=== PATIENT | male | born 1955 | race Caucasian/White ===

== ENCOUNTER → 2017-10-31 12:55 | Outpatient (CLI) | payer MEDICAID, SELFPAY ==
--- NOTE | 2017-10-31 13:00 | VDLE_ITS ---
Reason For Study: DVT (09/03/2017) RIGHT LEFT CFV is compressible, spontaneous, phasic, CFV is compressible, spontaneous, phasic, competent and demonstrates normal competent, and demonstrates normal augmentation. augmentation. FV is compressible, spontaneous, phasic, competent and demonstrates normal augmentation. POP V is compressible, spontaneous, phasic, competent and demonstrates normal augmentation. PTV is compressible. RT PerV is compressible. T/P Trunk is compressible. GSV is compressible at SFJ. GSV is partially compressible from proximal thigh to ankle. Interpretation Summary Deep veins of the right lower extremity are patent and compressible segmentally. There is no evidence of right lower extremity deep vein thrombosis. Valvular competence appears intact within the proximal deep venous system on the right . The right great saphenous vein near the sapheno- femoral junction is patent and compressible. Chronic venous changes are noted in the right great saphenous vein, from the right proximal thigh to the ankle. Ordering Physician: Zach Castillo Referring Physician: Ada Maravilla Performed By: Ariana Rollins, EMMA, RVT
== END ==
PROVIDERS: Family Provider Internal Medicine; PCP Internal Medicine; Visit Provider Internal Medicine Cardiovascular Disease
DX: I82.409 Acute embolism and thrombosis of unspecified deep veins of unspecified lower extremity (principal)
CPT/HCPCS: 93971

== ENCOUNTER 2017-11-11 12:25 | Emergency (ER) | payer MEDICAID, SELFPAY ==
[2017-11-11 12:26] VITALS: BP 159/75; PULSE 50; RESP 14; TEMP 36.8; O2SAT 98; BMI 37.7
--- NOTE | 2017-11-11 12:47 | RAD_ITS ---
STUDY: X-RAY - UNILATERAL RIBS ( LEFT ) WITH CHEST REASON FOR EXAM: Male, 62 years old. Left lower anterior rib pain. TECHNIQUE - RIBS: 4 view(s) of the ribs. TECHNIQUE - CHEST: Single PA view of the chest. COMPARISON: Comparison is made with prior chest radiograph dated September 02, 2017. FINDINGS - RIBS: Nondisplaced fractures involving the anterolateral aspects of the left seventh and eighth ribs. FINDINGS - CHEST: Stable mild elevation of the right hemidiaphragm. Stable increased markings at the lung bases with areas of confluence worse in the right lower lobe suggestive of scarring. There has been essentially no change. There is no demonstrated pleural abnormality. There is borderline cardiomegaly. Normal mediastinum and annamarie. Normal visualized pulmonary arteries. Normal visualized aortic arch and descending thoracic aorta. Normal visualized thoracic spine. Normal visualized ribs, clavicles, and shoulders. There is no demonstrated abnormality of the visualized soft tissue structures of the upper abdomen. RAD/Ribs Uni Min 3V w/PA Chest IMPRESSION: RIBS: Nondisplaced fractures involving the anterolateral aspects of the left seventh and eighth ribs. CHEST: Stable scarring at the lung bases. Electronically Signed: Duke Duran MD at 13:30 EST Tel [phone], Service support ,
--- NOTE | 2017-11-11 13:58 | ED.VISSUMM ---
- ER Visit Summary Date of Service: 11/11/17 Chief Complaint: [Injury to left chest] History of Present Illness: The patient is a 62 M [resents to the emergency department with pain to his left chest that started 5 days ago. Patient states that he was reaching over the top of a dumpster and felt a pop in his left ribs. Patient has had significant pain since that time. Patient complains of pain is worse with movement and deep breath. Patient's been taken ibuprofen which has not been relieving his pain. Patient denies any fever or cough. Denies any significant shortness of breath. Patient does have a history of A. fib and is on Xarelto.] Physical Examination: [HEENT-PERRLA, EOMI. Cranial nerves II through XII grossly intact. TMs clear. Mucous membranes moist. No adenopathy. Cardiovascular-regular rate and rhythm without murmur or ectopy Lungs-clear to auscultation, chest wall stable without crepitus or subcu emphysema. Patient does have tenderness to palpation over the left mid ribs in the mid axillary line that reproduces his pain. There is no ecchymosis or bruising noted. Abdomen-normoactive bowel sounds, soft, nontender, no rebound or rigidity, no peritoneal signs. Extremities-intact ?4, normal range of motion, normal pulses, atraumatic] Test Results: [X-rays of the left ribs obtained as well as chest x-ray showed fractures nondisplaced of ribs 7 and 8. No evidence of pneumothorax.] Emergency Department Course and Treatment: [Patient did not anything for pain initially.] Treatment Plan: [Patient will be given a prescription for Percocet for pain and advised to follow-up with his primary care physician within next 5-7 days.] Disposition: [Discharged to home in stable condition. Patient advised to return if worsening pain, hemoptysis, or increasing shortness of breath.] Impression: [Fracture left seventh and eighth ribs] This note was generated with [employer] dictation software. It may contain incorrect words, spelling, and punctuation that were not noted in review of the chart prior to signing ED Disposition - Plan for ED Patient: Chief Complaint: Chest Other Referrals: Ada Maravilla MD [Primary Care Provider] -
--- NOTE | 2017-11-11 14:01 | ED.DEP ---
ED Disposition - Plan for ED Patient: Chief Complaint: Chest Other Instructions: ED Fx Rib Prescriptions: Oxycodone HCl/Acetaminophen [Percocet 5/325] 1 tab PO Q6H PRN PRN #20 tab PRN Reason: Pain Referrals: Ada Maravilla MD [Primary Care Provider] - 5-7 Days
[2017-11-11 14:08] VITALS: BP 159/84; PULSE 59; RESP 18; TEMP 36.2; O2SAT 99
== END 2017-11-11 14:09 | disposition home or self-care (01) ==
PROVIDERS: Emergency Provider Emergency Medicine; Family Provider Internal Medicine; PCP Internal Medicine
DX: S22.42XA Multiple fractures of ribs, left side, initial encounter for closed fracture (principal); I48.91 Unspecified atrial fibrillation; I10 Essential (primary) hypertension; Z79.02 Long term (current) use of antithrombotics/antiplatelets; Z79.82 Long term (current) use of aspirin; Z79.891 Long term (current) use of opiate analgesic; Z79.899 Other long term (current) drug therapy; X58.XXXA Exposure to other specified factors, initial encounter; Y93.89 Activity, other specified; Y92.89 Other specified places as the place of occurrence of the external cause; Y99.8 Other external cause status
CPT/HCPCS: 71101; 99282

== ENCOUNTER 2017-11-26 05:19 | Day surgery (SDC) | payer MEDICAID, SELFPAY ==
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
[2017-11-26 05:44] VITALS: BP 153/87; PULSE 59; RESP 16; TEMP 36.3; O2SAT 96; BMI 38.0
[2017-11-26] MEDS: Clindamycin 900 MG/50 ML BAG 75 MG IV (07:08)
[2017-11-26] MEDS: Bupiv/Epi 0.5% Mpf 30 ML Vial (07:44)
[2017-11-26 07:54] VITALS: BP 139/78; BP 153/87; PULSE 67; RESP 16; TEMP 36.2; O2SAT 93
[2017-11-26 08:00] VITALS: BP 142/88; BP 153/87; PULSE 72; RESP 16; O2SAT 94
[2017-11-26] MEDS: Ketorolac 30 MG/ML Syringe IV (08:03)
--- NOTE | 2017-11-26 08:05 | OP.PCM_ITS ---
Report of Operation Date of Procedure: 11/26/17 Pre-Operative Diagnosis: Right knee medial meniscus tear. Right knee possible lateral meniscus tear. Right knee chondromalacia Post-Operative Diagnosis: Right knee medial meniscus tear. Right knee chondromalac Surgery/Procedure Performed:: 1. Right knee arthroscopic partial medial meniscectomy. 2. Right knee arthroscopic medial compartment chondroplasty Description of Surgical Findings:: See operative report software engineering manager: None Type of Anesthesia:: General Anesthesiologist: Berto Hendrickson Special Medications: 900 mg clindamycin Estimated Blood Loss (mL): 5 Fluids Replaced: 1000 ml crystalloid Description of Procedure: 62-year-old male who presented to my office with mechanical knee pain acute in onset. MRI revealed anterior horn and posterior horn medial meniscus tears with possible posterior horn lateral meniscus tear with chondromalacia. Risks and benefits of arthroscopic treatment were discussed the patient is arthroscopy was recommended after failing conservative treatment. Risks included but were not limited to blood loss, DVTs, PEs, neurovascular damage, infection, general risk of anesthesia including loss of life. Patient demonstrated understanding and was able to sign informed consent. On the date of the procedure, the patient's R lower extremity was marked in the preoperative area. Patient was brought back to the operating room where they were transferred to the bed. Anesthesia assumed control of the C-spine airway and administered anesthetic. All bony prominences were identified and well- padded and the R leg was placed in the arthroscopic leg fritz. The contralateral leg was then draped over the bed and well-padded. There was padding underneath both sciatic nerves. The foot of the bed was then dropped and the R leg was prepped in a sterile fashion. The surgeon then scrubbed. Upon reentering the room, the operative leg was draped in a standard orthopedic fashion. A timeout was called, everyone agreed upon the side, the site, the procedure to be performed, patient's identity and antibiotics given. Incisions were marked out for the medial and lateral infrapatellar portals. Esmarch bandage was then used to exsanguinate the leg and tourniquet was placed at 250 mmHg. At this time, the lateral portal incision was made in a vertical fashion. The trocar was placed into the joint. The camera was then placed and the patellofemoral joint was visualized. The patella did appear to have 3 chondral changes. The trochlea appeared to have 3 chondral changes. We then directed our attention to the medial gutter where there was no foreign body. Then directed our attention to the medial joint compartment. There were grade 2 chondral changes on the medial distal femur area over the lateral portion of the medial distal femoral condyle with a cartilage flap, grade 2-3 chondral changes on the medial tibial plateau. The medial meniscus had large posterior horn cleavage tear and anterior horn radial tear. Fragments from the anterior horn made initial visualization difficult. The medial portal was then placed under direct visualization using a spinal needle an 11 blade scalpel. Once the portal was made the shaver was placed in the knee in the anterior horn frayed fragments were debrided. This exposed a true anterior horn tear in the anterior portion of the meniscus tear was debrided until there were no free edges once this was done a probe was placed in the joint and the meniscus was probed finding arch posterior horn cleavage tear confirmation. The biters and laura were then used sequentially to debriding get rid of any free edges that could be a source of pain and catching in the meniscus tear. Once we felt medial meniscus tear was adequately debrided, we again visualized the joint and noted the meniscus tear was adequately debrided. At this time we also noted the cartilage flap on the distal femoral condyle which was debrided with the shaver back to healthy cartilage performing a chondroplasty. Attention was then turned towards the notch where the anterior cruciate ligament was intact. PCL was visualized and appeared intact. Attention was then directed towards the lateral compartment where the lateral distal femur had minimal chondral changes, the lateral proximal tibia had minimal chondral changes. The lateral meniscus was probed with a 90? probe and found to be stable with no significant tears. We then directed our attention to the lateral gutter, which was visualized and no free bodies were noted. At this time the wound was copiously irrigated out with normal saline with epinephrine. The wound was closed with 4-0 nylon and 0.5% Marcaine and epinephrine were injected for local anesthetic. Xeroform was placed over the incision. Sterile dressing was placed. Compressive dressing was placed. Tourniquet was let down. For that there was then placed up. Patient was awakened by anesthesia patient was transferred to the PACU for recovery in stable condition. Postoperative plan: Patient will be made weight-bear as tolerated. Return to activities as tolerated. He will come to the office in 2 weeks for postoperative wound check and suture removal. If he is doing well that time he can follow-up as needed. - Complications None - Admit VTE Documentation VTE Present on Admission: No VTE Mechan Device Prophylaxis: SCD's, Thigh High DARIELA Hose VTE Pharm Prophylaxis ordered?: Yes
[2017-11-26 08:15] VITALS: BP 149/85; BP 153/87; PULSE 65; RESP 16; O2SAT 95
[2017-11-26 08:30] VITALS: BP 146/83; BP 153/87; PULSE 68; RESP 16; TEMP 36.3; O2SAT 97
[2017-11-26 09:00] VITALS: BP 153/87
== END 2017-11-26 09:32 | disposition home or self-care (01) ==
LOC: SDC 05:20 → AC 05:21
PROVIDERS: Family Provider Internal Medicine; PCP Internal Medicine; Visit Provider Specialist
PROC: (CPT 29870; principal; 2017-11-26 06:55)
DX: S83.241A Other tear of medial meniscus, current injury, right knee, initial encounter (principal); M94.261 Chondromalacia, right knee; I11.0 Hypertensive heart disease with heart failure; I50.9 Heart failure, unspecified; I48.91 Unspecified atrial fibrillation; E78.00 Pure hypercholesterolemia, unspecified; I80.9 Phlebitis and thrombophlebitis of unspecified site; G47.30 Sleep apnea, unspecified; Z86.73 Personal history of transient ischemic attack (TIA), and cerebral infarction without residual deficits; Z79.02 Long term (current) use of antithrombotics/antiplatelets; Z79.891 Long term (current) use of opiate analgesic; Z79.82 Long term (current) use of aspirin; Z79.899 Other long term (current) drug therapy; X58.XXXA Exposure to other specified factors, initial encounter; Y93.9 Activity, unspecified; Y92.9 Unspecified place or not applicable; Y99.9 Unspecified external cause status
CPT/HCPCS: 01400; 29881; J7120; J2405

== ENCOUNTER → 2017-11-28 13:53 | Outpatient (CLI) | payer MEDICAID, SELFPAY ==
--- NOTE | 2017-11-28 13:55 | VDLE_ITS ---
Reason For Study: RLE pain RIGHT LEFT GSV is normal. CFV is compressible, spontaneous, phasic, CFV is compressible, spontaneous, phasic, competent, and demonstrates normal competent and demonstrates normal augmentation. augmentation. FV is compressible, spontaneous, phasic, competent and demonstrates normal augmentation. POP V is compressible, spontaneous, phasic, competent and demonstrates normal augmentation. T/P Trunk is compressible. PTV is compressible. Unable to visualize PER V due to edema and vessel depth. Prev exam 10/31/17 partial SVT in GSV; Appears resolved. Procedure Exam performed in department. The study was technically difficult. The exam was diagnostic. A preliminary report was called and/or faxed to Dr. He @ [phone] @ 3:00 pm. Interpretation Summary Deep veins of the right lower extremity are patent and compressible segmentally. There is no evidence of right lower extremity deep vein thrombosis. Valvular competence appears intact within the proximal deep venous system on the right . The right greater saphenous vein appears patent and compressible segmentally. The right peroneal vein was not visualized due to edema. 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 Ordering Physician: Prudencio He Referring Physician: Ada Maravilla Performed By: Ariana Rollins, JEWELCS, RVT
== END ==
PROVIDERS: Family Provider Internal Medicine; PCP Internal Medicine; Visit Provider Specialist
DX: M25.561 Pain in right knee (principal)
CPT/HCPCS: 93971

== ENCOUNTER → 2017-12-12 08:33 | Outpatient (CLI) | payer MEDICAID, SELFPAY ==
[2017-12-12 09:49] LABS: AST(SGOT) 43 U/L (15-37); Alanine Aminotransfer ALT/SGPT 34 U/L (16-61); Albumin, Serum 2.9 g/dL (3.2-5.0); Alkaline Phosphatase 167 U/L (45-117); Bilirubin, Direct 0.45 mg/dL (0.00-0.30); Cholesterol 131 mg/dL (200); Globulin 3.9 g/dL (2.2-4.2); High Density Lipoprotein 57 mg/dL; Protein, Total 6.8 g/dL (6.4-8.2); Triglycerides 79 mg/dL; Very Low Density Lipoprotein 16 mg/dL (5-40)
[2017-12-12 09:53] LABS: Thyroid Stim Hormone (TSH) 1.26 uIU/mL (0.358-3.74)
== END ==
PROVIDERS: Internal Medicine Cardiovascular Disease; Family Provider Internal Medicine; PCP Internal Medicine; Visit Provider Nurse Practitioner Family
DX: I25.10 Atherosclerotic heart disease of native coronary artery without angina pectoris (principal); Z79.899 Other long term (current) drug therapy
CPT/HCPCS: 36415; 80061; 80076; 84439; 84443

== ENCOUNTER → 2018-02-03 12:18 | Outpatient (CLI) | payer MEDICAID, SELFPAY ==
[2018-02-03 14:13] LABS: Anion Gap 6 (5-15); BUN 22 mg/dL (7-18); BUN/Creat Ratio 14.1 RATIO (10-20); Calcium,Total 8.3 mg/dL (8.5-10.1); Chloride 108 mmol/L (98-107); Creatinine, Serum 1.56 mg/dL (0.70-1.30); EST Glomerular Filtration Rate 48 mL/min (>60); Est Glom Filt Rate - Afr Amer 59 mL/min (>60); Glucose 100 mg/dL (74-106); Potassium 4.3 mmol/L (3.5-5.1); Sodium Level 141 mmol/L (136-145)
== END ==
PROVIDERS: Family Provider Internal Medicine; PCP Internal Medicine; Visit Provider Internal Medicine Cardiovascular Disease
DX: I50.9 Heart failure, unspecified (principal); N28.9 Disorder of kidney and ureter, unspecified
CPT/HCPCS: 36415; 80048

== ENCOUNTER → 2018-04-20 08:50 | Outpatient (CLI) | payer MEDICAID, SELFPAY ==
[2018-04-20 10:10] LABS: Anion Gap 8 (5-15); BUN 13 mg/dL (7-18); BUN/Creat Ratio 10.3 RATIO (10-20); Calcium,Total 7.9 mg/dL (8.5-10.1); Chloride 107 mmol/L (98-107); Creatinine, Serum 1.26 mg/dL (0.70-1.30); EST Glomerular Filtration Rate 62 mL/min (>60); Est Glom Filt Rate - Afr Amer 75 mL/min (>60); Glucose 117 mg/dL (74-106); Potassium 4.1 mmol/L (3.5-5.1); Sodium Level 143 mmol/L (136-145)
== END ==
PROVIDERS: Family Provider Internal Medicine; PCP Internal Medicine; Visit Provider Internal Medicine Cardiovascular Disease
DX: I42.8 Other cardiomyopathies (principal); I43 Cardiomyopathy in diseases classified elsewhere; I48.2 Chronic atrial fibrillation; I25.10 Atherosclerotic heart disease of native coronary artery without angina pectoris; I11.0 Hypertensive heart disease with heart failure; I50.9 Heart failure, unspecified
CPT/HCPCS: 36415; 80048

== ENCOUNTER 2018-05-04 22:12 | Observation (INO) | payer MEDICAID, SELFPAY ==
[2018-05-04 22:13] VITALS: BP 166/92; PULSE 78; RESP 18; TEMP 36.1; O2SAT 98; BMI 38.0
--- NOTE | 2018-05-04 22:17 | ED.RN ---
RN CALLED FOR EKG, PULLED OLD EKG'S FOR
[2018-05-04 22:35] VITALS: BP 170/86; PULSE 74; RESP 14; TEMP 36.7; O2SAT 98
--- NOTE | 2018-05-04 22:53 | EKG12_ITS ---
Test Reason : CP Blood Pressure : / mmHG Vent. Rate : 073 BPM Atrial Rate : 073 BPM P-R Int : 182 ms QRS Dur : 104 ms QT Int : 432 ms P-R-T Axes : 038 -09 032 degrees QTc Int : 475 ms Normal sinus rhythm Normal ECG Confirmed by CHERISE MARTINES, LARA ([id number]), book or script editor JANETH DING ([id number]) on 05/07/2018 9:56:29 AM Referred By: KENRICK Confirmed By:LARA LUONG MD
--- NOTE | 2018-05-04 22:55 | RAD_ITS ---
STUDY: X-RAY CHEST REASON FOR EXAM: Male, 62 years old. Chest pain. TECHNIQUE: Single AP portable view of the chest. COMPARISON: September 02, 2017. FINDINGS: Telemetry wires overlie the chest. Lungs are mildly hypoexpanded. There is no acute infiltrate or mass. There is no demonstrated pleural abnormality. Follow-up Normal mediastinum and annamarie. Normal visualized pulmonary arteries. Normal visualized aortic arch and descending thoracic aorta. The thoracic spine is obscured by the mediastinum. Normal visualized ribs, clavicles, and shoulders. There is no demonstrated abnormality of the visualized soft tissue structures of the upper abdomen. RAD/Chest 1 View (Portable) IMPRESSION: Borderline cardiomegaly without acute pulmonary abnormality or major interval change Electronically Signed: Alexis Nelson DO at 23:24 EDT Tel [phone], Service support ,
--- NOTE | 2018-05-04 22:56 | ED.DCSUM_ITS ---
- ER Visit Summary Date of Service: 05/04/18 Chief Complaint: Chest pain History of Present Illness: The patient is a 62 M sudden chest pain while driving home around 7 PM. Pain is sharp midsternal rating into his scapula bilaterally. Complains of dyspnea and nausea. No diaphoresis. Pain 7 out of 10. Currently states there is tightness. No arm numbness. Denies previous similar symptoms in the past. Denies history of NC. Patient followed by Dr. Castillo history of chronic A. fib. Stress test in August pre- cardioversion. He is on baby aspirin, Xarelto. DVT in the past. No missed doses of medications. States he had a heart cath 5-[address] Zurita with no intervention. Physical Examination: General: Alert and oriented ?3, no acute distress HEENT: Normocephalic, atraumatic. Moist mucosa membranes Neck: supple, nontender. Cardiovascular: Regular rate and rhythm, no murmurs Respiratory: Normal breath sounds, symmetric, no distress Abdomen: Soft, nontender, nondistended Extremities: Nontender, minimal lower extremity edema, pulses intact ?4 Neuro: no focal neurological deficits. Test Results: EKG: Sinus rhythm rate of 73, no ST or T-wave changes. Hemoglobin 12.5. Creatinine 1.55. Platelets 123. Troponin negative. Chest x- ray negative. Emergency Department Course and Treatment: Patient given additional aspirin, nitro series given symptom-free on reevaluation. Cardiac workup negative. Creatinine 1.55, creatinine with range from 1.02-1.56. Platelets 123, previous platelets in September is 97. GLORIA scores a 3. Heart scores a 4. He is on Xarelto. He has risk factors. Discussed with Dr. Arevalo for admission for cardiac rule out. Treatment Plan: [] Disposition: Admission Impression: Acute chest pain This note was generated with [employer] dictation software. It may contain incorrect words, spelling, and punctuation that were not noted in review of the chart prior to signing ED Disposition - Plan for ED Patient: Disposition: Acute Care Hospital [facility] Chief Complaint: Chest Pain Diagnosis: Chest pain Referrals: Ada Maravilla MD [Primary Care Provider] -
[2018-05-04 23:03] VITALS: BP 146/72; PULSE 68
[2018-05-04 23:04] LABS: Absolute Lymphocyte Count 1.51 X10^3/ul (0.83-4.51); Basophil# 0.01 X10^3/uL; Basophil% 0.2 % (0-1); Eosinophil# 0.08 X10^3/uL; Eosinophils% 1.9 % (0-5); Hematocrit 37.3 % (40-54); Hemoglobin 12.5 g/dl (13.0-16.5); Lymphocyte # 1.51 X10^3/ul (4.0); Lymphocyte % 35.9 % (19-41); Mean Corp Hgb Conc 33.5 g/gl (32-36); Mean Corpuscular Hgb 32.1 pg (27.0-32.0); Mean Corpuscular Volume 95.6 fL (80-94); Mean Platelet Vol. 10.9 fl (6.2-12.0); Monocyte# 0.61 X10^3/uL; Monocyte% 14.5 % (0-10); Neutrophil % 47.5 % (47-70); Platelet Count 123 K/mm3 (150-450); RBC Distribution Width CV 13.9 % (11.6-14.6); RBC Distribution Width SD 46.9 fl (35.1-43.9); White Blood Count 4.2 K/mm3 (4.4-11.0)
[2018-05-04] MEDS: Aspirin 81 MG TAB.CHEW 162 MG PO (23:04)
[2018-05-04 23:08] VITALS: BP 163/96; PULSE 77
[2018-05-04 23:09] LABS: POSITIVE COUNT NO; POSITIVE DIFFERENTIAL NO
[2018-05-04 23:10] LABS: POSITIVE MORPHOLOGY NO
[2018-05-04 23:13] VITALS: BP 152/93; PULSE 73
[2018-05-04 23:18] LABS: Anion Gap 6 (5-15); BUN 18 mg/dL (7-18); BUN/Creat Ratio 11.6 RATIO (10-20); Calcium,Total 8.2 mg/dL (8.5-10.1); Chloride 106 mmol/L (98-107); Creatinine, Serum 1.55 mg/dL (0.70-1.30); EST Glomerular Filtration Rate 49 mL/min (>60); Est Glom Filt Rate - Afr Amer 59 mL/min (>60); Estimated Creatinine Clearance 55.63 ml/min; Glucose 126 mg/dL (74-106); Potassium 3.5 mmol/L (3.5-5.1); Sodium Level 141 mmol/L (136-145)
--- NOTE | 2018-05-04 23:55 | HP.PCM_ITS ---
Problem List (1) Non-ischemic cardiomyopathy Status: Chronic (2) Cardiomyopathy in other diseases classified elsewhere Status: Chronic (3) PAF (paroxysmal atrial fibrillation) Status: Chronic Comment: [facility] in August 2017; (4) GOMEZ (dyspnea on exertion) Status: Chronic (5) Obesity (BMI 30-39.9) Status: Chronic (6) HTN (hypertension) Status: Chronic (7) History of cardioversion Status: Resolved (8) H/O cardiac catheterization Status: Resolved (9) History of echocardiogram Status: Resolved (10) Erectile dysfunction Status: Chronic (11) ZAID (obstructive sleep apnea) Status: Chronic (12) Chest pain Status: Acute Qualifiers: Chest pain type: unspecified Qualified Code(s): R07.9 - Chest pain, unspecified History of Present Illness Date of Admission: 05/04/18 Chief Complaint: chest pain The patient is a 62 year old male patient with a past medical history of atrial fibrillation and cardiomyopathy presents to the ER with chest pain. Onset of the pain began at 7:00 this evening whilst driving. The pain radiated to his shoulder blades and substernal anteriorly. The pain was relieved by nitroglycerin. He states he has had similar chest pain over the past few weeks when he is using his push mower. He is currently free of chest pain. There was a negative stress test in August prior to his cardioversion. He will be admitted for further cardiac workup. Past Medical History Past Medical History (Chronic Problems): Chronic Problems (Last Reviewed 10/17/17 @ 11:10 by Jaclyn Cannon) Valvular heart disease (Chronic) Non-ischemic cardiomyopathy (Chronic) Cardiomyopathy in other diseases classified elsewhere (Chronic) PAF (paroxysmal atrial fibrillation) (Chronic) [facility] in August 2017; GOMEZ (dyspnea on exertion) (Chronic) Obesity (BMI 30-39.9) (Chronic) HTN (hypertension) (Chronic) Long-term use of high-risk medication (Chronic) Chronic atrial fibrillation (Chronic) on Xarelto Benign essential hypertension (Chronic) Erectile dysfunction (Chronic) Obesity (BMI 30-39.9) (Chronic) ZAID (obstructive sleep apnea) (Chronic) CHF (congestive heart failure) (Chronic) Cardiomyopathy (Chronic) CAD (coronary artery disease) (Chronic) DVT (deep venous thrombosis) (Chronic) Medical History: Medical History (Last Reviewed 10/17/17 @ 11:10 by Jaclyn Cannon) HTN (hypertension) (Chronic) I10 History of cardioversion (Resolved) Onset Date: ~08/2017 Z98.890 History of echocardiogram (Resolved) Onset Date: ~08/2017 Z92.89 History of echocardiogram (Acute) Onset Date: ~01/2013 Z92.89 Erectile dysfunction (Chronic) N52.9 Obesity (BMI 30-39.9) (Chronic) E66.9 ZAID (obstructive sleep apnea) (Chronic) G47.33 DVT (deep venous thrombosis) (Chronic) I82.409 Renal insufficiency (Acute) N28.9 Allergies cefuroxime axetil [From Ceftin] Allergy (Verified 05/04/18 22:18) Rash hydrocodone bitartrate [From Vicodin] Allergy (Verified 05/04/18 22:18) Rash Penicillins Allergy (Verified 05/04/18 22:18) Hives DIFFICULTY BREATHING carvedilol [From Coreg] Adverse Reaction (Verified 05/04/18 22:18) Other lisinopril Adverse Reaction (Verified 05/04/18 22:18) Other Home Medications: Ambulatory Orders Medication Instructions Recorded aspirin 81 mg tablet,delayed 81 mg PO QDAY #30 tab 10/07/17 release Acetaminophen [Tylenol Extra 500 - 1,000 mg PO Q6H PRN PRN 11/19/17 Strength] Metoprolol Tartrate [Lopressor 100 mg PO BID 11/19/17 (beta abram)] Rivaroxaban [Xarelto] 20 mg PO QDAY 11/19/17 furosemide 40 mg tablet 40 mg PO QDAY #90 tab 01/16/18 amlodipine 5 mg tablet 5 mg PO QHS #30 tab 04/02/18 pravastatin 20 mg tablet 20 mg PO QHS #30 tab 04/03/18 Amiodarone HCl 200 mg PO DAILY 05/04/18 Surgical History: Surgical History (Last Reviewed 12/11/17 @ 08:43 by Ruddy Bobby) H/O cardiac catheterization (Resolved) Onset Date: ~06/2009 Z98.890 Surgical History: - Psychiatric History: No pertinent psych hx Smoking Status: Never smoker - *Family History Maternal Family History: Family History (Last Reviewed 12/11/17 @ 08:43 by Ruddy Bobby) Mother CAD (coronary artery disease) History Items: Heart Disease Paternal Family History: Family History (Last Reviewed 12/11/17 @ 08:43 by Ruddy Bobby) Mother CAD (coronary artery disease) History Items: Cancer, Heart Disease Review of Systems Constitutional: Denies: Chills, Fever, Weight Change HEENT: Denies: Head Aches, Sinus Congestion, Sinus Drainage Cardiovascular: Reports: Chest Pain. Denies: Palpitations Respiratory: Denies: Cough, Shortness of breath at rest, Sputum production Gastrointestinal: Denies: Abdominal Pain, Nausea, Vomiting Genitourinary: Denies: Dysuria Musculoskeletal: Denies: Joint Pain, Joint Tenderness Skin: Denies: Rash, Wounds Neurological: Denies: Numbness, Tingling, Focal weakness Psychiatric: Denies: Anxiety, Depression, Homicidal Ideations, Suicidal Ideations Hematologic/ Lymphatic: Denies: Easy Bruising, Easy Bleeding VTE Information - Inpt Only VTE Present on Admission: No VTE Mechan Device Prophylaxis: None VTE Pharm Prophylaxis ordered?: No Patient Problems: Active and Suspected Problems (Last Reviewed 10/17/17 @ 11:10 by Jaclyn Cannon ) Chest pain (Acute) - Physical Exam General: Alert, Oriented x3, Cooperative HEENT: Atraumatic, Normocephalic Neck: Supple Lungs: Clear to auscultation, Normal air movement Cardiovascular: Regular rate, Normal S1, Normal S2, No murmurs Abdomen: Bowel Sounds Present, Soft, Non Tender, Obese Extremities: Capillary Refill Less than 3 Seconds, Edema - 2+ lower ext edema Skin: No rashes Musculoskeletal: No Tenderness to Palpation of Joints or Extremities Neurological: Neuro grossly intact Psych/Mental Status: Normal Affect, Appropriate Vital Signs Temp Pulse Resp BP Pulse Ox 98.0 F 73 14 152/93 H 98 05/04/18 22:35 05/04/18 23:13 05/04/18 22:35 05/04/18 23:13 05/04/18 22:35 Oxygen Flow Rate (L/min) 2 Oxygen Delivery Method Nasal Cannula Weight: 280 lb Body Mass Index (BMI) 38.0 Finger Stick Blood Glucose 86 Laboratory Tests Past 24 Hrs 05/04/18 05/04/18 22:50 22:50 WBC 4.2 L RBC 3.90 L Hgb 12.5 L Hct 37.3 L MCV 95.6 H MCH 32.1 H MCHC 33.5 RDW 13.9 RDW Differential 46.9 H Plt Count 123 L MPV 10.9 Immature Gran % (Auto) 0.000 Neut % (Auto) 47.5 Lymph % (Auto) 35.9 Dixie % (Auto) 14.5 H Eos % (Auto) 1.9 Baso % (Auto) 0.2 Absolute Neuts (auto) 2.0 Absolute Lymphs (auto) 1.51 Total Counted Not Reportable Sodium 141 Potassium 3.5 Chloride 106 Carbon Dioxide 29.0 Anion Gap 6 BUN 18 Creatinine 1.55 H Estim Creat Clear Calc 55.63 Est GFR (MDRD) Af Amer 59 L Est GFR (MDRD) Non-Af 49 L BUN/Creatinine Ratio 11.6 Glucose 126 H Calcium 8.2 L Troponin I < 0.015 Assessment/Plan All Active Problems (Last Reviewed 10/17/17 @ 11:10 by Jaclyn Cannon) History of cardioversion (Resolved ~08/2017) H/O cardiac catheterization (Resolved ~06/2009) History of echocardiogram (Resolved ~08/2017) History of echocardiogram (Acute ~01/2013) Chest pain (Acute) VTE (venous thromboembolism) (Acute) Dyspnea (Acute) Renal insufficiency (Acute) Syphilis (Resolved) Cerebrovascular disease (Ruled-out) Chronic Problems (Last Reviewed 10/17/17 @ 11:10 by Jaclyn Cannon) Valvular heart disease (Chronic) Non-ischemic cardiomyopathy (Chronic) Cardiomyopathy in other diseases classified elsewhere (Chronic) PAF (paroxysmal atrial fibrillation) (Chronic) DCCV in August 2017; GOMEZ (dyspnea on exertion) (Chronic) Obesity (BMI 30-39.9) (Chronic) HTN (hypertension) (Chronic) Long-term use of high-risk medication (Chronic) Chronic atrial fibrillation (Chronic) on Xarelto Benign essential hypertension (Chronic) Erectile dysfunction (Chronic) Obesity (BMI 30-39.9) (Chronic) ZAID (obstructive sleep apnea) (Chronic) CHF (congestive heart failure) (Chronic) Cardiomyopathy (Chronic) CAD (coronary artery disease) (Chronic) DVT (deep venous thrombosis) (Chronic) plan - admit to progressive care unit for observation - cycle cardiac enzymes - morphine, nitro and aspirin per routine - nuclear exercise stress test in am - continue routine medications - DC home if stress test negative - He routinely sees Dr Castillo for cardiology care Code Visit OBSV E&M: [id number] Initial observation care L2
[2018-05-05] VITALS (7 sets, daily range): BP systolic 139–154; BP diastolic 68–91; PULSE 59–69; RESP 15–18; TEMP 36.5–36.7; O2SAT 98; BMI 38.0
--- NOTE | 2018-05-05 00:48 | NURSING ---
Called Peter Martin RN in ED at 0026 and informed that patient could be transferred at this time. Called Sara Han for EKG at 0045.
[2018-05-05] MEDS: Calcium Carbonate 500 MG Tablet PO (01:45)
[2018-05-05 02:58] LABS: Hematocrit 33.9 % (40-54); Hemoglobin 11.2 g/dl (13.0-16.5); Mean Corpuscular Hgb 31.8 pg (27.0-32.0); Mean Corpuscular Volume 96.3 fL (80-94); Mean Platelet Vol. 10.5 fl (6.2-12.0); Platelet Count 97 K/mm3 (150-450); RBC Distribution Width SD 47.2 fl (35.1-43.9); Red Blood Count 3.52 M/mm3 (4.6-6.2); White Blood Count 2.6 K/mm3 (4.4-11.0)
[2018-05-05 03:02] LABS: International Normalized Ratio 3.2; Prothrombin Time (Protime)PT. 32.9 SECONDS (11.7-14.9)
[2018-05-05 03:03] LABS: Partial Thromboplast Time 40.5 Seconds (24.1-36.2)
[2018-05-05 03:22] LABS: ALB/GLOB Ratio 0.8 RATIO (0.9-2.4); AST(SGOT) 36 U/L (15-37); Alanine Aminotransfer ALT/SGPT 28 U/L (16-61); Albumin, Serum 2.6 g/dL (3.2-5.0); Alkaline Phosphatase 162 U/L (45-117); Anion Gap 9 (5-15); BUN 18 mg/dL (7-18); BUN/Creat Ratio 13.3 RATIO (10-20); Calcium,Total 7.8 mg/dL (8.5-10.1); Chloride 107 mmol/L (98-107); Cholesterol 97 mg/dL (200); Creatinine, Serum 1.35 mg/dL (0.70-1.30); EST Glomerular Filtration Rate 57 mL/min (>60); Est Glom Filt Rate - Afr Amer 69 mL/min (>60); Estimated Creatinine Clearance 63.87 ml/min; Globulin 3.4 g/dL (2.2-4.2); Glucose 108 mg/dL (74-106); High Density Lipoprotein 41 mg/dL; Potassium 3.6 mmol/L (3.5-5.1); Sodium Level 144 mmol/L (136-145); Triglycerides 88 mg/dL; Very Low Density Lipoprotein 18 mg/dL (5-40)
[2018-05-05] MEDS: Aspirin E.C. 81 MG Tablet PO (05:55)
[2018-05-05 05:56] LABS: Absolute Lymphocyte Count 1.17 X10^3/ul (0.83-4.51); Absolute Neutrophil Count 1.2 X10^3/uL (2.0-7.7); Basophil# 0.01 X10^3/uL; Basophil% 0.4 % (0-1); Eosinophil# 0.08 X10^3/uL; Eosinophils% 2.9 % (0-5); Lymphocyte # 1.17 X10^3/ul (4.0); Lymphocyte % 41.8 % (19-41); Monocyte# 0.31 X10^3/uL; Monocyte% 11.1 % (0-10); Neutrophil # 1.22 X10^3/uL (2.7-7.7); Neutrophil % 43.4 % (47-70); POSITIVE COUNT NO; POSITIVE DIFFERENTIAL NO; POSITIVE MORPHOLOGY NO
--- NOTE | 2018-05-05 06:15 | NURSING ---
pt to stress test.
--- NOTE | 2018-05-05 09:21 | STRESSREP_ITS ---
Stress Test Report Date: 05/05/2018 Procedure: Pharmacologic stress nuclear imaging study Indications: Chest pain; atrial fibrillation; nonsustained E related cardiomyopathy Consent: Per the patient Procedure: The patient underwent pharmacologic (Regadenoson) evaluation with a peak heart rate of 80 beats per minute (50 predicted maximal heart rate) and a peak blood pressure of 162/88 mmHg. The baseline ECG demonstrated sinus rhythm: IVCD. The peak pharmacologic ECG demonstrated no obvious ECG changes. There was an occasional PVC post infusion. There was no complaint of chest discomfort during pharmacologic infusion or recovery. The examination was discontinued secondary to completion of protocol. Impression: 1. Pharmacologic (Regadenoson) evaluation 2. Peak pharmacologic ECG with no obvious ECG changes. 3. There was an occasional PVC post infusion 4. Nuclear images pending Myocardial perfusion imaging study: Technique: The patient was injected with 14.8 millicuries of technetium 99m Cardiolite and subsequently rest SPECT Cardiolite nuclear imaging was obtained in the horizontal long, vertical long, and short axis views. The patient underwent pharmacologic (Regadenoson) evaluation with a peak heart rate of 80 beats per minute (50 % percent predicted maximal heart rate) and a peak blood pressure of 162/88 mmHg. The patient was injected with 45 millicuries of technetium 99m Cardiolite and subsequently stress SPECT Cardiolite nuclear imaging was obtained in the horizontal long, vertical long, and short axis views. A gated Cardiolite study at peak stress was obtained. Interpretation: Rest and stress SPECT Cardiolite nuclear imaging status post realignment, normalization, and attenuation correction demonstrate an area of diminished absence of tracer uptake in the apical segments without significant change between rest and stress. There is diminished end systolic thickening and brightening in the aforementioned areas. The reported LVEF is 59 %. Impression: 1. Rest and stress SPECT Cardiolite nuclear imaging demonstrate an area of diminished absence of myocardial perfusion/tracer uptake in portions of the apical areas without significant change between rest and stress appearing compatible with an area of previous myocardial injury/infarction with no myocardial perfusion changes consider diagnostic for associated stress-induced myocardial ischemia. 2. The gated Cardiolite study reports an LVEF of 59 %. This note was generated with [employer] software. It may contain incorrect words, spelling, and punctuation that were not noted in checking the note before signing.
[2018-05-05] MEDS: Amiodarone 200 MG Tablet PO (09:38)
[2018-05-05] MEDS: Rivaroxaban 20 MG Tablet PO (09:38)
[2018-05-05] MEDS: Furosemide 40 MG Tablet PO (09:38)
[2018-05-05] MEDS: Metoprolol Tartrate 100 MG Tablet PO (09:39)
--- NOTE | 2018-05-05 11:41 | DCINST_ITS ---
- Discharge Diagnoses Current Active Problems: Current Active and Chronic Problems (Last Reviewed 10/17/17 @ 11:10 by Jaclyn Cannon) Chest pain (Acute) You will use the following diet at home:: Cardiac Your food should be the consistency of: Regular Your liquids should be the consistency of: Regular/Thin Discharge Activity: Return to Normal Activity Allergies/Adverse Reactions: Allergies cefuroxime axetil [From Ceftin] Allergy (Verified 05/04/18 22:18) Rash hydrocodone bitartrate [From Vicodin] Allergy (Verified 05/04/18 22:18) Rash Penicillins Allergy (Verified 05/04/18 22:18) Hives DIFFICULTY BREATHING carvedilol [From Coreg] Adverse Reaction (Verified 05/04/18 22:18) Other lisinopril Adverse Reaction (Verified 05/04/18 22:18) Other Medications to take at Discharge aspirin 81 mg tablet,delayed release 81 mg PO QDAY #30 tab 10/07/17 Acetaminophen [Tylenol] 500 - 1,000 mg PO Q6H PRN PRN 11/19/17 Metoprolol Tartrate [Lopressor (beta abram)] 100 mg PO BID 11/19/17 Rivaroxaban [Xarelto] 20 mg PO QDAY 11/19/17 furosemide 40 mg tablet 40 mg PO QDAY #90 tab 01/16/18 amlodipine 5 mg tablet 5 mg PO QHS #30 tab 04/02/18 pravastatin 20 mg tablet 20 mg PO QHS #30 tab 04/03/18 Amiodarone HCl 200 mg PO DAILY 05/04/18 Sildenafil Citrate [Viagra] 100 mg PO PRN PRN 05/05/18 Primary Care Physician: Ada Maravilla MD [Primary Care Provider] - Please follow up with your Primary Care Physician in: 1-2 weeks Test Results: Test results from this visit will be discussed in further detail at your follow- up appointment, if applicable. Please Follow Up With: Zach Castillo MD When: 2 weeks Proposed Discharge Date: 05/05/18
--- NOTE | 2018-05-05 14:02 | PCM.DC.SUM ---
<Srini Laguerre - Last Filed: 05/05/18 14:02> Discharge Date and Diagnosis Date of Admission: 05/04/18 Date of Discharge: 05/05/18 - Primary Discharge Diagnosis Chest pain - Musculoskeletal vs GERD, cardiac etiology ruled out Nonischemic cardiomyopathy PAFib Obesity HTN ZAID - Secondary Discharge Diagnosis Chronic Problems (Last Reviewed 10/17/17 @ 11:10 by Jaclyn Cannon) Valvular heart disease (Chronic) Non-ischemic cardiomyopathy (Chronic) Cardiomyopathy in other diseases classified elsewhere (Chronic) PAF (paroxysmal atrial fibrillation) (Chronic) DCCV in August 2017; GOMEZ (dyspnea on exertion) (Chronic) Obesity (BMI 30-39.9) (Chronic) HTN (hypertension) (Chronic) Long-term use of high-risk medication (Chronic) Chronic atrial fibrillation (Chronic) on Xarelto Benign essential hypertension (Chronic) Erectile dysfunction (Chronic) Obesity (BMI 30-39.9) (Chronic) ZAID (obstructive sleep apnea) (Chronic) CHF (congestive heart failure) (Chronic) Cardiomyopathy (Chronic) CAD (coronary artery disease) (Chronic) DVT (deep venous thrombosis) (Chronic) Hospital Course and Treatment Imaging Results: 05/05/18 05:55 Nuclear Stress Test - Treadmil [NM] AM (NON MEDS) Impression: 1. Rest and stress SPECT Cardiolite nuclear imaging demonstrate an area of diminished absence of myocardial perfusion/tracer uptake in portions of the apical areas without significant change between rest and stress appearing compatible with an area of previous myocardial injury/infarction with no myocardial perfusion changes consider diagnostic for associated stress-induced myocardial ischemia. 2. The gated Cardiolite study reports an LVEF of 59 %. RAD/Chest 1 View (Portable) IMPRESSION: Borderline cardiomegaly without acute pulmonary abnormality or major interval change Operations: None Procedures: Stress test Summary of Care Provided: Physical exam on day of discharge: General: Resting comfortably NAD Psych: A/Ox3 normal affect HEENT: PEARRLA AT NC Neck: Supple NT CV: RRR no m/t/r/g/h Resp: CTA Abd: [id number] Soft NT no guarding or rigidity Ext: DP2+= no edema Skin: W/D normal turgor Lymph/Heme: No active bleeding or adenopathy Neuro: CN2-12 intact Hospital course: The patient is a 62 year old M with a history of nonischemic cardiomyopathy, paroxysmal atrial fibrillation, hypertension, obstructive sleep apnea, obesity, who presented to the emergency room with chest pain that would occur both at rest and when he was pushing his lawnmower, and sometimes worse when he would eat. It was relieved with nitro. He had been having episodes of the past 3 weeks. He did have a negative stress last August prior to his cardioversion. He had a negative troponin, negative EKG negative chest x-ray. He was admitted to the PCU for stress test in the morning. He has troponin cycled overnight, was maintained on telemetry. These were negative. Stress test the following morning was negative. Patient was unsure if it was more related to his use of the lawnmower which would indicate more of a musculoskeletal issue, or if it was more related to his acid reflux for which she had been taking Mylanta for, and he had been noticing the chest pain more after eating. Advised for him to follow-up with his primary care provider in 1-2 weeks. He is going to try an [id number] antacid such as omeprazole or Pepcid. We also discussed his sleep apnea-he admitted that he had not been using his CPAP machine at all. He is going to start trying to use it more. He is discharged home in stable condition. 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 Castillo. I advised him to follow-up with him the next 2 weeks. This patient was seen by Srini Laguerre PA-C under the supervision of Doctor Turcios. [] Discharge Diet: No Restrictions Discharge Activity: Return to Normal Activity Home Medications: Medications to take at Discharge aspirin 81 mg tablet,delayed release 81 mg PO QDAY #30 tab 10/07/17 Acetaminophen [Tylenol] 500 - 1,000 mg PO Q6H PRN PRN 11/19/17 Metoprolol Tartrate [Lopressor (beta abram)] 100 mg PO BID 11/19/17 Rivaroxaban [Xarelto] 20 mg PO QDAY 11/19/17 furosemide 40 mg tablet 40 mg PO QDAY #90 tab 01/16/18 amlodipine 5 mg tablet 5 mg PO QHS #30 tab 04/02/18 pravastatin 20 mg tablet 20 mg PO QHS #30 tab 04/03/18 Amiodarone HCl 200 mg PO DAILY 05/04/18 Sildenafil Citrate [Viagra] 100 mg PO PRN PRN 05/05/18 Primary Care Physician: Ada Maravilla MD [Primary Care Provider] - Please follow up with your Primary Care Physician in: 1-2 weeks Please Follow Up With: Zach Castillo MD When: 2 weeks Medical Necessity - Tobacco Use Smoking Status: Never smoker Tobacco Use: Non-smoker Meaningful Use Info Meaningful Use Diagnoses (Choose all that apply): None applicable <Darline Turcios E - Last Filed: 05/05/18 15:57> Discharge Date and Diagnosis - Secondary Discharge Diagnosis Chronic Problems (Last Reviewed 10/17/17 @ 11:10 by Jaclyn Cannon) Valvular heart disease (Chronic) Non-ischemic cardiomyopathy (Chronic) Cardiomyopathy in other diseases classified elsewhere (Chronic) PAF (paroxysmal atrial fibrillation) (Chronic) DCCV in August 2017; GOMEZ (dyspnea on exertion) (Chronic) Obesity (BMI 30-39.9) (Chronic) HTN (hypertension) (Chronic) Long-term use of high-risk medication (Chronic) Chronic atrial fibrillation (Chronic) on Xarelto Benign essential hypertension (Chronic) Erectile dysfunction (Chronic) Obesity (BMI 30-39.9) (Chronic) ZAID (obstructive sleep apnea) (Chronic) CHF (congestive heart failure) (Chronic) Cardiomyopathy (Chronic) CAD (coronary artery disease) (Chronic) DVT (deep venous thrombosis) (Chronic) Hospital Course and Treatment Summary of Care Provided: Hospitalist note: Discharge summary were reviewed and I agree with the above discharge and treatment plan. Patient admitted for chest pain for evaluation. His cardiac history significant for nonischemic cardiomyopathy, paroxysmal A. fib and hypertension. His EKG was negative for acute ischemic changes. Troponin was negative ?3. Chest x-ray showed no acute findings. He underwent nuclear stress test that reported as negative without evidence of stress-induced myocardial ischemia. This is out. His symptoms attributed to probably musculoskeletal pain versus GERD. Patient discharged home in stable condition, discharged on his chronic home medication without any changes, recommended from PCP in 1-2 weeks and follow-up with cardiology in 2 weeks. - Physical Exam General: Alert, Oriented x3, Cooperative, No apparent distress. HEENT: Atraumatic, PERRLA, EOMI. Neck: Supple, No JVD, Negative Carotid Bruits, Trachea Midline, Thyroid Normal. Lungs: Clear to auscultation, Normal air movement, No rhonchi, No wheeze, No rales. Cardiovascular: Regular rate, Regular Rhythm, Normal S1, Normal S2, PMI Normal. Abdomen: Bowel Sounds Present, Soft, Non Tender, Non-Distended, No Hepato-splenomegaly. Extremities: No clubbing, No cyanosis, No edema Skin: No rashes, No breakdown Neurological: Neuro grossly intact Vital Signs are stable. This note was generated with [employer] dictation software. It may contain incorrect words, spelling, and punctuation that were not noted in checking the note before signing. Disposition: Home Minutes spent on discharge:: 25 Patient Condition:: Stable Meaningful Use Info Meaningful Use Diagnoses (Choose all that apply): None applicable Code Visit OBSV E&M: 82783 Observation care discharge
--- NOTE | 2018-05-05 14:07 | DS.PCM_ITS ---
<Srini Laguerre - Last Filed: 05/05/18 14:02> Discharge Date and Diagnosis Date of Admission: 05/04/18 Date of Discharge: 05/05/18 - Primary Discharge Diagnosis Chest pain - Musculoskeletal vs GERD, cardiac etiology ruled out Nonischemic cardiomyopathy PAFib Obesity HTN ZAID - Secondary Discharge Diagnosis Chronic Problems (Last Reviewed 10/17/17 @ 11:10 by Jaclyn Cannon) Valvular heart disease (Chronic) Non-ischemic cardiomyopathy (Chronic) Cardiomyopathy in other diseases classified elsewhere (Chronic) PAF (paroxysmal atrial fibrillation) (Chronic) DCCV in August 2017; GOMEZ (dyspnea on exertion) (Chronic) Obesity (BMI 30-39.9) (Chronic) HTN (hypertension) (Chronic) Long-term use of high-risk medication (Chronic) Chronic atrial fibrillation (Chronic) on Xarelto Benign essential hypertension (Chronic) Erectile dysfunction (Chronic) Obesity (BMI 30-39.9) (Chronic) ZAID (obstructive sleep apnea) (Chronic) CHF (congestive heart failure) (Chronic) Cardiomyopathy (Chronic) CAD (coronary artery disease) (Chronic) DVT (deep venous thrombosis) (Chronic) Hospital Course and Treatment Imaging Results: 05/05/18 05:55 Nuclear Stress Test - Treadmil [NM] AM (NON MEDS) Impression: 1. Rest and stress SPECT Cardiolite nuclear imaging demonstrate an area of diminished absence of myocardial perfusion/tracer uptake in portions of the apical areas without significant change between rest and stress appearing compatible with an area of previous myocardial injury/infarction with no myocardial perfusion changes consider diagnostic for associated stress-induced myocardial ischemia. 2. The gated Cardiolite study reports an LVEF of 59 %. RAD/Chest 1 View (Portable) IMPRESSION: Borderline cardiomegaly without acute pulmonary abnormality or major interval change Operations: None Procedures: Stress test Summary of Care Provided: Physical exam on day of discharge: General: Resting comfortably NAD Psych: A/Ox3 normal affect HEENT: PEARRLA AT NC Neck: Supple NT CV: RRR no m/t/r/g/h Resp: CTA Abd: [id number] Soft NT no guarding or rigidity Ext: DP2+= no edema Skin: W/D normal turgor Lymph/Heme: No active bleeding or adenopathy Neuro: CN2-12 intact Hospital course: The patient is a 62 year old M with a history of nonischemic cardiomyopathy, paroxysmal atrial fibrillation, hypertension, obstructive sleep apnea, obesity, who presented to the emergency room with chest pain that would occur both at rest and when he was pushing his lawnmower, and sometimes worse when he would eat. It was relieved with nitro. He had been having episodes of the past 3 weeks. He did have a negative stress last August prior to his cardioversion. He had a negative troponin, negative EKG negative chest x-ray. He was admitted to the PCU for stress test in the morning. He has troponin cycled overnight, was maintained on telemetry. These were negative. Stress test the following morning was negative. Patient was unsure if it was more related to his use of the lawnmower which would indicate more of a musculoskeletal issue, or if it was more related to his acid reflux for which she had been taking Mylanta for, and he had been noticing the chest pain more after eating. Advised for him to follow-up with his primary care provider in 1-2 weeks. He is going to try an [id number]-[id number] antacid such as omeprazole or Pepcid. We also discussed his sleep apnea-he admitted that he had not been using his CPAP machine at all. He is going to start trying to use it more. He is discharged home in stable condition. 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 Castillo. I advised him to follow-up with him the next 2 weeks. This patient was seen by Srini Laguerre PA-C under the supervision of Doctor Turcios. [] Discharge Diet: No Restrictions Discharge Activity: Return to Normal Activity Home Medications: Medications to take at Discharge aspirin 81 mg tablet,delayed release 81 mg PO QDAY #30 tab 10/07/17 Acetaminophen [Tylenol] 500 - 1,000 mg PO Q6H PRN PRN 11/19/17 Metoprolol Tartrate [Lopressor (beta abram)] 100 mg PO BID 11/19/17 Rivaroxaban [Xarelto] 20 mg PO QDAY 11/19/17 furosemide 40 mg tablet 40 mg PO QDAY #90 tab 01/16/18 amlodipine 5 mg tablet 5 mg PO QHS #30 tab 04/02/18 pravastatin 20 mg tablet 20 mg PO QHS #30 tab 04/03/18 Amiodarone HCl 200 mg PO DAILY 05/04/18 Sildenafil Citrate [Viagra] 100 mg PO PRN PRN 05/05/18 Primary Care Physician: Ada Maravilla MD [Primary Care Provider] - Please follow up with your Primary Care Physician in: 1-2 weeks Please Follow Up With: Zach Castillo MD When: 2 weeks Medical Necessity - Tobacco Use Smoking Status: Never smoker Tobacco Use: Non-smoker Meaningful Use Info Meaningful Use Diagnoses (Choose all that apply): None applicable <Darline Turcios E - Last Filed: 05/05/18 15:57> Discharge Date and Diagnosis - Secondary Discharge Diagnosis Chronic Problems (Last Reviewed 10/17/17 @ 11:10 by Jaclyn Cannon) Valvular heart disease (Chronic) Non-ischemic cardiomyopathy (Chronic) Cardiomyopathy in other diseases classified elsewhere (Chronic) PAF (paroxysmal atrial fibrillation) (Chronic) DCCV in August 2017; GOMEZ (dyspnea on exertion) (Chronic) Obesity (BMI 30-39.9) (Chronic) HTN (hypertension) (Chronic) Long-term use of high-risk medication (Chronic) Chronic atrial fibrillation (Chronic) on Xarelto Benign essential hypertension (Chronic) Erectile dysfunction (Chronic) Obesity (BMI 30-39.9) (Chronic) ZAID (obstructive sleep apnea) (Chronic) CHF (congestive heart failure) (Chronic) Cardiomyopathy (Chronic) CAD (coronary artery disease) (Chronic) DVT (deep venous thrombosis) (Chronic) Hospital Course and Treatment Summary of Care Provided: Hospitalist note: Discharge summary were reviewed and I agree with the above discharge and treatment plan. Patient admitted for chest pain for evaluation. His cardiac history significant for nonischemic cardiomyopathy, paroxysmal A. fib and hypertension. His EKG was negative for acute ischemic changes. Troponin was negative ?3. Chest x-ray showed no acute findings. He underwent nuclear stress test that reported as negative without evidence of stress-induced myocardial ischemia. This is out. His symptoms attributed to probably musculoskeletal pain versus GERD. Patient discharged home in stable condition, discharged on his chronic home medication without any changes, recommended from PCP in 1-2 weeks and follow-up with cardiology in 2 weeks. - Physical Exam General: Alert, Oriented x3, Cooperative, No apparent distress. HEENT: Atraumatic, PERRLA, EOMI. Neck: Supple, No JVD, Negative Carotid Bruits, Trachea Midline, Thyroid Normal. Lungs: Clear to auscultation, Normal air movement, No rhonchi, No wheeze, No rales. Cardiovascular: Regular rate, Regular Rhythm, Normal S1, Normal S2, PMI Normal. Abdomen: Bowel Sounds Present, Soft, Non Tender, Non-Distended, No Hepato- splenomegaly. Extremities: No clubbing, No cyanosis, No edema Skin: No rashes, No breakdown Neurological: Neuro grossly intact Vital Signs are stable. This note was generated with [employer] dictation software. It may contain incorrect words, spelling, and punctuation that were not noted in checking the note before signing. Disposition: Home Minutes spent on discharge:: 25 Patient Condition:: Stable Meaningful Use Info Meaningful Use Diagnoses (Choose all that apply): None applicable Code Visit OBSV E&M: 85679 Observation care discharge
== END 2018-05-05 11:40 | disposition home or self-care (01) ==
LOC: ED 23:42 → PCU 05-05 00:15
PROVIDERS: Admitting Provider Family Medicine; Emergency Provider Emergency Medicine; Family Provider Internal Medicine; PCP Internal Medicine; Visit Provider Hospitalist
DX: R07.89 Other chest pain (principal); I48.0 Paroxysmal atrial fibrillation; G47.33 Obstructive sleep apnea (adult) (pediatric); E66.9 Obesity, unspecified; I42.8 Other cardiomyopathies; Z68.38 Body mass index [BMI] 38.0-38.9, adult; Z71.3 Dietary counseling and surveillance; I11.0 Hypertensive heart disease with heart failure; I50.9 Heart failure, unspecified; I25.10 Atherosclerotic heart disease of native coronary artery without angina pectoris; Z86.718 Personal history of other venous thrombosis and embolism; Z79.899 Other long term (current) drug therapy; Z79.01 Long term (current) use of anticoagulants; Z79.82 Long term (current) use of aspirin
CPT/HCPCS: 36415; 71045; 78452; 80048; 80053; 80061; 84484; 85025; 85027; 85610; 85730; 93005; 93017; 99218; 99284; A9500; A4216; G0378; J2785

== ENCOUNTER → 2018-06-02 08:16 | Outpatient (CLI) | payer MEDICAID, SELFPAY | PROVIDERS: Family Provider Internal Medicine; PCP Internal Medicine; Visit Provider Otolaryngology Otolaryngology/Facial Plastic Surgery | DX: R13.10 Dysphagia, unspecified (principal); R05 Cough | CPT/HCPCS: 74220 ==

== ENCOUNTER → 2018-07-31 14:36 | Outpatient (CLI) | payer MEDICAID, SELFPAY ==
[2018-07-31 16:37] LABS: AST(SGOT) 55 U/L (15-37); Alanine Aminotransfer ALT/SGPT 40 U/L (16-61); Albumin, Serum 3.1 g/dL (3.2-5.0); Alkaline Phosphatase 157 U/L (45-117); Bilirubin, Direct 0.59 mg/dL (0.00-0.30); Globulin 3.8 g/dL (2.2-4.2); Protein, Total 6.9 g/dL (6.4-8.2); T4 Free Direct 1.69 ng/dL (0.76-1.46); Thyroid Stim Hormone (TSH) 1.49 uIU/mL (0.358-3.74)
== END ==
PROVIDERS: Family Provider Internal Medicine; PCP Internal Medicine; Referring Provider Internal Medicine Cardiovascular Disease; Visit Provider Internal Medicine Cardiovascular Disease
DX: Z79.899 Other long term (current) drug therapy (principal)
CPT/HCPCS: 36415; 80076; 84439; 84443

== ENCOUNTER 2018-08-13 04:42 | Emergency (ER) | payer MEDICAID, SELFPAY ==
[2018-08-13 04:43] VITALS: BP 172/89; PULSE 73; RESP 16; TEMP 36.2; O2SAT 97; BMI 40.4
--- NOTE | 2018-08-13 04:54 | EKG12_ITS ---
Test Reason : GEN ILLNESS Blood Pressure : / mmHG Vent. Rate : 061 BPM Atrial Rate : 061 BPM P-R Int : 184 ms QRS Dur : 104 ms QT Int : 462 ms P-R-T Axes : 011 -02 043 degrees QTc Int : 465 ms Normal sinus rhythm Normal ECG Confirmed by JANIE RONDON ([id number]), rewrite editor JANETH DING ([id number]) on 08/17/2018 2:31:14 PM Referred By: DR SALMON Confirmed By:JANIE RONDON
--- NOTE | 2018-08-13 04:54 | RAD_ITS ---
STUDY: X-RAY CHEST REASON FOR EXAM: Male, 63 years old. Shortness of breath TECHNIQUE: Single frontal view of the chest. COMPARISON: May 04, 2018. FINDINGS: Chronic lung changes. No focal consolidation. No pneumothorax. No pleural effusion. Nonspecific elevation right hemidiaphragm. Cardiomegaly. Normal mediastinum and annamarie. Normal visualized pulmonary arteries. Normal visualized aortic arch and descending thoracic aorta. There are diffuse degenerative changes of the visualized thoracic spine. Normal visualized ribs, clavicles, and shoulders. There is no demonstrated abnormality of the visualized soft tissue structures of the upper abdomen. RAD/Chest 1 View (Portable) IMPRESSION: Cardiomegaly. No acute cardiopulmonary disease. No significant interval change. Electronically Signed: Alfredo Farfan, at 5:35 EST Tel , Service support ,
[2018-08-13 05:02] LABS: Absolute Lymphocyte Count 1.94 X10^3/ul (0.83-4.51); Absolute Neutrophil Count 1.6 X10^3/uL (2.0-7.7); Basophil# 0.02 X10^3/uL; Basophil% 0.5 % (0-1); Eosinophil# 0.17 X10^3/uL; Eosinophils% 3.9 % (0-5); Hematocrit 39.6 % (40-54); Hemoglobin 12.8 g/dl (13.0-16.5); Lymphocyte # 1.94 X10^3/ul (4.0); Mean Corp Hgb Conc 32.3 g/gl (32-36); Mean Corpuscular Hgb 31.1 pg (27.0-32.0); Mean Corpuscular Volume 96.4 fL (80-94); Mean Platelet Vol. 9.9 fl (6.2-12.0); Monocyte# 0.57 X10^3/uL; Monocyte% 13.2 % (0-10); Neutrophil % 37.2 % (47-70); Platelet Count 154 K/mm3 (150-450); RBC Distribution Width CV 14.6 % (11.6-14.6); RBC Distribution Width SD 49.8 fl (35.1-43.9); Red Blood Count 4.11 M/mm3 (4.6-6.2); White Blood Count 4.3 K/mm3 (4.4-11.0)
[2018-08-13 05:04] LABS: POSITIVE COUNT NO; POSITIVE DIFFERENTIAL NO; POSITIVE MORPHOLOGY NO
[2018-08-13 05:43] LABS: ALB/GLOB Ratio 0.7 RATIO (0.9-2.4); AST(SGOT) 64 U/L (15-37); Alanine Aminotransfer ALT/SGPT 41 U/L (16-61); Albumin, Serum 2.7 g/dL (3.2-5.0); Alkaline Phosphatase 234 U/L (45-117); Anion Gap 9 (5-15); BUN 22 mg/dL (7-18); BUN/Creat Ratio 15.8 RATIO (10-20); Calcium,Total 7.6 mg/dL (8.5-10.1); Chloride 108 mmol/L (98-107); Creatinine, Serum 1.39 mg/dL (0.70-1.30); EST Glomerular Filtration Rate 55 mL/min (>60); Est Glom Filt Rate - Afr Amer 67 mL/min (>60); Estimated Creatinine Clearance 63.07 ml/min; Globulin 4.1 g/dL (2.2-4.2); Glucose 102 mg/dL (74-106); Potassium 4.3 mmol/L (3.5-5.1); Protein, Total 6.8 g/dL (6.4-8.2); Sodium Level 142 mmol/L (136-145)
--- NOTE | 2018-08-13 06:03 | ED.VISSUMM ---
- ER Visit Summary Date of Service: 08/13/18 Chief Complaint: Shortness of breath History of Present Illness: The patient is a 63 M who is presenting with shortness of breath for the past few weeks, his main worry is worsening edema in his lower extremities. No fever or chills. No cough or congestion. He tells me he has gained 30 pounds in the last few months. He also has left thumb injury after crush injury which she wants me to check out for him. Physical Examination: Patient walked into the emergency department in no distress, he is sitting in the room quite conversive in no apparent distress Moist mucous membranes, no obvious facial deformity No C-spine tenderness supple neck. Regular rate and rhythm without any obvious murmurs Clear lungs bilaterally speaking in full sentences without any obvious respiratory distress Abdomen soft and nontender no guarding or rebound Moves all extremities without any difficulty he does have significant bilateral lower extremity edema which is symmetric. There is a contusion over the left thumb distally with nail involvement but no subungual hematoma Skin does not show any obvious rashes or lesions, no trauma. Alert oriented ?3 with no gross focal deficit Emergency Department Course and Treatment: Patient does not have any evidence of CHF, this is peripheral edema his PCP had just increased his Lasix yesterday. I reassured him I do believe he likely needs to wear some stockings. He is comfortable oxygenating well. He will be discharged in stable condition His thumb x-ray shows no fracture. Disposition: Discharge stable condition Impression: Bilateral lower extremity edema Finger contusion This note was generated with [employer] dictation software. It may contain incorrect words, spelling, and punctuation that were not noted in review of the chart prior to signing ED Disposition - Plan for ED Patient: Disposition: Home or Assisted Living Chief Complaint: General Illness Instructions: ED Leg Swelling Bilateral Referrals: Ada Maravilla MD [Primary Care Provider] - 3-5 Days
--- NOTE | 2018-08-13 06:05 | RAD_ITS ---
STUDY: X-RAY - LEFT HAND, ATTENTION FIRST FINGER REASON FOR EXAM: Male, 63 years old. Trauma TECHNIQUE: 3 view(s) of the finger were obtained. COMPARISON: None. FINDINGS: There is soft tissue swelling. No radiopaque foreign body. Degenerative changes at the first CMC joint. No acute fracture. No dislocation. RAD/Finger(s) Min 2 Views IMPRESSION: Soft tissue swelling. No acute fracture. Electronically Signed: Alfredo Farfan, at 6:53 EST Tel , Service support ,
--- NOTE | 2018-08-13 06:13 | ED.DEP ---
ED Disposition - Plan for ED Patient: Disposition: Home or Assisted Living Chief Complaint: General Illness Instructions: ED Leg Swelling Bilateral Referrals: Ada Maravilla MD [Primary Care Provider] - 3-5 Days
[2018-08-13 06:36] VITALS: BP 161/99; PULSE 60; RESP 20; O2SAT 95
== END 2018-08-13 06:36 | disposition home or self-care (01) ==
PROVIDERS: Emergency Provider Emergency Medicine; Family Provider Internal Medicine; PCP Internal Medicine
DX: R60.0 Localized edema (principal); S60.112A Contusion of left thumb with damage to nail, initial encounter; I25.10 Atherosclerotic heart disease of native coronary artery without angina pectoris; I11.0 Hypertensive heart disease with heart failure; I50.9 Heart failure, unspecified; G47.33 Obstructive sleep apnea (adult) (pediatric); I48.0 Paroxysmal atrial fibrillation; Z79.82 Long term (current) use of aspirin; Z79.899 Other long term (current) drug therapy; X58.XXXA Exposure to other specified factors, initial encounter; Y93.89 Activity, other specified; Y92.89 Other specified places as the place of occurrence of the external cause; Y99.8 Other external cause status
CPT/HCPCS: 71045; 73140; 80053; 84484; 85025; 93005; 99284

== ENCOUNTER → 2018-08-14 08:11 | Outpatient (CLI) | payer MEDICAID, SELFPAY ==
--- NOTE | 2018-08-14 08:15 | ECHOCS_ITS ---
Reason For Study: AFIB Procedure This was a 2D Doppler, Color Flow transthoracic echocardiogram. The study was technically difficult. Contrast injection was performed. Exam performed in department. Left Ventricle Normal LV size. Mild concentric left ventricular hypertrophy. Left ventricular systolic function is normal. The estimated ejection fraction is 65 %. Transmitral doppler flow suggestive of impaired relaxation of left ventricle. No regional wall motion abnormalities noted. Right Ventricle Normal RV size. Normal systolic function. Atria The left atrium is moderately enlarged. Normal right atrium. No doppler evidence for ASD. Mitral Valve There is no mitral annular calcification. Normal mitral valve. Mild (1+) mitral valve insufficiency. Tricuspid Valve Normal tricuspid valve. Mild tricuspid valve insufficiency. Right ventricular systolic pressure estimated to be 45 mmHg. Aortic Valve Trisinus/trileaflet aortic valve. Mild focal aortic valve calcification. Mild (1+) aortic valve insufficiency. Pulmonic Valve The pulmonic valve is not well visualized. Trivial pulmonic valve insufficiency. Great Vessels Normal sized aortic root. Pericardium/Pleural No pericardial effusion. Medication 22 gauge I.V. with prn adaptor inserted into right arm. Diluted definity 4ml given slow IV push to enhance endocardial definition. MMode/2D Measurements & Calculations LVIDd: 4.7 cm IVSd: 1.4 cm Ao root diam: 3.6 cm LVIDs: 3.3 cm LVPWd: 1.4 cm RVDd: 3.9 cm FS: 29.1 % LAV(MOD-bp): 103.2 ml EDV(MOD-sp4): 164.4 ml EDV(MOD-sp2): 120.3 ml LAV(MOD-bp) Indexed: 41.1 ml/m2 ESV(MOD-sp4): 52.8 ml EF(MOD-sp2): 64.6 % LAV(MOD-sp2): 91.7 ml EF(MOD-sp4): 67.9 % LAV(MOD-sp4): 115.9 ml SV(MOD-sp4): 111.6 ml SV(MOD-sp2): 77.7 ml LA A4 area: 32.8 cm2 LA dimension(2D): 4.8 cm RA A4 area: 16.5 cm2 Time Measurements MV dec time: 0.35 sec Doppler Measurements & Calculations MV E max suleiman: 77.4 cm/sec Lat Peak E' Suleiman: 8.4 cm/sec Med Peak E' Suleiman: 5.4 cm/sec MV A max suleiman: 112.7 cm/sec E/E' lat: 9.2 E/E' med: 14.3 MV E/A: 0.69 AI max suleiman: 344.9 cm/sec LV V1 max: 127.6 cm/sec PA V2 max: 101.5 cm/sec AI max P.6 mmHg LV V1 max P.5 mmHg AI dec slope: 177.1 cm/sec2 AI P1/2t: 570.4 msec TR max suleiman: 325.1 cm/sec TR max P.3 mmHg Interpretation Summary The study was technically difficult. Contrast injection was performed. Left ventricular systolic function is normal. The estimated ejection fraction is 65 %. Mild concentric left ventricular hypertrophy. The left atrium is moderately enlarged. Mild (1+) mitral valve insufficiency. Mild tricuspid valve insufficiency. Mild focal aortic valve calcification. Mild (1+) aortic valve insufficiency. Trivial pulmonic valve insufficiency. Right ventricular systolic pressure estimated to be 45 mmHg. Transmitral doppler flow suggestive of impaired relaxation of left ventricle Ordering Physician: Zach Castillo Referring Physician: BALDEMAR BRINK Performed By: Zuleima Villalpando, RDCS, RVT
[2018-08-14 11:35] LABS: AST(SGOT) 47 U/L (15-37); Alanine Aminotransfer ALT/SGPT 35 U/L (16-61); Albumin, Serum 2.8 g/dL (3.2-5.0); Alkaline Phosphatase 180 U/L (45-117); Anion Gap 8 (5-15); BUN 21 mg/dL (7-18); BUN/Creat Ratio 13.2 RATIO (10-20); Bilirubin, Direct 0.52 mg/dL (0.00-0.30); Chloride 102 mmol/L (98-107); Cholesterol 119 mg/dL (200); Creatinine, Serum 1.59 mg/dL (0.70-1.30); EST Glomerular Filtration Rate 47 mL/min (>60); Est Glom Filt Rate - Afr Amer 57 mL/min (>60); Globulin 4.1 g/dL (2.2-4.2); Glucose 106 mg/dL (74-106); High Density Lipoprotein 39 mg/dL; Potassium 3.6 mmol/L (3.5-5.1); Protein, Total 6.9 g/dL (6.4-8.2); Sodium Level 138 mmol/L (136-145); Triglycerides 99 mg/dL; Very Low Density Lipoprotein 20 mg/dL (5-40)
--- NOTE | 2018-08-16 06:58 | PFT ---
INTRODUCTION: The patient is a 63-year-old male that presents for pulmonary function testing secondary to a diagnosis of high risk medication use. Respiratory therapy reports good patient effort. Bronchodilators were used during testing. INTERPRETATION: Forced expiration spirometry demonstrates no evidence of a large airways obstructive ventilatory defect. There was no significant response to aerosolized bronchodilators. Spirograms are of good quality and do not plateau indicating slow emptying of the lungs. Body plus tomography was performed and reveals a decreased TLC to 5.84 L, 82% of predicted, indicative of a mild restrictive ventilatory defect. The remainder of the lung volumes are symmetrically reduced. Diffusing capacity by single breath CO is moderately reduced at 54% of predicted. IMPRESSION: These pulmonary function studies demonstrate the presence of a mild restrictive ventilatory impairment with an associated moderate reduction in diffusing capacity.
== END ==
PROVIDERS: Nurse Practitioner Family; Family Provider Internal Medicine; PCP Internal Medicine; Referring Provider Internal Medicine Cardiovascular Disease; Visit Provider Internal Medicine Cardiovascular Disease
DX: I25.10 Atherosclerotic heart disease of native coronary artery without angina pectoris (principal); I48.91 Unspecified atrial fibrillation; I48.92 Unspecified atrial flutter; I38 Endocarditis, valve unspecified; I10 Essential (primary) hypertension; I42.8 Other cardiomyopathies; I43 Cardiomyopathy in diseases classified elsewhere; Z79.899 Other long term (current) drug therapy
CPT/HCPCS: 36415; 80048; 80061; 80076; 93306; 94060; 94726; 94729; Q9957; A4216; C8929

== ENCOUNTER → 2018-08-20 16:25 | Outpatient (CLI) | payer MEDICAID, SELFPAY ==
[2018-08-20 16:25] VITALS: BMI 37.7
[2018-08-20 18:05] LABS: Anion Gap 8 (5-15); BUN 27 mg/dL (7-18); BUN/Creat Ratio 14.6 RATIO (10-20); Calcium,Total 8.2 mg/dL (8.5-10.1); Chloride 104 mmol/L (98-107); Creatinine, Serum 1.85 mg/dL (0.70-1.30); EST Glomerular Filtration Rate 40 mL/min (>60); Est Glom Filt Rate - Afr Amer 48 mL/min (>60); Glucose 79 mg/dL (74-106); Potassium 3.8 mmol/L (3.5-5.1); Sodium Level 138 mmol/L (136-145)
== END ==
PROVIDERS: Family Provider Internal Medicine; PCP Internal Medicine; Referring Provider Internal Medicine Cardiovascular Disease; Visit Provider Internal Medicine Cardiovascular Disease
DX: I42.8 Other cardiomyopathies (principal); Z79.899 Other long term (current) drug therapy
CPT/HCPCS: 36415; 80048

== ENCOUNTER → 2018-09-17 16:33 | Outpatient (CLI) | payer MEDICAID, SELFPAY ==
[2018-09-08 06:36] VITALS: BMI 40.1
[2018-09-17 18:42] LABS: AST(SGOT) 40 U/L (15-37); Alanine Aminotransfer ALT/SGPT 30 U/L (16-61); Albumin, Serum 2.9 g/dL (3.2-5.0); Alkaline Phosphatase 167 U/L (45-117); Anion Gap 10 (5-15); BUN 26 mg/dL (7-18); Bilirubin, Direct 0.71 mg/dL (0.00-0.30); Calcium,Total 8.2 mg/dL (8.5-10.1); Chloride 105 mmol/L (98-107); Creatinine, Serum 1.53 mg/dL (0.70-1.30); EST Glomerular Filtration Rate 49 mL/min (>60); Est Glom Filt Rate - Afr Amer 60 mL/min (>60); Globulin 3.9 g/dL (2.2-4.2); Glucose 69 mg/dL (74-106); Potassium 3.7 mmol/L (3.5-5.1); Protein, Total 6.8 g/dL (6.4-8.2); Sodium Level 141 mmol/L (136-145); T4 Total, Thyroxin 15.1 ug/dL (4.5-12.1)
--- OUTSIDE RECORDS SUMMARY | 2018-11-03 14:11 | XMS RPT_ITS ---
:1955 Author Organization OHIP Support Name Relationship Address Phone DEVAUGHN GUTHRIE Unavailable [address] + [place] [address] UE Unavailable Unavailable Unavailable DEVAUGHN GUTHRIE Unavailable [address] + [place] [address] UE Unavailable Unavailable Unavailable DEVAUGHN GUTHRIE Unavailable [address] + [place] [address] UE Unavailable Unavailable Unavailable DEVAUGHN GUTHRIE Unavailable [address] + [place] [address] UE Unavailable Unavailable Unavailable DEVAUGHN GUTHRIE Unavailable [address] + [place] [address] UE Unavailable Unavailable Unavailable DEVAUGHN GUTHRIE Unavailable [address] + [place] [address] UE Unavailable Unavailable Unavailable DEVAUGHN GUTHRIE Unavailable [address] + [place] [address] UE Unavailable Unavailable Unavailable DEVAUGHN GUTHRIE Unavailable [address] + [place] [address] UE Unavailable Unavailable Unavailable DEVAUGHN GUTHRIE Unavailable [address] + [place] [address] UE Unavailable Unavailable Unavailable DEVAUGHN GUTHRIE Unavailable [address] + [place] [address] UE Unavailable Unavailable Unavailable DEVAUGHN GUTHRIE Unavailable [address] + [place] [address] UE Unavailable Unavailable Unavailable DEVAUGHN GUTHRIE Unavailable [address] + [place] [address] UE Unavailable Unavailable Unavailable DEVAUGHN GUTHRIE Unavailable [address] + [facility] [place] [place] [address] UE Unavailable Unavailable Unavailable Devaughn Guthrie Unavailable Unavailable + DEVAUGHN GUTHRIE Unavailable [address] + [facility] [place] [place] [address] UE Unavailable Unavailable Unavailable GENEVA GUTHRIEA Unavailable [address] + [facility] [place] [place] [address] UE Unavailable Unavailable Unavailable [place] Unavailable [address] + [facility] [place] [place] [address] UE Unavailable Unavailable Unavailable [place] Unavailable [address] + [place] [address] UE Unavailable Unavailable Unavailable [place] Unavailable [address] + [place] [address] UE Unavailable Unavailable Unavailable DEVAUGHN GUTHRIE Unavailable [address] + [place] [address] UE Unavailable Unavailable Unavailable DEVAUGHN GUTHRIE Unavailable [address] + [place] [address] UE Unavailable Unavailable Unavailable DEVAUGHN GUTHRIE Unavailable [address] + [place] [address] UE Unavailable Unavailable Unavailable DEVAUGHN GUTHRIE Unavailable [address] + [place] [address] UE Unavailable Unavailable Unavailable DEVAUGHN GUTHRIE Unavailable [address] [phone] [facility] [place] [place] [address] UE Unavailable Unavailable Unavailable DEVAUGHN GUTHRIE Unavailable [address] [phone] [facility] [place] [address] UE Unavailable Unavailable Unavailable DEVAUGHN GUTHRIE Unavailable [address] [phone] [facility] [place] [address] UE Unavailable Unavailable Unavailable GENEVA GUTHRIEA Unavailable . + ., [place] . UE Unavailable Unavailable Unavailable DEVAUGHN GUTHRIE Unavailable [address] [phone] [place] [address] UE Unavailable Unavailable Unavailable GUTH[place]E, [place] Unavailable [address] [phone] [place] [address] UE Unavailable Unavailable Unavailable [place] Unavailable [address] [phone] [place] [address] UE Unavailable Unavailable Unavailable GUTHRIE, [place] Unavailable [address] [phone] [place] [address] UE Unavailable Unavailable Unavailable [place] Unavailable . + ., [place] . UE Unavailable Unavailable Unavailable G[place]available . + ., [place] . UE Unavailable Unavailable Unavailable Care Team Providers Name Role Phone Rosita Swain . Attending Unavailable PROVIDER, UNKNOWN Referring Unavailable UNKNOWN, PROVIDER Primary Care Unavailable CINDY RICHARDSON (PA) Attending Unavailable NNEKA DENSON (ASSISTANT PROPERTY MANAGER) Attending Unavailable UNGJADYN, REMUS A Referring Unavailable NOMAN ALLEN (BEE RAISER) Attending Unavailable ABDULAZIZ HERRERA (PA) Attending Unavailable NNEKA DENSON (ASSISTANT PROPERTY MANAGER) Attending Unavailable NNEKA DENSON (ASSISTANT PROPERTY MANAGER) Attending Unavailable GANTA, BALDEMAR Referring Unavailable NNEKA DENSON (ASSISTANT PROPERTY MANAGER) Referring Unavailable NNEKA DENSON (ASSISTANT PROPERTY MANAGER) Referring Unavailable MAURIZIO MORTENSEN Attending Unavailable MAURIZIO MORTENSEN Referring Unavailable Carlo Heredia Attending Unavailable Carlo Hereida Referring Unavailable Ganta, Baldemar Primary Care Unavailable Zach Castillo Attending Unavailable MoodZach rose Referring Unavailable Ganta, Baldemar Primary Care Unavailable Zach Castillo Attending Unavailable Glenysishernandez Zach Referring Unavailable Ganta, Baldemar Primary Care Unavailable Ganta, Baldemar Primary Care Unavailable Stevie Alberts Attending Unavailable Kieran Diop D.O. Attending Unavailable Carlo Heredia Referring Unavailable Aundrea Mora Attending Unavailable Ganta, Baldemar Referring Unavailable Kieran Diop D.O. Attending Unavailable Kieran Diop D.O. Referring Unavailable Ganta, Baldemar Primary Care Unavailable Aundrea Mora Attending Unavailable Ganta, Baldemar Referring Unavailable Armaan He Attending Unavailable Armaan He Referring Unavailable Ganta, Baldemar Primary Care Unavailable Ganta, Baldemar Primary Care Unavailable Ungur, Remus Attending Unavailable Aundrea Mora Attending Unavailable Ying, Armaan Attending Unavailable Ying, Armaan Referring Unavailable Ganta, Baldemar Primary Care Unavailable Roof, Farhat H Attending Unavailable Ganta, Baldemar Referring Unavailable Roof, Farhat H Attending Unavailable Roof, Farhat H Referring Unavailable Ganta, Baldemar Primary Care Unavailable Moodispaw, Zach Attending Unavailable Moodispaw, Zach Referring Unavailable Ganta, Baldemar Primary Care Unavailable Moodispaw, Zach Attending Unavailable Moodispaw, Zach Referring Unavailable Ganta, Baldemar Primary Care Unavailable Ganta, Baldemar Primary Care Unavailable Morillo, Zach Admitting Unavailable Ashelfah, Ghasem Attending Unavailable Morillo, Zach Attending Unavailable Ganta, Baldemar Primary Care Unavailable Morillo, Zach Admitting Unavailable Ganta, Baldemar Primary Care Unavailable Ashelfah, Ghasem Consulting Unavailable Ashelfah, Ghasem Attending Unavailable Nolt, Tiffanie Attending Unavailable Boyle, Gosia Londono Attending Unavailable Ganta, Baldemar Referring Unavailable Ganta, Baldemar Primary Care Unavailable Kristopher, Markie Attending Unavailable Kristopher, Markie Referring Unavailable Ganta, Baldemar Primary Care Unavailable Moodispaw, Zach Attending Unavailable Moodispaw, Zach Attending Unavailable Morillo, Zach Referring Unavailable Moodispaw, Zach Attending Unavailable Ganta, Baldemar Referring Unavailable Moodispaw, Zach Attending Unavailable Moodispaw, Zach Referring Unavailable Ganta, Baldemar Primary Care Unavailable Ganta, Baldemar Primary Care Unavailable Cornici, Zach Attending Unavailable Moodispaw, Zach Attending Unavailable Moodispaw, Zach Referring Unavailable Ganta, Baldemar Primary Care Unavailable Moodispaw, Zach Attending Unavailable Moodispaw, Zach Referring Unavailable Ganta, Baldemar Primary Care Unavailable Kieran Diop D.O. Attending Unavailable Moodispaw, Zach Referring Unavailable Moodispaw, Zach Attending Unavailable Moodispaw, Zach Referring Unavailable YanCarlo Attending Unavailable Ganta, Baldemar Referring Unavailable PROBLEMS PROBLEMS DATE TYPE CONDITION / CODE ATTENDING STATUS SOURCE 10/21/2018 Active Primary NA Active [facility] osteoarthritis, [facility] Main unspecified ankle and [place] foot / Repository M19.079(ICD-10) 10/13/2018 Unknown G47.33 - Obstructive Mora, Active [facility] sleep apnea (adult) [facility] (pediatric) / Hospital G47.33(ICD-10) Repository 10/01/2018 Active Shortness of breath / NA Active [facility] R06.02(ICD-10) [facility] Main [place] Repository 10/01/2018 Active Encounter for NA Active [facility] therapeutic drug [facility] Main level monitoring / [place] Z51.81(ICD-10) Repository 10/01/2018 Active Other general NA Active [facility] symptoms and signs / Clinic Main R68.89(ICD-10) [place] Repository 10/01/2018 Active Pain in right foot / NA Active [facility] M79.671(ICD-10) Clinic Main [place] Repository 10/08/2018 Unknown R06.02 - Shortness of Kieran Diop, Active [facility] breath / [facility] R06.02(ICD-10) Hospital Repository 09/22/2018 Unknown I42.8 - Other YanCarlo baldwin Active [facility] cardiomyopathies / Community I42.8(ICD-10) Hospital Repository 09/22/2018 Unknown R06.00 - Dyspnea, YanCarlo baldwin Active [facility] unspecified / Community R06.00(ICD-10) Hospital Repository 09/22/2018 Unknown R06.01 - Orthopnea / YanCarlo baldwin Active [facility] R06.01(ICD-10) [facility] 08/24/2018 Unknown I48.91 - Unspecified Kieran Diop, Active [facility] atrial fibrillation / [facility] I48.91(ICD-10) Hospital Repository 09/03/2018 Unknown Z79.899 - Other long Moodispaw, Active [facility] term (current) drug [facility] therapy / Hospital Z79.899(ICD-10) Repository 07/31/2018 Unknown Z86.79 - Personal Moodispaw, Active [place] history of other [facility] diseases of the Hospital circulatory system / Repository Z86.79(ICD-10) 07/21/2018 Admitting Encounter for Rosita Swain . Active [facility] Stripe Diagnosis screening for oth System suspected endocrine Repository disorder / Z13.29(ICD-10) 07/21/2018 Admitting Gastro-esophageal Rosita Swain . Active [facility] Stripe Diagnosis reflux disease System without esophagitis / Repository K21.9(ICD-10) 07/21/2018 Admitting Upper abdominal pain, Rosita Swain . Active [facility] unspecified / System R10.10(ICD-10) Repository 06/12/2018 Unknown R07.9 - Chest pain, Moodispaw, Active [facility] unspecified / [facility] R07.9(ICD-10) Hospital Repository 06/12/2018 Unknown R07.89 - Other chest Moodispaw, Active [facility] pain / R07.89(ICD-10) [facility] Hospital Repository 06/12/2018 Unknown I48.0 - Paroxysmal Moodisp[place], Active [facility] atrial fibrillation / [facility] I48.0(ICD-10) Hospital Repository 06/12/2018 Unknown I11.0 - Hypertensive Moodispaw, Active [place] heart disease with [facility] heart failure / Hospital I11.0(ICD-10) Repository 12/04/2017 Unknown S83.241A - Other tear Armaan He Active [facility] of medial meniscus, [facility] current injury, right Hospital knee, initial Repository encounter / S83.241A(ICD-10) 11/11/2017 Unknown S22.39XA - Fracture Ungur, Remus Active [facility] of one rib, [facility] unspecified side, Hospital initial encounter for Repository closed fracture / S22.39XA(ICD-10) 10/28/2017 Unknown R06.09 - Other forms Kieran Brown, Active [facility] of dyspnea / [facility] R06.09(ICD-10) Hospital Repository 10/31/2017 Unknown I82.409 - Acute Moodispaw, Active [facility] embolism and [facility] thrombosis of Hospital unspecified deep Repository veins of unspecified lower extremity / I82.409(ICD-10) PROCEDURES PROCEDURES No Procedure Records FoundRESULTS RESULTS PROGRESS Observed: 10/21/2018 Status: COMPLETED Source: [place] 10:58 AM [facility] REPOSITORY HNO ID: [id number] Author: Willow Shoemaker (Rt) Service: (none) Author Type: Long Wall Shear Operator Type: Progress Notes Filed: 10/21/2018 10:58 AM Note Text: Radiology Service Progress Note PATIENT NAME: rAmaan Guthrie DATE OF SERVICE: October 21, 2018 TIME: 10:58 AM PATIENT IDENTITY VERIFICATION COMPLETED USING TWO (2) METHODS: Patient confirmed name verbally and Date of . PATIENT GENDER DATA: Male PATIENT RELEVANT IMPLANT DATA REVIEWED: Not Applicable RADIOLOGY DEPARTMENT: General X-ray: Exam(s) Completed: Lower Extremity X-Ray(s): Ankle, Left and Wt. Bearing: PERIPHERAL IV DATA: Not applicable SIGNED BY: RT Sahara October 21, 2018 10:58 AM XR ANKLE 3V AP/LAT/OBL Observed: 10/21/2018 Status: F Source: [facility] 10:57 AM [facility] REPOSITORY * * *Final Report* * * DATE OF EXAM: Oct 21 2018 10:57AM [id number] - XR ANKLE 3V AP/LAT/OBL LT / PROCEDURE REASON: Ankle arthritis * * * * Physician Interpretation * * * * HISTORY: 63-YEAR-OLD MALE WITH Ankle arthritis . pain on the medial side of the left ankle over the proximal tarsal area for 6- 8 months. no injury TECHNIQUE: XR ANKLE 3V AP/LAT/OBL LT Laterality: LEFT Number of different views (projections): 3 COMPARISON: None RESULT: Mild soft tissue swelling at the ankle. There is a talar tilt toward the left with heel valgus. Pes planus. No acute fracture. Subcutaneous edema in the lower extremity. IMPRESSION: PES PLANUS Script Writer: PK Transcribe Date/Time: Oct 22 2018 10:22A Dictated by : DEANNE ABREU MD This examination was interpreted and the report reviewed and electronically signed by: DEANNE ABREU MD on Oct 22 2018 10:25AM EST [id number] PROGRESS Observed: 10/21/2018 Status: COMPLETED Source: [place] 10:14 AM [facility] REPOSITORY HNO ID: [id number] Author: Maurizio Mortensen Service: (none) Author Type: Physician Type: Progress Notes Filed: 10/21/2018 11:05 AM Note Text: Initial Podiatric Office Visit: Chief Complaint: This 63 year old male who presents with chief complaint:right foot wart and left ankle pain HPI Patient presents to clinic with complaint of possible wart to right 5th metatarsal. Patient states that he has had pain to his right 5th metatarsal x 5-6 months. He thought it could have been foreign body so he saw a nurse practioner who xrayed the foot and xrays were normal. He has tried freeze away which did not help. He complains of pain and is here to discuss options for the pain of right 5th metatarsal. Patient also complains of left ankle pain. Patient states the pain in left ankle has been painful x 1 year. Patient denies any injury. Patient is not taking any medication for his pain in ankle. Patient states the pain in ankle is present every day. PAIN EVALUATION 10/21/2018 Pain Score: 8 Pain Location: Foot-Right Description: Burning Duration Amount of Time: 6 Duration Units: Months Frequency: Continuous Intervention: Relaxation Hemoglobin A1C (%) Date Value 11/08/2014 5.6 HBA1C, [facility] (%) Date Value 12/04/2010 5.6 PCP: BALDEMAR BRINK MD PAST MEDICAL HISTORY Diagnosis Date - Arrhythmia - Atrial fibrillation (HCC) - Bilateral edema of lower extremity 04/02/2016 - CHF (congestive heart failure) (HCC) - Detached retina 12/26/20142001 he had a surgery done. - Diverticulosis of colon (without mention of hemorrhage) Diverticulosis. 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 fluticasone (FLONASE) 50 mcg/actuation nasal spray Use 2 Sprays in each nostril once daily. Rinse mouth after use. aspirin, enteric coated (ASPIRIN, ENTERIC COATED) 81 mg EC tablet Take 81 mg by mouth once daily. amiodarone (PACERONE) 200 mg tablet Take by mouth once daily. rivaroxaban (XARELTO) 20 mg tablet Take 20 mg by mouth daily with dinner. pravastatin (PRAVACHOL) 20 mg tablet Take 20 mg by mouth once daily. metoprolol tartrate, short acting, (LOPRESSOR) 100 mg tablet Take 1 tablet by mouth twice daily. amLODIPine (NORVASC) 5 mg tablet Take 1 tablet by mouth once daily. cetirizine (ZYRTEC) 10 mg tablet Take 1 tablet by mouth once daily. sildenafil (VIAGRA) 100 mg tablet Take 1 tablet by mouth as needed. oxybutynin (DITROPAN) 5 mg tablet Take 1 tablet by mouth twice daily. (Patient not taking: Reported on 10/21/2018 ) hydroCHLOROthiazide (HYDRODIURIL, ESIDRIX) 25 mg tablet Take 1 tablet by mouth once daily. (Patient not taking: Reported on 10/21/2018 ) No current facility-administered medications for this visit. ALLERGIES Allergen Reactions - Ceftin [Cefuroxime] Rash - Lisinopril Cough - Penicillins Hives - Vicodin [Hydrocodon* Rash PAST SURGICAL HISTORY Procedure Laterality Date - COLONOSCOP W/ OR W/O BRSH SPEC 10/26/13 Repeat 2023 - COLONOSCOP W/ OR W/O BRSH SPEC 08/11/15 Colonoscopy - COLONOSCOPY 11/27/01 - EGD W/O OR W/BRUSH/WASH 10/21/2014 EGD - HEART SURGERY HX 2014 cardioversion - HEMORRHOID: RUBBERBAND, SINGLE/MULTIPLE 09/2015 - LAP REPAIR INTIAL INGUINAL HERNIA 07/29/13 right - LAP REPAIR INTIAL INGUINAL HERNIA Left 04/06/2015 - PAST SURGICAL HISTORY OF 09/2001 LEFT EAR DK REPLACE BONE - PAST SURGICAL HISTORY OF 11/2001 REPEAT LEFT EAR DK - PAST SURGICAL HISTORY OF teeth pulled - PAST SURGICAL HISTORY OF 2005 detatched retenia right eye and muscle repair. 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 - REPAIR ING HERNIA,5+Y/O,REDUCIBL 1989 LEFT - VASECTOMY FAMILY HISTORY Problem Relation Age of Onset - Coronary Artery Disease Mother CABG - other (anemia) Mother - Cancer Father LUNG - Emphysema Father - other (IBS) Father - other (bipolar) Sister - Diabetes Daughter - Stroke No Family History - Heart Daughter myocarditis - other (Encephalocele) Daughter Social History Marital status: Spouse name: Years of education: Number of children: 2 Occupational History 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 1 adopted daughter. He enjoys working with tools. REVIEW OF SYSTEMS GENERAL: Negative for Malaise, significant weight loss, fever RESPIRATORY: Negative for cough, wheezing and shortness of breath CARDIOVASCULAR: Negative for chest pain, leg swelling and palpitations GI: Negative for abdominal discomfort, blood in stools or black stools and change in bowel habits : Negative for dysuria, frequency and incontinence MUSCULOSKELETAL: Positive left ankle pain SKIN: possible wart right foot HEMATOLOGY/LYMPHOLOGY Negative for prolonged bleeding, bruising easily, and swollen nodes. ENDOCRINE: Negative for cold or heat intolerance, polyuria, polydipsia and goiter. NEURO: negative Physical Exam: Constitutional: Pt is a well developed 63 year old male who is alert, oriented and cooperative Eyes: Following during examination. No redness or drainage. Respiratory: RR normal and nonlabored. Even breathing. No evidence of distress or shortness of breath. Psychology: Patient is engaged during conversation. Normal affect and mood. Does not appear depressed or anxious during encounter. Vascular: Dorsalis pedis and posterior tibial pulses palpable as b/l Capillary Fill time < 5 seconds to digits 1-5 b/l Skin temperature warm to warm proximal to distal b/l Hair growth present to digits Neurological: intact light touch/epicritic sensation Vibratory sensation decreased b/l decreased protective sensation + significant neurological deficits Dermatological: Nails 1-5 b/l appear normal. Webspaces clean and dry 1-4 b/l. Skin appears well hydrated and supple. good color, texture, turgor. No open lesions present. Porokeratosis present to right 5th metatarsal. No bleeding or diverging skin lines upon debridement Musculoskeletal/Orthopaedic: Patient has pain to palpation of left medial ankle Foot type is pronated structurally AJ ROM is decreased with knee extended and flexed 1st MPJ is full when loaded and no pain or crepitus are noted with ROM. MTJ, STJ are full and free of pain and crepitus. +5/5 muscle strength dorsiflexion, plantarflexion, inversion, eversion b/l Radiographs: 3 views right foot ordered October 21, 2018: I have personally reviewed and interpreted these XR myself: No acute fracture. Pes planus is noted. ASSESSMENT: (Q82.8) Porokeratosis (primary encounter diagnosis) (M19.079) Ankle arthritis PLAN: 1. History and physical examination performed. 2. XR reviewed with patient and interpreted today 3. Discussed painful skin lesion of right foot. On exam and upon debridement, there is nucleated core resembling porokeratosis. This was debrided today with 15 blade. tca applied under occlusion. May require subsequent debridement. Will have him apply lotion to feet. Will provide him with powersteps and he can apply padding to further offload. 4. Discussed left ankle pain. He has flat foot. Will get xrays. powersteps dispensed. If pain persists, custom orthotics or even injection may be an option 5. F/u in 1 month Maurizio Mortensen DPM CNOV Observed: 10/21/2018 Status: COMPLETED Source: [place] 9:55 AM [facility] REPOSITORY Office Visit (PODIWS) ARMAAN GUTHRIE ([id number]) 1955 M [facility] Date Time Provider Department 10/21/18 9:55 AM MAURIZIO MORTENSEN PODIWElkin During your visit today, we recorded the following information about you: Eli Jones Ma 10/21/2018 11:05 AM Signed AMB ROOMING INTAKE FLOWSHEET DATA Pain Pain Score: 8/10 Pain Location: Foot-Right Description: Burning Duration Amount of Time: 6 Duration Units: Months Frequency: Continuous Intervention: Relaxation Patient here for plantars wart on R foot. States his pain is 8/10. Slight redness around site. Complains his L ankle is also painful. Maurizio Mortensen DPM 10/21/2018 11:05 AM Signed Initial Podiatric Office Visit: Chief Complaint: This 63 year old male who presents with chief complaint:right foot wart and left ankle pain HPI Patient presents to clinic with complaint of possible wart to right 5th metatarsal. Patient states that he has had pain to his right 5th metatarsal x 5-6 months. He thought it could have been foreign body so he saw a nurse practioner who xrayed the foot and xrays were normal. He has tried freeze away which did not help. He complains of pain and is here to discuss options for the pain of right 5th metatarsal. Patient also complains of left ankle pain. Patient states the pain in left ankle has been painful x 1 year. Patient denies any injury. Patient is not taking any medication for his pain in ankle. Patient states the pain in ankle is present every day. PAIN EVALUATION 10/21/2018 Pain Score: 8 Pain Location: Foot-Right Description: Burning Duration Amount of Time: 6 Duration Units: Months Frequency: Continuous Intervention: Relaxation Hemoglobin A1C (%) Date Value 11/08/2014 5.6 HBA1C, [place] (%) Date Value 12/04/2010 5.6 PCP: BALDEMAR BRINK MD PAST MEDICAL HISTORY Diagnosis Date - Arrhythmia - Atrial fibrillation ([facility]) - Bilateral edema of lower extremity 04/02/2016 - CHF (congestive heart failure) ([facility]) - Detached retina 12/26/20142001 he had a surgery done. - Diverticulosis of colon (without mention of hemorrhage) Diverticulosis. 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 fluticasone (FLONASE) 50 mcg/actuation nasal spray Use 2 Sprays in each nostril once daily. Rinse mouth after use. aspirin, enteric coated (ASPIRIN, ENTERIC COATED) 81 mg EC tablet Take 81 mg by mouth once daily. amiodarone (PACERONE) 200 mg tablet Take by mouth once daily. rivaroxaban (XARELTO) 20 mg tablet Take 20 mg by mouth daily with dinner. pravastatin (PRAVACHOL) 20 mg tablet Take 20 mg by mouth once daily. metoprolol tartrate, short acting, (LOPRESSOR) 100 mg tablet Take 1 tablet by mouth twice daily. amLODIPine (NORVASC) 5 mg tablet Take 1 tablet by mouth once daily. cetirizine (ZYRTEC) 10 mg tablet Take 1 tablet by mouth once daily. sildenafil (VIAGRA) 100 mg tablet Take 1 tablet by mouth as needed. oxybutynin (DITROPAN) 5 mg tablet Take 1 tablet by mouth twice daily. (Patient not taking: Reported on 10/21/2018 ) hydroCHLOROthiazide (HYDRODIURIL, ESIDRIX) 25 mg tablet Take 1 tablet by mouth once daily. (Patient not taking: Reported on 10/21/2018 ) No current facility-administered medications for this visit. ALLERGIES Allergen Reactions - Ceftin [Cefuroxime] Rash - Lisinopril Cough - Penicillins Hives - Vicodin [Hydrocodon* Rash PAST SURGICAL HISTORY Procedure Laterality Date - COLONOSCOP W/ OR W/O [facility] SPEC 10/26/13 Repeat 2023 - COLONOSCOP W/ OR W/O [facility] SPEC 08/11/15 Colonoscopy - COLONOSCOPY 11/27/01 - EGD W/O OR W/BRUSH/WASH 10/21/2014 EGD - HEART SURGERY HX 2014 cardioversion - HEMORRHOID: RUBBERBAND, SINGLE/MULTIPLE 09/2015 - LAP REPAIR INTIAL INGUINAL HERNIA 07/29/13 right - LAP REPAIR INTIAL INGUINAL HERNIA Left 04/06/2015 - PAST SURGICAL HISTORY OF 09/2001 LEFT EAR DK REPLACE BONE - PAST SURGICAL HISTORY OF 11/2001 REPEAT LEFT EAR DK - PAST SURGICAL HISTORY OF teeth pulled - PAST SURGICAL HISTORY OF 2005 detatched retenia right eye and muscle repair. 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 - REPAIR ING HERNIA,5+Y/O,REDUCIBL 1989 LEFT - VASECTOMY FAMILY HISTORY Problem Relation Age of Onset - Coronary Artery Disease Mother CABG - other (anemia) Mother - Cancer Father LUNG - Emphysema Father - other (IBS) Father - other (bipolar) Sister - Diabetes Daughter - Stroke No Family History - Heart Daughter myocarditis - other (Encephalocele) Daughter Social History Marital status: Spouse name: Years of education: Number of children: 2 Occupational History 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 1 adopted daughter. He enjoys working with tools. REVIEW OF SYSTEMS GENERAL: Negative for Malaise, significant weight loss, fever RESPIRATORY: Negative for cough, wheezing and shortness of breath CARDIOVASCULAR: Negative for chest pain, leg swelling and palpitations GI: Negative for abdominal discomfort, blood in stools or black stools and change in bowel habits : Negative for dysuria, frequency and incontinence MUSCULOSKELETAL: Positive left ankle pain SKIN: possible wart right foot HEMATOLOGY/LYMPHOLOGY Negative for prolonged bleeding, bruising easily, and swollen nodes. ENDOCRINE: Negative for cold or heat intolerance, polyuria, polydipsia and goiter. NEURO: negative Physical Exam: Constitutional: Pt is a well developed 63 year old male who is alert, oriented and cooperative Eyes: Following during examination. No redness or drainage. Respiratory: RR normal and nonlabored. Even breathing. No evidence of distress or shortness of breath. Psychology: Patient is engaged during conversation. Normal affect and mood. Does not appear depressed or anxious during encounter. Vascular: Dorsalis pedis and posterior tibial pulses palpable as b/l Capillary Fill time < 5 seconds to digits 1-5 b/l Skin temperature warm to warm proximal to distal b/l Hair growth present to digits Neurological: intact light touch/epicritic sensation Vibratory sensation decreased b/l decreased protective sensation + significant neurological deficits Dermatological: Nails 1-5 b/l appear normal. Webspaces clean and dry 1-4 b/l. Skin appears well hydrated and supple. good color, texture, turgor. No open lesions present. Porokeratosis present to right 5th metatarsal. No bleeding or diverging skin lines upon debridement Musculoskeletal/Orthopaedic: Patient has pain to palpation of left medial ankle Foot type is pronated structurally AJ ROM is decreased with knee extended and flexed 1st MPJ is full when loaded and no pain or crepitus are noted with ROM. MTJ, STJ are full and free of pain and crepitus. +5/5 muscle strength dorsiflexion, plantarflexion, inversion, eversion b/l Radiographs: 3 views right foot ordered October 21, 2018: I have personally reviewed and interpreted these XR myself: No acute fracture. Pes planus is noted. ASSESSMENT: (Q82.8) Porokeratosis (primary encounter diagnosis) (M19.079) Ankle arthritis PLAN: 1. History and physical examination performed. 2. XR reviewed with patient and interpreted today 3. Discussed painful skin lesion of right foot. On exam and upon debridement, there is nucleated core resembling porokeratosis. This was debrided today with 15 blade. tca applied under occlusion. May require subsequent debridement. Will have him apply lotion to feet. Will provide him with powersteps and he can apply padding to further offload. 4. Discussed left ankle pain. He has flat foot. Will get xrays. powersteps dispensed. If pain persists, custom orthotics or even injection may be an option 5. F/u in 1 month JUANITA Huffman Ma 10/21/2018 10:30 AM Signed Trichloroacetic acid (TCA) has been applied to the plantar warts. Rinse off in 12 hours and keep clean and dry. May bathe and shower normally starting the day after treatment The area is expected to burn and blister in about 1-3 days, if painful soak in plain, cool water. If blistered, you may drain the blister with a clean, STERILIZED needle and apply OTC antibiotic ointment and band aid to area. Repeat 2-3 times daily as needed. Tylenol or Aleve as needed for pain, provided you have no allergies to either of these. Keep scheduled follow up appointment to have wart(s) re-evaluated and/or additional treatments. Referring Provider: SELF [[id number]] Allergies As of Date: 10/21/2018 Noted Allergy Reaction CEFTIN (CEFUROXIME) 07/01/2005 2 - Rash LISINOPRIL 11/02/2013 3 - Cough PENICILLINS 07/01/2005 4 - Hives VICODIN (HYDROCODONE-ACETAMINOPHE*07/01/2005 2 - Rash Date Reviewed: 10/21/2018 Reviewed by: Eli Jones Ma - Fully Assessed Reason for Visit: New Patient [[id number]] Primary Visit Diagnosis:Porokeratosis [Q82.8] Other Visit Diagnosis:Ankle arthritis [M19.079] Order(s):XR ANKLE GENERAL 3V AP/LAT/OBL LT [[id number]] Order #: [id number] FUTURE Prescriptions as of 10/21/2018 Sig: FUROSEMIDE 40 MG TABLET every day OMEPRAZOLE 40 MG CAPSULE,KIAH* Take 1 capsule by mouth once * FLUTICASONE 50 MCG/ACTUATION * Use 2 Sprays in each nostril * ASPIRIN 81 MG TABLET,DELAYED * Take 81 mg by mouth once asad* AMIODARONE 200 MG TABLET Take by mouth once daily. RIVAROXABAN 20 MG TABLET Take 20 mg by mouth daily wit* PRAVASTATIN 20 MG TABLET Take 20 mg by mouth once asad* METOPROLOL TARTRATE 100 MG TA* Take 1 tablet by mouth twice * AMLODIPINE 5 MG TABLET Take 1 tablet by mouth once d* CETIRIZINE 10 MG TABLET Take 1 tablet by mouth once d* SILDENAFIL 100 MG TABLET Take 1 tablet by mouth as nee* OXYBUTYNIN CHLORIDE 5 MG TABL* Take 1 tablet by mouth twice * Patient not taking: Reported on 10/21/2018 HYDROCHLOROTHIAZIDE 25 MG TAB* Take 1 tablet by mouth once d* Patient not taking: Reported on 10/21/2018 Problem List As Of Date 10/21/2018 Noted Resolved Essential hypertension, benign [I10] INVALID FOR* More... More... 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 More... Headache(784.0) [R51] 03/24/2014 More... Atrial fibrillation (HCC) [I48.91] INVALID FOR*10/02/2015 More... [I50.9] INVALID FOR* More... More... More... Abdominal pain, unspecified site [R10.9] INVALID FOR*10/26/2014 More... More... Hepatitis B [B19.10] INVALID FOR* More... More... Rectal bleeding [K62.5] INVALID FOR*08/11/2015 ZAID (obstructive sleep apnea) [G47.33] INVALID FOR* Vertigo [R42] INVALID FOR*11/21/2015 Stroke (HCC) [I63.9] INVALID FOR* Tremor [R25.1] INVALID FOR* Constitutional obesity [E66.8] INVALID FOR* Paroxysmal atrial fibrillation (HCC) [I48.0] INVALID FOR* More... More... Cirrhosis of liver without ascites (HCC) [K74.6*INVALID FOR* More... LGI bleed [K92.2] INVALID FOR* Obesity (BMI 35.0-39.9 without comorbidity) [E6*INVALID FOR* Pulmonary hypertension, secondary (HCC) [KBR480*INVALID FOR* Varicose vein of leg [I83.90] INVALID FOR* More... Other instructions from your clinician: Trichloroacetic acid (TCA) has been applied to the plantar warts. Rinse off in 12 hours and keep clean and dry. May bathe and shower normally starting the day after treatment The area is expected to burn and blister in about 1-3 days, if painful soak in plain, cool water. If blistered, you may drain the blister with a clean, STERILIZED needle and apply OTC antibiotic ointment and band aid to area. Repeat 2-3 times daily as needed. Tylenol or Aleve as needed for pain, provided you have no allergies to either of these. Keep scheduled follow up appointment to have wart(s) re- evaluated and/or additional treatments. Disposition: Return in about 4 weeks (around 11/18/2018) for ankle arthritis. Follow-up and Disposition History Recorded Encounter Status:Closed by MAURIZIO MORTENSEN DPM on 10/21/18 PROGRESS Observed: 10/21/2018 Status: COMPLETED Source: [place] 9:49 AM [facility] REPOSITORY O ID: [id number] Author: Eli Jones Ma Service: (none) Author Type: (none) Type: Progress Notes Filed: 10/21/2018 11:05 AM Note Text: AMB ROOMING INTAKE FLOWSHEET DATA Pain Pain Score: 8/10 Pain Location: Foot-Right Description: Burning Duration Amount of Time: 6 Duration Units: Months Frequency: Continuous Intervention: Relaxation Patient here for plantars wart on R foot. States his pain is 8/10. Slight redness around site. Complains his L ankle is also painful. PULMONARY VISIT REPORT Observed: 10/13/2018 Status: F Source: [place] 8:28 AM [facility] [place] [facility] [address] [place] [address] OFFICE VISIT Date of Service: 10/13/18 MR#: [id number] Acct: [id number] Name: ARMAAN GUTHRIE Rep #: [id number] : 1955 Provider: Aundrea Mora Age/Sex: 63/M Location: [facility] Status: Signed Assessment AND Plan 1. GOMEZ (dyspnea on exertion) R06.09 Plan Improving. Continue congestive heart failure management by cardiology. Recent pulmonary stress test determined that the patient does not require supplemental oxygen with ambulation at this time, we will continue to monitor. Follow-up with Dr. Diop in 3 months. 2. PAF (paroxysmal atrial fibrillation) I48.0 Plan Complicates exam, plan, care and prognosis. Currently in regular rhythm. 3. Obesity (BMI 30-39.9) E66.9 Plan Encourage weight loss. 4. ZAID (obstructive sleep apnea) G47.33 Plan Sending for a titration study to determine if the patient is on the appropriate pressure support therapy. Lengthy discussion about the pathophysiology of obstructive sleep apnea and its impact on his atrial fibrillation and congestive heart failure. Patient conveys understanding and seems motivated to become compliant with therapy. I will Dr. Diop in 3 months. Orders Orders: Plan Detail Follow Up 3 Months (DMB) HPI ER F/U: Chief Complaint: Shortness of breath HPI Comments Details: This patient presents the office in follow-up on his obstructive sleep apnea. He is ambulatory and currently in room air. He is recently seen in the emergency department on September 19, 2018 and treated for congestive heart failure. He follows with cardiology regarding paroxysmal atrial fibrillation and CHF. I have placed him on Lasix 60 mg twice daily. He is down 16 pounds since that ER visit on September 19. He reports that he tries to wear the CPAP but has some difficulty, which she is unable to describe or pinpoint why he is noncompliant. He is experiencing shortness of breath on exertion but reports that it has improved since the weight loss. He denies any cough, sputum production or hemoptysis. Denies any wheezing, chest tightness, chest pain or palpitations. He is not experience any fever, chills or body aches. He does continue to experience lower extremity edema. He has not added any [id number] medications. He is not currently on any inhalers. See complete review of systems. Pulmonary stress test completed on September 22, 2018 the patient does not require supple oxygen with ambulation at this time, he was able to ambulate a total of 1062 feet over the course of 6 minutes. Compliance report for the past 30 days has been reviewed and shows 3% compliance with an average of 2 hours and 50 minutes. Current settings are 9- 13 cm of water. AHI is controlled at an average of 0.3 events per hour and leaks do not appear to be an issue. Intake Vital Signs10/13/18 Body Mass Index (BMI) 40.7 10/13/18 Height 6 ft 10/13/18 Weight: 292 lb Intake Visit Reasons: ER F/U Chief Complaint: Shortness of breath Bank Officer Required: No Accompanied by: Self Allergies cefuroxime axetil [From Ceftin] Allergy (Verified 10/13/18 07:39) Rash hydrocodone bitartrate [From Vicodin] Allergy (Verified 10/13/18 07:39) Rash Penicillins Allergy (Verified 10/13/18 07:39) Hives carvedilol [From Coreg] Adverse Reaction (Verified 10/13/18 07:39) Other lisinopril Adverse Reaction (Verified 10/13/18 07:39) Other Medications Acetaminophen [Tylenol] 500 - 1,000 mg PO Q6H PRN PRN 11/19/17 [History Confirmed 10/13/18] pravastatin 20 mg tablet 20 mg PO QHS #30 tab 04/03/18 [Rx Confirmed 10/13/18] Sildenafil Citrate [Viagra] 100 mg PO PRN PRN 05/05/18 [History Confirmed 10/13/18] nitroglycerin 0.4 mg sublingual tablet 0.4 mg SUBLINGUAL Q5- 15M PRN #25 tab 05/08/18 [Rx Confirmed 10/13/18] amlodipine 10 mg tablet 10 mg PO DAILY #90 tab 07/31/18 [Rx Confirmed 10/13/18] Omeprazole 40 mg PO DAILY 08/13/18 [History Confirmed 10/13/18] tramadol 50 mg tablet 50 mg PO Q6H PRN 09/08/18 [History Confirmed 10/13/18] furosemide 40 mg tablet 40 mg PO .COMPLEX #0 tab 10/07/18 [Rx Confirmed 10/13/18] amiodarone 100 mg tablet 100 mg PO DAILY #30 tab 10/12/18 [Rx Confirmed 10/13/18] aspirin 81 mg tablet,delayed release 81 mg PO QDAY #30 tab 10/12/18 [Rx Confirmed 10/13/18] metoprolol tartrate 100 mg tablet 100 mg PO BID #60 tab 10/12/18 [Rx Confirmed 10/13/18] [facility] Medical History Essential hypertension (Chronic) History of congestive heart failure (Chronic) History of cardiomyopathy (Chronic) History of atrial fibrillation (Chronic) History of cardioversion (Resolved 08/2017) History of echocardiogram (Resolved 08/2017) History of echocardiogram (Acute 01/2013) Erectile dysfunction (Chronic) Obesity (BMI 30-39.9) (Chronic) ZAID (obstructive sleep apnea) (Chronic) DVT (deep venous thrombosis) (Chronic) Renal insufficiency (Acute) Surgical History H/O cardiac catheterization (Resolved 06/2009) History of detached retina repair (Resolved) History of left inguinal hernia repair (Resolved) Family History Mother , CABG @ 50yrs, age 61 CAD (coronary artery disease) Social History Smoking Status: Never smoker alcohol intake: never substance use type: does not use caffeine: No what type of physical activity do you participate in: other details: PT frequency: 3-4 times per week duration: 15-30 minutes/day seatbelt use: always do you feel safe at home: Yes Review of Systems Const CONSTITUTIONAL: Positive fatigue; negative anorexia, body ache, chills, daytime sleepiness, fever(s), night sweats, oral thrush, stops breathing during sleep, weight loss, sleeping in chair, weight loss, weight gain, frequent colds, seasonal allergies, other, headache(s) or orthopnea EETM Ear Nose Throat Mouth: Positive hearing normal and post nasal drip; negative hard of hearing, hoarseness, dry mouth in morning, change in vision, itchy eyes, eye pain, swallowing Difficulty, ear pain, nose bleed, headache(s), mouth pain, nasal congestion, nasal discharge, sinus pain, sinus pressure, sore throat or other Cardio Cardiovascular: Positive edema Location: lower extremity; negative chest pain, chest pain at rest, chest pain with activity, irregular heart rhythm, shortness of breath when lying down, palpitations, murmur or other Resp Respiratory: Positive as per HPI, shortness of breath shortness of breath: Positive with activity and cough cough: Positive non-productive; negative pain with cough, wheezing, chest congestion, chest tightness, pain on inspiration, inhalers, increase use of rescue inhalers, snoring, apnea or other Gastro Gastrointestional: Negative bloody stools, change in appetite, difficulty swallowing, reflux, hematemesis, melena stool, loose stool, constipation or other Genitourinary: Negative blood in urine, nocturia, pain with urination or other Musc Musculoskeletal: Negative body pain, back pain, neck pain or other Skin/Breast Skin/Breast: Negative dry skin, itching, rash, unusual bruising, breast lump or other Neuro Neurological: Negative restless legs, confusion, weakness or other Psych Psychocological: Negative abnormal sleep pattern, anxiety, thoughts of hurting self/others, hopelessness or other Lymph Lymphatic: Negative easy bleeding, easy bruising, swollen lymph nodes or other Exam Const Constitutional: Positive conversant, cooperative, in no acute respiratory distress, healthy appearing, well developed, well nourished, good hygiene and obese Head Head: Positive normocephalic and atraumatic; negative cyanosis of lips/distal nose Eyes Eye: Positive clear conjunctiva; negative nystagmus or scleral abnormality Ears Ear: Positive hearing normal and external ears normal; negative hard of hearing Nose Nose: Positive external nose normal and no nasal discharge; negative epistaxis Mouth Mouth: Positive post nasal drip, oral mucosae normal, no lesions and crowded posterior oropharynx; negative malodorous breath or oral thrush present Mallampati Score: III: Mallampati Score Neck Neck: Positive normal visual inspection, full ROM, thick neck, male neck greater than 43 cm (17 in) and trachea midline; negative lymphadenopathy, JVD or tender Chest Wall Chest: Positive normal inspection of the chest and symmetric chest movement; negative increased A/P diameter Resp lung sounds: Positive clear to auscultation, good air exchange, normal expiratory time and normal respiratory effort; negative diminished, wheezes, rhonchi, rales, dullness to percussion or wheeze present on forced exhalation Cardio Cardiac: Positive regular rate, regular rhythm, S1 normal and S2 normal; negative murmur GI GI: Positive normal to inspection and obese; negative distended Genitourinary: Positive deferred Musc Musculoskeletal: Positive steady gait and ROM normal; negative kyphosis or scoliosis Skin Pulmonary Skin Exam: Positive intact; negative rash Pulses Pulse: Yes pulses normal x4 extremities Extremities Extremities: Yes capillary refill normal, No clubbing, No cyanosis, Yes edema Location: lower extremity location: Bilateral pitting +3 Neuro Neurologic: Yes conversant, Yes no focal neuro deficits, No normal concentration, Yes understands questions, Yes cooperative, Yes normal coordination, No tremor Lymph Lymphatic: No lymphadenopathy, No tenderness Psych Appearance: Positive grossly normal and eye contact Mental Status: Positive mental status grossly normal Mood: Positive anxious mood Coding Level of Care Code Off vis,est,level 3 Diagnoses GOMEZ (dyspnea on exertion) R06.09 PAF (paroxysmal atrial fibrillation) I48.0 Obesity (BMI 30-39.9) E66.9 ZAID (obstructive sleep apnea) G47.33 10/13/18 0828 <Electronically signed by Aundrea JONES> Date Aundrea JONES Cosigner Signature: Date (if applicable) CC: Baldemar Brink MD BASIC METABOLIC PANL Collected: 10/01/2018 Status: F Source: [place] 5:04 PM [facility] REPOSITORY TYPE CODE TESTS RESULT OUT OF REFERENCE UNITS RANGE LAB GLU 74-99 mg/dL Glucose 94 Result Comment: The [place] [employer] (ADA) provides guidance for cutoff values for fasting glucose and random glucose. The ADA defines fasting as no caloric intake for at least 8 hours. Fas ting plasma glucose results between 100 to 125 mg/dL indicate increased risk for diabetes (prediabetes). Fasting plasma glucose results greater than or equal to 126 mg/dL meet the criteria for diagnosis of diabetes. In the absence of unequivocal hyperglycemia, results should be confirmed by repeat testing. In a patient with classic symptoms of hyperglycemia or hyperglycemic crisis, random plasma glucose results greater than or equal to 200 mg/dL meet the criteria for diagnosis of diabetes. Reference: Standards of Medical Care in Diabetes 2016, [place] [employer]. Diabetes Care. 2016.39(Suppl 1). LAB BUN 9-24 mg/dL BUN High 25 LAB CRET 0.73-1.22 mg/dL Creatinine High 1.58 LAB NA 136-144 mmol/L Sodium 140 LAB K 3.7-5.1 mmol/L Potassium 3.9 LAB CL 97-105 mmol/L Chloride 101 LAB CO2 22-30 mmol/L CO2 27 LAB AGAP 9-18 mmol/L Anion Gap 12 LAB CA 8.5-10.2 mg/dL Calcium, Total 8.6 LAB GFRAA eGFR- Amer. 54 LAB GFRNAA . eGFR-All Other Races 45 Result Comment: eGFR (Estimated GFR) Units of measure: mL/min/1.73 meters squared eGFR is derived from the reexpressed MDRD Study equation using the following parameters: serum creatinine, age, gender and race. The creatinine assay has been calibrated to be traceable to IDMS. An eGFR <60 mL/min/1.73m2 for >3 months is consistent with chronic kidney disease. Refer to KDOQI guidelines for clinical interpretation. In patients with unstable renal function, e.g. those with acute kidney injury, the eGFR may not accurately reflect actual GFR. Performed By: #### BMP, NTBNP, TSH #### [facility] [address] [place], [place] [address] NT PRO BNP Collected: 10/01/2018 Status: F Source: [place] 5:04 PM [facility] REPOSITORY TYPE CODE TESTS RESULT OUT OF REFERENCE UNITS RANGE LAB PBNP <125 pg/mL High PRO B Natr 1488 Peptide Performed By: #### BMP, NTBNP, TSH #### [facility] [address] [place], [place] [address] TSH Collected: 10/01/2018 Status: F Source: [place] 5:04 PM [facility] [place] REPOSITORY TYPE CODE TESTS RESULT OUT OF RANGE REFERENCE UNITS LAB TSH 0.400-5.500 uU/mL TSH 1.850 Performed By: #### BMP, NTBNP, TSH #### [facility] [address] [place], [place] [address] XR FOOT 3V AP/LAT/OBL Observed: 10/01/2018 Status: F Source: [place] RT 4:53 PM [facility] REPOSITORY * * *Final Report* * * DATE OF EXAM: Oct 01 2018 4:53PM WOX [id number] - XR FOOT 3V AP/LAT/OBL RT / PROCEDURE REASON: Right foot pain * * * * Physician Interpretation * * * * HISTORY: 63-YEAR-OLD MALE WITH Right foot pain . pain right plantar base distal of 5th metatarsal marked with a arrow. TECHNIQUE: XR FOOT 3V AP/LAT/OBL RT Laterality: RIGHT Number of different views (projections): 3 COMPARISON: None RESULT: Minimal osteophyte formation at the second tarsometatarsal joint. Small amount of periosteal thickening along the lateral cuboid and calcaneus at the calcaneocuboid articulation consistent with remote ligament injury. Small os navicularis is present. Mild pes planus. Calcaneal enthesophyte insertion of the plantar fascia. If nonradiopaque foreign body is clinically suspected ultrasound can be utilized for further evaluation. No radiopaque foreign body. IMPRESSION: NO RADIOPAQUE FOREIGN BODY. Script Writer: PSCB Transcribe Date/Time: Oct 02 2018 2:15P Dictated by : DEANNE ABREU MD This examination was interpreted and the report reviewed and electronically signed by: DEANNE ABREU MD on Oct 02 2018 2:21PM EST [id number] PROGRESS Observed: 10/01/2018 Status: COMPLETED Source: [place] 4:38 PM [facility] [place] REPOSITORY HNO ID: [id number] Author: Mayelin Saucedo Rt Service: (none) Author Type: (none) Type: Progress Notes Filed: 10/01/2018 4:53 PM Note Text: Radiology Service Progress Note PATIENT NAME: Armaan Guthrie DATE OF SERVICE: October 01, 2018 TIME: 4:39 PM PATIENT IDENTITY VERIFICATION COMPLETED USING TWO (2) METHODS: Patient confirmed name verbally and Date of . PATIENT GENDER DATA: Male PATIENT RELEVANT IMPLANT DATA REVIEWED: Not Applicable RADIOLOGY DEPARTMENT: General X-ray: Exam(s) Completed: Lower Extremity X-Ray(s): Foot, Right and Wt. Bearing: PERIPHERAL IV DATA: Not applicable SIGNED BY: Mayelin Reeves October 01, 2018 4:39 PM PROGRESS Observed: 10/01/2018 Status: COMPLETED Source: [place] 3:36 PM [facility] [place] REPOSITORY O ID: [id number] Author: Nneka Denson Service: (none) Author Type: Nurse Practitioner Type: Progress Notes Filed: 10/02/2018 12:31 PM Note Text: CC: Patient presents with: Edema HPI Armaan Guthrie is a 63 year old male who presents today for complaints of fluid retention/weight gain, SOB on exertion and pain of the right foot. Patient presented alone but came with a handwritten note from his indicating patient had been in the ER several times the last few months, follow with and Dr. Heredia who encourage him to get rid of the excess fluid. The letter indicates he has been on Lasix 40mg BID but she had him increase to 60mg the last few days. She also notes weight gain and more difficulty with dressing himself. Patient is a rather poor historian and unaware of medications or doses, although he notes he stopped taking his Xarelto d/t bruising. Per patient he states he was last seen at [facility] ER ~2 weeks ago for SOB. He indicates weight was around 309 at this time and is down ~13lbs per scale today. Noted ~30lb weight gain over the last 1.5 years. Records not available at this time for review. He believes labs and CXR were completed, but told these were normal. Follows with , Pulmonology- last visit 3-4 weeks ago? States he was told to wear his Cpap as he has been non-compliant. Does not recall last visit with cardiology, appears last medication refill from cardiology around 07/2018? Today he complains of SOB with exertion, weight gain and improving BLE edema after wearing compression stocking the past week. He denies any fever, chills, chest pain, SOB at rest or wheezing. He notes chronic cough seems to have improved slightly. He denies any regular exercise and diet is poor. Eats a lot of fast food. Right foot pain: reports a sore to the bottom of the right foot for the past few months. Pain increasing, worse with ambulation. No treatments tried. He and 's letter indicate concerns for possible foreign body stuck in his foot. He denies any known trauma to the foot, fever, chills, redness or drainage from area. Requesting xray be done today. REVIEW OF SYSTEMS General: no fevers, no chills, no night sweats, no recurrent infections, no change in appetite and See HPI HEENT: no frequent or significant headaches, no changes in hearing, no visual changes, no sinus or nasal problems Respiratory: no wheezing, no hemoptysis, See HPI Cardiovascular: no chest pain, no chest pressure, no palpitations and See HPI GI: No nausea, vomiting, or diarrhea : No history of dysuria, frequency or incontinence Skin: See HPI Neurologic: No headache, weakness, numbness, tingling, neck stiffness, tremor, vertigo, dizziness, memory loss, syncope. Endocrine: complained of feeling cold all the time PAST MEDICAL HISTORY Diagnosis Date - Arrhythmia - Atrial fibrillation (HCC) - Bilateral edema of lower extremity 04/02/2016 - CHF (congestive heart failure) (HCC) - Detached retina 12/26/20142001 he had a surgery done. - Diverticulosis of colon (without mention of hemorrhage) Diverticulosis. 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 - Snoring - SOB (shortness of breath) 04/25/2014 - Social phobia with panic attacks - Stroke (HCC) - Syphilis - TREMOR NEC 07/06/2005 - Unspecified hemorrhoids without mention of complication Hemorrhoids PAST SURGICAL HISTORY Procedure Laterality Date - COLONOSCOP W/ OR W/O BRSH SPEC 10/26/13 Repeat 2023 - COLONOSCOP W/ OR W/O BRSH SPEC 08/11/15 Colonoscopy - COLONOSCOPY 11/27/01 - EGD W/O OR W/BRUSH/WASH 10/21/2014 EGD - HEART SURGERY HX 2014 cardioversion - HEMORRHOID: RUBBERBAND, SINGLE/MULTIPLE 09/2015 - LAP REPAIR INTIAL INGUINAL HERNIA 07/29/13 right - LAP REPAIR INTIAL INGUINAL HERNIA Left 04/06/2015 - PAST SURGICAL HISTORY OF 09/2001 LEFT EAR DK REPLACE BONE - PAST SURGICAL HISTORY OF 11/2001 REPEAT LEFT EAR DK - PAST SURGICAL HISTORY OF teeth pulled - PAST SURGICAL HISTORY OF 2005 detatched retenia right eye and muscle repair. 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 amLODIPine (NORVASC) 5 mg tablet Take 1 tablet by mouth once daily. aspirin, enteric coated (ASPIRIN, ENTERIC COATED) 81 mg EC tablet Take 81 mg by mouth once daily. cetirizine (ZYRTEC) 10 mg tablet Take 1 tablet by mouth once daily. fluticasone (FLONASE) 50 mcg/actuation nasal spray Use 2 Sprays in each nostril once daily. Rinse mouth after use. furosemide (LASIX) 40 mg tablet every day hydroCHLOROthiazide (HYDRODIURIL, ESIDRIX) 25 mg tablet Take 1 tablet by mouth once daily. metoprolol tartrate, short acting, (LOPRESSOR) 100 mg tablet Take 1 tablet by mouth twice daily. omeprazole (PRILOSEC) 20 mg capsule Take 1 capsule by mouth daily before breakfast. oxybutynin (DITROPAN) 5 mg tablet Take 1 tablet by mouth twice daily. pravastatin (PRAVACHOL) 20 mg tablet Take 20 mg by mouth once daily. rivaroxaban (XARELTO) 20 mg tablet Take 20 mg by mouth daily with dinner. sildenafil (VIAGRA) 100 mg tablet Take 1 tablet by mouth as needed. FAMILY HISTORY Problem Relation Age of Onset - Coronary Artery Disease Mother CABG - other (anemia) Mother - Cancer Father LUNG - Emphysema Father - other (IBS) Father - other (bipolar) Sister - Diabetes Daughter - Stroke No Family History - Heart Daughter myocarditis - other (Encephalocele) Daughter Social History Substance Use Topics - Smoking status: Never Smoker - Smokeless tobacco: Never Used - Alcohol use No PHYSICAL EXAM BP 134/80 Pulse 68 Temp 36.4 ?C (97.6 ?F) (Temporal Artery) Resp 16 Wt 134.3 kg (296 lb 0.6 oz) SpO2 97% BMI 40.15 kg/m? General Appearance: well appearing, in no acute distress, alert Skin: positives: mild facial flushing Head: normocephalic, atraumatic Eyes: conjunctiva pink and moist, no icterus, sclera white, non-injected Lungs: lungs clear to auscultation. No wheezing, rhonchi, rales Heart: RRR without murmur, gallop, or rubs. No ectopy Bilateral Lower Extremities: trace non-pitting edema, wearing compression stockings. Neurological: Gait normal. Sensation grossly intact. Right foot: small flesh colored papule to lateral aspect plantar aspect. Area mildly tender, slight erythema. Surrounding skin intact, no drainage or odor AALIYAH/ARB MED PRESCRIBED due on 1975 ANNUAL PCP TEAM CHRONIC DISEASE VISIT due on 07/08/2019 BP CONTROLLED (<130/80) due on 07/08/2019 PROSTATE CANCER SCREENING DISCUSSION due on 11/03/2019 DIABETES SCREEN due on 06/03/2020 COLORECTAL CANCER SCREENING,SEE MODIFIER due on 08/11/2020 LIPID SCREEN due on 12/12/2022 DTAP,TDAP,TD(3 - Tdap) due on 02/19/2026 INFLUENZA Completed HEPATITIS C SCREENING Completed ASSESSMENT/PLAN: 1. SOB (shortness of breath) on exertion - ICD9: 786.05, ICD10: R06.02 (primary diagnosis) - Symptoms and hx most consistent with diagnosis of CHF exacerbation, symptoms improving - Will request records from recent ER visit - Check kidney function and potassium level d/t concern for self medicating with Lasix - Continue lasix 40mg BID, instructed patient on dosing schedule and avoid self dosing d/t potential hypokalemia and kidney injury, voiced understand- concern regarding compliance. Home going instructions provided for to assist patient. - BASIC METABOLIC PNL - NT PRO BNP - Follow up and consults to be determined by laboratory studies - Continue compression stockings daily - Recommend regular exercise and weight loss - Avoid fast food and sodium intake - Recommend daily weight monitoring 2. Medication monitoring encounter - ICD9: V58.83, ICD10: Z51.81 - BASIC METABOLIC PNL - NT PRO BNP 3. Cold intolerance - ICD9: 780.99, ICD10: R68.89 - Likely a result of anticoagulants, but given patient's non-compliance with medication will check thyroid level - TSH BLD 4. Right foot pain - ICD9: 729.5, ICD10: M79.671 - Exam finding most consistent with diagnosis of plantar wart- discussed OTC treatment and follow up if no improvement - Patient and 's note requesting Xray to rule out foreign body, will order per patient's insistence. - XR FOOT GENERAL 3V AP/LAT/OBL RT Discussed risk vs benefits of non-compliance with Xarelto. Strongly recommend patient resume medication, Patient agreeable to restart. Nneka Denson APRN.CLAUS Prescription instructions reviewed with patient as applicable. Potential red flag symptoms discussed with the patient. Reviewed appropriate action plan to take if red flag symptoms occur. Patient agreeable to treatment plan. CNOV Observed: 10/01/2018 Status: COMPLETED Source: [place] 3:20 PM [facility] REPOSITORY Office Visit (INTMWS) ARMAAN GUTHRIE ([id number]) 1955 M [facility] Date Time Provider Department 10/01/18 3:20 PM NNEKA DENSON ([facility]) INTMWS During your visit today, we recorded the following information about you: Temperature Pulse Respiration Blood pressure 97.6 degrees 68/minute 16/minute 134/80 Weight 134.3 kg Nneka Denson APRN.CNP 10/02/2018 12:31 PM Signed CC: Patient presents with: Edema HPI Armaan Guthrie is a 63 year old male who presents today for complaints of fluid retention/weight gain, SOB on exertion and pain of the right foot. Patient presented alone but came with a handwritten note from his indicating patient had been in the ER several times the last few months, follow with and Dr. Heredia who encourage him to get rid of the excess fluid. The letter indicates he has been on Lasix 40mg BID but she had him increase to 60mg the last few days. She also notes weight gain and more difficulty with dressing himself. Patient is a rather poor historian and unaware of medications or doses, although he notes he stopped taking his Xarelto d/t bruising. Per patient he states he was last seen at [facility] ER ~2 weeks ago for SOB. He indicates weight was around 309 at this time and is down ~13lbs per scale today. Noted ~30lb weight gain over the last 1.5 years. Records not available at this time for review. He believes labs and CXR were completed, but told these were normal. Follows with , Pulmonology- last visit 3-4 weeks ago? States he was told to wear his Cpap as he has been non-compliant. Does not recall last visit with cardiology, appears last medication refill from cardiology around 07/2018? Today he complains of SOB with exertion, weight gain and improving BLE edema after wearing compression stocking the past week. He denies any fever, chills, chest pain, SOB at rest or wheezing. He notes chronic cough seems to have improved slightly. He denies any regular exercise and diet is poor. Eats a lot of fast food. Right foot pain: reports a sore to the bottom of the right foot for the past few months. Pain increasing, worse with ambulation. No treatments tried. He and 's letter indicate concerns for possible foreign body stuck in his foot. He denies any known trauma to the foot, fever, chills, redness or drainage from area. Requesting xray be done today. REVIEW OF SYSTEMS General: no fevers, no chills, no night sweats, no recurrent infections, no change in appetite and See HPI HEENT: no frequent or significant headaches, no changes in hearing, no visual changes, no sinus or nasal problems Respiratory: no wheezing, no hemoptysis, See HPI Cardiovascular: no chest pain, no chest pressure, no palpitations and See HPI GI: No nausea, vomiting, or diarrhea : No history of dysuria, frequency or incontinence Skin: See HPI Neurologic: No headache, weakness, numbness, tingling, neck stiffness, tremor, vertigo, dizziness, memory loss, syncope. Endocrine: complained of feeling cold all the time PAST MEDICAL HISTORY Diagnosis Date - Arrhythmia - Atrial fibrillation (HCC) - Bilateral edema of lower extremity 04/02/2016 - CHF (congestive heart failure) (HCC) - Detached retina 12/26/2014 2002 he had a surgery done. - Diverticulosis of colon (without mention of hemorrhage) Diverticulosis. 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 - Snoring - SOB (shortness of breath) 04/25/2014 - Social phobia with panic attacks - Stroke (HCC) - Syphilis - TREMOR NEC 07/06/2005 - Unspecified hemorrhoids without mention of complication Hemorrhoids PAST SURGICAL HISTORY Procedure Laterality Date - COLONOSCOP W/ OR W/O BRSH SPEC 10/26/13 Repeat 2023 - COLONOSCOP W/ OR W/O BRSH SPEC 08/11/15 Colonoscopy - COLONOSCOPY 11/27/01 - EGD W/O OR W/BRUSH/WASH 10/21/2014 EGD - HEART SURGERY 2014 cardioversion - HEMORRHOID: RUBBERBAND, SINGLE/MULTIPLE 09/2015 - LAP REPAIR INTIAL INGUINAL HERNIA 07/29/13 right - LAP REPAIR INTIAL INGUINAL HERNIA Left 04/06/2015 - PAST SURGICAL HISTORY OF 09/2001 LEFT EAR DK REPLACE BONE - PAST SURGICAL HISTORY OF 11/2001 REPEAT LEFT EAR DK - PAST SURGICAL HISTORY OF teeth pulled - PAST SURGICAL HISTORY OF 2005 detatched retenia right eye and muscle repair. - REMOVAL OF SKIN LESION removal of scc on lip by - MCKENZIE CATARACT EXTRACAP,INSERT LENS ~1997 congenital - REMV CATARACT INTRACAP,INSERT LENS ~1997 congenital - REPAIR ING HERNIA,5+Y/O,REDUCIBL 1989 LEFT - VASECTOMY ALLERGIES Ceftin [Cefuroxime]; Lisinopril; Penicillins; Vicodin [Hydrocodone-Acetaminophen] MEDICATIONS amiodarone (PACERONE) 200 mg tablet Take by mouth once daily. amLODIPine (NORVASC) 5 mg tablet Take 1 tablet by mouth once daily. aspirin, enteric coated (ASPIRIN, ENTERIC COATED) 81 mg EC tablet Take 81 mg by mouth once daily. cetirizine (ZYRTEC) 10 mg tablet Take 1 tablet by mouth once daily. fluticasone (FLONASE) 50 mcg/actuation nasal spray Use 2 Sprays in each nostril once daily. Rinse mouth after use. furosemide (LASIX) 40 mg tablet every day hydroCHLOROthiazide (HYDRODIURIL, ESIDRIX) 25 mg tablet Take 1 tablet by mouth once daily. metoprolol tartrate, short acting, (LOPRESSOR) 100 mg tablet Take 1 tablet by mouth twice daily. omeprazole (PRILOSEC) 20 mg capsule Take 1 capsule by mouth daily before breakfast. oxybutynin (DITROPAN) 5 mg tablet Take 1 tablet by mouth twice daily. pravastatin (PRAVACHOL) 20 mg tablet Take 20 mg by mouth once daily. rivaroxaban (XARELTO) 20 mg tablet Take 20 mg by mouth daily with dinner. sildenafil (VIAGRA) 100 mg tablet Take 1 tablet by mouth as needed. FAMILY HISTORY Problem Relation Age of Onset - Coronary Artery Disease Mother CABG - other (anemia) Mother - Cancer Father LUNG - Emphysema Father - other (IBS) Father - other (bipolar) Sister - Diabetes Daughter - Stroke No Family History - Heart Daughter myocarditis - other (Encephalocele) Daughter Social History Substance Use Topics - Smoking status: Never Smoker - Smokeless tobacco: Never Used - Alcohol use No PHYSICAL EXAM BP 134/80 Pulse 68 Temp 36.4 ?C (97.6 ?F) (Temporal Artery) Resp 16 Wt 134.3 kg (296 lb 0.6 oz) SpO2 97% BMI 40.15 kg/m? General Appearance: well appearing, in no acute distress, alert Skin: positives: mild facial flushing Head: normocephalic, atraumatic Eyes: conjunctiva pink and moist, no icterus, sclera white, non-injected Lungs: lungs clear to auscultation. No wheezing, rhonchi, rales Heart: RRR without murmur, gallop, or rubs. No ectopy Bilateral Lower Extremities: trace non-pitting edema, wearing compression stockings. Neurological: Gait normal. Sensation grossly intact. Right foot: small flesh colored papule to lateral aspect plantar aspect. Area mildly tender, slight erythema. Surrounding skin intact, no drainage or odor AALIYAH/ARB MED PRESCRIBED due on 1975 ANNUAL PCP TEAM CHRONIC DISEASE VISIT due on 07/08/2019 BP CONTROLLED (<130/80) due on 07/08/2019 PROSTATE CANCER SCREENING DISCUSSION due on 11/03/2019 DIABETES SCREEN due on 06/03/2020 COLORECTAL CANCER SCREENING,SEE MODIFIER due on 08/11/2020 LIPID SCREEN due on 12/12/2022 DTAP,TDAP,TD(3 - Tdap) due on 02/19/2026 INFLUENZA Completed HEPATITIS C SCREENING Completed ASSESSMENT/PLAN: 1. SOB (shortness of breath) on exertion - ICD9: 786.05, ICD10: R06.02 (primary diagnosis) - Symptoms and hx most consistent with diagnosis of CHF exacerbation, symptoms improving - Will request records from recent ER visit - Check kidney function and potassium level d/t concern for self medicating with Lasix - Continue lasix 40mg BID, instructed patient on dosing schedule and avoid self dosing d/t potential hypokalemia and kidney injury, voiced understand- concern regarding compliance. Home going instructions provided for to assist patient. - BASIC METABOLIC PNL - NT PRO BNP - Follow up and consults to be determined by laboratory studies - Continue compression stockings daily - Recommend regular exercise and weight loss - Avoid fast food and sodium intake - Recommend daily weight monitoring 2. Medication monitoring encounter - ICD9: V58.83, ICD10: Z51.81 - BASIC METABOLIC PNL - NT PRO BNP 3. Cold intolerance - ICD9: 780.99, ICD10: R68.89 - Likely a result of anticoagulants, but given patient's non-compliance with medication will check thyroid level - TSH BLD 4. Right foot pain - ICD9: 729.5, ICD10: M79.671 - Exam finding most consistent with diagnosis of plantar wart- discussed OTC treatment and follow up if no improvement - Patient and 's note requesting Xray to rule out foreign body, will order per patient's insistence. - XR FOOT GENERAL 3V AP/LAT/OBL RT Discussed risk vs benefits of non-compliance with Xarelto. Strongly recommend patient resume medication, Patient agreeable to restart. Nneka Denson APRN.ASSISTANT PROPERTY MANAGER Prescription instructions reviewed with patient as applicable. Potential red flag symptoms discussed with the patient. Reviewed appropriate action plan to take if red flag symptoms occur. Patient agreeable to treatment plan. Nneka Denson APRN.CLAUS 10/01/2018 4:21 PM Signed Right foot: will do xray given length of symptoms and uncertain of possible foreign body. If xrays are negative should treat at plantar wart. Can fern picker over the counter plantar wart. Fluid retention: Likely a result of CHF and high sodium intake. Discussed avoiding fast food and limiting salt intake. DO NOT ADD SALT! Please use salt substitute or other seasoning for flavor. Recommend regular exercise at least 5 times a week for 30 minutes at a time- walk. Please purchase a cheap at home scale. Weigh yourself first thing in the morning after you urinate and record your weights, if you notice an increase of 5-7lbs in a 24 hours. Continue only 40mg of the Lasix twice daily. I would recommend taking first thing in the morning as you have but do not take second dose until closer to 3 or 4 pm at the earliest. Need to check kidney function and potassium before increasing Lasix dose. Make sure you wear your compression stocking daily, may remove at night. Continue with Cpap MUST RESTART XARELTO! Referring Provider: BALDEMAR BRINK [[id number]] Allergies As of Date: 10/01/2018 Noted Allergy Reaction CEFTIN (CEFUROXIME) 07/01/2005 2 - Rash LISINOPRIL 11/02/2013 3 - Cough PENICILLINS 07/01/2005 4 - Hives VICODIN (HYDROCODONE-ACETAMINOPHE*07/01/2005 2 - Rash Date Reviewed: 10/01/2018 Reviewed by: Virginia Silver Chief Chemist - Fully Assessed Reason for Visit: Edema [39] Primary Visit Diagnosis:SOB (shortness of breath) on exertion [R06.02] Other Visit Diagnoses:Medication monitoring encounter [Z51.81] Cold intolerance [R68.89] Right foot pain [M79.671] Order(s):BASIC METABOLIC PNL [SQBMP] Order #: [id number] FUTURE NT PRO BNP [SQNTBNP] Order #: [id number] FUTURE TSH BLD [SQTSH] Order #: [id number] FUTURE XR FOOT GENERAL 3V AP/LAT/OBL RT [[id number]] Order #: [id number] FUTURE Omeprazole 40 mg capsuleTake 1 capsule by mouth once daily.Disp: 30 capsuleRfl: 2 Prescriptions as of 10/01/2018 Sig: AMIODARONE 200 MG TABLET Take by mouth once daily. AMLODIPINE 5 MG TABLET Take 1 tablet by mouth once d* ASPIRIN 81 MG TABLET,DELAYED * Take 81 mg by mouth once asad* CETIRIZINE 10 MG TABLET Take 1 tablet by mouth once d* FLUTICASONE 50 MCG/ACTUATION * Use 2 Sprays in each nostril * FUROSEMIDE 40 MG TABLET every day HYDROCHLOROTHIAZIDE 25 MG TAB* Take 1 tablet by mouth once d* METOPROLOL TARTRATE 100 MG TA* Take 1 tablet by mouth twice * OXYBUTYNIN CHLORIDE 5 MG TABL* Take 1 tablet by mouth twice * PRAVASTATIN 20 MG TABLET Take 20 mg by mouth once asad* RIVAROXABAN 20 MG TABLET Take 20 mg by mouth daily wit* SILDENAFIL 100 MG TABLET Take 1 tablet by mouth as nee* OMEPRAZOLE 40 MG CAPSULE,KIAH* Take 1 capsule by mouth once * Problem List As Of Date 10/01/2018 Noted Resolved Essential hypertension, benign [I10] INVALID FOR* More... More... 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 More... Headache(784.0) [R51] 03/24/2014 More... Atrial fibrillation (HCC) [I48.91] INVALID FOR*10/02/2015 More... [I50.9] INVALID FOR* More... More... More... Abdominal pain, unspecified site [R10.9] INVALID FOR*10/26/2014 More... More... Hepatitis B [B19.10] INVALID FOR* More... More... Rectal bleeding [K62.5] INVALID FOR*08/11/2015 ZAID (obstructive sleep apnea) [G47.33] INVALID FOR* Vertigo [R42] INVALID FOR*11/21/2015 Stroke (HCC) [I63.9] INVALID FOR* Tremor [R25.1] INVALID FOR* Constitutional obesity [E66.8] INVALID FOR* Paroxysmal atrial fibrillation (HCC) [I48.0] INVALID FOR* More... More... Cirrhosis of liver without ascites (HCC) [K74.6*INVALID FOR* More... LGI bleed [K92.2] INVALID FOR* Obesity (BMI 35.0-39.9 without comorbidity) [E6*INVALID FOR* Pulmonary hypertension, secondary (HCC) [PHS722*INVALID FOR* Varicose vein of leg [I83.90] INVALID FOR* More... Other instructions from your clinician: Right foot: will do xray given length of symptoms and uncertain of possible foreign body. If xrays are negative should treat at plantar wart. Can fern picker over the counter plantar wart. Fluid retention: Likely a result of CHF and high sodium intake. Discussed avoiding fast food and limiting salt intake. DO NOT ADD SALT! Please use salt substitute or other seasoning for flavor. Recommend regular exercise at least 5 times a week for 30 minutes at a time- walk. Please purchase a cheap at home scale. Weigh yourself first thing in the morning after you urinate and record your weights, if you notice an increase of 5-7lbs in a 24 hours. Continue only 40mg of the Lasix twice daily. I would recommend taking first thing in the morning as you have but do not take second dose until closer to 3 or 4 pm at the earliest. Need to check kidney function and potassium before increasing Lasix dose. Make sure you wear your compression stocking daily, may remove at night. Continue with Cpap MUST RESTART XARELTO! Prescriptions ordered this encounter Disp Refills Start End OMEPRAZOLE 20 MG CAPSULE,DELAYED REL* 30 c* 2 10/01/2018 10/01/2018 Route: ORAL Sig: Take 1 capsule by mouth daily before breakfast. OMEPRAZOLE 40 MG CAPSULE,DELAYED REL* 30 c* 2 10/01/2018 Route: ORAL Sig: Take 1 capsule by mouth once daily. Medications Discontinued During This Encounter omeprazole (PRILOSEC) 20 mg capsule 30 c* 2 07/08/2018 10/01/2018 Route: ORAL Sig: Take 1 capsule by mouth daily before breakfast. Disc: Reason for discontinue is not on file. omeprazole (PRILOSEC) 20 mg capsule 30 c* 2 10/01/2018 10/01/2018 Route: ORAL Sig: Take 1 capsule by mouth daily before breakfast. Disc: Reason for discontinue is not on file. Follow-up and Disposition History Recorded Encounter Status:Closed by NNEKA DENSON CNP on 10/02/18 6 MINUTE WALK TEST Observed: 09/24/2018 Status: F Source: [place] 3:02 PM [facility] [place] [facility] Pulmonary Services/Neurology [address] [place] [address] MR#: [id number] Acct: [id number] Name: ARMAAN GUTHRIE Rep #: [id number] : 1955 63 From: Kieran Diop DO Referring Dr: Carlo Heredia MD Date: Ordering Dr: Sex: M C Location: PSN PSN 6 Minute Walk Test - 6 Minute Walk Test 6 Minute Walk Test: 6 Minute Walk Test PSN:6-Minute Walk Test Start: 09/22/18 08:39 Freq: Status: Active Protocol: RESP.6MINW Document 09/22/18 08:30 HG (Rec: 09/22/18 08:41 HG [id number]) 6 Minute Walk Test Date Performed 09/22/18 Time Performed 08:30 Height 6 ft Weight: 306 lb Weight in Pounds 306.[address]: Carlo Heredia Assistive device used: None Pre-test Oxygen Delivery Method Room Air Pulse Ox (%) 93 Pulse Rate (60-100 beats/min) 65 Dyspnea Oni Scale (0-10) 2 Exertion Oni Scale (6-20) 8 1st minute Oxygen Delivery Method Room Air Pulse Ox (%) 95 Pulse Rate (60-100 beats/min) 73 2nd minute Oxygen Delivery Method Room Air Pulse Ox (%) 93 Pulse Rate (60-100 beats/min) 83 3rd minute Oxygen Delivery Method Room Air Pulse Ox (%) 92 Pulse Rate (60-100 beats/min) 78 4th minute Oxygen Delivery Method Room Air Pulse Ox (%) 92 Pulse Rate (60-100 beats/min) 81 5th minute Oxygen Delivery Method Room Air Pulse Ox (%) 91 Pulse Rate (60-100 beats/min) 82 6th minute Oxygen Delivery Method Room Air Pulse Ox (%) 90 Pulse Rate (60-100 beats/min) 74 Post-test Oxygen Delivery Method Room Air Pulse Ox (%) 94 Pulse Rate (60-100 beats/min) 70 Dyspnea Oni Scale (0-10) 3 Exertion Oni Scale (6-20) 13 Full Laps Walked 18 Partial Lap, Number of Tiles Walked 0 Total Distance Walked (ft) 1062 - Interpretation Interpretation: The patient ambulated 1062 feet over the course of 6 minutes beginning on room air without assistive devices or breaks. Pretesting oxygen saturation was noted to be 93% on room air. With ambulation, the vaishali oxygen saturation was 90%. There was no significant exertional oxygen desaturation. - Recommendations Recommendations: There is no indication for the use of supplemental oxygen at this time. 09/24/18 1502 <Electronically signed by Kieran Diop DO> Date Kieran Diop DO CC: Date Dictated: 09/24/18 1501 Date Transcribed: 09/24/18 150 Script Writer: Kieran Diop DO Signed 12 LEAD ELECTROCARDIOGRAM Observed: 09/23/2018 Status: F Source: [place] 3:53 PM [facility] [place] [facility] Cardiovascular Services [address] [place] [address] 12 Lead EKG 09/19/18 0932 MR#: [id number] Acct: [id number] Name: ARMAAN GUTHRIE Rep #: [id number] : 1955 63 From: Morro Perez MD Attending Dr: Status: DEP ER Ordering Dr: Stevie Alberts MD Date: 09/19/18 Location: ED Sex: M C Admitted: Test Reason : SOB Blood Pressure : / mmHG Vent. Rate : 063 BPM Atrial Rate : 063 BPM P-R Int : 178 ms QRS Dur : 104 ms QT Int : 458 ms P-R-T Axes : 012 004 040 degrees QTc Int : 468 ms Normal sinus rhythm Normal ECG Confirmed by MORRO PEREZ MD ([id number]), mapping editor JANETH DING ([id number]) on 09/23/2018 3:52:52 PM Referred By: Zach Castillo Confirmed By:MORRO PEREZ MD 09/23/18 1552 Date Morro Perez MD CC: Baldemar Brink MD; Stevie Alberts MD Signed EMERGENCY DEPARTMENT Observed: 09/19/2018 Status: F Source: [place] SUMMARY 4:56 PM [facility] [place] [facility] Medical Records Department [address] [place] [address] Emergency Department Summary 09/19/18 0926 MR#: [id number] Acct: [id number] Name: ARMAAN GUTHRIE Rep #: [id number] : 1955 63 From: Stevie Alberts MD PCP: Baldemar Brink MD Status: DEP ER - ER Visit Summary Date of Service: 09/19/18 Chief Complaint: CHF History of Present Illness: The patient is a 63 M who is here for CHF symptoms. He has had a 4 pound weight gain over the last few days. He reports increasing swelling to his legs and some shortness of breath. He has a history of CHF. He was instructed to come in to the emergency department on Friday, but was busy working. He was advised to take his Lasix twice a day. He has only been taking it once a day. He also complains of some left rib pain after falling and he complains of a sore on the bottom of the right foot. No fevers. No chest pain. No cough or sputum. He has a history of DVT and atrial fibrillation. He takes Xarelto. Physical Examination: Afebrile and vital signs are unremarkable. Patient is alert and oriented. No acute distress. Walking without any apparent difficulty. Sitting and moving comfortably. Speaking in full sentences. Lungs show mild crackles at the base. Heart regular. Abdomen soft. 4+ pitting lower extremity edema noted. Calves are nontender. Test Results: EKG, chest x-ray, labs pending. Emergency Department Course and Treatment: Patient has symptoms of CHF. His symptoms are worse than baseline, but nothing severe. His vitals are unremarkable. Clinically he appears well. We will check labs, x-ray, EKG. Patient may need to increase his Lasix. Will reassess. EKG showed sinus rhythm at a rate of 63. Chest x-ray showed nothing acute. White count 3.2, hemoglobin 12.3, platelets 127, BUN 25, creatinine 1.32. Troponin normal. BNP 596. Patient ambulated with a pulse ox on room air. He was 97- 95%. He appears well clinically. I spoke with Dr. Heredia. I advised that the patient can increase his Lasix to twice a day and follow-up with Dr. Heredia in the office and Dr. Heredia was okay with that plan. Treatment Plan: As above Disposition: Discharge Impression: 1. CHF This note was generated with [employer] dictation software. It may contain incorrect words, spelling, and punctuation that were not noted in review of the chart prior to signing ED Disposition - Plan for ED Patient: Chief Complaint: Shortness of Breath Referrals: Baldemar Brink MD [Primary Care Provider] - What to do if you have Problems For any increased pain, shortness of breath, bleeding, nausea or vomiting, chest pain, or any unexpected problems, contact your Primary Care Provider. Call [facility] ([phone]) or report to the closest Emergency Room. Call 911 if necessary. 09/19/18 8209 <Electronically signed by Stevie Alberts MD> Date Stevie Alberts MD Cosigner Signature (If Indicated): Date CC: Baldemar Brink MD DISCHARGE INSTRUCTION Observed: 09/19/2018 Status: F Source: [place] 4:56 PM [facility] [place] [facility] Medical Records Department [address] [place] [address] Discharge Instruction 09/19/18 1044 MR#: [id number] Acct: [id number] Name: ARMAAN GUTHRIE Rep #: [id number] : 1955 63 From: Stevie Alberts MD PCP: Baldemar Brink MD Status: DEP ER ED Disposition - Plan for ED Patient: Chief Complaint: Shortness of Breath Instructions: ED CHF General Referrals: Carlo Heredia MD [STAFF PHYSICIAN] - What to do if you have Problems For any increased pain, shortness of breath, bleeding, nausea or vomiting, chest pain, or any unexpected problems, contact your Primary Care Provider. Call [facility] ([phone]) or report to the closest Emergency Room. Call 911 if necessary. 09/19/18 1656 <Electronically signed by Stevie Alberts MD> Date Stevie Alberts MD Cosigner Signature (If Indicated): Date CC: Baldemar Brink MD CBC W/DIFF, AUTOMATED Collected: 09/19/2018 Status: F Source: [place] 9:40 AM [facility] [place] [facility] TYPE CODE TESTS RESULT OUT OF RANGE REFERENCE UNITS LAB L100.1000 4.4-11.0 K/mm3 Low WBC 3.2 LAB L100.1200 4.6-6.2 M/mm3 Low RBC 3.92 LAB L100.1300 13.0-16.5 g/dl Low HGB 12.3 LAB L100.1400 40-54 % Low HCT 37.6 LAB L100.1500 80-94 fL High MCV 95.9 LAB L100.1600 27.0-32.0 pg Normal MCH 31.4 LAB L100.1700 32-36 g/gl Normal MCHC 32.7 LAB L100.1810 11.6-14.6 % High RDW CV 15.0 LAB L100.1820 35.1-43.9 fl High RDW SD 52.7 LAB L100.1900 150-450 K/mm3 Low PLT 127 LAB L100.2000 6.2-12.0 fl Normal MPV 9.7 LAB L100.2100 47-70 % Normal NEUT% 51.3 LAB L100.2200 19-41 % Normal LY% 33.6 LAB L100.2300 0-10 % High MONO% 10.8 LAB L100.2400 0-5 % Normal EO% 4.0 LAB L100.2500 0-1 % Normal BASO% 0.3 LAB L100.2550 0.0-0.9 % Normal IM GRAN % 0.000 Result Comment: IG% - Immature Granulocytes (promyelocytes, myelocytes and metamyelocytes) > 1% indicates that a LEFT SHIFT is Present. LAB L100.2620 2.0-7.7 X10 3/uL Low Absolute Neut 1.7 LAB L100.2720 0.83-4.51 X10 3/ul Normal Absolute Lymph 1.09 Performed By: #### L100.0100 #### [facility] [address] [place], [address] BASIC METABOLIC Collected: 09/19/2018 Status: F Source: [place] PROFILE ([facility]) 9:40 AM [facility] [place] [facility] TYPE CODE TESTS RESULT OUT OF RANGE REFERENCE UNITS LAB L501.0100 74-106 mg/dL High GLU 117 Result Comment: Fasting Glucose result from 100 to 125 mg/dL suggests IMPAIRED HOMEOSTASIS per A.D.A. criteria. Please note revised GLUCOSE reference range effective 2017. LAB L501.1000 7-18 mg/dL High BUN 25 LAB L501.1100 0.70-1.30 mg/dL High CREAT,SERUM 1.32 Result Comment: The validity of the calculated GFR AND GFRAA in patients over 70 years has not been determined. Clinical correlation is essential. LAB L501.1110 >60 mL/min Low EST GFR 59 Result Comment: Non- GFR Calc LAB L501.1115 >60 mL/min Normal EST GFR - AA 71 Result Comment: GFR Calc LAB L501.1255 ml/min Normal Estimated CRCL 66.42 LAB L501.1300 10-20 RATIO Normal BUN/CRE 18.9 LAB L501.2200 8.5-10 mg/dL Low .1 CA 7.7 LAB L501.5300 136-14 mmol/L Normal 5 NA 141 LAB L501.5600 3.5-5. mmol/L Normal 1 K 4.0 LAB L501.5900 98-107 mmol/L Normal CL 107 LAB L501.6100 21.0-3 mmol/L Normal 2.0 CO2 27.0 LAB L501.6200 5-15 Normal GAP 7 Performed By: #### L500.2500, L501.4010 #### [facility] [address] [facility] [place], [place], [id number] TROPONIN-I Collected: 09/19/2018 Status: F Source: [place] 9:40 AM [facility] [place] [facility] TYPE CODE TESTS RESULT OUT OF RANGE REFERENCE UNITS LAB L501.4010 <0.045 ng/mL Normal 0.019 TROPONIN-I Result Comment: TROPONIN-I EXPECTED VALUES <0.045 Negative 0.045 - 0.590 Consistent with Cardiac Damage > OR = 0.600 Critical Value Not every elevated troponin is indicative of SD. These values should be used with clinical judgement in examining the patient's clinical picture for diagnosis. To establish a diagnosis of SD versus myocardial injury, there must be a demonstrated rise and/or fall in the troponin values, in addition to ischemic symptoms, EKG changes, new regional wall motion abnormality, and/or angiographical evidence. PLEASE NOTE: REFERENCE RANGES EDITED 18 Performed By: #### L500.2500, L501.4010 #### [facility] [address] [facility] [place], [address] BNP,B-TYPE NATRIURETIC Collected: 09/19/2018 Status: F Source: [place] 9:40 AM [facility] [place] [facility] TYPE CODE TESTS RESULT OUT OF RANGE REFERENCE UNITS LAB L503.6620 0-100 pg/mL High B-TYPE 596.6 ANA PEP Performed By: #### L503.6620 #### [facility] [address] [place], [address] CHEST 1 VIEW Observed: 09/19/2018 Status: F Source: [place] (PORTABLE) 9:26 AM [facility] [place] [facility] Imaging Services [address] [place] [address] Chest 1 View (Portable) MR#: [id number] Acct: [id number] Name: ARMAAN GUTHRIE Rep #: [id number] : 1955 M 63 From: Arnold Bustamante MD PCP: Baldemar Brink MD Status: REG ER Study: Chest 1 View (Portable) Date of Exam: 09/19/18 Exam# [id number] Ordering Dr: Stevie Alberts MD STUDY: X-RAY CHEST REASON FOR EXAM: Male, 63 years old. Fall. Chest pain. TECHNIQUE: Single AP portable view of the chest. COMPARISON: 08/13/2018. FINDINGS: Continued probable chronic pulmonary changes with some interstitial prominence especially on the right. Stable mild elevation of the right hemidiaphragm. No infiltrates or effusions. There is mild cardiac enlargement. Normal mediastinum and annamarie. Normal visualized pulmonary arteries. Normal visualized aortic arch and descending thoracic aorta. Normal visualized thoracic spine. Normal visualized ribs, clavicles, and shoulders. There is no demonstrated abnormality of the visualized soft tissue structures of the upper abdomen. RAD/Chest 1 View (Portable) IMPRESSION: No change. Chronic pulmonary changes and no acute chest disease. Electronically Signed: Arnold Bustamante MD at 10:10 EST , Service support , CC: Baldemar Brink MD; Stevie Alberts MD Script Writer: Signed BASIC METABOLIC Collected: 09/17/2018 Status: F Source: [place] PROFILE (BMP) 4:44 PM [facility] [place] [facility] TYPE CODE TESTS RESULT OUT OF RANGE REFERENCE UNITS LAB L501.0100 74-106 mg/dL Low GLU 69 Result Comment: Please note revised GLUCOSE reference range effective 2017. LAB L501.1000 7-18 mg/dL High BUN 26 LAB L501.1100 0.70-1.30 mg/dL High CREAT,SERUM 1.53 Result Comment: The validity of the calculated GFR AND GFRAA in patients over 70 years has not been determined. Clinical correlation is essential. LAB L501.1110 >60 mL/min Low EST GFR 49 Result Comment: Non- GFR Calc LAB L501.1115 >60 mL/min Normal EST GFR - AA 60 Result Comment: GFR Calc LAB L501.1300 10-20 RATIO Normal BUN/CRE 17.0 LAB L501.2200 8.5-10.1 mg/dL Low CA 8.2 LAB L501.5300 136-145 mmol/L NA Normal 141 LAB L501.5600 3.5-5.1 mmol/L K Normal 3.7 LAB L501.5900 98-107 mmol/L CL Normal 105 LAB L501.6100 21.0-32.0 mmol/L Normal CO2 26.0 LAB L501.6200 5-15 Normal GAP 10 Performed By: #### L500.2500, L500.3400, L501.9310, L501.9520 #### [facility] [address] [place], [address] LIVER PROFILE Collected: 09/17/2018 Status: F Source: [place] 4:44 PM [facility] [place] [facility] TYPE CODE TESTS RESULT OUT OF RANGE REFERENCE UNITS LAB L501.1500 6.4-8.2 g/dL Normal T PROT 6.8 LAB L501.1800 3.2-5.0 g/dL Low ALB 2.9 LAB L501.1950 2.2-4.2 g/dL Normal GLOB 3.9 LAB L501.4100 15-37 U/L High AST 40 LAB L501.4305 45-117 U/L High ALK P 167 LAB L501.4405 16-61 U/L Normal ALT 30 LAB L501.4600 0.20-1.00 mg/dL High T BILI 2.00 LAB L501.4700 0.00-0.30 mg/dL High D BILI 0.71 Performed By: #### L500.2500, L500.3400, L501.9310, L501.9520 #### [facility] [address] [place], [address] T4 TOTAL, THYROXIN Collected: 09/17/2018 Status: F Source: [place] 4:44 PM [facility] [place] [facility] TYPE CODE TESTS RESULT OUT OF REFERENCE UNITS RANGE LAB L501.9310 4.5-12.1 ug/dL T4 High THYROXIN 15.1 Performed By: #### L500.2500, L500.3400, L501.9310, L501.9520 #### [facility] [address] [place], [place], [id number] THYROID STIM HORMONE Collected: 09/17/2018 Status: F Source: [place] (TSH) 4:44 PM [facility] [place] [facility] TYPE CODE TESTS RESULT OUT OF RANGE REFERENCE UNITS LAB L501.9520 0.358-3.74 uIU/mL Normal TSH 2.20 Performed By: #### L500.2500, L500.3400, L501.9310, L501.9520 #### [facility] [address] [place], [place], [address] PULMONARY VISIT REPORT Observed: 09/08/2018 Status: F Source: [place] 7:09 AM [facility] [place] [facility] of [address] [place], [place] [address] OFFICE VISIT Date of Service: 09/08/18 MR#: [id number] Acct: [id number] Name: ARMAAN GUTHRIE Rep #: [id number] : 1955 Provider: Carlo Heredia MD Age/Sex: 63/M Location: [facility] Status: Signed Assessment AND Plan Problems 1. Shortness of breath R06.02; R06.00; R06.01 2. ZAID (obstructive sleep apnea) G47.33 3. Chronic atrial fibrillation I48.2 4. Non-ischemic cardiomyopathy I42.8 Plan Clinical suspicion for poor control of congestive heart failure leading to patient's current dyspnea on exertion. Did stress to the patient compliance with CPAP therapy may help with lower extremity swelling. Also stressed to the patient the importance of noncompliance with Xarelto therapy. Patient does have a history of atrial fibrillation and DVT indicating patient may have serious complications with lack of anticoagulation. Also stressed with the patient the importance of completing diuretic therapy in the setting of a low-salt diet. Patient appears to have very poor insight into his overall disease process. Patient will be asked to follow-up with Dr. Diop as he was formally established with him. Will order a walking oximetry to evaluate for exertional hypoxemia given elevated pulmonary artery pressures. Encourage compliance with therapies. Walking oximetry immediately. Supplemental oxygen if indicated. Orders Orders: Plan Detail Follow Up 3 Months (Dr. Diop) HPI Insomnia, SOB: Chief Complaint: Shortness of breath Details: Patient is a 63-year-old male, currently under the care of Dr. Brink, who presents for evaluation secondary to shortness of breath. Patient was given a new patient appointment, but has been seen by Dr. Diop in the past. Since last visit, patient reports that he has been noncompliant with Xarelto therapy. Patient has noted a 40 pound weight gain and states that he did not complete his walking oximetry as previously reported. Patient has had a cardioversion in November. Patient states he does take his Lasix, but it does not appear to work every day. Patient reports that he has had significant issues with cough, typically at night and with lying flat. Patient states that this can get significant to the point that it decreases his sleep. Patient does have a prescription for a CPAP machine, but is not been compliant for years. Patient is unable to provide any reason for noncompliance. Patient has noted a 50 pound weight gain over the last 6-12 months. Patient states his legs are significantly swollen and patient was placed on Lasix so I can get my feet to my shoes. Patient denies any hemoptysis or chest pain, but states my heart can race at times when I exert myself. Patient has noted that he is unable to move want any longer. Documentation personally reviewed 13 pages of documentation were reviewed from patient's primary care physician. Patient has been seen recently secondary to a rash on his back and ongoing cough. Patient reportedly clears his throat often. Patient also has a history of congestive heart failure, atrial fibrillation and snoring. Patient reportedly has never been a smoker, but does have a family history of emphysema. Patient is on Xarelto, Lopressor, Flonase and Viagra. Patient has received his flu shot this year. Chest x-ray completed in April showed no acute infiltrates Testing personally reviewed with the patient Complete PFT (08/16/2018): Mild restrictive ventilatory defect with associated moderate reduction diffusing capacity (FVC 85%, FEV1 81%, TLC 82%, DLCO 54%) Echocardiogram (08/14/2018): EF 65% with mild LVH and moderately enlarged left atrium. Pulmonary artery systolic pressure of 45 mmHg with suspected diastolic dysfunction HPI Comments Details: Intake Vital Signs09/08/18 Height 6 ft 1 in 09/08/18 Weight: 137.892 kg 09/08/18 Body Mass Index (BMI) 40.1 Intake Visit Reasons: Insomnia, SOB Bank Officer Required: No Accompanied by: Self Is patient in pain?: Yes Allergies cefuroxime axetil [From Ceftin] Allergy (Verified 09/08/18 06:34) Rash hydrocodone bitartrate [From Vicodin] Allergy (Verified 09/08/18 06:34) Rash Penicillins Allergy (Verified 09/08/18 06:34) Hives carvedilol [From Coreg] Adverse Reaction (Verified 09/08/18 06:34) Other lisinopril Adverse Reaction (Verified 09/08/18 06:34) Other Medications aspirin 81 mg tablet,delayed release 81 mg PO QDAY #30 tab 10/07/17 [Rx Confirmed 09/08/18] Acetaminophen [Tylenol] 500 - 1,000 mg PO Q6H PRN PRN 11/19/17 [History Confirmed 09/08/18] Metoprolol Tartrate [Lopressor (beta abram)] 100 mg PO BID 11/19/17 [History Confirmed 09/08/18] furosemide 40 mg tablet 40 mg PO QDAY #90 tab 01/16/18 [Rx Confirmed 09/08/18] pravastatin 20 mg tablet 20 mg PO QHS #30 tab 04/03/18 [Rx Confirmed 09/08/18] Sildenafil Citrate [Viagra] 100 mg PO PRN PRN 05/05/18 [History Confirmed 09/08/18] nitroglycerin 0.4 mg sublingual tablet 0.4 mg SUBLINGUAL Q5- 15M PRN #25 tab 05/08/18 [Rx Confirmed 09/08/18] amiodarone 200 mg tablet 100 mg PO DAILY tab 07/31/18 [History Confirmed 09/08/18] amlodipine 10 mg tablet 10 mg PO DAILY #90 tab 07/31/18 [Rx Confirmed 09/08/18] Omeprazole 40 mg PO DAILY 08/13/18 [History Confirmed 09/08/18] tramadol 50 mg tablet 50 mg PO Q6H PRN 09/08/18 [History Confirmed 09/08/18] PFSH Medical History Essential hypertension (Chronic) History of congestive heart failure (Chronic) History of cardiomyopathy (Chronic) History of atrial fibrillation (Chronic) History of cardioversion (Resolved 08/2017) History of echocardiogram (Resolved 08/2017) History of echocardiogram (Acute 01/2013) Erectile dysfunction (Chronic) Obesity (BMI 30-39.9) (Chronic) ZAID (obstructive sleep apnea) (Chronic) DVT (deep venous thrombosis) (Chronic) Renal insufficiency (Acute) Surgical History H/O cardiac catheterization (Resolved 06/2009) History of detached retina repair (Resolved) History of left inguinal hernia repair (Resolved) Family History Mother , CABG @ 50yrs, age 61 CAD (coronary artery disease) Social History Smoking Status: Never smoker alcohol intake: never substance use type: does not use caffeine: No what type of physical activity do you participate in: other details: PT frequency: 3-4 times per week duration: 15-30 minutes/day seatbelt use: always do you feel safe at home: Yes Review of Systems Const CONSTITUTIONAL: Negative anorexia, body ache, chills, daytime sleepiness, fever(s), night sweats, oral thrush, stops breathing during sleep, weight loss, sleeping in chair, fatigue, weight loss, weight gain, frequent colds, seasonal allergies, other, headache(s) or orthopnea EETM Ear Nose Throat Mouth: Positive hearing normal; negative hoarseness, dry mouth in morning, change in vision, itchy eyes, eye pain, swallowing Difficulty, ear pain, headache(s), mouth pain, nasal congestion, nasal discharge, sinus pain, sinus pressure, sore throat, other, hard of hearing, nose bleed or post nasal drip Cardio Cardiovascular: Negative chest pain, chest pain at rest, chest pain with activity, irregular heart rhythm, edema, shortness of breath when lying down, palpitations, other or murmur Resp Respiratory: Positive as per HPI; negative shortness of breath, pain with cough, wheezing, chest congestion, cough, chest tightness, pain on inspiration, inhalers, increase use of rescue inhalers, snoring, apnea or other Gastro Gastrointestional: Negative bloody stools, change in appetite, difficulty swallowing, reflux, hematemesis, melena stool, loose stool, constipation or other Genitourinary: Negative blood in urine, nocturia, pain with urination or other Musc Musculoskeletal: Negative body pain, back pain, neck pain or other Skin/Breast Skin/Breast: Negative dry skin, itching, unusual bruising, breast lump, other or rash Neuro Neurological: Negative restless legs, confusion, weakness or other Psych Psychocological: Negative abnormal sleep pattern, anxiety, thoughts of hurting self/others, hopelessness or other Lymph Lymphatic: Negative easy bleeding, easy bruising, other or swollen lymph nodes Exam Const Constitutional: Positive conversant, cooperative, in no acute respiratory distress, well developed, well nourished, obese, appears older than stated age and poor hygiene; negative wearing supplemental oxygen or ill appearing Head Head: Positive normocephalic and atraumatic; negative cyanosis of lips/distal nose, frontal sinus tenderness or maxillary sinus tenderness Eyes Eye: Positive clear conjunctiva; negative nystagmus, scleral abnormality or cataract present Ears Ear: Positive hearing normal and external ears normal; negative hard of hearing Nose Nose: Positive external nose normal, septum normal and no nasal discharge; negative epistaxis or nasal polyp Mouth Mouth: Positive oral mucosae normal, no lesions and crowded posterior oropharynx; negative post nasal drip, malodorous breath or oral thrush present Mallampati Score: IV: Mallampati Score Neck Neck: Positive normal visual inspection, full ROM, trachea midline, male neck greater than 43 cm (17 in) and thick neck; negative lymphadenopathy or JVD Chest Wall Chest: Positive normal inspection of the chest and symmetric chest movement; negative crepitus or tenderness Resp lung sounds: Positive normal expiratory time, diminished and normal respiratory effort; negative wheezes, rhonchi, rales, use of accessory muscles or wheeze present on forced exhalation Cardio Cardiac: Positive regular rate, S1 normal and S2 normal; negative murmur, regular rhythm, rub or gallop GI GI: Positive normal to inspection, normal bowel sounds and obese; negative distended, ascites or epigastric tenderness Genitourinary: Positive deferred Musc Musculoskeletal: Negative using an assistive device for ambulation, kyphosis, scoliosis or steady gait Skin Pulmonary Skin Exam: Positive intact and ulcers (LE); negative rash, lesion or dermal atrophy Pulses Pulse: Yes radial pulses present Extremities Extremities: Yes capillary refill normal, No clubbing, No cyanosis, Yes edema (4+) Location: lower extremity Neuro Neurologic: Yes conversant, Yes no focal neuro deficits, Yes normal concentration, Yes understands questions, Yes cooperative, Yes normal cognition, Yes normal coordination Lymph Lymphatic: No lymphadenopathy Psych Appearance: Positive disheveled Mental Status: Positive mental status grossly normal Mood: Positive congruent mood Affect: Positive normal affect Coding Level of Care Code Off vis,est,level 4 Diagnoses Shortness of breath R06.02; R06.00; R06.01 Dyspnea type: shortness of breath ZAID (obstructive sleep apnea) G47.33 Chronic atrial fibrillation I48.2 Non-ischemic cardiomyopathy I42.8 09/08/18 0709 <Electronically signed by Carlo Heredia MD> Date Carlo Heredia MD Cosigner Signature: Date (if applicable) CC: Baldemar Brink MD; Kieran Diop D.O. BASIC METABOLIC Collected: 08/20/2018 Status: F Source: [place] PROFILE (BMP) 4:41 PM [facility] [place] CODE TESTS RESULT OUT OF RANGE REFERENCE UNITS LAB L501.0100 74-106 mg/dL Normal GLU 79 Result Comment: Please note revised GLUCOSE reference range effective 2017. LAB L501.1000 7-18 mg/dL High BUN 27 LAB L501.1100 0.70-1.30 mg/dL High CREAT,SERUM 1.85 Result Comment: The validity of the calculated GFR AND GFRAA in patients over 70 years has not been determined. Clinical correlation is essential. LAB L501.1110 >60 mL/min Low EST GFR 40 Result Comment: Non- GFR Calc LAB L501.1115 >60 mL/min Low EST GFR - AA 48 Result Comment: GFR Calc LAB L501.1300 10-20 RATIO Normal BUN/CRE 14.6 LAB L501.2200 8.5-10.1 mg/dL Low CA 8.2 LAB L501.5300 136-145 mmol/L NA Normal 138 LAB L501.5600 3.5-5.1 mmol/L K Normal 3.8 LAB L501.5900 98-107 mmol/L CL Normal 104 LAB L501.6100 21.0-32.0 mmol/L Normal CO2 26.0 LAB L501.6200 5-15 Normal GAP 8 Performed By: #### L500.2500 #### [facility] [address] [facility] [place], [address] 12 LEAD ELECTROCARDIOGRAM Observed: 08/17/2018 Status: F Source: [place] 2:31 PM [facility] [place] [facility] Cardiovascular Services [address] [place] [address] 12 Lead EKG 08/13/18 0511 MR#: [id number] Acct: [id number] Name: ARMAAN GUTHRIE Rep #: [id number] : 1955 63 From: Stevie Rondon MD Attending Dr: Status: DEP ER Ordering Dr: Zach Dallas MD Date: 08/13/18 Location: ED Sex: M C Admitted: Test Reason : GEN ILLNESS Blood Pressure : / mmHG Vent. Rate : 061 BPM Atrial Rate : 061 BPM P-R Int : 184 ms QRS Dur : 104 ms QT Int : 462 ms P-R-T Axes : 011 -02 043 degrees QTc Int : 465 ms Normal sinus rhythm Normal ECG Confirmed by STEVIE RONDON ([id number]), mapping editor JANETH DING ([id number]) on 08/17/2018 2:31:14 PM Referred By: DR DALLAS Confirmed By:STEVIE RONDON 08/17/18 1431 Date Stevie Rondon MD CC: Baldemar Brink MD; Zach Dallas MD Signed PULMONARY FUNCTION Observed: 08/16/2018 Status: F Source: [place] TEST 7:01 AM [facility] REPOSITORY [facility] Pulmonary Services/Neurology [address] [place] [address] MR#: [id number] Acct: [id number] Name: ARMAAN GUTHRIE Rep #: [id number] : 1955 63 From: Kieran Diop DO Referring Dr: Zach Castillo MD Status: REG CLI Ordering Dr: Date: Location: [facility] Sex: M C INTRODUCTION: The patient is a 63-year-old male that presents for pulmonary function testing secondary to a diagnosis of high risk medication use. Respiratory therapy reports good patient effort. Bronchodilators were used during testing. INTERPRETATION: Forced expiration spirometry demonstrates no evidence of a large airways obstructive ventilatory defect. There was no significant response to aerosolized bronchodilators. Spirograms are of good quality and do not plateau indicating slow emptying of the lungs. Body plus tomography was performed and reveals a decreased TLC to 5.84 L, 82% of predicted, indicative of a mild restrictive ventilatory defect. The remainder of the lung volumes are symmetrically reduced. Diffusing capacity by single breath CO is moderately reduced at 54% of predicted. IMPRESSION: These pulmonary function studies demonstrate the presence of a mild restrictive ventilatory impairment with an associated moderate reduction in diffusing capacity. 08/16/18700 <Electronically signed by Kieran Diop DO> Date Kieran Diop DO CC: Baldemar Brink MD; Zach Castillo MD Date Dictated: 08/16/18657 Date Transcribed: 08/16/18657 Script Writer: JOSE Signed ECHO, COMPLETE W/ Observed: 08/14/2018 Status: F Source: [place] CONTRAST 7:03 PM [facility] [place] [facility] Cardiovascular Services [address] [place] [address] Echo Complete W/ Contrast 08/14/18 09 MR#: [id number] Acct: [id number] Name: ARMAAN GUTHRIE Rep #: [id number] : 1955 63 From: Zach Castillo MD Attending Dr: Zach Castillo MD Status: REG CLI Ordering Dr: Zach Castillo MD Date: 08/14/18 Location: [facility] Sex: M C Admitted: Reason For Study: AFIB Procedure This was a 2D Doppler, Color Flow transthoracic echocardiogram. The study was technically difficult. Contrast injection was performed. Exam performed in department. Left Ventricle Normal LV size. Mild concentric left ventricular hypertrophy. Left ventricular systolic function is normal. The estimated ejection fraction is 65 %. Transmitral doppler flow suggestive of impaired relaxation of left ventricle. No regional wall motion abnormalities noted. Right Ventricle Normal RV size. Normal systolic function. Atria The left atrium is moderately enlarged. Normal right atrium. No doppler evidence for ASD. Mitral Valve There is no mitral annular calcification. Normal mitral valve. Mild (1+) mitral valve insufficiency. Tricuspid Valve Normal tricuspid valve. Mild tricuspid valve insufficiency. Right ventricular systolic pressure estimated to be 45 mmHg. Aortic Valve Trisinus/trileaflet aortic valve. Mild focal aortic valve calcification. Mild (1+) aortic valve insufficiency. Pulmonic Valve The pulmonic valve is not well visualized. Trivial pulmonic valve insufficiency. Great Vessels Normal sized aortic root. Pericardium/Pleural No pericardial effusion. Medication 22 gauge I.V. with prn adaptor inserted into right arm. Diluted definity 4ml given slow IV push to enhance endocardial definition. MMode/2D Measurements AND Calculations LVIDd: 4.7 cm IVSd: 1.4 cm Ao root diam: 3.6 cm LVIDs: 3.3 cm LVPWd: 1.4 cm RVDd: 3.9 cm FS: 29.1 % LAV(MOD-bp): 103.2 ml EDV(MOD-sp4): 164.4 ml EDV(MOD-sp2): 120.3 ml LAV(MOD-bp) Indexed: 41.1 ml/m2 ESV(MOD-sp4): 52.8 ml EF(MOD-sp2): 64.6 % LAV(MOD-sp2): 91.7 ml EF(MOD-sp4): 67.9 % LAV(MOD-sp4): 115.9 ml SV(MOD-sp4): 111.6 ml SV(MOD-sp2): 77.7 ml LA A4 area: 32.8 cm2 LA dimension(2D): 4.8 cm RA A4 area: 16.5 cm2 Time Measurements MV dec time: 0.35 sec Doppler Measurements AND Calculations MV E max antonella: 77.4 cm/sec Lat Peak E' Antonella: 8.4 cm/sec Med Peak E' Antonella: 5.4 cm/sec MV A max antonella: 112.7 cm/sec E/E' lat: 9.2 E/E' med: 14.3 MV E/A: 0.69 AI max antonella: 344.9 cm/sec LV V1 max: 127.6 cm/sec PA V2 max: 101.5 cm/sec AI max P.6 mmHg LV V1 max P.5 mmHg AI dec slope: 177.1 cm/sec2 AI P1/2t: 570.4 msec TR max antonella: 325.1 cm/sec TR max P.3 mmHg Interpretation Summary The study was technically difficult. Contrast injection was performed. Left ventricular systolic function is normal. The estimated ejection fraction is 65 %. Mild concentric left ventricular hypertrophy. The left atrium is moderately enlarged. Mild (1+) mitral valve insufficiency. Mild tricuspid valve insufficiency. Mild focal aortic valve calcification. Mild (1+) aortic valve insufficiency. Trivial pulmonic valve insufficiency. Right ventricular systolic pressure estimated to be 45 mmHg. Transmitral doppler flow suggestive of impaired relaxation of left ventricle Ordering Physician: Zach Castillo Referring Physician: BALDEMAR BRINK Performed By: Zuleima Villalpando, EMMA, RVT 08/14/181901 Date Zach Castillo MD CC: Baldemar Brink MD; Zach Castillo MD Date Dictated: 08/14/18900 Date Transcribed: 08/14/181901 Script Writer: Signed BASIC METABOLIC Collected: 08/14/2018 Status: F Source: [place] PROFILE (BMP) 10:26 AM [facility] [place] TYPE CODE TESTS RESULT OUT OF RANGE REFERENCE UNITS LAB L501.0100 74-106 mg/dL Normal GLU 106 Result Comment: Fasting Glucose result from 100 to 125 mg/dL suggests IMPAIRED HOMEOSTASIS per A.D.A. criteria. Please note revised GLUCOSE reference range effective 2017. LAB L501.1000 7-18 mg/dL High BUN 21 LAB L501.1100 0.70-1.30 mg/dL High CREAT,SERUM 1.59 Result Comment: The validity of the calculated GFR AND GFRAA in patients over 70 years has not been determined. Clinical correlation is essential. LAB L501.1110 >60 mL/min Low EST GFR 47 Result Comment: Non- GFR Calc LAB L501.1115 >60 mL/min Low EST GFR - AA 57 Result Comment: GFR Calc LAB L501.1300 10-20 RATIO Normal BUN/CRE 13.2 LAB L501.2200 8.5-10.1 mg/dL Low CA 8.0 LAB L501.5300 136-145 mmol/L NA Normal 138 LAB L501.5600 3.5-5.1 mmol/L K Normal 3.6 LAB L501.5900 98-107 mmol/L CL Normal 102 LAB L501.6100 21.0-32.0 mmol/L Normal CO2 28.0 LAB L501.6200 5-15 Normal GAP 8 Performed By: #### L500.2500, L500.3400, L500.4100 #### [facility] [address] [place], [place], [address] LIVER PROFILE Collected: 08/14/2018 Status: F Source: [place] 10:26 AM [facility] [place] TYPE CODE TESTS RESULT OUT OF RANGE REFERENCE UNITS LAB L501.1500 6.4-8.2 g/dL Normal T PROT 6.9 LAB L501.1800 3.2-5.0 g/dL Low ALB 2.8 LAB L501.1950 2.2-4.2 g/dL Normal GLOB 4.1 LAB L501.4100 15-37 U/L High AST 47 LAB L501.4305 45-117 U/L High ALK P 180 LAB L501.4405 16-61 U/L Normal ALT 35 LAB L501.4600 0.20-1.00 mg/dL High T BILI 1.50 LAB L501.4700 0.00-0.30 mg/dL High D BILI 0.52 Performed By: #### L500.2500, L500.3400, L500.4100 #### [facility] [address] [place], [address] LIPID PROFILE Collected: 08/14/2018 Status: F Source: [place] 10:26 AM [facility] [place] TYPE CODE TESTS RESULT OUT OF RANGE REFERENCE UNITS LAB L501.4900 200 mg/dL Normal CHOL 119 Result Comment: <200 mg/dL Desirable 200-240 mg/dL Borderline >240 mg/dL High Risk LAB L501.5000 mg/dL Normal TRIG 99 Result Comment: The drugs N-Acetylcysteine and Metamizole may falsely depress this assay. Serum Triglycerides Reference Interval Normal <150 mg/dL Borderline high 150 - 199 mg/dL High 200 - 499 mg/dL Very High > or = 500 mg/dL LAB L501.6400 mg/dL Low HDL 39 Result Comment: The drugs N-Acetylcysteine and Metamizole may falsely depress this assay. Reference Range HDL <40 mg/dL Low HDL Cholesterol HDL >or= 60 mg/dL High HDL Cholesterol LAB L501.6500 0-130 mg/dL Normal LDL 60 LAB L501.6600 5-40 mg/dL Normal VLDL 20 Performed By: #### L500.2500, L500.3400, L500.4100 #### [facility] [address] [place], [address] EMERGENCY DEPARTMENT Observed: 08/13/2018 Status: F Source: [place] SUMMARY 6:42 AM [facility] [place] [facility] Medical Records Department [address] [place] [address] Emergency Department Summary 08/13/18 0603 MR#: [id number] Acct: [id number] Name: ARMAAN GUTHRIE Rep #: [id number] : 1955 63 From: Zach Dallas MD PCP: Baldemar Brink MD Status: DEP ER - ER Visit Summary Date of Service: 08/13/18 Chief Complaint: Shortness of breath History of Present Illness: The patient is a 63 M who is presenting with shortness of breath for the past few weeks, his main worry is worsening edema in his lower extremities. No fever or chills. No cough or congestion. He tells me he has gained 30 pounds in the last few months. He also has left thumb injury after crush injury which she wants me to check out for him. Physical Examination: Patient walked into the emergency department in no distress, he is sitting in the room quite conversive in no apparent distress Moist mucous membranes, no obvious facial deformity No C-spine tenderness supple neck. Regular rate and rhythm without any obvious murmurs Clear lungs bilaterally speaking in full sentences without any obvious respiratory distress Abdomen soft and nontender no guarding or rebound Moves all extremities without any difficulty he does have significant bilateral lower extremity edema which is symmetric. There is a contusion over the left thumb distally with nail involvement but no subungual hematoma Skin does not show any obvious rashes or lesions, no trauma. Alert oriented 3 with no gross focal deficit Emergency Department Course and Treatment: Patient does not have any evidence of CHF, this is peripheral edema his PCP had just increased his Lasix yesterday. I reassured him I do believe he likely needs to wear some stockings. He is comfortable oxygenating well. He will be discharged in stable condition His thumb x-ray shows no fracture. Disposition: Discharge stable condition Impression: Bilateral lower extremity edema Finger contusion This note was generated with [employer] dictation software. It may contain incorrect words, spelling, and punctuation that were not noted in review of the chart prior to signing ED Disposition - Plan for ED Patient: Disposition: Home or Assisted Living Chief Complaint: General Illness Instructions: ED Leg Swelling Bilateral Referrals: Baldemar Brink MD [Primary Care Provider] - 3-5 Days What to do if you have Problems For any increased pain, shortness of breath, bleeding, nausea or vomiting, chest pain, or any unexpected problems, contact your Primary Care Provider. Call [facility] ([phone]) or report to the closest Emergency Room. Call 911 if necessary. 08/13/18 0642 <Electronically signed by Zach Dallas MD> Date Zach Dallas MD Cosigner Signature (If Indicated): Date CC: Baldemar Brink MD DISCHARGE INSTRUCTION Observed: 08/13/2018 Status: F Source: [place] 6:14 AM [facility] Medical Records Department [address] [place] [address] Discharge Instruction 08/13/18612 MR#: [id number] Acct: [id number] Name: ARMAAN GUTHRIE Rep #: [id number] : 1955 63 From: Zach Dallas MD PCP: Baldemar Brink MD Status: REG ER ED Disposition - Plan for ED Patient: Disposition: Home or Assisted Living Chief Complaint: General Illness Instructions: ED Leg Swelling Bilateral Referrals: Baldemar Brink MD [Primary Care Provider] - 3-5 Days What to do if you have Problems For any increased pain, shortness of breath, bleeding, nausea or vomiting, chest pain, or any unexpected problems, contact your Primary Care Provider. Call [facility] ([phone]) or report to the closest Emergency Room. Call 911 if necessary. 08/13/18613 <Electronically signed by Zach Dallas MD> Date Zach Dallas MD Cosigner Signature (If Indicated): Date CC: Baldemar Brink MD FINGER(S) MIN 2 VIEWS Observed: 08/13/2018 Status: F Source: [place] 6:06 AM [facility] Imaging Services [address] [place] [address] Finger(s) Min 2 Views MR#: [id number] Acct: [id number] Name: ARMAAN GUTHRIE Rep #: [id number] : 1955 M 63 From: Nneka Farfan MD PCP: Baldemar Brink MD Status: DEP ER Study: Finger(s) Min 2 Views Date of Exam: 08/13/18 Exam# [id number] Ordering Dr: Zach Dallas MD STUDY: X-RAY - LEFT HAND, ATTENTION FIRST FINGER REASON FOR EXAM: Male, 63 years old. Trauma TECHNIQUE: 3 view(s) of the finger were obtained. COMPARISON: None. FINDINGS: There is soft tissue swelling. No radiopaque foreign body. Degenerative changes at the first CMC joint. No acute fracture. No dislocation. RAD/Finger(s) Min 2 Views IMPRESSION: Soft tissue swelling. No acute fracture. Electronically Signed: Nneka Farfan, at 6:53 EST Tel , Service support , CC: Baldemar Brink MD; Zach Dallas MD Script Writer: Signed CHEST 1 VIEW Observed: 08/13/2018 Status: F Source: [place] (PORTABLE) 4:55 AM [facility] [place] [facility] Imaging Services [address] [place] [address] Chest 1 View (Portable) MR#: [id number] Acct: [id number] Name: ARMAAN GUTHRIE Rep #: [id number] : 1955 M 63 From: Nneka Farfan MD PCP: Baldemar Brink MD Status: REG ER Study: Chest 1 View (Portable) Date of Exam: 08/13/18 Exam# [id number] Ordering Dr: Zach Dallas MD STUDY: X-RAY CHEST REASON FOR EXAM: Male, 63 years old. Shortness of breath TECHNIQUE: Single frontal view of the chest. COMPARISON: May 04, 2018. FINDINGS: Chronic lung changes. No focal consolidation. No pneumothorax. No pleural effusion. Nonspecific elevation right hemidiaphragm. Cardiomegaly. Normal mediastinum and annamarie. Normal visualized pulmonary arteries. Normal visualized aortic arch and descending thoracic aorta. There are diffuse degenerative changes of the visualized thoracic spine. Normal visualized ribs, clavicles, and shoulders. There is no demonstrated abnormality of the visualized soft tissue structures of the upper abdomen. RAD/Chest 1 View (Portable) IMPRESSION: Cardiomegaly. No acute cardiopulmonary disease. No significant interval change. Electronically Signed: Nneka Farfan, at 5:35 EST Tel , Service support , CC: Baldemar Brink MD; Zach Dallas MD Script Writer: Signed CBC W/DIFF, AUTOMATED Collected: 08/13/2018 Status: F Source: [place] 4:45 AM [facility] [place] TYPE CODE TESTS RESULT OUT OF RANGE REFERENCE UNITS LAB L100.1000 4.4-11.0 K/mm3 Low WBC 4.3 LAB L100.1200 4.6-6.2 M/mm3 Low RBC 4.11 LAB L100.1300 13.0-16.5 g/dl Low HGB 12.8 LAB L100.1400 40-54 % Low HCT 39.6 LAB L100.1500 80-94 fL High MCV 96.4 LAB L100.1600 27.0-32.0 pg Normal MCH 31.1 LAB L100.1700 32-36 g/gl Normal MCHC 32.3 LAB L100.1810 11.6-14.6 % Normal RDW CV 14.6 LAB L100.1820 35.1-43.9 fl High RDW SD 49.8 LAB L100.1900 150-450 K/mm3 Normal PLT 154 LAB L100.2000 6.2-12.0 fl Normal MPV 9.9 LAB L100.2100 47-70 % Low NEUT% 37.2 LAB L100.2200 19-41 % High LY% 45.0 LAB L100.2300 0-10 % High MONO% 13.2 LAB L100.2400 0-5 % Normal EO% 3.9 LAB L100.2500 0-1 % Normal BASO% 0.5 LAB L100.2550 0.0-0.9 % Normal IM GRAN % 0.200 Result Comment: IG% - Immature Granulocytes (promyelocytes, myelocytes and metamyelocytes) > 1% indicates that a LEFT SHIFT is Present. LAB L100.2620 2.0-7.7 X10 3/uL Low Absolute Neut 1.6 LAB L100.2720 0.83-4.51 X10 3/ul Normal Absolute Lymph 1.94 Performed By: #### L100.0100 #### [facility] [address] [place], [address] COMPREHENSIVE METABOLIC Collected: 08/13/2018 Status: F Source: [facility] 4:45 AM [facility] [place] TYPE CODE TESTS RESULT OUT OF RANGE REFERENCE UNITS LAB L501.0100 74-106 mg/dL Normal GLU 102 Result Comment: Fasting Glucose result from 100 to 125 mg/dL suggests IMPAIRED HOMEOSTASIS per A.D.A. criteria. Please note revised GLUCOSE reference range effective 2017. LAB L501.1000 7-18 mg/dL High BUN 22 LAB L501.1100 0.70-1.30 mg/dL High CREAT,SERUM 1.39 Result Comment: The validity of the calculated GFR AND GFRAA in patients over 70 years has not been determined. Clinical correlation is essential. LAB L501.1110 >60 mL/min Low EST GFR 55 Result Comment: Non- GFR Calc LAB L501.1115 >60 mL/min Normal EST GFR - AA 67 Result Comment: GFR Calc LAB L501.1255 ml/min Normal Estimated CRCL 63.07 LAB L501.1300 10-20 RATIO Normal BUN/CRE 15.8 LAB L501.1500 6.4-8. g/dL Normal 2 T PROT 6.8 LAB L501.1800 3.2-5. g/dL Low 0 ALB 2.7 LAB L501.1950 2.2-4. g/dL Normal 2 GLOB 4.1 LAB L501.2000 0.9-2. RATIO Low 4 A/G 0.7 LAB L501.2200 8.5-10 mg/dL Low .1 CA 7.6 LAB L501.4100 15-37 U/L High AST 64 LAB L501.4305 45-117 U/L High ALK P 234 LAB L501.4405 16-61 U/L Normal ALT 41 LAB L501.4600 0.20-1 mg/dL Normal .00 T BILI 0.90 LAB L501.5300 136-14 mmol/L Normal 5 NA 142 LAB L501.5600 3.5-5. mmol/L Normal 1 K 4.3 LAB L501.5900 98-107 mmol/L High CL 108 LAB L501.6100 21.0-3 mmol/L Normal 2.0 CO2 25.0 LAB L501.6200 5-15 Normal GAP 9 Performed By: #### L500.4050, L501.4010 #### [facility] [address] [place], [place], [address] TROPONIN-I Collected: 08/13/2018 Status: F Source: [place] 4:45 AM [facility] [place] TYPE CODE TESTS RESULT OUT OF RANGE REFERENCE UNITS LAB L501.4010 <0.045 ng/mL Normal 0.028 TROPONIN-I Result Comment: TROPONIN-I EXPECTED VALUES <0.045 Negative 0.045 - 0.590 Consistent with Cardiac Damage > OR = 0.600 Critical Value Not every elevated troponin is indicative of SD. These values should be used with clinical judgement in examining the patient's clinical picture for diagnosis. To establish a diagnosis of SD versus myocardial injury, there must be a demonstrated rise and/or fall in the troponin values, in addition to ischemic symptoms, EKG changes, new regional wall motion abnormality, and/or angiographical evidence. PLEASE NOTE: REFERENCE RANGES EDITED 18 Performed By: #### L500.4050, L501.4010 #### [facility] [address] [place], [place], [address] CARDIOLOGY VISIT Observed: 07/31/2018 Status: F Source: [place] REPORT 3:09 PM [facility] [place] [facility] [address] [place] [address] OFFICE VISIT Date of Service: 07/31/18 MR#: [id number] Acct: [id number] Name: ARMAAN GUTHRIE Rep #: [id number] : 1955 Provider: Zach Castillo MD Age/Sex: 62/M Location[place] [facility] [place]: Signed HPI HPI Details: ARMAAN GUTHRIE, is a 62 M who presents to the office today for outpatient cardiovascular follow-up of his history which has included over time his paroxysmal atrial fibrillation, a non-CAD related cardiomyopathy, concerns of previous CHF with preserved ejection fraction, CAD-previously reported as minimal to mild, superimposed upon a history of hypertension, renal insufficiency, obstructive sleep apnea, and thromboembolic disease with DVT. Since his last visit he readily admits he has not been taking his medications as prescribed. He states he has not been taking his anticoagulant therapy. He notes that he has had no ongoing chest discomfort. He has not noted palpitations. His main concern is somewhat with respect to being more short of breath and dyspneic with activity as well as somewhat more tired and fatigued. There has been no near syncope or syncope. He did have an ECG in the office today. He was noted to be in sinus rhythm with a leftward axis and poor R wave progression. He had no acute ECG changes. It is noted on examination he appeared somewhat flushed today. Intake Vital Signs07/31/18 Height 6 ft 07/31/18 Weight: 298 lb 07/31/18 Body Mass Index (BMI) 40.4 07/31/18 Blood Pressure 148/7 H 07/31/18 Blood Pressure Location Lt brachial Intake Visit Reasons: GOMEZ, weakness, fatigue x 1 mo, worsening Bank Officer Required: No Accompanied by: none Is patient in pain?: No Allergies cefuroxime axetil [From Ceftin] Allergy (Verified 05/08/18 09:26) Rash hydrocodone bitartrate [From Vicodin] Allergy (Verified 05/08/18 09:26) Rash Penicillins Allergy (Verified 05/08/18 09:26) Hives carvedilol [From Coreg] Adverse Reaction (Verified 05/08/18 09:26) Other lisinopril Adverse Reaction (Verified 05/08/18 09:26) Other Medications aspirin 81 mg tablet,delayed release 81 mg PO QDAY #30 tab 10/07/17 [Rx Confirmed 07/31/18] Acetaminophen [Tylenol] 500 - 1,000 mg PO Q6H PRN PRN 11/19/17 [History Confirmed 07/31/18] Metoprolol Tartrate [Lopressor (beta abram)] 100 mg PO BID 11/19/17 [History Confirmed 07/31/18] Rivaroxaban [Xarelto] 20 mg PO QDAY 11/19/17 [History Confirmed 05/08/18] furosemide 40 mg tablet 40 mg PO QDAY #90 tab 01/16/18 [Rx Confirmed 07/31/18] pravastatin 20 mg tablet 20 mg PO QHS #30 tab 04/03/18 [Rx Confirmed 07/31/18] Sildenafil Citrate [Viagra] 100 mg PO PRN PRN 05/05/18 [History Confirmed 07/31/18] nitroglycerin 0.4 mg sublingual tablet 0.4 mg SUBLINGUAL Q5- 15M PRN #25 tab 05/08/18 [Rx Confirmed 07/31/18] amiodarone 200 mg tablet 100 mg PO DAILY tab 07/31/18 [History Confirmed 07/31/18] amlodipine 10 mg tablet 10 mg PO DAILY #90 tab 07/31/18 [Rx Confirmed 07/31/18] PFSH Medical History Essential hypertension (Chronic) History of congestive heart failure (Chronic) History of cardiomyopathy (Chronic) History of atrial fibrillation (Chronic) History of cardioversion (Resolved 08/2017) History of echocardiogram (Resolved 08/2017) History of echocardiogram (Acute 01/2013) Erectile dysfunction (Chronic) Obesity (BMI 30-39.9) (Chronic) ZAID (obstructive sleep apnea) (Chronic) DVT (deep venous thrombosis) (Chronic) Renal insufficiency (Acute) Surgical History H/O cardiac catheterization (Resolved 06/2009) History of detached retina repair (Resolved) History of left inguinal hernia repair (Resolved) Family History Mother , CABG @ 50yrs, age 61 CAD (coronary artery disease) Social History Smoking Status: Never smoker alcohol intake: never substance use type: does not use caffeine: No what type of physical activity do you participate in: other details: PT frequency: 3-4 times per week duration: 15-30 minutes/day seatbelt use: always do you feel safe at home: Yes ROS Const Const: Positive for fatigue; negative for weakness, night sweats, excessive sweating, frequent falls, headache(s) or daytime sleepiness Eyes Eyes: Negative for loss of peripheral vision, transient loss of vision, blind spots, double vision or blurry vision ENT ENT: Negative for headache(s), dizziness, balance problems, Nosebleed/epistaxis, tongue swelling or lip swelling Cardio Chest Pain: No Palpitations: No Edema: Bilateral Muscle aches with walking: None Resp Respiratory: Positive for SOB with activity; negative for SOB at rest, SOB orthopnea\SOB lying down, Cough or paroxysmal nocturnal dyspnea GI GI: Negative nausea, vomiting, heartburn, black,tarry stools or bright, red blood in stools : Negative for hematuria Musc Musc: Negative for balance problems, muscle aches/ myalgia, muscle weakness or joint pain Skin Skin: Negative non-healing lesions, unusual bruising or rash Neuro Neuro: Negative for weakness, frequent falls, headache(s), double vision, dizziness, lightheadedness, orthostatic symptoms, blurry vision or lack of coordination Moses Hematologic/Lymphatic: Negative for easy bruising or easy bleeding Endo Endo: Positive for fatigue; negative for excessive sweating, cold intolerance, heat intolerance, increased thirst/drinking or hair loss Psych Psych: Negative for anxiety or depression Allergy Allergy/Immunology: Negative for throat swelling, Negative for tongue swelling, Negative for hives, Negative for rash, Negative for lip swelling Cardiology Exam Const Appearance: cooperative, comfortable, no acute distress, well developed, well groomed and other (Flushed) Nutritional Appearance: obese Orientation: alert, awake and oriented x3 Head Head: normal to inspection, normocephalic and atraumatic Ears: hearing grossly normal bilaterally Nose: external nose normal Face and Sinus: face symmetric Mouth: oral mucosae normal Eyes Eyelids: eyelids normal Conjunctivae: conjunctivae normal Pupils: PERRL EOM: EOM intact bilaterally Neck Neck: normal visual inspection and full ROM Carotids: normal carotid upstroke Chest Chest inspection: normal inspection of the chest and symmetric chest movement Auscultation: Bilateral: Clear to Auscultation Cardio Palpation: normal PMI Rate: regular rate Rhythm: regular rhythm Heart sounds: S1 normal and S2 normal GI GI: obese, normal to inspection, bowel sounds present and soft Neuro General: alert, awake, oriented x3 and moves all extremities Skin Skin: other (Flushed appearing) Extremities Pulses: Normal: Right Radial Pulse, Left Radial Pulse Lower Extremity Edema: None: Bilateral Psych Psychological: normal affect Supplemental Info Transthoracic echocardiogram: 09/03/2017 Left ventricle normal with an LVEF of 65% Moderate left atrial enlargement Mild to moderate MR Mild TR Trivial AR/NV Estimated RV systolic pressure of 38 mmHg Stress test: 05/05/2018 Procedure: Pharmacologic stress nuclear imaging study Indications: Chest pain; atrial fibrillation; nonsustained E related cardiomyopathy Consent: Per the patient Procedure: The patient underwent pharmacologic (Regadenoson) evaluation with a peak heart rate of 80 beats per minute (50 predicted maximal heart rate) and a peak blood pressure of 162/88 mmHg. The baseline ECG demonstrated sinus rhythm: IVCD. The peak pharmacologic ECG demonstrated no obvious ECG changes. There was an occasional PVC post infusion. There was no complaint of chest discomfort during pharmacologic infusion or recovery. The examination was discontinued secondary to completion of protocol. Impression: 1. Pharmacologic (Regadenoson) evaluation 2. Peak pharmacologic ECG with no obvious ECG changes. 3. There was an occasional PVC post infusion 4. Nuclear images pending Myocardial perfusion imaging study: Technique: The patient was injected with 14.8 millicuries of technetium 99m Cardiolite and subsequently rest SPECT Cardiolite nuclear imaging was obtained in the horizontal long, vertical long, and short axis views. The patient underwent pharmacologic (Regadenoson) evaluation with a peak heart rate of 80 beats per minute (50 % percent predicted maximal heart rate) and a peak blood pressure of 162/88 mmHg. The patient was injected with 45 millicuries of technetium 99m Cardiolite and subsequently stress SPECT Cardiolite nuclear imaging was obtained in the horizontal long, vertical long, and short axis views. A gated Cardiolite study at peak stress was obtained. Interpretation: Rest and stress SPECT Cardiolite nuclear imaging status post realignment, normalization, and attenuation correction demonstrate an area of diminished absence of tracer uptake in the apical segments without significant change between rest and stress. There is diminished end systolic thickening and brightening in the aforementioned areas. The reported LVEF is 59 % Impression: 1. Rest and stress SPECT Cardiolite nuclear imaging demonstrate an area of diminished absence of myocardial perfusion/tracer uptake in portions of the apical areas without significant change between rest and stress appearing compatible with an area of previous myocardial injury/infarction with no myocardial perfusion changes consider diagnostic for associated stress-induced myocardial ischemia. 2. The gated Cardiolite study reports an LVEF of 59 %. Cardiac cath: 06/28/2009: [facility]: BREANN Gerardo The patient was found to have minimal coronary plaque, and no significant lesions. His chest pain is felt to be noncardiac, and his stress testing true negative. His coronaries are large in diameter. No renal artery stenosis was observed, and his hypertension appears to be essential. RECOMMENDATIONS Continue aggressive risk factor modification, and medical treatment for his hypertension. Assessment AND Plan 1. Non-ischemic cardiomyopathy I42.8 Plan He does have a history of a nonischemic cardia myopathy. Based on his most recent noninvasive testing his overall LV systolic function remains preserved. Thus if he had any evidence of recurrent acute on chronic CHF it would be CHF with preserved ejection fraction. At the present time he was asked to continue risk factor modification and medical management. His medications will be adjusted as deemed appropriate. 2. History of congestive heart failure Z86.79 Plan He has no symptoms of acute on chronic CHF at this time. It appeared there were concerns when he had atrial dysrhythmias as to having these type of symptoms. At the moment he will continue medical management with adjustment as deemed appropriate. Orders Orders: 3. History of atrial fibrillation Z86.79 Plan He remains in sinus rhythm at this time. His medications will be adjusted. He will continue antiarrhythmic therapy although he will decrease his amiodarone dose to 100 mg a day. He was asked to reinitiate his anticoagulant therapy. Orders Orders: 4. Essential hypertension I10 Plan He will also adjust his antihypertensive therapy. He will increase his amlodipine to 10 mg/day. 5. Long-term use of high-risk medication Z79.899 Plan Based upon being on amiodarone therapy he will have follow- up. This will include thyroid function studies, hepatic studies, and PFT. There is also note that he appears to be somewhat flushed today. This does raise a question as to whether or not this may be related to his medication including his amiodarone therapy with photosensitivity. Thus at the present time he will decrease his amiodarone to 100 mg a day. Orders Orders: Plan Detail Other Medications New: Changed: Discontinued: Additional Comments He will be scheduled for future outpatient cardiovascular follow-up visit. Thank you for allowing me to participate in the care of your patient. Please don't hesitate to call if any issues arise. This note was generated using a voice recognition system and there may be incorrect words, spelling or punctuation that were not noted when reviewing the office note prior to saving. Follow Up 6 Months (PFM) Coding Level of Care Code Off vis,est,level 4 Diagnoses Non-ischemic cardiomyopathy I42.8 History of congestive heart failure Z86.79 History of atrial fibrillation Z86.79 Essential hypertension I10 Long-term use of high-risk medication Z79.899 Coding Level of Care Code Off vis,est,level 4 Diagnoses Non-ischemic cardiomyopathy I42.8 History of congestive heart failure Z86.79 History of atrial fibrillation Z86.79 Essential hypertension I10 Long-term use of high-risk medication Z79.899 07/31/18 1509 <Electronically signed by Zach Castillo MD> Date Zach Castillo MD Cosigner Signature: Date (if applicable) CC: Baldemar Brink MD LIVER PROFILE Collected: 07/31/2018 Status: F Source: [place] 2:52 PM [facility] [place] CODE TESTS RESULT OUT OF RANGE REFERENCE UNITS LAB L501.1500 6.4-8.2 g/dL Normal T PROT 6.9 LAB L501.1800 3.2-5.0 g/dL Low ALB 3.1 LAB L501.1950 2.2-4.2 g/dL Normal GLOB 3.8 LAB L501.4100 15-37 U/L High AST 55 LAB L501.4305 45-117 U/L High ALK P 157 LAB L501.4405 16-61 U/L Normal ALT 40 LAB L501.4600 0.20-1.00 mg/dL High T BILI 1.80 LAB L501.4700 0.00-0.30 mg/dL High D BILI 0.59 Performed By: #### L500.3400, L501.9520, L506.0400 #### [facility] [address] [place], [place], [address] THYROID STIM HORMONE Collected: 07/31/2018 Status: F Source: [place] (TSH) 2:52 PM [facility] [place] TYPE CODE TESTS RESULT OUT OF RANGE REFERENCE UNITS LAB L501.9520 0.358-3.74 uIU/mL Normal TSH 1.49 Performed By: #### L500.3400, L501.9520, L506.0400 #### [facility] [address] [place], [address] T4 FREE DIRECT Collected: 07/31/2018 Status: F Source: [place] 2:52 PM [facility] [place] TYPE CODE TESTS RESULT OUT OF REFERENCE UNITS RANGE LAB L506.0400 0.76-1.46 ng/dL High T4 FREE 1.69 DIRECT Performed By: #### L500.3400, L501.9520, L506.0400 #### [facility] [address] [facility] [place], [place], [address] HEMOGRAM W/ AUTODIFF Collected: 07/21/2018 Status: F Source: [facility] 12:28 PM SYSTEM REPOSITORY TYPE CODE TESTS RESULT OUT OF REFERENCE UNITS RANGE LAB IWBC 3.6-10.7 10*3/uL WBC Normal 9.6 LAB RBC 4.40-5.90 10*6/uL Low RBC 4.28 LAB HGB 13.0-18.0 g/dL Hemoglobin Normal 13.6 LAB HCT 40.0-52.0 % Hematocrit Normal 40.1 LAB MCV 80.0-98.0 fL MCV Normal 93.7 LAB MCH 26.0-34.0 pg MCH Normal 31.7 LAB MCHC 32.0-36.0 % MCHC Normal 33.9 LAB RDW 11.5-14.5 % RDW High 14.7 LAB PLT 140-440 10*3/uL Low Platelet 130 LAB MPV 7.4-10.4 fL MPV Normal 9.3 LAB GRAN% 40.0-80.0 % Granulocytes High 82.3 LAB LYMP% 20.0-40.0 % Low Lymphocytes 12.5 LAB MONO% 2.0-10.0 % Monocytes Normal 5.1 LAB EOS% 1.0-6.0 % Low Eosinophils 0.0 LAB BAS% 0.0-2.0 % Basophils Normal 0.1 LAB ANC 1.8-7.0 10*3/uL Abs High Neutrophile Cnt 7.9 LAB ALC 1.0-4.3 10*3/uL Abs Lymph Cnt Normal 1.2 LAB AMC 0.0-0.8 10*3/uL Abs Monocyte Normal Cnt 0.5 LAB AEC 0.0-0.5 10*3/uL Abs Eosin Cnt Normal 0.0 LAB ABC 0.0-0.2 10*3/uL Abs Baso Cnt Normal 0.0 Performed By: #### HEMDF, LIPA4, CMP3, TSH5 #### [facility] [address] [place] [phone] LIPASE Collected: 07/21/2018 Status: F Source: [employer] 12:28 PM SYSTEM REPOSITORY TYPE CODE TESTS RESULT OUT OF RANGE REFERENCE UNITS LAB LIPA4 23-300 U/L Normal Lipase 50 Performed By: #### HEMDF, LIPA4, CMP3, TSH5 #### [facility] [address] [place] [phone] COMP METABOLIC PANEL Collected: 07/21/2018 Status: F Source: [employer] 12:28 PM SYSTEM REPOSITORY TYPE CODE TESTS RESULT OUT OF RANGE REFERENCE UNITS LAB NA3 137-145 mmol/L Sodium Normal 141 LAB K3 3.5-5.1 mmol/L Normal Potassium 4.7 LAB CL3 98-107 mmol/L High Chloride 110 LAB CO23 22-30 mmol/L Carbon Normal Dioxide 24 LAB ANIN3 NA Anion Gap 7 LAB GLUC3 70-100 mg/dL Glucose Normal 99 LAB BUN3 7-20 mg/dL High Urea Nitrogen 22 LAB CRET3 0.52-1.25 mg/dL Normal Creatinine 1.02 LAB GF3BR >60 mL/min eGFR > 60.0 LAB GF3WR >60 mL/min eGFR OTHER > 60.0 Result Comment: Source- MDRD equation with creatinine calibration to IDMS(NKDEP) eGFR not recommended for drug dose adjustment LAB CA3 8.4-10.4 mg/dL Calcium Normal 9.0 LAB ALB3 3.5-5.0 g/dL Low Albumin, Serum 3.2 LAB TP3 6.3-8.2 g/dL Total Protein Normal 6.9 LAB BILT3 0.2-1.3 mg/dL High Bilirubin,Total 1.4 LAB ALKP3 38-126 U/L High Alkaline Phosphatase 161 LAB ALT3 13-69 U/L ALT (SGPT) Normal 37 LAB AST3 15-46 U/L AST (SGOT) Normal 35 Performed By: #### HEMDF, LIPA4, CMP3, TSH5 #### [facility] [address] [place] [phone] THYROID STIM. Collected: 07/21/2018 Status: F Source: [employer] [facility] 12:28 PM SYSTEM REPOSITORY TYPE CODE TESTS RESULT OUT OF RANGE REFERENCE UNITS LAB TSH5 0.465-4.680 u[IU]/mL Normal Thyroid Stim. 0.875 Hormone Performed By: #### HEMDF, LIPA4, CMP3, TSH5 #### [facility] [address] [place] [phone] TTG, IGA Collected: 07/21/2018 Status: F Source: [employer] 12:28 PM SYSTEM REPOSITORY TYPE CODE TESTS RESULT OUT OF REFERENCE UNITS RANGE LAB TTGAR 0-3 U/mL TTG, IgA 1 Result Comment: INTERPRETIVE INFORMATION: Tissue Transglutaminase (tTG) Antibody, IgA 3 U/mL or less: Negative 4-10 U/mL: Weak Positive 11 U/mL or greater: Positive Presence of the tissue transglutaminase (tTG) IgA antibody is associated with glutensensitive enteropathies such as celiac disease and dermatitis herpetiformis. tTG IgA antibody concentrations greater than 40 U/mL usually correlate with results of duodenal biopsies consistent with a diagnosis of celiac disease. For antibody concentrations greater or equal to 4 U/mL but less than or equal to 40 U/mL, additional testing for endomysial (CARLA) IgA concentrations may improve the positive predictive value for disease. Performed by [facility], [address] [place] [id number] [email or web address], Winston Velez MD - Lab. Director Performed By: #### TTGA2, TTGG #### The performing lab is in the report. TTG, IGG Collected: 07/21/2018 Status: F Source: [facility] 12:28 PM SYSTEM REPOSITORY TYPE CODE TESTS RESULT OUT OF REFERENCE UNITS RANGE LAB TTGGR 0-5 U/mL TTG, IgG 3 Result Comment: INTERPRETIVE INFORMATION: Tissue Transglutaminase Ab, IgG 5 U/mL or less: ......... Negative 6-9 U/mL: ............... Weak Positive 10 U/mL or greater: ..... Positive The tTG IgG assay may aid in the diagnosis of gluten-sensitivity enteropathy (i.e., celiac disease, dermatitis herpetiformis) in tTG IgA negative patients with confirmed IgA deficiency. A negative tTG IgG test alone does not rule out gluten-sensitive enteropathy. Performed by [facility], [address] [place] [id number] [email or web address], Winston Velez MD - Lab. Director Performed By: #### TTGA2, TTGG #### The performing lab is in the report. PROGRESS Observed: 07/08/2018 Status: COMPLETED Source: [place] 11:34 AM [facility] REPOSITORY HNO ID: [id number] Author: Nneka (Claus) Bhaskar Service: (none) Author Type: Nurse Practitioner Type: Progress Notes Filed: 07/09/2018 8:11 AM Note Text: CC: Patient presents with: Derm Problem: Spot on back, had shingles last year HPI Armaan Guthrie is a 62 year old male who presents today for rash on back x3 weeks with hx of shingles. Patient reports a reddened area to right lower back x3 weeks. Associated symptoms include itching. No treatments attempted. Patient denies any fever, chills, recent illness, travel or exposures. He denies any pain, drainage or spreading of the rash. At the conclusion of our visit patient reported having recent MBS? D/t ongoing cough, where hiatal hernia was noted. Patient has upcoming GI appointment. In the meantime he complains of continued cough, occasional regurgitation of food and clearing his throat often. Denies any abdominal pain or changes in bowel habits. REVIEW OF SYSTEMS General: no fevers, no chills, no recurrent infections and no change in energy Respiratory: no cough, no wheezing, no shortness of breath, no hemoptysis Cardiovascular: no chest pain, no chest pressure, and no swelling Skin: See HPI PAST MEDICAL HISTORY Diagnosis Date - Arrhythmia - Atrial fibrillation (HCC) - Bilateral edema of lower extremity 04/02/2016 - CHF (congestive heart failure) (HCC) - Detached retina 12/26/20142001 he had a surgery done. - Diverticulosis of colon (without mention of hemorrhage) Diverticulosis. 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 - Snoring - SOB (shortness of breath) 04/25/2014 - Social phobia with panic attacks - Stroke (HCC) - Syphilis - TREMOR NEC 07/06/2005 - Unspecified hemorrhoids without mention of complication Hemorrhoids PAST SURGICAL HISTORY Procedure Laterality Date - COLONOSCOP W/ OR W/O [facility] SPEC 10/26/13 Repeat 2023 - COLONOSCOP W/ OR W/O [facility] SPEC 08/11/15 Colonoscopy - COLONOSCOPY 11/27/01 - EGD W/O OR W/BRUSH/WASH 10/21/2014 EGD - HEART SURGERY 2014 cardioversion - HEMORRHOID: RUBBERBAND, SINGLE/MULTIPLE 09/2015 - LAP REPAIR INTIAL INGUINAL HERNIA 07/29/13 right - LAP REPAIR INTIAL INGUINAL HERNIA Left 04/06/2015 - PAST SURGICAL HISTORY OF 09/2001 LEFT EAR DK REPLACE BONE - PAST SURGICAL HISTORY OF 11/2001 REPEAT LEFT EAR DK - PAST SURGICAL HISTORY OF teeth pulled - PAST SURGICAL HISTORY OF 2005 detatched retenia right eye and muscle repair. 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 Rinse mouth after use. aspirin, enteric coated (ASPIRIN, ENTERIC COATED) 81 mg EC tablet Take 81 mg by mouth once daily. amiodarone (PACERONE) 200 mg tablet Take by mouth once daily. rivaroxaban (XARELTO) 20 mg tablet Take 20 mg by mouth daily with dinner. pravastatin (PRAVACHOL) 20 mg tablet Take 20 mg by mouth once daily. oxybutynin (DITROPAN) 5 mg tablet Take 1 tablet by mouth twice daily. metoprolol tartrate, short acting, (LOPRESSOR) 100 mg tablet Take 1 tablet by mouth twice daily. amLODIPine (NORVASC) 5 mg tablet Take 1 tablet by mouth once daily. hydroCHLOROthiazide (HYDRODIURIL, ESIDRIX) 25 mg tablet Take 1 tablet by mouth once daily. cetirizine (ZYRTEC) 10 mg tablet Take 1 tablet by mouth once daily. sildenafil (VIAGRA) 100 mg tablet Take 1 tablet by mouth as needed. FAMILY HISTORY Problem Relation Age of Onset - Coronary Artery Disease Mother CABG - other (anemia) Mother - Cancer Father LUNG - Emphysema Father - other (IBS) Father - other (bipolar) Sister - Diabetes Daughter - Stroke No Family History - Heart Daughter myocarditis - other (Encephalocele) Daughter Social History Substance Use Topics - Smoking status: Never Smoker - Smokeless tobacco: Never Used - Alcohol use No PHYSICAL EXAM BP 118/66 Pulse 73 Temp 36.4 ?C (97.6 ?F) (Temporal Artery) Resp 16 Wt 133.4 kg (294 lb) SpO2 96% BMI 39.87 kg/m? General Appearance: well appearing, in no acute distress, alert Skin: Skin color, texture, turgor normal for age; except isolated area of erythema with few clustered pustules. No deep structures appreciated. No drainage. No pain with palpation. Head: normocephalic, atraumatic Lungs: Lungs clear to auscultation. No wheezing, rhonchi, rales Heart: RRR without murmur, gallop, or rubs. No ectopy AALIYAH/ARB MED PRESCRIBED due on 1975 INFLUENZA(1) due on 06/06/2018 ANNUAL PCP TEAM CHRONIC DISEASE VISIT due on 11/17/2018 BP CONTROLLED (<130/80) due on 03/18/2019 DIABETES SCREEN due on 06/03/2020 COLORECTAL CANCER SCREENING,SEE MODIFIER due on 08/11/2020 LIPID SCREEN due on 12/12/2022 DTAP,TDAP,TD(3 - Tdap) due on 02/19/2026 PROSTATE CANCER SCREENING DISCUSSION Completed HEPATITIS C SCREENING Completed ASSESSMENT/PLAN: 1. Folliculitis - ICD9: 704.8, ICD10: L73.9 (primary diagnosis) - Exam findings inconsistent with diagnosis of shingles, rationale and symptom presentation reviewed with patient - Will begin topical antibiotic treatment - MUPIROCIN 2 % TOPICAL OINTMENT - Follow up in 5-7 days if no symptom improvement, sooner for new or worsening symptoms 2. Gastroesophageal reflux disease, esophagitis presence not specified - ICD9: 530.81, ICD10: K21.9 - Discussed lifestyle modifications including losing weight, limiting caffeine, no meals three hours before sleep and head of bed elevation - Begin treatment with Prilosec 20 mg QD - Follow up with GI as scheduled - OMEPRAZOLE 20 MG CAPSULE,DELAYED RELEASE 3. Need for vaccination - ICD9: V05.9, ICD10: Z23 - INFLUENZA VACCINE QUADRIVALENT AGE 3 YRS PLUS + IM Nneka Denson APRN.CLAUS Prescription instructions reviewed with patient as applicable. Potential red flag symptoms discussed with the patient. Reviewed appropriate action plan to take if red flag symptoms occur. Patient agreeable to treatment plan. CNOV Observed: 07/08/2018 Status: COMPLETED Source: [place] 11:20 AM [facility] REPOSITORY Office Visit (INTMWS) ARMAAN GUTHRIE ([id number]) 1955 M [facility] Date Time Provider Department 07/08/18 11:20 AM NNEKA DENSON ([facility]) INTMWS During your visit today, we recorded the following information about you: Temperature Pulse Respiration Blood pressure 97.6 degrees 73/minute 16/minute 118/66 Weight 133.4 kg Nneka Denson APRN.CNP 07/09/2018 8:11 AM Signed CC: Patient presents with: Derm Problem: Spot on back, had shingles last year HPI Armaan Guthrie is a 62 year old male who presents today for rash on back x3 weeks with hx of shingles. Patient reports a reddened area to right lower back x3 weeks. Associated symptoms include itching. No treatments attempted. Patient denies any fever, chills, recent illness, travel or exposures. He denies any pain, drainage or spreading of the rash. At the conclusion of our visit patient reported having recent MBS? D/t ongoing cough, where hiatal hernia was noted. Patient has upcoming GI appointment. In the meantime he complains of continued cough, occasional regurgitation of food and clearing his throat often. Denies any abdominal pain or changes in bowel habits. REVIEW OF SYSTEMS General: no fevers, no chills, no recurrent infections and no change in energy Respiratory: no cough, no wheezing, no shortness of breath, no hemoptysis Cardiovascular: no chest pain, no chest pressure, and no swelling Skin: See HPI PAST MEDICAL HISTORY Diagnosis Date - Arrhythmia - Atrial fibrillation (HCC) - Bilateral edema of lower extremity 04/02/2016 - CHF (congestive heart failure) (HCC) - Detached retina 12/26/2014 2002 he had a surgery done. - Diverticulosis of colon (without mention of hemorrhage) Diverticulosis. 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 - Snoring - SOB (shortness of breath) 04/25/2014 - Social phobia with panic attacks - Stroke (HCC) - Syphilis - TREMOR NEC 07/06/2005 - Unspecified hemorrhoids without mention of complication Hemorrhoids PAST SURGICAL HISTORY Procedure Laterality Date - COLONOSCOP W/ OR W/O [facility] SPEC 10/26/13 Repeat 2023 - COLONOSCOP W/ OR W/O [facility] SPEC 08/11/15 Colonoscopy - COLONOSCOPY 11/27/01 - EGD W/O OR W/BRUSH/WASH 10/21/2014 EGD - HEART SURGERY HX 2014 cardioversion - HEMORRHOID: RUBBERBAND, SINGLE/MULTIPLE 09/2015 - LAP REPAIR INTIAL INGUINAL HERNIA 07/29/13 right - LAP REPAIR INTIAL INGUINAL HERNIA Left 04/06/2015 - PAST SURGICAL HISTORY OF 09/2001 LEFT EAR DK REPLACE BONE - PAST SURGICAL HISTORY OF 11/2001 REPEAT LEFT EAR DK - PAST SURGICAL HISTORY OF teeth pulled - PAST SURGICAL HISTORY OF 2005 detatched retenia right eye and muscle repair. 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 Rinse mouth after use. aspirin, enteric coated (ASPIRIN, ENTERIC COATED) 81 mg EC tablet Take 81 mg by mouth once daily. amiodarone (PACERONE) 200 mg tablet Take by mouth once daily. rivaroxaban (XARELTO) 20 mg tablet Take 20 mg by mouth daily with dinner. pravastatin (PRAVACHOL) 20 mg tablet Take 20 mg by mouth once daily. oxybutynin (DITROPAN) 5 mg tablet Take 1 tablet by mouth twice daily. metoprolol tartrate, short acting, (LOPRESSOR) 100 mg tablet Take 1 tablet by mouth twice daily. amLODIPine (NORVASC) 5 mg tablet Take 1 tablet by mouth once daily. hydroCHLOROthiazide (HYDRODIURIL, ESIDRIX) 25 mg tablet Take 1 tablet by mouth once daily. cetirizine (ZYRTEC) 10 mg tablet Take 1 tablet by mouth once daily. sildenafil (VIAGRA) 100 mg tablet Take 1 tablet by mouth as needed. FAMILY HISTORY Problem Relation Age of Onset - Coronary Artery Disease Mother CABG - other (anemia) Mother - Cancer Father LUNG - Emphysema Father - other (IBS) Father - other (bipolar) Sister - Diabetes Daughter - Stroke No Family History - Heart Daughter myocarditis - other (Encephalocele) Daughter Social History Substance Use Topics - Smoking status: Never Smoker - Smokeless tobacco: Never Used - Alcohol use No PHYSICAL EXAM BP 118/66 Pulse 73 Temp 36.4 ?C (97.6 ?F) (Temporal Artery) Resp 16 Wt 133.4 kg (294 lb) SpO2 96% BMI 39.87 kg/m? General Appearance: well appearing, in no acute distress, alert Skin: Skin color, texture, turgor normal for age; except isolated area of erythema with few clustered pustules. No deep structures appreciated. No drainage. No pain with palpation. Head: normocephalic, atraumatic Lungs: Lungs clear to auscultation. No wheezing, rhonchi, rales Heart: RRR without murmur, gallop, or rubs. No ectopy AALIYAH/ARB MED PRESCRIBED due on 1975 INFLUENZA(1) due on 06/06/2018 ANNUAL PCP TEAM CHRONIC DISEASE VISIT due on 11/17/2018 BP CONTROLLED (<130/80) due on 03/18/2019 DIABETES SCREEN due on 06/03/2020 COLORECTAL CANCER SCREENING,SEE MODIFIER due on 08/11/2020 LIPID SCREEN due on 12/12/2022 DTAP,TDAP,TD(3 - Tdap) due on 02/19/2026 PROSTATE CANCER SCREENING DISCUSSION Completed HEPATITIS C SCREENING Completed ASSESSMENT/PLAN: 1. Folliculitis - ICD9: 704.8, ICD10: L73.9 (primary diagnosis) - Exam findings inconsistent with diagnosis of shingles, rationale and symptom presentation reviewed with patient - Will begin topical antibiotic treatment - MUPIROCIN 2 % TOPICAL OINTMENT - Follow up in 5-7 days if no symptom improvement, sooner for new or worsening symptoms 2. Gastroesophageal reflux disease, esophagitis presence not specified - ICD9: 530.81, ICD10: K21.9 - Discussed lifestyle modifications including losing weight, limiting caffeine, no meals three hours before sleep and head of bed elevation - Begin treatment with Prilosec 20 mg QD - Follow up with GI as scheduled - OMEPRAZOLE 20 MG CAPSULE,DELAYED RELEASE 3. Need for vaccination - ICD9: V05.9, ICD10: Z23 - INFLUENZA VACCINE QUADRIVALENT AGE 3 YRS PLUS + IM Nneka Denson APRN.CLAUS Prescription instructions reviewed with patient as applicable. Potential red flag symptoms discussed with the patient. Reviewed appropriate action plan to take if red flag symptoms occur. Patient agreeable to treatment plan. Nneka Denson APRN.CNP 07/08/2018 11:59 AM Signed Follow up in 1 week if no improvement. Sooner if worsening redness, if you develop fever or chills or drainage from that area. Referring Provider: SELF [[id number]] Allergies As of Date: 07/08/2018 Noted Allergy Reaction CEFTIN (CEFUROXIME) 07/01/2005 2 - Rash LISINOPRIL 11/02/2013 3 - Cough PENICILLINS 07/01/2005 4 - Hives VICODIN (HYDROCODONE-ACETAMINOPHE*07/01/2005 2 - Rash Date Reviewed: 07/08/2018 Reviewed by: Johanna Frankel Ma - Fully Assessed Reason for Visit: Derm Problem [33] Cmt: Spot on back, had shingles last year Imm/Inj [58] Cmt: Flu Vaccine Reason For Visit History Recorded Primary Visit Diagnosis:Folliculitis [L73.9] Other Visit Diagnoses:Gastroesophageal reflux disease, esophagitis presence not specified [K21.9] Need for vaccination [Z23] Order(s):INFLUENZA VACCINE QUADRIVALENT AGE 3 YRS PLUS + IM [[id number]] Order #: [id number] mupirocin (BACTROBAN) 2 % ointmentApply 1 application to affected area twice daily for 7 days.Disp: 15 gRfl: 0 omeprazole (PRILOSEC) 20 mg capsuleTake 1 capsule by mouth daily before breakfast.Disp: 30 capsuleRfl: 2 Prescriptions as of 07/08/2018 Sig: MUPIROCIN 2 % TOPICAL OINTMENT Apply 1 application to affect* OMEPRAZOLE 20 MG CAPSULE,KIAH* Take 1 capsule by mouth daily* FLUTICASONE 50 MCG/ACTUATION * Use 2 Sprays in each nostril * ASPIRIN 81 MG TABLET,DELAYED * Take 81 mg by mouth once asad* AMIODARONE 200 MG TABLET Take by mouth once daily. RIVAROXABAN 20 MG TABLET Take 20 mg by mouth daily wit* PRAVASTATIN 20 MG TABLET Take 20 mg by mouth once asad* OXYBUTYNIN CHLORIDE 5 MG TABL* Take 1 tablet by mouth twice * METOPROLOL TARTRATE 100 MG TA* Take 1 tablet by mouth twice * AMLODIPINE 5 MG TABLET Take 1 tablet by mouth once d* HYDROCHLOROTHIAZIDE 25 MG TAB* Take 1 tablet by mouth once d* CETIRIZINE 10 MG TABLET Take 1 tablet by mouth once d* SILDENAFIL 100 MG TABLET Take 1 tablet by mouth as nee* Problem List As Of Date 07/08/2018 Noted Resolved Essential hypertension, benign [I10] INVALID FOR* Priority: A More... More... 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 More... Headache(784.0) [R51] 03/24/2014 More... Atrial fibrillation (HCC) [I48.91] INVALID FOR*10/02/2015 Priority: A More... [I50.9] INVALID FOR* More... More... More... Abdominal pain, unspecified site [R10.9] INVALID FOR*10/26/2014 More... More... Hepatitis B [B19.10] INVALID FOR* More... More... Rectal bleeding [K62.5] INVALID FOR*08/11/2015 ZAID (obstructive sleep apnea) [G47.33] INVALID FOR* Vertigo [R42] INVALID FOR*11/21/2015 Stroke (HCC) [I63.9] INVALID FOR* Tremor [R25.1] INVALID FOR* Constitutional obesity [E66.8] INVALID FOR* Paroxysmal atrial fibrillation (HCC) [I48.0] INVALID FOR* More... More... Cirrhosis of liver without ascites (HCC) [K74.6*INVALID FOR* More... LGI bleed [K92.2] INVALID FOR* Obesity (BMI 35.0-39.9 without comorbidity) [E6*INVALID FOR* Pulmonary hypertension, secondary (HCC) [USN019*INVALID FOR* Varicose vein of leg [I83.90] INVALID FOR* More... Other instructions from your clinician: Follow up in 1 week if no improvement. Sooner if worsening redness, if you develop fever or chills or drainage from that area. Prescriptions ordered this encounter Disp Refills Start End MUPIROCIN 2 % TOPICAL OINTMENT 15 g 0 07/08/2018 07/15/2018 Route: TOPICAL Sig: Apply 1 application to affected area twice daily for 7 days. OMEPRAZOLE 20 MG CAPSULE,DELAYED REL* 30 c* 2 07/08/2018 Route: ORAL Sig: Take 1 capsule by mouth daily before breakfast. Encounter Status:Closed by NNEKA DENSON CNP on 07/09/18 ESOPHAGUS ONLY Observed: 06/02/2018 Status: F Source: [place] 8:19 AM [facility] [place] [facility] Imaging Services [address] [place] [address] Esophagus Only MR#: [id number] Acct: [id number] Name: ARMAAN GUTHRIE Rep #: [id number] : 1955 M 62 From: Duke Duran MD PCP: Baldemar Brink MD Status: REG CLI Study: Esophagus Only Date of Exam: 06/02/18 Exam# [id number] Ordering Dr: Markie Summers MD STUDY: X-RAY - ESOPHAGUS (BARIUM SWALLOW) WITH FLUOROSCOPY REASON FOR EXAM: Male, 62 years old. Cough. TECHNIQUE: 15 view(s) of the esophagus were obtained following swallowing of barium. FLUOROSCOPY TIME (if supplied): (1:00) minutes/seconds COMPARISON: None. FINDINGS: There is no demonstrated esophageal foreign body. There is no demonstrated stricture or mucosal abnormality. There is a small hiatal hernia of the fundus of the stomach. The patient ingested a 12 mm tablet of barium. The tablet is trapped at the gastroesophageal junction. There is atherosclerotic calcification of the aortic arch with tortuosity of the descending aorta. Normal visualized pulmonary parenchyma. Normal visualized osseous structures of the thorax. RAD/Esophagus Only IMPRESSION: Small sliding hiatal hernia. The 12 mm tablet of barium is trapped at the gastroesophageal junction. Electronically Signed: Duke Duran MD at 10:38 EDT Tel [phone], Service support , CC: Baldemar Brink MD; Markie Summers MD Script Writer: Signed CARDIOLOGY VISIT Observed: 05/08/2018 Status: F Source: [place] 10:48 AM [facility] [place] [facility] [place] [address] [facility] [place] [address] OFFICE VISIT Date of Service: 05/08/18 MR#: [id number] Acct: [id number] Name: ARMAAN GUTHRIE Rep #: [id number] : 1955 Provider: Goisa Boyle Age/Sex: 62/M [place] [facility] [place]: Signed HPI HPI Details: ARMAAN GUTHRIE, is a 62 M who presents to the office today for a hospital follow-up for chest pain. Patient has history of paroxysmal atrial fibrillation status post cardioversion in August 2017, non-CAD related cardiomyopathy, minimal to mild CAD, hypertension, DVT, renal insufficiency, and obstructive sleep apnea. He sts that he is not complaint with his CPAP. Patient states that since he has been home from the hospital has not had any further chest discomfort. He can sitters that this episode was likely related to indigestion. He does not have any heaviness or tightness. He is fairly active. He does not have any worsening shortness of breath. He does not have any palpitations that he is aware. He does not have any lower extremity edema Intake Vital Signs05/08/18 Height 6 ft 05/08/18 Weight: 282 lb 05/08/18 Body Mass Index (BMI) 38.2 05/08/18 Blood Pressure 135/85 Intake Visit Reasons: CP Bank Officer Required: No Is patient in pain?: No Allergies cefuroxime axetil [From Ceftin] Allergy (Verified 05/08/18 09:26) Rash hydrocodone bitartrate [From Vicodin] Allergy (Verified 05/08/18 09:26) Rash Penicillins Allergy (Verified 05/08/18 09:26) Hives carvedilol [From Coreg] Adverse Reaction (Verified 05/08/18 09:26) Other lisinopril Adverse Reaction (Verified 05/08/18 09:26) Other Medications aspirin 81 mg tablet,delayed release 81 mg PO QDAY #30 tab 10/07/17 [Rx Confirmed 05/08/18] Acetaminophen [Tylenol] 500 - 1,000 mg PO Q6H PRN PRN 11/19/17 [History Confirmed 05/08/18] Metoprolol Tartrate [Lopressor (beta abram)] 100 mg PO BID 11/19/17 [History Confirmed 05/08/18] Rivaroxaban [Xarelto] 20 mg PO QDAY 11/19/17 [History Confirmed 05/08/18] furosemide 40 mg tablet 40 mg PO QDAY #90 tab 01/16/18 [Rx Confirmed 05/08/18] amlodipine 5 mg tablet 5 mg PO QHS #30 tab 04/02/18 [Rx Confirmed 05/08/18] pravastatin 20 mg tablet 20 mg PO QHS #30 tab 04/03/18 [Rx Confirmed 05/08/18] Amiodarone HCl 200 mg PO DAILY 05/04/18 [History Confirmed 05/08/18] Sildenafil Citrate [Viagra] 100 mg PO PRN PRN 05/05/18 [History Confirmed 05/08/18] nitroglycerin 0.4 mg sublingual tablet 0.4 mg SUBLINGUAL Q5- 15M PRN #25 tab 05/08/18 [Rx Confirmed 05/08/18] [facility] Medical History History of congestive heart failure (Chronic) History of cardiomyopathy (Chronic) History of atrial fibrillation (Chronic) HTN (hypertension) (Chronic) History of cardioversion (Resolved 08/2017) History of echocardiogram (Resolved 08/2017) History of echocardiogram (Acute 01/2013) Erectile dysfunction (Chronic) Obesity (BMI 30-39.9) (Chronic) ZAID (obstructive sleep apnea) (Chronic) DVT (deep venous thrombosis) (Chronic) Renal insufficiency (Acute) Surgical History H/O cardiac catheterization (Resolved 06/2009) History of detached retina repair (Resolved) History of left inguinal hernia repair (Resolved) Family History Mother , CABG @ 50yrs, age 61 CAD (coronary artery disease) Social History Smoking Status: Never smoker alcohol intake: never substance use type: does not use caffeine: No what type of physical activity do you participate in: other details: PT frequency: 3-4 times per week duration: 15-30 minutes/day seatbelt use: always do you feel safe at home: Yes Cardiology Exam Const Appearance: cooperative, no acute distress and well developed Orientation: alert, awake and oriented x3 Head Head: normocephalic and atraumatic Mouth: moist mucous membranes Eyes General: appearance normal, both eyes and all related structures Conjunctivae: conjunctivae normal Pupils: PERRL EOM: EOM intact bilaterally Neck Neck: normal visual inspection, no lymphadenopathy and no JVD Carotids: Negative bruit Neck Mass: Negative Neck mass Chest Chest inspection: normal inspection of the chest and symmetric chest movement Auscultation: Bilateral: Clear to Auscultation Cardio Palpation: normal PMI Rate: regular rate Rhythm: regular rhythm Heart sounds: S1 normal and S2 normal; negative rub, gallop or murmur GI GI: normal to inspection, soft, no hepatosplenomegaly and bowel sounds present; negative tender Neuro General: alert, awake, oriented x3, CN's II-XI intact bilaterally and moves all extremities Extremities Pulses: Normal: Right Posterior Tibial Pulse, Left Posterior Tibial Pulse, Right Radial Pulse, Left Radial Pulse Lower Extremity Edema: None: Bilateral Psych Psychological: normal affect Supplemental Info Stress test in 2018 was negative for ischemia. Assessment AND Plan 1. Coronary artery disease involving [place] coronary artery of [place] heart without angina pectoris I25.10 Plan Stable, from a cardiac standpoint patient does not have any symptoms of angina. We recommend that they continue with current aggressive medical management and risk factor modification., Patient had a recent stress test during hospital stay which was negative for ischemia. He was given a prescription for nitroglycerin that he can use on an as-needed basis. He was advised of not using this with his erectile dysfunction medications. 2. Essential hypertension I10 Plan Blood pressure is well controlled on current medications, we do not recommend any changes at this time. 3. PAF (paroxysmal atrial fibrillation) I48.0 DCCV in August 2017; Plan Patient has not had any symptomatic recurrence. He will continue with his rate limiting medication in addition to his amiodarone. Will need to continue to monitor his thyroid and hepatic panels closely in addition to chest x-rays and pulmonary function tests. Plan Detail Other Medications New: nitroglycerin until response; 0.4 mg Sublingual Q5-15M PRN cy ROBERTO Morelos do not exceed 3 doses per episodest pain Discontinued: Follow Up 05/08/18 (Keep as is) Coding Level of Care Code Off vis,est,level 3 Diagnoses Coronary artery disease involving [place] coronary artery of [place] heart without angina pectoris I25.10 Coronary Disease-Associated Artery/Lesion type: [place] artery [place] vs. transplanted heart: [place] heart Associated angina: without angina Essential hypertension I10 Hypertension type: essential hypertension PAF (paroxysmal atrial fibrillation) I48.0 Coding Level of Care Code Off vis,est,level 3 Diagnoses Coronary artery disease involving [place] coronary artery of [place] heart without angina pectoris I25.10 Coronary Disease-Associated Artery/Lesion type: [place] artery [place] vs. transplanted heart: [place] heart Associated angina: without angina Essential hypertension I10 Hypertension type: essential hypertension PAF (paroxysmal atrial fibrillation) I48.0 05/08/18 1048 <Electronically signed by Gosia MEJIA> Date Gosia MEJIA Cosign Signature: Date (if applicable) CC: Baldemar Brink MD 12 LEAD ELECTROCARDIOGRAM Observed: 05/07/2018 Status: F Source: [place] 9:56 AM [facility] [place] [facility] Cardiovascular Services [address] [place] [address] 12 Lead EKG 05/04/18 2220 MR#: [id number] Acct: [id number] Name: ARMAAN GUTHRIE Rep #: [id number] : 1955 62 From: Zach Castillo MD Attending Dr: Darline Turcios Status: DIS NIMO Ordering Dr: Buck Cheema DO Date: 05/04/18 Location: [facility] Sex: M C Admitted: 05/04/18 Test Reason : CP Blood Pressure : / mmHG Vent. Rate : 073 BPM Atrial Rate : 073 BPM P-R Int : 182 ms QRS Dur : 104 ms QT Int : 432 ms P-R-T Axes : 038 -09 032 degrees QTc Int : 475 ms Normal sinus rhythm Normal ECG Confirmed by ZACH CASTILLO MD ([id number]), mapping editor JANETH DING ([id number]) on 05/07/2018 9:56:29 AM Referred By: KENRICK Confirmed By:ZACH CASTILLO MD 05/07/18 0956 Date Zach Castillo MD CC: Baldemar Brink MD; Darline Turcios; Buck Cheema Signed DISCHARGE SUMMARY Observed: 05/05/2018 Status: F Source: [place] 3:57 PM [facility] [place] [facility] Medical Records Department [address] [place] [address] Discharge Summary 05/05/18 1402 MR#: [id number] Acct: [id number] Name: ARMAAN GUTHRIE Rep #: [id number] : 1955 62 From: Srini MEJIA PCP: Baldemar Brink MD Status: DIS NIMO Y Location: [place] [address]-1 <Srini Laguerre - Last Filed: 05/05/18 14:02> Discharge Date and Diagnosis Date of Admission: 05/04/18 Date of Discharge: 05/05/18 - Primary Discharge Diagnosis Chest pain - Musculoskeletal vs GERD, cardiac etiology ruled out Nonischemic cardiomyopathy PAFib Obesity HTN ZAID - Secondary Discharge Diagnosis Chronic Problems (Last Reviewed 10/17/17 @ 11:10 by Jaclyn Cannon) Valvular heart disease (Chronic) Non-ischemic cardiomyopathy (Chronic) Cardiomyopathy in other diseases classified elsewhere (Chronic) PAF (paroxysmal atrial fibrillation) (Chronic) DCCV in August 2017; GOMEZ (dyspnea on exertion) (Chronic) Obesity (BMI 30-39.9) (Chronic) HTN (hypertension) (Chronic) Long-term use of high-risk medication (Chronic) Chronic atrial fibrillation (Chronic) on Xarelto Benign essential hypertension (Chronic) Erectile dysfunction (Chronic) Obesity (BMI 30-39.9) (Chronic) ZAID (obstructive sleep apnea) (Chronic) CHF (congestive heart failure) (Chronic) Cardiomyopathy (Chronic) CAD (coronary artery disease) (Chronic) DVT (deep venous thrombosis) (Chronic) Hospital Course and Treatment Imaging Results: 05/05/18 05:55 Nuclear Stress Test - Treadmil [NM] AM (NON MEDS) Impression: 1. Rest and stress SPECT Cardiolite nuclear imaging demonstrate an area of diminished absence of myocardial perfusion/tracer uptake in portions of the apical areas without significant change between rest and stress appearing compatible with an area of previous myocardial injury/infarction with no myocardial perfusion changes consider diagnostic for associated stress-induced myocardial ischemia. 2. The gated Cardiolite study reports an LVEF of 59 %. RAD/Chest 1 View (Portable) IMPRESSION: Borderline cardiomegaly without acute pulmonary abnormality or major interval change Operations: None Procedures: Stress test Summary of Care Provided: Physical exam on day of discharge: General: Resting comfortably NAD Psych: A/Ox3 normal affect HEENT: [place] AT NC Neck: Supple NT CV: RRR no m/t/r/g/h Resp: CTA Abd: [id number] Soft NT no guarding or rigidity Ext: DP2+= no edema Skin: W/D normal turgor Lymph/Heme: No active bleeding or adenopathy Neuro: CN2-12 intact Hospital course: The patient is a 62 year old M with a history of nonischemic cardiomyopathy, paroxysmal atrial fibrillation, hypertension, obstructive sleep apnea, obesity, who presented to the emergency room with chest pain that would occur both at rest and when he was pushing his lawnmower, and sometimes worse when he would eat. It was relieved with nitro. He had been having episodes of the past 3 weeks. He did have a negative stress last August prior to his cardioversion. He had a negative troponin, negative EKG negative chest x-ray. He was admitted to the PCU for stress test in the morning. He has troponin cycled overnight, was maintained on telemetry. These were negative. Stress test the following morning was negative. Patient was unsure if it was more related to his use of the lawnmower which would indicate more of a musculoskeletal issue, or if it was more related to his acid reflux for which she had been taking Mylanta for, and he had been noticing the chest pain more after eating. Advised for him to follow-up with his primary care provider in 1-2 weeks. He is going to try an [id number] antacid such as omeprazole or Pepcid. We also discussed his sleep apnea-he admitted that he had not been using his CPAP machine at all. He is going to start trying to use it more. He is discharged home in stable condition. 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 Castillo. I advised him to follow-up with him the next 2 weeks. This patient was seen by Srini Laguerre PA-C under the supervision of Doctor Karolina. [] Discharge Diet: No Restrictions Discharge Activity: Return to Normal Activity Home Medications: Medications to take at Discharge aspirin 81 mg tablet,delayed release 81 mg PO QDAY #30 tab 10/07/17 Acetaminophen [Tylenol] 500 - 1,000 mg PO Q6H PRN PRN 11/19/17 Metoprolol Tartrate [Lopressor (beta abram)] 100 mg PO BID 11/19/17 Rivaroxaban [Xarelto] 20 mg PO QDAY 11/19/17 furosemide 40 mg tablet 40 mg PO QDAY #90 tab 01/16/18 amlodipine 5 mg tablet 5 mg PO QHS #30 tab 04/02/18 pravastatin 20 mg tablet 20 mg PO QHS #30 tab 04/03/18 Amiodarone HCl 200 mg PO DAILY 05/04/18 Sildenafil Citrate [Viagra] 100 mg PO PRN PRN 05/05/18 Primary Care Physician: Baldemar Brink MD [Primary Care Provider] - Please follow up with your Primary Care Physician in: 1-2 weeks Please Follow Up With: Zach Castillo MD When: 2 weeks Medical Necessity - Tobacco Use Smoking Status: Never smoker Tobacco Use: Non-smoker Meaningful Use Info Meaningful Use Diagnoses (Choose all that apply): None applicable <Darline Turcios E - Last Filed: 05/05/18 15:57> Discharge Date and Diagnosis - Secondary Discharge Diagnosis Chronic Problems (Last Reviewed 10/17/17 @ 11:10 by Jaclyn Cannon) Valvular heart disease (Chronic) Non-ischemic cardiomyopathy (Chronic) Cardiomyopathy in other diseases classified elsewhere (Chronic) PAF (paroxysmal atrial fibrillation) (Chronic) DCCV in August 2017; GOMEZ (dyspnea on exertion) (Chronic) Obesity (BMI 30-39.9) (Chronic) HTN (hypertension) (Chronic) Long-term use of high-risk medication (Chronic) Chronic atrial fibrillation (Chronic) on Xarelto Benign essential hypertension (Chronic) Erectile dysfunction (Chronic) Obesity (BMI 30-39.9) (Chronic) ZAID (obstructive sleep apnea) (Chronic) CHF (congestive heart failure) (Chronic) Cardiomyopathy (Chronic) CAD (coronary artery disease) (Chronic) DVT (deep venous thrombosis) (Chronic) Hospital Course and Treatment Summary of Care Provided: Hospitalist note: Discharge summary were reviewed and I agree with the above discharge and treatment plan. Patient admitted for chest pain for evaluation. His cardiac history significant for nonischemic cardiomyopathy, paroxysmal A. fib and hypertension. His EKG was negative for acute ischemic changes. Troponin was negative 3. Chest x-ray showed no acute findings. He underwent nuclear stress test that reported as negative without evidence of stress-induced myocardial ischemia. This is out. His symptoms attributed to probably musculoskeletal pain versus GERD. Patient discharged home in stable condition, discharged on his chronic home medication without any changes, recommended from PCP in 1- 2 weeks and follow-up with cardiology in 2 weeks. - Physical Exam General: Alert, Oriented x3, Cooperative, No apparent distress. HEENT: Atraumatic, PERRLA, EOMI. Neck: Supple, No JVD, Negative Carotid Bruits, Trachea Midline, Thyroid Normal. Lungs: Clear to auscultation, Normal air movement, No rhonchi, No wheeze, No rales. Cardiovascular: Regular rate, Regular Rhythm, Normal S1, Normal S2, PMI Normal. Abdomen: Bowel Sounds Present, Soft, Non Tender, Non-Distended, No Hepato-splenomegaly. Extremities: No clubbing, No cyanosis, No edema Skin: No rashes, No breakdown Neurological: Neuro grossly intact Vital Signs are stable. This note was generated with [employer] dictation software. It may contain incorrect words, spelling, and punctuation that were not noted in checking the note before signing. Disposition: Home Minutes spent on discharge:: 25 Patient Condition:: Stable Meaningful Use Info Meaningful Use Diagnoses (Choose all that apply): None applicable Code Visit OBSV E AND M: 80727 Observation care discharge 05/05/18 1407 <Electronically signed by Srini MEJIA> Date Srini MEJIA 05/05/18 1557<Electronically signed by Darline Turcios MD> Cosigner Signature (if applicable): Date Darline Turcios MD CC: ROBERTO Laguerre; Baldemar Brink MD; Darline Turcios; Zach Castillo MD Signed DISCHARGE INSTRUCTION Observed: 05/05/2018 Status: F Source: [place] 11:41 AM [facility] Medical Records Department [address] [place] [id number] Instructions for Home/Discharge Instructions 05/05/18 1140 MR#: [id number] Acct: [id number] Name: ARMAAN GUTHRIE Rep #: [id number] : 1955 62 From: Srini MEJIA PCP: Baldemar Brink MD Status: ADM NIMO - Discharge Diagnoses Current Active Problems: Current Active and Chronic Problems (Last Reviewed 10/17/17 @ 11:10 by Jaclyn Cannon) Chest pain (Acute) You will use the following diet at home:: Cardiac Your food should be the consistency of: Regular Your liquids should be the consistency of: Regular/Thin Discharge Activity: Return to Normal Activity Allergies/Adverse Reactions: Allergies cefuroxime axetil [From Ceftin] Allergy (Verified 05/04/18 22:18) Rash hydrocodone bitartrate [From Vicodin] Allergy (Verified 05/04/18 22:18) Rash Penicillins Allergy (Verified 05/04/18 22:18) Hives DIFFICULTY BREATHING carvedilol [From Coreg] Adverse Reaction (Verified 05/04/18 22:18) Other lisinopril Adverse Reaction (Verified 05/04/18 22:18) Other Medications to take at Discharge aspirin 81 mg tablet,delayed release 81 mg PO QDAY #30 tab 10/07/17 Acetaminophen [Tylenol] 500 - 1,000 mg PO Q6H PRN PRN 11/19/17 Metoprolol Tartrate [Lopressor (beta abram)] 100 mg PO BID 11/19/17 Rivaroxaban [Xarelto] 20 mg PO QDAY 11/19/17 furosemide 40 mg tablet 40 mg PO QDAY #90 tab 01/16/18 amlodipine 5 mg tablet 5 mg PO QHS #30 tab 04/02/18 pravastatin 20 mg tablet 20 mg PO QHS #30 tab 04/03/18 Amiodarone HCl 200 mg PO DAILY 05/04/18 Sildenafil Citrate [Viagra] 100 mg PO PRN PRN 05/05/18 Primary Care Physician: Baldemar Brink MD [Primary Care Provider] - Please follow up with your Primary Care Physician in: 1-2 weeks Test Results: Test results from this visit will be discussed in further detail at your follow-up appointment, if applicable. Please Follow Up With: Zach Castillo MD When: 2 weeks Proposed Discharge Date: 05/05/18 05/05/18 1141 <Electronically signed by Srini MEJIA> Date Srini MEJIA CC: Baldemar Brink MD STRESS REPORT Observed: 05/05/2018 Status: F Source: [place] 9:22 AM [facility] Cardiovascular Services [address] [place] [address] MR#: [id number] Acct: [id number] Name: ARMAAN GUTHRIE Rep #: [id number] : 1955 62 From: Zach Castillo MD Primary Care: Baldemar Brink MD Status: ADM NIMO Ordering Dr: Christophe Koehler Stress Test Report Date: 05/05/2018 Procedure: Pharmacologic stress nuclear imaging study Indications: Chest pain; atrial fibrillation; nonsustained E related cardiomyopathy Consent: Per the patient Procedure: The patient underwent pharmacologic (Regadenoson) evaluation with a peak heart rate of 80 beats per minute (50 predicted maximal heart rate) and a peak blood pressure of 162/88 mmHg. The baseline ECG demonstrated sinus rhythm: IVCD. The peak pharmacologic ECG demonstrated no obvious ECG changes. There was an occasional PVC post infusion. There was no complaint of chest discomfort during pharmacologic infusion or recovery. The examination was discontinued secondary to completion of protocol. Impression: 1. Pharmacologic (Regadenoson) evaluation 2. Peak pharmacologic ECG with no obvious ECG changes. 3. There was an occasional PVC post infusion 4. Nuclear images pending Myocardial perfusion imaging study: Technique: The patient was injected with 14.8 millicuries of technetium 99m Cardiolite and subsequently rest SPECT Cardiolite nuclear imaging was obtained in the horizontal long, vertical long, and short axis views. The patient underwent pharmacologic (Regadenoson) evaluation with a peak heart rate of 80 beats per minute (50 % percent predicted maximal heart rate) and a peak blood pressure of 162/88 mmHg. The patient was injected with 45 millicuries of technetium 99m Cardiolite and subsequently stress SPECT Cardiolite nuclear imaging was obtained in the horizontal long, vertical long, and short axis views. A gated Cardiolite study at peak stress was obtained. Interpretation: Rest and stress SPECT Cardiolite nuclear imaging status post realignment, normalization, and attenuation correction demonstrate an area of diminished absence of tracer uptake in the apical segments without significant change between rest and stress. There is diminished end systolic thickening and brightening in the aforementioned areas. The reported LVEF is 59 %. Impression: 1. Rest and stress SPECT Cardiolite nuclear imaging demonstrate an area of diminished absence of myocardial perfusion/tracer uptake in portions of the apical areas without significant change between rest and stress appearing compatible with an area of previous myocardial injury/infarction with no myocardial perfusion changes consider diagnostic for associated stress-induced myocardial ischemia. 2. The gated Cardiolite study reports an LVEF of 59 %. This note was generated with [employer] software. It may contain incorrect words, spelling, and punctuation that were not noted in checking the note before signing. 05/05/18 0922 <Electronically signed by Zach Castillo MD> Date Zach Castillo MD CC: Baldemar Brink MD; Darline Turcios Date Dictated: 05/05/18914 Date Transcribed: 05/05/18914 Script Writer: PM Signed TROPONIN-I Collected: 05/05/2018 Status: F Source: [place] 5:35 AM [facility] Order Comment: 'TROP' Serial specimen #1, #2 or #3: 3 'TROP' Serial specimen #1, #2, #3, or #4: 3 TYPE CODE TESTS RESULT OUT OF RANGE REFERENCE UNITS LAB L501.4010 <0.045 ng/mL Normal 0.024 TROPONIN-I Result Comment: TROPONIN-I EXPECTED VALUES <0.045 Negative 0.045 - 0.590 Consistent with Cardiac Damage > OR = 0.600 Critical Value Not every elevated troponin is indicative of SD. These values should be used with clinical judgement in examining the patient's clinical picture for diagnosis. To establish a diagnosis of SD versus myocardial injury, there must be a demonstrated rise and/or fall in the troponin values, in addition to ischemic symptoms, EKG changes, new regional wall motion abnormality, and/or angiographical evidence. PLEASE NOTE: REFERENCE RANGES EDITED 18 Performed By: #### L501.4010 #### [facility] [place], [address] CBC-COMPLETE BLOOD CNT Collected: 05/05/2018 Status: F Source: [place] NO DIFF 2:30 AM [facility] TYPE CODE TESTS RESULT OUT OF RANGE REFERENCE UNITS LAB L100.1000 4.4-11.0 K/mm3 Low WBC 2.6 LAB L100.1200 4.6-6.2 M/mm3 Low RBC 3.52 LAB L100.1300 13.0-16.5 g/dl Low HGB 11.2 LAB L100.1400 40-54 % Low HCT 33.9 LAB L100.1500 80-94 fL High MCV 96.3 LAB L100.1600 27.0-32.0 pg Normal MCH 31.8 LAB L100.1700 32-36 g/gl Normal MCHC 33.0 LAB L100.1810 11.6-14.6 % Normal RDW CV 14.0 LAB L100.1820 35.1-43.9 fl High RDW SD 47.2 LAB L100.1900 150-450 K/mm3 Low PLT 97 LAB L100.2000 6.2-12.0 fl Normal MPV 10.5 Performed By: #### L100.0500, L100.0100 #### [facility] [address] [place], [place], [address] CBC W/DIFF, AUTOMATED Collected: 05/05/2018 Status: F Source: [place] 2:30 AM [facility] TYPE CODE TESTS RESULT OUT OF RANGE REFERENCE UNITS LAB L100.1000 4.4-11.0 K/mm3 Low WBC 2.6 LAB L100.1200 4.6-6.2 M/mm3 Low RBC 3.52 LAB L100.1300 13.0-16.5 g/dl Low HGB 11.2 LAB L100.1400 40-54 % Low HCT 33.9 LAB L100.1500 80-94 fL High MCV 96.3 LAB L100.1600 27.0-32.0 pg Normal MCH 31.8 LAB L100.1700 32-36 g/gl Normal MCHC 33.0 LAB L100.1810 11.6-14.6 % Normal RDW CV 14.0 LAB L100.1820 35.1-43.9 fl High RDW SD 47.2 LAB L100.1900 150-450 K/mm3 Low PLT 97 LAB L100.2000 6.2-12.0 fl Normal MPV 10.5 LAB L100.2100 47-70 % Low NEUT% 43.4 LAB L100.2200 19-41 % High LY% 41.8 LAB L100.2300 0-10 % High MONO% 11.1 LAB L100.2400 0-5 % Normal EO% 2.9 LAB L100.2500 0-1 % Normal BASO% 0.4 LAB L100.2550 0.0-0.9 % Normal IM GRAN % 0.400 Result Comment: IG% - Immature Granulocytes (promyelocytes, myelocytes and metamyelocytes) > 1% indicates that a LEFT SHIFT is Present. LAB L100.2620 2.0-7.7 X10 3/uL Low Absolute Neut 1.2 LAB L100.2720 0.83-4.51 X10 3/ul Normal Absolute Lymph 1.17 Performed By: #### L100.0500, L100.0100 #### [facility] [address] [place], [address] PROTHROMBIN TIME W/INR Collected: 05/05/2018 Status: F Source: [place] 2:30 AM [facility] TYPE CODE TESTS RESULT OUT OF RANGE REFERENCE UNITS LAB L300.4150 11.7-14.9 SECONDS High PROTIME 32.9 LAB L300.4200 Normal INR 3.2 Performed By: #### L300.3900, L300.4310 #### [facility] [address] [place], [address] PARTIAL THROMBOPLAST Collected: 05/05/2018 Status: F Source: [place] TIME 2:30 AM [facility] TYPE CODE TESTS RESULT OUT OF REFERENCE UNITS RANGE LAB L300.4310 24.1-36.2 Seconds High PTT 40.5 Performed By: #### L300.3900, L300.4310 #### [facility] [address] [place], [address] TROPONIN-I Collected: 05/05/2018 Status: F Source: [place] 2:30 AM [facility] Order Comment: 'TROP' Serial specimen #1, #2 or #3: 2 TYPE CODE TESTS RESULT OUT OF RANGE REFERENCE UNITS LAB L501.4010 <0.045 ng/mL Normal 0.029 TROPONIN-I Result Comment: TROPONIN-I EXPECTED VALUES <0.045 Negative 0.045 - 0.590 Consistent with Cardiac Damage > OR = 0.600 Critical Value Not every elevated troponin is indicative of SD. These values should be used with clinical judgement in examining the patient's clinical picture for diagnosis. To establish a diagnosis of SD versus myocardial injury, there must be a demonstrated rise and/or fall in the troponin values, in addition to ischemic symptoms, EKG changes, new regional wall motion abnormality, and/or angiographical evidence. PLEASE NOTE: REFERENCE RANGES EDITED 18 Performed By: #### L501.4010 #### [facility] [address] [place], [address] COMPREHENSIVE METABOLIC Collected: 05/05/2018 Status: F Source: [place] PROFIL 2:30 AM [facility] TYPE CODE TESTS RESULT OUT OF RANGE REFERENCE UNITS LAB L501.0100 74-106 mg/dL High GLU 108 Result Comment: Fasting Glucose result from 100 to 125 mg/dL suggests IMPAIRED HOMEOSTASIS per A.D.A. criteria. Please note revised GLUCOSE reference range effective 2017. LAB L501.1000 7-18 mg/dL Normal BUN 18 LAB L501.1100 0.70-1.30 mg/dL High CREAT,SERUM 1.35 Result Comment: The validity of the calculated GFR AND GFRAA in patients over 70 years has not been determined. Clinical correlation is essential. LAB L501.1110 >60 mL/min Low EST GFR 57 Result Comment: Non- GFR Calc LAB L501.1115 >60 mL/min Normal EST GFR - AA 69 Result Comment: GFR Calc LAB L501.1255 ml/min Normal Estimated CRCL 63.87 LAB L501.1300 10-20 RATIO Normal BUN/CRE 13.3 LAB L501.1500 6.4-8. g/dL Low 2 T PROT 6.0 LAB L501.1800 3.2-5. g/dL Low 0 ALB 2.6 LAB L501.1950 2.2-4. g/dL Normal 2 GLOB 3.4 LAB L501.2000 0.9-2. RATIO Low 4 A/G 0.8 LAB L501.2200 8.5-10 mg/dL Low .1 CA 7.8 LAB L501.4100 15-37 U/L Normal AST 36 LAB L501.4305 45-117 U/L High ALK P 162 LAB L501.4405 16-61 U/L Normal ALT 28 LAB L501.4600 0.20-1 mg/dL Normal .00 T BILI 0.90 LAB L501.5300 136-14 mmol/L Normal 5 NA 144 LAB L501.5600 3.5-5. mmol/L Normal 1 K 3.6 LAB L501.5900 98-107 mmol/L Normal CL 107 LAB L501.6100 21.0-3 mmol/L Normal 2.0 CO2 28.0 LAB L501.6200 5-15 Normal GAP 9 Performed By: #### L500.4050, L500.4100 #### [facility] [address] [place], [address] LIPID PROFILE Collected: 05/05/2018 Status: F Source: [place] 2:30 AM [facility] TYPE CODE TESTS RESULT OUT OF RANGE REFERENCE UNITS LAB L501.4900 200 mg/dL Normal CHOL 97 Result Comment: <200 mg/dL Desirable 200-240 mg/dL Borderline >240 mg/dL High Risk LAB L501.5000 mg/dL Normal TRIG 88 Result Comment: The drugs N-Acetylcysteine and Metamizole may falsely depress this assay. Serum Triglycerides Reference Interval Normal <150 mg/dL Borderline high 150 - 199 mg/dL High 200 - 499 mg/dL Very High > or = 500 mg/dL LAB L501.6400 mg/dL Normal HDL 41 Result Comment: The drugs N-Acetylcysteine and Metamizole may falsely depress this assay. Reference Range HDL <40 mg/dL Low HDL Cholesterol HDL >or= 60 mg/dL High HDL Cholesterol LAB L501.6500 0-130 mg/dL Normal LDL 38 LAB L501.6600 5-40 mg/dL Normal VLDL 18 Performed By: #### L500.4050, L500.4100 #### [facility] [address] [place], [address] HISTORY AND PHYSICAL Observed: 05/04/2018 Status: F Source: [place] EXAM 11:59 PM [facility] Medical Records Department [address] [place] [address] History and Physical 05/04/18 2350 MR#: [id number] Acct: [id number] Name: ARMAAN GUTHRIE Rep #: [id number] : 1955 62 From: Zach Morillo MD PCP: Baldemar Brink MD Status: REG ER Y Location: ED Problem List (1) Non-ischemic cardiomyopathy Status: Chronic (2) Cardiomyopathy in other diseases classified elsewhere Status: Chronic (3) PAF (paroxysmal atrial fibrillation) Status: Chronic Comment: DCCV in August 2017; (4) GOMEZ (dyspnea on exertion) Status: Chronic (5) Obesity (BMI 30-39.9) Status: Chronic (6) HTN (hypertension) Status: Chronic (7) History of cardioversion Status: Resolved (8) H/O cardiac catheterization Status: Resolved (9) History of echocardiogram Status: Resolved (10) Erectile dysfunction Status: Chronic (11) ZAID (obstructive sleep apnea) Status: Chronic (12) Chest pain Status: Acute Qualifiers: Chest pain type: unspecified Qualified Code(s): R07.9 - Chest pain, unspecified History of Present Illness Date of Admission: 05/04/18 Chief Complaint: chest pain The patient is a 62 year old male patient with a past medical history of atrial fibrillation and cardiomyopathy presents to the ER with chest pain. Onset of the pain began at 7:00 this evening whilst driving. The pain radiated to his shoulder blades and substernal anteriorly. The pain was relieved by nitroglycerin. He states he has had similar chest pain over the past few weeks when he is using his push mower. He is currently free of chest pain. There was a negative stress test in August prior to his cardioversion. He will be admitted for further cardiac workup. Past Medical History Past Medical History (Chronic Problems): Chronic Problems (Last Reviewed 10/17/17 @ 11:10 by Jaclyn Cannon) Valvular heart disease (Chronic) Non-ischemic cardiomyopathy (Chronic) Cardiomyopathy in other diseases classified elsewhere (Chronic) PAF (paroxysmal atrial fibrillation) (Chronic) DCCV in August 2017; GOMEZ (dyspnea on exertion) (Chronic) Obesity (BMI 30-39.9) (Chronic) HTN (hypertension) (Chronic) Long-term use of high-risk medication (Chronic) Chronic atrial fibrillation (Chronic) on Xarelto Benign essential hypertension (Chronic) Erectile dysfunction (Chronic) Obesity (BMI 30-39.9) (Chronic) ZAID (obstructive sleep apnea) (Chronic) CHF (congestive heart failure) (Chronic) Cardiomyopathy (Chronic) CAD (coronary artery disease) (Chronic) DVT (deep venous thrombosis) (Chronic) Medical History: Medical History (Last Reviewed 10/17/17 @ 11:10 by Jaclyn Cannon) HTN (hypertension) (Chronic) I10 History of cardioversion (Resolved) Onset Date: 08/2017 Z98.890 History of echocardiogram (Resolved) Onset Date: 08/2017 Z92.89 History of echocardiogram (Acute) Onset Date: 01/2013 Z92.89 Erectile dysfunction (Chronic) N52.9 Obesity (BMI 30-39.9) (Chronic) E66.9 ZAID (obstructive sleep apnea) (Chronic) G47.33 DVT (deep venous thrombosis) (Chronic) I82.409 Renal insufficiency (Acute) N28.9 Allergies cefuroxime axetil [From Ceftin] Allergy (Verified 05/04/18 22:18) Rash hydrocodone bitartrate [From Vicodin] Allergy (Verified 05/04/18 22:18) Rash Penicillins Allergy (Verified 05/04/18 22:18) Hives DIFFICULTY BREATHING carvedilol [From Coreg] Adverse Reaction (Verified 05/04/18 22:18) Other lisinopril Adverse Reaction (Verified 05/04/18 22:18) Other Home Medications: Ambulatory Orders Medication Instructions Recorded aspirin 81 mg tablet,delayed 81 mg PO QDAY #30 tab 10/07/17 release Acetaminophen [Tylenol Extra 500 - 1,000 mg PO Q6H PRN PRN 11/19/17 Surgical History: Surgical History (Last Reviewed 12/11/17 @ 08:43 by Ruddy Bobby) H/O cardiac catheterization (Resolved) Onset Date: 06/2009 Z98.890 Surgical History: - Psychiatric History: No pertinent psych hx Smoking Status: Never smoker - *Family History Maternal Family History: Family History (Last Reviewed 12/11/17 @ 08:43 by Ruddy Bobby) Mother CAD (coronary artery disease) History Items: Heart Disease Paternal Family History: Family History (Last Reviewed 12/11/17 @ 08:43 by Ruddy Bobby) Mother CAD (coronary artery disease) History Items: Cancer, Heart Disease Review of Systems Constitutional: Denies: Chills, Fever, Weight Change HEENT: Denies: Head Aches, Sinus Congestion, Sinus Drainage Cardiovascular: Reports: Chest Pain. Denies: Palpitations Respiratory: Denies: Cough, Shortness of breath at rest, Sputum production Gastrointestinal: Denies: Abdominal Pain, Nausea, Vomiting Genitourinary: Denies: Dysuria Musculoskeletal: Denies: Joint Pain, Joint Tenderness Skin: Denies: Rash, Wounds Neurological: Denies: Numbness, Tingling, Focal weakness Psychiatric: Denies: Anxiety, Depression, Homicidal Ideations, Suicidal Ideations Hematologic/ Lymphatic: Denies: Easy Bruising, Easy Bleeding VTE Information - Inpt Only VTE Present on Admission: No VTE Mechan Device Prophylaxis: None VTE Pharm Prophylaxis ordered?: No Patient Problems: Active and Suspected Problems (Last Reviewed 10/17/17 @ 11:10 by Jaclyn Cannon) Chest pain (Acute) - Physical Exam General: Alert, Oriented x3, Cooperative HEENT: Atraumatic, Normocephalic Neck: Supple Lungs: Clear to auscultation, Normal air movement Cardiovascular: Regular rate, Normal S1, Normal S2, No murmurs Abdomen: Bowel Sounds Present, Soft, Non Tender, Obese Extremities: Capillary Refill Less than 3 Seconds, Edema - 2+ lower ext edema Skin: No rashes Musculoskeletal: No Tenderness to Palpation of Joints or Extremities Neurological: Neuro grossly intact Psych/Mental Status: Normal Affect, Appropriate Vital Signs Temp Pulse Resp BP Pulse Ox 98.0 F 73 14 152/93 H 98 05/04/18 22:35 05/04/18 23:13 05/04/18 22:35 05/04/18 23:13 05/04/18 22:35 Oxygen Flow Rate (L/min) 2 Oxygen Delivery Method Nasal Cannula Weight: 280 lb Body Mass Index (BMI) 38.0 Finger Stick Blood Glucose 86 Laboratory Tests Past 24 Hrs WBC 4.2 L RBC 3.90 L Hgb 12.5 L Hct 37.3 L MCV 95.6 H MCH 32.1 H MCHC 33.5 RDW 13.9 RDW Differential 46.9 H Assessment/Plan All Active Problems (Last Reviewed 10/17/17 @ 11:10 by Jaclyn Cannon) History of cardioversion (Resolved 08/2017) H/O cardiac catheterization (Resolved 06/2009) History of echocardiogram (Resolved 08/2017) History of echocardiogram (Acute 01/2013) Chest pain (Acute) VTE (venous thromboembolism) (Acute) Dyspnea (Acute) Renal insufficiency (Acute) Syphilis (Resolved) Cerebrovascular disease (Ruled-out) Chronic Problems (Last Reviewed 10/17/17 @ 11:10 by Jaclyn Cannon) Valvular heart disease (Chronic) Non-ischemic cardiomyopathy (Chronic) Cardiomyopathy in other diseases classified elsewhere (Chronic) PAF (paroxysmal atrial fibrillation) (Chronic) DCCV in August 2017; GOMEZ (dyspnea on exertion) (Chronic) Obesity (BMI 30-39.9) (Chronic) HTN (hypertension) (Chronic) Long-term use of high-risk medication (Chronic) Chronic atrial fibrillation (Chronic) on Xarelto Benign essential hypertension (Chronic) Erectile dysfunction (Chronic) Obesity (BMI 30-39.9) (Chronic) ZAID (obstructive sleep apnea) (Chronic) CHF (congestive heart failure) (Chronic) Cardiomyopathy (Chronic) CAD (coronary artery disease) (Chronic) DVT (deep venous thrombosis) (Chronic) plan - admit to progressive care unit for observation - cycle cardiac enzymes - morphine, nitro and aspirin per routine - nuclear exercise stress test in am - continue routine medications - DC home if stress test negative - He routinely sees Dr Castillo for cardiology care Code Visit OBSV E AND M: [id number] Initial observation care L2 05/04/18 9779 <Electronically signed by Zach Morillo MD> Date Zach Morillo MD Cosigner Signature: Date (if applicable) CC: Baldemar Brink MD; Zach Morillo MD Signed EMERGENCY DEPARTMENT Observed: 05/04/2018 Status: F Source: [place] SUMMARY 11:42 PM [facility] [place] [facility] Medical Records Department [address] [place] [address] Emergency Department Summary 05/04/18 2254 MR#: [id number] Acct: [id number] Name: ARMAAN GUTHRIE Rep #: [id number] : 1955 62 From: Buck Etienne PCP: Baldemar Brink MD Status: REG ER - ER Visit Summary Date of Service: 05/04/18 Chief Complaint: Chest pain History of Present Illness: The patient is a 62 M sudden chest pain while driving home around 7 PM. Pain is sharp midsternal rating into his scapula bilaterally. Complains of dyspnea and nausea. No diaphoresis. Pain 7 out of 10. Currently states there is tightness. No arm numbness. Denies previous similar symptoms in the past. Denies history of SD. Patient followed by Dr. Castillo history of chronic A. fib. Stress test in August pre-cardioversion. He is on baby aspirin, Xarelto. DVT in the past. No missed doses of medications. States he had a heart cath 5-[address] Zurita with no intervention. Physical Examination: General: Alert and oriented 3, no acute distress HEENT: Normocephalic, atraumatic. Moist mucosa membranes Neck: supple, nontender. Cardiovascular: Regular rate and rhythm, no murmurs Respiratory: Normal breath sounds, symmetric, no distress Abdomen: Soft, nontender, nondistended Extremities: Nontender, minimal lower extremity edema, pulses intact 4 Neuro: no focal neurological deficits. Test Results: EKG: Sinus rhythm rate of 73, no ST or T-wave changes. Hemoglobin 12.5. Creatinine 1.55. Platelets 123. Troponin negative. Chest x-ray negative. Emergency Department Course and Treatment: Patient given additional aspirin, nitro series given symptom-free on reevaluation. Cardiac workup negative. Creatinine 1.55, creatinine with range from 1.02-1.56. Platelets 123, previous platelets in September is 97. GLORIA scores a 3. Heart scores a 4. He is on Xarelto. He has risk factors. Discussed with Dr. Arevalo for admission for cardiac rule out. Treatment Plan: [] Disposition: Admission Impression: Acute chest pain This note was generated with [employer] dictation software. It may contain incorrect words, spelling, and punctuation that were not noted in review of the chart prior to signing ED Disposition - Plan for ED Patient: Disposition: Acute [facility] Chief Complaint: Chest Pain Diagnosis: Chest pain Referrals: Baldemar Brink MD [Primary Care Provider] - What to do if you have Problems For any increased pain, shortness of breath, bleeding, nausea or vomiting, chest pain, or any unexpected problems, contact your Primary Care Provider. Call [facility] ([phone]) or report to the closest Emergency Room. Call 911 if necessary. 05/04/18 9045 <Electronically signed by Buck Etienne> Date Buck Etienne Cosigner Signature (If Indicated): Date CC: Baldemar Brink MD CHEST 1 VIEW Observed: 05/04/2018 Status: F Source: [place] (PORTABLE) 10:54 PM [facility] REPOSITORY [facility] Imaging Services [address] [place] [address] Chest 1 View (Portable) MR#: [id number] Acct: [id number] Name: ARMAAN GUTHRIE Rep #: [id number] : 1955 M 62 From: Alexis Nelson DO PCP: Baldemar Brink MD Status: REG ER Study: Chest 1 View (Portable) Date of Exam: 05/04/18 Exam# [id number] Ordering Dr: Buck Cheema DO STUDY: X-RAY CHEST REASON FOR EXAM: Male, 62 years old. Chest pain. TECHNIQUE: Single AP portable view of the chest. COMPARISON: September 02, 2017. FINDINGS: Telemetry wires overlie the chest. Lungs are mildly hypoexpanded. There is no acute infiltrate or mass. There is no demonstrated pleural abnormality. Follow-up Normal mediastinum and annamarie. Normal visualized pulmonary arteries. Normal visualized aortic arch and descending thoracic aorta. The thoracic spine is obscured by the mediastinum. Normal visualized ribs, clavicles, and shoulders. There is no demonstrated abnormality of the visualized soft tissue structures of the upper abdomen. RAD/Chest 1 View (Portable) IMPRESSION: Borderline cardiomegaly without acute pulmonary abnormality or major interval change Electronically Signed: Alexis Nelson DO at 23:24 EDT Tel [phone], Service support , CC: Baldemar Brink MD; Buck Cheema Script Writer: Signed CBC W/DIFF, AUTOMATED Collected: 05/04/2018 Status: F Source: [place] 10:50 PM [facility] [place] TYPE CODE TESTS RESULT OUT OF RANGE REFERENCE UNITS LAB L100.1000 4.4-11.0 K/mm3 Low WBC 4.2 LAB L100.1200 4.6-6.2 M/mm3 Low RBC 3.90 LAB L100.1300 13.0-16.5 g/dl Low HGB 12.5 LAB L100.1400 40-54 % Low HCT 37.3 LAB L100.1500 80-94 fL High MCV 95.6 LAB L100.1600 27.0-32.0 pg High MCH 32.1 LAB L100.1700 32-36 g/gl Normal MCHC 33.5 LAB L100.1810 11.6-14.6 % Normal RDW CV 13.9 LAB L100.1820 35.1-43.9 fl High RDW SD 46.9 LAB L100.1900 150-450 K/mm3 Low PLT 123 LAB L100.2000 6.2-12.0 fl Normal MPV 10.9 LAB L100.2100 47-70 % Normal NEUT% 47.5 LAB L100.2200 19-41 % Normal LY% 35.9 LAB L100.2300 0-10 % High MONO% 14.5 LAB L100.2400 0-5 % Normal EO% 1.9 LAB L100.2500 0-1 % Normal BASO% 0.2 LAB L100.2550 0.0-0.9 % Normal IM GRAN % 0.000 Result Comment: IG% - Immature Granulocytes (promyelocytes, myelocytes and metamyelocytes) > 1% indicates that a LEFT SHIFT is Present. LAB L100.2620 2.0-7.7 X10 3/uL Normal Absolute Neut 2.0 LAB L100.2720 0.83-4.51 X10 3/ul Normal Absolute Lymph 1.51 Performed By: #### L100.0100 #### [facility] [address] [place], [place], [address] BASIC METABOLIC Collected: 05/04/2018 Status: F Source: [place] PROFILE (BMP) 10:50 PM [facility] [place] TYPE CODE TESTS RESULT OUT OF RANGE REFERENCE UNITS LAB L501.0100 74-106 mg/dL High GLU 126 Result Comment: Fasting Glucose result greater than or equal to 126 mg/dL suggests DIABETES MELLITUS per A.D.A. criteria. Please note revised GLUCOSE reference range effective 2017. LAB L501.1000 7-18 mg/dL Normal BUN 18 LAB L501.1100 0.70-1.30 mg/dL High CREAT,SERUM 1.55 Result Comment: The validity of the calculated GFR AND GFRAA in patients over 70 years has not been determined. Clinical correlation is essential. LAB L501.1110 >60 mL/min Low EST GFR 49 Result Comment: Non- GFR Calc LAB L501.1115 >60 mL/min Low EST GFR - AA 59 Result Comment: GFR Calc LAB L501.1255 ml/min Normal Estimated CRCL 55.63 LAB L501.1300 10-20 RATIO Normal BUN/CRE 11.6 LAB L501.2200 8.5-10 mg/dL Low .1 CA 8.2 LAB L501.5300 136-14 mmol/L Normal 5 NA 141 LAB L501.5600 3.5-5. mmol/L Normal 1 K 3.5 LAB L501.5900 98-107 mmol/L Normal CL 106 LAB L501.6100 21.0-3 mmol/L Normal 2.0 CO2 29.0 LAB L501.6200 5-15 Normal GAP 6 Performed By: #### L500.2500, L501.4010 #### [facility] [address] [place], [address] TROPONIN-I Collected: 05/04/2018 Status: F Source: [place] 10:50 PM [facility] [place] TYPE CODE TESTS RESULT OUT OF RANGE REFERENCE UNITS LAB L501.4010 <0.045 ng/mL Normal < 0.015 TROPONIN-I Result Comment: TROPONIN-I EXPECTED VALUES <0.045 Negative 0.045 - 0.590 Consistent with Cardiac Damage > OR = 0.600 Critical Value Not every elevated troponin is indicative of SD. These values should be used with clinical judgement in examining the patient's clinical picture for diagnosis. To establish a diagnosis of SD versus myocardial injury, there must be a demonstrated rise and/or fall in the troponin values, in addition to ischemic symptoms, EKG changes, new regional wall motion abnormality, and/or angiographical evidence. PLEASE NOTE: REFERENCE RANGES EDITED 18 Performed By: #### L500.2500, L501.4010 #### [facility] [address] [place], [place], [address] BASIC METABOLIC Collected: 04/20/2018 Status: F Source: [place] PROFILE (BMP) 9:04 AM [facility] [place] TYPE CODE TESTS RESULT OUT OF RANGE REFERENCE UNITS LAB L501.0100 74-106 mg/dL High GLU 117 Result Comment: Fasting Glucose result from 100 to 125 mg/dL suggests IMPAIRED HOMEOSTASIS per A.D.A. criteria. Please note revised GLUCOSE reference range effective 2017. LAB L501.1000 7-18 mg/dL Normal BUN 13 LAB L501.1100 0.70-1.30 mg/dL Normal CREAT,SERUM 1.26 Result Comment: The validity of the calculated GFR AND GFRAA in patients over 70 years has not been determined. Clinical correlation is essential. LAB L501.1110 >60 mL/min Normal EST GFR 62 Result Comment: Non- GFR Calc LAB L501.1115 >60 mL/min Normal EST GFR - AA 75 Result Comment: GFR Calc LAB L501.1300 10-20 RATIO Normal BUN/CRE 10.3 LAB L501.2200 8.5-10.1 mg/dL Low CA 7.9 LAB L501.5300 136-145 mmol/L NA Normal 143 LAB L501.5600 3.5-5.1 mmol/L K Normal 4.1 LAB L501.5900 98-107 mmol/L CL Normal 107 LAB L501.6100 21.0-32.0 mmol/L Normal CO2 28.0 LAB L501.6200 5-15 Normal GAP 8 Performed By: #### L500.2500 #### [facility] [address] [place], [place], [address] PROGRESS Observed: 03/18/2018 Status: COMPLETED Source: [place] 2:27 PM [facility] [place] REPOSITORY HNO ID: [id number] Author: Rachel Herrera Service: (none) Author Type: Physician Fretted String Instrument Repairer Type: Progress Notes Filed: 03/18/2018 2:43 PM Note Text: Patient presents with: Cough: patient is here for cough; sinsu; flu like sx x 3 weeks 62 year old male with c/o URI sx over the last 14 days with Sore throat: Yes. Nasal congestion: Yes. Nasal drip: Yes. Sinus pain/ pressure: Yes. Headache No. Body aches Yes. Ear pain: Yes. Cough: Yes. Production: Yes. Shortness of Breath: Yes. Wheezing: Yes. Fever: Yes. Tmax low grade today. Hasn't checked at home. Hx asthma No. Hx pneumonia No. Smoker: No. OTC meds tried: tylenol. n/a ACTIVE PROBLEM LIST Essential hypertension, benign Hepatitis B Zaid (Obstructive Sleep Apnea) Stroke (Hcc) Tremor Constitutional Obesity Paroxysmal Atrial Fibrillation (Hcc) Cirrhosis of Liver Without Ascites (Hcc) Lgi Bleed Obesity (Bmi 35.0-39.9 Without Comorbidity) Pulmonary Hypertension, Secondary Varicose Vein of Leg Current Outpatient Prescriptions: aspirin, enteric coated (ASPIRIN, ENTERIC COATED) 81 mg EC tablet Take 81 mg by mouth once daily. Disp: Rfl: amiodarone (PACERONE) 200 mg tablet Take by mouth once daily. Disp: Rfl: rivaroxaban (XARELTO) 20 mg tablet Take 20 mg by mouth daily with dinner. Disp: Rfl: pravastatin (PRAVACHOL) 20 mg tablet Take 20 mg by mouth once daily. Disp: Rfl: oxybutynin (DITROPAN) 5 mg tablet Take 1 tablet by mouth twice daily. Disp: 60 tablet Rfl: 3 metoprolol tartrate, short acting, (LOPRESSOR) 100 mg tablet Take 1 tablet by mouth twice daily. Disp: 180 tablet Rfl: 0 amLODIPine (NORVASC) 5 mg tablet Take 1 tablet by mouth once daily. Disp: 90 tablet Rfl: 0 cetirizine (ZYRTEC) 10 mg tablet Take 1 tablet by mouth once daily. Disp: 30 tablet Rfl: 5 sildenafil (VIAGRA) 100 mg tablet Take 1 tablet by mouth as needed. Disp: 2 tablet Rfl: 11 fluticasone (FLONASE) 50 mcg/actuation nasal spray Use 2 Sprays in each nostril once daily. Rinse mouth after use. Disp: 1 Bottle Rfl: 0 hydroCHLOROthiazide (HYDRODIURIL, ESIDRIX) 25 mg tablet Take 1 tablet by mouth once daily. Disp: 90 tablet Rfl: 3 codeine-guaiFENesin (ROBITUSSIN AC) 10-100 mg/5 mL syrup Take 5-10 mL by mouth four times daily as needed for Cough. May cause drowsiness. Disp: 120 mL Rfl: 0 No current facility-administered medications for this visit. ROS: SEE HPI OBJECTIVE: BP 124/78 Pulse 60 Temp 37.7 ?C (99.9 ?F) (Tympanic) Resp 14 Wt 128.4 kg (283 lb) BMI 38.38 kg/m? General appearance: Well appearing, alert, in no acute distress, well-hydrated, well nourished., Head: Normocephalic, no masses, lesions, tenderness or abnormalities; Ears: External ears normal, canals clear, TM's normal Nose/Sinuses: Positive findings: mucosa erythematous and swollen, purulent rhinorrhea Oropharynx: Positive findings: mild oropharyngeal erythema Neck: Supple, no adenopathy; thyroid symmetric, normal size, no bruits Lungs: Lungs clear to auscultation. No wheezing, rhonchi, rales Heart: RRR without murmur, gallop, or rubs. No ectopy ASSESSMENT/PLAN: 1. Bronchitis - ICD9: 490, ICD10: J40 (primary diagnosis) Start doxycycline Use cough medication as needed - CODEINE 10 MG-GUAIFENESIN 100 MG/5 ML ORAL LIQUID 2. Bacterial sinusitis - ICD9: 473.9, 041.9, ICD10: J32.9, B96.89 - Will begin treatment with Doxycyline Follow up in 5-7 days as needed if no improvment ABDULAZIZ EHRRERA PA-C CNOV Observed: 03/18/2018 Status: COMPLETED Source: [place] 2:20 PM [facility] REPOSITORY Office Visit (FAMPWS) ARMAAN GUTHRIE ([id number]) 1955 M [facility] Date Time Provider Department 03/18/18 2:20 PM GEOVANI HERRERA) FAMPWS During your visit today, we recorded the following information about you: Temperature Pulse Respiration Blood pressure 99.9 degrees 60/minute 14/minute 124/78 Weight 128.4 kg ABDULAZIZ HERRERA PA-C 03/18/2018 2:43 PM Signed Patient presents with: Cough: patient is here for cough; sinsu; flu like sx x 3 weeks 62 year old male with c/o URI sx over the last 14 days with Sore throat: Yes. Nasal congestion: Yes. Nasal drip: Yes. Sinus pain/ pressure: Yes. Headache No. Body aches Yes. Ear pain: Yes. Cough: Yes. Production: Yes. Shortness of Breath: Yes. Wheezing: Yes. Fever: Yes. Tmax low grade today. Hasn't checked at home. Hx asthma No. Hx pneumonia No. Smoker: No. OTC meds tried: tylenol. n/a ACTIVE PROBLEM LIST Essential hypertension, benign Hepatitis B Zaid (Obstructive Sleep Apnea) Stroke (Hcc) Tremor Constitutional Obesity Paroxysmal Atrial Fibrillation (Hcc) Cirrhosis of Liver Without Ascites (Hcc) Lgi Bleed Obesity (Bmi 35.0-39.9 Without Comorbidity) Pulmonary Hypertension, Secondary Varicose Vein of Leg Current Outpatient Prescriptions: aspirin, enteric coated (ASPIRIN, ENTERIC COATED) 81 mg EC tablet Take 81 mg by mouth once daily. Disp: Rfl: amiodarone (PACERONE) 200 mg tablet Take by mouth once daily. Disp: Rfl: rivaroxaban (XARELTO) 20 mg tablet Take 20 mg by mouth daily with dinner. Disp: Rfl: pravastatin (PRAVACHOL) 20 mg tablet Take 20 mg by mouth once daily. Disp: Rfl: oxybutynin (DITROPAN) 5 mg tablet Take 1 tablet by mouth twice daily. Disp: 60 tablet Rfl: 3 metoprolol tartrate, short acting, (LOPRESSOR) 100 mg tablet Take 1 tablet by mouth twice daily. Disp: 180 tablet Rfl: 0 amLODIPine (NORVASC) 5 mg tablet Take 1 tablet by mouth once daily. Disp: 90 tablet Rfl: 0 cetirizine (ZYRTEC) 10 mg tablet Take 1 tablet by mouth once daily. Disp: 30 tablet Rfl: 5 sildenafil (VIAGRA) 100 mg tablet Take 1 tablet by mouth as needed. Disp: 2 tablet Rfl: 11 fluticasone (FLONASE) 50 mcg/actuation nasal spray Use 2 Sprays in each nostril once daily. Rinse mouth after use. Disp: 1 Bottle Rfl: 0 hydroCHLOROthiazide (HYDRODIURIL, ESIDRIX) 25 mg tablet Take 1 tablet by mouth once daily. Disp: 90 tablet Rfl: 3 codeine-guaiFENesin (ROBITUSSIN AC) 10-100 mg/5 mL syrup Take 5-10 mL by mouth four times daily as needed for Cough. May cause drowsiness. Disp: 120 mL Rfl: 0 No current facility-administered medications for this visit. ROS: SEE HPI OBJECTIVE: BP 124/78 Pulse 60 Temp 37.7 ?C (99.9 ?F) (Tympanic) Resp 14 Wt 128.4 kg (283 lb) BMI 38.38 kg/m? General appearance: Well appearing, alert, in no acute distress, well-hydrated, well nourished., Head: Normocephalic, no masses, lesions, tenderness or abnormalities; Ears: External ears normal, canals clear, TM's normal Nose/Sinuses: Positive findings: mucosa erythematous and swollen, purulent rhinorrhea Oropharynx: Positive findings: mild oropharyngeal erythema Neck: Supple, no adenopathy; thyroid symmetric, normal size, no bruits Lungs: Lungs clear to auscultation. No wheezing, rhonchi, rales Heart: RRR without murmur, gallop, or rubs. No ectopy ASSESSMENT/PLAN: 1. Bronchitis - ICD9: 490, ICD10: J40 (primary diagnosis) Start doxycycline Use cough medication as needed - CODEINE 10 MG-GUAIFENESIN 100 MG/5 ML ORAL LIQUID 2. Bacterial sinusitis - ICD9: 473.9, 041.9, ICD10: J32.9, B96.89 - Will begin treatment with Doxycyline Follow up in 5-7 days as needed if no improvment YAJAIRA ROLAND PA-C 03/18/2018 2:38 PM Signed Take all of the antibiotic as directed per prescription. If you should breakout in a rash, stop the medicine and call the office. Any antibiotic has the potential to cause diarrhea due to alteration in the normal bacterial oscar of the gut. This can be reduced by eating yogurt with active cultures daily while on the medication. If diarrhea becomes severe (watery, large volumes or more than 3-4/day) call the office. Women may experience yeast vaginitis due to alteration in the vaginal oscar. Symptoms include vaginal itching, irritation, and often a clumpy white discharge. If this occurs, there are several effective over the counter remedies available, including one-dose treatments. If these are unsuccessful, call the office. Antibiotics may interfer with control. If you are on oral contraceptives, use another form of protection (condoms, foams, jellies, diaphragm) for the next 1 month. ABDULAZIZ HERRERA PA-C Referring Provider: SELF [200] Allergies As of Date: 03/18/2018 Noted Allergy Reaction CEFTIN (CEFUROXIME) 07/01/2005 2 - Rash LISINOPRIL 11/02/2013 3 - Cough PENICILLINS 07/01/2005 4 - Hives VICODIN (HYDROCODONE-ACETAMINOPHE*07/01/2005 2 - Rash Date Reviewed: 03/18/2018 Reviewed by: Ines Aden Ma - Fully Assessed Reason for Visit: Cough [28] Cmt: patient is here for cough; sinsu; flu like sx x 3 weeks Primary Visit Diagnosis:Bronchitis [J40] Other Visit Diagnosis:Bacterial sinusitis [J32.9, B96.89] Order(s):doxycycline monohydrate (MONODOX) 100 mg capsuleTake 1 capsule by mouth twice daily for 10 days.Disp: 20 capsuleRfl: 0 codeine-guaiFENesin (ROBITUSSIN AC) 10-100 mg/5 mL syrupTake 5-10 mL by mouth four times daily as needed for Cough for up to 7 days. May cause drowsiness.Disp: 120 mLRfl: 0 Prescriptions as of 03/18/2018 Sig: ASPIRIN 81 MG TABLET,DELAYED * Take 81 mg by mouth once asad* AMIODARONE 200 MG TABLET Take by mouth once daily. RIVAROXABAN 20 MG TABLET Take 20 mg by mouth daily wit* PRAVASTATIN 20 MG TABLET Take 20 mg by mouth once asad* OXYBUTYNIN CHLORIDE 5 MG TABL* Take 1 tablet by mouth twice * METOPROLOL TARTRATE 100 MG TA* Take 1 tablet by mouth twice * AMLODIPINE 5 MG TABLET Take 1 tablet by mouth once d* CETIRIZINE 10 MG TABLET Take 1 tablet by mouth once d* SILDENAFIL 100 MG TABLET Take 1 tablet by mouth as nee* DOXYCYCLINE MONOHYDRATE 100 M* Take 1 capsule by mouth twice* CODEINE 10 MG-GUAIFENESIN 100* Take 5-10 mL by mouth four ti* FLUTICASONE 50 MCG/ACTUATION * Use 2 Sprays in each nostril * HYDROCHLOROTHIAZIDE 25 MG TAB* Take 1 tablet by mouth once d* Problem List As Of Date 03/18/2018 Noted Resolved Essential hypertension, benign [I10] INVALID FOR* Priority: A More... More... 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 More... Headache(784.0) [R51] 03/24/2014 More... Atrial fibrillation (HCC) [I48.91] INVALID FOR*10/02/2015 Priority: A More... [I50.9] INVALID FOR* More... More... More... Abdominal pain, unspecified site [R10.9] INVALID FOR*10/26/2014 More... More... Hepatitis B [B19.10] INVALID FOR* More... More... Rectal bleeding [K62.5] INVALID FOR*08/11/2015 ZAID (obstructive sleep apnea) [G47.33] INVALID FOR* Vertigo [R42] INVALID FOR*11/21/2015 Stroke (HCC) [I63.9] INVALID FOR* Tremor [R25.1] INVALID FOR* Constitutional obesity [E66.8] INVALID FOR* Paroxysmal atrial fibrillation (HCC) [I48.0] INVALID FOR* More... More... Cirrhosis of liver without ascites (HCC) [K74.6*INVALID FOR* More... LGI bleed [K92.2] INVALID FOR* Obesity (BMI 35.0-39.9 without comorbidity) [E6*INVALID FOR* Pulmonary hypertension, secondary (HCC) [PCJ675*INVALID FOR* Varicose vein of leg [I83.90] INVALID FOR* More... Other instructions from your clinician: Take all of the antibiotic as directed per prescription. If you should breakout in a rash, stop the medicine and call the office. Any antibiotic has the potential to cause diarrhea due to alteration in the normal bacterial oscar of the gut. This can be reduced by eating yogurt with active cultures daily while on the medication. If diarrhea becomes severe (watery, large volumes or more than 3-4/day) call the office. Women may experience yeast vaginitis due to alteration in the vaginal oscar. Symptoms include vaginal itching, irritation, and often a clumpy white discharge. If this occurs, there are several effective over the counter remedies available, including one-dose treatments. If these are unsuccessful, call the office. Antibiotics may interfer with control. If you are on oral contraceptives, use another form of protection (condoms, foams, jellies, diaphragm) for the next 1 month. ABDULAZIZ HERRERA PA-C Prescriptions ordered this encounter Disp Refills Start End DOXYCYCLINE MONOHYDRATE 100 MG CAPSU* 20 c* 0 03/18/2018 03/28/2018 Route: ORAL Sig: Take 1 capsule by mouth twice daily for 10 days. CODEINE 10 MG-GUAIFENESIN 100 MG/5 M* 120 * 0 03/18/2018 03/25/2018 Class: Print RX Route: ORAL Sig: Take 5-10 mL by mouth four times daily as needed for Cough for up to 7 days. May cause drowsiness. Medications Discontinued During This Encounter codeine-guaiFENesin (ROBITUSSIN AC) * 120 * 0 04/24/2017 03/18/2018 Class: Print RX Route: ORAL Sig: Take 5-10 mL by mouth four times daily as needed for Cough. May cause drowsiness. Disc: Reason for discontinue is not on file. Disposition: Return if symptoms worsen or fail to improve. Follow-up and Disposition History Recorded Encounter Status:Closed by ABDULAZIZ GARZA on 03/18/18 BASIC METABOLIC Collected: 02/03/2018 Status: F Source: [place] PROFILE (BMP) 12:21 PM [facility] [place] TYPE CODE TESTS RESULT OUT OF RANGE REFERENCE UNITS LAB L501.0100 74-106 mg/dL Normal GLU 100 Result Comment: Fasting Glucose result from 100 to 125 mg/dL suggests IMPAIRED HOMEOSTASIS per A.D.A. criteria. Please note revised GLUCOSE reference range effective 2017. LAB L501.1000 7-18 mg/dL High BUN 22 LAB L501.1100 0.70-1.30 mg/dL High CREAT,SERUM 1.56 Result Comment: The validity of the calculated GFR AND GFRAA in patients over 70 years has not been determined. Clinical correlation is essential. LAB L501.1110 >60 mL/min Low EST GFR 48 Result Comment: Non- GFR Calc LAB L501.1115 >60 mL/min Low EST GFR - AA 59 Result Comment: GFR Calc LAB L501.1300 10-20 RATIO Normal BUN/CRE 14.1 LAB L501.2200 8.5-10.1 mg/dL Low CA 8.3 LAB L501.5300 136-145 mmol/L NA Normal 141 LAB L501.5600 3.5-5.1 mmol/L K Normal 4.3 LAB L501.5900 98-107 mmol/L High CL 108 LAB L501.6100 21.0-32.0 mmol/L Normal CO2 27.0 LAB L501.6200 5-15 Normal GAP 6 Performed By: #### L500.2500 #### [facility] [address] [place] [address]. [place], [address] PROGRESS Observed: 12/26/2017 Status: COMPLETED Source: [place] 9:34 AM [facility] REPOSITORY HNO ID: [id number] Author: Martin Garsia Service: (none) Author Type: Physician Fretted String Instrument Repairer Type: Progress Notes Filed: 12/26/2017 11:42 AM Note Text: 12/26/2017 Patient presents with: bilateral ear pain and diarrhea: ear pain x 4-5 days and diarrhea off and on for several weeks SUBJECTIVE: This is a 62 year old that is here today for Complaint(s) of diarrhea x several weeks. + 3-4 episodes of watery diarrhea a day. No blood in the stools. Denies fever/chills, abdominal pain, vomiting, blood in stools. No recent abx use. No new medications. No recent abx other than abx he had with his outpatient surgery for his knee. PMH of hepatitis B, cirrhosis of liver on PMH. Has not had recent f/u with GI. Previously following with Dr. Kirkland. He did see IM recently who ordered a CT abdomen/pelvis from some right lower abdominal/pelvic discomfort with bending over. Ear pain SOCRATES x 4-5 days. Always had diminished hearing in the left ear. + diminished hearing in both ears. Denies cold symptoms. PAST MEDICAL HISTORY Diagnosis Date - Arrhythmia - Atrial fibrillation (HCC) - Bilateral edema of lower extremity 04/02/2016 - CHF (congestive heart failure) (HCC) - Detached retina 12/26/2014 2002 he had a surgery done. - Diverticulosis of colon (without mention of hemorrhage) Diverticulosis. 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 amiodarone (PACERONE) 200 mg tablet Take by mouth once daily. rivaroxaban (XARELTO) 20 mg tablet Take 20 mg by mouth daily with dinner. pravastatin (PRAVACHOL) 20 mg tablet Take 20 mg by mouth once daily. oxybutynin (DITROPAN) 5 mg tablet Take 1 tablet by mouth twice daily. metoprolol tartrate, short acting, (LOPRESSOR) 100 mg tablet Take 1 tablet by mouth twice daily. amLODIPine (NORVASC) 5 mg tablet Take 1 tablet by mouth once daily. codeine-guaiFENesin (ROBITUSSIN AC) 10-100 mg/5 mL syrup Take 5-10 mL by mouth four times daily as needed for Cough. May cause drowsiness. cetirizine (ZYRTEC) 10 mg tablet Take 1 tablet by mouth once daily. sildenafil (VIAGRA) 100 mg tablet Take 1 tablet by mouth as needed. hydroCHLOROthiazide (HYDRODIURIL, ESIDRIX) 25 mg tablet Take 1 tablet by mouth once daily. No current facility-administered medications for this visit. 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 1 adopted daughter. He enjoys working with tools. REVIEW OF SYSTEMS All other reviewed and negative other than HPI. OBJECTIVE: BP 142/80 Pulse 62 Temp 36.6 ?C (97.8 ?F) (Tympanic) Resp 16 Wt 133.7 kg (294 lb 12.8 oz) BMI 39.98 kg/m2 APPEARANCE Well appearing, alert, in no acute distress, well-hydrated, well nourished. EYES PERRLA, conjunctiva and sclera normal. EARS External ears normal, right canal mildly tender with mild edema. TMs normal SOCRATES. NOSE/SINUS Nares normal. Septum midline. Mucosa normal. No drainage or sinus tenderness. THROAT normal, no erythema NECK Supple, no adenopathy; ABDOMEN bowel sounds normoactive, soft, non-tender, non-distended, without organomegaly or palpable masses, no tenderness to palpation ASSESSMENT/PLAN: 1. Acute otitis externa of right ear, unspecified type - ICD9: 380.10, ICD10: H60.501 (primary diagnosis) F/u with PCP or ENT if persisting, sooner if worsening - FLUTICASONE 50 MCG/ACTUATION NASAL SPRAY,SUSPENSION - [id number] 3.5 MG-10,000 UNIT/ML-1 % EAR DROPS,SUSP 2. Diarrhea, unspecified type - ICD9: 787.91, ICD10: R19.7 F/u with IM, CT scheduled for next week. Schedule for f/u with GI as well. Reviewed red flags and when to seek care sooner. [place]/BRAT diet. - C. DIFFICILE PCR - ENTERIC BACTERIAL PANEL BY PCR - CBC + DIFF - COMP METABOLIC PANEL 3. Cirrhosis of liver without ascites, unspecified hepatic cirrhosis type (HCC) - ICD9: 571.5, ICD10: K74.60 - CONSULT TO GASTROENTEROLOGY The patient indicates understanding of these issues and agrees with the plan. Reviewed red flags and when to seek care sooner. Martin Garsia PA-C 12/26/2017 CNOV Observed: 12/26/2017 Status: COMPLETED Source: [place] 9:15 AM [facility] REPOSITORY Office Visit (UCWSTR) ARMAAN GUTHRIE ([id number]) 1955 M [facility] Date Time Provider Department 12/26/17 9:15 AM MARTIN GARSIA) WSTR During your visit today, we recorded the following information about you: Temperature Pulse Respiration Blood pressure 97.8 degrees 62/minute 16/minute 142/80 Weight 133.7 kg Martin Garsia PA-C 12/26/2017 11:42 AM Signed 12/26/2017 Patient presents with: bilateral ear pain and diarrhea: ear pain x 4-5 days and diarrhea off and on for several weeks SUBJECTIVE: This is a 62 year old that is here today for Complaint(s) of diarrhea x several weeks. + 3-4 episodes of watery diarrhea a day. No blood in the stools. Denies fever/chills, abdominal pain, vomiting, blood in stools. No recent abx use. No new medications. No recent abx other than abx he had with his outpatient surgery for his knee. PMH of hepatitis B, cirrhosis of liver on PMH. Has not had recent f/u with GI. Previously following with Dr. Kirkland. He did see IM recently who ordered a CT abdomen/pelvis from some right lower abdominal/pelvic discomfort with bending over. Ear pain SOCRATES x 4-5 days. Always had diminished hearing in the left ear. + diminished hearing in both ears. Denies cold symptoms. PAST MEDICAL HISTORY Diagnosis Date - Arrhythmia - Atrial fibrillation (HCC) - Bilateral edema of lower extremity 04/02/2016 - CHF (congestive heart failure) ([facility]) - Detached retina 12/26/20142001 he had a surgery done. - Diverticulosis of colon (without mention of hemorrhage) Diverticulosis. 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 - Snoring - SOB (shortness of breath) 04/25/2014 - Social phobia with panic attacks - Stroke ([facility]) - Syphilis - TREMOR NEC 07/06/2005 - Unspecified hemorrhoids without mention of complication Hemorrhoids ALLERGIES Ceftin [Cefuroxime]; Lisinopril; Penicillins; Vicodin [Hydrocodone-Acetaminophen] MEDICATIONS Current Outpatient Prescriptions: aspirin, enteric coated (ASPIRIN, ENTERIC COATED) 81 mg EC tablet Take 81 mg by mouth once daily. amiodarone (PACERONE) 200 mg tablet Take by mouth once daily. rivaroxaban (XARELTO) 20 mg tablet Take 20 mg by mouth daily with dinner. pravastatin (PRAVACHOL) 20 mg tablet Take 20 mg by mouth once daily. oxybutynin (DITROPAN) 5 mg tablet Take 1 tablet by mouth twice daily. metoprolol tartrate, short acting, (LOPRESSOR) 100 mg tablet Take 1 tablet by mouth twice daily. amLODIPine (NORVASC) 5 mg tablet Take 1 tablet by mouth once daily. codeine-guaiFENesin (ROBITUSSIN AC) 10-100 mg/5 mL syrup Take 5-10 mL by mouth four times daily as needed for Cough. May cause drowsiness. cetirizine (ZYRTEC) 10 mg tablet Take 1 tablet by mouth once daily. sildenafil (VIAGRA) 100 mg tablet Take 1 tablet by mouth as needed. hydroCHLOROthiazide (HYDRODIURIL, ESIDRIX) 25 mg tablet Take 1 tablet by mouth once daily. No current facility-administered medications for this visit. 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 1 adopted daughter. He enjoys working with tools. REVIEW OF SYSTEMS All other reviewed and negative other than HPI. OBJECTIVE: BP 142/80 Pulse 62 Temp 36.6 ?C (97.8 ?F) (Tympanic) Resp 16 Wt 133.7 kg (294 lb 12.8 oz) BMI 39.98 kg/m2 APPEARANCE Well appearing, alert, in no acute distress, well- hydrated, well nourished. EYES PERRLA, conjunctiva and sclera normal. EARS External ears normal, right canal mildly tender with mild edema. TMs normal SOCRATES. NOSE/SINUS Nares normal. Septum midline. Mucosa normal. No drainage or sinus tenderness. THROAT normal, no erythema NECK Supple, no adenopathy; ABDOMEN bowel sounds normoactive, soft, non-tender, non-distended, without organomegaly or palpable masses, no tenderness to palpation ASSESSMENT/PLAN: 1. Acute otitis externa of right ear, unspecified type - ICD9: 380.10, ICD10: H60.501 (primary diagnosis) F/u with PCP or ENT if persisting, sooner if worsening - FLUTICASONE 50 MCG/ACTUATION NASAL SPRAY,SUSPENSION - [id number] 3.5 MG-10,000 UNIT/ML-1 % EAR DROPS,SUSP 2. Diarrhea, unspecified type - ICD9: 787.91, ICD10: R19.7 F/u with IM, CT scheduled for next week. Schedule for f/u with GI as well. Reviewed red flags and when to seek care sooner. [place]/BRAT diet. - C. DIFFICILE PCR - ENTERIC BACTERIAL PANEL BY PCR - CBC + DIFF - COMP METABOLIC PANEL 3. Cirrhosis of liver without ascites, unspecified hepatic cirrhosis type (HCC) - ICD9: 571.5, ICD10: K74.60 - CONSULT TO GASTROENTEROLOGY The patient indicates understanding of these issues and agrees with the plan. Reviewed red flags and when to seek care sooner. Martin Garsia PA-C 12/26/2017 Referring Provider: SELF [200] Allergies As of Date: 12/26/2017 Noted Allergy Reaction CEFTIN (CEFUROXIME) 07/01/2005 2 - Rash LISINOPRIL 11/02/2013 3 - Cough PENICILLINS 07/01/2005 4 - Hives VICODIN (HYDROCODONE-ACETAMINOPHE*07/01/2005 2 - Rash Date Reviewed: 12/26/2017 Reviewed by: Mirlande Carcamo LPN - Fully Assessed Reason for Visit: bilateral ear pain and diarrhea [Other] Cmt: ear pain x 4-5 days and diarrhea off and on for several weeks Primary Visit Diagnosis:Acute otitis externa of right ear, unspecified type [H60.501] Other Visit Diagnoses:Diarrhea, unspecified type [R19.7] Cirrhosis of liver without ascites, unspecified hepatic cirrhosis type (HCC) [K74.60] Order(s):fluticasone (FLONASE) 50 mcg/actuation nasal sprayUse 2 Sprays in each nostril once daily. Rinse mouth after use.Disp: 1 BottleRfl: 0 ynipjfxf-nmoqrlupm-rmshucothpouui (CORTISPORIN) 3.5-10,000-1 mg/mL-unit/mL-% otic suspensionUse 3 Drops in the right ear four times daily for 7 days.Disp: 1 BottleRfl: 0 C. DIFFICILE PCR [SQCDPCR] Order #: [id number] ENTERIC BACTERIAL PANEL BY PCR [SQSTLPCR] Order #: [id number] FUTURE CBC + DIFF [SQCBCDIF] Order #: [id number] FUTURE COMP METABOLIC PANEL [SQCMP] Order #: [id number] FUTURE CONSULT TO GASTROENTEROLOGY [9010] Order #: [id number]: 1 Prescriptions as of 12/26/2017 Sig: ASPIRIN 81 MG TABLET,DELAYED * Take 81 mg by mouth once asad* AMIODARONE 200 MG TABLET Take by mouth once daily. RIVAROXABAN 20 MG TABLET Take 20 mg by mouth daily wit* PRAVASTATIN 20 MG TABLET Take 20 mg by mouth once asad* OXYBUTYNIN CHLORIDE 5 MG TABL* Take 1 tablet by mouth twice * METOPROLOL TARTRATE 100 MG TA* Take 1 tablet by mouth twice * AMLODIPINE 5 MG TABLET Take 1 tablet by mouth once d* CODEINE 10 MG-GUAIFENESIN 100* Take 5-10 mL by mouth four ti* CETIRIZINE 10 MG TABLET Take 1 tablet by mouth once d* SILDENAFIL 100 MG TABLET Take 1 tablet by mouth as nee* FLUTICASONE 50 MCG/ACTUATION * Use 2 Sprays in each nostril * VFMTEFXI-SBZLPTOFZ-OXONJFPUA * Use 3 Drops in the right ear * HYDROCHLOROTHIAZIDE 25 MG TAB* Take 1 tablet by mouth once d* Problem List As Of Date 12/26/2017 Noted Resolved Essential hypertension, benign [I10] INVALID FOR* Priority: A More... More... 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 More... Headache(784.0) [R51] 03/24/2014 More... Atrial fibrillation (HCC) [I48.91] INVALID FOR*10/02/2015 Priority: A More... [I50.9] INVALID FOR* More... More... More... Abdominal pain, unspecified site [R10.9] INVALID FOR*10/26/2014 More... More... Hepatitis B [B19.10] INVALID FOR* More... More... Rectal bleeding [K62.5] INVALID FOR*08/11/2015 ZAID (obstructive sleep apnea) [G47.33] INVALID FOR* Vertigo [R42] INVALID FOR*11/21/2015 Stroke (HCC) [I63.9] INVALID FOR* Tremor [R25.1] INVALID FOR* Constitutional obesity [E66.8] INVALID FOR* Paroxysmal atrial fibrillation (HCC) [I48.0] INVALID FOR* More... More... Cirrhosis of liver without ascites (HCC) [K74.6*INVALID FOR* More... LGI bleed [K92.2] INVALID FOR* Obesity (BMI 35.0-39.9 without comorbidity) [E6*INVALID FOR* Pulmonary hypertension, secondary (HCC) [KUO308*INVALID FOR* Varicose vein of leg [I83.90] INVALID FOR* More... Prescriptions ordered this encounter Disp Refills Start End FLUTICASONE 50 MCG/ACTUATION NASAL S* 1 Omkar* 0 12/26/2017 Route: EACH NOSTRIL Sig: Use 2 Sprays in each nostril once daily. Rinse mouth after use. FYRAOQCT-DZLAEDVLE-HPOWYYEWY 3.5 MG-* 1 Omkar* 0 12/26/2017 01/02/2018 Route: RIGHT EAR Sig: Use 3 Drops in the right ear four times daily for 7 days. Encounter Status:Closed by MARTIN GARSIA PA-C on 12/26/17 CNOV Observed: 12/23/2017 Status: COMPLETED Source: [place] 12:20 PM [facility] REPOSITORY Office Visit (INTMWS) ARMAAN GUTHRIE ([id number]) 1955 M [facility] Date Time Provider Department 12/23/17 12:20 PM NOMAN ALLEN) INTMWS During your visit today, we recorded the following information about you: Pulse Respiration Blood pressure Weight 72/minute 18/minute 130/84 132.9 kg Noman Allen APRN.CNS, APRN.CNS 12/23/2017 1:12 PM Signed OUTPATIENT VISIT DATE December 23, 2017 OUTPATIENT VISIT TYPE ESTABLISHED PRIMARY CARE PHYSICIAN: BALDEMAR BRINK MD CHIEF COMPLAINT: Patient presents with: Abdominal Pain: R lower mid History of Present Illness: Armaan Guthrie is a 62 year old male who was last seen 11/2017 in . He has been seen in the past for ACTIVE PROBLEM LIST Essential hypertension, benign Hepatitis B Zaid (Obstructive Sleep Apnea) Stroke (Hcc) Tremor Constitutional Obesity Paroxysmal Atrial Fibrillation (Hcc) Cirrhosis of Liver Without Ascites (Hcc) Lgi Bleed Obesity (Bmi 35.0-39.9 Without Comorbidity) Pulmonary Hypertension, Secondary Varicose Vein of Leg He reports remaining really active most of the time. Does report heavy lifting a few weeks ago due to transmission with one of the person. He reports right lower abdominal or upper pelvis/inguinal area with pain that is increased with bending over squatting down, lifting straining or coughing. nNo symptoms of bowel obstruction, no nausea or vomiting. He is status post right inguinal hernia repair with mesh in 2012 and left inguinal hernia repair with [place] [address] Mohan. ~25 lbs weight gain over last year. Reports recently stopped drinking soda due to weight gain. No recent hospital or ED visits. No new medical problems or medications. Able to obtain medications. No problems with taking medications or note side effects. PAST MEDICAL HISTORY Diagnosis Date - Arrhythmia - Atrial fibrillation (HCC) - Bilateral edema of lower extremity 04/02/2016 - CHF (congestive heart failure) (HCC) - Detached retina 12/26/20142001 he had a surgery done. - Diverticulosis of colon (without mention of hemorrhage) Diverticulosis. 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 - Snoring - SOB (shortness of breath) 04/25/2014 - Social phobia with panic attacks - Stroke ([facility]) - Syphilis - TREMOR NEC 07/06/2005 - Unspecified hemorrhoids without mention of complication Hemorrhoids PAST SURGICAL HISTORY Procedure Laterality Date - COLONOSCOP W/ OR W/O [facility] SPEC 10/26/13 Repeat 2023 - COLONOSCOP W/ OR W/O [facility] SPEC 08/11/15 Colonoscopy - COLONOSCOPY 11/27/01 - EGD W/O OR W/BRUSH/WASH 10/21/2014 EGD - HEART SURGERY 2014 cardioversion - HEMORRHOID: RUBBERBAND, SINGLE/MULTIPLE 09/2015 - LAP REPAIR INTIAL INGUINAL HERNIA 07/29/13 right - LAP REPAIR INTIAL INGUINAL HERNIA Left 04/06/2015 - PAST SURGICAL HISTORY OF 09/2001 LEFT EAR KD REPLACE BONE - PAST SURGICAL HISTORY OF 11/2001 REPEAT LEFT EAR DK - PAST SURGICAL HISTORY OF teeth pulled - PAST SURGICAL HISTORY OF 2005 detatched retenia right eye and muscle repair. 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 - REPAIR ING HERNIA,5+Y/O,REDUCIBL 1989 LEFT - VASECTOMY FAMILY HISTORY Problem Relation Age of Onset - Coronary Artery Disease Mother CABG - anemia [OTHER] Mother - Cancer Father LUNG - Emphysema Father - IBS [OTHER] Father - bipolar [OTHER] Sister - Diabetes Daughter - Stroke No Family History - Heart Daughter myocarditis - Encephalocele [OTHER] Daughter Social History Substance Use Topics - Smoking status: Never Smoker - Smokeless tobacco: Never Used - Alcohol use No ALLERGIES: ALLERGIES Allergen Reactions - Ceftin [Cefuroxime] Rash - Lisinopril Cough - Penicillins Hives - Vicodin [Hydrocodon* Rash MEDICATIONS enteric contrast (radiology procedure) Take 1 Each by mouth one time only for [address] ABD/PEL WO Routine order Administer, As Directed One Time Only, via Oral, Rectal, both Oral and Rectal, Enteric Tube, Stoma or Indwelling Catheter, Enteric Contrast as designated per enteric contrast guidelines aspirin, enteric coated (ASPIRIN, ENTERIC COATED) 81 mg EC tablet Take 81 mg by mouth once daily. amiodarone (PACERONE) 200 mg tablet Take by mouth once daily. rivaroxaban (XARELTO) 20 mg tablet Take 20 mg by mouth daily with dinner. pravastatin (PRAVACHOL) 20 mg tablet Take 20 mg by mouth once daily. oxybutynin (DITROPAN) 5 mg tablet Take 1 tablet by mouth twice daily. metoprolol tartrate, short acting, (LOPRESSOR) 100 mg tablet Take 1 tablet by mouth twice daily. amLODIPine (NORVASC) 5 mg tablet Take 1 tablet by mouth once daily. hydroCHLOROthiazide (HYDRODIURIL, ESIDRIX) 25 mg tablet Take 1 tablet by mouth once daily. codeine-guaiFENesin (ROBITUSSIN AC) 10-100 mg/5 mL syrup Take 5-10 mL by mouth four times daily as needed for Cough. May cause drowsiness. cetirizine (ZYRTEC) 10 mg tablet Take 1 tablet by mouth once daily. sildenafil (VIAGRA) 100 mg tablet Take 1 tablet by mouth as needed. REVIEW OF SYSTEMS: GENERAL: Negative for: Weight loss or gain, Fever or Chills, Weakness and Sleep difficulties. Physical Examination: BP 130/84 Pulse 72 Resp 18 Wt 293 lb (132.9kg) Extended Vitals not filed for this encounter. General appearance: Well appearing, alert, in no acute distress, well-hydrated, well nourished. Skin: Skin color, texture, turgor normal, no suspicious rashes or lesions Abdomen: Abdomen soft, some RLQ tenderness on palpation, no appreciable hernia/mass. Bowel sounds normal. No masses, organomegaly Neuro: Gait normal. Sensation grossly intact. Reviewed chart, outside records, tests I personally interviewed, confirmed and edited the above information if obtained by others. TESTING: Glucose (mg/dL) Date Value 06/03/2017 101 Potassium (mmol/L) Date Value 06/03/2017 3.8 Sodium (mmol/L) Date Value 06/03/2017 136 Chloride (mmol/L) Date Value 06/03/2017 100 CO2 (mmol/L) Date Value 06/03/2017 24 Creatinine (mg/dL) Date Value 06/03/2017 0.93 BUN (mg/dL) Date Value 06/03/2017 11 Anion Gap (mmol/L) Date Value 06/03/2017 12 Calcium (mg/dL) Date Value 06/03/2017 9.0 Glucose (mg/dL) Date Value 06/03/2017 101 Potassium (mmol/L) Date Value 06/03/2017 3.8 Sodium (mmol/L) Date Value 06/03/2017 136 Chloride (mmol/L) Date Value 06/03/2017 100 CO2 (mmol/L) Date Value 06/03/2017 24 Creatinine (mg/dL) Date Value 06/03/2017 0.93 BUN (mg/dL) Date Value 06/03/2017 11 Anion Gap (mmol/L) Date Value 06/03/2017 12 Calcium (mg/dL) Date Value 06/03/2017 9.0 Protein, Total (g/dL) Date Value 06/03/2017 7.3 Albumin (g/dL) Date Value 06/03/2017 3.5 Bilirubin, Total (mg/dL) Date Value 06/03/2017 1.5 Alkaline Phosphatase (U/L) Date Value 06/03/2017 132 AST (U/L) Date Value 06/03/2017 47 ALT (U/L) Date Value 06/03/2017 37 Hemoglobin (g/dL) Date Value 07/17/2016 14.1 Hematocrit (%) Date Value 07/17/2016 41.7 WBC (k/uL) Date Value 07/17/2016 9.63 Cholesterol, Total (mg/dL) Date Value 06/03/2017 158 HDL Cholesterol (mg/dL) Date Value 06/03/2017 56 LDL Cholesterol (mg/dL) Date Value 06/03/2017 85 Triglyceride (mg/dL) Date Value 06/03/2017 86 Hemoglobin A1C Date Value Ref Range Status 11/08/2014 5.6 4.0 - 6.0 % Final Comment: [place] [employer] guidelines indicate that patients with HgbA1c in the range 5.7-6.4% are at increased risk for development of diabetes, and intervention by lifestyle modification may be beneficial. HgbA1c greater or equal to 6.5% is considered diagnostic of diabetes. HBA1C, Crissy Date Value Ref Range Status 12/04/2010 5.6 4.0 - 6.0 % Final Comment: DANNY AKERS Ejection Fraction - Result: 60 % Date: 06/06/2009 Time: 08:35:00 IMPRESSION: Mr. Guthrie is a 62 year old man With history of bilateral inguinal hernia repair with mesh presents for Right lower quadrant and right inguinal area pain present for a few weeks increased with activity such as lifting straining or coughing. He is status post After my examination and review of data, I make the following recommendations. PLAN AND RECOMMENDATIONS: 1. H/O bilateral inguinal hernia repair - ICD9: V45.89, ICD10: Z98.890, Z87.19 (primary diagnosis) - CT ABD/PEL WO IVCON - ENTERIC CONTRAST (RADIOLOGY PROCEDURE) - CONSULT TO GENERAL SURGERY 2. Right lower quadrant abdominal pain - ICD9: 789.03, ICD10: R10.31 - CT ABD/PEL WO IVCON - ENTERIC CONTRAST (RADIOLOGY PROCEDURE) - CONSULT TO GENERAL SURGERY Concern for inguinal hernia. Discussed when to seek urgent care. Advised to go to ER if develops chest pain, shortness of breath, or severe worsening of symptoms. Discussed risks, benefits, alternatives, and potential side effects of medications. Mr. Guthrie expressed understanding and agreed with the plan. Noman Allen APRN.BEE RAISER Referring Provider: SELF [200] Allergies As of Date: 12/23/2017 Noted Allergy Reaction CEFTIN (CEFUROXIME) 07/01/2005 2 - Rash LISINOPRIL 11/02/2013 3 - Cough PENICILLINS 07/01/2005 4 - Hives VICODIN (HYDROCODONE-ACETAMINOPHE*07/01/2005 2 - Rash Date Reviewed: 12/23/2017 Reviewed by: Kirsty Patel LPN - Fully Assessed Reason for Visit: Abdominal Pain [1] Cmt: R lower mid Primary Visit Diagnosis:H/O bilateral inguinal hernia repair [Z98.890, Z87.19] Other Visit Diagnosis:Right lower quadrant abdominal pain [R10.31] Order(s):CT ABD/PEL WO IVCON [[id number]] Order #: [id number] FUTURE enteric contrast (radiology procedure)Take 1 Each by mouth one time only for [address] ABD/PEL WO Routine order Administer, As Directed One Time Only, via Oral, Rectal, both Oral and Rectal, Enteric Tube, Stoma or Indwelling Catheter, Enteric Contrast as designated per enteric contrast guidelinesDisp: 1 EachRfl: 0 CONSULT TO GENERAL SURGERY [9011] Order #: [id number]: 1 Prescriptions as of 12/23/2017 Sig: ENTERIC CONTRAST (RADIOLOGY P* Take 1 Each by mouth one time* ASPIRIN 81 MG TABLET,DELAYED * Take 81 mg by mouth once asad* AMIODARONE 200 MG TABLET Take by mouth once daily. RIVAROXABAN 20 MG TABLET Take 20 mg by mouth daily wit* PRAVASTATIN 20 MG TABLET Take 20 mg by mouth once asad* OXYBUTYNIN CHLORIDE 5 MG TABL* Take 1 tablet by mouth twice * METOPROLOL TARTRATE 100 MG TA* Take 1 tablet by mouth twice * AMLODIPINE 5 MG TABLET Take 1 tablet by mouth once d* HYDROCHLOROTHIAZIDE 25 MG TAB* Take 1 tablet by mouth once d* CODEINE 10 MG-GUAIFENESIN 100* Take 5-10 mL by mouth four ti* CETIRIZINE 10 MG TABLET Take 1 tablet by mouth once d* SILDENAFIL 100 MG TABLET Take 1 tablet by mouth as nee* Problem List As Of Date 12/23/2017 Noted Resolved Essential hypertension, benign [I10] INVALID FOR* Priority: A More... More... 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 More... Headache(784.0) [R51] 03/24/2014 More... Atrial fibrillation (HCC) [I48.91] INVALID FOR*10/02/2015 Priority: A More... [I50.9] INVALID FOR* More... More... More... Abdominal pain, unspecified site [R10.9] INVALID FOR*10/26/2014 More... More... Hepatitis B [B19.10] INVALID FOR* More... More... Rectal bleeding [K62.5] INVALID FOR*08/11/2015 ZAID (obstructive sleep apnea) [G47.33] INVALID FOR* Vertigo [R42] INVALID FOR*11/21/2015 Stroke (HCC) [I63.9] INVALID FOR* Tremor [R25.1] INVALID FOR* Constitutional obesity [E66.8] INVALID FOR* Paroxysmal atrial fibrillation (HCC) [I48.0] INVALID FOR* More... More... Cirrhosis of liver without ascites (HCC) [K74.6*INVALID FOR* More... LGI bleed [K92.2] INVALID FOR* Obesity (BMI 35.0-39.9 without comorbidity) [E6*INVALID FOR* Pulmonary hypertension, secondary (HCC) [XJI451*INVALID FOR* Varicose vein of leg [I83.90] INVALID FOR* More... Prescriptions ordered this encounter Disp Refills Start End ENTERIC CONTRAST (RADIOLOGY PROCEDUR* 1 Ea* 0 12/23/2017 12/23/2017 Class: In Office Route: ORAL Sig: Take 1 Each by mouth one time only for [address] ABD/PEL WO Routine order Administer, As Directed One Time Only, via Oral, Rectal, both Oral and Rectal, Enteric Tube, Stoma or Indwelling Catheter, Enteric Contrast as designated per enteric contrast guidelines Encounter Status:Closed by NOMAN YIP on 12/23/17 PROGRESS Observed: 12/23/2017 Status: COMPLETED Source: [place] 11:48 AM [facility] [place] REPOSITORY O ID: [id number] Author: Noman Templeton) JUDY Allen Service: (none) Author Type: Nurse Specialist Type: Progress Notes Filed: 12/23/2017 1:12 PM Note Text: OUTPATIENT VISIT DATE December 23, 2017 OUTPATIENT VISIT TYPE ESTABLISHED PRIMARY CARE PHYSICIAN: BALDEMAR BRINK MD CHIEF COMPLAINT: Patient presents with: Abdominal Pain: R lower mid History of Present Illness: Armaan Guthrie is a 62 year old male who was last seen 11/2017 in . He has been seen in the past for ACTIVE PROBLEM LIST Essential hypertension, benign Hepatitis B Zaid (Obstructive Sleep Apnea) Stroke (Hcc) Tremor Constitutional Obesity Paroxysmal Atrial Fibrillation (Hcc) Cirrhosis of Liver Without Ascites (Hcc) Lgi Bleed Obesity (Bmi 35.0-39.9 Without Comorbidity) Pulmonary Hypertension, Secondary Varicose Vein of Leg He reports remaining really active most of the time. Does report heavy lifting a few weeks ago due to transmission with one of the person. He reports right lower abdominal or upper pelvis/inguinal area with pain that is increased with bending over squatting down, lifting straining or coughing. nNo symptoms of bowel obstruction, no nausea or vomiting. He is status post right inguinal hernia repair with mesh in 2012 and left inguinal hernia repair with mesh [place] [address] Mohan. ~25 lbs weight gain over last year. Reports recently stopped drinking soda due to weight gain. No recent hospital or ED visits. No new medical problems or medications. Able to obtain medications. No problems with taking medications or note side effects. PAST MEDICAL HISTORY Diagnosis Date - Arrhythmia - Atrial fibrillation (HCC) - Bilateral edema of lower extremity 04/02/2016 - CHF (congestive heart failure) (HCC) - Detached retina 12/26/20142001 he had a surgery done. - Diverticulosis of colon (without mention of hemorrhage) Diverticulosis. 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 - Snoring - SOB (shortness of breath) 04/25/2014 - Social phobia with panic attacks - Stroke (HCC) - Syphilis - TREMOR NEC 07/06/2005 - Unspecified hemorrhoids without mention of complication Hemorrhoids PAST SURGICAL HISTORY Procedure Laterality Date - COLONOSCOP W/ OR W/O BRSH SPEC 10/26/13 Repeat 2023 - COLONOSCOP W/ OR W/O BRSH SPEC 08/11/15 Colonoscopy - COLONOSCOPY 11/27/01 - EGD W/O OR W/BRUSH/WASH 10/21/2014 EGD - HEART SURGERY 2014 cardioversion - HEMORRHOID: RUBBERBAND, SINGLE/MULTIPLE 09/2015 - LAP REPAIR INTIAL INGUINAL HERNIA 07/29/13 right - LAP REPAIR INTIAL INGUINAL HERNIA Left 04/06/2015 - PAST SURGICAL HISTORY OF 09/2001 LEFT EAR DK REPLACE BONE - PAST SURGICAL HISTORY OF 11/2001 REPEAT LEFT EAR DK - PAST SURGICAL HISTORY OF teeth pulled - PAST SURGICAL HISTORY OF 2005 detatched retenia right eye and muscle repair. 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 - REPAIR ING HERNIA,5+Y/O,REDUCIBL 1989 LEFT - VASECTOMY FAMILY HISTORY Problem Relation Age of Onset - Coronary Artery Disease Mother CABG - anemia [OTHER] Mother - Cancer Father LUNG - Emphysema Father - IBS [OTHER] Father - bipolar [OTHER] Sister - Diabetes Daughter - Stroke No Family History - Heart Daughter myocarditis - Encephalocele [OTHER] Daughter Social History Substance Use Topics - Smoking status: Never Smoker - Smokeless tobacco: Never Used - Alcohol use No ALLERGIES: ALLERGIES Allergen Reactions - Ceftin [Cefuroxime] Rash - Lisinopril Cough - Penicillins Hives - Vicodin [Hydrocodon* Rash MEDICATIONS enteric contrast (radiology procedure) Take 1 Each by mouth one time only for [address] ABD/PEL WO Routine order Administer, As Directed One Time Only, via Oral, Rectal, both Oral and Rectal, Enteric Tube, Stoma or Indwelling Catheter, Enteric Contrast as designated per enteric contrast guidelines aspirin, enteric coated (ASPIRIN, ENTERIC COATED) 81 mg EC tablet Take 81 mg by mouth once daily. amiodarone (PACERONE) 200 mg tablet Take by mouth once daily. rivaroxaban (XARELTO) 20 mg tablet Take 20 mg by mouth daily with dinner. pravastatin (PRAVACHOL) 20 mg tablet Take 20 mg by mouth once daily. oxybutynin (DITROPAN) 5 mg tablet Take 1 tablet by mouth twice daily. metoprolol tartrate, short acting, (LOPRESSOR) 100 mg tablet Take 1 tablet by mouth twice daily. amLODIPine (NORVASC) 5 mg tablet Take 1 tablet by mouth once daily. hydroCHLOROthiazide (HYDRODIURIL, ESIDRIX) 25 mg tablet Take 1 tablet by mouth once daily. codeine-guaiFENesin (ROBITUSSIN AC) 10-100 mg/5 mL syrup Take 5-10 mL by mouth four times daily as needed for Cough. May cause drowsiness. cetirizine (ZYRTEC) 10 mg tablet Take 1 tablet by mouth once daily. sildenafil (VIAGRA) 100 mg tablet Take 1 tablet by mouth as needed. REVIEW OF SYSTEMS: GENERAL: Negative for: Weight loss or gain, Fever or Chills, Weakness and Sleep difficulties. Physical Examination: BP 130/84 Pulse 72 Resp 18 Wt 293 lb (132.9kg) Extended Vitals not filed for this encounter. General appearance: Well appearing, alert, in no acute distress, well-hydrated, well nourished. Skin: Skin color, texture, turgor normal, no suspicious rashes or lesions Abdomen: Abdomen soft, some RLQ tenderness on palpation, no appreciable hernia/mass. Bowel sounds normal. No masses, organomegaly Neuro: Gait normal. Sensation grossly intact. Reviewed chart, outside records, tests I personally interviewed, confirmed and edited the above information if obtained by others. TESTING: Glucose (mg/dL) Date Value 06/03/2017 101 Potassium (mmol/L) Date Value 06/03/2017 3.8 Sodium (mmol/L) Date Value 06/03/2017 136 Chloride (mmol/L) Date Value 06/03/2017 100 CO2 (mmol/L) Date Value 06/03/2017 24 Creatinine (mg/dL) Date Value 06/03/2017 0.93 BUN (mg/dL) Date Value 06/03/2017 11 Anion Gap (mmol/L) Date Value 06/03/2017 12 Calcium (mg/dL) Date Value 06/03/2017 9.0 Glucose (mg/dL) Date Value 06/03/2017 101 Potassium (mmol/L) Date Value 06/03/2017 3.8 Sodium (mmol/L) Date Value 06/03/2017 136 Chloride (mmol/L) Date Value 06/03/2017 100 CO2 (mmol/L) Date Value 06/03/2017 24 Creatinine (mg/dL) Date Value 06/03/2017 0.93 BUN (mg/dL) Date Value 06/03/2017 11 Anion Gap (mmol/L) Date Value 06/03/2017 12 Calcium (mg/dL) Date Value 06/03/2017 9.0 Protein, Total (g/dL) Date Value 06/03/2017 7.3 Albumin (g/dL) Date Value 06/03/2017 3.5 Bilirubin, Total (mg/dL) Date Value 06/03/2017 1.5 Alkaline Phosphatase (U/L) Date Value 06/03/2017 132 AST (U/L) Date Value 06/03/2017 47 ALT (U/L) Date Value 06/03/2017 37 Hemoglobin (g/dL) Date Value 07/17/2016 14.1 Hematocrit (%) Date Value 07/17/2016 41.7 WBC (k/uL) Date Value 07/17/2016 9.63 Cholesterol, Total (mg/dL) Date Value 06/03/2017 158 HDL Cholesterol (mg/dL) Date Value 06/03/2017 56 LDL Cholesterol (mg/dL) Date Value 06/03/2017 85 Triglyceride (mg/dL) Date Value 06/03/2017 86 Hemoglobin A1C Date Value Ref Range Status 11/08/2014 5.6 4.0 - 6.0 % Final Comment: [place] [employer] guidelines indicate that patients with HgbA1c in the range 5.7-6.4% are at increased risk for development of diabetes, and intervention by lifestyle modification may be beneficial. HgbA1c greater or equal to 6.5% is considered diagnostic of diabetes. HBA1C, [place] Date Value Ref Range Status 12/04/2010 5.6 4.0 - 6.0 % Final Comment: DANNY AKERS Ejection Fraction - Result: 60 % Date: 06/06/2009 Time: 08:35:00 IMPRESSION: Mr. Guthrie is a 62 year old man With history of bilateral inguinal hernia repair with mesh presents for Right lower quadrant and right inguinal area pain present for a few weeks increased with activity such as lifting straining or coughing. He is status post After my examination and review of data, I make the following recommendations. PLAN AND RECOMMENDATIONS: 1. H/O bilateral inguinal hernia repair - ICD9: V45.89, ICD10: Z98.890, Z87.19 (primary diagnosis) - CT ABD/PEL WO IVCON - ENTERIC CONTRAST (RADIOLOGY PROCEDURE) - CONSULT TO GENERAL SURGERY 2. Right lower quadrant abdominal pain - ICD9: 789.03, ICD10: R10.31 - CT ABD/PEL WO IVCON - ENTERIC CONTRAST (RADIOLOGY PROCEDURE) - CONSULT TO GENERAL SURGERY Concern for inguinal hernia. Discussed when to seek urgent care. Advised to go to ER if develops chest pain, shortness of breath, or severe worsening of symptoms. Discussed risks, benefits, alternatives, and potential side effects of medications. Mr. Guthrie expressed understanding and agreed with the plan. Noman Allen APRN.BEE RAISER LIVER PROFILE Collected: 12/12/2017 Status: F Source: [place] 8:41 AM [facility] [place] TYPE CODE TESTS RESULT OUT OF RANGE REFERENCE UNITS LAB L501.1500 6.4-8.2 g/dL Normal T PROT 6.8 LAB L501.1800 3.2-5.0 g/dL Low ALB 2.9 LAB L501.1950 2.2-4.2 g/dL Normal GLOB 3.9 LAB L501.4100 15-37 U/L High AST 43 LAB L501.4305 45-117 U/L High ALK P 167 LAB L501.4405 16-61 U/L Normal ALT 34 Result Comment: Please note revised ALT reference range effective 2017. LAB L501.4600 0.20-1.00 mg/dL High T 1.90 BILI LAB L501.4700 0.00-0.30 mg/dL High D 0.45 BILI Performed By: #### L500.3400, L500.4100 #### [facility] [address] [place], [place], [id number] LIPID PROFILE Collected: 12/12/2017 Status: F Source: [place] 8:41 AM [facility] [place] TYPE CODE TESTS RESULT OUT OF RANGE REFERENCE UNITS LAB L501.4900 200 mg/dL Normal CHOL 131 Result Comment: <200 mg/dL Desirable 200-240 mg/dL Borderline >240 mg/dL High Risk LAB L501.5000 mg/dL Normal TRIG 79 Result Comment: The drugs N-Acetylcysteine and Metamizole may falsely depress this assay. Serum Triglycerides Reference Interval Normal <150 mg/dL Borderline high 150 - 199 mg/dL High 200 - 499 mg/dL Very High > or = 500 mg/dL LAB L501.6400 mg/dL Normal HDL 57 Result Comment: The drugs N-Acetylcysteine and Metamizole may falsely depress this assay. Reference Range HDL <40 mg/dL Low HDL Cholesterol HDL >or= 60 mg/dL High HDL Cholesterol LAB L501.6500 0-130 mg/dL Normal LDL 58 LAB L501.6600 5-40 mg/dL Normal VLDL 16 Performed By: #### L500.3400, L500.4100 #### [facility] [address] [place], [place], [id number] THYROID STIM HORMONE Collected: 12/12/2017 Status: F Source: [place] (TSH) 8:38 AM [facility] [place] TYPE CODE TESTS RESULT OUT OF RANGE REFERENCE UNITS LAB L501.9520 0.358-3.74 uIU/mL Normal TSH 1.26 Performed By: #### L501.9520, L506.0400 #### [facility] [address] [place], [place], [id number] T4 FREE DIRECT Collected: 12/12/2017 Status: F Source: [place] 8:38 AM [facility] [place] TYPE CODE TESTS RESULT OUT OF RANGE REFERENCE UNITS LAB L506.0400 0.76-1.46 ng/dL Normal T4 FREE 1.40 DIRECT Performed By: #### L501.9520, L506.0400 #### [facility] [address] [place], [address] CARDIOLOGY VISIT Observed: 12/11/2017 Status: F Source: [place] REPORT 1:59 PM [facility] [place] [facility] [address] [place] [address] OFFICE VISIT Date of Service: 12/11/17 MR#: [id number] Acct: [id number] Name: ARMAAN GUTHRIE Rep #: [id number] : 1955 Provider: ALISA Marsh Age/Sex: 62/M [place] [facility] [place] Signed HPI HPI Details: ARMAAN GUTHRIE, is a 62 M who presents to the office today for a cardiovascular outpatient follow-up. Patient has history of paroxysmal atrial fibrillation status post cardioversion in August 2017, non-CAD related cardiomyopathy, minimal to mild CAD, hypertension, DVT, renal insufficiency, and obstructive sleep apnea. Pt. denies chest, arm, jaw, or neck discomfort. His exercise tolerance is stable though minimal. He is currently in PT. Pt. denies symptoms of palpitations, lightheadedness, dizziness, near syncope, or syncopal episodes. Pt. denies worsening edema or claudication issues. Pt. denies orthopnea, fever, chills, blood in urine, blood in stool, myalgia, or unexplainable fatigue. He still notices some SOB with extraneous work. He is hoping to use his CPAP more often and lose weight. Patient is status post right knee replacement. He states the surgery went well and denies any cardiac concerns during or after his surgery. Intake Vital Signs12/11/17 Height 6 ft 12/11/17 Weight: 294 lb 12/11/17 Body Mass Index (BMI) 39.9 12/11/17 Blood Pressure 132/80 12/11/17 Blood Pressure Location Lt brachial Intake Visit Reasons: 3 M FU Bank Officer Required: No Accompanied by: None Is patient in pain?: No Allergies cefuroxime axetil [From Ceftin] Allergy (Verified 12/11/17 08:34) Rash hydrocodone bitartrate [From Vicodin] Allergy (Verified 12/11/17 08:34) Rash Penicillins Allergy (Verified 12/11/17 08:34) Hives carvedilol [From Coreg] Adverse Reaction (Verified 12/11/17 08:34) Other lisinopril Adverse Reaction (Verified 12/11/17 08:34) Other Medications aspirin 81 mg tablet,delayed release 81 mg PO QDAY #30 tab 10/07/17 [Rx Confirmed 12/11/17] Oxycodone HCl/Acetaminophen [Percocet 5/325] 1 tab PO Q6H PRN PRN #20 tab 11/11/17 [Rx Confirmed 12/11/17] Acetaminophen [Tylenol Extra Strength] 500 - 1,000 mg PO Q6H PRN PRN 11/19/17 [History Confirmed 12/11/17] Amiodarone HCl 200 mg PO DAILY 11/19/17 [History Confirmed 12/11/17] Amlodipine [Norvasc] 5 mg PO QHS 11/19/17 [History Confirmed 12/11/17] Metoprolol Tartrate [Lopressor (beta abram)] 100 mg PO BID 11/19/17 [History Confirmed 12/11/17] Pravastatin Sodium [Pravachol] 20 mg PO QHS 11/19/17 [History Confirmed 12/11/17] Rivaroxaban [Xarelto] 20 mg PO QDAY 11/19/17 [History Confirmed 12/11/17] Ejection fraction %: 55 to 59 PFSH Medical History HTN (hypertension) (Chronic) History of cardioversion (Resolved 08/2017) History of echocardiogram (Resolved 08/2017) History of echocardiogram (Acute 01/2013) Erectile dysfunction (Chronic) Obesity (BMI 30-39.9) (Chronic) ZAID (obstructive sleep apnea) (Chronic) DVT (deep venous thrombosis) (Chronic) Renal insufficiency (Acute) Surgical History H/O cardiac catheterization (Resolved 06/2009) Family History Mother , CABG @ 50yrs CAD (coronary artery disease) Social History Smoking Status: Never smoker alcohol intake: never substance use type: does not use caffeine: No what type of physical activity do you participate in: other details: PT frequency: 3-4 times per week duration: 15-30 minutes/day seatbelt use: always do you feel safe at home: Yes ROS Const Const: Negative for fatigue, weakness, body ache, fever(s) or chills ENT ENT: Negative for dizziness Cardio Chest Pain: No Palpitations: No Edema: Right (post knee surgery) Muscle aches with walking: None Resp Respiratory: Positive for SOB with activity and paroxysmal nocturnal dyspnea; negative for SOB at rest or SOB orthopnea\SOB lying down GI GI: Negative nausea, black,tarry stools, bright, red blood in stools or vomiting blood/hematemesis : Negative for hematuria or frequent nighttime urination/ nocturia Musc Musc: Negative for muscle aches/ myalgia Neuro Neuro: Negative for weakness, dizziness, lightheadedness, near syncope, syncope or orthostatic symptoms Endo Endo: Negative for fatigue Cardiology Exam Const Appearance: cooperative, healthy appearing, comfortable and no acute distress Nutritional Appearance: obese Orientation: alert, awake and oriented x3 Head Head: normal to inspection Mouth: oral mucosae normal Neck Neck: no JVD and normal visual inspection Carotids: normal carotid upstroke Chest Chest inspection: normal inspection of the chest and normal respiratory effort Auscultation: Bilateral: Clear to Auscultation Cardio Rate: regular rate Rhythm: regular rhythm Heart sounds: S1 normal and S2 normal; negative rub or gallop GI GI: normal to inspection and obese Neuro General: alert, awake, oriented x3 and CN's II-XI intact bilaterally Skin Skin: no rashes or lesions noted Extremities Pulses: Normal: Right Posterior Tibial Pulse, Left Posterior Tibial Pulse, Right Radial Pulse, Left Radial Pulse Lower Extremity Edema: +2: Bilateral Psych Psychological: normal affect Supplemental Info Echocardiogram from August 2017 showed estimated ejection fraction 65%, moderately enlarged left atrium, mild to moderate mitral valve insufficiency, mild tricuspid valve insufficiency, trivial aortic valve insufficiency, trivial pulmonic valve insufficiency, and an RVSP of 30 mmHg. Stress test from August 2017 was negative for stress-induced myocardial ischemia and showed a preserved ejection fraction. Patient was in persistent atrial fibrillation. SABINE from August 2017 showed estimated ejection fraction 55%, moderately enlarged left atrium, no spontaneous contrast in left atrium, no thrombus detected in left atrial appendage, mildly enlarged right atrium, moderate mitral valve insufficiency, mild tricuspid valve insufficiency, mild focal aortic valve calcification, and negative bubble contrast study for right to left intra-atrial shunt. Venous duplex ultrasound from November 2017 showed resolution of the chronic superficial thrombophlebitis in the right greater saphenous vein and negative for DVT. Heart catheterization from June 2009 showed left main that was free of significant stenosis, LAD with mild plaque present and no significant lesions, LCx with 30% stenosis and no high-grade lesions, RCA with scattered plaque but no significant stenosis, and renal arteriogram with widely patent renal arteries and no significant plaque or stenosis. Assessment AND Plan 1. Coronary artery disease involving [place] coronary artery of [place] heart without angina pectoris I25.10 ROBERT Talavera Patient's most recent stress test from August 2017 was negative for stress induced myocardial ischemia and showed a preserved ejection fraction. Patient's heart catheterization from June 2009 showed mild to moderate disease. Patient denies any chest pain, arm pain, jaw pain, neck pain, or fatigue suggestive of angina at this time. We will continue to monitor this. We will not make any medication regimen changes and will continue risk factor modification. 2. Paroxysmal atrial fibrillation I48.0 DCCV in August 2017; ROBERT Talavera Patient is status post cardioversion in August 2017. Patient's echocardiogram in August 2017 showed a preserved ejection fraction of 65% and moderately enlarged left atrium. His follow-up EKGs have showed sinus rhythm. He appears to be maintaining sinus rhythm today. We will continue current medications which include antiarrhythmic, beta-abram, and factor Xa inhibitor. We will continue to monitor this over time. 3. Deep vein thrombosis (DVT) of right lower extremity, unspecified chronicity, unspecified vein I82.401 ROBERT Talavera Patient's most recent venous duplex ultrasound from November 2017 was negative for DVT and showed resolution of chronic superficial thrombophlebitis in the right greater saphenous vein. Patient will continue with factor Xa inhibitor for paroxysmal atrial fibrillation. We will continue to monitor this. 4. Benign essential hypertension I10 ROBERT Talavera Patient's heart catheterization from 2008 showed widely patent renal arteries and no significant plaque or renal stenosis. Patient's blood pressure is well-controlled today in the office. We will continue to monitor this. We will not make any medication regimen changes. 5. Non-ischemic cardiomyopathy I42.8 ROBERT Talavera Patient's most recent echocardiogram from August 2017 showed an estimated ejection fraction of 65%. Patient denies any worsening shortness of breath or worsening lower extremity pedal edema. Patient will continue beta-abram. We will continue to monitor this through history, exam, and repeat echocardiogram as needed. 6. Valvular heart disease I38 Plan - ROBERT Hendrix Patient's echocardiogram from August 2017 showed mild to moderate mitral valve insufficiency and mild tricuspid valve insufficiency. We will not make any medication regimen changes. We will continue to monitor this through history, exam, and repeat echocardiogram as deemed necessary. 7. Long-term use of high-risk medication Z79.899 Plan - ROBERT Hendrix Patient has a pulmonary function test and liver function tests scheduled. Baseline thyroid function will also be obtained d/t chronic amiodarone therapy. We will await the results of these tests for further recommendation. Orders Orders: 8. Obesity (BMI 30-39.9) E66.9 Plan - ROBERT Hendrix Patient did acknowledge his increase and weight and need for weight loss. This is reaffirmed with the patient. We will continue to promote and support healthy weight loss. 9. ZAID (obstructive sleep apnea) G47.33 Plan - ROBERT Hendrix Patient does acknowledge minimal usage of his CPAP machine. He has been evaluated by pulmonology team for this. It was stressed the importance regarding CPAP usage and cardiovascular health. He acknowledges understanding of this and states desire to use his CPAP machine regularly. He will continue to follow-up with pulmonology team for this. Plan Detail Other Medications Discontinued: Additional Comments - ROBERT Hendrix Discussed the above patient with Dr. Perez in Dr. Castillo's absence, he agrees with the plan of care. Thank you for allowing us to participate in the patients plan of care, if you have any questions please do not hesitate to call. This note was generated using a voice recognition system and there may be incorrect words, spelling or punctuation that were not noted when reviewing the office note prior to saving. Follow Up 10 Months (PFM) Coding Level of Care Code Off vis,est,level 3 Diagnoses Coronary artery disease involving [place] coronary artery of [place] heart without angina pectoris I25.10 Coronary Disease-Associated Artery/Lesion type: [place] artery [place] vs. transplanted heart: [place] heart Associated angina: without angina Paroxysmal atrial fibrillation I48.0 Deep vein thrombosis (DVT) of right lower extremity, unspecified chronicity, unspecified vein I82.401 DVT location: lower extremity Affected thrombotic vein of extremity: unspecified vein of extremity Chronicity: unspecified Laterality: right Benign essential hypertension I10 Non-ischemic cardiomyopathy I42.8 Valvular heart disease I38 Long-term use of high-risk medication Z79.899 Obesity (BMI 30-39.9) E66.9 ZAID (obstructive sleep apnea) G47.33 Coding Level of Care Code Off vis,est,level 3 Diagnoses Coronary artery disease involving [place] coronary artery of [place] heart without angina pectoris I25.10 Coronary Disease-Associated Artery/Lesion type: [place] artery [place] vs. transplanted heart: [place] heart Associated angina: without angina Paroxysmal atrial fibrillation I48.0 Deep vein thrombosis (DVT) of right lower extremity, unspecified chronicity, unspecified vein I82.401 DVT location: lower extremity Affected thrombotic vein of extremity: unspecified vein of extremity Chronicity: unspecified Laterality: right Benign essential hypertension I10 Non-ischemic cardiomyopathy I42.8 Valvular heart disease I38 Long-term use of high-risk medication Z79.899 Obesity (BMI 30-39.9) E66.9 ZAID (obstructive sleep apnea) G47.33 12/11/17 0954 <Electronically signed by Farhat JONES> Date Farhat GUIDOC 12/11/17 1359<Electronically signed by Morro Perez MD> Cosigner Signature: Date (if applicable) Morro Perez MD CC: Baldemar Brink MD VENOUS DUPLEX LOWER Observed: 11/30/2017 Status: F Source: [place] 8:33 AM [facility] [place] [facility] Cardiovascular Services [address] [place] [address] Venous Duplex US, Unilateral 11/28/17 1425 MR#: [id number] Acct: [id number] Name: ARMAAN GUTHRIE Rep #: [id number] : 1955 62 From: Frank Valle MD Attending Dr: Armaan He MD Status: REG CLI Ordering Dr: Armaan He MD Date: 11/28/17 Location: CVS Sex: M C Admitted: Reason For Study: RLE pain RIGHT LEFT GSV is normal. CFV is compressible, spontaneous, phasic, CFV is compressible, spontaneous, phasic, competent, and demonstrates normal competent and demonstrates normal augmentation. augmentation. FV is compressible, spontaneous, phasic, competent and demonstrates normal augmentation. POP V is compressible, spontaneous, phasic, competent and demonstrates normal augmentation. T/P Trunk is compressible. PTV is compressible. Unable to visualize PER V due to edema and vessel depth. Prev exam 10/31/17 partial SVT in GSV; Appears resolved. Procedure Exam performed in department. The study was technically difficult. The exam was diagnostic. A preliminary report was called and/or faxed to Dr. He @ [phone] @ 3:00 pm. Interpretation Summary Deep veins of the right lower extremity are patent and compressible segmentally. There is no evidence of right lower extremity deep vein thrombosis. Valvular competence appears intact within the proximal deep venous system on the right . The right greater saphenous vein appears patent and compressible segmentally. The right peroneal vein was not visualized due to edema. 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 Ordering Physician: Armaan He Referring Physician: Baldemar Brink Performed By: Ariana Rollins, EMMA, RVT 11/30/17 0832 Date Frank Valle MD CC: Baldemar Brink MD; Armaan He MD Date Dictated: 11/28/17 1425 Date Transcribed: 11/30/17831 Script Writer: Signed OPERATIVE REPORT Observed: 11/26/2017 Status: F Source: [place] 8:05 AM [facility] [place] [facility] Medical Records Department [address] [place] [address] Operative Report 11/26/17 0759 MR#: [id number] Acct: [id number] Name: ARMAAN GUTHRIE Rep #: [id number] : 1955 62 From: Armaan He MD PCP: Baldemar Brink MD Status: REG [facility] Location: [place] [address] Report of Operation Date of Procedure: 11/26/17 Pre-Operative Diagnosis: Right knee medial meniscus tear. Right knee possible lateral meniscus tear. Right knee chondromalacia Post-Operative Diagnosis: Right knee medial meniscus tear. Right knee chondromalac Surgery/Procedure Performed:: 1. Right knee arthroscopic partial medial meniscectomy. 2. Right knee arthroscopic medial compartment chondroplasty Description of Surgical Findings:: See operative report billposting supervisor: None Type of Anesthesia:: General Anesthesiologist: Berto Hendrickson Special Medications: 900 mg clindamycin Estimated Blood Loss (mL): 5 Fluids Replaced: 1000 ml crystalloid Description of Procedure: 62-year-old male who presented to my office with mechanical knee pain acute in onset. MRI revealed anterior horn and posterior horn medial meniscus tears with possible posterior horn lateral meniscus tear with chondromalacia. Risks and benefits of arthroscopic treatment were discussed the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 ribs. CHEST: Stable scarring at the lung bases. Electronically Signed: Duke Duran MD at 13:30 EST Tel [phone], Service support , CC: Baldemar Brink MD; Aleida Decker DO Script Writer: Signed VENOUS DUPLEX LOWER Observed: 11/04/2017 Status: F Source: [place] EXTREMITY 2:10 PM [facility] [place] [facility] Cardiovascular Services [address] [place] [address] Venous Duplex US, Unilateral 10/31/17 1258 MR#: [id number] Acct: [id number] Name: ARMAAN GUTHRIE Rep #: [id number] : 1955 62 From: Frank Valle MD Attending Dr: Zach Castillo MD Status: REG CLI Ordering Dr: Zach Castillo MD Date: 10/31/17 Location: [facility] Sex: M C Admitted: Reason For Study: DVT (09/03/2017) RIGHT LEFT CFV is compressible, spontaneous, phasic, CFV is compressible, spontaneous, phasic, competent and demonstrates normal competent, and demonstrates normal augmentation. augmentation. FV is compressible, spontaneous, phasic, competent and demonstrates normal augmentation. POP V is compressible, spontaneous, phasic, competent and demonstrates normal augmentation. PTV is compressible. RT PerV is compressible. T/P Trunk is compressible. GSV is compressible at SFJ. GSV is partially compressible from proximal thigh to ankle. Interpretation Summary Deep veins of the right lower extremity are patent and compressible segmentally. There is no evidence of right lower extremity deep vein thrombosis. Valvular competence appears intact within the proximal deep venous system on the right . The right great saphenous vein near the sapheno- femoral junction is patent and compressible. Chronic venous changes are noted in the right great saphenous vein, from the right proximal thigh to the ankle. Ordering Physician: Zach Castillo Referring Physician: Baldemar Brink Performed By: Ariana Rollins, RDCS, RVT 11/04/17 1409 Date Frank Valle MD CC: Baldemar Brink MD; Zach Castillo MD Date Dictated: 10/31/17 1258 Date Transcribed: 11/04/17 1409 Script Writer: Signed PROGRESS Observed: 11/04/2017 Status: COMPLETED Source: [place] 11:19 AM [facility] REPOSITORY [facility] ID: [id number] Author: Cindy Richardson (Pa) Service: (none) Author Type: Physician Fretted String Instrument Repairer Type: Progress Notes Filed: 11/04/2017 4:01 PM Note Text: [facility] PATIENT INFO: Armaan Guthrie 62 year old PCP: BALDEMAR BRINK MD Referred by: BALDEMAR BRINK MD CHIEF COMPLAINT: Urinary Frequency HPI: This is a 62 year old male, who has had urinary frequency, which started in 2016, and involves the Urine Patient states this mild in severity and mild in quality, and is happening constantly Aggravating factors: Yes , drinking a lot of pop, not much water , Alleviating Factors: None . And the patient denies having Fever, Chills, Rigors, Nausea and Vomiting VOIDING SYMPTOMS: NTF: 5-6 Times Large Amounts DTF: Q 3 HOURS FOS: Average Hesitancy: No Straining: No Intermittency: No Urgency: No Frequency: Yes Dysuria: No Gross Hematuria: No U/A Dipstick Positive Blood - Only: No Incomplete Voiding: No Double Voiding: No Post Void Dribbling: No Incontinence: No SEXUAL SYMPTOMS: ED - on Viagra ALLERGY: ALLERGIES Allergen Reactions - Ceftin [Cefuroxime] Rash - Lisinopril Cough - Penicillins Hives - Vicodin [Hydrocodon* Rash MEDICATIONS: Current Outpatient Prescriptions: aspirin, enteric coated (ASPIRIN, ENTERIC COATED) 81 mg EC tablet Take 81 mg by mouth once daily. Disp: Rfl: amiodarone (PACERONE) 200 mg tablet Take by mouth once daily. Disp: Rfl: rivaroxaban (XARELTO) 20 mg tablet Take 20 mg by mouth daily with dinner. Disp: Rfl: pravastatin (PRAVACHOL) 20 mg tablet Take 20 mg by mouth once daily. Disp: Rfl: metoprolol tartrate, short acting, (LOPRESSOR) 100 mg tablet Take 1 tablet by mouth twice daily. Disp: 180 tablet Rfl: 0 amLODIPine (NORVASC) 5 mg tablet Take 1 tablet by mouth once daily. Disp: 90 tablet Rfl: 0 codeine-guaiFENesin (ROBITUSSIN AC) 10-100 mg/5 mL syrup Take 5-10 mL by mouth four times daily as needed for Cough. May cause drowsiness. Disp: 120 mL Rfl: 0 cetirizine (ZYRTEC) 10 mg tablet Take 1 tablet by mouth once daily. Disp: 30 tablet Rfl: 5 sildenafil (VIAGRA) 100 mg tablet Take 1 tablet by mouth as needed. Disp: 2 tablet Rfl: 11 hydroCHLOROthiazide (HYDRODIURIL, ESIDRIX) 25 mg tablet Take 1 tablet by mouth once daily. Disp: 90 tablet Rfl: 3 No current facility-administered medications for this visit. Past Medical History PAST MEDICAL HISTORY Diagnosis Date - Arrhythmia - Atrial fibrillation (HCC) - Bilateral edema of lower extremity 04/02/2016 - CHF (congestive heart failure) (HCC) - Detached retina 12/26/2014 2002 he had a surgery done. - Diverticulosis of colon (without mention of hemorrhage) Diverticulosis. 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 - Snoring - SOB (shortness of breath) 04/25/2014 - Social phobia with panic attacks - Stroke (HCC) - Syphilis - TREMOR NEC 07/06/2005 - Unspecified hemorrhoids without mention of complication Hemorrhoids Past Surgical History PAST SURGICAL HISTORY Procedure Laterality Date - COLONOSCOP W/ OR W/O BRSH SPEC 10/26/13 Repeat 2023 - COLONOSCOP W/ OR W/O BRSH SPEC 08/11/15 Colonoscopy - COLONOSCOPY 11/27/01 - EGD W/O OR W/BRUSH/WASH 10/21/2014 EGD - HEART SURGERY HX 2014 cardioversion - HEMORRHOID: RUBBERBAND, SINGLE/MULTIPLE 09/2015 - LAP REPAIR INTIAL INGUINAL HERNIA 07/29/13 right - LAP REPAIR INTIAL INGUINAL HERNIA Left 04/06/2015 - PAST SURGICAL HISTORY OF 09/2001 LEFT EAR DK REPLACE BONE - PAST SURGICAL HISTORY OF 11/2001 REPEAT LEFT EAR DK - PAST SURGICAL HISTORY OF teeth pulled - PAST SURGICAL HISTORY OF 2005 detatched retenia right eye and muscle repair. 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 No acute distress HEENT: Negative for sore throat, difficulty swallowing. Negative for frequent or significant headaches, changes in vision or hearing. Cardiovascular: No history of cardiovascular symtoms or problems. No history of angina, CHF, SD, cardiac surgery of stents. Respiratory: Negative for current cough, dyspnea. No hx of pneumonia in the past six weeks Gastrointestinal: No history of GERD, PUD, abd pain, difficulty swallowing, GI bleed. Renal: Negative for renal failure Musculoskeletal: Negative for joint pain or swelling, back pain or muscle pain. Skin: Negative for lesions, rash and itching. Psychological: No history of psychiatric symptoms or problems. Neurologic: No history of TIA's, stroke, BEE RAISER tumor, impaired sensorium, hemiplegia, paraplegia or quadriplegia. No neurological symptoms or problems. Hematology/Oncology: No history of bleeding or clotting disorder. Pt is not taking anti-coagulation or platelet medications. No history of hematological symptoms or problems. Endocrine: No history of endocrinological symtoms or problems No history of DM; has not taken steroids w/in past 30 days. Negative for excessive sweating, thirst or hunger PHYSICAL EXAM: General Appearance/ Constitutional: Well developed, well nourished, and in no apparent distress Head and Neck Not Examined Eyes: Not Examined Respiratory: Clear to auscultation AND percussion Cardiovascular: Normal, Regular rate and rhythm and No murmurs GI: Non-tender, No masses, hepatosplenomegaly and No lymphadenopathy Extremities: Not Examined Back: Normal back and mobility Neurological: Normal cognition and motor skills. Gait normal. No weakness or sensory deficit. Skin: Color, texture, turgor normal. Results for orders placed or performed in visit on 11/04/17 UA DIP, URINE (POC) Result Value Ref Range GLUCOSE UA (POCT) Negative Neg mg/dL BILIRUBIN UA (POCT) Small (A) Neg KETONE UA (POCT) Trace (A) Neg mg/dL SPECIFIC GRAVITY UA (POCT) 1.025 1.005 - 1.030 HEMOGLOBIN/BLOOD UA (POCT) Negative Neg PH UA (POCT) 5.5 4.5 - 8 PROTEIN UA (POCT) Negative Neg mg/dL UROBILINOGEN UA (POCT) 1.0 Normal(<1.1) E.U./dL NITRITE UA (POCT) Negative Neg LEUKOCYTES UA (POCT) Negative Neg COLOR UA (POCT) Juli CLARITY UA (POCT) Clear UROLOGICAL DATA: Post Void Residual, Ultrasound: 30 ml ml Risk of complication and/or Morbidity or Mortality: LOW DISEASE SPECIFICITY: Diagnosis: Urinary frequency Acuity: Chronic Severity: Mild Anatomic Site: N/A Underlying Condition/Causal Agent: Primary Associated Conditions/Manifestations: N/A IMPRESSION / PLAN: > History of Urinary Frequency > PVR today 30 ml > Reduce Pop intake And increase water intake > Trial of ditropan 5 mg at bedtime > 3 mo follow up for new medication discussion I spent approximately 30 minutes in this visit, with more than 50% of the time devoted to patient discussion, counseling, review of records and/or coordination of care. ROSAS Hollis, MT, PAVanessa GROSS Observed: 11/04/2017 Status: COMPLETED Source: [place] 11:00 AM [facility] REPOSITORY Office Visit (UROLWS) ARMAAN GUTHRIE ([id number]) 1955 M [facility] Date Time Provider Department 11/04/17 11:00 AM CINDY RICHARDSON) UROLWS During your visit today, we recorded the following information about you: Blood pressure Weight Height 120/80 129 kg 1.829 m ROBERTO Lowe 11/04/2017 4:01 PM Signed [facility] PATIENT INFO: Armaan Guthrie 62 year old PCP: BALDEMAR BRINK MD Referred by: BALDEMAR BRINK MD CHIEF COMPLAINT: Urinary Frequency HPI: This is a 62 year old male, who has had urinary frequency, which started in 2016, and involves the Urine Patient states this mild in severity and mild in quality, and is happening constantly Aggravating factors: Yes , drinking a lot of pop, not much water , Alleviating Factors: None . And the patient denies having Fever, Chills, Rigors, Nausea and Vomiting VOIDING SYMPTOMS: NTF: 5-6 Times Large Amounts DTF: Q 3 HOURS FOS: Average Hesitancy: No Straining: No Intermittency: No Urgency: No Frequency: Yes Dysuria: No Gross Hematuria: No U/A Dipstick Positive Blood - Only: No Incomplete Voiding: No Double Voiding: No Post Void Dribbling: No Incontinence: No SEXUAL SYMPTOMS: ED - on Viagra ALLERGY: ALLERGIES Allergen Reactions - Ceftin [Cefuroxime] Rash - Lisinopril Cough - Penicillins Hives - Vicodin [Hydrocodon* Rash MEDICATIONS: Current Outpatient Prescriptions: aspirin, enteric coated (ASPIRIN, ENTERIC COATED) 81 mg EC tablet Take 81 mg by mouth once daily. Disp: Rfl: amiodarone (PACERONE) 200 mg tablet Take by mouth once daily. Disp: Rfl: rivaroxaban (XARELTO) 20 mg tablet Take 20 mg by mouth daily with dinner. Disp: Rfl: pravastatin (PRAVACHOL) 20 mg tablet Take 20 mg by mouth once daily. Disp: Rfl: metoprolol tartrate, short acting, (LOPRESSOR) 100 mg tablet Take 1 tablet by mouth twice daily. Disp: 180 tablet Rfl: 0 amLODIPine (NORVASC) 5 mg tablet Take 1 tablet by mouth once daily. Disp: 90 tablet Rfl: 0 codeine-guaiFENesin (ROBITUSSIN AC) 10-100 mg/5 mL syrup Take 5-10 mL by mouth four times daily as needed for Cough. May cause drowsiness. Disp: 120 mL Rfl: 0 cetirizine (ZYRTEC) 10 mg tablet Take 1 tablet by mouth once daily. Disp: 30 tablet Rfl: 5 sildenafil (VIAGRA) 100 mg tablet Take 1 tablet by mouth as needed. Disp: 2 tablet Rfl: 11 hydroCHLOROthiazide (HYDRODIURIL, ESIDRIX) 25 mg tablet Take 1 tablet by mouth once daily. Disp: 90 tablet Rfl: 3 No current facility-administered medications for this visit. Past Medical History PAST MEDICAL HISTORY Diagnosis Date - Arrhythmia - Atrial fibrillation (HCC) - Bilateral edema of lower extremity 04/02/2016 - CHF (congestive heart failure) (HCC) - Detached retina 12/26/2014 2002 he had a surgery done. - Diverticulosis of colon (without mention of hemorrhage) Diverticulosis. 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 - Snoring - SOB (shortness of breath) 04/25/2014 - Social phobia with panic attacks - Stroke (HCC) - Syphilis - TREMOR NEC 07/06/2005 - Unspecified hemorrhoids without mention of complication Hemorrhoids Past Surgical History PAST SURGICAL HISTORY Procedure Laterality Date - COLONOSCOP W/ OR W/O BRSH SPEC 10/26/13 Repeat 2023 - COLONOSCOP W/ OR W/O BRSH SPEC 08/11/15 Colonoscopy - COLONOSCOPY 11/27/01 - EGD W/O OR W/BRUSH/WASH 10/21/2014 EGD - HEART SURGERY 2014 cardioversion - HEMORRHOID: RUBBERBAND, SINGLE/MULTIPLE 09/2015 - LAP REPAIR INTIAL INGUINAL HERNIA 07/29/13 right - LAP REPAIR INTIAL INGUINAL HERNIA Left 04/06/2015 - PAST SURGICAL HISTORY OF 09/2001 LEFT EAR DK REPLACE BONE - PAST SURGICAL HISTORY OF 11/2001 REPEAT LEFT EAR DK - PAST SURGICAL HISTORY OF teeth pulled - PAST SURGICAL HISTORY OF 2005 detatched retenia right eye and muscle repair. 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 No acute distress HEENT: Negative for sore throat, difficulty swallowing. Negative for frequent or significant headaches, changes in vision or hearing. Cardiovascular: No history of cardiovascular symtoms or problems. No history of angina, CHF, SD, cardiac surgery of stents. Respiratory: Negative for current cough, dyspnea. No hx of pneumonia in the past six weeks Gastrointestinal: No history of GERD, PUD, abd pain, difficulty swallowing, GI bleed. Renal: Negative for renal failure Musculoskeletal: Negative for joint pain or swelling, back pain or muscle pain. Skin: Negative for lesions, rash and itching. Psychological: No history of psychiatric symptoms or problems. Neurologic: No history of TIA's, stroke, BEE RAISER tumor, impaired sensorium, hemiplegia, paraplegia or quadriplegia. No neurological symptoms or problems. Hematology/Oncology: No history of bleeding or clotting disorder. Pt is not taking anti-coagulation or platelet medications. No history of hematological symptoms or problems. Endocrine: No history of endocrinological symtoms or problems No history of DM; has not taken steroids w/in past 30 days. Negative for excessive sweating, thirst or hunger PHYSICAL EXAM: General Appearance/ Constitutional: Well developed, well nourished, and in no apparent distress Head and Neck Not Examined Eyes: Not Examined Respiratory: Clear to auscultation ANDamp; percussion Cardiovascular: Normal, Regular rate and rhythm and No murmurs GI: Non-tender, No masses, hepatosplenomegaly and No lymphadenopathy Extremities: Not Examined Back: Normal back and mobility Neurological: Normal cognition and motor skills. Gait normal. No weakness or sensory deficit. Skin: Color, texture, turgor normal. Results for orders placed or performed in visit on 11/04/17 UA DIP, URINE (POC) Result Value Ref Range GLUCOSE UA (POCT) Negative Neg mg/dL BILIRUBIN UA (POCT) Small (A) Neg KETONE UA (POCT) Trace (A) Neg mg/dL SPECIFIC GRAVITY UA (POCT) 1.025 1.005 - 1.030 HEMOGLOBIN/BLOOD UA (POCT) Negative Neg PH UA (POCT) 5.5 4.5 - 8 PROTEIN UA (POCT) Negative Neg mg/dL UROBILINOGEN UA (POCT) 1.0 Normal(ANDlt;1.1) E.U./dL NITRITE UA (POCT) Negative Neg LEUKOCYTES UA (POCT) Negative Neg COLOR UA (POCT) Juli CLARITY UA (POCT) Clear UROLOGICAL DATA: Post Void Residual, Ultrasound: 30 ml ml Risk of complication and/or Morbidity or Mortality: LOW DISEASE SPECIFICITY: Diagnosis: Urinary frequency Acuity: Chronic Severity: Mild Anatomic Site: N/A Underlying Condition/Causal Agent: Primary Associated Conditions/Manifestations: N/A IMPRESSION / PLAN: ANDgt; History of Urinary Frequency ANDgt; PVR today 30 ml ANDgt; Reduce Pop intake And increase water intake ANDgt; Trial of ditropan 5 mg at bedtime ANDgt; 3 mo follow up for new medication discussion I spent approximately 30 minutes in this visit, with more than 50% of the time devoted to patient discussion, counseling, review of records and/or coordination of care. ROSAS Hollis, MT, PA-C Referring Provider: SELF [[id number]] Allergies As of Date: 11/04/2017 Noted Allergy Reaction CEFTIN (CEFUROXIME) 07/01/2005 2 - Rash LISINOPRIL 11/02/2013 3 - Cough PENICILLINS 07/01/2005 4 - Hives VICODIN (HYDROCODONE-ACETAMINOPHE*07/01/2005 2 - Rash Date Reviewed: 11/04/2017 Reviewed by: Gisela Guerrero - Fully Assessed Reason for Visit: New Patient [172] Urinary Urgency [2827] Primary Visit Diagnosis:Urinary frequency [R35.0] Order(s):UA DIP, URINE (POC) [5361500] Order #: [id number]. #:[id number] oxybutynin (DITROPAN) 5 mg tabletTake 1 tablet by mouth twice daily.Disp: 60 tabletRfl: 3 Prescriptions as of 11/04/2017 Sig: ASPIRIN 81 MG TABLET,DELAYED * Take 81 mg by mouth once asad* AMIODARONE 200 MG TABLET Take by mouth once daily. RIVAROXABAN 20 MG TABLET Take 20 mg by mouth daily wit* PRAVASTATIN 20 MG TABLET Take 20 mg by mouth once asad* METOPROLOL TARTRATE 100 MG TA* Take 1 tablet by mouth twice * AMLODIPINE 5 MG TABLET Take 1 tablet by mouth once d* CODEINE 10 MG-GUAIFENESIN 100* Take 5-10 mL by mouth four ti* CETIRIZINE 10 MG TABLET Take 1 tablet by mouth once d* SILDENAFIL 100 MG TABLET Take 1 tablet by mouth as nee* OXYBUTYNIN CHLORIDE 5 MG TABL* Take 1 tablet by mouth twice * HYDROCHLOROTHIAZIDE 25 MG TAB* Take 1 tablet by mouth once d* Medication notes this encounter HYDROCHLOROTHIAZIDE 25 MG TABLET >> Gisela Guerrero MA 11/04/2017 11:01 AM >> GISELA GUERRERO MA [place] Nov 04, 2017 11:01 AM Not taking Problem List As Of Date 11/04/2017 Noted Resolved Essential hypertension, benign [I10] INVALID FOR* Priority: A More... More... 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 More... Headache(784.0) [R51] 03/24/2014 More... Atrial fibrillation (HCC) [I48.91] INVALID FOR*10/02/2015 Priority: A More... [I50.9] INVALID FOR* More... More... More... Abdominal pain, unspecified site [R10.9] INVALID FOR*10/26/2014 More... More... Hepatitis B [B19.10] INVALID FOR* More... More... Rectal bleeding [K62.5] INVALID FOR*08/11/2015 ZAID (obstructive sleep apnea) [G47.33] INVALID FOR* Vertigo [R42] INVALID FOR*11/21/2015 Stroke (HCC) [I63.9] INVALID FOR* Tremor [R25.1] INVALID FOR* Constitutional obesity [E66.8] INVALID FOR* Paroxysmal atrial fibrillation (HCC) [I48.0] INVALID FOR* More... More... Cirrhosis of liver without ascites (HCC) [K74.6*INVALID FOR* More... LGI bleed [K92.2] INVALID FOR* Obesity (BMI 35.0-39.9 without comorbidity) [E6*INVALID FOR* Pulmonary hypertension, secondary (HCC) [MGK794*INVALID FOR* Varicose vein of leg [I83.90] INVALID FOR* More... Prescriptions ordered this encounter Disp Refills Start End OXYBUTYNIN CHLORIDE 5 MG TABLET 60 t* 3 11/04/2017 Route: ORAL Sig: Take 1 tablet by mouth twice daily. Disposition: Return in about 3 months (around 02/02/2018). Follow-up and Disposition History Recorded Encounter Status:Closed by CINDY RICHARDSON PA-C on 11/04/17 ALLERGIES ALLERGIES DATE TYPE / CODE NAME / CODE REACTION SEVERITY SOURCE 10/13/2018 Drug hydrocodone Rash Unknown [place] Allergy/416 bitartrate/F246906 [place] [address]([place] [address]([facility] ED CT) Repository 10/13/2018 Drug cefuroxime Rash Unknown [place] Allergy/416 axetil/[id number]( [place] [address] ED CT) Repository 10/13/2018 Drug Penicillins/S41619 Hives Unknown [place] Allergy/416 0476(RXNORM) [place] 229612([facility] ED CT) Repository 10/13/2018 Drug lisinopril/S172099 Other Unknown [place] Allergy/416 658(RXNORM) [place] 229612([facility] ED CT) Repository 10/13/2018 Drug carvedilol/I524238 Other Unknown [place] Allergy/416 167(RXNORM) [place] [address]([facility] ED CT) Repository 11/02/2013 DRUG LISINOPRIL COUGH [facility] INGREDI/[address] [place] 428711(SNOM Repository ED CT) 07/01/2005 DRUG CEFUROXIME RASH [facility] INGREDI/419 [address] [place] 318597(SNOM Repository ED CT) 07/01/2005 Drug PENICILLINS HIVES [facility] Class/29900 [address] [place] 1003(SNOMED Repository CT) 07/01/2005 DRUG/139466 HYDROCODONE-ACETAM RASH [facility] 003(SNOMED INOPHEN [place] CT) Repository ENCOUNTERS ENCOUNTERS ADMIT/DISCHARGE ACCOUNT NUMBER ADMITTING ENCOUNTER LOCATION SOURCE CLASS 10/21/2018/10/21/19 [id number] Ambulatory [address] [place] Repository 10/21/2018/10/22/19 [id number] Ambulatory [address] Repository 10/13/2018/10/13/19 [id number] Ambulatory BMSBuilding: [place] 19 BMS.[facility] Repository 10/01/2018/10/01/20 [id number] Ambulatory [address] [place] Repository 10/01/2018/10/01/20 [id number] Ambulatory [address] Repository 10/01/2018/10/04/20 [id number] Ambulatory [address] Repository 09/24/2018 [id number] Ambulatory BMSBuilding: [facility] Repository 09/22/2018 [id number] Ambulatory [facility] ding:PSN Repository 09/19/2018/09/19/20 [id number] Emergency [address] ding:ED Repository 09/17/2018 [id number] Ambulatory [facility] ding:LAB Repository 09/08/2018/09/08/20 [id number] Ambulatory BMSBuilding: [place] 18 BMS.[facility] Repository 08/20/2018 [id number] Ambulatory [facility] ding:LAB Repository 08/16/2018 [id number] Ambulatory BMSBuilding: [facility] Repository 08/14/2018 [id number] Ambulatory [facility] ding:CVS Repository 08/14/2018 [id number] Ambulatory BMSBuilding: [place] [facility] Repository 08/13/2018/08/13/20 [id number] Emergency [address] ding:ED Repository 07/31/2018 [id number] Ambulatory [facility] ding:LAB Repository 07/31/2018/07/31/20 [id number] Ambulatory BMSBuilding: [place] [facility] 07/21/2018 [id number] Ambulatory [facility] Repository 07/08/2018/07/10/20 [id number] Ambulatory [address] Repository 06/02/2018 [id number] Ambulatory [facility] ding:RAD Repository 05/08/2018/05/08/20 [id number] Ambulatory BMSBuilding: [place] [facility] Repository 05/07/2018 [id number] Ambulatory BMSBuilding: [place] [facility] Repository 05/05/2018/05/05/20 [id number] Ambulatory BMSBuilding: [place] [facility] Repository 05/05/2018/05/05/20 [id number] Ambulatory BMSBuilding: [place] 18 [facility] Repository 05/04/2018/05/05/20 [id number] [facility] Ambulatory [address] ding:PCURoom Repository : PJD712Ixl: 1 05/04/2018 [id number] [place] Ambulatory BMSBuilding: [place] Zach BMS.[facility] Repository 05/04/2018 [id number] Ambulatory BMSBuilding: [place] BMS.[facility] Repository 04/20/2018 [id number] Ambulatory [facility] ding:LAB Repository 03/18/2018/03/20/20 [id number] Ambulatory [address] Repository 02/03/2018 [id number] Ambulatory [facility] ding:LAB Repository 12/26/2017/12/30/19 [id number] Ambulatory [address] Repository 12/23/2017/12/24/19 [id number] Ambulatory [address] Repository 12/12/2017 [id number] Ambulatory [facility] ding:LAB Repository 12/11/2017/12/12/19 [id number] Ambulatory BMSBuilding: [place] [facility] Repository 12/02/2017 [id number] Ambulatory BMSBuilding: [place] BMS.[facility] Repository 12/02/2017 [id number] Ambulatory BMSBuilding: [place] BMS.[facility] Repository 11/28/2017 [id number] Ambulatory [facility] ding:CVS Repository 11/26/2017/11/26/19 [id number] Ambulatory [address] ding:SDC Repository 11/17/2017/11/17/19 [id number] Ambulatory [address] Repository 11/11/2017/11/11/19 [id number] Emergency [place] ding:ED Repository 11/06/2017 [id number] Ambulatory [facility] ding:PSN Repository 11/04/2017/11/13/19 [id number] Ambulatory [address] Repository 10/31/2017 [id number] Ambulatory [facility] ding:CVS Repository PAYERS PAYERS ENCOUNTER GUARANTOR PAYER SUBSCRIBER SOURCE 10/13/2018 ARMAAN Rose Primary [place]AN [place] [id number] Insurance:LUCERO DONOVAN: [facility] [id number]: Repository [address]Bjd: (089) [id number] [phone] () Date:9277-41-28[address] [address]TX: 10/13/2018 Secondary NOT GIVENUNK [place] Insurance:SELF PAY [facility] Number: Effective Repository Date:2018-10-09 09/24/2018 ARMAAN Rose Primary ARMAAN [place] [id number] Insurance:LUCERO CHRISTIAN: [facility] [id number] Number: Repository 09130Grf: 330 [id number] [phone] (HP) Date:2138-40-25SZ [address] [place] [address] 79828LF: 09/24/2018 Secondary NOT GIVENUNK [place] Insurance:SELF PAY [facility] Number: Effective Repository Date:2018-09-24 09/22/2018 ARMAAN E Primary ARMAAN Rose [place] [id number] Insurance:LUCERO CHRISTIANB: [facility] [id number] Hospital Fort SmithPolicy Number: Repository 84673Sqs: 330 [id number] [phone] () Date:7234-59-63TF [address] [place] [address] 73689DO: 09/22/2018 Secondary NOT GIVENUNK [place] Insurance:SELF PAY [facility] Number: Effective Repository Date:2018-09-08 09/19/2018 ARMAAN E Primary ARMAAN Rose [place] [id number] Insurance:LUCERO CHRISTIANB: [facility] [id number] Hospital Fort SmithPolicy Number: Repository 14304Lhq: 330 [id number] [phone] () Date:6404-46-79SF [address] [place] [address] 07579MP: 09/19/2018 Secondary NOT GIVENUNK [place] Insurance:SELF PAY [facility] Number: Effective Repository Date:2018-09-19 09/17/2018 ARMAAN E Primary ARMAAN Rose [place] [id number] Insurance:LUCERO CHRISTIANB: [facility] [id number] Hospital Fort SmithPolicy Number: Repository 71038Inj: 330 [id number] [phone] () Date:6930-33-76FC [address] [place] [address] 84870MX: 09/17/2018 Secondary NOT GIVENUNK [place] Insurance:SELF PAY [facility] Number: Effective Repository Date:2018-09-17 09/08/2018 ARMAAN Rose Primary ARMAAN Rose [place] [id number] Insurance:LUCERO DONOVAN: [place] [id number] Number: Repository 068[address]Pyb: 330 [id number] [phone] () Date:1579-42-15EH [address] [place] [address] 12576FO: 09/08/2018 Secondary NOT GIVENUNK [place] Insurance:SELF PAY [facility] Number: Effective Repository Date:2018-09-07 08/20/2018 ARMAAN Rose Primary ARMAAN Rose [place] [id number] Insurance:LUCERO DONOVAN: [facility] [id number] Heart Hospital Number: Repository 67755Ici: 330 [id number] [phone] (HP) Date:0122-29-37QG [address] [place] [address] 08411QQ: 08/20/2018 Secondary NOT GIVENUNK [place] Insurance:SELF PAY [facility] Number: Effective Repository Date:2018-08-20 08/16/2018 ARMAAN Rose Primary ARMAAN Rose [place] [id number] Insurance:LUCERO DONOVAN: [address]10-30[facility] Number: Repository 66756Uzy: 330 [id number] [phone] (HP) Date:4366-57-89QY [address] [place] [address] 71027WI: 08/16/2018 Secondary NOT GIVENUNK [place] Insurance:SELF PAY [facility] Number: Effective Repository Date:2018-08-16 08/14/2018 ARMAAN Rose Primary ARMAAN Rose [place] [id number] Insurance:LUCERO DONOVAN: [address]10-30[facility] Number: Repository 14516Lob: 330 [id number] [phone] (HP) Date:8438-92-05RK [address] [place] [address] 60832WF: 08/14/2018 Secondary NOT GIVENUNK [place] Insurance:SELF PAY [facility] Number: Effective Repository Date:2018-07-31 08/14/2018 ARMAAN Rose Primary ARMAAN Rose [place] [id number] Insurance:LUCERO CHRISTIANB: [facility] [id number] Heart Hospital Number: Repository 71376Hek: 330 [id number] [phone] () Date:3974-93-86TQ [address] [place] [address] 16620VC: 08/14/2018 Secondary NOT GIVENUNK [place] Insurance:SELF PAY [facility] Number: Effective Repository Date:2018-08-14 08/13/2018 ARMAAN Rose Primary ARMAAN Rose [place] [id number] Insurance:LUCERO CHRISTIANB: [facility] [id number] Heart Hospital Number: Repository 14310Fdo: 330 [id number] [phone] () Date:9050-86-15UW [address] [place] [address] 82002FB: 08/13/2018 Secondary NOT GIVENUNK [place] Insurance:SELF PAY [facility] Number: Effective Repository Date:2018-08-13 07/31/2018 ARMAAN Rose Primary ARMAAN Rose [place] [id number] Insurance:LUCERO CHRISTIANB: [facility] [id number] Heart Hospital Number: Repository 62280Gnf: 330 [id number] [phone] () Date:1850-04-66QJ [address] [place] [address] 38220OI: 07/31/2018 Secondary NOT GIVENUNK [place] Insurance:SELF PAY [facility] Number: Effective Repository Date:2018-07-31 07/31/2018 ARMAAN E Primary ARMAAN [place] [id number] Insurance:LUCERO CHRISTIANB: [facility] [id number] PLANPolicy Number: Repository 18376Ksi: 330 [id number] [phone] (HP) Date:2135-71-29PA [address] [place] [address] 78112SY: 07/31/2018 Secondary NOT GIVENUNK [place] Insurance:SELF PAY [facility] Number: Effective Repository Date:2018-07-28 07/21/2018 [facility]an E [facility]:Bette ChristianB: [facility] Number: Effective [id number] Repository [facility]: [place], [place] [address]Dfj: () 06/02/2018 ARMAAN E Primary ARMAAN Rose [place] [id number] Insurance:LUCERO CHRISTIANB: [facility] [id number]ANPolicy Number: Repository 77223Exc: 330 [id number] [phone] (HP) Date:7225-75-58WE [address] [place] [address] 72547TY: 06/02/2018 Secondary NOT GIVENUNK [place] Insurance:SELF PAY [facility] Number: Effective Repository Date:2018-05-29 05/08/2018 ARMAAN E Primary ARMAAN Rose [place] [id number] Insurance:LUCERO GUTHRIEDOB: [facility] [id number] Hospital Fort SmithPolicy Number: Repository 40147Tuv: 330 [id number] [phone] (HP) Date:3147-29-95TI [address] [place] [address] 32392IW: 05/08/2018 Secondary NOT GIVENUNK [place] Insurance:SELF PAY [facility] Number: Effective Repository Date:2018-05-08 05/07/2018 ARMAAN E Primary ARMAAN Rose [place] [id number] Insurance:LUCERO DONOVAN: [facility] [id number] Heart Hospital Number: Repository 30994Sme: 330 [id number] [phone] (HP) Date:1099-65-78MW [address] [place] [address] 34802DN: 05/07/2018 Secondary NOT GIVENUNK [place] Insurance:SELF PAY [facility] Number: Effective Repository Date:2018-05-07 05/05/2018 ARMAAN Rose Primary ARMAAN Rose [place] [id number] Insurance:LUCERO CHRISTIANB: [address]10-30[facility] Number: Repository 73855Hdb: 330 [id number] [phone] (HP) Date:2305-04-69EJ [address] [place] [address] 73060RG: 05/05/2018 Secondary NOT GIVENUNK [place] Insurance:SELF PAY [facility] Number: Effective Repository Date:2018-05-05 05/05/2018 ARMAAN Rose Primary ARMAAN Rose [place] [id number] Insurance:LUCERO CHRISTIANB: [address]10-30[facility] Number: Repository 73112Ipe: 330 [id number] [phone] (HP) Date:9798-02-34CF [address] [place] [address] 18995PO: 05/05/2018 Secondary NOT GIVENUNK [place] Insurance:SELF PAY [facility] Number: Effective Repository Date:2018-05-05 05/04/2018 ARMAAN Rose Primary ARMAAN Rose [place] [id number] Insurance:LUCERO DONOVAN: [place] 147477-10-30[facility] Number: Repository 94645Lpr: 330 [id number] [phone] (HP) Date:8972-86-12PY [address] [place] [address] 91841FN: 05/04/2018 Secondary NOT GIVENUNK [place] Insurance:SELF PAY [facility] Number: Effective Repository Date:2018-05-04 05/04/2018 ARMAAN Rose Primary ARMAAN Rose [place] [id number] Insurance:LUCERO DONOVAN: [facility] [id number] Heart Hospital Number: Repository 76458Xig: 330 [id number] [phone] () Date:2603-33-38CK [address] [place] [address] 70213ZA: 05/04/2018 Secondary NOT GIVENUNK [place] Insurance:SELF PAY [facility] Number: Effective Repository Date:2018-05-04 05/04/2018 ARMAAN Rose Primary ARMAAN Rose [place] [id number] Insurance:LUCERO CHRISTIANB: [facility] [id number] Heart Hospital Number: Repository 90650Kli: 330 [id number] [phone] () Date:5110-11-87PN [address] [place] [address] 36428NS: 05/04/2018 Secondary NOT GIVENUNK [place] Insurance:SELF PAY [facility] Number: Effective Repository Date:2018-05-04 04/20/2018 ARMAAN Rose Primary ARMAAN [place] [id number] Insurance:LUCERO CHRISTIANB: [facility] [id number] Heart Hospital Number: Repository 71620Ngu: 330 [id number] [phone] () Date:2107-78-61RI [address] [place] [address] 52847UP: 04/20/2018 Secondary NOT GIVENUNK [place] Insurance:SELF PAY [facility] Number: Effective Repository Date:2018-04-20 02/03/2018 ARMAAN Rose Primary ARMAAN E [place] [id number] Insurance:LUCERO CHRISTIANB: [facility] [id number] Hospital Fort SmithPolicy Number: Repository 76386Rtc: [id number] [phone] Date:8312-19-41WX [address] (HP) [address] [place] [address] 96961VE: 02/03/2018 Secondary NOT GIVENUNK [place] Insurance:SELF PAY [facility] Number: Effective Repository Date:2018-02-03 12/12/2017 ARMAAN E Primary ARMAAN Rose [place] [id number] Insurance:LUCERO CHRISTIANB: [facility] [id number] Hospital Fort SmithPolicy Number: Repository 19200Onx: [id number] [phone] Date:7114-41-83GI [address] (HP) [address] [place] [address] 62013QW: 12/12/2017 Secondary NOT GIVENUNK [place] Insurance:SELF PAY [facility] Number: Effective Repository Date:2017-12-12 12/11/2017 ARMAAN E Primary ARMAAN Rose [place] [id number] Insurance:LUCERO CHRISTIANB: [facility] [id number] Heart Hospital Number: Repository 24466Fiv: [id number] [phone] Date:9080-05-89WF [address] (HP) [address] [place] [address] 09179IP: 12/11/2017 Secondary NOT GIVENUNK [place] Insurance:SELF PAY [facility] Number: Effective Repository Date:2017-09-12 12/02/2017 ARMAAN E Primary ARMAAN Rose [place] [id number] Insurance:LUCERO CHRISTIANB: [address]10-30[facility] Number: Repository 37331Wuy: 330 [id number] [phone] (HP) Date:1207-63-56KX [address] [place] [address] 96195QS: 12/02/2017 Secondary NOT GIVENUNK [place] Insurance:SELF PAY [facility] Number: Effective Repository Date:2017-10-17 12/02/2017 ARMAAN Rose Primary ARMAAN [place] [id number] Insurance:LUCERO DONOVAN: [facility] [id number] Heart Hospital Number: Repository 43680Ttw: [id number] [phone] Date:8316-95-34JZ [address] (HP) [address], [place] [address]WY: 12/02/2017 Secondary NOT GIVENUNK [place] Insurance:SELF PAY [facility] Number: Effective Repository Date:2017-11-03 11/28/2017 ARMAAN Rose Primary ARMAAN Rose [place] [id number] Insurance:DANOMilton CHRISTIAN: [facility] [id number] Heart Hospital Number: Repository 67672Hto: [id number] [phone] Date:0700-74-05BV [address] (HP) [address] [place] [address] 73300ZO: 11/28/2017 Secondary NOT GIVENUNK [place] Insurance:SELF PAY [facility] Number: Effective Repository Date:2017-11-28 11/26/2017 ARMAAN Rose Primary ARMAAN Rose [place] [id number] Insurance:LUCERO DONOVAN: [facility] [id number] Heart Hospital Number: Repository 97507Zrn: [id number] [phone] Date:0311-25-14XK [address] (HP) [address] [address]JZ: 11/26/2017 Secondary NOT GIVENUNK [place] Insurance:SELF PAY [facility] Number: Effective Repository Date:2017-11-05 11/11/2017 ARMAAN [place] Primary ARMAAN Rose [place] [id number] Insurance:LUCERO CHRISTIANB: [facility] [id number] Heart Hospital Number: Repository 48908Pro: [id number] [phone] Date:9095-30-02WN [address] (HP) [address] [place] [address] [place] [address]SC: 11/11/2017 Secondary NOT GIVENUNK [place] Insurance:SELF PAY [facility] Number: Effective Repository Date:2017-11-11 11/06/2017 ARMAAN E Primary ARMAAN [place] [id number] Insurance:LUCERO CHRISTIANB: [facility] [id number] Hospital Fort SmithPolicy Number: Repository 69308Mhz: 330 [id number] [phone] (HP) Date:3234-17-22AV [address] [place] [address] 93679SK: 11/06/2017 Secondary NOT GIVENUNK [place] Insurance:SELF PAY [facility] Number: Effective Repository Date:2017-10-17 10/31/2017 ARMAAN Rose Primary ARMANA [place] [id number] Insurance:LUCERO DONOVAN: [facility] [id number] Heart Hospital Number: Repository 74412Xxy: 330 [id number] [phone] (HP) Date:1699-41-69TH [address] [place] [address] 92942FL: 10/31/2017 Secondary NOT GIVENUNK [place] Insurance:SELF PAY [facility] Number: Effective Repository Date:2017-10-27
== END ==
PROVIDERS: Family Provider Internal Medicine; PCP Internal Medicine; Referring Provider Internal Medicine Cardiovascular Disease; Visit Provider Internal Medicine Cardiovascular Disease
DX: I25.10 Atherosclerotic heart disease of native coronary artery without angina pectoris (principal); I42.8 Other cardiomyopathies; Z86.79 Personal history of other diseases of the circulatory system; Z79.899 Other long term (current) drug therapy
CPT/HCPCS: 36415; 80048; 80076; 84436; 84443

== ENCOUNTER 2018-09-19 09:11 | Emergency (ER) | payer MEDICAID, SELFPAY ==
[2018-09-08 06:36] VITALS: BMI 40.1
[2018-09-19 09:11] VITALS: BP 139/80; PULSE 64; RESP 16; TEMP 36.6; O2SAT 97; BMI 40.7
--- NOTE | 2018-09-19 09:24 | EKG12_ITS ---
Test Reason : SOB Blood Pressure : / mmHG Vent. Rate : 063 BPM Atrial Rate : 063 BPM P-R Int : 178 ms QRS Dur : 104 ms QT Int : 458 ms P-R-T Axes : 012 004 040 degrees QTc Int : 468 ms Normal sinus rhythm Normal ECG Confirmed by ALEKSEY MARTINES, DEMETRIS ([id number]), editor sound JANETH DING ([id number]) on 09/23/2018 3:52:52 PM Referred By: Zach Castillo Confirmed By:DEMETRIS RYDER MD
--- NOTE | 2018-09-19 09:24 | RAD_ITS ---
STUDY: X-RAY CHEST REASON FOR EXAM: Male, 63 years old. Fall. Chest pain. TECHNIQUE: Single AP portable view of the chest. COMPARISON: 08/13/2018. FINDINGS: Continued probable chronic pulmonary changes with some interstitial prominence especially on the right. Stable mild elevation of the right hemidiaphragm. No infiltrates or effusions. There is mild cardiac enlargement. Normal mediastinum and annamarie. Normal visualized pulmonary arteries. Normal visualized aortic arch and descending thoracic aorta. Normal visualized thoracic spine. Normal visualized ribs, clavicles, and shoulders. There is no demonstrated abnormality of the visualized soft tissue structures of the upper abdomen. RAD/Chest 1 View (Portable) IMPRESSION: No change. Chronic pulmonary changes and no acute chest disease. Electronically Signed: Arnold Bustamante MD at 10:10 EST , Service support ,
--- NOTE | 2018-09-19 09:26 | ED.VISSUMM ---
- ER Visit Summary Date of Service: 09/19/18 Chief Complaint: CHF History of Present Illness: The patient is a 63 M who is here for CHF symptoms. He has had a 4 pound weight gain over the last few days. He reports increasing swelling to his legs and some shortness of breath. He has a history of CHF. He was instructed to come in to the emergency department on Friday, but was busy working. He was advised to take his Lasix twice a day. He has only been taking it once a day. He also complains of some left rib pain after falling and he complains of a sore on the bottom of the right foot. No fevers. No chest pain. No cough or sputum. He has a history of DVT and atrial fibrillation. He takes Xarelto. Physical Examination: Afebrile and vital signs are unremarkable. Patient is alert and oriented. No acute distress. Walking without any apparent difficulty. Sitting and moving comfortably. Speaking in full sentences. Lungs show mild crackles at the base. Heart regular. Abdomen soft. 4+ pitting lower extremity edema noted. Calves are nontender. Test Results: EKG, chest x-ray, labs pending. Emergency Department Course and Treatment: Patient has symptoms of CHF. His symptoms are worse than baseline, but nothing severe. His vitals are unremarkable. Clinically he appears well. We will check labs, x-ray, EKG. Patient may need to increase his Lasix. Will reassess. EKG showed sinus rhythm at a rate of 63. Chest x-ray showed nothing acute. White count 3.2, hemoglobin 12.3, platelets 127, BUN 25, creatinine 1.32. Troponin normal. BNP 596. Patient ambulated with a pulse ox on room air. He was 97-95%. He appears well clinically. I spoke with Dr. Heredia. I advised that the patient can increase his Lasix to twice a day and follow-up with Dr. Heredia in the office and Dr. Heredia was okay with that plan. Treatment Plan: As above Disposition: Discharge Impression: 1. CHF This note was generated with [employer] software. It may contain incorrect words, spelling, and punctuation that were not noted in review of the chart prior to signing ED Disposition - Plan for ED Patient: Chief Complaint: Shortness of Breath Referrals: Ada Maravilla MD [Primary Care Provider] -
[2018-09-19 09:43] VITALS: BP 134/76; PULSE 62; RESP 16; O2SAT 96; O2SAT 97
[2018-09-19 09:47] LABS: Absolute Lymphocyte Count 1.09 X10^3/ul (0.83-4.51); Absolute Neutrophil Count 1.7 X10^3/uL (2.0-7.7); Basophil# 0.01 X10^3/uL; Basophil% 0.3 % (0-1); Eosinophil# 0.13 X10^3/uL; Hematocrit 37.6 % (40-54); Hemoglobin 12.3 g/dl (13.0-16.5); Lymphocyte # 1.09 X10^3/ul (4.0); Lymphocyte % 33.6 % (19-41); Mean Corp Hgb Conc 32.7 g/gl (32-36); Mean Corpuscular Hgb 31.4 pg (27.0-32.0); Mean Corpuscular Volume 95.9 fL (80-94); Mean Platelet Vol. 9.7 fl (6.2-12.0); Monocyte# 0.35 X10^3/uL; Monocyte% 10.8 % (0-10); Neutrophil # 1.66 X10^3/uL (2.7-7.7); Neutrophil % 51.3 % (47-70); Platelet Count 127 K/mm3 (150-450); RBC Distribution Width SD 52.7 fl (35.1-43.9); Red Blood Count 3.92 M/mm3 (4.6-6.2); White Blood Count 3.2 K/mm3 (4.4-11.0)
[2018-09-19 09:48] LABS: POSITIVE COUNT NO; POSITIVE DIFFERENTIAL NO; POSITIVE MORPHOLOGY NO
[2018-09-19 10:05] LABS: Anion Gap 7 (5-15); BUN 25 mg/dL (7-18); BUN/Creat Ratio 18.9 RATIO (10-20); Calcium,Total 7.7 mg/dL (8.5-10.1); Chloride 107 mmol/L (98-107); Creatinine, Serum 1.32 mg/dL (0.70-1.30); EST Glomerular Filtration Rate 59 mL/min (>60); Est Glom Filt Rate - Afr Amer 71 mL/min (>60); Estimated Creatinine Clearance 66.42 ml/min; Glucose 117 mg/dL (74-106); Sodium Level 141 mmol/L (136-145)
[2018-09-19 10:10] LABS: BNP,B-Type NATRIURETIC PEPTIDE 596.6 pg/mL (0-100)
--- NOTE | 2018-09-19 10:44 | ED.DEP ---
ED Disposition - Plan for ED Patient: Chief Complaint: Shortness of Breath Instructions: ED CHF General Referrals: Carlo Heerdia MD [STAFF PHYSICIAN] -
[2018-09-19 10:48] VITALS: BP 135/75; PULSE 63; RESP 26; O2SAT 94; O2SAT 97
--- OUTSIDE RECORDS SUMMARY | 2018-12-23 09:20 | XMS RPT_ITS ---
:1955 Author Organization OHIP Support Name Relationship Address Phone DEVAUGHN GUTHRIE Unavailable [address] + [place] [address] UE Unavailable Unavailable Unavailable DEVAUGHN GUTHRIE Unavailable [address] + [place] [address] UE Unavailable Unavailable Unavailable DEVAUGHN GUTHRIE Unavailable [address] + [place] [address] UE Unavailable Unavailable Unavailable DEVAUGHN GUTHRIE Unavailable [address] + [place] [address] UE Unavailable Unavailable Unavailable DEVAUGHN GUTHRIE Unavailable [address] + [place] [address] UE Unavailable Unavailable Unavailable DEVAUGHN GUTHRIE Unavailable [address] + [place] [address] UE Unavailable Unavailable Unavailable DEVAUGHN GUTHRIE Unavailable [address] + [place] [address] UE Unavailable Unavailable Unavailable DEVAUGHN GUTHRIE Unavailable [address] + [place] [address] UE Unavailable Unavailable Unavailable DEVAUGHN GUTHRIE Unavailable [address] + [place] [address] UE Unavailable Unavailable Unavailable DEVAUGHN GUTHRIE Unavailable [address] + [place] [address] UE Unavailable Unavailable Unavailable DEVAUGHN GUTHRIE Unavailable [address] + [place] [address] UE Unavailable Unavailable Unavailable DEVAUGHN GUTHRIE Unavailable [address] + [place] [address] UE Unavailable Unavailable Unavailable DEVAUGHN GUTHRIE Unavailable [address] + [facility] [address] UE Unavailable Unavailable Unavailable Devaughn Guthrie Unavailable Unavailable + DEVAUGHN GUTHRIE Unavailable [address] + [facility] [address] UE Unavailable Unavailable Unavailable DEVAUGHN GUTHRIE Unavailable [address] + [facility] [place] [address] UE Unavailable Unavailable Unavailable DEVAUGHN GUTHRIE Unavailable [address] + [facility] [place] [address] UE Unavailable Unavailable Unavailable GENEVA GUTHRIEA Unavailable [address] + [facility] [place] [address] UE Unavailable Unavailable Unavailable DEVAUGHN GUTHRIE Unavailable [address] + [place] [address] UE Unavailable Unavailable Unavailable DEVAUGHN GUTHRIE Unavailable [address] + [facility] [place] [address] UE Unavailable Unavailable Unavailable DEVAUGHN GUTHRIE Unavailable [address] + [place] [address] UE Unavailable Unavailable Unavailable DEVAUGHN GUTHRIE Unavailable [address] + [place] [address] UE Unavailable Unavailable Unavailable DEVAUGHN GUTHRIE Unavailable [address] + [facility] [place] [address] UE Unavailable Unavailable Unavailable DEVAUGHN GUTHRIE Unavailable [address] [phone] [facility] [place] [address] UE Unavailable Unavailable Unavailable DEVAUGHN GUTHRIE Unavailable [address] [phone] [facility] [place] [address] UE Unavailable Unavailable Unavailable DEVAUGHN GUTHRIE Unavailable [address] [phone] [facility] [place] [address] UE Unavailable Unavailable Unavailable DEVAUGHN GUTHRIE Unavailable [address] [phone] [facility] [place] [address] UE Unavailable Unavailable Unavailable GUTHRIE, MESCALERO APACHE [place]available . + ., [place] . UE Unavailable Unavailable Unavailable GUTHRIE MESCALERO APACHE Unavailable [address] [phone] [place] [address] UE Unavailable Unavailable Unavailable GUTHRIE MESCALERO APACHE Unavailable [address] [phone] [place] [address] UE Unavailable Unavailable Unavailable GUTHRIE MESCALERO APACHE Unavailable [address] [phone] [place] [address] UE Unavailable Unavailable Unavailable GUTHRIE MESCALERO APACHE Unavailable . + ., [place] . UE Unavailable Unavailable Unavailable GUTHRIE, MESCALERO APACHE Unavailable . + ., [place] . UE Unavailable Unavailable Unavailable Care Team Providers Name Role Phone CINDY RICHARDSON (PA) Attending Unavailable NNEKA DENSON (CLINICAL INSTRUCTOR) Attending Unavailable UNGUR, REMUS A Referring Unavailable NOMAN ALLEN ([facility]) Attending Unavailable ABDULAZIZ HERRERA (PA) Attending Unavailable NNEKA DENSON (CLINICAL INSTRUCTOR) Attending Unavailable NNEKA DENSON (CLINICAL INSTRUCTOR) Attending Unavailable GANTA, BALDEMAR Referring Unavailable NNEKA DENSON (CLINICAL INSTRUCTOR) Referring Unavailable NNEKA DENSON (CLINICAL INSTRUCTOR) Referring Unavailable MAURIZIO MORTENSEN Attending Unavailable MAURIZIO MORTENSEN Referring Unavailable Rosita Swain . Attending Unavailable PROVIDER, UNKNOWN Referring Unavailable UNKNOWN, PROVIDER Primary Care Unavailable Ganta, Baldemar Primary Care Unavailable Stevie Alberts Attending Unavailable Zach Castillo Attending Unavailable Moodsydniepalatisha Zach Referring Unavailable Ganta, Baldemar Primary Care Unavailable Ganta, Baldemar Primary Care Unavailable Zach Dallas Attending Unavailable MoodispaZach good Attending Unavailable Moodispalatisha Zach Referring Unavailable Ganta, Baldemar Primary Care Unavailable Zach Castillo Attending Unavailable Moodispalatisha, Zach Referring Unavailable Ganta, Baldemar Primary Care Unavailable Carlo Heredia Attending Unavailable Ganta, Baldemar Referring Unavailable Zach Morillo Admitting Unavailable Ganta, Baldemar Primary Care Unavailable Jaswinderelfah, Ghasem Consulting Unavailable Karolina, Ghasem Attending Unavailable Zach Morillo Attending Unavailable Ganta, Baldemar Primary Care Unavailable Ganta, Baldemar Primary Care Unavailable Zach Morillo Admitting Unavailable Jaswinderelfah, Ghasem Attending Unavailable Zach Castillo Attending Unavailable Moodispaw, Zach Referring Unavailable Ganta, Baldemar Primary Care Unavailable Roof, Farhat H Attending Unavailable Roof, Farhat H Referring Unavailable Ganta, Baldemar Primary Care Unavailable Roof, Farhat H Attending Unavailable Ganta, Baldemar Referring Unavailable Ying, Armaan Attending Unavailable Ying, Armaan Referring Unavailable Ganta, Baldemar Primary Care Unavailable Mora, Aundrea Attending Unavailable Ganta, Baldemar Primary Care Unavailable Ungur, Aleida Attending Unavailable Ying, Armaan Attending Unavailable Ying, Armaan Referring Unavailable Ganta, Baldemar Primary Care Unavailable MoraAundrea Attending Unavailable Ganta, Baldemar Referring Unavailable Kieran Diop D.O. Attending Unavailable Josefina Ny.Daljit Referring Unavailable Ganta, Baldemar Primary Care Unavailable Moodispaw, Zach Attending Unavailable Moodispaw, Zach Referring Unavailable Ganta, Baldemar Primary Care Unavailable Mora, Aundrea Attending Unavailable Ganta, Baldemar Referring Unavailable Josefina Ny.Mignon. Attending Unavailable Yan, Carlo Referring Unavailable Moodispaw, Zach Attending Unavailable Moodispaw, Zach Referring Unavailable Ganta, Baldemar Primary Care Unavailable Yan, Carlo Attending Unavailable Yan, Carlo Referring Unavailable Ganta, Baldemar Primary Care Unavailable Moodispaw, Zach Attending Unavailable Moodispaw, Zach Referring Unavailable Moodispaw, Zach Attending Unavailable Moodispaw, Zach Referring Unavailable Ganta, Baldemar Primary Care Unavailable Moodispaw, Zach Attending Unavailable Ganta, Baldemar Referring Unavailable Moodispaw, Zach Attending Unavailable Morillo, Zach Referring Unavailable Moodispaw, Zach Attending Unavailable Kristopher, Markie Attending Unavailable Kristopher, Markie Referring Unavailable Ganta, Baldemar Primary Care Unavailable Gosia Boyle Attending Unavailable Ganta, Baldemar Referring Unavailable Ganta, Baldemar Primary Care Unavailable Josefina Ny.Daljit Attending Unavailable MoodispawZach Referring Unavailable Nolt, Tiffanie Attending Unavailable PROBLEMS PROBLEMS DATE TYPE CONDITION / CODE ATTENDING STATUS SOURCE 10/21/2018 Active Primary NA Active [place] osteoarthritis, Clinic Main unspecified ankle and [place] foot / Repository M19.079(ICD-10) 10/13/2018 Unknown G47.33 - Obstructive Mora, Active [facility] sleep apnea (adult) [facility] (pediatric) / Hospital G47.33(ICD-10) Repository 10/01/2018 Active Shortness of breath / NA Active [place] R06.02(ICD-10) Clinic Main [place] Repository 10/01/2018 Active Encounter for NA Active [place] therapeutic drug [facility] Main level monitoring / [place] Z51.81(ICD-10) Repository 10/01/2018 Active Other general NA Active [place] symptoms and signs / Clinic Main R68.89(ICD-10) [place] Repository 10/01/2018 Active Pain in right foot / NA Active [place] M79.671(ICD-10) Clinic Main [place] Repository 10/08/2018 Unknown R06.02 - Shortness of Kieran Diop, Active [facility] breath / [facility] R06.02(ICD-10) Hospital Repository 09/22/2018 Unknown R06.00 - Dyspnea, YanCarlo baldwin Active [place] unspecified / Community R06.00(ICD-10) Hospital Repository 09/22/2018 Unknown R06.01 - Orthopnea / YanCarlo baldwin Active [facility] R06.01(ICD-10) [facility], 1928–1983 Hospital Repository 09/22/2018 Unknown I42.8 - Other YanCarlo baldwin Active [place] cardiomyopathies / Community I42.8(ICD-10) Hospital Repository 08/24/2018 Unknown I48.91 - Unspecified Kieran Diop, Active [facility] atrial fibrillation / [facility] I48.91(ICD-10) Hospital Repository 09/03/2018 Unknown Z79.899 - Other long Moodispaw, Active [facility] term (current) drug [facility] therapy / Hospital Z79.899(ICD-10) Repository 07/31/2018 Unknown Z86.79 - Personal Moodispaw, Active [place] history of other [facility] diseases of the Hospital circulatory system / Repository Z86.79(ICD-10) 07/21/2018 Admitting Encounter for Rosita Swain . Active [facility] [employer] Diagnosis screening for oth System suspected endocrine Repository disorder / Z13.29(ICD-10) 07/21/2018 Admitting Gastro-esophageal Rosita Swain . Active [facility] [employer] Diagnosis reflux disease System without esophagitis / Repository K21.9(ICD-10) 07/21/2018 Admitting Upper abdominal pain, Rosita Swain . Active [facility] unspecified / System R10.10(ICD-10) Repository 06/12/2018 Unknown R07.9 - Chest pain, Moodispaw, Active [place] unspecified / [facility] R07.9(ICD-10) Hospital Repository 06/12/2018 Unknown R07.89 - Other chest Moodispaw, Active [facility] pain / R07.89(ICD-10) [facility] Hospital Repository 06/12/2018 Unknown I48.0 - Paroxysmal [place], Active [facility] atrial fibrillation / [facility] I48.0(ICD-10) Hospital Repository 06/12/2018 Unknown I11.0 - Hypertensive [place], Active [place] heart disease with [facility] heart failure / Hospital I11.0(ICD-10) Repository 12/04/2017 Unknown S83.241A - Other tear Armaan He Active [facility] of medial meniscus, Formerly [facility], [facility]–1983 current injury, right Hospital knee, initial Repository encounter / S83.241A(ICD-10) 11/11/2017 Unknown S22.39XA - Fracture Ungur, Remus Active [facility] of one rib, Formerly [facility], [facility] unspecified side, Hospital initial encounter for Repository closed fracture / S22.39XA(ICD-10) 10/28/2017 Unknown R06.09 - Other forms Kieran Brown, Active [facility] of dyspnea / [facility] R06.09(ICD-10) Hospital Repository 10/31/2017 Unknown I82.409 - Acute [place], Active [facility] embolism and [facility] thrombosis of Hospital unspecified deep Repository veins of unspecified lower extremity / I82.409(ICD-10) PROCEDURES PROCEDURES No Procedure Records FoundRESULTS RESULTS PROGRESS Observed: 10/21/2018 Status: COMPLETED Source: [place] 10:58 AM [facility] REPOSITORY HNO ID: [id number] Author: Willow Shoemaker (Rt) Service: (none) Author Type: Front Line Leader Type: Progress Notes Filed: 10/21/2018 10:58 AM Note Text: Radiology Service Progress Note PATIENT NAME: Armaan Guthrie DATE OF SERVICE: October 21, 2018 [...] 3V AP/LAT/OBL Observed: 10/21/2018 Status: F Source: [facility] 10:57 AM [facility] REPOSITORY * * *Final Report* * * [...] in the lower extremity. IMPRESSION: PES PLANUS Material Coordinator: PK Transcribe Date/Time: Oct 22 2018 10:22A Dictated by : DEANNE ABREU MD This examination was interpreted and the report reviewed and electronically signed by: DEANNE ABREU MD on Oct 22 2018 10:25AM EST [id number] PROGRESS Observed: 10/21/2018 Status: COMPLETED Source: [place] 10:14 AM [facility] REPOSITORY HNO ID: [id number] Author: Maurizio Mortensen Service: (none) Author Type: [...] - Herpes simplex type 2 infection - RINCON (hard of hearing) 09/08/2015 - Inguinal hernia [...] DPM CNOV Observed: 10/21/2018 Status: COMPLETED Source: [place] 9:55 AM [facility] REPOSITORY Office Visit (PODIWS) ARMAAN GUTHRIE ([id number]) 1955 M [facility] Date Time Provider Department 10/21/18 9:55 AM [...] A1C (%) Date Value 11/08/2014 5.6 HBA1C, [place] (%) Date Value 12/04/2010 5.6 PCP: BALDEMAR BRINK MD PAST MEDICAL HISTORY Diagnosis Date - Arrhythmia - Atrial fibrillation ([facility]) - Bilateral edema of lower extremity 04/02/2016 - CHF (congestive heart failure) ([facility]) - Detached retina 12/26/20142001 he had a surgery done. - Diverticulosis of colon (without mention of hemorrhage) Diverticulosis. 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, skull fracture as - Hemorrhoids Hemorrhoids - Herpes labialis 11/03/2014 - Herpes simplex type 2 infection - RINCON (hard of hearing) 09/08/2015 - Inguinal hernia [...] Laterality Date - COLONOSCOP W/ OR W/O [facility] SPEC 10/26/13 Repeat 2023 - COLONOSCOP W/ OR W/O [facility] SPEC 08/11/15 Colonoscopy - COLONOSCOPY 11/27/01 [...] [M19.079] Order(s):XR ANKLE GENERAL 3V AP/LAT/OBL LT [[id number]] Order #: [id number] FUTURE Prescriptions as of 10/21/2018 Sig: FUROSEMIDE [...] comorbidity) [E6*INVALID FOR* Pulmonary hypertension, secondary (HCC) [QGV952*INVALID FOR* Varicose vein of leg [I83.90] INVALID [...] 10/21/18 PROGRESS Observed: 10/21/2018 Status: COMPLETED Source: [place] 9:49 AM [facility] RE[facility]IT[facility] O ID: [id number] Author: lEi Jones Ma Service: (none) Author Type: (none) [...] VISIT REPORT Observed: 10/13/2018 Status: F Source: [place] 8:28 AM [facility] REPOSITORY [facility] [place] [address] [place] [address] OFFICE VISIT Date of Service: 10/13/18 MR#: [id number] Acct: [id number] Name: ARMAAN GUTHRIE Rep #: [id number] : 1955 Provider: Aundrea Mora Age/Sex: 63/M Location: [facility].PMW Status: Signed Assessment AND Plan 1. GOMEZ [...] extremity edema. He has not added any itjl-lpj-dyotuqt medications. 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 Diabetes Care. 2016.39(Suppl 1). LAB [...] Performed By: #### BMP, NTBNP, TSH #### [facility] [address] [place], [place] [address] NT PRO BNP Collected: 10/01/2018 Status: F Source: [place] 5:04 PM [facility] REPOSITORY TYPE CODE TESTS RESULT OUT OF REFERENCE UNITS RANGE LAB PBNP <125 pg/mL High PRO B Natr 1488 Peptide Performed By: #### BMP, NTBNP, TSH #### [facility] [employer] [address] [place], [place] [address] TSH Collected: 10/01/2018 Status: F Source: [place] 5:04 PM [facility] [place] REPOSITORY TYPE CODE TESTS RESULT OUT OF RANGE REFERENCE UNITS LAB TSH 0.400-5.500 uU/mL TSH 1.850 Performed By: #### BMP, NTBNP, TSH #### [facility] [employer] [address] [place], [place] [address] XR FOOT 3V AP/LAT/OBL Observed: 10/01/2018 Status: F Source: [place] RT 4:53 PM [facility] REPOSITORY * * *Final Report* * * [...] foreign body. IMPRESSION: NO RADIOPAQUE FOREIGN BODY. Material Coordinator: PSCB Transcribe Date/Time: Oct 02 2018 2:15P Dictated by : DEANNE ABREU MD This examination was interpreted and the report reviewed and electronically signed by: DEANNE ABREU MD on Oct 02 2018 2:21PM EST [id number] Observed: 10/01/2018 Status: COMPLETED Source: [place] 4:38 PM [facility] [place] REPOSITORY HNO ID: [id number] Author: Mayelin Saucedo Rt Service: (none) Author [...] PM PROGRESS Observed: 10/01/2018 Status: COMPLETED Source: [place] 3:36 PM [facility] [place] REPOSITORY O ID: [id number] Author: Nneka Denson Service: (none) Author Type: [...] he states he was last seen at [facility] ~2 weeks ago for SOB. He [...] - Herpes simplex type 2 infection - RINCON (hard of hearing) 09/08/2015 - Inguinal hernia [...] plan. CNOV Observed: 10/01/2018 Status: COMPLETED Source: [place] 3:20 PM [facility] REPOSITORY Office Visit (INTMWS) ARMAAN GUTHRIE ([id number]) 1955 M [facility] Date Time Provider Department 10/01/18 3:20 PM NNEKA DENSON ([facility]) INTMWS During your visit today, we [...] he states he was last seen at [facility] ~2 weeks ago for SOB. He [...] - Herpes simplex type 2 infection - RINCON (hard of hearing) 09/08/2015 - Inguinal hernia [...] medication, Patient agreeable to restart. Nneka Denson APRN.CLINICAL INSTRUCTOR Prescription instructions reviewed with patient as applicable. Potential red flag symptoms discussed with the patient. Reviewed appropriate action plan to take if red flag symptoms occur. Patient agreeable to treatment plan. Nneka Denson APRN.CLAUS 10/01/2018 4:21 PM Signed Right foot: will do xray given length of symptoms and uncertain of possible foreign body. If xrays are negative should treat at plantar wart. Can spanish moss picker over the counter plantar wart. Fluid [...] MUST RESTART XARELTO! Referring Provider: BALDEMAR BRINK [[id number]] Allergies As of Date: 10/01/2018 Noted Allergy Reaction CEFTIN (CEFUROXIME) 07/01/2005 2 - Rash LISINOPRIL 11/02/2013 3 - Cough PENICILLINS 07/01/2005 4 - Hives VICODIN (HYDROCODONE-ACETAMINOPHE*07/01/2005 2 - Rash Date Reviewed: 10/01/2018 Reviewed by: Virginia Silver Client Onboarding Analyst - Fully Assessed Reason for Visit: Edema [39] Primary Visit Diagnosis:SOB (shortness of breath) on exertion [R06.02] Other Visit Diagnoses:Medication monitoring encounter [Z51.81] Cold intolerance [R68.89] Right foot pain [M79.671] Order(s):BASIC METABOLIC PNL [SQBMP] Order #: [id number] FUTURE NT PRO BNP [SQNTBNP] Order #: [id number] FUTURE TSH BLD [SQTSH] Order #: [id number] FUTURE XR FOOT GENERAL 3V AP/LAT/OBL RT [[id number]] Order #: [id number] FUTURE Omeprazole 40 mg capsuleTake 1 capsule [...] comorbidity) [E6*INVALID FOR* Pulmonary hypertension, secondary (HCC) [SWP533*INVALID FOR* Varicose vein of leg [I83.90] INVALID FOR* More... Other instructions from your clinician: Right foot: will do xray given length of symptoms and uncertain of possible foreign body. If xrays are negative should treat at plantar wart. Can spanish moss picker over the counter plantar wart. Fluid [...] WALK TEST Observed: 09/24/2018 Status: F Source: [place] 3:02 PM [facility] REPOSITORY [facility] Pulmonary Services/Neurology [address] [place] [address] MR#: [id number] Acct: [id number] Name: ARMAAN GUTHRIE Rep #: [id number] : 1955 63 From: Kieran Diop DO Referring Dr: Carlo Heredia MD Date: Ordering Dr: Sex: M C Location: PSN PSN 6 Minute Walk Test - 6 Minute Walk Test 6 Minute Walk Test: 6 Minute Walk Test PSN:6-Minute Walk Test Start: 09/22/18 08:39 Freq: Status: Active Protocol: RESP.6MINW Document 09/22/18 08:30 HG (Rec: 09/22/18 08:41 HG [id number]) 6 Minute Walk Test Date Performed 09/22/18 [...] Dictated: 09/24/18 1501 Date Transcribed: 09/24/18 150 Material Coordinator: Kieran Diop DO Signed 12 LEAD ELECTROCARDIOGRAM Observed: 09/23/2018 Status: F Source: [place] 3:53 PM [facility] REPOSITORY [facility] Cardiovascular Services [address] [place] [address] 12 Lead EKG 09/19/18 0932 MR#: [id number] Acct: [id number] Name: ARMAAN GUTHRIE Rep #: [id number] : 1955 63 From: Morro Perez MD [...] ECG Confirmed by MORRO PEREZ MD ([id number]), online content editor JANETH DING ([id number]) on 09/23/2018 3:52:52 PM Referred By: Zach Castillo Confirmed By:MORRO PEREZ MD 09/23/18 1552 Date Morro Perez MD CC: Baldemar Brink MD; Stevie Alberts MD Signed EMERGENCY DEPARTMENT Observed: 09/19/2018 Status: F Source: [place] SUMMARY 4:56 PM [facility] REPOSITORY [facility] Medical Records Department [address] [place] [address] Emergency Department Summary 09/19/18 0926 MR#: [id number] Acct: [id number] Name: ARMAAN GUTHRIE Rep #: [id number] : 1955 63 From: Stevie Alberts MD [...] 1. CHF This note was generated with [employer] dictation software. It may contain incorrect words, [...] problems, contact your Primary Care Provider. Call [facility] ([phone]) or report to the closest Emergency Room. Call 911 if necessary. 09/19/18 0679 <Electronically signed by Stevie Alberts MD> Date Stevie Alberts MD Cosigner Signature (If Indicated): Date CC: Baldemar Brink MD DISCHARGE INSTRUCTION Observed: 09/19/2018 Status: F Source: [place] 4:56 PM [facility] REPOSITORY [facility] Medical Records Department [address] [place] [address] Discharge Instruction 09/19/18 1044 MR#: [id number] Acct: [id number] Name: ARMAAN GUTHRIE Rep #: [id number] : 1955 63 From: Stevie Alberts MD [...] your Primary Care Provider. Call [facility] ([phone]) or report to the closest Emergency Room. Call 911 if necessary. 09/19/18 1656 <Electronically signed by Stevie Alberts MD> Date Stevie Alberts MD Cosigner Signature (If Indicated): Date CC: Baldemar Brink MD CBC W/DIFF, AUTOMATED Collected: 09/19/2018 Status: F Source: [place] 9:40 AM [facility] REPOSITORY TYPE CODE TESTS RESULT OUT OF [...] Lymph 1.09 Performed By: #### L100.0100 #### [facility] [address] [place], [address] BASIC METABOLIC Collected: 09/19/2018 Status: F Source: [place] PROFILE ([facility]) 9:40 AM [facility] REPOSITORY TYPE CODE TESTS RESULT OUT OF [...] 7 Performed By: #### L500.2500, L501.4010 #### [facility] [address] [place], [place], [id number] TROPONIN-I Collected: 09/19/2018 Status: F Source: [place] 9:40 AM [facility] REPOSITORY TYPE CODE TESTS RESULT OUT OF RANGE REFERENCE UNITS LAB L501.4010 <0.045 ng/mL Normal 0.019 TROPONIN-I Result Comment: TROPONIN-I EXPECTED VALUES <0.045 Negative 0.045 - 0.590 Consistent with Cardiac Damage > OR = 0.600 Critical Value Not every elevated troponin is indicative of PA. These values should be used with clinical judgement in examining the patient's clinical picture for diagnosis. To establish a diagnosis of PA versus myocardial injury, there must be a demonstrated rise and/or fall in the troponin values, in addition to ischemic symptoms, EKG changes, new regional wall motion abnormality, and/or angiographical evidence. PLEASE NOTE: REFERENCE RANGES EDITED 18 Performed By: #### L500.2500, L501.4010 #### [facility] [address] [place], [address] BNP,B-TYPE NATRIURETIC Collected: 09/19/2018 Status: F Source: [place] PEPTIDE 9:40 AM [facility] REPOSITORY TYPE CODE TESTS RESULT OUT OF RANGE REFERENCE UNITS LAB L503.6620 0-100 pg/mL High B-TYPE 596.6 ANA PEP Performed By: #### L503.6620 #### [facility] [address] [place], [address] CHEST 1 VIEW Observed: 09/19/2018 Status: F Source: [place] (PORTABLE) 9:26 AM [facility] REPOSITORY [facility] Imaging Services [address] [place] [address] Chest 1 View (Portable) MR#: [id number] Acct: [id number] Name: ARMAAN GUTHRIE Rep #: [id number] : 1955 M 63 From: Arnold Bustamante MD PCP: Baldemar Brink MD Status: REG ER Study: Chest 1 View (Portable) Date of Exam: 09/19/18 Exam# [id number] Ordering Dr: Stevie Alberts MD STUDY: X-RAY [...] CC: Baldemar Brink MD; Stevie Alberts MD Material Coordinator: Signed BASIC METABOLIC Collected: 09/17/2018 Status: F Source: [place] PROFILE (BMP) 4:44 PM [facility] REPOSITORY TYPE CODE TESTS RESULT OUT OF [...] By: #### L500.2500, L500.3400, L501.9310, L501.9520 #### [facility] [address] [place], [address] LIVER PROFILE Collected: 09/17/2018 Status: F Source: [place] 4:44 PM [facility] REPOSITORY TYPE CODE TESTS RESULT OUT OF [...] By: #### L500.2500, L500.3400, L501.9310, L501.9520 #### [facility] [address] [place], [address] T4 TOTAL, THYROXIN Collected: 09/17/2018 Status: F Source: [place] 4:44 PM [facility] REPOSITORY TYPE CODE TESTS RESULT OUT OF REFERENCE UNITS RANGE LAB L501.9310 4.5-12.1 ug/dL T4 High THYROXIN 15.1 Performed By: #### L500.2500, L500.3400, L501.9310, L501.9520 #### [facility] [address] [place], [place], [address] THYROID STIM HORMONE Collected: 09/17/2018 Status: F Source: [place] (TSH) 4:44 PM [facility] REPOSITORY TYPE CODE TESTS RESULT OUT OF RANGE REFERENCE UNITS LAB L501.9520 0.358-3.74 uIU/mL Normal TSH 2.20 Performed By: #### L500.2500, L500.3400, L501.9310, L501.9520 #### [facility] [address] [place], [place], [address] PULMONARY VISIT REPORT Observed: 09/08/2018 Status: F Source: [place] 7:09 AM [facility] REPOSITORY [facility] [address] [place], [place] [address] OFFICE VISIT Date of Service: 09/08/18 MR#: [id number] Acct: [id number] Name: ARMAAN GUTHRIE Rep #: [id number] : 1955 Provider: Carlo Heredia MD Age/Sex: 63/M Location: [facility] Status: Signed Assessment AND Plan Problems 1. 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, [address] 12 LEAD ELECTROCARDIOGRAM Observed: 08/17/2018 Status: F Source: [place] 2:31 PM [facility] REPOSITORY [facility] Cardiovascular Services [address] [place] [address] 12 Lead EKG 08/13/18 0511 MR#: [id number] Acct: [id number] Name: ARMAAN GUTHRIE Rep #: [id number] : 1955 63 From: Stevie Rondon MD [...] Normal ECG Confirmed by STEVIE RONDON ([id number]), online content editor JANETH DING ([id number]) on 08/17/2018 2:31:14 PM Referred By: DR DALLAS Confirmed By:STEVIE RONDON 08/17/18 1431 Date Stevie Rondon MD CC: Baldemar Brink MD; Zach Dallas MD Signed PULMONARY FUNCTION Observed: 08/16/2018 Status: F Source: [place] TEST 7:01 AM [facility] REPOSITORY [facility] Pulmonary Services/Neurology [address] [place] [address] MR#: [id number] Acct: [id number] Name: ARMAAN GUTHRIE Rep #: [id number] : 1955 63 From: Kieran Diop DO Referring Dr: Zach Castillo MD Status: REG CLI Ordering Dr: Date: Location: [facility] Sex: M C INTRODUCTION: The patient is [...] MD Date Dictated: 08/16/18657 Date Transcribed: 08/16/18657 Material Coordinator: JOSE Signed ECHO, COMPLETE W/ Observed: 08/14/2018 Status: F Source: [place] CONTRAST 7:03 PM [facility] REPOSITORY [facility] Cardiovascular Services [address] [place] [address] Echo Complete W/ Contrast 08/14/18 09 MR#: [id number] Acct: [id number] Name: ARMAAN GUTHRIE Rep #: [id number] : 1955 63 From: Zach Castillo MD Attending Dr: Zach Castillo MD Status: REG CLI Ordering Dr: Zach Castillo MD Date: 08/14/18 Location: [facility] Sex: M C Admitted: Reason For Study: [...] MD Date Dictated: 08/14/18900 Date Transcribed: 08/14/181901 Material Coordinator: Signed BASIC METABOLIC Collected: 08/14/2018 Status: F Source: [place] PROFILE (BMP) 10:26 AM [facility] REPOSITORY TYPE CODE TESTS RESULT OUT OF [...] Performed By: #### L500.2500, L500.3400, L500.4100 #### [facility] [address] [place], [place], [address] LIVER PROFILE Collected: 08/14/2018 Status: F Source: [place] 10:26 AM [facility] REPOSITORY TYPE CODE TESTS RESULT OUT OF [...] Performed By: #### L500.2500, L500.3400, L500.4100 #### [facility] [address] [place], [address] LIPID PROFILE Collected: 08/14/2018 Status: F Source: [place] 10:26 AM [facility] REPOSITORY TYPE CODE TESTS RESULT OUT OF [...] Performed By: #### L500.2500, L500.3400, L500.4100 #### [facility] [address] [place], [address] EMERGENCY DEPARTMENT Observed: 08/13/2018 Status: F Source: [place] SUMMARY 6:42 AM [facility] REPOSITORY [facility] Medical Records Department [address] [place] [address] Emergency Department Summary 08/13/18 0603 MR#: [id number] Acct: [id number] Name: ARMAAN GUTHRIE Rep #: [id number] : 1955 63 From: Zach Dallas MD [...] Finger contusion This note was generated with [employer] dictation software. It may contain incorrect words, [...] your Primary Care Provider. Call [facility] ([phone]) or report to the closest Emergency Room. Call 911 if necessary. 08/13/18 0642 <Electronically signed by Zach Dallas MD> Date Zach Dallas MD Cosigner Signature (If Indicated): Date CC: Baldemar Brink MD DISCHARGE INSTRUCTION Observed: 08/13/2018 Status: F Source: [place] 6:[address] [facility] Medical Records Department [address] [place] [address] Discharge Instruction 08/13/18612 MR#: [id number] Acct: [id number] Name: ARMAAN GUTHRIE Rep #: [id number] : 1955 63 From: Zach Dallas MD [...] your Primary Care Provider. Call [facility] ([phone]) or report to the closest Emergency Room. Call 911 if necessary. 08/13/18613 <Electronically signed by Zach Dallas MD> Date Zach Dallas MD Cosigner Signature (If Indicated): Date CC: Baldemar Brink MD FINGER(S) MIN 2 VIEWS Observed: 08/13/2018 Status: F Source: [place] 6:[address] [facility] Imaging Services [address] [place] [address] Finger(s) Min 2 Views MR#: [id number] Acct: [id number] Name: ARMAAN GUTHRIE Rep #: [id number] : 1955 M 63 From: Nneka Farfan MD PCP: Baldemar Brink MD Status: DEP ER Study: Finger(s) Min 2 Views Date of Exam: 08/13/18 Exam# [id number] Ordering Dr: Zach Dallas MD STUDY: X-RAY [...] CC: Baldemar Brink MD; Zach Dallas MD Material Coordinator: Signed CHEST 1 VIEW Observed: 08/13/2018 Status: F Source: [place] (PORTABLE) 4:55 AM [facility] REPOSITORY [facility] Imaging Services [address] [place] [address] Chest 1 View (Portable) MR#: [id number] Acct: [id number] Name: ARMAAN GUTHRIE Rep #: [id number] : 1955 M 63 From: Nneka Farfan MD PCP: Baldemar Brink MD Status: REG ER Study: Chest 1 View (Portable) Date of Exam: 08/13/18 Exam# [id number] Ordering Dr: Zach Dallas MD STUDY: X-RAY [...] CC: Baldemar Brink MD; Zach Dallas MD Material Coordinator: Signed CBC W/DIFF, AUTOMATED Collected: 08/13/2018 Status: F Source: [place] 4:45 AM [facility] REPOSITORY TYPE CODE TESTS RESULT OUT OF [...] Lymph 1.94 Performed By: #### L100.0100 #### [facility] [address] [place], [address] COMPREHENSIVE METABOLIC Collected: 08/13/2018 Status: F Source: [facility] 4:45 AM [facility] REPOSITORY TYPE CODE TESTS RESULT OUT OF [...] 9 Performed By: #### L500.4050, L501.4010 #### [facility] [address] [place], [place], [address] TROPONIN-I Collected: 08/13/2018 Status: F Source: [place] 4:45 AM [facility] REPOSITORY TYPE CODE TESTS RESULT OUT OF RANGE REFERENCE UNITS LAB L501.4010 <0.045 ng/mL Normal 0.028 TROPONIN-I Result Comment: TROPONIN-I EXPECTED VALUES <0.045 Negative 0.045 - 0.590 Consistent with Cardiac Damage > OR = 0.600 Critical Value Not every elevated troponin is indicative of PA. These values should be used with clinical judgement in examining the patient's clinical picture for diagnosis. To establish a diagnosis of PA versus myocardial injury, there must be a demonstrated rise and/or fall in the troponin values, in addition to ischemic symptoms, EKG changes, new regional wall motion abnormality, and/or angiographical evidence. PLEASE NOTE: REFERENCE RANGES EDITED 18 Performed By: #### L500.4050, L501.4010 #### [facility] [address] [place], [place], [address] CARDIOLOGY VISIT Observed: 07/31/2018 Status: F Source: [place] REPORT 3:09 PM [facility] REPOSITORY [facility] 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 Cardiac cath: 06/28/2009: [facility]: BREANN Gerardo The patient was found to [...] 07/31/2018 Status: F Source: [place] 2:52 PM [facility] REPOSITORY TYPE CODE TESTS RESULT OUT OF [...] Performed By: #### L500.3400, L501.9520, L506.0400 #### [facility] [address] [place], [place], [address] THYROID STIM HORMONE Collected: 07/31/2018 Status: F Source: [place] (TSH) 2:52 PM [facility] REPOSITORY TYPE CODE TESTS RESULT OUT OF RANGE REFERENCE UNITS LAB L501.9520 0.358-3.74 uIU/mL Normal TSH 1.49 Performed By: #### L500.3400, L501.9520, L506.0400 #### [facility] [address] [place], [address] T4 FREE DIRECT Collected: 07/31/2018 Status: F Source: [place] 2:52 PM [facility] REPOSITORY TYPE CODE TESTS RESULT OUT OF REFERENCE UNITS RANGE LAB L506.0400 0.76-1.46 ng/dL High T4 FREE 1.69 DIRECT Performed By: #### L500.3400, L501.9520, L506.0400 #### [facility] [address] [place], [place], [address] HEMOGRAM W/ AUTODIFF Collected: 07/21/2018 Status: F Source: [facility] [employer] 12:28 PM SYSTEM REPOSITORY TYPE CODE TESTS [...] By: #### HEMDF, LIPA4, CMP3, TSH5 #### [employer] [address] [place] [phone] LIPASE Collected: 07/21/2018 Status: F Source: [employer] 12:28 PM SYSTEM REPOSITORY TYPE CODE TESTS RESULT OUT OF RANGE REFERENCE UNITS LAB LIPA4 23-300 U/L Normal Lipase 50 Performed By: #### HEMDF, LIPA4, CMP3, TSH5 #### [employer] [address] [place] [phone] COMP METABOLIC PANEL Collected: 07/21/2018 Status: F Source: [employer] 12:28 PM SYSTEM REPOSITORY TYPE CODE TESTS [...] By: #### HEMDF, LIPA4, CMP3, TSH5 #### [employer] [address] [place] [phone] THYROID STIM. Collected: 07/21/2018 Status: F Source: [employer] HORMONE 12:28 PM SYSTEM REPOSITORY TYPE CODE TESTS RESULT OUT OF RANGE REFERENCE UNITS LAB TSH5 0.465-4.680 u[IU]/mL Normal Thyroid Stim. 0.875 Hormone Performed By: #### HEMDF, LIPA4, CMP3, TSH5 #### [employer] [address] [place] [phone] TTG, IGA Collected: 07/21/2018 Status: F Source: [employer] 12:28 PM SYSTEM REPOSITORY TYPE CODE TESTS [...] positive predictive value for disease. Performed by [facility], [address] [place] [address] [email or web address], Winston Velez MD - Lab. Director Performed By: #### TTGA2, TTGG #### The performing lab is in the report. TTG, IGG Collected: 07/21/2018 Status: F Source: [employer] 12:28 PM SYSTEM REPOSITORY TYPE CODE TESTS [...] not rule out gluten-sensitive enteropathy. Performed by [facility], [address] [place] [address] [email or web address], Winston Velez MD - Lab. Director Performed By: #### TTGA2, TTGG #### The performing lab is in the report. PROGRESS Observed: 07/08/2018 Status: COMPLETED Source: [place] 11:34 AM [facility] REPOSITORY HNO ID: [id number] Author: Nneka (Claus) Bhaskar Service: (none) Author [...] - Herpes simplex type 2 infection - RINCON (hard of hearing) 09/08/2015 - Inguinal hernia [...] Laterality Date - COLONOSCOP W/ OR W/O [facility] SPEC 10/26/13 Repeat 2023 - COLONOSCOP W/ OR W/O [facility] SPEC 08/11/15 Colonoscopy - COLONOSCOPY 11/27/01 [...] plan. CNOV Observed: 07/08/2018 Status: COMPLETED Source: [place] 11:20 AM [facility] REPOSITORY Office Visit (INTMWS) ARMAAN GUTHRIE ([id number]) 1955 M [facility] Date Time Provider Department 07/08/18 11:20 AM NNEKA DENSON ([facility]) INTMWS During your visit today, we [...] - Herpes simplex type 2 infection - RINCON (hard of hearing) 09/08/2015 - Inguinal hernia [...] Laterality Date - COLONOSCOP W/ OR W/O [facility] SPEC 10/26/13 Repeat 2023 - COLONOSCOP W/ OR W/O [facility] SPEC 08/11/15 Colonoscopy - COLONOSCOPY 11/27/01 [...] QUADRIVALENT AGE 3 YRS PLUS + IM [[id number]] Order #: [id number] mupirocin (BACTROBAN) 2 % ointmentApply 1 application [...] comorbidity) [E6*INVALID FOR* Pulmonary hypertension, secondary (HCC) [XYS920*INVALID FOR* Varicose vein of leg [I83.90] INVALID [...] ESOPHAGUS ONLY Observed: 06/02/2018 Status: F Source: [place] 8:19 AM [facility] REPOSITORY [facility] Imaging Services [address] [place] [address] Esophagus Only MR#: [id number] Acct: [id number] Name: ARMAAN GUTHRIE Rep #: [id number] : 1955 M 62 From: Duke Duran MD PCP: Baldemar Brink MD Status: REG CLI Study: Esophagus Only Date of Exam: 06/02/18 Exam# [id number] Ordering Dr: Markie Summers MD STUDY: X-RAY [...] Duke Duran MD at 10:38 EDT Tel [phone], Service support , CC: Baldemar Brink MD; Markie Summers MD Material Coordinator: Signed CARDIOLOGY VISIT Observed: 05/08/2018 Status: F Source: [place] REPORT 10:48 AM [facility] REPOSITORY [facility] [place] 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 Coronary artery disease involving [place] coronary artery of [place] heart without angina pectoris I25.10 Plan Stable, [...] vis,est,level 3 Diagnoses Coronary artery disease involving [place] coronary artery of [place] heart without angina pectoris I25.10 Coronary Disease-Associated Artery/Lesion type: [place] artery [place] vs. transplanted heart: [place] heart Associated angina: without angina Essential hypertension I10 Hypertension type: essential hypertension PAF (paroxysmal atrial fibrillation) I48.0 Coding Level of Care Code Off vis,est,level 3 Diagnoses Coronary artery disease involving [place] coronary artery of [place] heart without angina pectoris I25.10 Coronary Disease-Associated Artery/Lesion type: [place] artery [place] vs. transplanted heart: [place] heart Associated angina: without angina Essential hypertension I10 Hypertension type: essential hypertension PAF (paroxysmal atrial fibrillation) I48.0 05/08/18 1048 <Electronically signed by Gosia MEJIA> Date Gosia MEJIA Cosign Signature: Date (if applicable) CC: Baldemar Brink MD 12 LEAD ELECTROCARDIOGRAM Observed: 05/07/2018 Status: F Source: [place] 9:56 AM [facility] REPOSITORY [facility] Cardiovascular Services [address] [place] [address] 12 Lead EKG 05/04/18 2220 MR#: [id number] Acct: [id number] Name: ARMAAN GUTHRIE Rep #: [id number] : 1955 62 From: Zach Castillo MD Attending Dr: Darline Turcios Status: DIS NIMO Ordering Dr: Buck Cheema DO Date: 05/04/18 Location: [facility] Sex: M C Admitted: 05/04/18 Test Reason : CP Blood Pressure : / mmHG Vent. Rate : 073 BPM Atrial Rate : 073 BPM P-R Int : 182 ms QRS Dur : 104 ms QT Int : 432 ms P-R-T Axes : 038 -09 032 degrees QTc Int : 475 ms Normal sinus rhythm Normal ECG Confirmed by ZACH CASTILLO MD ([id number]), online content editor JANETH DING ([id number]) on 05/07/2018 9:56:29 AM Referred By: KENRICK Confirmed By:ZACH CASTILLO MD 05/07/18 0956 Date Zach Castillo MD CC: Baldemar Brink MD; Darline Turcios; Buck Cheema Signed DISCHARGE SUMMARY Observed: 05/05/2018 Status: F Source: [place] 3:57 PM [facility] REPOSITORY [facility] Medical Records Department [address] [place] [address] Discharge Summary 05/05/18 1402 MR#: [id number] Acct: [id number] Name: ARMAAN GUTHRIE Rep #: [id number] : 1955 62 From: Srini MEJIA PCP: Baldemar Brink MD Status: DIS NIMO Y Location: [place] [address]1 <Srini Laguerre - Last Filed: 05/05/18 14:02> [...] weeks. He is going to try an lgxa-hrw-qbztnmu antacid such as omeprazole or Pepcid. We also discussed his sleep apnea-he admitted that he had not been using his CPAP machine at all. He is going to start trying to use it more. He is discharged home in stable condition. 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 I advised [...] are stable. This note was generated with [employer] dictation software. It may contain incorrect words, spelling, and punctuation that were not noted in checking the note before signing. Disposition: Home Minutes spent on discharge:: 25 Patient Condition:: Stable Meaningful Use Info Meaningful Use Diagnoses (Choose all that apply): None applicable Code Visit OBSV E AND M: 23565 Observation care discharge 05/05/18 1407 <Electronically signed by Srini MEJIA> Date Srini MEJIA 05/05/18 1557<Electronically signed by Darline Turcios MD> Cosigner Signature (if applicable): Date Darline Turcios MD CC: ROBERTO Laguerre; Baldemar Brink MD; Darline Turcios; Zach Castillo MD Signed DISCHARGE INSTRUCTION Observed: 05/05/2018 Status: F Source: [place] 11:41 AM [facility] REPOSITORY [facility] Medical Records Department [address] [place] [address] Instructions for Home/Discharge Instructions 05/05/18 1140 MR#: [id number] Acct: [id number] Name: ARMAAN GUTHRIE Rep #: [id number] : 1955 62 From: Srini MEJIA PCP: [...] STRESS REPORT Observed: 05/05/2018 Status: F Source: [place] 9:[address] [facility] Cardiovascular Services [address] [place] [address] MR#: [id number] Acct: [id number] Name: ARMAAN GUTHRIE Rep #: [id number] : 1955 62 From: Zach Castillo MD [...] 59 %. This note was generated with [employer] software. It may contain incorrect words, spelling, and punctuation that were not noted in checking the note before signing. 05/05/18 0922 <Electronically signed by Zach Castillo MD> Date Zach Castillo MD CC: Baldemar Brink MD; Darline Turcios Date Dictated: 05/05/18914 Date Transcribed: 05/05/18914 Material Coordinator: PM Signed TROPONIN-I Collected: 05/05/2018 Status: F Source: [place] 5:35 AM [facility] REPOSITORY Order Comment: 'TROP' Serial specimen #1, #2 or #3: 3 'TROP' Serial specimen #1, #2, #3, or #4: 3 TYPE CODE TESTS RESULT OUT OF RANGE REFERENCE UNITS LAB L501.4010 <0.045 ng/mL Normal 0.024 TROPONIN-I Result Comment: TROPONIN-I EXPECTED VALUES <0.045 Negative 0.045 - 0.590 Consistent with Cardiac Damage > OR = 0.600 Critical Value Not every elevated troponin is indicative of PA. These values should be used with clinical judgement in examining the patient's clinical picture for diagnosis. To establish a diagnosis of PA versus myocardial injury, there must be a demonstrated rise and/or fall in the troponin values, in addition to ischemic symptoms, EKG changes, new regional wall motion abnormality, and/or angiographical evidence. PLEASE NOTE: REFERENCE RANGES EDITED 18 Performed By: #### L501.4010 #### [facility] [place], [address] CBC-COMPLETE BLOOD CNT Collected: 05/05/2018 Status: F Source: [place] NO DIFF 2:30 AM [facility] REPOSITORY TYPE CODE TESTS RESULT OUT OF [...] 10.5 Performed By: #### L100.0500, L100.0100 #### [facility] [address] [place], [place], [address] CBC W/DIFF, AUTOMATED Collected: 05/05/2018 Status: F Source: [place] 2:30 AM [facility] REPOSITORY TYPE CODE TESTS RESULT OUT OF [...] 1.17 Performed By: #### L100.0500, L100.0100 #### [facility] [address] [place], [address] PROTHROMBIN TIME W/INR Collected: 05/05/2018 Status: F Source: [place] 2:30 AM [facility] REPOSITORY TYPE CODE TESTS RESULT OUT OF RANGE REFERENCE UNITS LAB L300.4150 11.7-14.9 SECONDS High PROTIME 32.9 LAB L300.4200 Normal INR 3.2 Performed By: #### L300.3900, L300.4310 #### [facility] [address] [place], [address] PARTIAL THROMBOPLAST Collected: 05/05/2018 Status: F Source: [place] TIME 2:30 AM [facility] REPOSITORY TYPE CODE TESTS RESULT OUT OF REFERENCE UNITS RANGE LAB L300.4310 24.1-36.2 Seconds High PTT 40.5 Performed By: #### L300.3900, L300.4310 #### [facility] [address] [place], [address] TROPONIN-I Collected: 05/05/2018 Status: F Source: [place] 2:30 AM [facility] REPOSITORY Order Comment: 'TROP' Serial specimen #1, #2 or #3: 2 TYPE CODE TESTS RESULT OUT OF RANGE REFERENCE UNITS LAB L501.4010 <0.045 ng/mL Normal 0.029 TROPONIN-I Result Comment: TROPONIN-I EXPECTED VALUES <0.045 Negative 0.045 - 0.590 Consistent with Cardiac Damage > OR = 0.600 Critical Value Not every elevated troponin is indicative of PA. These values should be used with clinical judgement in examining the patient's clinical picture for diagnosis. To establish a diagnosis of PA versus myocardial injury, there must be a demonstrated rise and/or fall in the troponin values, in addition to ischemic symptoms, EKG changes, new regional wall motion abnormality, and/or angiographical evidence. PLEASE NOTE: REFERENCE RANGES EDITED 18 Performed By: #### L501.4010 #### [facility] [address] [place], [address] COMPREHENSIVE METABOLIC Collected: 05/05/2018 Status: F Source: [place] PROFIL 2:30 AM [facility] REPOSITORY TYPE CODE TESTS RESULT OUT OF [...] 9 Performed By: #### L500.4050, L500.4100 #### [facility] [address] [place], [address] LIPID PROFILE Collected: 05/05/2018 Status: F Source: [place] 2:30 AM [facility] REPOSITORY TYPE CODE TESTS RESULT OUT OF [...] 18 Performed By: #### L500.4050, L500.4100 #### [facility] [address] [place], [address] HISTORY AND PHYSICAL Observed: 05/04/2018 Status: F Source: [place] EXAM 11:59 PM [facility] REPOSITORY [facility] Medical Records Department [address] [place] [address] History and Physical 05/04/18 2350 MR#: [id number] Acct: [id number] Name: ARMAAN GUTHRIE Rep #: [id number] : 1955 62 From: Zach Morillo MD [...] care Code Visit OBSV E AND M: 33990 Initial observation care L2 05/04/18 2889 <Electronically signed by Zach Morillo MD> Date Zach Morillo MD Cosigner Signature: Date (if applicable) CC: Baldmear Brink MD; Zach Morillo MD Signed EMERGENCY DEPARTMENT Observed: 05/04/2018 Status: F Source: [place] SUMMARY 11:42 PM [facility] REPOSITORY [facility] Medical Records Department [address] [facility] [address] Emergency Department Summary 05/04/18 2254 MR#: [id number] Acct: [id number] Name: ARMAAN GUTHRIE Rep #: [id number] : 1955 62 From: Buck Etienne PCP: [...] symptoms in the past. Denies history of PA. Patient followed by Dr. Castillo history of [...] chest pain This note was generated with [employer] dictation software. It may contain incorrect words, spelling, and punctuation that were not noted in review of the chart prior to signing ED Disposition - Plan for ED Patient: Disposition: Acute [facility] Chief Complaint: Chest Pain Diagnosis: Chest pain Referrals: Baldemar Brink MD [Primary Care Provider] - What to do if you have Problems For any increased pain, shortness of breath, bleeding, nausea or vomiting, chest pain, or any unexpected problems, contact your Primary Care Provider. Call [facility] ([phone]) or report to the closest Emergency Room. Call 911 if necessary. 05/04/18 3955 <Electronically signed by Buck Etienne> Date Buck Etienne Cosigner Signature (If Indicated): Date CC: Baldemar Brink MD CHEST 1 VIEW Observed: 05/04/2018 Status: F Source: [place] (PORTABLE) 10:54 PM [facility] REPOSITORY [facility] Imaging Services [address] [place] [address] Chest 1 View (Portable) MR#: [id number] Acct: [id number] Name: ARMAAN GUTHRIE Rep #: [id number] : 1955 M 62 From: Alexis Nelson DO PCP: Baldemar Brink MD Status: REG ER Study: Chest 1 View (Portable) Date of Exam: 05/04/18 Exam# [id number] Ordering Dr: Buck Cheema DO STUDY: X-RAY [...] Alexis Nelson DO at 23:24 EDT Tel [phone], Service support , CC: Baldemar Brink MD; Buck Cheema Material Coordinator: Signed CBC W/DIFF, AUTOMATED Collected: 05/04/2018 Status: F Source: [place] 10:50 PM [facility] REPOSITORY TYPE CODE TESTS RESULT OUT OF [...] Lymph 1.51 Performed By: #### L100.0100 #### [facility] [address] [place], [place], [address] BASIC METABOLIC Collected: 05/04/2018 Status: F Source: [place] PROFILE (BMP) 10:50 PM [facility] REPOSITORY TYPE CODE TESTS RESULT OUT OF [...] 6 Performed By: #### L500.2500, L501.4010 #### [facility] [address] [place], [address] TROPONIN-I Collected: 05/04/2018 Status: F Source: [place] 10:50 PM [facility] REPOSITORY TYPE CODE TESTS RESULT OUT OF RANGE REFERENCE UNITS LAB L501.4010 <0.045 ng/mL Normal < 0.015 TROPONIN-I Result Comment: TROPONIN-I EXPECTED VALUES <0.045 Negative 0.045 - 0.590 Consistent with Cardiac Damage > OR = 0.600 Critical Value Not every elevated troponin is indicative of PA. These values should be used with clinical judgement in examining the patient's clinical picture for diagnosis. To establish a diagnosis of PA versus myocardial injury, there must be a demonstrated rise and/or fall in the troponin values, in addition to ischemic symptoms, EKG changes, new regional wall motion abnormality, and/or angiographical evidence. PLEASE NOTE: REFERENCE RANGES EDITED 18 Performed By: #### L500.2500, L501.4010 #### [facility] [address] [place], [place], [address] BASIC METABOLIC Collected: 04/20/2018 Status: F Source: [place] PROFILE (BMP) 9:04 AM [facility] REPOSITORY TYPE CODE TESTS RESULT OUT OF [...] GAP 8 Performed By: #### L500.2500 #### [facility] [address] [place], [place], [address] PROGRESS Observed: 03/18/2018 Status: COMPLETED Source: [place] 2:27 PM [facility] [place] REPOSITORY HNO ID: [id number] Author: Rachel Herrera Service: (none) Author Type: Physician Program Coordinator Executive Education Type: Progress Notes Filed: 03/18/2018 2:43 PM [...] days as needed if no improvment ABDULAZIZ HERRERA PA-C CNOV Observed: 03/18/2018 Status: COMPLETED Source: [place] 2:20 PM [facility] REPOSITORY Office Visit (FAMPWS) ARMAAN GUTHRIE ([id number]) 1955 M [facility] Date Time Provider Department 03/18/18 2:20 PM [...] comorbidity) [E6*INVALID FOR* Pulmonary hypertension, secondary (HCC) [IWD023*INVALID FOR* Varicose vein of leg [I83.90] INVALID [...] F Source: [place] PROFILE (BMP) 12:21 PM [facility] REPOSITORY TYPE CODE TESTS RESULT OUT OF [...] GAP 6 Performed By: #### L500.2500 #### [facility] [address] [place] [address]. [place], [address] PROGRESS Observed: 12/26/2017 Status: COMPLETED Source: [place] 9:34 AM [facility] REPOSITORY HNO ID: [id number] Author: Martin Garsia Service: (none) Author Type: Physician Program Coordinator Executive Education Type: Progress Notes Filed: 12/26/2017 11:42 AM [...] - Herpes simplex type 2 infection - RINCON (hard of hearing) 09/08/2015 - Inguinal hernia [...] - FLUTICASONE 50 MCG/ACTUATION NASAL SPRAY,SUSPENSION - VVALRJCZ-UXTPJBZNQ-NCXVVRUXD 3.5 MG-10,000 UNIT/ML-1 % EAR DROPS,SUSP 2. Diarrhea, unspecified type - ICD9: 787.91, ICD10: R19.7 F/u with IM, CT scheduled for next week. Schedule for f/u with GI as well. Reviewed red flags and when to seek care sooner. Unity/BRAT diet. - C. DIFFICILE PCR - ENTERIC [...] 12/26/2017 CNOV Observed: 12/26/2017 Status: COMPLETED Source: [place] 9:15 AM [facility] REPOSITORY Office Visit (UCWSTR) ARMAAN GUTHRIE ([id number]) 1955 M [facility] Date Time Provider Department 12/26/17 9:15 AM [...] extremity 04/02/2016 - CHF (congestive heart failure) ([facility]) - Detached retina 12/26/20142001 he had a surgery done. - Diverticulosis of colon (without mention of hemorrhage) Diverticulosis. 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, skull fracture as infant - Hemorrhoids Hemorrhoids - Herpes labialis 11/03/2014 - Herpes simplex type 2 infection - RINCON (hard of hearing) 09/08/2015 - Inguinal hernia - Left ventricular hypertrophy 03/24/2014 Echo 2012 showed left ventricular hyperterophy - Obesity, unspecified - Other anxiety states - Panic disorder without agoraphobia 07/06/2005 - Primary insomnia 11/21/2015 - SCC (squamous cell carcinoma), lip 11/15/2014 - Snoring - SOB (shortness of breath) 04/25/2014 - Social phobia with panic attacks - Stroke ([facility]) - Syphilis - TREMOR NEC 07/06/2005 - [...] - FLUTICASONE 50 MCG/ACTUATION NASAL SPRAY,SUSPENSION - LNDDDFSA-CPMCOGXIF-QKLGMFJOU 3.5 MG-10,000 UNIT/ML-1 % EAR DROPS,SUSP 2. Diarrhea, unspecified type - ICD9: 787.91, ICD10: R19.7 F/u with IM, CT scheduled for next week. Schedule for f/u with GI as well. Reviewed red flags and when to seek care sooner. Unity/BRAT diet. - C. DIFFICILE PCR - ENTERIC [...] Rinse mouth after use.Disp: 1 BottleRfl: 0 pjzxwzyt-puflvchtn-fhyudvylnidfzt (CORTISPORIN) 3.5-10,000-1 mg/mL-unit/mL-% otic suspensionUse 3 Drops in the right ear four times daily for 7 days.Disp: 1 BottleRfl: 0 C. DIFFICILE PCR [SQCDPCR] Order #: [id number] ENTERIC BACTERIAL PANEL BY PCR [SQSTLPCR] Order #: [id number] FUTURE CBC + DIFF [SQCBCDIF] Order #: [id number] FUTURE COMP METABOLIC PANEL [SQCMP] Order #: [id number] FUTURE CONSULT TO GASTROENTEROLOGY [9010] Order #: [id number]: 1 Prescriptions as of 12/26/2017 Sig: ASPIRIN [...] Use 2 Sprays in each nostril * EDLCTLBY-KIIKRZEMM-EDHIGOZQJ * Use 3 Drops in the right [...] comorbidity) [E6*INVALID FOR* Pulmonary hypertension, secondary (HCC) [ZAB528*INVALID FOR* Varicose vein of leg [I83.90] INVALID FOR* More... Prescriptions ordered this encounter Disp Refills Start End FLUTICASONE 50 MCG/ACTUATION NASAL S* 1 Omkar* 0 12/26/2017 Route: EACH NOSTRIL Sig: Use 2 Sprays in each nostril once daily. Rinse mouth after use. KMUKSOXI-ZYRDPAKHV-TMTOOBFXT 3.5 MG-* 1 Omkar* 0 12/26/2017 01/02/2018 Route: RIGHT EAR Sig: Use 3 Drops in the right ear four times daily for 7 days. Encounter Status:Closed by MARTIN GARSIA PA-C on 12/26/17 CNOV Observed: 12/23/2017 Status: COMPLETED Source: [place] 12:20 PM [facility] REPOSITORY Office Visit (INTMWS) ARMAAN GUTHRIE ([id number]) 1955 M [facility] Date Time Provider Department 12/23/17 12:20 PM [...] - Herpes simplex type 2 infection - RINCON (hard of hearing) 09/08/2015 - Inguinal hernia - Left ventricular hypertrophy 03/24/2014 Echo 2012 showed left ventricular hyperterophy - Obesity, unspecified - Other anxiety states - Panic disorder without agoraphobia 07/06/2005 - Primary insomnia 11/21/2015 - SCC (squamous cell carcinoma), lip 11/15/2014 - Snoring - SOB (shortness of breath) 04/25/2014 - Social phobia with panic attacks - Stroke ([facility]) - Syphilis - TREMOR NEC 07/06/2005 - Unspecified hemorrhoids without mention of complication Hemorrhoids PAST SURGICAL HISTORY Procedure Laterality Date - COLONOSCOP W/ OR W/O [facility] SPEC 10/26/13 Repeat 2023 - COLONOSCOP W/ OR W/O [facility] SPEC 08/11/15 Colonoscopy - COLONOSCOPY 11/27/01 [...] 5.6 4.0 - 6.0 % Final Comment: [place] [employer] guidelines indicate that patients with [...] and agreed with the plan. Noman Allen APRN.REVERBERATORY FURNACE SUPERVISOR Referring Provider: SELF [200] Allergies As of [...] abdominal pain [R10.31] Order(s):CT ABD/PEL WO IVCON [5918968] Order #: [id number] FUTURE enteric contrast (radiology procedure)Take 1 Each by mouth one time only for [address] ABD/PEL WO Routine order Administer, As Directed One Time Only, via Oral, Rectal, both Oral and Rectal, Enteric Tube, Stoma or Indwelling Catheter, Enteric Contrast as designated per enteric contrast guidelinesDisp: 1 EachRfl: 0 CONSULT TO GENERAL SURGERY [9011] Order #: [id number]: 1 Prescriptions as of 12/23/2017 Sig: ENTERIC [...] comorbidity) [E6*INVALID FOR* Pulmonary hypertension, secondary (HCC) [NPQ870*INVALID FOR* Varicose vein of leg [I83.90] INVALID [...] 12/23/17 PROGRESS Observed: 12/23/2017 Status: COMPLETED Source: [place] 11:48 AM [facility] [place] REPOSITORY O ID: [id number] Author: Noman Templeton) JUDY Allen Service: (none) [...] - Herpes simplex type 2 infection - RINCON (hard of hearing) 09/08/2015 - Inguinal hernia [...] 5.6 4.0 - 6.0 % Final Comment: [place] [employer] guidelines indicate that patients with HgbA1c in the range 5.7-6.4% are at increased risk for development of diabetes, and intervention by lifestyle modification may be beneficial. HgbA1c greater or equal to 6.5% is considered diagnostic of diabetes. HBA1C, [place] Date Value Ref Range Status 12/04/2010 5.6 [...] and agreed with the plan. Noman Allen APRN.REVERBERATORY FURNACE SUPERVISOR LIVER PROFILE Collected: 12/12/2017 Status: F Source: [place] 8:41 AM [facility] REPOSITORY TYPE CODE TESTS RESULT OUT OF [...] BILI Performed By: #### L500.3400, L500.4100 #### [facility] [address] [place], [place], [address] LIPID PROFILE Collected: 12/12/2017 Status: F Source: [place] 8:41 AM [facility] REPOSITORY TYPE CODE TESTS RESULT OUT OF [...] 16 Performed By: #### L500.3400, L500.4100 #### [facility] [address] [place], [place], [address] THYROID STIM HORMONE Collected: 12/12/2017 Status: F Source: [place] (TSH) 8:38 AM [facility] REPOSITORY TYPE CODE TESTS RESULT OUT OF RANGE REFERENCE UNITS LAB L501.9520 0.358-3.74 uIU/mL Normal TSH 1.26 Performed By: #### L501.9520, L506.0400 #### [facility] [address] [place], [place], [address] T4 FREE DIRECT Collected: 12/12/2017 Status: F Source: [place] 8:38 AM [facility] REPOSITORY TYPE CODE TESTS RESULT OUT OF RANGE REFERENCE UNITS LAB L506.0400 0.76-1.46 ng/dL Normal T4 FREE 1.40 DIRECT Performed By: #### L501.9520, L506.0400 #### [facility] [address] [place], [address] CARDIOLOGY VISIT Observed: 12/11/2017 Status: F Source: [place] REPORT 1:59 PM [facility] REPOSITORY [facility] [address] [place] [address] OFFICE VISIT Date of Service: 12/11/17 MR#: [id number] Acct: [id number] Name: ARMAAN GUTHRIE Rep #: [id number] : 1955 Provider: ALISA Marsh Age/Sex: 62/M Location: [facility] Status: Signed HPI HPI Details: ARMAAN GUTHRIE, [...] brachial Intake Visit Reasons: 3 M FU Cavity Pump Operator Required: No Accompanied by: None Is patient [...] AND Plan 1. Coronary artery disease involving [place] coronary artery of [place] heart without angina pectoris I25.10 ROBERT Talavera [...] vis,est,level 3 Diagnoses Coronary artery disease involving [place] coronary artery of [place] heart without angina pectoris I25.10 Coronary Disease-Associated Artery/Lesion type: [place] artery [place] vs. transplanted heart: [place] heart Associated angina: without angina Paroxysmal atrial [...] vis,est,level 3 Diagnoses Coronary artery disease involving [place] coronary artery of [place] heart without angina pectoris I25.10 Coronary Disease-Associated Artery/Lesion type: [place] artery [place] vs. transplanted heart: [place] heart Associated angina: without angina Paroxysmal atrial [...] Status: F Source: [place] EXTREMITY 8:33 AM [facility] REPOSITORY [facility] Cardiovascular Services [address] [place] [address] Venous Duplex US, Unilateral 11/28/17 1425 MR#: [id number] Acct: [id number] Name: ARMAAN GUTHRIE Rep #: [id number] : 1955 62 From: Frank Valle MD [...] called and/or faxed to Dr. He @ [phone] @ 3:00 pm. Interpretation Summary Deep veins [...] Date Dictated: 11/28/17 1425 Date Transcribed: 11/30/17831 Material Coordinator: Signed OPERATIVE REPORT Observed: 11/26/2017 Status: F Source: [place] 8:05 AM [facility] REPOSITORY [facility] Medical Records Department [address] [place] [address] Operative Report 11/26/17 0759 MR#: [id number] Acct: [id number] Name: ARMAAN GUTHRIE Rep #: [id number] : 1955 62 From: Armaan He MD PCP: Baldemar Brink MD Status: REG [facility] Y Location: [place] [address] Report of Operation Date of Procedure: 11/26/17 Pre-Operative Diagnosis: Right knee medial meniscus tear. Right knee possible lateral meniscus tear. Right knee chondromalacia Post-Operative Diagnosis: Right knee medial meniscus tear. Right knee chondromalac Surgery/Procedure Performed:: 1. Right knee arthroscopic partial medial meniscectomy. 2. Right knee arthroscopic medial compartment chondroplasty Description of Surgical Findings:: See operative report jacquard fixer: None Type of Anesthesia:: General Anesthesiologist: Berto [...] Signed PROGRESS Observed: 11/17/2017 Status: COMPLETED Source: [place] 8:09 AM [facility] REPOSITORY HNO ID: [id number] Author: Nneka Denson Service: (none) Author Type: Nurse Practitioner Type: Progress Notes Filed: 11/17/2017 8:33 AM Note Text: CC: Patient presents with: Recheck: ER follow up, FX Rib HPI Armaan Guthrie is a 62 year old male who presents today for [facility] follow up from 11/11/17. Patient presented with [...] - Herpes simplex type 2 infection - RINCON (hard of hearing) 09/08/2015 - Inguinal hernia [...] Repeat 2023 - COLONOSCOP W/ OR W/O [facility] SPEC 08/11/15 Colonoscopy - COLONOSCOPY 11/27/01 [...] AND PHYSICAL Observed: 11/14/2017 Status: F Source: [place] EXAM 1:01 PM [facility] REPOSITORY [facility] Medical Records Department [address] [place] [address] History and Physical 11/14/17 1252 MR#: [id number] Acct: [id number] Name: ARMAAN GUTHRIE Rep #: [id number] : 1955 62 From: Marcos Rausch PA-C PCP: Baldemar Brink MD Status: PRE [facility] Y Location: [facility] History and Physical DATE OF SERVICE: 11/26/2017 SCHEDULED PROCEDURE: Right knee arthroscopy with partial medial meniscectomy HISTORY OF PRESENT ILLNESS: This is a 62-year-old male who was scheduled to undergo previous right knee arthroscopy in August 2017. Patient was found to be in atrial fibrillation. Patient was referred to red hat linux administrator. Patient underwent echocardiogram as well as cardioversion. [...] recently was changed to Xarelto by the red hat linux administrator. The patient also has been treated for superficial blood clot with Eliquis which was stopped preoperatively. Patient did have a another Doppler ultrasound which did show partial occlusion. Hadoop Engineer did recommend anticoagulation per his primary care [...] Surgical Hx: Hernia Repair - (2012) X2 [facility] Dettached Retina - (2000) [facility] Ear Surgery X2 - LT [facility] Hemmorroid Cardioversion - X2 Anesthesia Complications: None [...] Patient has has obtained surgical clearance from red hat linux administrator. We will be obtaining anticoagulation recommendations per [...] DISCHARGE INSTRUCTION Observed: 11/11/2017 Status: F Source: [place] 2:02 PM [facility] REPOSITORY [facility] Medical Records Department [address] [place] [address] [place] [address] Discharge Instruction 11/11/17 1401 MR#: [id number] Acct: [id number] Name: ARMAAN GUTHRIE Rep #: [id number] : 1955 62 From: Aleida Decker DO [...] your Primary Care Provider. Call [facility] ([phone]) or report to the closest Emergency Room. Call 911 if necessary. 11/11/17 1402 <Electronically signed by Aleida Decker DO> Date Aleida Decker DO Cosigner Signature (If Indicated): Date CC: Baldemar Brink MD EMERGENCY DEPARTMENT Observed: 11/11/2017 Status: F Source: [place] SUMMARY 2:01 PM [facility] REPOSITORY [facility] Medical Records Department [address] [place] [address] Emergency Department Summary 11/11/17 1358 MR#: [id number] Acct: [id number] Name: ARMAAN GUTHRIE Rep #: [id number] : 1955 62 From: Aleida Decker DO [...] eighth ribs] This note was generated with [employer] software. It may contain incorrect words, spelling, [...] your Primary Care Provider. Call [facility] ([phone]) or report to the closest Emergency Room. Call 911 if necessary. 11/11/17 1401 <Electronically signed by Aleida Decker DO> Date Aleida Decker DO Cosigner Signature (If Indicated): Date CC: Baldemar Brink MD RIBS UNI MIN 3V Observed: 11/11/2017 Status: F Source: [place] W/PA CHEST 12:47 PM [facility] REPOSITORY [facility] Imaging Services [address] [place] [address] Ribs Uni Min 3V w/PA Chest MR#: [id number] Acct: [id number] Name: ARMAAN GUTHRIE Rep #: [id number] : 1955 M 62 From: Duke Duran MD PCP: Baldemar Brink MD Status: REG ER Study: Ribs Uni Min 3V w/PA Chest Date of Exam: 11/11/17 Exam# [id number] Ordering Dr: Aleida Decker DO STUDY: X-RAY [...] Duke Duran MD at 13:30 EST Tel [phone], Service support , CC: Baldemar Brink MD; Aleida Decker DO Material Coordinator: Signed VENOUS DUPLEX LOWER Observed: 11/04/2017 Status: F Source: [place] EXTREMITY 2:10 PM [facility] REPOSITORY [facility] Cardiovascular Services [address] [place] [address] Venous Duplex US, Unilateral 10/31/17 1258 MR#: [id number] Acct: [id number] Name: ARMAAN GUTHRIE Rep #: [id number] : 1955 62 From: Frank Valle MD [...] Dictated: 10/31/17 1258 Date Transcribed: 11/04/17 1409 Material Coordinator: Signed PROGRESS Observed: 11/04/2017 Status: COMPLETED Source: [place] 11:19 AM [facility] REPOSITORY [facility] ID: [id number] Author: Cindy Richardson (Pa) Service: (none) Author Type: Physician Program Coordinator Executive Education Type: Progress Notes Filed: 11/04/2017 4:01 PM Note Text: [facility] PATIENT INFO: Armaan Guthrie 62 year old [...] - Herpes simplex type 2 infection - RINCON (hard of hearing) 09/08/2015 - Inguinal hernia [...] or problems. No history of angina, CHF, PA, cardiac surgery of stents. Respiratory: Negative for [...] problems. Neurologic: No history of TIA's, stroke, REVERBERATORY FURNACE SUPERVISOR tumor, impaired sensorium, hemiplegia, paraplegia or quadriplegia. [...] PAVanessa GROSS Observed: 11/04/2017 Status: COMPLETED Source: [place] 11:00 AM [facility] REPOSITORY Office Visit (UROLWS) ARMAAN GUTHRIE ([id number]) 1955 M [facility] Date Time Provider Department 11/04/17 11:00 AM CINDY RICHARDSON) UROLWS During your visit today, we recorded the following information about you: Blood pressure Weight Height 120/80 129 kg 1.829 m ROBERTO Lowe 11/04/2017 4:01 PM Signed [facility] PATIENT INFO: Armaan Guthrie 62 year old [...] - Herpes simplex type 2 infection - RINCON (hard of hearing) 09/08/2015 - Inguinal hernia [...] or problems. No history of angina, CHF, PA, cardiac surgery of stents. Respiratory: Negative for [...] problems. Neurologic: No history of TIA's, stroke, REVERBERATORY FURNACE SUPERVISOR tumor, impaired sensorium, hemiplegia, paraplegia or quadriplegia. [...] Diagnosis:Urinary frequency [R35.0] Order(s):UA DIP, URINE (POC) [3026401] Order #: [id number]. #:[id number] oxybutynin (DITROPAN) 5 mg tabletTake 1 tablet [...] comorbidity) [E6*INVALID FOR* Pulmonary hypertension, secondary (HCC) [VCH949*INVALID FOR* Varicose vein of leg [I83.90] INVALID [...] SEVERITY SOURCE 10/13/2018 Drug hydrocodone Rash Unknown [place] Allergy/416 bitartrate/P697131 [place] [address]([place] [address]([facility] ED CT) Repository 10/13/2018 Drug cefuroxime Rash Unknown [place] Allergy/416 axetil/[id number]( [place] [address] ED [facility]) Repository 10/13/2018 Drug Penicillins/V79971 Hives Unknown [place] Allergy/416 0476(RXNORM) [place] 332292([facility] ED CT) Repository 10/13/2018 Drug lisinopril/X312720 Other Unknown [place] Allergy/416 658(RXNORM) [place] [address]292([facility] ED CT) Repository 10/13/2018 Drug carvedilol/B700667 Other Unknown [place] Allergy/416 167(RXNORM) [place] [address]([facility] ED CT) Repository 11/02/2013 DRUG LISINOPRIL COUGH [facility] INGREDI/[address] [place] 541438(SNOM Repository ED CT) 07/01/2005 DRUG CEFUROXIME RASH [facility] INGREDI/[address] [place] 855416(SNOM Repository ED CT) 07/01/2005 Drug PENICILLINS HIVES [facility] Class/93564 [address] [place] 1003(SNOMED Repository CT) 07/01/2005 DRUG/220976 HYDROCODONE-ACETAM RASH [facility] 003(SNOMED INOPHEN [place] CT) Repository ENCOUNTERS ENCOUNTERS ADMIT/DISCHARGE ACCOUNT NUMBER ADMITTING ENCOUNTER LOCATION SOURCE CLASS 10/21/2018/10/21/19 [id number] Ambulatory [address] [place] Repository 10/21/2018/10/22/19 [id number] Ambulatory [address] Repository 10/13/2018/10/13/19 [id number] Ambulatory BMSBuilding: [place] 19 BMS.[facility] Repository 10/01/2018/10/01/20 [id number] Ambulatory [address] [place] Repository 10/01/2018/10/01/20 [id number] Ambulatory [address] Repository 10/01/2018/10/04/20 [id number] Ambulatory [address] Repository 09/24/2018 [id number] Ambulatory BMSBuilding: [facility] Repository 09/22/2018 [id number] Ambulatory [facility] ding:PSN Repository 09/19/2018/09/19/20 [id number] Emergency [address] ding:ED Repository 09/17/2018 [id number] Ambulatory [facility] ding:LAB Repository 09/08/2018/09/08/20 [id number] Ambulatory BMSBuilding: [place] 18 BMS.[facility] Repository 08/20/2018 [id number] Ambulatory [facility] ding:LAB Repository 08/16/2018 [id number] Ambulatory BMSBuilding: [facility] Repository 08/14/2018 [id number] Ambulatory [facility] ding:CVS Repository 08/14/2018 [id number] Ambulatory BMSBuilding: [place] [facility] Repository 08/13/2018/08/13/20 [id number] Emergency [address] ding:ED Repository 07/31/2018 [id number] Ambulatory [facility] ding:LAB Repository 07/31/2018/07/31/20 [id number] Ambulatory BMSBuilding: [place] 18 BMS.[facility] Repository 07/21/2018 [id number] Ambulatory [facility] Repository 07/08/2018/07/10/20 [id number] Ambulatory [address] Repository 06/02/2018 [id number] Ambulatory [facility] ding:RAD Repository 05/08/2018/05/08/20 [id number] Ambulatory BMSBuilding: [place] 18 BMS.[facility] Repository 05/07/2018 [id number] Ambulatory BMSBuilding: [place] BMS.[facility] Repository 05/05/2018/05/05/20 [id number] Ambulatory BMSBuilding: [place] [facility] Repository 05/05/2018/05/05/20 [id number] Ambulatory BMSBuilding: [place] [facility] Repository 05/04/2018 [id number] Ilia Ambulatory BMSBuilding: [place] BMS.[facility] Repository 05/04/2018/05/05/20 [id number] Il[place] Ambulatory [address] ding:PCURoom Repository : KEQ075Icq: 1 05/04/2018 [id number] Ambulatory BMSBuilding: [place] BMS.[facility] Repository 04/20/2018 [id number] Ambulatory [facility] ding:LAB Repository 03/18/2018/03/20/20 [id number] Ambulatory [address] Repository 02/03/2018 [id number] Ambulatory [facility] ding:LAB Repository 12/26/2017/12/30/19 [id number] Ambulatory [address] Repository 12/23/2017/12/24/19 [id number] Ambulatory [address] Repository 12/12/2017 [id number] Ambulatory [facility] ding:LAB Repository 12/11/2017/12/12/19 [id number] Ambulatory BMSBuilding: [place] 18 BMS.[facility] Repository 12/02/2017 [id number] Ambulatory BMSBuilding: [place] BMS.[facility] Repository 12/02/2017 [id number] Ambulatory BMSBuilding: [place] BMS.[facility] Repository 11/28/2017 [id number] Ambulatory [facility] ding:CVS Repository 11/26/2017/11/26/19 [id number] Ambulatory [address] ding:SDC Repository 11/17/2017/11/17/19 [id number] Ambulatory [address] Repository 11/11/2017/11/11/19 [id number] Emergency [place] ding:ED Repository 11/06/2017 [id number] Ambulatory [facility] ding:PSN Repository 11/04/2017/11/13/19 [id number] Ambulatory [address] Repository 10/31/2017 [id number] Ambulatory [facility] ding:CVS Repository PAYERS PAYERS ENCOUNTER GUARANTOR PAYER SUBSCRIBER SOURCE 10/13/2018 ARMAAN Rose Primary ARMAAN [place] [id number] Insurance:LUCERO DONOVAN: [facility] [id number] PLANPolicy Number: Repository 20312Rqu: (565) [id number] [phone] () Date:9910-61-46NO[address] [address]RA: 10/13/2018 Secondary NOT GIVENUNK [place] Insurance:SELF PAY [facility] Number: Effective Repository Date:2018-10-09 09/24/2018 ARMAAN Rose Primary ARMAAN [place] [id number] Insurance:LUCERO CHRISTIAN: [facility] [id number] PLANPolicy Number: Repository 05683Uoz: 330 [id number] [phone] (HP) Date:8675-22-28SC [address] [place] [address] 36518KR: 09/24/2018 Secondary NOT GIVENUNK [place] Insurance:SELF PAY [facility] Number: Effective Repository Date:2018-09-24 09/22/2018 ARMAAN E Primary ARMAAN Rose [place] [id number] Insurance:LUCERO CHRISTIANB: [facility] [id number] Hospital BerryvillePolicy Number: Repository 74431Gum: 330 [id number] [phone] () Date:2718-52-63VW [address] [place] [address] 82953WM: 09/22/2018 Secondary NOT GIVENUNK [place] Insurance:SELF PAY [facility] Number: Effective Repository Date:2018-09-08 09/19/2018 ARMAAN E Primary ARMAAN Rose [place] [id number] Insurance:LUCERO CHRISTIANB: [facility] [id number] Hospital BerryvillePolicy Number: Repository 87671Dbc: 330 [id number] [phone] () Date:7913-15-60LQ [address] [place] [address] 51903CO: 09/19/2018 Secondary NOT GIVENUNK [place] Insurance:SELF PAY [facility] Number: Effective Repository Date:2018-09-19 09/17/2018 ARMAAN E Primary ARMAAN Rose [place] [id number] Insurance:LUCERO CHRISTIANB: [facility] [id number] Hospital BerryvillePolicy Number: Repository 99362Sar: 330 [id number] [phone] () Date:2024-16-79BH [address] [place] [address] 80179GV: 09/17/2018 Secondary NOT GIVENUNK [place] Insurance:SELF PAY [facility] Number: Effective Repository Date:2018-09-17 09/08/2018 ARMAAN Rose Primary ARMAAN Rose [place] [id number] Insurance:LUCERO DONOVAN: [place] [id number] Number: Repository [id number]: 330 [id number] [phone] () Date:8015-94-03OS [address] [place] [address] 70504KR: 09/08/2018 Secondary NOT GIVENUNK [place] Insurance:SELF PAY [facility] Number: Effective Repository Date:2018-09-07 08/20/2018 ARMAAN Rose Primary ARMAAN Rose [place] [id number] Insurance:LUCERO DONOVAN: [facility] [id number] Medical Center Number: Repository [id number]: 330 [id number] [phone] (HP) Date:1481-10-08TJ [address] [place] [address] 10861AL: 08/20/2018 Secondary NOT GIVENUNK [place] Insurance:SELF PAY [facility] Number: Effective Repository Date:2018-08-20 08/16/2018 ARMAAN Rose Primary ARMAAN Rose [place] [id number] Insurance:LUCERO DONOVAN: [address]10-30[facility] Number: Repository 19372Dmv: 330 [id number] [phone] (HP) Date:8390-02-51HG [address] [place] [address] 45863JF: 08/16/2018 Secondary NOT GIVENUNK [place] Insurance:SELF PAY [facility] Number: Effective Repository Date:2018-08-16 08/14/2018 ARMAAN Rose Primary ARMAAN Rose [place] [id number] Insurance:LUCERO DONOVAN: [address]10-30[facility] Number: Repository [id number]: 330 [id number] [phone] (HP) Date:5122-28-89UZ [address] [place] [address] 03743RE: 08/14/2018 Secondary NOT GIVENUNK [place] Insurance:SELF PAY [facility] Number: Effective Repository Date:2018-07-31 08/14/2018 ARMAAN Rose Primary ARMAAN Rose [place] [id number] Insurance:LUCERO CHRISTIANB: [facility] [id number] Medical Center Number: Repository 22575Gdl: 330 [id number] [phone] () Date:8383-01-43WG [address] [place] [address] 86464TH: 08/14/2018 Secondary NOT GIVENUNK [place] Insurance:SELF PAY [facility] Number: Effective Repository Date:2018-08-14 08/13/2018 ARMAAN Rose Primary ARMAAN Rose [place] [id number] Insurance:LUCERO CHRISTIANB: [facility] [id number] Medical Center Number: Repository 34700Alh: 330 [id number] [phone] () Date:1137-52-61NT [address] [place] [address] 00481TG: 08/13/2018 Secondary NOT GIVENUNK [place] Insurance:SELF PAY [facility] Number: Effective Repository Date:2018-08-13 07/31/2018 ARMAAN Rose Primary ARMAAN Rose [place] [id number] Insurance:ULCERO CHRISTIANB: [facility] [id number] Medical Center Number: Repository 74564Bjc: 330 [id number] [phone] () Date:7133-75-98UW [address] [place] [address] 92059IK: 07/31/2018 Secondary NOT GIVENUNK [place] Insurance:SELF PAY [facility] Number: Effective Repository Date:2018-07-31 07/31/2018 ARMAAN E Primary ARMAAN [place] [id number] Insurance:LUCERO CHRISTIANB: [facility] [id number] PLANPolicy Number: Repository 53188Ruf: 330 [id number] [phone] (HP) Date:6300-33-38BD [address] [place] [address] 42490WT: 07/31/2018 Secondary NOT GIVENUNK [place] Insurance:SELF PAY [facility] Number: Effective Repository Date:2018-07-28 07/21/2018 [facility]Bette ChristianB: [facility] Number: Effective [id number] Repository [facility] Date: [place], [place] [address]Nke: () 06/02/2018 ARMAAN E Primary ARMAAN Rose [place] [id number] Insurance:LUCERO CHRISTIANB: [facility] [id number] PLANPolicy Number: Repository 79174Bui: 330 [id number] [phone] (HP) Date:1432-72-96PF [address] [place] [address] 41776NT: 06/02/2018 Secondary NOT GIVENUNK [place] Insurance:SELF PAY [facility] Number: Effective Repository Date:2018-05-29 05/08/2018 ARMAAN E Primary ARMAAN Rose [place] [id number] Insurance:LUCERO GUTHRIEDOB: [facility] [id number] Hospital BerryvillePolicy Number: Repository 648[address]Vcj: 330 [id number] [phone] (HP) Date:3876-30-05KK [address] [place] [address] 34338RP: 05/08/2018 Secondary NOT GIVENUNK [place] Insurance:SELF PAY [facility] Number: Effective Repository Date:2018-05-08 05/07/2018 ARMAAN E Primary ARMAAN Rose [place] [id number] Insurance:LUCERO DONOVAN: [facility] [id number] Medical Center Number: Repository 19123Ksi: 330 [id number] [phone] (HP) Date:1476-18-91ZB [address] [place] [address] 86081JP: 05/07/2018 Secondary NOT GIVENUNK [place] Insurance:SELF PAY [facility] Number: Effective Repository Date:2018-05-07 05/05/2018 ARMAAN Rose Primary ARMAAN Rose [place] [id number] Insurance:LUCERO CHRISTIANB: [address]10-30[facility] Number: Repository 64359Biv: 330 [id number] [phone] (HP) Date:1659-62-28XQ [address] [place] [address] 64803QS: 05/05/2018 Secondary NOT GIVENUNK [place] Insurance:SELF PAY [facility] Number: Effective Repository Date:2018-05-05 05/05/2018 ARMAAN Rose Primary ARMAAN Rose [place] [id number] Insurance:LUCERO CHRISTIANB: [address]10-30[facility] Number: Repository 24932Gtw: 330 [id number] [phone] (HP) Date:1324-65-60CM [address] [place] [address] 31674JR: 05/05/2018 Secondary NOT GIVENUNK [place] Insurance:SELF PAY [facility] Number: Effective Repository Date:2018-05-05 05/04/2018 ARMAAN Rose Primary ARMAAN Rose [place] [id number] Insurance:LUCERO DONOVAN: [place] [id number] Number: Repository [id number]: 330 [id number] [phone] (HP) Date:7199-21-05ZG [address] [place] [address] 28384BN: 05/04/2018 Secondary NOT GIVENUNK [place] Insurance:SELF PAY [facility] Number: Effective Repository Date:2018-05-04 05/04/2018 ARMAAN Rose Primary ARMAAN Rose [place] [id number] Insurance:LUCERO DONOVAN: [facility] [id number] Medical Center Number: Repository 51565Qjs: 330 [id number] [phone] () Date:2603-49-87QK [address] [place] [address] 40062NY: 05/04/2018 Secondary NOT GIVENUNK [place] Insurance:SELF PAY [facility] Number: Effective Repository Date:2018-05-04 05/04/2018 ARMAAN Rose Primary ARMAAN Rose [place] [id number] Insurance:LUCERO CHRISTIANB: [facility] [id number] Medical Center Number: Repository 28032Ihf: 330 [id number] [phone] () Date:9068-65-36HU [address] [place] [address] 85308NO: 05/04/2018 Secondary NOT GIVENUNK [place] Insurance:SELF PAY [facility] Number: Effective Repository Date:2018-05-04 04/20/2018 ARMAAN Rose Primary ARMAAN [place] [id number] Insurance:LUCERO CHRISTIANB: [facility] [id number] Medical Center Number: Repository 53130Ntu: 330 [id number] [phone] () Date:2782-25-37HW [address] [place] [address] 51198RJ: 04/20/2018 Secondary NOT GIVENUNK [place] Insurance:SELF PAY [facility] Number: Effective Repository Date:2018-04-20 02/03/2018 ARMAAN Rose Primary ARMAAN E [place] [id number] Insurance:LUCERO CHRISTIANB: [facility] [id number] Hospital BerryvillePolicy Number: Repository 32876Gif: [id number] [phone] Date:7481-17-94NW [address] (HP) [address] [place] [address] 54687YM: 02/03/2018 Secondary NOT GIVENUNK [place] Insurance:SELF PAY [facility] Number: Effective Repository Date:2018-02-03 12/12/2017 ARMAAN E Primary ARMAAN Rose [place] [id number] Insurance:LUCERO CHRISTIANB: [facility] [id number] Hospital BerryvillePolicy Number: Repository 86373Oyr: [id number] [phone] Date:4580-15-07SI [address] (HP) [address] [place] [address] 48210UC: 12/12/2017 Secondary NOT GIVENUNK [place] Insurance:SELF PAY [facility] Number: Effective Repository Date:2017-12-12 12/11/2017 ARMAAN E Primary ARMAAN Rose [place] [id number] Insurance:LUCERO CHRISTIANB: [facility] [id number] Medical Center Number: Repository 64503Fmp: [id number] [phone] Date:5057-68-45KW [address] (HP) [address] [place] [address] 65992QB: 12/11/2017 Secondary NOT GIVENUNK [place] Insurance:SELF PAY [facility] Number: Effective Repository Date:2017-09-12 12/02/2017 ARMAAN E Primary ARMAAN Rose [place] [id number] Insurance:LUCERO CHRISTIANB: [facility] [id number] Medical Center Number: Repository 79795Whn: [id number] [phone] Date:7091-54-71AM [address] (HP) [address] [place] [address] 57053DV: 12/02/2017 Secondary NOT GIVENUNK [place] Insurance:SELF PAY [facility] Number: Effective Repository Date:2017-11-03 12/02/2017 ARMAAN Rose Primary ARMAAN Rose [place] [id number] Insurance:LUCERO DONOVAN: [facility] [id number] Medical Center Number: Repository 35481Pmp: 330 [id number] [phone] (HP) Date:3502-35-01AF [address] [place] [address] 62604QO: 12/02/2017 Secondary NOT GIVENUNK [place] Insurance:SELF PAY [facility] Number: Effective Repository Date:2017-10-17 11/28/2017 ARMAAN Rose Primary ARMAAN Rose [place] [id number] Insurance:LUCERO CHRISTIAN: [facility] [id number] Medical Center Number: Repository 13955Tkn: [id number] [phone] Date:7986-90-16GD [address] (HP) [address] [place] [address] 23134RP: 11/28/2017 Secondary NOT GIVENUNK [place] Insurance:SELF PAY [facility] Number: Effective Repository Date:2017-11-28 11/26/2017 ARMAAN Rose Primary ARMAAN Rose [place] [id number] Insurance:LUCERO DONOVAN: [facility] [id number] Medical Center Number: Repository 87663Biu: [id number] [phone] Date:5334-42-61AA [address] (HP) [address] [address]JF: 11/26/2017 Secondary NOT GIVENUNK [place] Insurance:SELF PAY [facility] Number: Effective Repository Date:2017-11-05 11/11/2017 ARMAAN Rose Primary ARMAAN [place] [id number] Insurance:LUCERO CHRISTIANB: [facility] [id number] Medical Center Number: Repository 62560Cxj: [id number] [phone] Date:2480-63-22UP [address] (HP) [address] [place] [address] [place] 98497YN: 11/11/2017 Secondary NOT GIVENUNK [place] Insurance:SELF PAY [facility] Number: Effective Repository Date:2017-11-11 11/06/2017 ARMAAN E Primary ARMAAN [place] [id number] Insurance:LUCERO CHRISTIANB: [facility] [id number] Hospital BerryvillePolicy Number: Repository 21203Ltz: 330 [id number] [phone] (HP) Date:0073-07-05UM [address] [place] [address] 39810KR: 11/06/2017 Secondary NOT GIVENUNK [place] Insurance:SELF PAY [facility] Number: Effective Repository Date:2017-10-17 10/31/2017 ARMAAN Rose Primary ARMAAN [place] [id number] Insurance:LUCERO DONOVAN: [facility] [id number] Medical Center Number: Repository 67117Oiq: 330 [id number] [phone] (HP) Date:3702-67-49AZ [address] [place] [address] 13155KU: 10/31/2017 Secondary NOT GIVENUNK [place] Insurance:SELF PAY [facility] Number: Effective Repository Date:2017-10-27
== END 2018-09-19 11:00 | disposition home or self-care (01) ==
LOC: ED 09:54
PROVIDERS: Emergency Provider Emergency Medicine; Family Provider Internal Medicine; PCP Internal Medicine
DX: I11.0 Hypertensive heart disease with heart failure (principal); I50.9 Heart failure, unspecified; I48.91 Unspecified atrial fibrillation; G47.33 Obstructive sleep apnea (adult) (pediatric); Z86.718 Personal history of other venous thrombosis and embolism; Z79.02 Long term (current) use of antithrombotics/antiplatelets; Z79.82 Long term (current) use of aspirin; Z79.899 Other long term (current) drug therapy
CPT/HCPCS: 71045; 80048; 83880; 84484; 85025; 93005; 99284; A4216

== ENCOUNTER → 2018-09-22 08:15 | Outpatient (CLI) | payer MEDICAID, SELFPAY ==
[2018-09-08 06:36] VITALS: BMI 40.1
[2018-09-19 09:11] VITALS: BMI 40.7
[2018-09-22 08:30] VITALS: PULSE 65; PULSE 70; PULSE 73; PULSE 74; PULSE 78; PULSE 81; PULSE 82; PULSE 83; O2SAT 90; O2SAT 91; O2SAT 92; O2SAT 93; O2SAT 94; O2SAT 95
--- NOTE | 2018-09-24 15:01 | PCM.PSN.6M ---
PSN 6 Minute Walk Test - 6 Minute Walk Test 6 Minute Walk Test: 6 Minute Walk Test PSN:6-Minute Walk Test Start: 09/22/18 08:39 Freq: Status: Active Protocol: RESP.6MINW Document 09/22/18 08:30 HG (Rec: 09/22/18 08:41 HG [id number]) 6 Minute Walk Test Date Performed 09/22/18 Time Performed 08:30 Height 6 ft Weight: 306 lb Weight in Pounds 306.[address]: Carlo Heredia Assistive device used: None Pre-test Oxygen Delivery Method Room Air Pulse Ox (%) 93 Pulse Rate (60-100 beats/min) 65 Dyspnea Oni Scale (0-10) 2 Exertion Oni Scale (6-20) 8 1st minute Oxygen Delivery Method Room Air Pulse Ox (%) 95 Pulse Rate (60-100 beats/min) 73 2nd minute Oxygen Delivery Method Room Air Pulse Ox (%) 93 Pulse Rate (60-100 beats/min) 83 3rd minute Oxygen Delivery Method Room Air Pulse Ox (%) 92 Pulse Rate (60-100 beats/min) 78 4th minute Oxygen Delivery Method Room Air Pulse Ox (%) 92 Pulse Rate (60-100 beats/min) 81 5th minute Oxygen Delivery Method Room Air Pulse Ox (%) 91 Pulse Rate (60-100 beats/min) 82 6th minute Oxygen Delivery Method Room Air Pulse Ox (%) 90 Pulse Rate (60-100 beats/min) 74 Post-test Oxygen Delivery Method Room Air Pulse Ox (%) 94 Pulse Rate (60-100 beats/min) 70 Dyspnea Oni Scale (0-10) 3 Exertion Oni Scale (6-20) 13 Full Laps Walked 18 Partial Lap, Number of Tiles Walked 0 Total Distance Walked (ft) 1062 - Interpretation Interpretation: The patient ambulated 1062 feet over the course of 6 minutes beginning on room air without assistive devices or breaks. Pretesting oxygen saturation was noted to be 93% on room air. With ambulation, the vaishali oxygen saturation was 90%. There was no significant exertional oxygen desaturation. - Recommendations Recommendations: There is no indication for the use of supplemental oxygen at this time.
--- OUTSIDE RECORDS SUMMARY | 2018-12-24 13:06 | XMS RPT_ITS ---
:1955 Author Organization OHIP Support Name Relationship Address Phone DEVAUGHN GUTHRIE Unavailable [address] + [place] [address] UE Unavailable Unavailable Unavailable DEVAUGHN GUTHRIE Unavailable [address] + [place] [address] UE Unavailable Unavailable Unavailable DEVAUGHN GUTHRIE Unavailable [address] + [place] [address] UE Unavailable Unavailable Unavailable DEVAUGHN GUTHRIE Unavailable [address] + [place] [address] UE Unavailable Unavailable Unavailable DEVAUGHN GUTHRIE Unavailable [address] + [place] [address] UE Unavailable Unavailable Unavailable DEVAUGHN GUTHRIE Unavailable [address] + [place] [address] UE Unavailable Unavailable Unavailable DEVAUGHN GUTHRIE Unavailable [address] + [place] [address] UE Unavailable Unavailable Unavailable DEVAUGHN GUTHRIE Unavailable [address] + [place] [address] UE Unavailable Unavailable Unavailable DEVAUGHN GUTHRIE Unavailable [address] + [place] [address] UE Unavailable Unavailable Unavailable DEVAUGHN GUTHRIE Unavailable [address] + [place] [address] UE Unavailable Unavailable Unavailable DEVAUGHN GUTHRIE Unavailable [address] + [place] [address] UE Unavailable Unavailable Unavailable DEVAUGHN GUTHRIE Unavailable [address] + [place] [address] UE Unavailable Unavailable Unavailable DEVAUGHN GUTHRIE Unavailable [address] + [place] [address] UE Unavailable Unavailable Unavailable Devaughn Guthrie Unavailable Unavailable + DEVAUGHN GUTHRIE Unavailable [address] + [place] [address] UE Unavailable Unavailable Unavailable GENEVA GUTHRIEA Unavailable [address] + [place] [address] UE Unavailable Unavailable Unavailable CLEVELAND KARUK Unavailable [address] + [place] [address] UE Unavailable Unavailable Unavailable CLEVELAND KARUK Unavailable [address] + [place] [address] UE Unavailable Unavailable Unavailable CLEVELAND KARUK Unavailable [address] + [place] [address] UE Unavailable Unavailable Unavailable DEVAUGHN GUTHRIE Unavailable [address] + [place] [address] UE Unavailable Unavailable Unavailable DEVAUGHN GUTHRIE Unavailable [address] + [place] [address] UE Unavailable Unavailable Unavailable DEVAUGHN GUTHRIE Unavailable [address] + [place] [address] UE Unavailable Unavailable Unavailable DEVAUGHN GUTHRIE Unavailable [address] + [place] [address] UE Unavailable Unavailable Unavailable DEVAUGHN GUTHRIE Unavailable [address] [phone] [place] [address] UE Unavailable Unavailable Unavailable DEVAUGHN GUTHRIE Unavailable [address] [phone] [place] [address] UE Unavailable Unavailable Unavailable DEVAUGHN GUTHRIE Unavailable [address] [phone] [place] [address] UE Unavailable Unavailable Unavailable GENEVA GUTHRIEA Unavailable . + ., [place] . UE Unavailable Unavailable Unavailable DEVAUGHN GUTHRIE Unavailable [address] [phone] [place] [address] UE Unavailable Unavailable Unavailable GUTHRIE KARUK Unavailable [address] [phone] [place] [address] UE Unavailable Unavailable Unavailable GUTHRIE KARUK Unavailable [address] [phone] [place] [address] UE Unavailable Unavailable Unavailable GUTHRIE KARUK Unavailable [address] [phone] [place] [address] UE Unavailable Unavailable Unavailable GUTHRIE KARUK Unavailable . + ., [place] . UE Unavailable Unavailable Unavailable GUTHRIE KARUK Unavailable . + ., [place] . UE Unavailable Unavailable Unavailable Care Team Providers Name Role Phone MAURIZIO MORTENSEN Referring Unavailable NNEKA DENSON ([facility]) Referring Unavailable NNEKA DENSON ([employer]) Referring Unavailable NNEKA DENSON ([employer]PER[employer]) Attending Unavailable GANTA, BALDEMAR Referring Unavailable NNEKA DENSON ([employer]) Attending Unavailable ABDULAZIZ HERRERA (PA) Attending Unavailable NOMAN ALLEN ([facility]) Attending Unavailable CINDY RICHARDSON (PA) Attending Unavailable MAURIZIO MORTENSEN Attending Unavailable NNEKA DENSON ([employer]) Attending Unavailable UNGUR, REMUS A Referring Unavailable Rosita Swain . Attending Unavailable PROVIDER, UNKNOWN Referring Unavailable UNKNOWN, PROVIDER Primary Care Unavailable Carlo Heredia Attending Unavailable Carlo Heredia Referring Unavailable Ganta, Baldemar Primary Care Unavailable Zach Castillo Attending Unavailable Jonathan Zach Referring Unavailable Ganta, Baldemar Primary Care Unavailable Ganta, Baldemar Primary Care Unavailable Stevie Alberts Attending Unavailable Kieran Diop D.O. Attending Unavailable Carlo Heredia Referring Unavailable Aundrea Mora Attending Unavailable Ganta, [place] Referring Unavailable Zach Castillo Attending Unavailable Jonathan Zach Referring Unavailable Ganta, Baldemar Primary Care Unavailable Kieran Diop D.O. Attending Unavailable Kieran [...] STATUS SOURCE 10/21/2018 Active Primary NA Active [facility] osteoarthritis, Clinic Main unspecified ankle and [place] foot / Repository M19.079(ICD-10) 10/13/2018 Unknown G47.33 - Obstructive Mora, Active [place] sleep apnea (adult) [facility] (pediatric) / Hospital G47.33(ICD-10) Repository 10/01/2018 Active Shortness of breath / NA Active [facility] R06.02(ICD-10) Clinic Main [place] Repository 10/01/2018 Active Encounter for NA Active [facility] therapeutic drug [facility] Main level monitoring / [place] Z51.81(ICD-10) Repository 10/01/2018 Active Other general NA Active [facility] symptoms and signs / Clinic Main R68.89(ICD-10) [place] Repository 10/01/2018 Active Pain in right foot / NA Active [facility] M79.671(ICD-10) Clinic Main [place] Repository 10/08/2018 Unknown R06.02 - Shortness of Kieran Diop, Active [facility] breath / [facility] R06.02(ICD-10) Hospital Repository 09/22/2018 Unknown I42.8 - Other YanCarlo baldwin Active [facility] cardiomyopathies / Community I42.8(ICD-10) Hospital Repository 09/22/2018 Unknown R06.00 - Dyspnea, YanCarlo baldwin Active [facility] unspecified / Community R06.00(ICD-10) Hospital Repository 09/22/2018 Unknown R06.01 - Orthopnea / YanCarlo baldwin Active [facility] R06.01(ICD-10) [facility] Hospital Repository 08/24/2018 Unknown I48.91 - Unspecified Kieran Diop, Active [facility] atrial fibrillation / [facility] I48.91(ICD-10) Hospital Repository 09/03/2018 Unknown Z79.899 - Other long [place], Active [facility] term (current) drug [facility] therapy / Hospital Z79.899(ICD-10) Repository 07/31/2018 Unknown Z86.79 - Personal [place], Active [place] history of other [facility] diseases of the Hospital circulatory system / Repository Z86.79(ICD-10) 07/21/2018 Admitting Encounter for Rosita Swain . [facility] for oth System suspected endocrine Repository disorder / Z13.29(ICD-10) 07/21/2018 Admitting Gastro-esophageal Rosita Swain . Active [facility] Diagnosis reflux disease System without esophagitis / Repository K21.9(ICD-10) 07/21/2018 Admitting Upper abdominal pain, Rosita Swain . 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[place], Active [place] heart disease with [facility] heart failure / Hospital I11.0(ICD-10) Repository 12/04/2017 Unknown S83.241A - Other tear Armaan He Active [facility] of medial meniscus, [facility] current injury, right Hospital knee, initial Repository encounter / S83.241A(ICD-10) 11/11/2017 Unknown S22.39XA - Fracture Ungur, Remus Active [facility] of one rib, [facility] unspecified side, Hospital initial encounter for Repository closed fracture / S22.39XA(ICD-10) 10/28/2017 Unknown R06.09 - Other forms Kieran Brown, Active [facility] of dyspnea / [facility] R06.09(ICD-10) Hospital Repository 10/31/2017 Unknown I82.409 - Acute [place], Active [facility] embolism and [facility] thrombosis of Hospital unspecified deep Repository veins of unspecified lower extremity / I82.409(ICD-10) PROCEDURES PROCEDURES No Procedure Records FoundRESULTS RESULTS PROGRESS Observed: 10/21/2018 Status: COMPLETED Source: [place] 10:58 AM [facility] REPOSITORY HNO ID: [id number] Author: Willow Shoemaker (Rt) Service: (none) Author Type: Head Refrigeration Engineer Type: Progress Notes Filed: 10/21/2018 10:58 AM [...] 3V AP/LAT/OBL Observed: 10/21/2018 Status: F Source: [facility] 10:57 AM [facility] REPOSITORY * * *Final Report* * [...] in the lower extremity. IMPRESSION: PES PLANUS Percussion Instrument Tuner: PK Transcribe Date/Time: Oct 22 2018 10:22A Dictated by : DEANNE ABREU MD This examination was interpreted and the report reviewed and electronically signed by: DEANNE ABREU MD on Oct 22 2018 10:25AM EST [id number] Observed: 10/21/2018 Status: COMPLETED Source: [place] 10:14 AM [facility] REPOSITORY HNO ID: [id number] Author: Maurizio Mortensen Service: (none) Author Type: [...] - Herpes simplex type 2 infection - [place] (hard of hearing) 09/08/2015 - Inguinal hernia [...] DPM CNOV Observed: 10/21/2018 Status: COMPLETED Source: [place] 9:55 AM [facility] REPOSITORY Office Visit (PODIWS) ARMAAN GUTHRIE ([id number]) 1955 M [facility] Date Time Provider Department 10/21/18 9:55 [...] A1C (%) Date Value 11/08/2014 5.6 HBA1C, [place] (%) Date Value 12/04/2010 5.6 PCP: BALDEMAR BRINK MD PAST MEDICAL HISTORY Diagnosis Date - Arrhythmia - Atrial fibrillation ([facility]) - Bilateral edema of lower extremity 04/02/2016 - CHF (congestive heart failure) ([facility]) - Detached retina 12/26/20142001 he had a surgery done. - Diverticulosis of colon (without mention of hemorrhage) Diverticulosis. 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, skull fracture as - Hemorrhoids Hemorrhoids - Herpes labialis 11/03/2014 - Herpes simplex type 2 infection - [place] (hard of hearing) 09/08/2015 - Inguinal hernia [...] Laterality Date - COLONOSCOP W/ OR W/O [facility] SPEC 10/26/13 Repeat 2023 - COLONOSCOP W/ OR W/O [facility] SPEC 08/11/15 Colonoscopy - COLONOSCOPY 11/27/01 - [...] [M19.079] Order(s):XR ANKLE GENERAL 3V AP/LAT/OBL LT [[id number]] Order #: [id number] FUTURE Prescriptions as of 10/21/2018 Sig: FUROSEMIDE [...] comorbidity) [E6*INVALID FOR* Pulmonary hypertension, secondary (HCC) [MQE486*INVALID FOR* Varicose vein of leg [I83.90] INVALID [...] 10/21/18 PROGRESS Observed: 10/21/2018 Status: COMPLETED Source: [place] 9:49 AM [facility] O ID: [id number] Author: Eli Jones Ma Service: (none) Author [...] VISIT REPORT Observed: 10/13/2018 Status: F Source: [place] 8:28 AM [facility] [place] [facility] [facility] Pulmonary Medicine of [place] [address] [place] [address] OFFICE VISIT Date of Service: 10/13/18 MR#: [id number] Acct: [id number] Name: ARMAAN GUTHRIE Rep #: [id number] : 1955 Provider: Aundrea Mora Age/Sex: 63/M Location: [facility] Status: Signed Assessment AND Plan 1. GOMEZ [...] extremity edema. He has not added any izxl-pst-[id number] medications. He is not currently on any [...] ER F/U Chief Complaint: Shortness of breath Finance Clerk Required: No Accompanied by: Self Allergies cefuroxime [...] BID #60 tab 10/12/18 [Rx Confirmed 10/13/18] [facility] Medical History Essential hypertension (Chronic) History of [...] METABOLIC PANL Collected: 10/01/2018 Status: F Source: [place] 5:04 PM [facility] REPOSITORY TYPE CODE TESTS RESULT OUT OF REFERENCE UNITS RANGE LAB GLU 74-99 mg/dL Glucose 94 Result Comment: The British Diabetes Association (ADA) provides guidance for cutoff [...] Standards of Medical Care in Diabetes 2016, British Diabetes Association. Diabetes Care. 2016.39(Suppl 1). LAB [...] Performed By: #### BMP, NTBNP, TSH #### [facility] [address] [place], [place] [address] NT PRO BNP Collected: 10/01/2018 Status: F Source: [place] 5:04 PM [facility] MAIN CAMPUS REPOSITORY TYPE CODE TESTS RESULT OUT OF REFERENCE UNITS RANGE LAB PBNP <125 pg/mL High PRO B Natr 1488 Peptide Performed By: #### BMP, NTBNP, TSH #### [facility] [address] [place], [place] [address] TSH Collected: 10/01/2018 Status: F Source: [place] 5:04 PM [facility] [place] REPOSITORY TYPE CODE TESTS RESULT OUT OF RANGE REFERENCE UNITS LAB TSH 0.400-5.500 uU/mL TSH 1.850 Performed By: #### BMP, NTBNP, TSH #### [facility] [address] [place], [place] [address] XR FOOT 3V AP/LAT/OBL Observed: 10/01/2018 Status: F Source: [place] 4:53 PM [facility] REPOSITORY * * *Final Report* * [...] foreign body. IMPRESSION: NO RADIOPAQUE FOREIGN BODY. Percussion Instrument Tuner: PSCB Transcribe Date/Time: Oct 02 2018 2:15P Dictated by : DEANNE ABREU MD This examination was interpreted and the report reviewed and electronically signed by: DEANNE ABREU MD on Oct 02 2018 2:21PM EST [id number] Observed: 10/01/2018 Status: COMPLETED Source: [place] 4:38 PM [facility] [place] REPOSITORY HNO ID: [id number] Author: Mayelin Saucedo Rt Service: (none) Author Type: (none) Type: Progress Notes Filed: 10/01/2018 4:53 PM Note Text: Radiology Service Progress Note PATIENT NAME: Armaan Gtuhrie DATE OF SERVICE: October 01, 2018 TIME: [...] PM PROGRESS Observed: 10/01/2018 Status: COMPLETED Source: [place] 3:36 PM [facility] [place] REPOSITORY O ID: [id number] Author: Nneka Denson Service: (none) Author Type: [...] he states he was last seen at [facility] ER ~2 weeks ago for SOB. [...] - Herpes simplex type 2 infection - [place] (hard of hearing) 09/08/2015 - Inguinal hernia [...] plan. CNOV Observed: 10/01/2018 Status: COMPLETED Source: [place] 3:20 PM [facility] REPOSITORY Office Visit (INTMWS) ARMAAN GUTHRIE ([id number]) 1955 M [facility] Date Time Provider Department 10/01/18 3:20 PM NNEKA DENSON ([facility]) INTMWS During your visit today, we [...] he states he was last seen at [facility] ER ~2 weeks ago for SOB. [...] - Herpes simplex type 2 infection - [place] (hard of hearing) 09/08/2015 - Inguinal hernia [...] medication, Patient agreeable to restart. Nneka Denson APRN.[employer] SUPERVISOR Prescription instructions reviewed with patient as applicable. Potential red flag symptoms discussed with the patient. Reviewed appropriate action plan to take if red flag symptoms occur. Patient agreeable to treatment plan. Nneka Denson APRN.CLAUS 10/01/2018 4:21 PM Signed Right foot: will do xray given length of symptoms and uncertain of possible foreign body. If xrays are negative should treat at plantar wart. Can picking belt operator over the counter plantar wart. Fluid retention: [...] MUST RESTART XARELTO! Referring Provider: BALDEMAR BRINK [[id number]] Allergies As of Date: 10/01/2018 Noted Allergy Reaction CEFTIN (CEFUROXIME) 07/01/2005 2 - Rash LISINOPRIL 11/02/2013 3 - Cough PENICILLINS 07/01/2005 4 - Hives VICODIN (HYDROCODONE-ACETAMINOPHE*07/01/2005 2 - Rash Date Reviewed: 10/01/2018 Reviewed by: Virginia Silver Opal Polisher - Fully Assessed Reason for Visit: Edema [39] Primary Visit Diagnosis:SOB (shortness of breath) on exertion [R06.02] Other Visit Diagnoses:Medication monitoring encounter [Z51.81] Cold intolerance [R68.89] Right foot pain [M79.671] Order(s):BASIC METABOLIC PNL [SQBMP] Order #: [id number] FUTURE NT PRO BNP [SQNTBNP] Order #: [id number] FUTURE TSH BLD [SQTSH] Order #: [id number] FUTURE XR FOOT GENERAL 3V AP/LAT/OBL RT [[id number]] Order #: [id number] FUTURE Omeprazole 40 mg capsuleTake 1 capsule [...] comorbidity) [E6*INVALID FOR* Pulmonary hypertension, secondary (HCC) [ETH969*INVALID FOR* Varicose vein of leg [I83.90] INVALID FOR* More... Other instructions from your clinician: Right foot: will do xray given length of symptoms and uncertain of possible foreign body. If xrays are negative should treat at plantar wart. Can picking belt operator over the counter plantar wart. Fluid retention: [...] WALK TEST Observed: 09/24/2018 Status: F Source: [place] 3:02 PM [facility] [place] [facility] Pulmonary Services/Neurology [address] [place] [address] MR#: [id number] Acct: [id number] Name: ARMAAN GUTHRIE Rep #: [id number] : 1955 63 From: Kieran Diop DO Referring Dr: Carlo Heredia MD Date: Ordering Dr: Sex: M C Location: PSN PSN 6 Minute Walk Test - 6 Minute Walk Test 6 Minute Walk Test: 6 Minute Walk Test PSN:6-Minute Walk Test Start: 09/22/18 08:39 Freq: Status: Active Protocol: RESP.6MINW Document 09/22/18 08:30 HG (Rec: 09/22/18 08:41 HG [id number]) 6 Minute Walk Test Date Performed 09/22/18 [...] Dictated: 09/24/18 1501 Date Transcribed: 09/24/18 150 Percussion Instrument Tuner: Kieran Diop DO Signed 12 LEAD ELECTROCARDIOGRAM Observed: 09/23/2018 Status: F Source: [place] 3:53 PM [facility] [place] [facility] [facility] Cardiovascular Services [address] [place] [address] 12 Lead EKG 09/19/18 0932 MR#: [id number] Acct: [id number] Name: ARMAAN GUTHRIE Rep #: [id number] : 1955 63 From: Morro Perez MD [...] ECG Confirmed by MORRO PEREZ MD ([id number]), editorial writer JANETH DING ([id number]) on 09/23/2018 3:52:52 PM Referred By: Zach Castillo Confirmed By:MORRO PEREZ MD 09/23/18 1552 Date Morro Perez MD CC: Baldemar Brink MD; Stevie Alberts MD Signed EMERGENCY DEPARTMENT Observed: 09/19/2018 Status: F Source: [place] SUMMARY 4:56 PM [facility] [place] [facility] Medical Records Department [address] [place] [address] Emergency Department Summary 09/19/18 0926 MR#: [id number] Acct: [id number] Name: ARMAAN GUTHRIE Rep #: [id number] : 1955 63 From: Stevie Alberts MD [...] 1. CHF This note was generated with Zenbox dictation software. It may contain incorrect words, [...] problems, contact your Primary Care Provider. Call [facility] ([phone]) or report to the closest Emergency Room. Call 911 if necessary. 09/19/18 6139 <Electronically signed by Stevie Alberts MD> Date Stevie Alberts MD Cosigner Signature (If Indicated): Date CC: Baldemar Brink MD DISCHARGE INSTRUCTION Observed: 09/19/2018 Status: F Source: [place] 4:56 PM [facility] [place] [facility] [facility] Medical Records Department [address] [place] [address] Discharge Instruction 09/19/18 1044 MR#: [id number] Acct: [id number] Name: ARMAAN GUTHRIE Rep #: [id number] : 1955 63 From: Stevie Alberts MD [...] your Primary Care Provider. Call [facility] ([phone]) or report to the closest Emergency Room. Call 911 if necessary. 09/19/18 1656 <Electronically signed by Stevie Alberts MD> Date Stevie Alberts MD Cosigner Signature (If Indicated): Date CC: Baldemar Brink MD CBC W/DIFF, AUTOMATED Collected: 09/19/2018 Status: F Source: [place] 9:40 AM [facility] [place] TYPE CODE TESTS RESULT OUT OF [...] Lymph 1.09 Performed By: #### L100.0100 #### [facility] [address] [place], [address] BASIC METABOLIC Collected: 09/19/2018 Status: F Source: [place] PROFILE ([facility]) 9:40 AM [facility] [place] TYPE CODE TESTS RESULT OUT OF [...] 7 Performed By: #### L500.2500, L501.4010 #### [facility] [address] [facility] [place], [place], [id number] TROPONIN-I Collected: 09/19/2018 Status: F Source: [place] 9:40 AM [facility] [place] TYPE CODE TESTS RESULT OUT OF RANGE REFERENCE UNITS LAB L501.4010 <0.045 ng/mL Normal 0.019 TROPONIN-I Result Comment: TROPONIN-I EXPECTED VALUES <0.045 Negative 0.045 - 0.590 Consistent with Cardiac Damage > OR = 0.600 Critical Value Not every elevated troponin is indicative of NH. These values should be used with clinical judgement in examining the patient's clinical picture for diagnosis. To establish a diagnosis of NH versus myocardial injury, there must be a demonstrated rise and/or fall in the troponin values, in addition to ischemic symptoms, EKG changes, new regional wall motion abnormality, and/or angiographical evidence. PLEASE NOTE: REFERENCE RANGES EDITED 18 Performed By: #### L500.2500, L501.4010 #### [facility] [address] [facility] [place], [address] BNP,B-TYPE NATRIURETIC Collected: 09/19/2018 Status: F Source: [place] PEPTIDE 9:40 AM [facility] [place] TYPE CODE TESTS RESULT OUT OF RANGE REFERENCE UNITS LAB L503.6620 0-100 pg/mL High B-TYPE 596.6 ANA PEP Performed By: #### L503.6620 #### [facility] [address] [place], [address] CHEST 1 VIEW Observed: 09/19/2018 Status: F Source: [place] (PORTABLE) 9:26 AM [facility] [place] [facility] Imaging Services [address] [place] [address] Chest 1 View (Portable) MR#: [id number] Acct: [id number] Name: ARMAAN GUTHRIE Rep #: [id number] : 1955 M 63 From: Arnold Bustamante MD PCP: Baldemar Brink MD Status: REG ER Study: Chest 1 View (Portable) Date of Exam: 09/19/18 Exam# [id number] Ordering Dr: Stevie Alberts MD STUDY: X-RAY [...] CC: Baldemar Brink MD; Stevie Alberts MD Percussion Instrument Tuner: Signed BASIC METABOLIC Collected: 09/17/2018 Status: F Source: [place] PROFILE (BMP) 4:44 PM [facility] [place] TYPE CODE TESTS RESULT OUT OF [...] By: #### L500.2500, L500.3400, L501.9310, L501.9520 #### [facility] [address] [place], [address] LIVER PROFILE Collected: 09/17/2018 Status: F Source: [place] 4:44 PM [facility] [place] TYPE CODE TESTS RESULT OUT OF [...] By: #### L500.2500, L500.3400, L501.9310, L501.9520 #### [facility] [address] [place], [address] T4 TOTAL, THYROXIN Collected: 09/17/2018 Status: F Source: [place] 4:44 PM [facility] [place] TYPE CODE TESTS RESULT OUT OF REFERENCE UNITS RANGE LAB L501.9310 4.5-12.1 ug/dL T4 High THYROXIN 15.1 Performed By: #### L500.2500, L500.3400, L501.9310, L501.9520 #### [facility] [address] [place], [place], [id number] THYROID STIM HORMONE Collected: 09/17/2018 Status: F Source: [place] (TSH) 4:44 PM [facility] [place] TYPE CODE TESTS RESULT OUT OF RANGE REFERENCE UNITS LAB L501.9520 0.358-3.74 uIU/mL Normal TSH 2.20 Performed By: #### L500.2500, L500.3400, L501.9310, L501.9520 #### [facility] [address] [place], [place], [address] PULMONARY VISIT REPORT Observed: 09/08/2018 Status: F Source: [place] 7:09 AM [facility] [place] Pulmonary Medicine of [address] [place], [place] [address] OFFICE VISIT Date of Service: 09/08/18 MR#: [id number] Acct: [id number] Name: ARMAAN GUTHRIE Rep #: [id number] : 1955 Provider: Carlo Heredia MD Age/Sex: 63/M [place] [facility] [place] Status: Signed Assessment AND Plan Problems 1. [...] (BMI) 40.1 Intake Visit Reasons: Insomnia, SOB Finance Clerk Required: No Accompanied by: Self Is patient [...] F Source: [place]IS[place] PROFILE (BMP) 4:41 PM [facility] [place] TYPE CODE TESTS RESULT OUT OF [...] GAP 8 Performed By: #### L500.2500 #### [facility] [address] [facility] [place], [address] 12 LEAD ELECTROCARDIOGRAM Observed: 08/17/2018 Status: F Source: [place] 2:31 PM [facility] [place] [facility] Cardiovascular Services [address] [place] [address] 12 Lead EKG 08/13/18 0511 MR#: [id number] Acct: [id number] Name: ARMAAN GUTHRIE Rep #: [id number] : 1955 63 From: Stevie Rondon MD [...] Normal ECG Confirmed by STEVIE RONDON ([id number]), editorial writer JANETH DING ([id number]) on 08/17/2018 2:31:14 PM Referred By: DR DALLAS Confirmed By:STEVIE RONDON 08/17/18 1431 Date Stevie Rondon MD CC: Baldemar Brink MD; Zach Dallas MD Signed PULMONARY FUNCTION Observed: 08/16/2018 Status: F Source: CRISSY TEST 7:01 AM [facility] REPOSITORY [facility] Pulmonary Services/Neurology [address] [place] [address] MR#: [id number] Acct: [id number] Name: ARMAAN GUTHRIE Rep #: [id number] : 1955 63 From: Kieran Diop DO Referring Dr: Zach Castillo MD Status: REG CLI Ordering Dr: Date: Location: [facility] Sex: M C INTRODUCTION: The patient is [...] MD Date Dictated: 08/16/18657 Date Transcribed: 08/16/18657 Percussion Instrument Tuner: JOSE Signed ECHO, COMPLETE W/ Observed: 08/14/2018 Status: F Source: CRISSY CONTRAST 7:03 PM [facility] [place] [facility] Cardiovascular Services [address] [place] [address] Echo Complete W/ Contrast 08/14/18 09 MR#: [id number] Acct: [id number] Name: ARMAAN GUTHRIE Rep #: [id number] : 1955 63 From: Zach Castillo MD Attending Dr: Zach Castillo MD Status: REG CLI Ordering Dr: Zach Castillo MD Date: 08/14/18 Location: [facility] Sex: M C Admitted: Reason For Study: [...] MD Date Dictated: 08/14/18900 Date Transcribed: 08/14/181901 Percussion Instrument Tuner: Signed BASIC METABOLIC Collected: 08/14/2018 Status: F Source: CRISSY PROFILE (BMP) 10:26 AM [facility] [place] TYPE CODE TESTS RESULT OUT OF [...] Performed By: #### L500.2500, L500.3400, L500.4100 #### [facility] [address] [place], [place], [address] LIVER PROFILE Collected: 08/14/2018 Status: F Source: [place] 10:26 AM [facility] [place] TYPE CODE TESTS RESULT OUT OF [...] Performed By: #### L500.2500, L500.3400, L500.4100 #### [facility] [address] [place], [address] LIPID PROFILE Collected: 08/14/2018 Status: F Source: [place] 10:26 AM [facility] [place] TYPE CODE TESTS RESULT OUT OF [...] Performed By: #### L500.2500, L500.3400, L500.4100 #### [facility] [address] [place], [address] EMERGENCY DEPARTMENT Observed: 08/13/2018 Status: F Source: [place] SUMMARY 6:42 AM [facility] [place] [facility] Medical Records Department [address] [place] [address] Emergency Department Summary 08/13/18 0603 MR#: [id number] Acct: [id number] Name: ARMAAN GUTHRIE Rep #: [id number] : 1955 63 From: Zach Dallas MD [...] Finger contusion This note was generated with Zenbox dictation software. It may contain incorrect words, [...] your Primary Care Provider. Call [facility] ([phone]) or report to the closest Emergency Room. Call 911 if necessary. 08/13/18 0642 <Electronically signed by Zach Dallas MD> Date Zach Dallas MD Cosigner Signature (If Indicated): Date CC: Baldemar Brink MD DISCHARGE INSTRUCTION Observed: 08/13/2018 Status: F Source: CRISSY 6:14 AM [facility] Medical Records Department [address] [place] [address] Discharge Instruction 08/13/18612 MR#: [id number] Acct: [id number] Name: ARMAAN GUTHRIE Rep #: [id number] : 1955 63 From: Zach Dallas MD [...] your Primary Care Provider. Call [facility] ([phone]) or report to the closest Emergency Room. Call 911 if necessary. 08/13/18613 <Electronically signed by Zach Dallas MD> Date Zach Dallas MD Cosigner Signature (If Indicated): Date CC: Baldemar Brink MD FINGER(S) MIN 2 VIEWS Observed: 08/13/2018 Status: F Source: CRISSY 6:06 AM [facility] Imaging Services [address] [place] [address] Finger(s) Min 2 Views MR#: [id number] Acct: [id number] Name: ARMAAN GUTHRIE Rep #: [id number] : 1955 M 63 From: Nneka Farfan MD PCP: Baldemar Birnk MD Status: DEP ER Study: Finger(s) Min 2 Views Date of Exam: 08/13/18 Exam# [id number] Ordering Dr: Zach Dallas MD STUDY: X-RAY [...] CC: Baldemar Brink MD; Zach Dallas MD Percussion Instrument Tuner: Signed CHEST 1 VIEW Observed: 08/13/2018 Status: F Source: [place]IS[place] (PORTABLE) 4:55 AM [facility] [place] [facility] Imaging Services [address] [place] [address] Chest 1 View (Portable) MR#: [id number] Acct: [id number] Name: ARMAAN GUTHRIE Rep #: [id number] : 1955 M 63 From: Nneka Farfan MD PCP: Baldemar Brink MD Status: REG ER Study: Chest 1 View (Portable) Date of Exam: 08/13/18 Exam# [id number] Ordering Dr: Zach Dallas MD STUDY: X-RAY [...] CC: Baldemar Brink MD; Zach Dallas MD Percussion Instrument Tuner: Signed CBC W/DIFF, AUTOMATED Collected: 08/13/2018 Status: F Source: CRIS[place] 4:45 AM [facility] [place] TYPE CODE TESTS RESULT OUT OF [...] Lymph 1.94 Performed By: #### L100.0100 #### [facility] [address] [place], [address] COMPREHENSIVE METABOLIC Collected: 08/13/2018 Status: F Source: [facility] 4:45 AM [facility] [place] TYPE CODE TESTS RESULT OUT OF [...] 9 Performed By: #### L500.4050, L501.4010 #### [facility] [address] [place], [place], [address] TROPONIN-I Collected: 08/13/2018 Status: F Source: [place] 4:45 AM [facility] [place] TYPE CODE TESTS RESULT OUT OF RANGE REFERENCE UNITS LAB L501.4010 <0.045 ng/mL Normal 0.028 TROPONIN-I Result Comment: TROPONIN-I EXPECTED VALUES <0.045 Negative 0.045 - 0.590 Consistent with Cardiac Damage > OR = 0.600 Critical Value Not every elevated troponin is indicative of NH. These values should be used with clinical judgement in examining the patient's clinical picture for diagnosis. To establish a diagnosis of NH versus myocardial injury, there must be a demonstrated rise and/or fall in the troponin values, in addition to ischemic symptoms, EKG changes, new regional wall motion abnormality, and/or angiographical evidence. PLEASE NOTE: REFERENCE RANGES EDITED 18 Performed By: #### L500.4050, L501.4010 #### [facility] [address] [place], [place], [address] CARDIOLOGY VISIT Observed: 07/31/2018 Status: F Source: CRISSY REPORT 3:09 PM [facility] [place] [facility] 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 Cardiac cath: 06/28/2009: [facility]: BREANN Gerardo The patient was found [...] 07/31/2018 Status: F Source: [place]IS[place] 2:52 PM [facility] [place] TYPE CODE TESTS RESULT OUT OF [...] Performed By: #### L500.3400, L501.9520, L506.0400 #### [facility] [address] [place], [place], [address] THYROID STIM HORMONE Collected: 07/31/2018 Status: F Source: CRISSY (TSH) 2:52 PM [facility] [place] TYPE CODE TESTS RESULT OUT OF RANGE REFERENCE UNITS LAB L501.9520 0.358-3.74 uIU/mL Normal TSH 1.49 Performed By: #### L500.3400, L501.9520, L506.0400 #### [facility] [address] [place], [address] T4 FREE DIRECT Collected: 07/31/2018 Status: F Source: [place]IS[place] 2:52 PM [facility] [place] TYPE CODE TESTS RESULT OUT OF REFERENCE UNITS RANGE LAB L506.0400 0.76-1.46 ng/dL High T4 FREE 1.69 DIRECT Performed By: #### L500.3400, L501.9520, L506.0400 #### [facility] [address] [facility]. [place], [place], [address] HEMOGRAM W/ AUTODIFF Collected: 07/21/2018 Status: F Source: [facility] 12:28 PM SYSTEM REPOSITORY TYPE CODE TESTS [...] By: #### HEMDF, LIPA4, CMP3, TSH5 #### [facility] [address] [place] [phone] LIPASE Collected: 07/21/2018 Status: F Source: [facility] 12:28 PM SYSTEM REPOSITORY TYPE CODE TESTS RESULT OUT OF RANGE REFERENCE UNITS LAB LIPA4 23-300 U/L Normal Lipase 50 Performed By: #### HEMDF, LIPA4, CMP3, TSH5 #### [facility] [address] [place] [phone] COMP METABOLIC PANEL Collected: 07/21/2018 Status: F Source: [facility] 12:28 PM SYSTEM REPOSITORY TYPE CODE TESTS [...] By: #### HEMDF, LIPA4, CMP3, TSH5 #### [facility] [address] [place] [phone] THYROID STIM. Collected: 07/21/2018 Status: F Source: [facility] HORMONE 12:28 PM SYSTEM REPOSITORY TYPE CODE TESTS RESULT OUT OF RANGE REFERENCE UNITS LAB TSH5 0.465-4.680 u[IU]/mL Normal Thyroid Stim. 0.875 Hormone Performed By: #### HEMDF, LIPA4, CMP3, TSH5 #### [facility] [address] [place] [phone] TTG, IGA Collected: 07/21/2018 Status: F Source: [facility] 12:28 PM SYSTEM REPOSITORY TYPE CODE TESTS [...] positive predictive value for disease. Performed by [facility], [address] [place] [address] [email or web address], Winston Velez MD - Lab. Director Performed By: #### TTGA2, TTGG #### The performing lab is in the report. TTG, IGG Collected: 07/21/2018 Status: F Source: [facility] 12:28 PM SYSTEM REPOSITORY TYPE CODE TESTS [...] not rule out gluten-sensitive enteropathy. Performed by [facility], [address] [place] [address] [email or web address], Winston Velez MD - Lab. Director Performed By: #### TTGA2, TTGG #### The performing lab is in the report. PROGRESS Observed: 07/08/2018 Status: COMPLETED Source: [place] 11:34 AM [facility] REPOSITORY HNO ID: [id number] Author: Nneka (Claus) Bhaskar Service: (none) Author [...] - Herpes simplex type 2 infection - [place] (hard of hearing) 09/08/2015 - Inguinal hernia [...] Laterality Date - COLONOSCOP W/ OR W/O [facility] SPEC 10/26/13 Repeat 2023 - COLONOSCOP W/ OR W/O [facility] SPEC 08/11/15 Colonoscopy - COLONOSCOPY 11/27/01 - [...] AGE 3 YRS PLUS + IM Nneka Denosn APRN.CLAUS Prescription instructions reviewed with patient as applicable. Potential red flag symptoms discussed with the patient. Reviewed appropriate action plan to take if red flag symptoms occur. Patient agreeable to treatment plan. CNOV Observed: 07/08/2018 Status: COMPLETED Source: [place] 11:20 AM [facility] REPOSITORY Office Visit (INTMWS) ARMAAN GUTHRIE ([id number]) 1955 M [facility] Date Time Provider Department 07/08/18 11:20 AM NNEKA DENSON ([facility]) INTMWS During your visit today, we [...] - Herpes simplex type 2 infection - [place] (hard of hearing) 09/08/2015 - Inguinal hernia [...] Laterality Date - COLONOSCOP W/ OR W/O [facility] SPEC 10/26/13 Repeat 2023 - COLONOSCOP W/ OR W/O [facility] SPEC 08/11/15 Colonoscopy - COLONOSCOPY 11/27/01 - [...] without murmur, gallop, or rubs. No ectopy AAILYAH/ARB MED PRESCRIBED due on 1975 INFLUENZA(1) due [...] QUADRIVALENT AGE 3 YRS PLUS + IM [[id number]] Order #: [id number] mupirocin (BACTROBAN) 2 % ointmentApply 1 application [...] comorbidity) [E6*INVALID FOR* Pulmonary hypertension, secondary (HCC) [OHD265*INVALID FOR* Varicose vein of leg [I83.90] INVALID [...] ESOPHAGUS ONLY Observed: 06/02/2018 Status: F Source: [place] 8:19 AM [facility] [place] [facility] Imaging Services [address] [place] [address] Esophagus Only MR#: [id number] Acct: [id number] Name: ARMAAN GUTHRIE Rep #: [id number] : 1955 M 62 From: Duke Duran MD PCP: Baldemar Brink MD Status: REG CLI Study: Esophagus Only Date of Exam: 06/02/18 Exam# [id number] Ordering Dr: Markie Summers MD STUDY: X-RAY [...] Duke Duran MD at 10:38 EDT Tel [phone], Service support , CC: Baldemar Brink MD; Markie Summers MD Percussion Instrument Tuner: Signed CARDIOLOGY VISIT Observed: 05/08/2018 Status: F Source: CRISSY REPORT 10:48 AM [facility] [place] [facility] [place] [address] [facility] [place] [address] OFFICE VISIT Date of Service: 05/08/18 MR#: [id number] Acct: [id number] Name: ARMAAN GUTHRIE Rep #: [id number] : 1955 Provider: Gosia Boyle Age/Sex: 62/M Location: [facility] [place] Status: Signed HPI HPI Details: ARMAAN GUTHRIE, [...] Blood Pressure 135/85 Intake Visit Reasons: CP Finance Clerk Required: No Is patient in pain?: No [...] PRN #25 tab 05/08/18 [Rx Confirmed 05/08/18] [facility] Medical History History of congestive heart failure [...] AND Plan 1. Coronary artery disease involving [place] coronary artery of [place] heart without angina pectoris I25.10 Plan Stable, [...] vis,est,level 3 Diagnoses Coronary artery disease involving [place] coronary artery of [place] heart without angina pectoris I25.10 Coronary Disease-Associated Artery/Lesion type: [place] artery [place] vs. transplanted heart: [place] heart Associated angina: without angina Essential hypertension I10 Hypertension type: essential hypertension PAF (paroxysmal atrial fibrillation) I48.0 Coding Level of Care Code Off vis,est,level 3 Diagnoses Coronary artery disease involving [place] coronary artery of [place] heart without angina pectoris I25.10 Coronary Disease-Associated Artery/Lesion type: [place] artery [place] vs. transplanted heart: [place] heart Associated angina: without angina Essential hypertension I10 Hypertension type: essential hypertension PAF (paroxysmal atrial fibrillation) I48.0 05/08/18 1048 <Electronically signed by Gosia MEJIA> Date Gosia MEJIA Cosign Signature: Date (if applicable) CC: Baldemar Brink MD 12 LEAD ELECTROCARDIOGRAM Observed: 05/07/2018 Status: F Source: [place] 9:56 AM [facility] [place] [facility] Cardiovascular Services [address] [place] [address] 12 Lead EKG 05/04/18 2220 MR#: [id number] Acct: [id number] Name: ARMAAN GUTHRIE Rep #: [id number] : 1955 62 From: Zach Castillo MD Attending Dr: Darline Turcios Status: DIS NIMO Ordering Dr: Buck Cheema DO Date: 05/04/18 Location: [facility] Sex: M C Admitted: 05/04/18 Test Reason : CP Blood Pressure : / mmHG Vent. Rate : 073 BPM Atrial Rate : 073 BPM P-R Int : 182 ms QRS Dur : 104 ms QT Int : 432 ms P-R-T Axes : 038 -09 032 degrees QTc Int : 475 ms Normal sinus rhythm Normal ECG Confirmed by ZACH CASTILLO MD ([id number]), editorial writer JANETH DING ([id number]) on 05/07/2018 9:56:29 AM Referred By: KENRICK Confirmed By:ZACH CASTILLO MD 05/07/18 0956 Date Zach Castillo MD CC: Baldemar Brink MD; Darline Turcios; Buck Cheema Signed DISCHARGE SUMMARY Observed: 05/05/2018 Status: F Source: [place] 3:57 PM [facility] [place] [facility] Medical Records Department [address] [place] [address] Discharge Summary 05/05/18 1402 MR#: [id number] Acct: [id number] Name: ARMAAN GUTHRIE Rep #: [id number] : 1955 62 From: Srini MEJIA PCP: Baldemar Brink MD Status: DIS NIMO Y Location: [place] [address]-1 <Srini Laguerre - Last Filed: 05/05/18 14:02> [...] weeks. He is going to try an xerp-hrp-scgdqex antacid such as omeprazole or Pepcid. We also discussed his sleep apnea-he admitted that he had not been using his CPAP machine at all. He is going to start trying to use it more. He is discharged home in stable condition. 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 I advised [...] are stable. This note was generated with Zenbox dictation software. It may contain incorrect words, spelling, and punctuation that were not noted in checking the note before signing. Disposition: Home Minutes spent on discharge:: 25 Patient Condition:: Stable Meaningful Use Info Meaningful Use Diagnoses (Choose all that apply): None applicable Code Visit OBSV E AND M: 99346 Observation care discharge 05/05/18 1407 <Electronically signed by Srini MEJIA> Date Srini MEJIA 05/05/18 1557<Electronically signed by Darline Turcios MD> Cosigner Signature (if applicable): Date Darline Turcios MD CC: ROBERTO Laguerre; Baldemar Brink MD; Darline Turcios; Zach Castillo MD Signed DISCHARGE INSTRUCTION Observed: 05/05/2018 Status: F Source: [place] 11:41 AM [facility] [place] [facility] Medical Records Department [address] [place] [address] Instructions for Home/Discharge Instructions 05/05/18 1140 MR#: [id number] Acct: [id number] Name: ARMAAN GUTHRIE Rep #: [id number] : 1955 62 From: Srini MEJIA PCP: [...] STRESS REPORT Observed: 05/05/2018 Status: F Source: [place] 9:22 AM [facility] Cardiovascular Services [address] [place] [address] MR#: [id number] Acct: [id number] Name: ARMAAN GUTHRIE Rep #: [id number] : 1955 62 From: Zach Castillo MD [...] 59 %. This note was generated with [employer] Technologies[employer] software. It may contain incorrect words, spelling, and punctuation that were not noted in checking the note before signing. 05/05/18 0922 <Electronically signed by Zach Castillo MD> Date Zach Castillo MD CC: Baldemar Brink MD; Darline Turcios Date Dictated: 05/05/18914 Date Transcribed: 05/05/18914 Percussion Instrument Tuner: PM Signed TROPONIN-I Collected: 05/05/2018 Status: F Source: [place] 5:35 AM [facility] [place] Order Comment: 'TROP' Serial specimen #1, #2 or #3: 3 'TROP' Serial specimen #1, #2, #3, or #4: 3 TYPE CODE TESTS RESULT OUT OF RANGE REFERENCE UNITS LAB L501.4010 <0.045 ng/mL Normal 0.024 TROPONIN-I Result Comment: TROPONIN-I EXPECTED VALUES <0.045 Negative 0.045 - 0.590 Consistent with Cardiac Damage > OR = 0.600 Critical Value Not every elevated troponin is indicative of NH. These values should be used with clinical judgement in examining the patient's clinical picture for diagnosis. To establish a diagnosis of NH versus myocardial injury, there must be a demonstrated rise and/or fall in the troponin values, in addition to ischemic symptoms, EKG changes, new regional wall motion abnormality, and/or angiographical evidence. PLEASE NOTE: REFERENCE RANGES EDITED 18 Performed By: #### L501.4010 #### [facility] [place], [address] CBC-COMPLETE BLOOD CNT Collected: 05/05/2018 Status: F Source: [place] NO DIFF 2:30 AM [facility] [place] TYPE CODE TESTS RESULT OUT OF [...] 10.5 Performed By: #### L100.0500, L100.0100 #### [facility] [address] [place], [place], [address] CBC W/DIFF, AUTOMATED Collected: 05/05/2018 Status: F Source: [place] 2:30 AM [facility] [place] TYPE CODE TESTS RESULT OUT OF [...] 1.17 Performed By: #### L100.0500, L100.0100 #### [facility] [address] [place], [address] PROTHROMBIN TIME W/INR Collected: 05/05/2018 Status: F Source: [place] 2:30 AM [facility] [place] TYPE CODE TESTS RESULT OUT OF RANGE REFERENCE UNITS LAB L300.4150 11.7-14.9 SECONDS High PROTIME 32.9 LAB L300.4200 Normal INR 3.2 Performed By: #### L300.3900, L300.4310 #### [facility] [address] [place], [address] PARTIAL THROMBOPLAST Collected: 05/05/2018 Status: F Source: [place] TIME 2:30 AM [facility] [place] TYPE CODE TESTS RESULT OUT OF REFERENCE UNITS RANGE LAB L300.4310 24.1-36.2 Seconds High PTT 40.5 Performed By: #### L300.3900, L300.4310 #### [facility] [address] [place], [address] TROPONIN-I Collected: 05/05/2018 Status: F Source: [place] 2:30 AM [facility] [place] [facility] Order Comment: 'TROP' Serial specimen #1, #2 or #3: 2 TYPE CODE TESTS RESULT OUT OF RANGE REFERENCE UNITS LAB L501.4010 <0.045 ng/mL Normal 0.029 TROPONIN-I Result Comment: TROPONIN-I EXPECTED VALUES <0.045 Negative 0.045 - 0.590 Consistent with Cardiac Damage > OR = 0.600 Critical Value Not every elevated troponin is indicative of NH. These values should be used with clinical judgement in examining the patient's clinical picture for diagnosis. To establish a diagnosis of NH versus myocardial injury, there must be a demonstrated rise and/or fall in the troponin values, in addition to ischemic symptoms, EKG changes, new regional wall motion abnormality, and/or angiographical evidence. PLEASE NOTE: REFERENCE RANGES EDITED 18 Performed By: #### L501.4010 #### [facility] [address] [place], [address] COMPREHENSIVE METABOLIC Collected: 05/05/2018 Status: F Source: [place] PROFIL 2:30 AM [facility] [place] TYPE CODE TESTS RESULT OUT OF [...] 9 Performed By: #### L500.4050, L500.4100 #### [facility] [address] [place], [address] LIPID PROFILE Collected: 05/05/2018 Status: F Source: [place] 2:30 AM [facility] [place] TYPE CODE TESTS RESULT OUT OF [...] 18 Performed By: #### L500.4050, L500.4100 #### [facility] [address] [place], [address] HISTORY AND PHYSICAL Observed: 05/04/2018 Status: F Source: [place] EXAM 11:59 PM [facility] [place] [facility] Medical Records Department [address] [place] [address] History and Physical 05/04/18 2350 MR#: [id number] Acct: [id number] Name: ARMAAN GUTHRIE Rep #: [id number] : 1955 62 From: Zach Morillo MD [...] care Code Visit OBSV E AND M: 20781 Initial observation care L2 05/04/18 8399 <Electronically signed by Zach Morillo MD> Date Zach Morillo MD Cosigner Signature: Date (if applicable) CC: Baldemar Brink MD; Zach Morillo MD Signed EMERGENCY DEPARTMENT Observed: 05/04/2018 Status: F Source: [place] SUMMARY 11:42 PM [facility] [place] [facility] [facility] Medical Records Department [address] [facility] [address] Emergency Department Summary 05/04/18 2254 MR#: [id number] Acct: [id number] Name: ARMAAN GUTHRIE Rep #: [id number] : 1955 62 From: Buck Etienne PCP: [...] symptoms in the past. Denies history of NH. Patient followed by Dr. Castillo history of [...] chest pain This note was generated with Zenbox dictation software. It may contain incorrect words, spelling, and punctuation that were not noted in review of the chart prior to signing ED Disposition - Plan for ED Patient: Disposition: Acute [facility] Chief Complaint: Chest Pain Diagnosis: Chest pain Referrals: Baldemar Brink MD [Primary Care Provider] - What to do if you have Problems For any increased pain, shortness of breath, bleeding, nausea or vomiting, chest pain, or any unexpected problems, contact your Primary Care Provider. Call [facility] ([phone]) or report to the closest Emergency Room. Call 911 if necessary. 05/04/18 9854 <Electronically signed by Buck Etienne> Date Buck Etienne Cosigner Signature (If Indicated): Date CC: Baldemar Brink MD CHEST 1 VIEW Observed: 05/04/2018 Status: F Source: [place] (PORTABLE) 10:54 PM [facility] REPOSITORY [facility] Imaging Services [address] [place] [address] Chest 1 View (Portable) MR#: [id number] Acct: [id number] Name: ARMAAN GUTHRIE Rep #: [id number] : 1955 M 62 From: Alexis Nelson DO PCP: Baldemar Brink MD Status: REG ER Study: Chest 1 View (Portable) Date of Exam: 05/04/18 Exam# [id number] Ordering Dr: Buck Cheema DO STUDY: X-RAY [...] Alexis Nelson DO at 23:24 EDT Tel [phone], Service support , CC: Baldemar Brink MD; Buck Cheema Percussion Instrument Tuner: Signed CBC W/DIFF, AUTOMATED Collected: 05/04/2018 Status: F Source: [place] 10:50 PM [facility] [place] TYPE CODE TESTS RESULT OUT OF [...] Lymph 1.51 Performed By: #### L100.0100 #### [facility] [address] [place], [place], [address] BASIC METABOLIC Collected: 05/04/2018 Status: F Source: [place] PROFILE (BMP) 10:50 PM [facility] [place] TYPE CODE TESTS RESULT OUT OF [...] 6 Performed By: #### L500.2500, L501.4010 #### [facility] [address] [place], [address] TROPONIN-I Collected: 05/04/2018 Status: F Source: [place] 10:50 PM [facility] [place] TYPE CODE TESTS RESULT OUT OF RANGE REFERENCE UNITS LAB L501.4010 <0.045 ng/mL Normal < 0.015 TROPONIN-I Result Comment: TROPONIN-I EXPECTED VALUES <0.045 Negative 0.045 - 0.590 Consistent with Cardiac Damage > OR = 0.600 Critical Value Not every elevated troponin is indicative of NH. These values should be used with clinical judgement in examining the patient's clinical picture for diagnosis. To establish a diagnosis of NH versus myocardial injury, there must be a demonstrated rise and/or fall in the troponin values, in addition to ischemic symptoms, EKG changes, new regional wall motion abnormality, and/or angiographical evidence. PLEASE NOTE: REFERENCE RANGES EDITED 18 Performed By: #### L500.2500, L501.4010 #### [facility] [address] [place], [place], [address] BASIC METABOLIC Collected: 04/20/2018 Status: F Source: [place] PROFILE (BMP) 9:04 AM [facility] [place] TYPE CODE TESTS RESULT OUT OF [...] GAP 8 Performed By: #### L500.2500 #### [facility] [address] [place], [place], [address] PROGRESS Observed: 03/18/2018 Status: COMPLETED Source: [place] 2:27 PM [facility] [place] REPOSITORY HNO ID: [id number] Author: Rachel Herrera Service: (none) Author Type: Physician Batter Depositor Type: Progress Notes Filed: 03/18/2018 2:43 PM [...] PA-C CNOV Observed: 03/18/2018 Status: COMPLETED Source: [place] 2:20 PM [facility] REPOSITORY Office Visit (FAMPWS) ARMAAN GUTHRIE ([id number]) 1955 M [facility] Date Time Provider Department 03/18/18 2:20 [...] comorbidity) [E6*INVALID FOR* Pulmonary hypertension, secondary (HCC) [MWD158*INVALID FOR* Varicose vein of leg [I83.90] INVALID [...] F Source: [place] PROFILE (BMP) 12:21 PM [facility] [place] TYPE CODE TESTS RESULT OUT OF [...] GAP 6 Performed By: #### L500.2500 #### [facility] [address] [place] [address]. [place], [address] PROGRESS Observed: 12/26/2017 Status: COMPLETED Source: [place] 9:34 AM [facility] REPOSITORY HNO ID: [id number] Author: Martin Garsia Service: (none) Author Type: Physician Batter Depositor Type: Progress Notes Filed: 12/26/2017 11:42 AM [...] - Herpes simplex type 2 infection - [place] (hard of hearing) 09/08/2015 - Inguinal hernia [...] - FLUTICASONE 50 MCG/ACTUATION NASAL SPRAY,SUSPENSION - WDVMFCFV-MMEXWXXYZ-UEYSBFTHL 3.5 MG-10,000 UNIT/ML-1 % EAR DROPS,SUSP 2. Diarrhea, unspecified type - ICD9: 787.91, ICD10: R19.7 F/u with IM, CT scheduled for next week. Schedule for f/u with GI as well. Reviewed red flags and when to seek care sooner. Marston/BRAT diet. - C. DIFFICILE PCR - ENTERIC [...] 12/26/2017 CNOV Observed: 12/26/2017 Status: COMPLETED Source: [place] 9:15 AM [facility] REPOSITORY Office Visit (UCWSTR) ARMAAN GUTHRIE ([id number]) 1955 M [facility] Date Time Provider Department 12/26/17 9:15 [...] extremity 04/02/2016 - CHF (congestive heart failure) ([facility]) - Detached retina 12/26/20142001 he had a surgery done. - Diverticulosis of colon (without mention of hemorrhage) Diverticulosis. 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 Diarrhea, unspecified type - ICD9: 787.91, ICD10: R19.7 F/u with IM, CT scheduled for next week. Schedule for f/u with GI as well. Reviewed red flags and when to seek care sooner. [place]ston/BRAT diet. - C. DIFFICILE PCR - ENTERIC [...] Rinse mouth after use.Disp: 1 BottleRfl: 0 wvuveacd-cxiicosjs-uzackkeysznzya (CORTISPORIN) 3.5-10,000-1 mg/mL-unit/mL-% otic suspensionUse 3 Drops in the right ear four times daily for 7 days.Disp: 1 BottleRfl: 0 C. DIFFICILE PCR [SQCDPCR] Order #: [id number] ENTERIC BACTERIAL PANEL BY PCR [SQSTLPCR] Order #: [id number] FUTURE CBC + DIFF [SQCBCDIF] Order #: [id number] FUTURE COMP METABOLIC PANEL [SQCMP] Order #: [id number] FUTURE CONSULT TO GASTROENTEROLOGY [9010] Order #: [id number]: 1 Prescriptions as of 12/26/2017 Sig: ASPIRIN [...] Use 2 Sprays in each nostril * VKGAHLTM-BDEIGDDGX-ESQHSHQXA * Use 3 Drops in the right [...] comorbidity) [E6*INVALID FOR* Pulmonary hypertension, secondary (HCC) [FRM478*INVALID FOR* Varicose vein of leg [I83.90] INVALID FOR* More... Prescriptions ordered this encounter Disp Refills Start End FLUTICASONE 50 MCG/ACTUATION NASAL S* 1 Omkar* 0 12/26/2017 Route: EACH NOSTRIL Sig: Use 2 Sprays in each nostril once daily. Rinse mouth after use. ESJOQSAO-LZQQVJTZG-JZLNNFXJL 3.5 MG-* 1 Omkar* 0 12/26/2017 01/02/2018 Route: RIGHT EAR Sig: Use 3 Drops in the right ear four times daily for 7 days. Encounter Status:Closed by MARTIN GARSIA PA-C on 12/26/17 CNOV Observed: 12/23/2017 Status: COMPLETED Source: [place] 12:20 PM [facility] REPOSITORY Office Visit (INTMWS) ARMAAN GUTHRIE ([id number]) 1955 M [facility] Date Time Provider Department 12/23/17 12:20 [...] - Herpes simplex type 2 infection - [place] (hard of hearing) 09/08/2015 - Inguinal hernia - Left ventricular hypertrophy 03/24/2014 Echo 2012 showed left ventricular hyperterophy - Obesity, unspecified - Other anxiety states - Panic disorder without agoraphobia 07/06/2005 - Primary insomnia 11/21/2015 - SCC (squamous cell carcinoma), lip 11/15/2014 - Snoring - SOB (shortness of breath) 04/25/2014 - Social phobia with panic attacks - Stroke ([facility]) - Syphilis - [place]REM[place] N[place] 07/06/2005 - Unspecified hemorrhoids without mention of complication Hemorrhoids PAST SURGICAL HISTORY Procedure Laterality Date - COLONOSCOP W/ OR W/O [facility] SPEC 10/26/13 Repeat 2023 - COLONOSCOP W/ OR W/O [facility] SPEC 08/11/15 Colonoscopy - COLONOSCOPY 11/27/01 - [...] 5.6 4.0 - 6.0 % Final Comment: [employer] Diabetes [employer] guidelines indicate that patients with [...] and agreed with the plan. Noman Allen APRN.TOOL AND DIE DESIGNER Referring Provider: SELF [200] Allergies As of [...] abdominal pain [R10.31] Order(s):CT ABD/PEL WO IVCON [5166043] Order #: [id number] FUTURE enteric contrast (radiology procedure)Take 1 Each by mouth one time only for [address] ABD/PEL WO Routine order Administer, As Directed One Time Only, via Oral, Rectal, both Oral and Rectal, Enteric Tube, Stoma or Indwelling Catheter, Enteric Contrast as designated per enteric contrast guidelinesDisp: 1 EachRfl: 0 CONSULT TO GENERAL SURGERY [9011] Order #: [id number]: 1 Prescriptions as of 12/23/2017 Sig: ENTERIC [...] comorbidity) [E6*INVALID FOR* Pulmonary hypertension, secondary (HCC) [IAX214*INVALID FOR* Varicose vein of leg [I83.90] INVALID [...] per enteric contrast guidelines Encounter Status:Closed by NMOAN YIP on 12/23/17 PROGRESS Observed: 12/23/2017 Status: COMPLETED Source: [place] 11:48 AM [facility] [place] REPOSIT[facility] O ID: [id number] Author: Noman Templeton) JUDY Allen Service: (none) [...] - Herpes simplex type 2 infection - [place] (hard of hearing) 09/08/2015 - Inguinal hernia [...] 5.6 4.0 - 6.0 % Final Comment: British Diabetes [employer] guidelines indicate that patients with HgbA1c in the range 5.7-6.4% are at increased risk for development of diabetes, and intervention by lifestyle modification may be beneficial. HgbA1c greater or equal to 6.5% is considered diagnostic of diabetes. HBA1C, [place] Date Value Ref Range Status 12/04/2010 5.6 [...] and agreed with the plan. Noman Allen APRN.TOOL AND DIE DESIGNER LIVER PROFILE Collected: 12/12/2017 Status: F Source: [place] 8:41 AM [facility] [place] CODE TESTS RESULT OUT OF [...] BILI Performed By: #### L500.3400, L500.4100 #### [facility] [address] [facility] [place], [place], [address] LIPID PROFILE Collected: 12/12/2017 Status: F Source: [place] 8:41 AM [facility] [place] TYPE CODE TESTS RESULT OUT OF [...] 16 Performed By: #### L500.3400, L500.4100 #### [facility] [address] [place], [place], [address] THYROID STIM HORMONE Collected: 12/12/2017 Status: F Source: [place] (TSH) 8:38 AM [facility] [place] TYPE CODE TESTS RESULT OUT OF RANGE REFERENCE UNITS LAB L501.9520 0.358-3.74 uIU/mL Normal TSH 1.26 Performed By: #### L501.9520, L506.0400 #### [facility] [address] [facility] [place], [place], [address] T4 FREE DIRECT Collected: 12/12/2017 Status: F Source: [place] 8:38 AM [facility] [place] TYPE CODE TESTS RESULT OUT OF RANGE REFERENCE UNITS LAB L506.0400 0.76-1.46 ng/dL Normal T4 FREE 1.40 DIRECT Performed By: #### L501.9520, L506.0400 #### [facility] [address] [place], [address] CARDIOLOGY VISIT Observed: 12/11/2017 Status: F Source: [place] REPORT 1:59 PM [facility] [place] [facility] [address] [place] [address] OFFICE VISIT Date of Service: 12/11/17 MR#: [id number] Acct: [id number] Name: ARMAAN GUTHRIE Rep #: [id number] : 1955 Provider: ALISA Marsh Age/Sex: 62/M Location: [facility] Status: Signed HPI HPI Details: ARMAAN GUTHRIE, [...] brachial Intake Visit Reasons: 3 M FU Finance Clerk Required: No Accompanied by: None Is patient [...] AND Plan 1. Coronary artery disease involving [place] coronary artery of [place] heart without angina pectoris I25.10 ROBERT Talavera [...] vis,est,level 3 Diagnoses Coronary artery disease involving [place] coronary artery of [place] heart without angina pectoris I25.10 Coronary Disease-Associated Artery/Lesion type: [place] artery [place] vs. transplanted heart: [place] heart Associated angina: without angina Paroxysmal atrial [...] vis,est,level 3 Diagnoses Coronary artery disease involving [place] coronary artery of [place] heart without angina pectoris I25.10 Coronary Disease-Associated Artery/Lesion type: [place] artery [place] vs. transplanted heart: [place] heart Associated angina: without angina Paroxysmal atrial [...] Status: F Source: [place] EXTREMITY 8:33 AM [facility] [place] [facility] Cardiovascular Services [address] [place] [address] Venous Duplex US, Unilateral 11/28/17 1425 MR#: [id number] Acct: [id number] Name: ARMAAN GUTHRIE Rep #: [id number] : 1955 62 From: Frank Valle MD [...] called and/or faxed to Dr. He @ [phone] @ 3:00 pm. Interpretation Summary Deep veins [...] Date Dictated: 11/28/17 1425 Date Transcribed: 11/30/17831 Percussion Instrument Tuner: Signed OPERATIVE REPORT Observed: 11/26/2017 Status: F Source: [place] 8:05 AM [facility] [place] [facility] Medical Records Department [address] [place] [address] Operative Report 11/26/17 0759 MR#: [id number] Acct: [id number] Name: ARMAAN GUTHRIE Rep #: [id number] : 1955 62 From: Armaan He MD PCP: Baldemar Brink MD Status: REG [facility] Location: [place] [address] Report of Operation Date of Procedure: 11/26/17 Pre-Operative Diagnosis: Right knee medial meniscus tear. Right knee possible lateral meniscus tear. Right knee chondromalacia Post-Operative Diagnosis: Right knee medial meniscus tear. Right knee chondromalac Surgery/Procedure Performed:: 1. Right knee arthroscopic partial medial meniscectomy. 2. 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 Patient presented [...] - Herpes simplex type 2 infection - [place] (hard of hearing) 09/08/2015 - Inguinal hernia [...] Repeat 2023 - COLONOSCOP W/ OR W/O [facility] SPEC 08/11/15 Colonoscopy - COLONOSCOPY 11/27/01 - [...] AND PHYSICAL Observed: 11/14/2017 Status: F Source: [place] EXAM 1:01 PM [facility] [place] [facility] Medical Records Department [address] [place] [address] History and Physical 11/14/17 1252 MR#: [id number] Acct: [id number] Name: ARMAAN GUTHRIE Rep #: [id number] : 1955 62 From: Marcos Rausch PA-C [...] in atrial fibrillation. Patient was referred to assistant merchandiser. Patient underwent echocardiogram as well as cardioversion. [...] recently was changed to Xarelto by the assistant merchandiser. The patient also has been treated for superficial blood clot with Eliquis which was stopped preoperatively. Patient did have a another Doppler ultrasound which did show partial occlusion. Quality Assurance Supervisor Chassis did recommend anticoagulation per his primary care [...] Surgical Hx: Hernia Repair - (2012) X2 [facility] Dettached Retina - (2000) [facility] Ear Surgery X2 - LT [facility] Hemmorroid Cardioversion - X2 Anesthesia Complications: [...] Patient has has obtained surgical clearance from assistant merchandiser. We will be obtaining anticoagulation recommendations per [...] DISCHARGE INSTRUCTION Observed: 11/11/2017 Status: F Source: [place] 2:02 PM [facility] [place] [facility] Medical Records Department [address] [place] [address] [place] [address] Discharge Instruction 11/11/17 1401 MR#: [id number] Acct: [id number] Name: ARMAAN GUTRHIE Rep #: [id number] : 1955 62 From: Aleida Decker DO [...] your Primary Care Provider. Call [facility] ([phone]) or report to the closest Emergency Room. Call 911 if necessary. 11/11/17 1402 <Electronically signed by Aleida Decker DO> Date Aleida Decker DO Cosigner Signature (If Indicated): Date CC: Baldemar Brink MD EMERGENCY DEPARTMENT Observed: 11/11/2017 Status: F Source: [place] SUMMARY 2:01 PM [facility] [place] [facility] Medical Records Department [address] [place] [address] Emergency Department Summary 11/11/17 1358 MR#: [id number] Acct: [id number] Name: ARMAAN GUTHRIE Rep #: [id number] : 1955 62 From: Aleida Decker DO [...] eighth ribs] This note was generated with [employer] software. It may contain incorrect words, spelling, [...] your Primary Care Provider. Call [facility] ([phone]) or report to the closest Emergency Room. Call 911 if necessary. 11/11/17 1401 <Electronically signed by Aleida Decker DO> Date Aleida Decker DO Cosigner Signature (If Indicated): Date CC: Baldemar Brikn MD RIBS UNI MIN 3V Observed: 11/11/2017 Status: F Source: [place] W/PA CHEST 12:47 PM [facility] [place] [facility] Imaging Services [address] [place] [address] Ribs Uni Min 3V w/PA Chest MR#: [id number] Acct: [id number] Name: ARMAAN GUTHRIE Rep #: [id number] : 1955 M 62 From: Duke Duran MD PCP: Baldemar Brink MD Status: REG ER Study: Ribs Uni Min 3V w/PA Chest Date of Exam: 11/11/17 Exam# [id number] Ordering Dr: Aleida Decker DO STUDY: X-RAY [...] Duke Duran MD at 13:30 EST Tel [phone], Service support , CC: Baldemar Brink MD; Aleida Decker DO Percussion Instrument Tuner: Signed VENOUS DUPLEX LOWER Observed: 11/04/2017 Status: F Source: [place] EXTREMITY 2:10 PM [facility] [place] [facility] Cardiovascular Services [address] [place] [address] Venous Duplex US, Unilateral 10/31/17 1258 MR#: [id number] Acct: [id number] Name: ARMAAN GUTHRIE Rep #: [id number] : 1955 62 From: Frank Valle MD [...] Dictated: 10/31/17 1258 Date Transcribed: 11/04/17 1409 Percussion Instrument Tuner: Signed PROGRESS Observed: 11/04/2017 Status: COMPLETED Source: [place] 11:19 AM [facility] REPOSITORY [facility] ID: [id number] Author: Cindy Richardson (Pa) Service: (none) Author Type: Physician Batter Depositor Type: Progress Notes Filed: 11/04/2017 4:01 PM Note Text: [facility] PATIENT INFO: Armaan Guthrie 62 year old [...] - Herpes simplex type 2 infection - [place] (hard of hearing) 09/08/2015 - Inguinal hernia [...] or problems. No history of angina, CHF, NH, cardiac surgery of stents. Respiratory: Negative for [...] problems. Neurologic: No history of TIA's, stroke, TOOL AND DIE DESIGNER tumor, impaired sensorium, hemiplegia, paraplegia or quadriplegia. [...] PAVanessa GROSS Observed: 11/04/2017 Status: COMPLETED Source: [place] 11:00 AM [facility] REPOSITORY Office Visit (UROLWS) ARMAAN GUTHRIE ([id number]) 1955 M [facility] Date Time Provider Department 11/04/17 11:00 AM CINDY RICHARDSON) UROLWS During your visit today, we recorded the following information about you: Blood pressure Weight Height 120/80 129 kg 1.829 m ROBERTO Lowe 11/04/2017 4:01 PM Signed [facility] PATIENT INFO: Armaan Guthrie 62 year old PCP: BALDEMAR BRINK MD Referred by: BLADEMAR BRINK MD CHIEF COMPLAINT: Urinary Frequency HPI: [...] - Herpes simplex type 2 infection - [place] (hard of hearing) 09/08/2015 - Inguinal hernia [...] or problems. No history of angina, CHF, NH, cardiac surgery of stents. Respiratory: Negative for [...] problems. Neurologic: No history of TIA's, stroke, TOOL AND DIE DESIGNER tumor, impaired sensorium, hemiplegia, paraplegia or quadriplegia. [...] Diagnosis:Urinary frequency [R35.0] Order(s):UA DIP, URINE (POC) [[id number]] Order #: [id number]. #:[id number] oxybutynin (DITROPAN) 5 mg tabletTake 1 tablet [...] comorbidity) [E6*INVALID FOR* Pulmonary hypertension, secondary (HCC) [HOX947*INVALID FOR* Varicose vein of leg [I83.90] INVALID [...] SEVERITY SOURCE 10/13/2018 Drug hydrocodone Rash Unknown [place] Allergy/416 bitartrate/[id number] [place] [address]([place] [address]([facility] ED CT) Repository 10/13/2018 Drug cefuroxime Rash Unknown [place] Allergy/416 axetil/[id number]( [place] [address] ED CT) Repository 10/13/2018 Drug Penicillins/N00172 Hives Unknown [place] Allergy/416 0476(RXNORM) [place] [address]([facility] ED CT) Repository 10/13/2018 Drug lisinopril/I519543 Other Unknown [place] Allergy/416 658(RXNORM) [place] [address]([facility] ED CT) Repository 10/13/2018 Drug carvedilol/V100166 Other Unknown [place] Allergy/416 167(RXNORM) [place] [address]([facility] ED CT) Repository 11/02/2013 DRUG LISINOPRIL COUGH [facility] INGREDI/[address] [place] 296810(SNOM Repository ED CT) 07/01/2005 DRUG CEFUROXIME RASH [facility] INGREDI/[address] [place] 178924(SNOM Repository ED CT) 07/01/2005 Drug PENICILLINS HIVES [facility] Class/14622 [address] [place] 1003(SNOMED Repository CT) 07/01/2005 DRUG/111667 HYDROCODONE-ACETAM RASH [facility] 003(SNOMED INOPHEN [address] [place] CT) Repository ENCOUNTERS ENCOUNTERS ADMIT/DISCHARGE ACCOUNT NUMBER ADMITTING ENCOUNTER LOCATION SOURCE CLASS 10/21/2018/10/21/19 [id number] Ambulatory [address] [place] Repository 10/21/2018/10/22/19 [id number] Ambulatory [address] Repository 10/13/2018/10/13/19 [id number] Ambulatory BMSBuilding: [place] 19 BMS.[facility] Repository 10/01/2018/10/01/20 [id number] Ambulatory [address] [place] Repository 10/01/2018/10/01/20 [id number] Ambulatory [address] Repository 10/01/2018/10/04/20 [id number] Ambulatory [address] Repository 09/24/2018 [id number] Ambulatory BMSBuilding: [facility] Repository 09/22/2018 [id number] Ambulatory [facility] ding:PSN Repository 09/19/2018/09/19/20 [id number] Emergency [address] ding:ED Repository 09/17/2018 [id number] Ambulatory [facility] ding:LAB Repository 09/08/2018/09/08/20 [id number] Ambulatory BMSBuilding: [place] 18 BMS.[facility] Repository 08/20/2018 [id number] Ambulatory [facility] ding:LAB Repository 08/16/2018 [id number] Ambulatory BMSBuilding: [facility] Repository 08/14/2018 [id number] Ambulatory [facility] ding:[facility] Repository 08/14/2018 [id number] Ambulatory BMSBuilding: [place] [facility] Repository 08/13/2018/08/13/20 [id number] Emergency [address] ding:ED Repository 07/31/2018 [id number] Ambulatory [facility] ding:LAB Repository 07/31/2018/07/31/20 [id number] Ambulatory BMSBuilding: [place] 18 BMS.[facility] Repository 07/21/2018 [id number] Ambulatory [facility] Repository 07/08/2018/07/10/20 [id number] Ambulatory [address] Repository 06/02/2018 [id number] Ambulatory [facility] ding:RAD Repository 05/08/2018/05/08/20 [id number] Ambulatory BMSBuilding: [place] 18 BMS.[facility] Repository 05/07/2018 [id number] Ambulatory BMSBuilding: [place] BMS.[facility] Repository 05/05/2018/05/05/20 [id number] Ambulatory BMSBuilding: [place] 18 [facility] Repository 05/05/2018/05/05/20 [id number] Ambulatory BMSBuilding: [place] 18 [facility] Repository 05/04/2018/05/05/20 [id number] [facility] Ambulatory [address] ding:PCURoom Repository : [id number]: 1 05/04/2018 [id number] Ilia Ambulatory BMSBuilding: [place] Zach BMS.[facility] Repository 05/04/2018 [id number] Ambulatory BMSBuilding: [place] BMS.[facility] Repository 04/20/2018 [id number] Ambulatory [facility] ding:LAB Repository 03/18/2018/03/20/20 [id number] Ambulatory [address] Repository 02/03/2018 [id number] Ambulatory [facility] ding:LAB Repository 12/26/2017/12/30/19 [id number] Ambulatory [address] Repository 12/23/2017/12/24/19 [id number] Ambulatory [address] Repository 12/12/2017 [id number] Ambulatory [facility] ding:LAB Repository 12/11/2017/12/12/19 [id number] Ambulatory BMSBuilding: [place] 18 BMS.[facility] Repository 12/02/2017 [id number] Ambulatory BMSBuilding: [place] BMS.[facility] Repository 12/02/2017 [id number] Ambulatory BMSBuilding: [place] BMS.[facility] Repository 11/28/2017 [id number] Ambulatory [facility] ding:CVS Repository 11/26/2017/11/26/19 [id number] Ambulatory [address] ding:SDC Repository 11/17/2017/11/17/19 [id number] Ambulatory [address] Repository 11/11/2017/11/11/19 [id number] Emergency [place] ding:ED Repository 11/06/2017 [id number] Ambulatory [facility] ding:PSN Repository 11/04/2017/11/13/19 [id number] Ambulatory [address] Repository 10/31/2017 [id number] Ambulatory [facility] ding:CVS Repository PAYERS PAYERS ENCOUNTER GUARANTOR PAYER SUBSCRIBER SOURCE 10/13/2018 ARMAAN Rose Primary ARMAAN [place] [id number] Insurance:LUCERO DONOVAN: [facility] [id number]: Repository [id number]: (448) [id number] [phone] () Date:5839-00-07ZX[address] [address]MJ: 10/13/2018 Secondary NOT GIVENUNK [place] Insurance:SELF PAY [facility] Number: Effective Repository Date:2018-10-09 09/24/2018 ARMAAN Rose Primary ARMAAN [place] [id number] Insurance:LUCERO CHRISTIAN: [facility] [id number] [place] PLANPolicy Number: Repository [id number]: 330 [id number] [phone] (HP) Date:5194-04-27WI [address] [place] [address] 47118KV: 09/24/2018 Secondary NOT GIVENUNK [place] Insurance:SELF PAY [facility] Number: Effective Repository Date:2018-09-24 09/22/2018 ARMAAN E Primary ARMAAN Rose [place] [id number] Insurance:LUCERO CHRISTIANB: [facility] [id number] Health Physicians' Specialty HospitalPolicy Number: Repository [id number]: 330 [id number] [phone] () Date:9885-28-56SC [address] [place] [address] 41790NV: 09/22/2018 Secondary NOT GIVENUNK [place] Insurance:SELF PAY [facility] Number: Effective Repository Date:2018-09-08 09/19/2018 ARMAAN E Primary ARMAAN Rose [place] [id number] Insurance:LUCERO CHRISTIANB: [facility] [id number] Health Physicians' Specialty HospitalPolicy Number: Repository [id number]: 330 [id number] [phone] () Date:9184-37-24QG [address] [place] [address] 22069OX: 09/19/2018 Secondary NOT GIVENUNK [place] Insurance:SELF PAY [facility] Number: Effective Repository Date:2018-09-19 09/17/2018 ARMAAN E Primary ARMAAN Rose [place] [id number] Insurance:LUCERO CHRISTIANB: [facility] [id number] Health Physicians' Specialty HospitalPolicy Number: Repository [id number]: 330 [id number] [phone] () Date:8578-65-77GW [address] [place] [address] 08186OF: 09/17/2018 Secondary NOT GIVENUNK [place] Insurance:SELF PAY [facility] Number: Effective Repository Date:2018-09-17 09/08/2018 ARMAAN Rose Primary ARMAAN Rose [place] [id number] Insurance:LUCERO DONOVAN: [place] 783067-10-30[facility] Number: Repository [id number]: 330 [id number] [phone] () Date:1615-70-84EO [address] [place] [address] 02839DO: 09/08/2018 Secondary NOT GIVENUNK [place] Insurance:SELF PAY [facility] Number: Effective Repository Date:2018-09-07 08/20/2018 ARMAAN Rose Primary ARMAAN Rose [place] [id number] Insurance:LUCERO DONOVAN: [facility] [id number] Hospital Number: Repository 67122Eex: 330 [id number] [phone] (HP) Date:3128-37-24CY [address] [place] [address] 31863XU: 08/20/2018 Secondary NOT GIVENUNK [place] Insurance:SELF PAY [facility] Number: Effective Repository Date:2018-08-20 08/16/2018 ARMAAN Rose Primary ARMAAN Rose [place] [id number] Insurance:LUCERO DONOVAN: [address]10-30[facility] Number: Repository 11777Yoa: 330 [id number] [phone] (HP) Date:5236-68-45FW [address] [place] [address] 98410XY: 08/16/2018 Secondary NOT GIVENUNK [place] Insurance:SELF PAY [facility] Number: Effective Repository Date:2018-08-16 08/14/2018 ARMAAN Rose Primary ARMAAN Rose [place] [id number] Insurance:LUCERO DONOVAN: [address]10-30[facility] Number: Repository [id number]: 330 [id number] [phone] (HP) Date:0082-94-74EG [address] [place] [address] 79598SW: 08/14/2018 Secondary NOT GIVENUNK [place] Insurance:SELF PAY [facility] Number: Effective Repository Date:2018-07-31 08/14/2018 ARMAAN Rose Primary ARMAAN Rose [place] [id number] Insurance:LUCERO CHRISTIANB: [facility] [id number] Hospital Number: Repository 40603Bhl: 330 [id number] [phone] () Date:4551-35-90YT [address] [place] [address] 35852IN: 08/14/2018 Secondary NOT GIVENUNK [place] Insurance:SELF PAY [facility] Number: Effective Repository Date:2018-08-14 08/13/2018 ARMAAN Rose Primary ARMAAN Rose [place] [id number] Insurance:LUCERO CHRISTIANB: [facility] 1976-07-36KUVRegency Hospital Number: Repository [id number]: 330 [id number] [phone] () Date:2952-99-29GX [address] [place] [address] 05722WY: 08/13/2018 Secondary NOT GIVENUNK [place] Insurance:SELF PAY [facility] Number: Effective Repository Date:2018-08-13 07/31/2018 ARMAAN Rose Primary ARMAAN Rose [place] [id number] Insurance:LUCERO CHRISTIANB: [facility] [id number] Hospital Number: Repository [id number]: 330 [id number] [phone] () Date:4495-52-36JC [address] [place] [address] 57537RK: 07/31/2018 Secondary NOT GIVENUNK [place] Insurance:SELF PAY [facility] Number: Effective Repository Date:2018-07-31 07/31/2018 ARMAAN E Primary ARMAAN Wood[place] [id number] Insurance:LUCERO CHRISTIANB: [facility] [id number] [place] PLANPolicy Number: Repository 18139Lla: 330 [id number] [phone] (HP) Date:4371-63-10YJ [address] [place] [address] 68206IF: 07/31/2018 Secondary NOT GIVENUNK [place] Insurance:SELF PAY [facility] Number: Effective Repository Date:2018-07-28 07/21/2018 Armaan E [facility]:Bette ChristianB: [facility] Number: Effective [id number] Repository [facility] Date: [place], [place] [address]Wuj: () 06/02/2018 ARMAAN E Primary ARMAAN Rose [place] [id number] Insurance:LUCERO CHRISTIANB: [facility] [id number] [place] PLANPolicy Number: Repository 57473Kjs: 330 [id number] [phone] (HP) Date:6449-75-91LG [address] [place] [address] 02404QI: 06/02/2018 Secondary NOT GIVENUNK [place] Insurance:SELF PAY [facility] Number: Effective Repository Date:2018-05-29 05/08/2018 ARMAAN E Primary ARMAAN Rose [place] [id number] Insurance:LUCERO GUTHRIEDOB: [facility] [id number] Health Physicians' Specialty HospitalPolicy Number: Repository 45277Qae: 330 [id number] [phone] (HP) Date:0251-07-78LS [address] [place] [address] 29669FA: 05/08/2018 Secondary NOT GIVENUNK [place] Insurance:SELF PAY [facility] Number: Effective Repository Date:2018-05-08 05/07/2018 ARMAAN E Primary ARMAAN Rose [place] [id number] Insurance:LUCERO DONOVAN: [facility] [id number] Hospital Number: Repository 28909Mdm: 330 [id number] [phone] (HP) Date:0592-35-76ON [address] [place] [address] 36751JQ: 05/07/2018 Secondary NOT GIVENUNK [place] Insurance:SELF PAY [facility] Number: Effective Repository Date:2018-05-07 05/05/2018 ARMAAN Rose Primary ARMAAN Rose [place] [id number] Insurance:LUCERO CHRISTIANB: [address]10-30[facility] Number: Repository 20038Twm: 330 [id number] [phone] (HP) Date:0127-63-13ES [address] [place] [address] 81729JM: 05/05/2018 Secondary NOT GIVENUNK [place] Insurance:SELF PAY [facility] Number: Effective Repository Date:2018-05-05 05/05/2018 ARMAAN Rose Primary ARMAAN Rose [place] [id number] Insurance:LUCERO CHRISTIANB: [address]10-30[facility] Number: Repository 52104Zgv: 330 [id number] [phone] (HP) Date:6088-25-83EG [address] [place] [address] 53264DA: 05/05/2018 Secondary NOT GIVENUNK [place] Insurance:SELF PAY [facility] Number: Effective Repository Date:2018-05-05 05/04/2018 ARMAAN Rose Primary ARMAAN Rose [place] [id number] Insurance:LUCERO DONOVAN: [place] 783067-10-30[facility] Number: Repository 91610Drm: 330 [id number] [phone] (HP) Date:5939-45-46QC [address] [place] [address] 80084BJ: 05/04/2018 Secondary NOT GIVENUNK [place] Insurance:SELF PAY [facility] Number: Effective Repository Date:2018-05-04 05/04/2018 ARMAAN Rose Primary ARMAAN Rose [place] [id number] Insurance:LUCERO DONOVAN: [facility] [id number] Hospital Number: Repository 00063Lst: 330 [id number] [phone] () Date:3287-30-39GD [address] [place] [address] 46243BU: 05/04/2018 Secondary NOT GIVENUNK [place] Insurance:SELF PAY [facility] Number: Effective Repository Date:2018-05-04 05/04/2018 ARMAAN Rose Primary ARMAAN Rose [place] [id number] Insurance:LUCERO CHRISTIANB: [facility] [id number] Hospital Number: Repository 37994Uhy: 330 [id number] [phone] () Date:6372-99-22AB [address] [place] [address] 40831NS: 05/04/2018 Secondary NOT GIVENUNK [place] Insurance:SELF PAY [facility] Number: Effective Repository Date:2018-05-04 04/20/2018 ARMAAN Rose Primary ARMAAN Milton [place] [id number] Insurance:LUCERO CHRISTIANB: [facility] [id number] Hospital Number: Repository 87282Bsc: 330 [id number] [phone] () Date:6758-87-10UM [address] [place] [address] 54215OG: 04/20/2018 Secondary NOT GIVENUNK [place] Insurance:SELF PAY [facility] Number: Effective Repository Date:2018-04-20 02/03/2018 ARMAAN Rose Primary ARMAAN E [place] [id number] Insurance:LUCERO CHRISTIANB: [facility] [id number] Health Physicians' Specialty HospitalPolicy Number: Repository [id number]: [id number] [phone] Date:6420-86-98FD [address] (HP) [address] [place] [address] 49755VG: 02/03/2018 Secondary NOT GIVENUNK [place] Insurance:SELF PAY [facility] Number: Effective Repository Date:2018-02-03 12/12/2017 ARMAAN E Primary ARMAAN Rose [place] [id number] Insurance:LUCERO CHRISTIANB: [facility] [id number] Health Physicians' Specialty HospitalPolicy Number: Repository [id number]: [id number] [phone] Date:8855-43-54JI [address] (HP) [address] [place] [address] 19351YB: 12/12/2017 Secondary NOT GIVENUNK [place] Insurance:SELF PAY [facility] Number: Effective Repository Date:2017-12-12 12/11/2017 ARMAAN E Primary ARMAAN Rose [place] [id number] Insurance:LUCERO CHRISTIANB: [facility] [id number] Hospital Number: Repository [id number]: [id number] [phone] Date:1074-45-38NQ [address] (HP) [address] [place] [address] 46008IW: 12/11/2017 Secondary NOT GIVENUNK [place] Insurance:SELF PAY [facility] Number: Effective Repository Date:2017-09-12 12/02/2017 ARMAAN E Primary ARMAAN Rose [place] [id number] Insurance:LUCERO CHRISTIANB: [address]10-30[facility] Number: Repository 90052Jxm: 330 [id number] [phone] (HP) Date:0070-73-73XY [address] [place] [address] 31527RT: 12/02/2017 Secondary NOT GIVENUNK [place] Insurance:SELF PAY [facility] Number: Effective Repository Date:2017-10-17 12/02/2017 ARMAAN Rose Primary ARMAAN [place] [id number] Insurance:LUCERO DONOVAN: [facility] [id number] Hospital Number: Repository 54021Hmj: [id number] [phone] Date:8061-85-47ZI [address] (HP) [address], [place] [address]HG: 12/02/2017 Secondary NOT GIVENUNK [place] Insurance:SELF PAY [facility] Number: Effective Repository Date:2017-11-03 11/28/2017 ARMAAN Rose Primary ARMAAN Rose [place] [id number] Insurance:DANOMilton CHRISTIAN: [facility] [id number] Hospital Number: Repository 91935Uok: [id number] [phone] Date:9109-75-83FV [address] (HP) [address] [place] [address] 22897RN: 11/28/2017 Secondary NOT GIVENUNK [place] Insurance:SELF PAY [facility] Number: Effective Repository Date:2017-11-28 11/26/2017 ARMAAN Rose Primary ARMAAN Rose [place] [id number] Insurance:LUCERO DONOVAN: [facility] [id number] Hospital Number: Repository 53626Hgq: [id number] [phone] Date:8403-99-50RA [address] (HP) [address] [address]IR: 11/26/2017 Secondary NOT GIVENUNK [place] Insurance:SELF PAY [facility] Number: Effective Repository Date:2017-11-05 11/11/2017 ARMAAN Milton Primary ARMAAN Rose [place] [id number] Insurance:LUCERO CHRISTIANB: [facility] [id number] Hospital Number: Repository 13141Keg: [id number] [phone] Date:1006-07-23QH [address] (HP) [address] [place] [address] [place] [address]AK: 11/11/2017 Secondary NOT GIVENUNK [place] Insurance:SELF PAY [facility] Number: Effective Repository Date:2017-11-11 11/06/2017 ARMAAN E Primary ARMAAN Wood[place] [id number] Insurance:LUCERO CHRISTIANB: [facility] [id number] Health Physicians' Specialty HospitalPolicy Number: Repository [id number]: 330 [id number] [phone] (HP) Date:6752-19-23ZF [address] [place] [address] 97587GE: 11/06/2017 Secondary NOT GIVENUNK [place] Insurance:SELF PAY [facility] Number: Effective Repository Date:2017-10-17 10/31/2017 ARMAAN Rose Primary ARMAAN [place] [id number] Insurance:LUCERO DONOVAN: [facility] [id number] Hospital Number: Repository 67442Ncz: 330 [id number] [phone] (HP) Date:0206-20-73OH [address] [place] [address] 40762RH: 10/31/2017 Secondary NOT GIVENUNK [place] Insurance:SELF PAY [facility] Number: Effective Repository Date:2017-10-27
== END ==
PROVIDERS: Family Provider Internal Medicine; PCP Internal Medicine; Referring Provider Internal Medicine Critical Care Medicine; Visit Provider Internal Medicine Critical Care Medicine
DX: R06.02 Shortness of breath (principal); R06.00 Dyspnea, unspecified; R06.01 Orthopnea; I42.8 Other cardiomyopathies
CPT/HCPCS: 94618

== ENCOUNTER 2018-11-03 08:12 | Emergency (ER) | payer MEDICAID, SELFPAY ==
[2018-10-13 07:54] VITALS: BMI 40.7
[2018-11-03 08:13] VITALS: BP 152/84; PULSE 64; RESP 16; TEMP 36.5; O2SAT 95; BMI 40.6
--- NOTE | 2018-11-03 08:15 | CT_ITS ---
STUDY: CT CHEST WITHOUT CONTRAST REASON FOR EXAM: Male, 63 years old. Left shoulder pain following a fall. RADIATION DOSAGE (If Supplied By Facility): CTDIvol = ( 27.86 ) mGy, DLP = ( 1197.07 ) mGycm TECHNIQUE: Transaxial imaging was performed without the administration of intravenous contrast material. Multiplanar coronal and sagittal images were reformatted. Individualized dose optimization techniques were used for this CT. COMPARISON: None. FINDINGS: Bullous changes seen in the anterior aspect of the lingular segment of the left upper lobe. Interstitial scarring is seen in both lower lobes as well as in the lateral aspect of the upper lobes. Mild thickening of the right major fissure. Small bilateral pleural effusions. There are calcifications of the coronary arteries. Multiple small mediastinal lymph nodes. The largest is in the right paratracheal region measuring 2.4 cm. Normal hilar regions. Normal unenhanced pulmonary arteries. There is atherosclerotic calcification of the aortic arch . There are degenerative changes of the thoracic spine. Hiatal hernia. Small gallstones. Small amount of the perihepatic fluid. CT/Chest without Contrast IMPRESSION: Small bilateral pleural effusions. Findings suggestive of a scarring. Mildly enlarged mediastinal lymph nodes. Multiple small gallstones. Small amount of perihepatic fluid. Electronically Signed: Duke Duran MD at 9:20 EST , Service support ,
--- NOTE | 2018-11-03 08:15 | CT_ITS ---
STUDY: CT BRAIN WITHOUT CONTRAST REASON FOR EXAM: Male, 63 years old. Head injury due to a fall. RADIATION DOSAGE (If Supplied By Facility): CTDIvol = ( 44.99 ) mGy, DLP = ( 880.47 ) mGycm TECHNIQUE: Transaxial CT imaging of the brain was performed without administration of intravenous contrast material. Individualized dose optimization techniques were used for this CT. COMPARISON: Comparison is made with prior study date June 25, 2015. FINDINGS: Normal soft tissue structures. Normal calvarium. There is a 1.3 cm x 0.5 cm focal hematoma in the convexity of the right frontal lobe. Minimal surrounding edema is seen. There is mild cerebral atrophy with widening of the extra-axial spaces and ventricular dilatation. There are areas of decreased attenuation within the white matter tracts of the supratentorial brain, consistent with microvascular disease changes. Normal basal ganglia and thalami. Normal brainstem. Normal cerebellum. There are no findings of an acute ischemic infarction. Dense calcification of the vertebral arteries and cavernous portions of the internal carotid arteries bilaterally. Because of thickening of the right maxillary sinus and ethmoid sinus. CT/Brain/Head without Contrast IMPRESSION: Chronic involutional changes of the brain. 1.3 cm x 0.5 cm focal hematoma in the convexity of the right frontal lobe. N.B. : The above information has been verbally conveyed by Duke Duran MD to Stevie Perez MD, on 11/03/2018 08:58:56 (ET). Electronically Signed: Duke Duran MD at 9:00 EST , Service support ,
--- NOTE | 2018-11-03 08:34 | ED.VISSUMM ---
- ER Visit Summary Date of Service: 11/03/18 Chief Complaint: Head injury History of Present Illness: The patient is a 63 M who was walking outside to the car when he slipped and fell on the ice. He struck the back of his head. No loss of consciousness but it was reported that he was confused which has now resolved. He was transported by EMS. He has been able to ambulate and notes no symptoms of the arms of the legs or abdomen. He notes pain in the left scapula and left anterior chest. He believes that he slipped and twisted resulting in back. He is supposed to be on Xarelto but has not taken it due to winter nosebleeds. Physical Examination: Afebrile vital signs are stable Gen: Well-nourished well-developed Head: Normocephalic 1 cm curvilinear occipital scalp laceration. There is no active bleeding. There is associated hematoma. Eyes: Perrl EOMI ENT: TMs clear no rhinorrhea moist mucous membranes Neck: Supple no lymphadenopathy no JVD nontender full painless range of motion CVS: Regular rate rhythm no murmurs normal S1-S2 Respiratory: No distress clear to auscultation bilaterally left mid anterior chest wall tenderness without ecchymosis or hematoma Abdomen: Soft nontender nondistended normal bowel sounds no masses Back: Tender to palpation along the left posterior mid scapular ribs without ecchymosis or hematoma Extremity: Nontender no edema Skin: Normal color no rash Neuro: alert orientated ?3 CN II-XII intact normal strength sensation reflexes gait cerebellar Psych: Normal affect normal mood Test Results: CT brain, cervical spine and CT chest was obtained. Demonstrated a 1.3 cm frontal lobe hematoma. CT of the cervical spine was negative for fracture. CT the chest did not dentistry pulmonary contusion or obvious fracture. Emergency Department Course and Treatment: Wound was locally anesthetized using 1% lidocaine. It was closed using a single 5-0 simple Ethilon stitch. Tetanus was updated using Adacel. The patient's mental status is stable and halo x3. He appears neurologically intact. Case was discussed with Connie granado patient will be transferred to the emergency department for further trauma care. Impression: 1. Fall on ice 2. 1 cm occipital scalp laceration with repair 3. Right Intracranial Hematoma 4. Thoracic Strain 5. Tetanus Update 6. Critical care time 35 minutes This note was generated with Dragon dictation software. It may contain incorrect words, spelling, and punctuation that were not noted in review of the chart prior to signing ED Disposition - Plan for ED Patient: Chief Complaint: Fall Referrals: Ada Maravilla MD [Primary Care Provider] -
--- NOTE | 2018-11-03 08:38 | CT_ITS ---
STUDY: CT CERVICAL SPINE WITHOUT CONTRAST REASON FOR EXAM: Male, 63 years old. Add injury due to a fall. RADIATION DOSAGE (If Supplied By Facility): CTDIvol = ( 27.91 ) mGy, DLP = ( 624.34 ) mGycm TECHNIQUE: High resolution transaxial imaging was performed without contrast material. Sagittal and coronal images were reconstructed. Individualized dose optimization techniques were used for this CT. COMPARISON: None FINDINGS: Normal craniovertebral junction. Normal anterior atlantoaxial articulation. Normal odontoid process. Normal cervical lordosis. Normal vertebral bodies and posterior osseous elements. C2-3: Normal endplates. Normal disc height and morphology. Normal central canal and intervertebral neuroforamina. C3-4: Normal endplates. Normal disc height and morphology. Normal central canal and intervertebral neuroforamina. C4-5: Normal endplates. Normal disc height and morphology. Normal central canal and intervertebral neuroforamina. C5-6: Normal endplates. Normal disc height and morphology. Normal central canal and intervertebral neuroforamina. C6-7: Normal endplates. Normal disc height and morphology. Normal central canal and intervertebral neuroforamina. C7-T1: Normal endplates. Normal disc height and morphology. Normal central canal and intervertebral neuroforamina. Calcification of the carotid bulbs. CT/Spine Cervical without Contras IMPRESSION: Normal unenhanced CT examination of the cervical spine. Electronically Signed: Duke Duran MD at 9:01 EST , Service support ,
[2018-11-03 09:33] LABS: Absolute Lymphocyte Count 1.34 X10^3/ul (0.83-4.51); Absolute Neutrophil Count 2.5 X10^3/uL (2.0-7.7); Basophil# 0.01 X10^3/uL; Basophil% 0.2 % (0-1); Eosinophils% 2.3 % (0-5); Hematocrit 37.8 % (40-54); Hemoglobin 12.3 g/dl (13.0-16.5); Lymphocyte # 1.34 X10^3/ul (4.0); Lymphocyte % 30.5 % (19-41); Mean Corp Hgb Conc 32.5 g/gl (32-36); Mean Corpuscular Hgb 31.1 pg (27.0-32.0); Mean Corpuscular Volume 95.7 fL (80-94); Mean Platelet Vol. 10.8 fl (6.2-12.0); Monocyte# 0.44 X10^3/uL; Neutrophil % 56.8 % (47-70); Platelet Count 130 K/mm3 (150-450); RBC Distribution Width CV 14.5 % (11.6-14.6); RBC Distribution Width SD 51.2 fl (35.1-43.9); Red Blood Count 3.95 M/mm3 (4.6-6.2); White Blood Count 4.4 K/mm3 (4.4-11.0)
[2018-11-03 09:34] LABS: POSITIVE COUNT NO; POSITIVE DIFFERENTIAL NO; POSITIVE MORPHOLOGY NO
[2018-11-03 09:44] LABS: International Normalized Ratio 1.1; Prothrombin Time (Protime)PT. 14.6 SECONDS (11.7-14.9)
[2018-11-03 09:50] LABS: ALB/GLOB Ratio 0.7 RATIO (0.9-2.4); AST(SGOT) 42 U/L (15-37); Alanine Aminotransfer ALT/SGPT 27 U/L (16-61); Albumin, Serum 2.8 g/dL (3.2-5.0); Alkaline Phosphatase 195 U/L (45-117); Anion Gap 9 (5-15); BUN 20 mg/dL (7-18); BUN/Creat Ratio 15.3 RATIO (10-20); Chloride 105 mmol/L (98-107); Creatinine, Serum 1.31 mg/dL (0.70-1.30); EST Glomerular Filtration Rate 59 mL/min (>60); Est Glom Filt Rate - Afr Amer 72 mL/min (>60); Glucose 104 mg/dL (74-106); Potassium 3.6 mmol/L (3.5-5.1); Protein, Total 6.8 g/dL (6.4-8.2); Sodium Level 142 mmol/L (136-145)
[2018-11-03] MEDS: Diphth,Pertuss(Acell),Tet Vac 0.5 ML Vial IM (10:23)
[2018-11-03 10:25] VITALS: BP 143/72; PULSE 61; RESP 14; O2SAT 98
[2018-11-03 10:55] VITALS: BP 140/64
== END 2018-11-03 11:30 | disposition short-term general hospital (02) ==
PROVIDERS: Emergency Provider Emergency Medicine; Family Provider Internal Medicine; PCP Internal Medicine
DX: S06.2X0A Diffuse traumatic brain injury without loss of consciousness, initial encounter (principal); S01.01XA Laceration without foreign body of scalp, initial encounter; S29.012A Strain of muscle and tendon of back wall of thorax, initial encounter; Z23 Encounter for immunization; I25.10 Atherosclerotic heart disease of native coronary artery without angina pectoris; I50.9 Heart failure, unspecified; I48.91 Unspecified atrial fibrillation; G47.33 Obstructive sleep apnea (adult) (pediatric); Z86.718 Personal history of other venous thrombosis and embolism; Z86.711 Personal history of pulmonary embolism; Z79.82 Long term (current) use of aspirin; Z79.02 Long term (current) use of antithrombotics/antiplatelets; Z79.899 Other long term (current) drug therapy; W00.0XXA Fall on same level due to ice and snow, initial encounter; Y93.01 Activity, walking, marching and hiking; Y92.89 Other specified places as the place of occurrence of the external cause; Y99.8 Other external cause status
CPT/HCPCS: 12001; 70450; 71250; 72125; 80053; 85025; 85610; 85730; 90715; 99285; A4216

== ENCOUNTER → 2019-01-29 | Outpatient (CLI) | payer MEDICAID, SELFPAY ==
[2019-01-29 12:51] VITALS: BMI 39.3
[2019-01-29 14:49] LABS: Absolute Lymphocyte Count 1.41 X10^3/ul (0.83-4.51); Absolute Neutrophil Count 2.3 X10^3/uL (2.0-7.7); Basophil# 0.01 X10^3/uL; Basophil% 0.2 % (0-1); Eosinophils% 2.4 % (0-5); Hematocrit 39.7 % (40-54); Hemoglobin 12.9 g/dl (13.0-16.5); Lymphocyte # 1.41 X10^3/ul (4.0); Lymphocyte % 33.4 % (19-41); Mean Corp Hgb Conc 32.5 g/gl (32-36); Mean Corpuscular Volume 95.4 fL (80-94); Mean Platelet Vol. 10.4 fl (6.2-12.0); Monocyte# 0.35 X10^3/uL; Monocyte% 8.3 % (0-10); Neutrophil # 2.34 X10^3/uL (2.7-7.7); Neutrophil % 55.5 % (47-70); Platelet Count 122 K/mm3 (150-450); RBC Distribution Width CV 15.5 % (11.6-14.6); RBC Distribution Width SD 53.5 fl (35.1-43.9); Red Blood Count 4.16 M/mm3 (4.6-6.2); White Blood Count 4.2 K/mm3 (4.4-11.0)
[2019-01-29 14:55] LABS: POSITIVE COUNT NO; POSITIVE DIFFERENTIAL NO; POSITIVE MORPHOLOGY NO
[2019-01-29 15:03] LABS: Anion Gap 8 (5-15); BUN 30 mg/dL (7-18); BUN/Creat Ratio 15.2 RATIO (10-20); Calcium,Total 8.2 mg/dL (8.5-10.1); Chloride 101 mmol/L (98-107); Creatinine, Serum 1.97 mg/dL (0.70-1.30); EST Glomerular Filtration Rate 37 mL/min (>60); Est Glom Filt Rate - Afr Amer 45 mL/min (>60); Glucose 83 mg/dL (74-106); Potassium 3.6 mmol/L (3.5-5.1); Sodium Level 138 mmol/L (136-145)
[2019-01-29 15:10] LABS: AST(SGOT) 48 U/L (15-37); Alanine Aminotransfer ALT/SGPT 42 U/L (16-61); Albumin, Serum 3.1 g/dL (3.2-5.0); Alkaline Phosphatase 189 U/L (45-117); Bilirubin, Direct 0.93 mg/dL (0.00-0.30); Cholesterol 138 mg/dL (200); Globulin 3.8 g/dL (2.2-4.2); High Density Lipoprotein 64 mg/dL; Protein, Total 6.9 g/dL (6.4-8.2); Triglycerides 77 mg/dL; Very Low Density Lipoprotein 15 mg/dL (5-40)
[2019-01-29 15:13] LABS: BNP,B-Type NATRIURETIC PEPTIDE 442.8 pg/mL (0-100)
== END | disposition home or self-care (01) ==
LOC: LAB 13:53
PROVIDERS: Family Provider Internal Medicine; PCP Internal Medicine; Referring Provider Nurse Practitioner Family; Visit Provider Nurse Practitioner Family
DX: R06.09 Other forms of dyspnea (principal); I42.8 Other cardiomyopathies; I10 Essential (primary) hypertension; I48.0 Paroxysmal atrial fibrillation; E78.5 Hyperlipidemia, unspecified; Z79.899 Other long term (current) drug therapy
CPT/HCPCS: 36415; 80048; 80061; 80076; 83880; 85025

== ENCOUNTER → 2019-02-15 12:28 | Outpatient (CLI) | payer MEDICAID, SELFPAY ==
[2018-10-13 07:54] VITALS: BMI 40.7
[2019-01-29 12:51] VITALS: BMI 39.3
== END ==
PROVIDERS: Family Provider Internal Medicine; PCP Internal Medicine; Referring Provider Nurse Practitioner Acute Care; Visit Provider Nurse Practitioner Acute Care
DX: G47.33 Obstructive sleep apnea (adult) (pediatric) (principal)
CPT/HCPCS: 95811

== ENCOUNTER → 2019-04-20 | Outpatient (CLI) | payer MEDICAID, SELFPAY ==
[2019-04-14 08:48] VITALS: BMI 39.9
== END | disposition home or self-care (01) ==
LOC: LAB 09:19
PROVIDERS: Family Provider Internal Medicine; PCP Internal Medicine; Referring Provider Nurse Practitioner Acute Care; Visit Provider Nurse Practitioner Acute Care
DX: R05 Cough (principal)
CPT/HCPCS: 87633

== ENCOUNTER → 2019-04-29 | Outpatient (CLI) | payer MEDICAID, SELFPAY ==
[2019-04-29 10:42] VITALS: BMI 39.9
--- NOTE | 2019-04-29 11:45 | RAD_ITS ---
STUDY: X-RAY CHEST REASON FOR EXAM: Male, 63 years old. Shortness of breath and cough TECHNIQUE: PA and lateral views of the chest. COMPARISON: 09/19/2018 FINDINGS: Lungs are hyperexpanded with chronic interstitial changes. There is opacification in the left lung base a likely combination of effusion, and atelectasis or infiltrate. Follow-up recommended to assure resolution Normal size heart. Normal mediastinum and annamarie. Normal visualized pulmonary arteries. Normal visualized aortic arch and descending thoracic aorta. There are diffuse degenerative changes of the visualized thoracic spine. Normal visualized ribs, clavicles, and shoulders. There is no demonstrated abnormality of the visualized soft tissue structures of the upper abdomen. RAD/Chest PA and Lateral IMPRESSION: Hyperexpanded lungs with chronic interstitial changes and left pleural effusion with likely associated atelectasis or infiltrate. Follow-up recommended to assure resolution Electronically Signed: Bj Adair MD at 12:12 EDT , Service support ,
[2019-04-29 12:58] LABS: Absolute Lymphocyte Count 1.44 X10^3/uL (0.83-4.51); Absolute Neutrophil Count 2.4 X10^3/uL (2.0-7.7); Basophil# 0.01 X10^3/uL; Basophil% 0.2 % (0-1); Eosinophil# 0.06 X10^3/uL; Eosinophils% 1.4 % (0-5); Hematocrit 36.5 % (40-54); Lymphocyte # 1.44 X10^3/ul (4.0); Lymphocyte % 32.7 % (19-41); Mean Corp Hgb Conc 32.9 g/dL (32-36); Mean Corpuscular Hgb 32.3 pg (27.0-32.0); Mean Corpuscular Volume 98.1 fL (80-94); Mean Platelet Vol. 10.9 fl (6.2-12.0); Monocyte# 0.49 X10^3/uL; Monocyte% 11.1 % (0-10); NRBC Flagged by Analyzer 0 % (0-5); Neutrophil # 2.39 X10^3/uL (2.7-7.7); Neutrophil % 54.1 % (47-70); Platelet Count 144 K/mm3 (150-450); RBC Distribution Width SD 50.4 fl (35.1-43.9); Red Blood Count 3.72 M/mm3 (4.6-6.2); White Blood Count 4.4 K/mm3 (4.4-11.0)
[2019-04-29 13:10] LABS: BNP,B-Type NATRIURETIC PEPTIDE 639.9 pg/mL (0-100)
[2019-04-29 13:29] LABS: AST(SGOT) 36 U/L (15-37); Alanine Aminotransfer ALT/SGPT 24 U/L (16-61); Albumin, Serum 2.6 g/dL (3.2-5.0); Alkaline Phosphatase 197 U/L (45-117); Anion Gap 5 (5-15); BUN 22 mg/dL (7-18); Bilirubin, Direct 0.61 mg/dL (0.00-0.30); Calcium,Total 7.8 mg/dL (8.5-10.1); Chloride 106 mmol/L (98-107); Creatinine, Serum 1.69 mg/dL (0.70-1.30); EST Glomerular Filtration Rate 44 mL/min (>60); Est Glom Filt Rate - Afr Amer 53 mL/min (>60); Glucose 99 mg/dL (74-106); Potassium 3.6 mmol/L (3.5-5.1); Protein, Total 6.6 g/dL (6.4-8.2); Sodium Level 140 mmol/L (136-145)
== END | disposition home or self-care (01) ==
LOC: RAD 11:45
PROVIDERS: Physician Assistant Medical; Family Provider Internal Medicine; PCP Internal Medicine; Referring Provider Nurse Practitioner Family; Visit Provider Nurse Practitioner Family
DX: R60.9 Edema, unspecified (principal); I43 Cardiomyopathy in diseases classified elsewhere; R05 Cough; R06.09 Other forms of dyspnea; I25.10 Atherosclerotic heart disease of native coronary artery without angina pectoris; I11.0 Hypertensive heart disease with heart failure; I50.9 Heart failure, unspecified; Z79.899 Other long term (current) drug therapy
CPT/HCPCS: 36415; 71046; 80048; 80076; 83880; 85025

== ENCOUNTER → 2019-05-13 07:46 | Outpatient (CLI) | payer MEDICAID, SELFPAY ==
[2019-04-29 10:42] VITALS: BMI 39.9
[2019-05-05 10:36] VITALS: BMI 38.3
--- NOTE | 2019-05-13 07:51 | ECHOCS_ITS ---
Reason For Study: SOB Procedure This was a 2D Doppler, Color Flow transthoracic echocardiogram. The study was technically difficult. Contrast injection was performed. Exam performed in department. Left Ventricle Normal LV size. Mild concentric left ventricular hypertrophy. Left ventricular systolic function is normal. The estimated ejection fraction is 60 %. Transmitral doppler flow suggestive of impaired relaxation of left ventricle. No regional wall motion abnormalities noted. Right Ventricle Normal RV size. Normal systolic function. Atria The left atrium is moderately enlarged. Normal right atrium. No doppler evidence for ASD. Mitral Valve There is no mitral annular calcification. Normal mitral valve. Mild (1+) mitral valve insufficiency. Tricuspid Valve Normal tricuspid valve. Mild tricuspid valve insufficiency. Unable to estimate RV systolic pressure/pulmonary artery pressure due to technically difficult study. Aortic Valve Trisinus/trileaflet aortic valve. Mild focal aortic valve calcification. Trivial aortic valve insufficiency. Pulmonic Valve The pulmonic valve is not well visualized. Trivial pulmonic valve insufficiency. Great Vessels Normal sized aortic root. Pericardium/Pleural No pericardial effusion. Medication 22 gauge I.V. with prn adaptor inserted into right arm. Diluted definity 3ml given slow IV push to enhance endocardial definition. MMode/2D Measurements & Calculations LVIDd: 4.6 cm IVSd: 1.4 cm Ao root diam: 3.8 cm LVIDs: 3.6 cm LVPWd: 1.3 cm RVDd: 3.2 cm FS: 20.4 % LAV(MOD-bp): 97.0 ml LA A4 area: 29.1 cm2 LA dimension(2D): 4.2 cm LAV(MOD-bp) Indexed: 39.5 ml/m2 LAV(MOD-sp2): 96.5 ml LAV(MOD-sp4): 95.5 ml RA A4 area: 15.1 cm2 Doppler Measurements & Calculations MV E max suleiman: 73.6 cm/sec Lat Peak E' Suleiman: 10.5 cm/sec Med Peak E' Suleiman: 5.4 cm/sec MV A max suleiman: 98.8 cm/sec E/E' lat: 7.0 E/E' med: 13.7 MV E/A: 0.75 Ao V2 max: 178.8 cm/sec AI max suleiman: 316.4 cm/sec LV V1 max: 127.1 cm/sec Ao max P.8 mmHg AI max P.0 mmHg LV V1 max P.5 mmHg AI dec slope: 174.6 cm/sec2 AI P1/2t: 530.7 msec PA V2 max: 121.2 cm/sec Interpretation Summary The study was technically difficult. Contrast injection was performed. Mild concentric left ventricular hypertrophy. The left atrium is moderately enlarged. Mild (1+) mitral valve insufficiency. Mild tricuspid valve insufficiency. Mild focal aortic valve calcification. Trivial aortic valve insufficiency. Trivial pulmonic valve insufficiency. Unable to estimate RV systolic pressure/pulmonary artery pressure due to technically difficult study. Transmitral doppler flow suggestive of impaired relaxation of left ventricle Ordering Physician: Gosia Boyle/Zach Castillo Referring Physician: Ada Maravilla Performed By: Carol Hernandez RDCS
[2019-05-13 09:19] LABS: Anion Gap 5 (5-15); BUN 30 mg/dL (7-18); BUN/Creat Ratio 13.1 RATIO (10-20); Calcium,Total 7.8 mg/dL (8.5-10.1); Chloride 105 mmol/L (98-107); Creatinine, Serum 2.29 mg/dL (0.70-1.30); EST Glomerular Filtration Rate 31 mL/min (>60); Est Glom Filt Rate - Afr Amer 38 mL/min (>60); Glucose 131 mg/dL (74-106); Potassium 3.8 mmol/L (3.5-5.1); Sodium Level 139 mmol/L (136-145)
== END ==
PROVIDERS: Family Provider Internal Medicine; PCP Internal Medicine; Referring Provider Physician Assistant Medical; Visit Provider Physician Assistant Medical
DX: R60.9 Edema, unspecified (principal); I43 Cardiomyopathy in diseases classified elsewhere; R05 Cough; I11.0 Hypertensive heart disease with heart failure; I50.9 Heart failure, unspecified; R06.09 Other forms of dyspnea
CPT/HCPCS: 36415; 80048; 93306; Q9957; A4216; C8929

== ENCOUNTER → 2019-06-04 | Outpatient (CLI) | payer MEDICAID, SELFPAY ==
[2019-06-04 08:30] VITALS: BMI 37.5
[2019-06-04 09:50] LABS: Anion Gap 8 (5-15); BUN 25 mg/dL (7-18); BUN/Creat Ratio 13.8 RATIO (10-20); Calcium,Total 7.9 mg/dL (8.5-10.1); Chloride 104 mmol/L (98-107); Creatinine, Serum 1.81 mg/dL (0.70-1.30); EST Glomerular Filtration Rate 41 mL/min (>60); Est Glom Filt Rate - Afr Amer 49 mL/min (>60); Glucose 87 mg/dL (74-106); Potassium 3.7 mmol/L (3.5-5.1); Sodium Level 141 mmol/L (136-145)
== END | disposition home or self-care (01) ==
LOC: LAB 09:08
PROVIDERS: Family Provider Internal Medicine; PCP Internal Medicine; Referring Provider Physician Assistant Medical; Visit Provider Physician Assistant Medical
DX: N28.9 Disorder of kidney and ureter, unspecified (principal)
CPT/HCPCS: 36415; 80048

== ENCOUNTER 2019-06-18 05:44 | Day surgery (SDC) | payer MEDICAID, SELFPAY ==
[2019-06-11 13:50] VITALS: BMI 37.5
--- NOTE | 2019-06-12 11:52 | HP_ITS ---
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: No Is patient in pain?: No Allergies cefuroxime axetil [From Ceftin] Allergy (Verified 06/11/19 13:49) Rash hydrocodone bitartrate [From Vicodin] Allergy (Verified 06/11/19 13:49) Rash Penicillins Allergy (Verified 06/11/19 13:49) Hives carvedilol [From Coreg] Adverse Reaction (Verified 06/11/19 13:49) black out lisinopril Adverse Reaction (Verified 06/11/19 13:49) cough Medications Omeprazole 40 mg PO DAILY 08/13/18 [History Confirmed 06/11/19] amiodarone 100 mg tablet 100 mg PO DAILY #30 tab 10/12/18 [Rx Confirmed 06/11/19] aspirin 81 mg tablet,delayed release 81 mg PO QDAY #30 tab 10/12/18 [Rx Confirmed 06/11/19] Metoprolol Tartrate [Lopressor (Beta Helen)] 100 mg PO BID 11/03/18 [History Confirmed 06/11/19] amlodipine 5 mg tablet 5 mg PO DAILY #90 tab 02/02/19 [Rx Confirmed 06/11/19] pravastatin 20 mg tablet 20 mg PO QHS #30 tab 04/12/19 [Rx Confirmed 06/11/19] albuterol sulfate HFA 90 mcg/actuation aerosol inhaler 2 puff INHALATION Q4H PRN #18 g 04/14/19 [Rx Confirmed 06/11/19] furosemide 80 mg tablet 80 mg PO BID tab 04/29/19 [History Confirmed 06/11/19] potassium chloride ER 10 mEq tablet,extended release 40 meq PO DAILY #120 tab 04/29/19 [Rx Confirmed 06/11/19] benzonatate 100 mg capsule 100 mg PO TID PRN #30 cap 05/05/19 [Rx Confirmed 06/11/19] loratadine 10 mg tablet 10 mg PO DAILY 05/05/19 [History Confirmed 06/11/19] losartan 25 mg tablet 25 mg PO DAILY tab 05/05/19 [History Confirmed 06/11/19] [facility] Medical History Essential hypertension (Chronic) History of congestive heart failure (Chronic) History of cardiomyopathy (Chronic) History of atrial fibrillation (Chronic) Non-ischemic cardiomyopathy (Chronic) PAF (paroxysmal atrial fibrillation) (Chronic) History of cardioversion (Resolved ~08/2017) History of echocardiogram (Resolved ~08/2017) History of echocardiogram (Acute ~01/2013) Erectile dysfunction (Chronic) Obesity (BMI 30-39.9) (Chronic) ZAID (obstructive sleep apnea) (Chronic) DVT (deep venous thrombosis) (Chronic) Renal insufficiency (Acute) Surgical History H/O cardiac catheterization (Resolved ~06/2009) History of detached retina repair (Resolved) History of left inguinal hernia repair (Resolved) Family History Mother , CABG @ 50yrs, age 61 CAD (coronary artery disease) Social History (Updated 06/12/19 @ 11:55 by Stevie Mohan MD) Smoking Status: Never smoker alcohol intake: never substance use type: does not use caffeine: No what type of physical activity do you participate in: other details: PT frequency: 3-4 times per week duration: 15-30 minutes/day seatbelt use: always do you feel safe at home: Yes HPI HPI HPI: ARMAAN GUTHRIE, is a 63 M who presents to the office today for HPI HPI Surgical H&P: Yes HPI: ARMAAN GUTHRIE, is a 63 M who presents to the office today for Evaluation for endoscopy. Patient has had a rather exhaustive work-up for his chronic cough that he has had for over a year now approximately 1 year ago he had an upper GI done which showed that he had a 12 mm pill get hung up in his distal esophagus.. When he has been coughing and eating his upper abdomen has also been uncomfortable for him. He seen Dr. Simmons in the past and that work-up he reports is being negative. ROS General General: Yes weight change and fatigue; no appetite, colon cancer, breast cancer or weakness HEENT HEENT: Yes difficulty swallowing, eye injury and eye surgery; no swollen glands or hoarseness Endo Endocrine: No thyroid disease, diabetes mellitus, thyroid cancer, Hair loss, heat intolerance or cold intolerance Skin Skin: No rash or changing moles Breast Breast: No left breast lump, right breast lump, nipple discharge, breast pain, abnormal mammogram, abnormal US or breast enlargement Musc Musculoskeletal: Yes back problems; no arthritis, rheumatoid arthritis, gout or joint pain Cardio Cardiovascular: Yes heart disease, atrial fibrillation and high blood pressure; no murmur, pacemaker, heart attack, heart stent, palpitations, shortness of breat with exertion or chest pain Psych Psychiatric: Yes depression and anxiety; no hearing voices Resp Respiratory: Yes shortness of breath, Yes sleep apnea, Yes cough, No COPD, No asthma, No emphysema, No wheezing Gastro Gastrointestinal: Yes abdominal pain, Yes nausea or vomiting, Yes diarrhea, Yes constipation, No blood in stool, Yes acid reflux, No hemorrhoids, No ulcers, No gallbladder problem, No black,tarry stools Moses Hematologic: No blood thinners, No blood disorders, No bleeding, No anemia, No blood clots Neuro Neurologic: No system reviewed and no additional complaints, except as docu, No as per HPI, No abnormal walking, No abnormal hearing, No abnormal movements, No abnormal speech, No behavioral changes, No burning sensations, No confusion, No seizure-like activity, No unsteadiness, No dizziness, No localized weakness, No frequent falls, No headache(s), No lack of coordination, No loss of vision, No memory loss, No numbness, No other visual disturbances, No radiating pain, No restless legs, No sensory deficit, No fainting, No tingling, No tremor(s), No weakness, No other Exam Const General: no acute distress, well developed, well hydrated Orientation: oriented to person, oriented to place, oriented to time [facility] Head: normocephalic, atraumatic Ears: external ears normal Mouth: moist mucous membranes Eyes Sclera: sclerae normal Pupils: normal by confrontation Neck Neck: no lymphadenopathy noted Neck mass: No Thyroid: thyroid normal, symmetrical Chest Chest palpation & inspection: normal inspection of the chest Breast Palpation: No nipple discharge Resp Effort & Inspection: normal respiratory effort Auscultation: clear to auscultation bilaterally Percussion: percussion normal Cardio Rate: regular rate Rhythm: regular rhythm Heart Sounds: no murmurs GI Inspection: obesity Palpation: soft, no hepatosplenomegaly, no masses, nontender Rectal Exam: other Other: Rectal exam deferred. Extrem General: normal to inspection, no clubbing, cyanosis or edema Assessment & Plan Problems 1. Cough R05 2. Abnormal upper gastrointestinal barium series R93.3 Plan I have discussed the above with the patient. I have offered the patient esophagogastroduodenoscopy for evaluation. I have explained the risks/benefits of the procedure and described the procedure. I have discussed the risks with the patient, including but not limited to: infection, bleeding, perforation of the GI tract requiring emergency surgery, inability to complete the procedure, injury to any internal organs, complications of anesthesia, etc. - the patient understands and agrees to proceed. I have answered all the patient's questions to the patient's satisfaction and the patient has no further questions. The patient has been given instructions for the colon cleansing preparation. Coding Level of Care Code Off vis,new,level 3 Diagnoses Cough R05 Abnormal upper gastrointestinal barium series R93.3 06/12/19 1155 <Electronically signed by Stevie crystal MD> Date _ Stevie Mohan MD I have re-examined the patient. There are no clinical changes since date of exam.
[2019-06-18 06:24] VITALS: BP 132/79; PULSE 60; RESP 16; TEMP 36.8; O2SAT 98; BMI 38.0
[2019-06-18] MEDS: Lactated Ringers 1,000 ML 100 ML IV (06:38)
--- NOTE | 2019-06-18 07:00 | IMM_PTH ---
PATIENT: ARMAAN GUTHRIE LOC: EN U#:[id number] AGE/SX: 63/M ROOM: RE06/18/[address]: Dr. Stevie Mohan MD : 1955 BED: DIS: 06/18/2019 SPEC #: [id number] RECD: 06/18/19 09:09 STATUS: JEANNINE REBj #: [id number] RUBEN: 06/18/19 07:[address]: Stevie Mohan DEPT: IMMUNOHISTOCHEMISTRY RECD BY: Jeannie Lofton ENTERED: 06/18/19 09:09 SP TYPE: IMMUNO OTHR DR: MD Ada Nieves MD Tissues: Stomach, NOS Procedures: H Pylori (initial) PHYSICIAN & INSTITUTION [place] [id number] SPECIMEN INFORMATION: Tissue Source: Antrum biopsy Clinical Info: Upper abdominal pain, cough Specimen Number: [id number] CPT code: 42723 METHODOLOGY: Deparaffinized sections of prefer/formalin-fixed tissue or PAP/DQ stained slides are incubated with monoclonal/polyclonal antibodies/oligonucleotide probes. Localization is made via biotin free immunoperoxidase method. Appropriate controls are performed and reacted as expected. Results on target cell population are indicated in the following table: RESULTS: ANTIBODY / CLONE RESULT H Pylori (polyclonal) negative These tests were developed and their performance characteristics determined by [facility]. They may not have been cleared or approved by the U.S. Food and Drug Administration. The FDA has determined that such clearance or approval is not necessary. INTERPRETATION: Antrum biopsy: Negative for Helicobacter pylori organisms. AM:geraldine 06/21/19
--- NOTE | 2019-06-18 07:00 | EGD_PTH ---
PATIENT: ARMAAN GUTHRIE LOC: EN U#:[id number] AGE/SX: 63/M ROOM: RE06/18/[address]: Dr. Stevie Mohan MD : 1955 BED: DIS: 06/18/2019 SPEC #: [id number] RECD: 06/18/19 07:49 STATUS: JEANNINE SAIGE #: [id number] RUBEN: 06/18/19 07:[address]: Stevie Mohan DEPT: SURGICAL PATHOLOGY RECD BY: Peter Vargas ENTERED: 06/18/19 08:32 SP TYPE: EGD BIOPSY OT DR: MD Ada Nieves MD Tissues: Gastric mucous membrane Procedures: Surgery Specimen Level IV HEADER OPERATION: EGD ([facility] [place]) PRE-OP DIAGNOSIS: Upper abdominal pain, cough TISSUE SUBMITTED: Antrum biopsy for H. pylori and path MICROSCOPIC DIAGNOSIS Gastric antrum, biopsy: Mild chronic gastritis. See comment. AM:geraldine 06/21/19 COMMENT The results of immunohistochemistry for Helicobacter pylori will be reported separately ([id number]). MICROSCOPIC DESCRIPTION Slides are reviewed. GROSS DESCRIPTION Received in fixative is one container labeled with the patient's name and designated antrum biopsy for H. pylori and path. The specimen consists of one irregular fragment of light yoder soft tissue that measures 0.4 x 0.4 x 0.1 cm. The specimen is totally submitted in one cassette. / SJ:geraldine 06/18/19 TC:3 CPT: 05704
[2019-06-18 07:16] VITALS: BP 110/71; BP 132/74; PULSE 59; RESP 16; TEMP 36.4; O2SAT 92
--- NOTE | 2019-06-18 07:19 | OP.ENDO_ITS ---
06/18/2019 Ada Maravilla [id number] [id number] Re : Upper GI endoscopy procedure for Prudencio Brandon Dear Dr. Maravilla This procedure was performed on Tuesday, June 18, 2019. My impressions and recommendations are as follows: Impressions : - Normal esophagus. - Erythematous mucosa in the stomach. Biopsied. - Normal examined duodenum. No specimens collected. Recommendations : - Discharge patient to home. - Resume previous diet. - Continue present medications. - Await pathology results. - Repeat upper endoscopy (date not yet determined) for surveillance. - Return to my office in 1 week. My findings are described in the full procedure note, which is enclosed. If I can be of further assistance, please feel free to contact me at Doctor phone number(s): , Fax: [phone], Work: . Sincerely, MD Stevie Najera MD 06/18/2019 7:19:05 AM This report has been signed electronically.
[2019-06-18 07:21] VITALS: BP 112/76; BP 132/74; PULSE 58; RESP 16; O2SAT 96
[2019-06-18 07:26] VITALS: BP 119/68; BP 132/74; PULSE 58; RESP 16; O2SAT 97
[2019-06-18 07:31] VITALS: BP 122/74; BP 132/74; PULSE 56; RESP 16; TEMP 36.9; O2SAT 93
[2019-06-18 07:40] VITALS: BP 132/74
== END 2019-06-18 09:38 | disposition home or self-care (01) ==
LOC: EN 05:44 → AC 05:45
PROVIDERS: Family Provider Internal Medicine; PCP Internal Medicine; Referring Provider Internal Medicine; Visit Provider Surgery
PROC: 0DJ08ZZ Inspection of Upper Intestinal Tract, Via Natural or Artificial Opening Endoscopic (ICD-10-PCS; CPT 43235; principal; 2019-06-18 06:55)
DX: K29.50 Unspecified chronic gastritis without bleeding (principal); I11.0 Hypertensive heart disease with heart failure; I50.9 Heart failure, unspecified; I48.0 Paroxysmal atrial fibrillation; G47.33 Obstructive sleep apnea (adult) (pediatric); E78.00 Pure hypercholesterolemia, unspecified; E66.9 Obesity, unspecified; Z68.36 Body mass index [BMI] 36.0-36.9, adult; Z86.718 Personal history of other venous thrombosis and embolism; Z79.02 Long term (current) use of antithrombotics/antiplatelets; Z79.82 Long term (current) use of aspirin; Z79.899 Other long term (current) drug therapy
CPT/HCPCS: 43239; 88305; 88342; J7120

== ENCOUNTER 2019-07-21 19:43 | Inpatient (IN) | payer MEDICAID, SELFPAY ==
[2019-06-29 11:24] VITALS: BMI 38.0
[2019-07-21 19:44] VITALS: BP 121/73; PULSE 102; RESP 25; TEMP 38.2; O2SAT 89; BMI 38.4
[2019-07-21] MEDS: 0.9% Normal Saline 1,000 ML 15 ML IV (19:44)
--- NOTE | 2019-07-21 19:59 | EKG12_ITS ---
Test Reason : AM EKG Blood Pressure : / mmHG Vent. Rate : 072 BPM Atrial Rate : 072 BPM P-R Int : 176 ms QRS Dur : 106 ms QT Int : 448 ms P-R-T Axes : 036 011 032 degrees QTc Int : 490 ms Sinus rhythm with Premature supraventricular complexes and with occasional Premature ventricular comp lexes Low voltage QRS Cannot rule out Anterior infarct , age undetermined Abnormal ECG When compared with ECG of 19-SEP-2018 09:32, Premature ventricular complexes are now Present Premature supraventricular complexes are now Present Nonspecific T wave abnormality now evident in Lateral leads Confirmed by CAMELIA MARTINES, SOLOMON ([id number]), editor book JOELLE AGUILAR ([id number]) on 07/28/2019 11:14:59 AM Referred By: ALEX Confirmed By:JOE DENISE MD
--- NOTE | 2019-07-21 19:59 | RAD_ITS ---
STUDY: X-RAY CHEST REASON FOR EXAM: Male, 63 years old. Chest pain. TECHNIQUE: Single frontal view of the chest. COMPARISON: April 29, 2019 FINDINGS: There are low lung volumes. There are persistent left basilar streaky opacities. There are prominent interstitial markings. Normal size heart. Normal mediastinum and annamarie. Normal visualized pulmonary arteries. Normal visualized aortic arch and descending thoracic aorta. Normal visualized thoracic spine. Normal visualized ribs, clavicles, and shoulders. There is no demonstrated abnormality of the visualized soft tissue structures of the upper abdomen. RAD/Chest 1 View (Portable) IMPRESSION: Left basilar atelectasis and/or scarring. Prominent interstitial markings, these may be chronic in nature however cannot exclude mild edema. Electronically Signed: Hope Francisco MD at 20:14 EDT Tel , Service support ,
[2019-07-21 20:03] VITALS: TEMP 38.2; O2SAT 95
[2019-07-21 20:06] LABS: Absolute Lymphocyte Count 1.47 X10^3/uL (0.83-4.51); Absolute Neutrophil Count 10.2 X10^3/uL (2.0-7.7); Basophil# 0.01 X10^3/uL; Basophil% 0.1 % (0-1); Eosinophil# 0.01 X10^3/uL; Eosinophils% 0.1 % (0-5); Hematocrit 36.1 % (40-54); Hemoglobin 11.8 g/dL (13.0-16.5); Lymphocyte # 1.47 X10^3/ul (4.0); Lymphocyte % 11.5 % (19-41); Mean Corp Hgb Conc 32.7 g/dL (32-36); Mean Corpuscular Hgb 31.8 pg (27.0-32.0); Mean Corpuscular Volume 97.3 fL (80-94); Mean Platelet Vol. 10.6 fl (6.2-12.0); Monocyte# 1.03 X10^3/uL; Monocyte% 8.1 % (0-10); NRBC Flagged by Analyzer 0 % (0-5); Neutrophil # 10.15 X10^3/uL (2.7-7.7); Neutrophil % 79.5 % (47-70); Platelet Count 200 K/mm3 (150-450); RBC Distribution Width CV 14.3 % (11.6-14.6); RBC Distribution Width SD 51.6 fl (35.1-43.9); Red Blood Count 3.71 M/mm3 (4.6-6.2); White Blood Count 12.8 K/mm3 (4.4-11.0)
[2019-07-21] MEDS: Aspirin 81 MG TAB.CHEW 324 MG PO (20:13)
[2019-07-21 20:34] LABS: BNP,B-Type NATRIURETIC PEPTIDE 552.7 pg/mL (0-100)
[2019-07-21 20:40] LABS: Anion Gap 9 (5-15); BUN 26 mg/dL (7-18); BUN/Creat Ratio 12.1 RATIO (10-20); Calcium,Total 7.9 mg/dL (8.5-10.1); Chloride 99 mmol/L (98-107); Creatinine, Serum 2.15 mg/dL (0.70-1.30); EST Glomerular Filtration Rate 33 mL/min (>60); Est Glom Filt Rate - Afr Amer 40 mL/min (>60); Glucose 98 mg/dL (74-106); Potassium 4.3 mmol/L (3.5-5.1); Sodium Level 138 mmol/L (136-145)
[2019-07-21 20:55] LABS: Lactic Acid 2.3 mmol/L (0.4-2.0)
--- NOTE | 2019-07-21 20:56 | ED.RN ---
LACTIC OF 2.3 REPORTED TO . VERBALIZED UNDERSTANDING
[2019-07-21 21:00] VITALS: BP 112/69; PULSE 89; RESP 22; TEMP 38.3; O2SAT 96
[2019-07-21 21:04] LABS: AST(SGOT) 48 U/L (15-37); Alanine Aminotransfer ALT/SGPT 25 U/L (16-61); Albumin, Serum 2.4 g/dL (3.2-5.0); Alkaline Phosphatase 172 U/L (45-117); Bilirubin, Direct 0.69 mg/dL (0.00-0.30); Globulin 4.4 g/dL (2.2-4.2); Lipase 98 U/L (73-393); Protein, Total 6.8 g/dL (6.4-8.2)
--- NOTE | 2019-07-21 21:29 | ED.VISSUMM ---
- ER Visit Summary Date of Service: 07/21/19 Chief Complaint: [Chest pain, weakness, cough] History of Present Illness: The patient is a 63 M [presents to the emergency department complaint of not feeling well. Patient states that he has had a cough for months or close to a year. Patient also over last 2 days had increasing chest discomfort that he describes as sharp and stabbing across the lower anterior chest. He denies any diaphoresis. Patient has had some nausea and he does feel short of breath. Patient describes generalized weakness. He denies recent travel or surgery. Patient does have a history of CHF as well as hypertension and high cholesterol. Patient has a history of A. fib and is supposed to be on Xarelto but has not been taking it. Patient states that he was to get nosebleeds with the Xarelto so he stopped taking it and this physicians are aware. Patient states that the cough is bothersome and oftentimes will bring up some phlegm that is clear in color. Patient states that he is so weak that he is having a hard time caring for himself at this time.] Physical Examination: [HEENT-PERRLA, EOMI. Cranial nerves II through XII grossly intact. TMs clear. Mucous membranes moist. No adenopathy. Cardiovascular-regular rate and rhythm without murmur or ectopy Lungs-clear to auscultation, chest wall stable without crepitus or subcu emphysema Abdomen-normoactive bowel sounds, soft, nontender, no rebound or rigidity, no peritoneal signs. Extremities-intact ?4, normal range of motion, normal pulses, atraumatic] Test Results: [EKG obtained arrival showed a sinus tachycardia with a ventricular rate of 103 bpm with occasional PVCs. CBC with differential showed a white count of 12.8, hemoglobin 11.8, hematocrit 36, platelets 200. Chemistries unremarkable. BUN was 26 and creatinine 2.15. LFTs show slight elevation in the AST of 48 total bili was slightly elevated 2.0. Lipase was normal at 98. Troponin had a slight elevation at 0.058. BNP was 552. Chest x-ray read by radiology showed some scarring and possible increased markings due to congestion. Lactate was 2.3.] Emergency Department Course and Treatment: [Patient had blood cultures ordered. Patient was started on Levaquin IV. Patient was given aspirin on arrival.] Treatment Plan: [Admit] Disposition: [Admit] Impression: [Chest pain Pneumonia-clinical diagnosis Generalized weakness] This note was generated with [employer] dictation software. It may contain incorrect words, spelling, and punctuation that were not noted in review of the chart prior to signing ED Disposition - Plan for ED Patient: Referrals: Ada Maravilla MD [Primary Care Provider] -
--- NOTE | 2019-07-21 21:35 | HP.PCM_ITS ---
Problem List (1) Severe sepsis Status: Acute (2) Pneumonia Status: Acute Qualifiers: Pneumonia type: due to unspecified organism (3) Chest pain Status: Acute Qualifiers: Chest pain type: unspecified Qualified Code(s): R07.9 - Chest pain, unspecified (4) HLD (hyperlipidemia) Status: Chronic Qualifiers: Hyperlipidemia type: unspecified Qualified Code(s): E78.5 - Hyperlipidemia, unspecified (5) Essential hypertension Status: Chronic (6) PAF (paroxysmal atrial fibrillation) Status: Chronic Comment: DCCV in August 2017; (7) Benign essential hypertension Status: Chronic (8) Obesity (BMI 30-39.9) Status: Chronic (9) ZAID (obstructive sleep apnea) Status: Chronic (10) CHF (congestive heart failure) Status: Chronic Qualifiers: Heart failure type: diastolic Heart failure chronicity: chronic Qualified Code(s): I50.32 - Chronic diastolic (congestive) heart failure (11) VTE (venous thromboembolism) Status: Chronic (12) Cardiomyopathy Status: Chronic Qualifiers: Cardiomyopathy type: unspecified Qualified Code(s): I42.9 - Cardiomyopathy, unspecified (13) DVT (deep venous thrombosis) Status: Chronic Qualifiers: DVT location: lower extremity Affected thrombotic vein of extremity: unspecified vein of extremity Chronicity: unspecified Laterality: right Qualified Code(s): I82.401 - Acute embolism and thrombosis of unspecified deep veins of right lower extremity History of Present Illness Date of Admission: 07/21/19 Chief Complaint: Chest pain The patient is a 63 y/o M w/ PMHx: Obesity, Hx DVT, HTN, HLD, PAF, ? Diastolic CHF, Non-ischemic Cardiomyopathy, ZAID, CKD stage III who presents to the [facility] ED on 07/21/19 with history of nearly 1 year of ongoing chronic coughing with occasional dyspnea which has been aggressively evaluated by pulmonary medicine as well as cardiology with no clear etiology with now onset over the last several days progressively worsening dyspnea as well as more progressive cough although clear sputum, dyspnea worse with any exertion with increased fatigue, malaise and weakness with concurrent low-grade temperature now in addition to now onset x2 days epigastric and diffuse chest stabbing pain rated 10 out of 10 with occurrence, unable to give clear timeline of how long it lasts with worsening dyspnea, diaphoresis as well as nausea without emesis when it does occur although unclear if more progressive with activity with no clear alleviating factors prompting eventual ED presentation. Patient notes that he has not slept well because of the severity of his ongoing coughing. He states that he normally does wear a BiPAP but has not been able to do so secondary to his coughing. Patient denies any orthopnea. He does state over the last several months he has gained weight but denies any specific edema associated. Work-up in the ED included T1 100.7, heart rate 102, BP 121/73, respiratory rate 25, initially 89% on room air with improvement to 95% on 2 L nasal cannula, CBC with WC 12.8, hemoglobin 11.8, platelet 200 with left shift, d-dimer pending, CMP with BUN/creatinine 26/2.15, lactic acid 2.3, calcium 7.9, total bilirubin 2, direct bilirubin 0.69, AST/ALT 48/25, alk phos 172, troponin 0 0.058, BNP 552.7, lipase 98, blood culture x2 pending per ED, chest x-ray with left basilar atelectasis and/or scarring with prominent interstitial markings possibly mild edema, EKG with sinus tachycardia with no acute evidence of ischemia. In the ED patient ministered Levaquin, aspirin therapy. Past Medical History Past Medical History (Chronic Problems): Chronic Problems (Last Reviewed 07/05/19 @ 14:39 by Ariana Quijano) HLD (hyperlipidemia) (Chronic) Restrictive airway disease (Chronic) Essential hypertension (Chronic) History of congestive heart failure (Chronic) History of cardiomyopathy (Chronic) History of atrial fibrillation (Chronic) Valvular heart disease (Chronic) Non-ischemic cardiomyopathy (Chronic) Cardiomyopathy in other diseases classified elsewhere (Chronic) PAF (paroxysmal atrial fibrillation) (Chronic) [facility] in August 2017; GOMEZ (dyspnea on exertion) (Chronic) Obesity (BMI 30-39.9) (Chronic) Long-term use of high-risk medication (Chronic) Chronic atrial fibrillation (Chronic) Noncompliant Xarelto Benign essential hypertension (Chronic) Erectile dysfunction (Chronic) Obesity (BMI 30-39.9) (Chronic) ZAID (obstructive sleep apnea) (Chronic) CHF (congestive heart failure) (Chronic) VTE (venous thromboembolism) (Chronic) Cardiomyopathy (Chronic) CAD (coronary artery disease) (Chronic) Dyspnea (Chronic) DVT (deep venous thrombosis) (Chronic) Medical History: Medical History (Last Reviewed 07/05/19 @ 14:39 by Ariana Quijano) Essential hypertension (Chronic) I10 History of congestive heart failure (Chronic) Z86.79 History of cardiomyopathy (Chronic) Z86.79 History of atrial fibrillation (Chronic) Z86.79 Non-ischemic cardiomyopathy (Chronic) I42.8 PAF (paroxysmal atrial fibrillation) (Chronic) I48.0 DCCV in August 2017; History of cardioversion (Resolved) Onset Date: ~08/2017 Z98.890 History of echocardiogram (Resolved) Onset Date: ~08/2017 Z92.89 History of echocardiogram (Acute) Onset Date: ~01/2013 Z92.89 Erectile dysfunction (Chronic) N52.9 Obesity (BMI 30-39.9) (Chronic) E66.9 ZAID (obstructive sleep apnea) (Chronic) G47.33 DVT (deep venous thrombosis) (Chronic) I82.409 Renal insufficiency (Acute) N28.9 Allergies cefuroxime axetil [From Ceftin] Allergy (Verified 07/21/19 19:59) Rash hydrocodone bitartrate [From Vicodin] Allergy (Verified 07/21/19 19:59) Rash Penicillins Allergy (Verified 07/21/19 19:59) Hives DIFFICULTY BREATHING carvedilol [From Coreg] Adverse Reaction (Verified 07/21/19 19:59) black out lisinopril Adverse Reaction (Verified 07/21/19 19:59) cough Home Medications: Ambulatory Orders Medication Instructions Recorded Omeprazole 40 mg PO DAILY 08/13/18 amiodarone 100 mg tablet 100 mg PO DAILY #30 tab 10/12/18 aspirin 81 mg tablet,delayed 81 mg PO QDAY #30 tab 10/12/18 release Metoprolol Tartrate [Lopressor 100 mg PO BID 11/03/18 (Beta Helen)] pravastatin 20 mg tablet 20 mg PO QHS #30 tab 04/12/19 albuterol sulfate HFA 90 2 puff INHALATION Q4H PRN #18 g 04/14/19 mcg/actuation aerosol inhaler furosemide 80 mg tablet 80 mg PO BID tab 04/29/19 losartan 25 mg tablet 25 mg PO QHS tab 05/05/19 Amlodipine Besylate 5 mg PO QHS 06/14/19 Fexofenadine HCl [Shu Allergy] 180 mg PO DAILY 10/16/19 Fluticasone 0.05% [Flonase Nasal 2 spray NASAL DAILY 07/21/19 [place]] Metolazone [Zaroxolyn] 5 mg PO QODAY 07/21/19 Montelukast [Singulair] 10 mg PO DAILY 07/21/19 Potassium Chloride 20 meq PO DAILY 07/21/19 Surgical History: Surgical History (Last Updated 07/05/19 @ 14:40 by Ariana Quijano) H/O cardiac catheterization (Resolved) Onset Date: ~06/2009 Z98.890 History of esophagogastroduodenoscopy (EGD) Onset Date: ~06/18/19 Z98.890 History of detached retina repair Z98.890, Z86.69 History of left inguinal hernia repair Z98.890, Z87.19 Surgical History: - - Detached retinal repair, left inguinal hernia. Psychiatric History: No pertinent psych hx Lives: Spouse/ Significant Other Smoking Status: Never smoker Tobacco Use: Non-smoker Alcohol: None Drugs: None - *Family History Maternal Family History: Family History (Last Reviewed 07/05/19 @ 14:39 by Ariana Quijano) Mother CAD (coronary artery disease) History Items: Heart Disease Paternal Family History: Family History (Last Reviewed 07/05/19 @ 14:39 by Ariana Quijano) Mother CAD (coronary artery disease) History Items: Cancer, Heart Disease, Pulmonary Disease Review of Systems Constitutional: Reports: Fever, Malaise, Weakness, Fatigue. Denies: Chills, Weight Change HEENT: Denies: Head Aches, Sinus Congestion, Sinus Drainage Cardiovascular: Reports: Chest Pain, Edema. Denies: Chest Pressure, Chest Tightness, Light Headedness, Orthopnea, Palpitations, Syncope Respiratory: Reports: Cough, Shortness of Breath, Shortness of breath at rest, Shortness of breath upon exertion, Sputum production, Wheezing Gastrointestinal: Reports: Nausea. Denies: Abdominal Pain, Vomiting Genitourinary: Denies: Dysuria Musculoskeletal: Reports: Back Pain, Joint Pain, Muscle pain. Denies: Joint Tenderness Skin: Denies: Rash, Wounds Neurological: Denies: Numbness, Tingling, Focal weakness Psychiatric: Denies: Anxiety, Depression, Homicidal Ideations, Suicidal Ideations Hematologic/ Lymphatic: Reports: Anemia, Easy Bruising, Easy Bleeding VTE Information - Inpt Only VTE Present on Admission: No VTE Mechan Device Prophylaxis: SCD's VTE Pharm Prophylaxis ordered?: Yes Patient Problems: Active and Suspected Problems (Last Reviewed 07/05/19 @ 14:39 by Ariana Quijano) Severe sepsis (Acute) Pneumonia (Acute) Chest pain (Acute) Subjective: Patient laying in the ED bed, flat, no acute distress, no evidence of respiratory difficulties, no coughing during examination, notes chest sharp stabbing pain has improved. Objective: Physical Examination: General: awake, alert, oriented x 3 and cooperative, seated upright in the ED bed in no apparent distress, fatigued appearance. Skin: normal color, turgor, no icterus, cyanosis. HEENT: AT/NC, EOMI, PERRLA, moderately dry MM, no carotid bruits or JVD noted; however, habitus makes examination difficult with thickened neck. Lungs: Bilaterally diffusely diminished breath sounds, greater bases, moderate effort, soft and distant and expiratory wheezing bilaterally, no coughing on examination. Heart: Regular rate and rhythm; no gallop, rub audible. Abdomen: soft, obese, NTTP, ND, normal BS, no HSM; however habitus makes examination difficult. Extremities: no cyanosis, clubbing, bilateral ankle edema, not severe. Neurological: patient awake, alert, oriented x 3; cognitive function intact; pupils equally reactive to light and accomodation; cranial nerves II-XII grossly normal, moving all 4 extremities, no focal deficits, strength moderately global decrease secondary to ongoing complaints and acute presentation. Psychiatric: affect appears normal, no acute evidence of depressive or anxiety feelings. - Physical Exam Vital Signs Temp Pulse Resp BP Pulse Ox 100.7 F H 102 H 25 H 121/73 H 95 07/21/19 20:03 07/21/19 19:44 07/21/19 19:44 07/21/19 19:44 07/21/19 20:03 Oxygen Flow Rate (L/min) 2 Oxygen Delivery Method Nasal Cannula Weight: 283 lb 8.231 oz Body Mass Index (BMI) 38.4 Finger Stick Blood Glucose 86 Laboratory Tests Past 24 Hrs 07/21/19 07/21/19 07/21/19 19:55 19:55 19:55 WBC 12.8 H RBC 3.71 L Hgb 11.8 L Hct 36.1 L MCV 97.3 H MCH 31.8 MCHC 32.7 RDW Std Deviation 51.6 H RDW Coeff of Carlos 14.3 Plt Count 200 MPV 10.6 Immature Gran % (Auto) 0.700 Neut % (Auto) 79.5 H Lymph % (Auto) 11.5 L Brule % (Auto) 8.1 Eos % (Auto) 0.1 Baso % (Auto) 0.1 Absolute Neuts (auto) 10.2 H Absolute Lymphs (auto) 1.47 Nucleated RBC % 0 D-Dimer Quant (PE/DVT) Cancelled Sodium 138 Potassium 4.3 Chloride 99 Carbon Dioxide 30.0 Anion Gap 9 BUN 26 H Creatinine 2.15 H Estim Creat Clear Calc 39.60 Est GFR (MDRD) Af Amer 40 L Est GFR (MDRD) Non-Af 33 L BUN/Creatinine Ratio 12.1 Glucose 98 Lactic Acid Calcium 7.9 L Total Bilirubin Direct Bilirubin AST ALT Alkaline Phosphatase Troponin I 0.058 H B-Natriuretic Peptide Total Protein Albumin Globulin Lipase 07/21/19 07/21/19 07/21/19 19:55 19:55 19:55 WBC RBC Hgb Hct MCV MCH MCHC RDW Std Deviation RDW Coeff of Carlos Plt Count MPV Immature Gran % (Auto) Neut % (Auto) Lymph % (Auto) Brule % (Auto) Eos % (Auto) Baso % (Auto) Absolute Neuts (auto) Absolute Lymphs (auto) Nucleated RBC % D-Dimer Quant (PE/DVT) Sodium Potassium Chloride Carbon Dioxide Anion Gap BUN Creatinine Estim Creat Clear Calc Est GFR (MDRD) Af Amer Est GFR (MDRD) Non-Af BUN/Creatinine Ratio Glucose Lactic Acid 2.3 H Calcium Total Bilirubin 2.00 H Direct Bilirubin 0.69 H AST 48 H ALT 25 Alkaline Phosphatase 172 H Troponin I B-Natriuretic Peptide 552.7 H Total Protein 6.8 Albumin 2.4 L Globulin 4.4 H Lipase 07/21/19 07/21/19 19:55 20:10 WBC RBC Hgb Hct MCV MCH MCHC RDW Std Deviation RDW Coeff of Carlos Plt Count MPV Immature Gran % (Auto) Neut % (Auto) Lymph % (Auto) Brule % (Auto) Eos % (Auto) Baso % (Auto) Absolute Neuts (auto) Absolute Lymphs (auto) Nucleated RBC % D-Dimer Quant (PE/DVT) Pending Sodium Potassium Chloride Carbon Dioxide Anion Gap BUN Creatinine Estim Creat Clear Calc Est GFR (MDRD) Af Amer Est GFR (MDRD) Non-Af BUN/Creatinine Ratio Glucose Lactic Acid Calcium Total Bilirubin Direct Bilirubin AST ALT Alkaline Phosphatase Troponin I B-Natriuretic Peptide Total Protein Albumin Globulin Lipase 98 Assessment/Plan All Active Problems (Last Reviewed 07/05/19 @ 14:39 by Ariana Quijano) Severe sepsis (Acute) Pneumonia (Acute) Chest pain (Acute) Cough (Acute) Obesity (Acute) History of cardioversion (Resolved ~08/2017) H/O cardiac catheterization (Resolved ~06/2009) History of echocardiogram (Resolved ~08/2017) History of echocardiogram (Acute ~01/2013) Chest pain (Acute) Renal insufficiency (Acute) Syphilis (Resolved) Cerebrovascular disease (Ruled-out) The patient is a 63 y/o M w/ PMHx: Obesity, Hx DVT, HTN, HLD, PAF, ? Diastolic CHF, Non-ischemic Cardiomyopathy, ZAID, CKD stage III who presents to the [facility] ED on 07/21/19 with several days of progressively worsening dyspnea, more progressive cough although clear sputum, dyspnea worse with any exertion with increased fatigue, malaise and weakness with concurrent low-grade temperature now in addition to now onset x2 days epigastric and diffuse chest stabbing pain rated 10 out of 10 with occurrence, unable to give clear timeline of how long it lasts with worsening dyspnea, diaphoresis as well as nausea without emesis when it does occur although unclear if more progressive with activity with no clear alleviating factors prompting eventual ED presentation. 1. Acute Severe Sepsis secondary to ? Pneumonia w/ Hypoxia, ? Bronchitis: Patient with ongoing chronic cough although currently notes more severe, minimally productive sputum primarily clear, ongoing now worsening wheezing and noted on examination with low-grade temperatures with worsening dyspnea and potentially pleuritic discomfort therefore in the ED administered Levaquin, will admit to PCU given mildly elevated troponin with atypical chest pain complaints, maintain on oxygen with wean as tolerated to room air, continue ATC duonebs, PRN albuterol, given wheezing will initiate concurrent solumedrol regimen pending further assessments, maintained on IV Levaquin given allergies, HOB, IS parameters w/ pending sputum cultures respiratory viral panel and urine antigens, trend LA per facility protocol. Bld cx x 2 obtained in the ED. Plan repeat CXR in AM. Of note, patient did have Chest CT 10/2018 without contrast with noted small bilateral pleural effusions, bullous changes in the anterior aspect of the lingular segments of the left upper lobe as well as interstitial scarring both lower lobes and the lateral aspect of the upper lungs with mild thickening of the right major fissure and small bilateral pleural effusions. 2. Chest Pain with indeterminate cardiac enzyme: ED w/ troponin 0 0.058, BNP 552.7, chest x-ray with left basilar atelectasis and/or scarring with prominent interstitial markings possibly mild edema, EKG with sinus tachycardia with no acute evidence of ischemia. Will place on a monitored bed to assure no acute myocardial infarction with serial cardiac enzymes and EKGs. Given patient underlying history of expect elevated d-dimer however extremely elevated with history of prior DVT, unable to obtain CTPA given renal function therefore pending bilateral lower extremity DVT ultrasounds with planned placement on heparin drip pending these. Will not pursue cardiac stress testing given other items that need addressed prior. ASA, NG, morphine. 3. Exertional dyspnea with questionable pulmonary congestion w/ ? Diastolic CHF: Patient with ongoing history of cough x1 year with thorough cardiac and pulmonary evaluation, 05/13/19 ECHO w/ mild concentric LVH, EF 60%, moderately enlarged LA, mild MVI, mild TBI, mild focal AV calcification, trivial MVI, trivial TBI, transmitral Doppler flow suggestive of impaired relaxation of left ventricle, lower suspicion of failure, will continue cardiac evaluation as noted #2 and assure that #1 is thoroughly evaluated. Unclear CHF history, ECHO not marked as noted, BNP stable from prior and not severely elevated, given sepsis we will continue to gently judiciously hydrate but repeat CXR in AM and if any concerns may discontinue this infusion. Will maintain patient on aspirin, metoprolol, losartan, Lasix, metolazone. 4. PAF: Patient had previously been on Xarelto but discontinued this secondary to frequent epistaxis, heparin drip as noted has been initiated given patient complaints and presentation with elevated d-dimer, will maintain on aspirin, amiodarone, metoprolol regimen. 5. Hypertension: Continue home regimen including amlodipine, losartan, metoprolol, Lasix, metolazone, PRN hydralazine. 6. Hyperlipidemia: Continue home statin regimen. AM FLP. 7. Chronically elevated bilirubin, liver function tests: Admission total bilirubin 2.0, direct 0.69, AST/ALT 48/25, alk phos 172 with similar noted total bilirubin in the past ranging from 1.8-2, direct bilirubin similar from 0.4 2.9, similar AST elevations into the 40s up to 60s with additionally similarly elevated alk phos ranging 160s to 230s. 8. Chronic Kidney Disease Stage III: Admission BUN/Cr 26/2.15, baseline renal function 1.5-1.8, repeat BMP in AM. 9. Chronic normocytic anemia: Admission hemoglobin 11.8, baseline 11-12, stable, trend. 10. Obesity: Weight loss and lifestyle changes encouraged, nutrition consulted. 11. Hx Prior DVT: Pending bilateral lower extremity DVT ultrasounds in the ED given acute presentation with elevated d-dimer, heparin drip has been initiated will be continued. 12. ZAID: BIPAP q HS. 13. DVT prophylaxis: SCDs, heparin drip as noted. 14. CODE status: Patient states that his and himself have yet to set up healthcare power of assistant prosecuting attorney and living will but are interested in discussing this with case management for further information. Discussed CODE status at length including difference between FULL code, DNR-CCA and DNR-CC status. Following discussions about the differences in these status, requested DNR-CCA, no intubation status. Advanced Care Planning Face to Face Time: 16 minutes. Code Visit Inpatient E&M: 50892 Init Hosp L3 Procedures: 01475 Advncd Care Plan 30 Min
[2019-07-21 21:41] LABS: D-Dimer Quantitative (DVT/PE) 9.26 FEU/ug/m (0.27-0.49)
[2019-07-21] MEDS: levoFLOXacin IV 750 MG/150 ML BAG 100 MG IV (21:44)
[2019-07-21 21:48] LABS: Bacteria 0 SEEN /hpf (None Seen); Color, Urine Yellow (Yellow); Glucose, Dipstick Normal (Normal); Ketone-Dipstick 5 mg/dl (Negative); Leukocyte Esterase-Dipstick 25 /ul (Negative); Mucous, Urine 0 SEEN /hpf (<or=2+); Nitrite-Dipstick Negative (Negative); Occult Blood-Urine Negative /ul (Negative); Protein-Dipstick Negative (Negative); Red Blood Cells-Urine 0 SEEN /hpf (0-5); Specific Gravity, Urine 1.005 (1.002-1.030); Squamous Epithelial Cells - UA 0 SEEN /hpf (0-5); Urine Bilirubin Dipstick Negative (Negative); Urine Clarity Clear (Clear); Urine Urobilinogen 4 mg/dl (Normal)
[2019-07-21 21:51] LABS: White Blood Cells 0-5 SEEN /hpf (0-5)
[2019-07-21 22:00] VITALS: BP 115/74; PULSE 81; RESP 16; TEMP 38.3; O2SAT 94
--- NOTE | 2019-07-21 22:09 | US_ITS ---
STUDY: VENOUS DOPPLER ULTRASOUND - BILATERAL LOWER EXTREMITIES REASON FOR EXAM: Male, 63 years old. TECHNIQUE: Ultrasound evaluation of the deep vein system to include vazquez-scale imaging and compression was performed. Vazquez-scale imaging and Doppler sonographic evaluation, including duplex spectral analysis and qualitative color flow sonography, was performed. COMPARISON: None. FINDINGS: RIGHT LEG Common Femoral Vein: Normal compression, spontaneity and augmentation. Normal color Doppler. Common Femoral Vein/Greater Saphenous Junction: Normal compression, spontaneity and augmentation. Normal color Doppler. Femoral Proximal: Normal compression, spontaneity and augmentation. Normal color Doppler. Femoral Middle: Normal compression, spontaneity and augmentation. Normal color Doppler. Femoral Distal: Normal compression, spontaneity and augmentation. Normal color Doppler. Popliteal Vein: Normal compression, spontaneity and augmentation. Normal color Doppler. Posterior Tibial Vein: Normal compression. Peroneal Vein: Normal compression. LEFT LEG Common Femoral Vein: Normal compression, spontaneity and augmentation. Normal color Doppler. Common Femoral Vein/Greater Saphenous Junction: Normal compression, spontaneity and augmentation. Normal color Doppler. Femoral Proximal: Normal compression, spontaneity and augmentation. Normal color Doppler. Femoral Middle: Normal compression, spontaneity and augmentation. Normal color Doppler. Femoral Distal: Normal compression, spontaneity and augmentation. Normal color Doppler. Popliteal Vein: Normal compression, spontaneity and augmentation. Normal color Doppler. Posterior Tibial Vein: Normal compression. Peroneal Vein: Normal compression. There is echogenic noncompressible focus noted within the greater saphenous veins bilaterally from the mid thighs to the lower calves. US/Venous Duplex Imag/Leonardo Extrem IMPRESSION: No demonstrated deep vein thrombosis. Bilateral thrombosed greater saphenous veins from the midthighs to the lower calves. Electronically Signed: Hope Francisco MD at 23:27 EDT Tel , Service support ,
[2019-07-21 22:29] LABS: Partial Thromboplast Time 29.2 Seconds (24.1-36.2)
[2019-07-21] MEDS: Heparin Injection (Vial) 5,000 UNIT/ML VIAL 10500 UNIT IV (22:58)
[2019-07-21 23:00] VITALS: BP 107/67; PULSE 91; RESP 21; TEMP 36.9; O2SAT 95
[2019-07-21] MEDS: HEPARIN/D5w 25,000 UNITS 25,000 UNITS/250 ML IV.SOLN. 17 UNITS IV (23:03)
--- NOTE | 2019-07-21 23:31 | ED.RN ---
WANTED RESULTS FINALIZED FOR THE VENOUS DUPLEX BEFORE HAVING THE PT GO TO THE FLOOR. RESULTS ARE POSTED DR. JOHNSON WAS PAGED PER PUMPER HELPER. AWAITING FINAL OK FOR FLOOR.
[2019-07-21 23:40] VITALS: BP 113/70; PULSE 87; RESP 16; TEMP 36.8; O2SAT 98
[2019-07-22] VITALS (18 sets, daily range): BP systolic 102–135; BP diastolic 65–81; PULSE 77–101; RESP 16–20; TEMP 36.1–36.7; O2SAT 92–98; BMI 36.2; BMI 38.5
[2019-07-22 00:07] LABS: Magnesium 1.4 mg/dL (1.6-2.6)
--- NOTE | 2019-07-22 00:21 | CPS ---
Discussed with pt. about wearing BiPAP. He said that he has been non-compliant with his home PAP unit and would not like to wear the hospital's machine tonight. Told pt. if he changes his mind to let RN know to let UTILITY OPERATOR aware so machine can be setup. Will wear 3L NC tonight.
[2019-07-22 00:22] LABS: Reflex Lactate? Y
[2019-07-22] MEDS: MethylPREDNISolone 125 MG/2 ML Vial IV (00:39)
[2019-07-22] MEDS: 0.9% Normal Saline 1,000 ML 100 ML IV (00:39)
[2019-07-22] MEDS: Ipratropium/Albuterol Sulfate 3 ML AMPUL.NEB INHALATION ×5 (00:55→22:57)
--- NOTE | 2019-07-22 05:55 | EKG12_ITS ---
Test Reason : CP Blood Pressure : / mmHG Vent. Rate : 103 BPM Atrial Rate : 103 BPM P-R Int : 168 ms QRS Dur : 114 ms QT Int : 366 ms P-R-T Axes : 022 -09 083 degrees QTc Int : 479 ms Sinus tachycardia with occasional Premature ventricular complexes Cannot rule out Anterior infarct , age undetermined Abnormal ECG Confirmed by CAMELIA MARTINES, SOLOMON ([id number]), publication editor JOELLE AGUILAR ([id number]) on 07/28/2019 11:08:50 AM Referred By: SYLVAIN Confirmed By:JOE DENISE MD
--- NOTE | 2019-07-22 05:59 | RAD_ITS ---
STUDY: X-RAY CHEST REASON FOR EXAM: Male, 63 years old. Shortness of breath/chest pain. TECHNIQUE: PA and lateral views of the chest. COMPARISON: Comparison is made with prior examination dated July 21, 2019. FINDINGS: EKG electrodes are seen. Stable elevation of the right hemidiaphragm. Persistent increased markings at the lung bases suggest bibasilar atelectasis and/or infiltrate. There is blunting of the left concerning angle posteriorly. Normal size heart. Normal mediastinum and annamarie. Normal visualized pulmonary arteries. There is atherosclerotic tortuosity of the aortic arch and descending thoracic aorta. There is demineralization of the osseous structures. Normal visualized ribs, clavicles, and shoulders. There is no demonstrated abnormality of the visualized soft tissue structures of the upper abdomen. RAD/Chest PA and Lateral IMPRESSION: Stable increased markings at the lung bases suggestive of residual bibasilar atelectasis and/or early infiltrates. Electronically Signed: Duke Duran, at 12:55 EDT , Service support ,
[2019-07-22 06:44] LABS: Absolute Lymphocyte Count 0.61 X10^3/uL (0.83-4.51); Absolute Neutrophil Count 4.6 X10^3/uL (2.0-7.7); Hematocrit 30.2 % (40-54); Hemoglobin 9.9 g/dL (13.0-16.5); Lymphocyte # 0.61 X10^3/ul (4.0); Lymphocyte % 11.5 % (19-41); Mean Corp Hgb Conc 32.8 g/dL (32-36); Mean Corpuscular Hgb 31.9 pg (27.0-32.0); Mean Corpuscular Volume 97.4 fL (80-94); Mean Platelet Vol. 11.1 fl (6.2-12.0); Monocyte# 0.11 X10^3/uL; Monocyte% 2.1 % (0-10); NRBC Flagged by Analyzer 0 % (0-5); Neutrophil # 4.56 X10^3/uL (2.7-7.7); Neutrophil % 86.2 % (47-70); Platelet Count 110 K/mm3 (150-450); RBC Distribution Width CV 14.6 % (11.6-14.6); RBC Distribution Width SD 51.4 fl (35.1-43.9); White Blood Count 5.3 K/mm3 (4.4-11.0)
[2019-07-22 07:11] LABS: ALB/GLOB Ratio 0.5 RATIO (0.9-2.4); AST(SGOT) 55 U/L (15-37); Alanine Aminotransfer ALT/SGPT 24 U/L (16-61); Alkaline Phosphatase 143 U/L (45-117); Anion Gap 11 (5-15); BUN 30 mg/dL (7-18); BUN/Creat Ratio 14.2 RATIO (10-20); Calcium,Total 7.8 mg/dL (8.5-10.1); Chloride 100 mmol/L (98-107); Cholesterol 86 mg/dL (200); Creatinine, Serum 2.12 mg/dL (0.70-1.30); EST Glomerular Filtration Rate 34 mL/min (>60); Est Glom Filt Rate - Afr Amer 41 mL/min (>60); Estimated Creatinine Clearance 41.35 ml/min; Glucose 125 mg/dL (74-106); High Density Lipoprotein 43 mg/dL; Potassium 3.7 mmol/L (3.5-5.1); Sodium Level 138 mmol/L (136-145); Triglycerides 39 mg/dL; Very Low Density Lipoprotein 8 mg/dL (5-40)
[2019-07-22 07:12] LABS: Partial Thromboplast Time > 250.0 Seconds (24.1-36.2)
[2019-07-22] MEDS: Aspirin E.C. 81 MG Tablet PO (08:02)
[2019-07-22] MEDS: Fluticasone 0.05% 1 SPRAY NASAL.SRY 2 SPRAY NASAL (09:34)
[2019-07-22] MEDS: Loratadine 10 MG Tablet PO (09:37)
[2019-07-22] MEDS: Pantoprazole Sodium 40 MG Tablet PO (09:37)
[2019-07-22] MEDS: Montelukast 10 MG Tablet PO (09:37)
[2019-07-22] MEDS: Amiodarone 200 MG Tablet 100 MG PO (09:37)
[2019-07-22] MEDS: Metoprolol Tartrate 100 MG Tablet PO ×2 (09:38→21:09)
[2019-07-22] MEDS: Furosemide 80 MG Tablet PO ×2 (09:38→17:12)
--- NOTE | 2019-07-22 10:32 | CASEMGMT ---
According to the [place] website, the following are in-network tertiary facilities: [facility], [place], [facility], [facility], [facility], [facility], [facility], [place], [facility], and . Anders SLADE CM
[2019-07-22 10:49] LABS: International Normalized Ratio 1.6; Prothrombin Time (Protime)PT. 19.2 SECONDS (11.7-14.9)
[2019-07-22 10:52] LABS: Ferritin 311 ng/mL (26-388); Iron 19 ug/dL (65-175); Iron Binding Capacity,Total 188 ug/dL (250-450); PERCENT IRON SATURATION 10.1 % (15.0-55.0)
--- NOTE | 2019-07-22 10:53 | NM_ITS ---
CLINICAL: Male, 63 years old. Shortness of breath. NUCLEAR VENTILATION/PERFUSION - LUNG TECHNIQUE: The patient was administered 5 mCi of Tc MAA followed by a perfusion lung scan. The patient was administered 50 mCi of Tc DTPA aerosol followed by a ventilation lung scan. Comparison made to prior chest radiograph dated . COMPARISON STUDIES : Comparison is made with prior chest radiograph done earlier in the day. FINDINGS: The pulmonary perfusion study demonstrates uniform perfusion throughout both lung quintana. There are no demonstrated segmental or subsegmental perfusion defects The ventilation study demonstrates uniform ventilation throughout both lung quintana. There are no segmental or subsegmental ventilation abnormalities. NM/Lung Scan Vent/Perf IMPRESSION: Normal 99m Tc MAA pulmonary perfusion Tc DTPA aerosol ventilation imaging survey, according to revised PIOPED interpretive criteria. Electronically Signed: Duke Duran, at 12:54 EDT , Service support ,
--- NOTE | 2019-07-22 11:07 | US_ITS ---
HISTORY: Elevated LFTs TECHNIQUE: Diez scale and color doppler imaging was performed of the pancreas, liver, and gallbladder. COMPARISON: CT scan of the lumbar spine from January 29, 2019 minimally demonstrates the posterior medial abdomen FINDINGS: # of images incl. paperwork: 79 Liver is cirrhotic Ascites is present No gallstones or biliary dilatation. Gallbladder wall measures 6 mm. Common bile duct measures 2 mm. No tenderness upon insonation the gallbladder. Visualized pancreas is normal in appearance. Right kidney is normal in size and appearance. Visualized abdominal aorta has normal caliber. IVC is patent. Hepatopedal flow is present within the central portal vein. US/Abdomen Limited IMPRESSION: Cirrhosis with ascites. Gallbladder wall thickening. Gallbladder wall thickening could be due to a calculus cholecystitis, however, could also be due to ascites, and could be due to cirrhosis. at [id number] Reported and signed by: Larry Calvo MD Electronically Signed: Larry Calvo MD at 22:15 EDT Tel , Service support ,
[2019-07-22 11:27] LABS: Vitamin B12 338 pg/mL (211-911)
--- NOTE | 2019-07-22 12:27 | CON.PCM_ITS ---
<Gosia Boyle - Last Filed: 07/22/19 12:27> Problem List (1) Elevated troponin Status: Acute (2) Chest pain Status: Acute (3) Benign essential hypertension Status: Chronic (4) CHF (congestive heart failure) Status: Chronic Qualifiers: Heart failure type: diastolic Heart failure chronicity: chronic Qualified Code(s): I50.32 - Chronic diastolic (congestive) heart failure (5) PAF (paroxysmal atrial fibrillation) Status: Chronic Comment: DCCV in August 2017; Reason for Consult Date of Consultation: 07/22/19 History of Present Illness: The patient is a 63 year old M we were asked to consult for an abnormal troponin. Patient does have a history of paroxysmal atrial fibrillation post cardioversion in August 2017, nonischemic related cardiomyopathy, minimal to mild coronary artery disease, hypertension, diastolic dysfunction, history of DVT, renal insufficiency, obstructive sleep apnea. Patient presented to the emergency room yesterday for increased shortness of breath and a chronic cough. Patient states that over the last few weeks his cough has returned. Notes that he has had an increase in shortness of breath and yesterday just felt like he could not go any further and that is why he presented to the emergency room. He does have chest discomfort however this worsens with deep breathing. It is noted at rest, with cough and with some exertion. He does have shortness of breath with exertion and he does have orthopnea. He states that he has not been able to tolerate his CPAP due to his cough over the last few weeks. He also notes that he has not been compliant with his evening dose of diuretics. He is not aware of any palpitations. He does not have any blood in his urine or stool that he is aware of. He notes that he had lower extremity edema that he felt did extend up into his abdomen yesterday prior to coming in. His was encouraged him to take his second dose of diuretics. His primary care doctor did start him on metolazone that he was to take every other day. Patient is known to me from frequent office visits over the summer for lower extremity edema and concerns over a cough. Echocardiogram done in 2018 demonstrated mild concentric LVH, left atrium is moderately enlarged, mild mitral insufficiency, mild tricuspid insufficiency, trivial aortic insufficiency, trivial pulmonic insufficiency. Unable to estimate RV systolic pressure. Patient had a pharmacologic nuclear stress test in 2018 that was negative for ischemia. Past Medical History Allergies/Adverse Reactions: Allergies cefuroxime axetil [From Ceftin] Allergy (Verified 07/21/19 19:59) Rash hydrocodone bitartrate [From Vicodin] Allergy (Verified 07/21/19 19:59) Rash Penicillins Allergy (Verified 07/21/19 19:59) Hives DIFFICULTY BREATHING carvedilol [From Coreg] Adverse Reaction (Verified 07/21/19 19:59) black out lisinopril Adverse Reaction (Verified 07/21/19 19:59) cough Home Medications: Ambulatory Orders Medication Instructions Recorded Omeprazole 40 mg PO DAILY 08/13/18 amiodarone 100 mg tablet 100 mg PO DAILY #30 tab 10/12/18 aspirin 81 mg tablet,delayed 81 mg PO QDAY #30 tab 10/12/18 release Metoprolol Tartrate [Lopressor 100 mg PO BID 11/03/18 (Beta Helen)] pravastatin 20 mg tablet 20 mg PO QHS #30 tab 04/12/19 albuterol sulfate HFA 90 2 puff INHALATION Q4H PRN #18 g 04/14/19 mcg/actuation aerosol inhaler furosemide 80 mg tablet 80 mg PO BID tab 04/29/19 losartan 25 mg tablet 25 mg PO QHS tab 05/05/19 Amlodipine Besylate 5 mg PO QHS 06/14/19 Fexofenadine HCl [Shu Allergy] 180 mg PO DAILY 07/21/19 Fluticasone 0.05% [Flonase Nasal 2 spray NASAL DAILY 07/21/19 [place]] Metolazone [Zaroxolyn] 5 mg PO QODAY 07/21/19 Montelukast [Singulair] 10 mg PO DAILY 07/21/19 Potassium Chloride 20 meq PO DAILY 07/21/19 Past Medical History (Chronic Problems): Chronic Problems (Last Updated 07/22/19 @ 10:25 by Darline Turcios MD) Chronic atrial fibrillation (Chronic) Noncompliant Xarelto Benign essential hypertension (Chronic) CHF (congestive heart failure) (Chronic) VTE (venous thromboembolism) (Chronic) Cardiomyopathy (Chronic) CAD (coronary artery disease) (Chronic) Long-term use of high-risk medication (Chronic) Obesity (BMI 30-39.9) (Chronic) Valvular heart disease (Chronic) Restrictive airway disease (Chronic) HLD (hyperlipidemia) (Chronic) Non-ischemic cardiomyopathy (Chronic) PAF (paroxysmal atrial fibrillation) (Chronic) [facility] in August 2017; Erectile dysfunction (Chronic) Obesity (BMI 30-39.9) (Chronic) ZAID (obstructive sleep apnea) (Chronic) DVT (deep venous thrombosis) (Chronic) Surgical History: - - Detached retinal repair, left inguinal hernia. Psychiatric History: No pertinent psych hx - *Family History Maternal Family History: Family History (Last Reviewed 07/05/19 @ 14:39 by Ariana Quijano) Mother CAD (coronary artery disease) History Items: Heart Disease Paternal Family History: Family History (Last Reviewed 07/05/19 @ 14:39 by Ariana Quijano) Mother CAD (coronary artery disease) History Items: Cancer, Heart Disease, Pulmonary Disease Lives: Spouse/ Significant Other Smoking Status: Never smoker Tobacco Use: Non-smoker Alcohol: None Drugs: None Review of Systems - Review of Systems General: Reports: Fatigue, Weakness HEENT: Denies: Vision Change Cardiovascular: Reports: Chest Discomfort - see HPI, Shortness of Breath, Shortness of Breath with Exertion, Orthopnea, Peripheral Edema Respiratory: Reports: Cough, Shortness of Breath Gastrointestinal: Denies: Indigestion, Heart Burn Genitourinary: Denies: Dysuria, Hematuria Skin: Denies: Rash Neurological: Denies: Dizziness Objective: Vital Signs Temp Pulse Resp BP Pulse Ox 98.0 F 101 H 16 109/76 93 07/22/19 09:25 07/22/19 09:38 07/22/19 09:25 07/22/19 09:38 07/22/19 09:25 Oxygen Flow Rate (L/min) 3 Oxygen Delivery Method Room Air Weight: 274 lb 0.553 oz Body Mass Index (BMI) 36.2 Finger Stick Blood Glucose 86 Intake and Output for Last 24 Hours 07/20/19 07/21/19 07/22/19 23:59 23:59 23:59 Intake Total 219.48 / 219.48 688.77 / 688.77 Balance 219.48 / 219.48 688.77 / 688.77 General: Healthy Appearing, Awake, Alert, Oriented x 3, No Acute Distress HEENT: Atraumatic, Normocephalic Oral: Moist Mucosa, Poor Dentition Neck: Supple, Positive JVD Lungs: Clear to auscultation Cardiovascular: Regular Rhythm, Normal S1, Normal S2, No Murmurs, No Rubs, No Gallops Vascular: No Carotid Bruits, Normal Radial Pulses, Normal Dorsalis Pedal Pulse Abdomen: Bowel Sounds Present, Soft, Non Tender, Obese Extremities: Bilateral Edema +1 Neurological: No Focal Motor or Sensory Deficit, CN II-XII Intact Psych/Mental Status: Appropriate, Normal Affect 07/21/19 19:55: WBC 12.8 H, RBC 3.71 L, Hgb 11.8 L, Hct 36.1 L, MCV 97.3 H, MCH 31.8, MCHC 32.7, Plt Count 200, MPV 10.6, Immature Gran % (Auto) 0.700, Neut % (Auto) 79.5 H, Lymph % (Auto) 11.5 L, Towns % (Auto) 8.1, Eos % (Auto) 0.1, Baso % (Auto) 0.1, Absolute Neuts (auto) 10.2 H, Nucleated RBC % 0 07/21/19 19:55: D-Dimer Quant (PE/DVT) Cancelled 07/21/19 19:55: Sodium 138, Potassium 4.3, Chloride 99, Carbon Dioxide 30.0, Anion Gap 9, BUN 26 H, Creatinine 2.15 H, Est GFR (MDRD) Af Amer 40 L, Est GFR (MDRD) Non-Af 33 L, BUN/Creatinine Ratio 12.1, Glucose 98, Calcium 7.9 L, Troponin I 0.058 H 07/21/19 19:55: B-Natriuretic Peptide 552.7 H 07/21/19 19:55: Lactic Acid 2.3 H 07/21/19 19:55: Total Bilirubin 2.00 H, Direct Bilirubin 0.69 H 07/21/19 19:55: Magnesium 1.4 L 07/21/19 20:10: D-Dimer Quant (PE/DVT) 9.26 H* 07/21/19 20:10: APTT 29.2 07/21/19 21:37: Urine Color Yellow, Urine Clarity Clear, Urine pH 7.0, Ur Specific Marshall 1.005, Urine Protein Negative, Urine Glucose (UA) Normal, Urine Ketones 5 H, Urine Occult Blood Negative, Urine Nitrite Negative, Urine Bilirubin Negative, Urine Urobilinogen 4 H, Ur Leukocyte Esterase 25 H, Urine RBC 0 SEEN, Urine WBC 0-5 SEEN 07/22/19 00:40: Troponin I 0.120 H 07/22/19 00:40: Lactic Acid 2.0 07/22/19 03:10: Troponin I 0.126 H 07/22/19 05:25: WBC 5.3, RBC 3.10 L, Hgb 9.9 L, Hct 30.2 L, MCV 97.4 H, MCH 31.9, MCHC 32.8, Plt Count 110 L, MPV 11.1, Immature Gran % (Auto) 0.200, Neut % (Auto) 86.2 H, Lymph % (Auto) 11.5 L, Towns % (Auto) 2.1, Eos % (Auto) 0.0, Baso % (Auto) 0.0, Absolute Neuts (auto) 4.6, Nucleated RBC % 0 07/22/19 05:25: Sodium 138, Potassium 3.7, Chloride 100, Carbon Dioxide 27.0, Anion Gap 11, BUN 30 H, Creatinine 2.12 H, Est GFR (MDRD) Af Amer 41 L, Est GFR (MDRD) Non-Af 34 L, BUN/Creatinine Ratio 14.2, Glucose 125 H, Calcium 7.8 L, Total Bilirubin 1.80 H, Troponin I 0.113 H, Triglycerides 39, Cholesterol 86, LDL Cholesterol 35, VLDL Cholesterol 8, HDL Cholesterol 43 07/22/19 05:25: APTT > 250.0 H* 07/22/19 05:25: Iron 19 L, TIBC 188 L, Iron Saturation 10.1 L, Ferritin 311 07/22/19 05:25: PT 19.2 H, INR 1.6 Rhythm: EKG: ECHO: Stress Test: Cardiac Cath: PCI: CT Surgery: Holter monitor: EPS: PPM: CXR:Left basilar atelectasis and/or scarring. Prominent interstitial markings, these may be chronic in nature however cannot exclude mild edema. Chest CT Scan: Assessment/Plan 1. Indeterminant troponin: Patient is noted to have an indeterminate troponin. His chest pain is atypical. Patient had a stress test last year that was negative for ischemia, heart catheterization from 10 years ago demonstrated minimal to mild disease. Feel that this is likely not cardiac related for the elevated troponin. Do not feel that any additional cardiac tests need to be done at this time. Also hesitant to pursue a heart catheterization for his determinant troponin and atypical chest pain due to his renal insufficiency. 2. Shortness of breath: Patient shortness of breath could be multifactorial ho wever it is noted that he is cardiac, he was not tachycardic during his office visit with us in May. With his elevated d-dimer would recommend a VQ scan over a chest CT due to his renal insufficiency. 3. Paroxysmal atrial fibrillation: Patient is in sinus rhythm currently. He is not on any rate limiting medication although he is on amiodarone at 100 mg daily. Would continue with this medication. He has stopped his Xarelto a few months ago. Ideally patient should be restarted on this. However it is noted that he is slightly anemic and his hemoglobin has dropped from yesterday to toda y. If we were to resume this would recommend close follow-up on his blood counts. If he continues to have lower counts or has bleeding issues would discontinue this. 4. Anemia: As mentioned above it is noted that his hemoglobin did drop slightly from yesterday, would recommend close follow-up on this if we are to resume his factor X a inhibitor. His hemoglobin does continue to trend downward his anticoagulation may be discontinued. 5. Lower extremity edema: Patient's lower extremity edema could be related to his diastolic dysfunction and noncompliance of his diuretics. It is noted that he does have hypo-albumin anemia and slightly elevated liver function tests, this could also be contributing to his lower extremity edema. Would consider abdominal ultrasound to evaluate for any hepatic issues. 6. Chronic kidney disease: It is noted that his renal function is trending upwards. Would recommend some IV fluids however would also continue his diuretics. With his renal issues. Would continue close follow-up with this. 7: Hypertension: Will continue home medications. This patient has been discussed with Dr. Javier, he agrees with plan of care. <Coy Javier - Last Filed: 07/22/19 16:38> Reason for Consult History of Present Illness: The patient is a 63 year old M [] Past Medical History - *Family History Maternal Family History: Family History (Last Reviewed 07/05/19 @ 14:39 by Ariana Quijano) Mother CAD (coronary artery disease) Paternal Family History: Family History (Last Reviewed 07/05/19 @ 14:39 by Ariana Quijano) Mother CAD (coronary artery disease) Objective: Vital Signs Temp Pulse Resp BP Pulse Ox 97.9 F 88 20 H 123/72 H 92 07/22/19 15:11 07/22/19 15:24 07/22/19 15:24 07/22/19 15:11 07/22/19 15:11 Oxygen Flow Rate (L/min) 3 Oxygen Delivery Method Room Air Weight: 274 lb 0.553 oz Body Mass Index (BMI) 36.2 Finger Stick Blood Glucose 86 Intake and Output for Last 24 Hours 07/20/19 07/21/19 07/22/19 23:59 23:59 23:59 Intake Total 219.48 / 219.48 / Balance 219.48 / 219.48 / 07/21/19 19:55: WBC 12.8 H, RBC 3.71 L, Hgb 11.8 L, Hct 36.1 L, MCV 97.3 H, MCH 31.8, MCHC 32.7, Plt Count 200, MPV 10.6, Immature Gran % (Auto) 0.700, Neut % (Auto) 79.5 H, Lymph % (Auto) 11.5 L, Towns % (Auto) 8.1, Eos % (Auto) 0.1, Baso % (Auto) 0.1, Absolute Neuts (auto) 10.2 H, Nucleated RBC % 0 07/21/19 19:55: D-Dimer Quant (PE/DVT) Cancelled 07/21/19 19:55: Sodium 138, Potassium 4.3, Chloride 99, Carbon Dioxide 30.0, Anion Gap 9, BUN 26 H, Creatinine 2.15 H, Est GFR (MDRD) Af Amer 40 L, Est GFR (MDRD) Non-Af 33 L, BUN/Creatinine Ratio 12.1, Glucose 98, Calcium 7.9 L, Troponin I 0.058 H 07/21/19 19:55: B-Natriuretic Peptide 552.7 H 07/21/19 19:55: Lactic Acid 2.3 H 07/21/19 19:55: Total Bilirubin 2.00 H, Direct Bilirubin 0.69 H 07/21/19 19:55: Magnesium 1.4 L 07/21/19 20:10: D-Dimer Quant (PE/DVT) 9.26 H* 07/21/19 20:10: APTT 29.2 07/21/19 21:37: Urine Color Yellow, Urine Clarity Clear, Urine pH 7.0, Ur Specific Marshall 1.005, Urine Protein Negative, Urine Glucose (UA) Normal, Urine Ketones 5 H, Urine Occult Blood Negative, Urine Nitrite Negative, Urine Bilirubin Negative, Urine Urobilinogen 4 H, Ur Leukocyte Esterase 25 H, Urine RBC 0 SEEN, Urine WBC 0-5 SEEN 07/22/19 00:40: Troponin I 0.120 H 07/22/19 00:40: Lactic Acid 2.0 07/22/19 03:10: Troponin I 0.126 H 07/22/19 05:25: WBC 5.3, RBC 3.10 L, Hgb 9.9 L, Hct 30.2 L, MCV 97.4 H, MCH 31.9, MCHC 32.8, Plt Count 110 L, MPV 11.1, Immature Gran % (Auto) 0.200, Neut % (Auto) 86.2 H, Lymph % (Auto) 11.5 L, Towns % (Auto) 2.1, Eos % (Auto) 0.0, Baso % (Auto) 0.0, Absolute Neuts (auto) 4.6, Nucleated RBC % 0 07/22/19 05:25: Sodium 138, Potassium 3.7, Chloride 100, Carbon Dioxide 27.0, Anion Gap 11, BUN 30 H, Creatinine 2.12 H, Est GFR (MDRD) Af Amer 41 L, Est GFR (MDRD) Non-Af 34 L, BUN/Creatinine Ratio 14.2, Glucose 125 H, Calcium 7.8 L, Total Bilirubin 1.80 H, Troponin I 0.113 H, Triglycerides 39, Cholesterol 86, LDL Cholesterol 35, VLDL Cholesterol 8, HDL Cholesterol 43 07/22/19 05:25: APTT > 250.0 H* 07/22/19 05:25: Iron 19 L, TIBC 188 L, Iron Saturation 10.1 L, Ferritin 311 07/22/19 05:25: PT 19.2 H, INR 1.6 07/22/19 13:05: APTT 78.9 H Rhythm: EKG: ECHO: Stress Test: Cardiac Cath: PCI: CT Surgery: Holter monitor: EPS: PPM: CXR: Chest CT Scan: Assessment/Plan Since seen, evaluated and discussed with ROBERTO Wharton. Please see Gosia's note for full details. I agree with her note. In brief, patient's chest pain sounds pleuritic by history. No cardiac cath is recommended at this time. He has had a cardiac cath in the past that did not show significant CAD and had a stress test last year which was negative for ischemia as well. It will be reasonable for the patient to be on Xarelto for his A. fib. However he did have a 2 g hemoglobin drop. If he has overt bleeding or continues to drop his hemoglobin then it would be okay to hold the Xarelto. Patient's creatinine has gone up and he does not appear to be significantly volume overloaded at this time. I agree with gently hydrating the patient since he has acute kidney injury. Patient has hypoalbuminemia, preserved EF. Work-up for liver issues causing his edema can also be considered. Also because patient is tachycardic, short of breath with no evidence of left-sided congestive heart failure, he will be reasonable to rule out PE as well with a VQ scan.
--- NOTE | 2019-07-22 12:50 | PCM.PROGNOTE ---
<Srini Laguerre - Last Filed: 07/22/19 12:50> Patient Problems: Active and Suspected Problems (Last Updated 07/22/19 @ 10:25 by Darline Turcios MD) Elevated troponin (Acute) Chest pain (Acute) Subjective: Patient resting comfortably in chair at bedside. He reports notable improvement in his breathing and in the swelling of his abdomen since yesterday. He continues to have LE edema. He has a cough productive of clear sputum no blood. He has no CP/presure/tightness. His family is bringing his Bipap machine in [place], which he has not used for months due to chronic cough. He took himself off xarelto months ago due to nosebleeds. - Physical Exam General: Alert, Oriented x3, Cooperative HEENT: Atraumatic, PERRLA, EOMI, Normocephalic Neck: Supple, No JVD, Negative Carotid Bruits Lungs: Clear to auscultation, Normal air movement Cardiovascular: Regular rate, No murmurs Abdomen: Bowel Sounds Present, Soft, Non Tender, Obese Extremities: No edema, Capillary Refill Less than 3 Seconds Skin: No rashes, No breakdown Musculoskeletal: No Tenderness to Palpation of Joints or Extremities Neurological: Cranial nerves II-XII grossly intact Psych/Mental Status: Normal Affect, Appropriate, Alert and oriented to time, place, person, mood and affect Vital Signs Temp Pulse Resp BP Pulse Ox 98.0 F 101 H 16 109/76 93 07/22/19 09:25 07/22/19 09:38 07/22/19 09:25 07/22/19 09:38 07/22/19 09:25 Oxygen Flow Rate (L/min) 3 Oxygen Delivery Method Room Air Weight: 274 lb 0.553 oz Body Mass Index (BMI) 36.2 Finger Stick Blood Glucose 86 Intake and Output for Last 24 Hours 07/20/19 07/21/19 07/22/19 23:59 23:59 23:59 Intake Total 219.48 / 219.48 1128.77 / 1128.77 Balance 219.48 / 219.48 1128.77 / 1128.77 Microbiology Past 72 Hours 07/21/19 23:04 Respiratory Panel (PCR) - Final Mucosa - Nose 07/21/19 21:37 Legionella Antigen - Final Interface Orders 07/21/19 21:37 Streptococcus pneumoniae Antigen (M - Final Interface Orders Laboratory Tests Past 24 Hrs 07/21/19 07/21/19 07/21/19 19:55 19:55 19:55 WBC 12.8 H RBC 3.71 L Hgb 11.8 L Hct 36.1 L MCV 97.3 H MCH 31.8 MCHC 32.7 RDW Std Deviation 51.6 H RDW Coeff of Carlos 14.3 Plt Count 200 MPV 10.6 Immature Gran % (Auto) 0.700 Neut % (Auto) 79.5 H Lymph % (Auto) 11.5 L [place] % (Auto) 8.1 Eos % (Auto) 0.1 Baso % (Auto) 0.1 Absolute Neuts (auto) 10.2 H Absolute Lymphs (auto) 1.47 Nucleated RBC % 0 PT INR APTT D-Dimer Quant (PE/DVT) Cancelled Sodium 138 Potassium 4.3 Chloride 99 Carbon Dioxide 30.0 Anion Gap 9 BUN 26 H Creatinine 2.15 H Estim Creat Clear Calc 39.60 Est GFR (MDRD) Af Amer 40 L Est GFR (MDRD) Non-Af 33 L BUN/Creatinine Ratio 12.1 Glucose 98 Lactic Acid Calcium 7.9 L Magnesium Iron TIBC Iron Saturation Ferritin Total Bilirubin Direct Bilirubin AST ALT Alkaline Phosphatase Troponin I 0.058 H B-Natriuretic Peptide Total Protein Albumin Globulin Albumin/Globulin Ratio Triglycerides Cholesterol LDL Cholesterol VLDL Cholesterol HDL Cholesterol Lipase Vitamin B12 RBC Folate Hemolysate RBC Folate Hematocrit Urine Color Urine Clarity Urine pH Ur Specific [place] Urine Protein Urine Glucose (UA) Urine Ketones Urine Occult Blood Urine Nitrite Urine Bilirubin Urine Urobilinogen Ur Leukocyte Esterase Urine RBC Urine WBC Ur Squamous Epith Cells Urine Bacteria Urine Mucus 07/21/19 07/21/19 07/21/19 19:55 19:55 19:55 WBC RBC Hgb Hct MCV MCH MCHC RDW Std Deviation RDW Coeff of [place] Plt Count MPV Immature Gran % (Auto) Neut % (Auto) Lymph % (Auto) [place] % (Auto) Eos % (Auto) Baso % (Auto) Absolute Neuts (auto) Absolute Lymphs (auto) Nucleated RBC % PT INR APTT D-Dimer Quant (PE/DVT) Sodium Potassium Chloride Carbon Dioxide Anion Gap BUN Creatinine Estim Creat Clear Calc Est GFR (MDRD) Af Amer Est GFR (MDRD) Non-Af BUN/Creatinine Ratio Glucose Lactic Acid 2.3 H Calcium Magnesium Iron TIBC Iron Saturation Ferritin Total Bilirubin 2.00 H Direct Bilirubin 0.69 H AST 48 H ALT 25 Alkaline Phosphatase 172 H Troponin I B-Natriuretic Peptide 552.7 H Total Protein 6.8 Albumin 2.4 L Globulin 4.4 H Albumin/Globulin Ratio Triglycerides Cholesterol LDL Cholesterol VLDL Cholesterol HDL Cholesterol Lipase Vitamin B12 RBC Folate Hemolysate RBC Folate Hematocrit Urine Color Urine Clarity Urine pH Ur Specific [place] Urine Protein Urine Glucose (UA) Urine Ketones Urine Occult Blood Urine Nitrite Urine Bilirubin Urine Urobilinogen Ur Leukocyte Esterase Urine RBC Urine WBC Ur Squamous Epith Cells Urine Bacteria Urine Mucus 07/21/19 07/21/19 07/21/19 19:55 19:55 20:10 WBC RBC Hgb Hct MCV MCH MCHC RDW Std Deviation RDW Coeff of [place] Plt Count MPV Immature Gran % (Auto) Neut % (Auto) Lymph % (Auto) [place] % (Auto) Eos % (Auto) Baso % (Auto) Absolute Neuts (auto) Absolute Lymphs (auto) Nucleated RBC % PT INR APTT D-Dimer Quant (PE/DVT) 9.26 H* Sodium Potassium Chloride Carbon Dioxide Anion Gap BUN Creatinine Estim Creat Clear Calc Est GFR (MDRD) Af Amer Est GFR (MDRD) Non-Af BUN/Creatinine Ratio Glucose Lactic Acid Calcium Magnesium 1.4 L Iron TIBC Iron Saturation Ferritin Total Bilirubin Direct Bilirubin AST ALT Alkaline Phosphatase Troponin I B-Natriuretic Peptide Total Protein Albumin Globulin Albumin/Globulin Ratio Triglycerides Cholesterol LDL Cholesterol VLDL Cholesterol HDL Cholesterol Lipase 98 Vitamin B12 RBC Folate Hemolysate RBC Folate Hematocrit Urine Color Urine Clarity Urine pH Ur Specific [place] Urine Protein Urine Glucose (UA) Urine Ketones Urine Occult Blood Urine Nitrite Urine Bilirubin Urine Urobilinogen Ur Leukocyte Esterase Urine RBC Urine WBC Ur Squamous Epith Cells Urine Bacteria Urine Mucus 07/21/19 07/21/19 07/22/19 20:10 21:37 00:40 WBC RBC Hgb Hct MCV MCH MCHC RDW Std Deviation RDW Coeff of [place] Plt Count MPV Immature Gran % (Auto) Neut % (Auto) Lymph % (Auto) [place] % (Auto) Eos % (Auto) Baso % (Auto) Absolute Neuts (auto) Absolute Lymphs (auto) Nucleated RBC % PT INR APTT 29.2 D-Dimer Quant (PE/DVT) Sodium Potassium Chloride Carbon Dioxide Anion Gap BUN Creatinine Estim Creat Clear Calc Est GFR (MDRD) Af Amer Est GFR (MDRD) Non-Af BUN/Creatinine Ratio Glucose Lactic Acid Calcium Magnesium Iron TIBC Iron Saturation Ferritin Total Bilirubin Direct Bilirubin AST ALT Alkaline Phosphatase Troponin I 0.120 H B-Natriuretic Peptide Total Protein Albumin Globulin Albumin/Globulin Ratio Triglycerides Cholesterol LDL Cholesterol VLDL Cholesterol HDL Cholesterol Lipase Vitamin B12 RBC Folate Hemolysate RBC Folate Hematocrit Urine Color Yellow Urine Clarity Clear Urine pH 7.0 Ur Specific [place] 1.005 Urine Protein Negative Urine Glucose (UA) Normal Urine Ketones 5 H Urine Occult Blood Negative Urine Nitrite Negative Urine Bilirubin Negative Urine Urobilinogen 4 H Ur Leukocyte Esterase 25 H Urine RBC 0 SEEN Urine WBC 0-5 SEEN Ur Squamous Epith Cells 0 SEEN Urine Bacteria 0 SEEN Urine Mucus 0 SEEN 07/22/19 07/22/19 07/22/19 00:40 03:10 05:25 WBC 5.3 RBC 3.10 L Hgb 9.9 L Hct 30.2 L MCV 97.4 H MCH 31.9 MCHC 32.8 RDW Std Deviation 51.4 H RDW Coeff of [place] 14.6 Plt Count 110 L MPV 11.1 Immature Gran % (Auto) 0.200 Neut % (Auto) 86.2 H Lymph % (Auto) 11.5 L [place] % (Auto) 2.1 Eos % (Auto) 0.0 Baso % (Auto) 0.0 Absolute Neuts (auto) 4.6 Absolute Lymphs (auto) 0.61 L Nucleated RBC % 0 PT INR APTT D-Dimer Quant (PE/DVT) Sodium Potassium Chloride Carbon Dioxide Anion Gap BUN Creatinine Estim Creat Clear Calc Est GFR (MDRD) Af Amer Est GFR (MDRD) Non-Af BUN/Creatinine Ratio Glucose Lactic Acid 2.0 Calcium Magnesium Iron TIBC Iron Saturation Ferritin Total Bilirubin Direct Bilirubin AST ALT Alkaline Phosphatase Troponin I 0.126 H B-Natriuretic Peptide Total Protein Albumin Globulin Albumin/Globulin Ratio Triglycerides Cholesterol LDL Cholesterol VLDL Cholesterol HDL Cholesterol Lipase Vitamin B12 RBC Folate Hemolysate RBC Folate Hematocrit Urine Color Urine Clarity Urine pH Ur Specific [place] Urine Protein Urine Glucose (UA) Urine Ketones Urine Occult Blood Urine Nitrite Urine Bilirubin Urine Urobilinogen Ur Leukocyte Esterase Urine RBC Urine WBC Ur Squamous Epith Cells Urine Bacteria Urine Mucus 07/22/19 07/22/19 07/22/19 05:25 05:25 05:25 WBC RBC Hgb Hct MCV MCH MCHC RDW Std Deviation RDW Coeff of [place] Plt Count MPV Immature Gran % (Auto) Neut % (Auto) Lymph % (Auto) [place] % (Auto) Eos % (Auto) Baso % (Auto) Absolute Neuts (auto) Absolute Lymphs (auto) Nucleated RBC % PT INR APTT > 250.0 H* D-Dimer Quant (PE/DVT) Sodium 138 Potassium 3.7 Chloride 100 Carbon Dioxide 27.0 Anion Gap 11 BUN 30 H Creatinine 2.12 H Estim Creat Clear Calc 41.35 Est GFR (MDRD) Af Amer 41 L Est GFR (MDRD) Non-Af 34 L BUN/Creatinine Ratio 14.2 Glucose 125 H Lactic Acid Calcium 7.8 L Magnesium Iron TIBC Iron Saturation Ferritin Total Bilirubin 1.80 H Direct Bilirubin AST 55 H ALT 24 Alkaline Phosphatase 143 H Troponin I 0.113 H B-Natriuretic Peptide Total Protein 6.0 L Albumin 2.0 L Globulin 4.0 Albumin/Globulin Ratio 0.5 L Triglycerides 39 Cholesterol 86 LDL Cholesterol 35 VLDL Cholesterol 8 HDL Cholesterol 43 Lipase Vitamin B12 338 RBC Folate Hemolysate RBC Folate Hematocrit Urine Color Urine Clarity Urine pH Ur Specific [place] Urine Protein Urine Glucose (UA) Urine Ketones Urine Occult Blood Urine Nitrite Urine Bilirubin Urine Urobilinogen Ur Leukocyte Esterase Urine RBC Urine WBC Ur Squamous Epith Cells Urine Bacteria Urine Mucus 07/22/19 07/22/19 07/22/19 05:25 05:25 10:57 WBC RBC Hgb Hct MCV MCH MCHC RDW Std Deviation RDW Coeff of [place] Plt Count MPV Immature Gran % (Auto) Neut % (Auto) Lymph % (Auto) [place] % (Auto) Eos % (Auto) Baso % (Auto) Absolute Neuts (auto) Absolute Lymphs (auto) Nucleated RBC % PT 19.2 H INR 1.6 APTT D-Dimer Quant (PE/DVT) Sodium Potassium Chloride Carbon Dioxide Anion Gap BUN Creatinine Estim Creat Clear Calc Est GFR (MDRD) Af Amer Est GFR (MDRD) Non-Af BUN/Creatinine Ratio Glucose Lactic Acid Calcium Magnesium Iron 19 L TIBC 188 L Iron Saturation 10.1 L Ferritin 311 Total Bilirubin Direct Bilirubin AST ALT Alkaline Phosphatase Troponin I B-Natriuretic Peptide Total Protein Albumin Globulin Albumin/Globulin Ratio Triglycerides Cholesterol LDL Cholesterol VLDL Cholesterol HDL Cholesterol Lipase Vitamin B12 RBC Folate Hemolysate Pending RBC Folate Pending Hematocrit Pending Urine Color Urine Clarity Urine pH Ur Specific [place] Urine Protein Urine Glucose (UA) Urine Ketones Urine Occult Blood Urine Nitrite Urine Bilirubin Urine Urobilinogen Ur Leukocyte Esterase Urine RBC Urine WBC Ur Squamous Epith Cells Urine Bacteria Urine Mucus Medical Necessity - Tobacco Use Smoking Status: Never smoker Tobacco Use: Non-smoker Assessment/Plan All Active Problems (Last Updated 07/22/19 @ 10:25 by Darline Turcios MD) Elevated troponin (Acute) Chest pain (Acute) Syphilis (Resolved) Cerebrovascular disease (Ruled-out) 1. Acute severe sepsis 2/2 suspected CAP - Levaquin. urine antigens negative. Blood culture pending. Resp panel negative. Leukocytosis resolved. Questionable pna on CXR. No further fevers. Lactate has resolved. He is also receiving solumedrol and aerosols. I do not see a record of him having COPD, does have restrictive lung disease per Pulmonology. 2. Chest pain - elevated enzymes (indeterminate), Hx CAD - Cardiology following. No plan for cath. D dimer elevated. VQ scan pending. Echo 05/2019, EF 60% 3. ROSS on CKDIII- minimal improvement. Hold losartan 4. Proable acute on chronic diastolic CHF exacerbation - continue lasix, metolazone, he does have increased edema in his LE and abdomen. BNP elevated. EF60 5. Anemia, thrombocytopenia abnormal LFTs - hx HepB and syphillis. He reports he had a bx at [facility] which showed chronic liver dz he is not sure what. Will attempt to obtain results. Possible ascites. Liver US pending. Iron/TIBC/Sat all low, ferritin normal. B12 normal Folate pending. 6. Chronic Afib - plan to resume xarelto. Rate improved. 7. ZAID - start home Bipap tonight. Noncompliant at home. 8. Hx DVT - SVT on Venous duplex. As above VQ pending. On Heparin, plan to change to xarelto. 9. 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 GERD - ppi 11. Htn stable DVT ppx: Heparin DC planning: PTOT This patien was seen by Srini Laguerre PA-C under the supervision of Dr. Turcios. <Darline Turcios - Last Filed: 07/22/19 14:21> - Physical Exam Vital Signs Temp Pulse Resp BP Pulse Ox 98.0 F 101 H 16 109/76 93 07/22/19 09:25 07/22/19 09:38 07/22/19 09:25 07/22/19 09:38 07/22/19 09:25 Oxygen Flow Rate (L/min) 3 Oxygen Delivery Method Room Air Weight: 274 lb 0.553 oz Body Mass Index (BMI) 36.2 Finger Stick Blood Glucose 86 Intake and Output for Last 24 Hours 07/20/19 07/21/19 07/22/19 23:59 23:59 23:59 Intake Total 219.48 / 219.48 1128.77 / 1128.77 Balance 219.48 / 219.48 1128.77 / 1128.77 Microbiology Past 72 Hours 07/21/19 23:04 Respiratory Panel (PCR) - Final Mucosa - Nose 07/21/19 21:37 Legionella Antigen - Final Interface Orders 07/21/19 21:37 Streptococcus pneumoniae Antigen (M - Final Interface Orders Laboratory Tests Past 24 Hrs 07/21/19 07/21/19 07/21/19 19:55 19:55 19:55 WBC 12.8 H RBC 3.71 L Hgb 11.8 L Hct 36.1 L MCV 97.3 H MCH 31.8 MCHC 32.7 RDW Std Deviation 51.6 H RDW Coeff of [place] 14.3 Plt Count 200 MPV 10.6 Immature Gran % (Auto) 0.700 Neut % (Auto) 79.5 H Lymph % (Auto) 11.5 L [place] % (Auto) 8.1 Eos % (Auto) 0.1 Baso % (Auto) 0.1 Absolute Neuts (auto) 10.2 H Absolute Lymphs (auto) 1.47 Nucleated RBC % 0 PT INR APTT D-Dimer Quant (PE/DVT) Cancelled Sodium 138 Potassium 4.3 Chloride 99 Carbon Dioxide 30.0 Anion Gap 9 BUN 26 H Creatinine 2.15 H Estim Creat Clear Calc 39.60 Est GFR (MDRD) Af Amer 40 L Est GFR (MDRD) Non-Af 33 L BUN/Creatinine Ratio 12.1 Glucose 98 Lactic Acid Calcium 7.9 L Magnesium Iron TIBC Iron Saturation Ferritin Total Bilirubin Direct Bilirubin AST ALT Alkaline Phosphatase Troponin I 0.058 H B-Natriuretic Peptide Total Protein Albumin Globulin Albumin/Globulin Ratio Triglycerides Cholesterol LDL Cholesterol VLDL Cholesterol HDL Cholesterol Lipase Vitamin B12 RBC Folate Hemolysate RBC Folate Hematocrit Urine Color Urine Clarity Urine pH Ur Specific [place] Urine Protein Urine Glucose (UA) Urine Ketones Urine Occult Blood Urine Nitrite Urine Bilirubin Urine Urobilinogen Ur Leukocyte Esterase Urine RBC Urine WBC Ur Squamous Epith Cells Urine Bacteria Urine Mucus 07/21/19 07/21/19 07/21/19 19:55 19:55 19:55 WBC RBC Hgb Hct MCV MCH MCHC RDW Std Deviation RDW Coeff of [place] Plt Count MPV Immature Gran % (Auto) Neut % (Auto) Lymph % (Auto) [place] % (Auto) Eos % (Auto) Baso % (Auto) Absolute Neuts (auto) Absolute Lymphs (auto) Nucleated RBC % PT INR APTT D-Dimer Quant (PE/DVT) Sodium Potassium Chloride Carbon Dioxide Anion Gap BUN Creatinine Estim Creat Clear Calc Est GFR (MDRD) Af Amer Est GFR (MDRD) Non-Af BUN/Creatinine Ratio Glucose Lactic Acid 2.3 H Calcium Magnesium Iron TIBC Iron Saturation Ferritin Total Bilirubin 2.00 H Direct Bilirubin 0.69 H AST 48 H ALT 25 Alkaline Phosphatase 172 H Troponin I B-Natriuretic Peptide 552.7 H Total Protein 6.8 Albumin 2.4 L Globulin 4.4 H Albumin/Globulin Ratio Triglycerides Cholesterol LDL Cholesterol VLDL Cholesterol HDL Cholesterol Lipase Vitamin B12 RBC Folate Hemolysate RBC Folate Hematocrit Urine Color Urine Clarity Urine pH Ur Specific [place] Urine Protein Urine Glucose (UA) Urine Ketones Urine Occult Blood Urine Nitrite Urine Bilirubin Urine Urobilinogen Ur Leukocyte Esterase Urine RBC Urine WBC Ur Squamous Epith Cells Urine Bacteria Urine Mucus 07/21/19 07/21/19 07/21/19 19:55 19:55 20:10 WBC RBC Hgb Hct MCV MCH MCHC RDW Std Deviation RDW Coeff of [place] Plt Count MPV Immature Gran % (Auto) Neut % (Auto) Lymph % (Auto) [place] % (Auto) Eos % (Auto) Baso % (Auto) Absolute Neuts (auto) Absolute Lymphs (auto) Nucleated RBC % PT INR APTT D-Dimer Quant (PE/DVT) 9.26 H* Sodium Potassium Chloride Carbon Dioxide Anion Gap BUN Creatinine Estim Creat Clear Calc Est GFR (MDRD) Af Amer Est GFR (MDRD) Non-Af BUN/Creatinine Ratio Glucose Lactic Acid Calcium Magnesium 1.4 L Iron TIBC Iron Saturation Ferritin Total Bilirubin Direct Bilirubin AST ALT Alkaline Phosphatase Troponin I B-Natriuretic Peptide Total Protein Albumin Globulin Albumin/Globulin Ratio Triglycerides Cholesterol LDL Cholesterol VLDL Cholesterol HDL Cholesterol Lipase 98 Vitamin B12 RBC Folate Hemolysate RBC Folate Hematocrit Urine Color Urine Clarity Urine pH Ur Specific [place] Urine Protein Urine Glucose (UA) Urine Ketones Urine Occult Blood Urine Nitrite Urine Bilirubin Urine Urobilinogen Ur Leukocyte Esterase Urine RBC Urine WBC Ur Squamous Epith Cells Urine Bacteria Urine Mucus 07/21/19 07/21/19 07/22/19 20:10 21:37 00:40 WBC RBC Hgb Hct MCV MCH MCHC RDW Std Deviation RDW Coeff of [place] Plt Count MPV Immature Gran % (Auto) Neut % (Auto) Lymph % (Auto) [place] % (Auto) Eos % (Auto) Baso % (Auto) Absolute Neuts (auto) Absolute Lymphs (auto) Nucleated RBC % PT INR APTT 29.2 D-Dimer Quant (PE/DVT) Sodium Potassium Chloride Carbon Dioxide Anion Gap BUN Creatinine Estim Creat Clear Calc Est GFR (MDRD) Af Amer Est GFR (MDRD) Non-Af BUN/Creatinine Ratio Glucose Lactic Acid Calcium Magnesium Iron TIBC Iron Saturation Ferritin Total Bilirubin Direct Bilirubin AST ALT Alkaline Phosphatase Troponin I 0.120 H B-Natriuretic Peptide Total Protein Albumin Globulin Albumin/Globulin Ratio Triglycerides Cholesterol LDL Cholesterol VLDL Cholesterol HDL Cholesterol Lipase Vitamin B12 RBC Folate Hemolysate RBC Folate Hematocrit Urine Color Yellow Urine Clarity Clear Urine pH 7.0 Ur Specific [place] 1.005 Urine Protein Negative Urine Glucose (UA) Normal Urine Ketones 5 H Urine Occult Blood Negative Urine Nitrite Negative Urine Bilirubin Negative Urine Urobilinogen 4 H Ur Leukocyte Esterase 25 H Urine RBC 0 SEEN Urine WBC 0-5 SEEN Ur Squamous Epith Cells 0 SEEN Urine Bacteria 0 SEEN Urine Mucus 0 SEEN 07/22/19 07/22/19 07/22/19 00:40 03:10 05:25 WBC 5.3 RBC 3.10 L Hgb 9.9 L Hct 30.2 L MCV 97.4 H MCH 31.9 MCHC 32.8 RDW Std Deviation 51.4 H RDW Coeff of [place] 14.6 Plt Count 110 L MPV 11.1 Immature Gran % (Auto) 0.200 Neut % (Auto) 86.2 H Lymph % (Auto) 11.5 L [place] % (Auto) 2.1 Eos % (Auto) 0.0 Baso % (Auto) 0.0 Absolute Neuts (auto) 4.6 Absolute Lymphs (auto) 0.61 L Nucleated RBC % 0 PT INR APTT D-Dimer Quant (PE/DVT) Sodium Potassium Chloride Carbon Dioxide Anion Gap BUN Creatinine Estim Creat Clear Calc Est GFR (MDRD) Af Amer Est GFR (MDRD) Non-Af BUN/Creatinine Ratio Glucose Lactic Acid 2.0 Calcium Magnesium Iron TIBC Iron Saturation Ferritin Total Bilirubin Direct Bilirubin AST ALT Alkaline Phosphatase Troponin I 0.126 H B-Natriuretic Peptide Total Protein Albumin Globulin Albumin/Globulin Ratio Triglycerides Cholesterol LDL Cholesterol VLDL Cholesterol HDL Cholesterol Lipase Vitamin B12 RBC Folate Hemolysate RBC Folate Hematocrit Urine Color Urine Clarity Urine pH Ur Specific [place] Urine Protein Urine Glucose (UA) Urine Ketones Urine Occult Blood Urine Nitrite Urine Bilirubin Urine Urobilinogen Ur Leukocyte Esterase Urine RBC Urine WBC Ur Squamous Epith Cells Urine Bacteria Urine Mucus 07/22/19 07/22/19 07/22/19 05:25 05:25 05:25 WBC RBC Hgb Hct MCV MCH MCHC RDW Std Deviation RDW Coeff of [place] Plt Count MPV Immature Gran % (Auto) Neut % (Auto) Lymph % (Auto) [place] % (Auto) Eos % (Auto) Baso % (Auto) Absolute Neuts (auto) Absolute Lymphs (auto) Nucleated RBC % PT INR APTT > 250.0 H* D-Dimer Quant (PE/DVT) Sodium 138 Potassium 3.7 Chloride 100 Carbon Dioxide 27.0 Anion Gap 11 BUN 30 H Creatinine 2.12 H Estim Creat Clear Calc 41.35 Est GFR (MDRD) Af Amer 41 L Est GFR (MDRD) Non-Af 34 L BUN/Creatinine Ratio 14.2 Glucose 125 H Lactic Acid Calcium 7.8 L Magnesium Iron TIBC Iron Saturation Ferritin Total Bilirubin 1.80 H Direct Bilirubin AST 55 H ALT 24 Alkaline Phosphatase 143 H Troponin I 0.113 H B-Natriuretic Peptide Total Protein 6.0 L Albumin 2.0 L Globulin 4.0 Albumin/Globulin Ratio 0.5 L Triglycerides 39 Cholesterol 86 LDL Cholesterol 35 VLDL Cholesterol 8 HDL Cholesterol 43 Lipase Vitamin B12 338 RBC Folate Hemolysate RBC Folate Hematocrit Urine Color Urine Clarity Urine pH Ur Specific [place] Urine Protein Urine Glucose (UA) Urine Ketones Urine Occult Blood Urine Nitrite Urine Bilirubin Urine Urobilinogen Ur Leukocyte Esterase Urine RBC Urine WBC Ur Squamous Epith Cells Urine Bacteria Urine Mucus 07/22/19 07/22/19 07/22/19 05:25 05:25 10:57 WBC RBC Hgb Hct MCV MCH MCHC RDW Std Deviation RDW Coeff of [place] Plt Count MPV Immature Gran % (Auto) Neut % (Auto) Lymph % (Auto) [place] % (Auto) Eos % (Auto) Baso % (Auto) Absolute Neuts (auto) Absolute Lymphs (auto) Nucleated RBC % PT 19.2 H INR 1.6 APTT D-Dimer Quant (PE/DVT) Sodium Potassium Chloride Carbon Dioxide Anion Gap BUN Creatinine Estim Creat Clear Calc Est GFR (MDRD) Af Amer Est GFR (MDRD) Non-Af BUN/Creatinine Ratio Glucose Lactic Acid Calcium Magnesium Iron 19 L TIBC 188 L Iron Saturation 10.1 L Ferritin 311 Total Bilirubin Direct Bilirubin AST ALT Alkaline Phosphatase Troponin I B-Natriuretic Peptide Total Protein Albumin Globulin Albumin/Globulin Ratio Triglycerides Cholesterol LDL Cholesterol VLDL Cholesterol HDL Cholesterol Lipase Vitamin B12 RBC Folate Hemolysate Pending RBC Folate Pending Hematocrit Pending Urine Color Urine Clarity Urine pH Ur Specific [place] Urine Protein Urine Glucose (UA) Urine Ketones Urine Occult Blood Urine Nitrite Urine Bilirubin Urine Urobilinogen Ur Leukocyte Esterase Urine RBC Urine WBC Ur Squamous Epith Cells Urine Bacteria Urine Mucus 07/22/19 13:05 WBC RBC Hgb Hct MCV MCH MCHC RDW Std Deviation RDW Coeff of [place] Plt Count MPV Immature Gran % (Auto) Neut % (Auto) Lymph % (Auto) [place] % (Auto) Eos % (Auto) Baso % (Auto) Absolute Neuts (auto) Absolute Lymphs (auto) Nucleated RBC % PT INR APTT 78.9 H D-Dimer Quant (PE/DVT) Sodium Potassium Chloride Carbon Dioxide Anion Gap BUN Creatinine Estim Creat Clear Calc Est GFR (MDRD) Af Amer Est GFR (MDRD) Non-Af BUN/Creatinine Ratio Glucose Lactic Acid Calcium Magnesium Iron TIBC Iron Saturation Ferritin Total Bilirubin Direct Bilirubin AST ALT Alkaline Phosphatase Troponin I B-Natriuretic Peptide Total Protein Albumin Globulin Albumin/Globulin Ratio Triglycerides Cholesterol LDL Cholesterol VLDL Cholesterol HDL Cholesterol Lipase Vitamin B12 RBC Folate Hemolysate RBC Folate Hematocrit Urine Color Urine Clarity Urine pH Ur Specific [place] Urine Protein Urine Glucose (UA) Urine Ketones Urine Occult Blood Urine Nitrite Urine Bilirubin Urine Urobilinogen Ur Leukocyte Esterase Urine RBC Urine WBC Ur Squamous Epith Cells Urine Bacteria Urine Mucus Assessment/Plan Hospitalist note: I am seeing this patient in conjunction with Srini Laguerre. I independently seen and examined the patient. Progress note above, laboratory data and imaging studies reviewed and I concur with the above work-up and treatment plan. Patient reported improvement, still having cough with clear sputum. Today, denies any chest pain or chest tightness. He denies fever or chills. Had a spikes of low-grade fever last night but afebrile this morning. Heart rate has been around 100, blood pressure stable, patient was off oxygen when I saw him and pulse ox was 93% on room air. - Physical Exam General: Alert, Oriented x3, Cooperative, No apparent distress. HEENT: Atraumatic, PERRLA, EOMI. Neck: Supple, No JVD, Negative Carotid Bruits, Trachea Midline, Thyroid Normal. Lungs: Diminished breath sounds bilateral, otherwise clear, No rhonchi, No wheeze, No rales. Cardiovascular: Regular rate, Regular Rhythm, Normal S1, Normal S2, PMI Normal. Abdomen: Bowel Sounds Present, Soft, Non Tender, Non-Distended, No Hepato-splenomegaly. Extremities: No clubbing, No cyanosis, trace edema Skin: No rashes, No breakdown Neurological: Cranial nerves are intact, normal power and tone, neuro grossly intact Assessment and plan: #1 suspected community-acquired pneumonia/severe sepsis: On IV Levaquin. No leukocytosis, no fever this morning. Pneumococcal and Legionella antigen were negative. Respiratory panel for viruses were negative. Blood cultures pending. VQ scan was negative for PE. Plan to continue same treatment. #2 chest pain with indeterminate troponin: EKG with normal sinus rhythm and PVCs, no acute ST elevation. Troponin remained flat. Today, patient denies any chest pain. He is on IV heparin drip, aspirin, metoprolol. Cardiology consulted. #3 acute kidney injury on top of stage III chronic kidney disease: Baseline creatinine has been around 1.3 to 1.8 mg/dL. Admission creatinine is 2.1, remained almost the same day. Plan to repeat BMP tomorrow morning. #4 questionable acute on chronic diastolic CHF: Chest x-ray reviewed as above. Patient is on p.o. Lasix, metolazone as well as metoprolol. #5 other chronic medical problems: Stable, continue current medications as above. This note was generated with [employer] software. It may contain incorrect words, spelling, and punctuation that were not noted in checking the note before signing. Code Visit Inpatient E&M: 23870 Subs Hosp L2
[2019-07-22] MEDS: 0.9% Saline Lock 10 ML Syringe IV (13:29)
[2019-07-22 13:37] LABS: Partial Thromboplast Time 78.9 Seconds (24.1-36.2)
--- NOTE | 2019-07-22 14:24 | CASEMGMT ---
YANY RAYMUNDO assessment: Face to Face with patient for initial transition planning/care coordination assessment. YANY RAYMUNDO introduced self and role at [facility], pt voices understanding and consents to assessment at this time. Pt is sitting up in chair in no distress at this time. Pt is A/Ox4 at this time and answers all questions appropriately at this time. Care providers, pharmacy, and demographics verified at this time. PCP: Taiwo Specialists: Jadon, pulm; Marques, surgeon; Jonathan, cardio; [facility] Preferred [facility]acy: [facility] Insurance: [employer] Prescription Benefit: [place] Living Will/HPOA: Pt states does not have LW/HPOA but is interested in AD info at this time. Shayla SW aware, voices understanding. LNOK: Stephie Brandon, Living Arrangements: Pt states lives with in 1 story home with ramp entrance and states no concerns at home at this time. Pt states is normally independent with ADL's. Transportation: Pt states drives self and states no transportation concerns at this time. DME/HHC: Pt states has the following DME: walker, w/c, grab bars, walk-in hcp shower, hearing aides, and bipap thru [facility]. Pt states no need for any further DME at this time. Pt states no hx of HHC or SNF. Pt states no concerns with going home at time of discharge. Pt states is currently unemployed. Pt states does not smoke or drink ETOH. Pt states no further concerns/needs at this time. CM to follow PT/OT notes and for any further discharge planning/needs. Advised pt to ask for CM if any further questions/concerns/needs arise, voices understanding. Pt Goal: Home Plan: [place] YANY RAYMUNDO
[2019-07-22] MEDS: HEPARIN/D5w 25,000 UNITS 25,000 UNITS/250 ML IV.SOLN. 14 UNITS IV (18:52)
[2019-07-22 19:59] LABS: Partial Thromboplast Time 69.4 Seconds (24.1-36.2)
[2019-07-22] MEDS: amLODIPine 5 MG Tablet PO (21:08)
[2019-07-22] MEDS: Pravastatin 20 MG Tablet PO (21:09)
[2019-07-23] VITALS (15 sets, daily range): BP systolic 117–137; BP diastolic 67–83; PULSE 74–105; RESP 18–20; TEMP 36.4–36.6; O2SAT 92–96
--- NOTE | 2019-07-23 00:14 | CPS ---
Pt. was setup on his home BiPAP unit. Water chamber filled and mask placed on with comfort. Call light within reach and pt. understands to hit call light if he has any problems occur with machine. RN aware that machine was placed on pt. Will continue to monitor.
--- NOTE | 2019-07-23 01:50 | NURSING ---
Pt. took off home bipap at this time. Stated he could not tolerate it any more, the pressure is too high, I'll figure it out when I get home. Pt. states he is feeling better. This nurse placed pt. on oxygen 2L nasal cannula at this time. Verbally notified RT, Eloy, that pt. took off bipap. and is now on 2L O2. Eloy, RT, Verbalized understanding.
[2019-07-23 06:17] LABS: Absolute Lymphocyte Count 1.51 X10^3/uL (0.83-4.51); Absolute Neutrophil Count 11.1 X10^3/uL (2.0-7.7); Basophil# 0.01 X10^3/uL; Basophil% 0.1 % (0-1); Eosinophil# 0.01 X10^3/uL; Eosinophils% 0.1 % (0-5); Hematocrit 32.2 % (40-54); Hemoglobin 10.2 g/dL (13.0-16.5); Lymphocyte # 1.51 X10^3/ul (4.0); Lymphocyte % 11.3 % (19-41); Mean Corp Hgb Conc 31.7 g/dL (32-36); Mean Corpuscular Hgb 31.4 pg (27.0-32.0); Mean Corpuscular Volume 99.1 fL (80-94); Monocyte# 0.71 X10^3/uL; Monocyte% 5.3 % (0-10); NRBC Flagged by Analyzer 0 % (0-5); Neutrophil # 11.08 X10^3/uL (2.7-7.7); Neutrophil % 82.7 % (47-70); POSITIVE MORPHOLOGY YES; Platelet Count 152 K/mm3 (150-450); RBC Distribution Width CV 14.6 % (11.6-14.6); RBC Distribution Width SD 53.2 fl (35.1-43.9); Red Blood Count 3.25 M/mm3 (4.6-6.2); White Blood Count 13.4 K/mm3 (4.4-11.0)
[2019-07-23 06:28] LABS: Partial Thromboplast Time 69.1 Seconds (24.1-36.2)
[2019-07-23 06:29] LABS: Differential Indicated SCAN CRITERIA MET
[2019-07-23 06:42] LABS: Anion Gap 8 (5-15); BUN 47 mg/dL (7-18); BUN/Creat Ratio 17.4 RATIO (10-20); Chloride 100 mmol/L (98-107); EST Glomerular Filtration Rate 26 mL/min (>60); Est Glom Filt Rate - Afr Amer 31 mL/min (>60); Estimated Creatinine Clearance 32.47 ml/min; Glucose 98 mg/dL (74-106); Magnesium 2.1 mg/dL (1.6-2.6); Potassium 3.8 mmol/L (3.5-5.1); Sodium Level 136 mmol/L (136-145)
[2019-07-23 06:47] LABS: Reactive Lymphocyte RARE
[2019-07-23] MEDS: Ipratropium/Albuterol Sulfate 3 ML AMPUL.NEB INHALATION ×3 (07:03→19:00)
[2019-07-23] MEDS: Aspirin E.C. 81 MG Tablet PO (08:00)
[2019-07-23] MEDS: Metoprolol Tartrate 100 MG Tablet PO ×2 (09:02→21:22)
[2019-07-23] MEDS: Furosemide 80 MG Tablet PO (09:02)
[2019-07-23] MEDS: Fluticasone 0.05% 1 SPRAY NASAL.SRY 2 SPRAY NASAL (09:02)
[2019-07-23] MEDS: Montelukast 10 MG Tablet PO (09:03)
[2019-07-23] MEDS: Amiodarone 200 MG Tablet 100 MG PO (09:03)
[2019-07-23] MEDS: Pantoprazole Sodium 40 MG Tablet PO (09:03)
[2019-07-23] MEDS: Loratadine 10 MG Tablet PO (09:03)
[2019-07-23] MEDS: Metolazone 2.5 MG Tablet 5 MG PO (09:06)
[2019-07-23] MEDS: Acetaminophen 325 MG Tablet 650 MG PO ×2 (10:12→20:04)
[2019-07-23] MEDS: Rivaroxaban 15 MG Tablet PO (10:31)
--- NOTE | 2019-07-23 13:00 | PCM.PROGNOTE ---
<Srini Laguerre - Last Filed: 07/23/19 13:00> Patient Problems: Active and Suspected Problems (Last Updated 07/22/19 @ 10:25 by Darline Turcios MD) Elevated troponin (Acute) Chest pain (Acute) Subjective: Pt with ongoing SOB, LE edema, dry cough, abdominal distention. No CP. No fevers/chills. Some urine output, but it has not been accurately tracked so far. Some left groin pain from LE duplex probe, no erythema or swelling. - Physical Exam General: Alert, Oriented x3, Cooperative HEENT: Atraumatic, PERRLA, EOMI, Normocephalic Neck: Supple, No JVD, Negative Carotid Bruits Lungs: Diminished Cardiovascular: No murmurs, Irregular Rate Abdomen: Bowel Sounds Present, Soft, Non Tender Extremities: No edema, Capillary Refill Less than 3 Seconds Skin: No rashes, No breakdown Musculoskeletal: No Tenderness to Palpation of Joints or Extremities Neurological: Cranial nerves II-XII grossly intact Psych/Mental Status: Normal Affect, Appropriate Vital Signs Temp Pulse Resp BP Pulse Ox 97.8 F 85 20 H 127/71 H 95 07/23/19 09:01 07/23/19 11:22 07/23/19 11:22 07/23/19 09:02 07/23/19 09:01 Oxygen Flow Rate (L/min) 1 Oxygen Delivery Method Nasal Cannula Weight: 280 lb 10.375 oz Body Mass Index (BMI) 36.2 Finger Stick Blood Glucose 86 Intake and Output for Last 24 Hours 07/21/19 07/22/19 07/23/19 23:59 23:59 23:59 Intake Total 219.48 / 219.48 2187.39 / 2187.39 728.70 / 728.70 Output Total 500 / 500 Balance 219.48 / 219.48 2187.39 / 2187.39 228.70 / 228.70 Microbiology Past 72 Hours 07/21/19 23:04 Respiratory Panel (PCR) - Final Mucosa - Nose 07/21/19 21:37 Legionella Antigen - Final Interface Orders 07/21/19 21:37 Streptococcus pneumoniae Antigen (M - Final Interface Orders Laboratory Tests Past 24 Hrs 07/22/19 07/22/19 07/23/19 13:05 19:40 06:00 WBC 13.4 H RBC 3.25 L Hgb 10.2 L Hct 32.2 L MCV 99.1 H MCH 31.4 MCHC 31.7 L RDW Std Deviation 53.2 H RDW Coeff of Carlos 14.6 Plt Count 152 MPV 11.0 Immature Gran % (Auto) 0.500 Neut % (Auto) 82.7 H Lymph % (Auto) 11.3 L [place] % (Auto) 5.3 Eos % (Auto) 0.1 Baso % (Auto) 0.1 Absolute Neuts (auto) 11.1 H Absolute Lymphs (auto) 1.51 Nucleated RBC % 0 Reactive Lymphocytes RARE APTT 78.9 H 69.4 H Sodium Potassium Chloride Carbon Dioxide Anion Gap BUN Creatinine Estim Creat Clear Calc Est GFR (MDRD) Af Amer Est GFR (MDRD) Non-Af BUN/Creatinine Ratio Glucose Calcium Magnesium 07/23/19 07/23/19 06:00 06:00 WBC RBC Hgb Hct MCV MCH MCHC RDW Std Deviation RDW Coeff of Carlos Plt Count MPV Immature Gran % (Auto) Neut % (Auto) Lymph % (Auto) [place] % (Auto) Eos % (Auto) Baso % (Auto) Absolute Neuts (auto) Absolute Lymphs (auto) Nucleated RBC % Reactive Lymphocytes APTT 69.1 H Sodium 136 Potassium 3.8 Chloride 100 Carbon Dioxide 28.0 Anion Gap 8 BUN 47 H Creatinine 2.70 H Estim Creat Clear Calc 32.47 Est GFR (MDRD) Af Amer 31 L Est GFR (MDRD) Non-Af 26 L BUN/Creatinine Ratio 17.4 Glucose 98 Calcium 8.0 L Magnesium 2.1 Medical Necessity - Tobacco Use Smoking Status: Never smoker Tobacco Use: Non-smoker Assessment/Plan All Active Problems (Last Updated 07/22/19 @ 10:25 by Darline Turcios MD) Elevated troponin (Acute) Chest pain (Acute) Syphilis (Resolved) Cerebrovascular disease (Ruled-out) 1. Acute severe sepsis 2/2 suspected CAP - Levaquin. urine antigens negative. Blood culture pending. Resp panel negative. Leukocytosis resolved. Questionable pna on CXR. No further fevers since 07/21/2019. Lactate has resolved. Continue aerosols. Solumedrol dc'd yesterday. 2. Chest pain - elevated enzymes (indeterminate), Hx CAD - Cardiology following. No plan for cath. D dimer elevated. VQ scan negative. Echo 05/2019, EF 60% 3. ROSS on CKDIII- worse. Hold losartan. Lasix increased. Trend. 4. Probable acute on chronic diastolic CHF exacerbation - lasix to IV, stop metolazone. Trend renal function. 5. Cirrhosis - see abd US. Significant Ascites. Hx hepatitis B and syphillis. Would not be a candidate for paracentesis at this time with ongoing anticoagulation. He would benefit from GI referral at [place]. Request for record of [facility] liver bx sent. 6. Chronic Afib - heparin stopped, resume xarelto tonight. 7. ZAID - Bipap tonight, pt brought machine. Noncompliant at home. 8. Hx DVT - SVT on Venous duplex. As above VQ negative. Heparin to xarelto. 9. 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 GERD - ppi 11. Htn stable DVT ppx: Heparin [place] planning: PTOT This patien was seen by Srini Laguerre PA-C under the supervision of Dr. Turcios. <Darline Turcios E - Last Filed: 07/23/19 13:17> - Physical Exam Vital Signs Temp Pulse Resp BP Pulse Ox 97.8 F 85 20 H 127/71 H 95 07/23/19 09:01 07/23/19 11:22 07/23/19 11:22 07/23/19 09:02 07/23/19 09:01 Oxygen Flow Rate (L/min) 1 Oxygen Delivery Method Nasal Cannula Weight: 280 lb 10.375 oz Body Mass Index (BMI) 36.2 Finger Stick Blood Glucose 86 Intake and Output for Last 24 Hours 07/21/19 07/22/19 07/23/19 23:59 23:59 23:59 Intake Total 219.48 / 219.48 2187.39 / 2187.39 728.70 / 728.70 Output Total 500 / 500 Balance 219.48 / 219.48 2187.39 / 2187.39 228.70 / 228.70 Microbiology Past 72 Hours 07/21/19 23:04 Respiratory Panel (PCR) - Final Mucosa - Nose 07/21/19 21:37 Legionella Antigen - Final Interface Orders 07/21/19 21:37 Streptococcus pneumoniae Antigen (M - Final Interface Orders Laboratory Tests Past 24 Hrs 1007/22/19 07/23/19 13:05 19:40 06:00 WBC 13.4 H RBC 3.25 L Hgb 10.2 L Hct 32.2 L MCV 99.1 H MCH 31.4 MCHC 31.7 L RDW Std Deviation 53.2 H RDW Coeff of Carlos 14.6 Plt Count 152 MPV 11.0 Immature Gran % (Auto) 0.500 Neut % (Auto) 82.7 H Lymph % (Auto) 11.3 L [place] % (Auto) 5.3 Eos % (Auto) 0.1 Baso % (Auto) 0.1 Absolute Neuts (auto) 11.1 H Absolute Lymphs (auto) 1.51 Nucleated RBC % 0 Reactive Lymphocytes RARE APTT 78.9 H 69.4 H Sodium Potassium Chloride Carbon Dioxide Anion Gap BUN Creatinine Estim Creat Clear Calc Est GFR (MDRD) Af Amer Est GFR (MDRD) Non-Af BUN/Creatinine Ratio Glucose Calcium Magnesium 07/23/19 07/23/19 06:00 06:00 WBC RBC Hgb Hct MCV MCH MCHC RDW Std Deviation RDW Coeff of Carlos Plt Count MPV Immature Gran % (Auto) Neut % (Auto) Lymph % (Auto) [place] % (Auto) Eos % (Auto) Baso % (Auto) Absolute Neuts (auto) Absolute Lymphs (auto) Nucleated RBC % Reactive Lymphocytes APTT 69.1 H Sodium 136 Potassium 3.8 Chloride 100 Carbon Dioxide 28.0 Anion Gap 8 BUN 47 H Creatinine 2.70 H Estim Creat Clear Calc 32.47 Est GFR (MDRD) Af Amer 31 L Est GFR (MDRD) Non-Af 26 L BUN/Creatinine Ratio 17.4 Glucose 98 Calcium 8.0 L Magnesium 2.1 Assessment/Plan Hospitalist note: I am seeing this patient in conjunction with Srini Laguerre. I independently seen and examined the patient. Progress note above, laboratory data and imaging studies reviewed and I concur with the above work-up and treatment plan. Patient mentioned that his breathing is getting better compared to yesterday, still complaining of cough and leg edema. He denies fever or chills. He is afebrile, blood pressure and heart rate are stable, pulse ox is 95% on 1 L. - Physical Exam General: Alert, Oriented x3, Cooperative, No apparent distress. HEENT: Atraumatic, PERRLA, EOMI. Neck: Supple, No JVD, Negative Carotid Bruits, Trachea Midline, Thyroid Normal. Lungs: Diminished breath sounds bilateral, otherwise clear, No rhonchi, No wheeze, No rales. Cardiovascular: irregular Rhythm, Normal S1, Normal S2, PMI Normal. Abdomen: Bowel Sounds Present, Soft, Non Tender, Distended, No Hepato-splenomegaly. Extremities: No clubbing, No cyanosis, trace edema Skin: No rashes, No breakdown Neurological: Cranial nerves are intact, normal power and tone, neuro grossly intact Assessment and plan: #1 suspected community-acquired pneumonia/severe sepsis: On IV Levaquin. No leukocytosis, afebrile overnight. Pneumococcal and Legionella antigen were negative. Respiratory panel for viruses were negative. Blood cultures pending. VQ scan was negative for PE. Plan to continue same treatment. #2 chest pain with indeterminate troponin: EKG with normal sinus rhythm and PVCs, no acute ST elevation. Troponin remained flat. He is on aspirin, metoprolol. Cardiology consulted, recommended no need for further cardiac work-up or interventions at this time. #3 acute kidney injury on top of stage III chronic kidney disease: Baseline creatinine has been around 1.3 to 1.8 mg/dL. Admission creatinine is 2.1, worsening today to 2.70 and it is likely because of diuresis. Patient is on Lasix and Zaroxolyn. Plan to switch to IV Lasix, stop Zaroxolyn, repeat BMP tomorrow morning. #4 questionable acute on chronic diastolic CHF: Chest x-ray reviewed as above. Patient is on p.o. Lasix, metolazone as well as metoprolol. Plan to DC metolazone, start IV Lasix, continue metoprolol. #5 liver cirrhosis: This is chronic. Ultrasound revealed cirrhotic liver with ascites. 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 #6 other chronic medical problems: Stable, continue current medications as above. This note was generated with [employer] dictation software. It may contain incorrect words, spelling, and punctuation that were not noted in checking the note before signing. Code Visit Inpatient E&M: 63611 Subs Hosp L2
[2019-07-23 14:08] LABS: Folate, RBC (Hct) Test 32.2 % (37.5-51.0)
--- NOTE | 2019-07-23 15:44 | PCM.PN.CARD ---
Subjectve: Patient is feeling better than yesterday. His creatinine however has gone up. His VQ scan is negative. His abdominal ultrasound suggests cirrhosis. Objective: Vital Signs Temp Pulse Resp BP Pulse Ox 97.8 F 78 18 137/83 H 92 07/23/19 15:00 07/23/19 15:00 07/23/19 15:00 07/23/19 15:00 07/23/19 15:00 Oxygen Flow Rate (L/min) 1 Oxygen Delivery Method Room Air Weight: 280 lb 10.375 oz Body Mass Index (BMI) 36.2 Finger Stick Blood Glucose 86 Intake and Output for Last 24 Hours 07/21/19 07/22/19 07/23/19 23:59 23:59 23:59 Intake Total 219.48 / 219.48 2187.39 / 2187.39 728.70 / 728.70 Output Total 500 / 500 Balance 219.48 / 219.48 2187.39 / 2187.39 228.70 / 228.70 General: Awake, Alert, Oriented x 3 HEENT: Atraumatic Oral: Moist Mucosa Neck: Supple Cardiovascular: Regular Rhythm Abdomen: Soft Extremities: No edema Skin: No Rashes Psych/Mental Status: Appropriate 07/22/19 19:40: APTT 69.4 H 07/23/19 06:00: WBC 13.4 H, RBC 3.25 L, Hgb 10.2 L, Hct 32.2 L, MCV 99.1 H, MCH 31.4, MCHC 31.7 L, Plt Count 152, MPV 11.0, Immature Gran % (Auto) 0.500, Neut % (Auto) 82.7 H, Lymph % (Auto) 11.3 L, [place] % (Auto) 5.3, Eos % (Auto) 0.1, Baso % (Auto) 0.1, Absolute Neuts (auto) 11.1 H, Nucleated RBC % 0 07/23/19 06:00: Sodium 136, Potassium 3.8, Chloride 100, Carbon Dioxide 28.0, Anion Gap 8, BUN 47 H, Creatinine 2.70 H, Est GFR (MDRD) Af Amer 31 L, Est GFR (MDRD) Non-Af 26 L, BUN/Creatinine Ratio 17.4, Glucose 98, Calcium 8.0 L, Magnesium 2.1 10/18/19 06:00: APTT 69.1 H Rhythm: EKG: ECHO: Stress Test: Cardiac Cath: PCI: CT Surgery: Holter monitor: EPS: PPM: CXR: Chest CT Scan: Medical Necessity - Tobacco Use Smoking Status: Never smoker Tobacco Use: Non-smoker Assessment/Plan Since seen, evaluated and discussed with ROBERTO Wharton. Please see Gosia's note for full details. I agree with her note. In brief, patient's chest pain sounds pleuritic by history. No cardiac cath is recommended at this time. He has had a cardiac cath in the past that did not show significant CAD and had a stress test last year which was negative for ischemia as well. It will be reasonable for the patient to be on Xarelto for his A. fib. However he did have a 2 g hemoglobin drop. If he has overt bleeding or continues to drop his hemoglobin then it would be okay to hold the Xarelto. Patient's creatinine has gone up and he does not appear to be significantly volume overloaded at this time. I agree with gently hydrating the patient since he has acute kidney injury. Patient has hypoalbuminemia, preserved EF. Work-up for liver issues causing his edema can also be considered. Also because patient is tachycardic, short of breath with no evidence of left-sided congestive heart failure, he will be reasonable to rule out PE as well with a VQ scan. 1. Indeterminant troponin: Patient is noted to have an indeterminate troponin. His chest pain is atypical. Patient had a stress test last year that was negative for ischemia, heart catheterization from 10 years ago demonstrated minimal to mild disease. Feel that this is likely not cardiac related for the elevated troponin. Do not feel that any additional cardiac tests need to be done at this time. Also hesitant to pursue a heart catheterization for his determinant troponin and atypical chest pain due to his renal insufficiency. 2. Shortness of breath: Improved. VQ scan is negative for PE. 3. Paroxysmal atrial fibrillation: Patient is in sinus rhythm currently. He is not on any rate limiting medication although he is on amiodarone at 100 mg daily. Would continue with this medication. He has stopped his Xarelto a few months ago. Ideally patient should be restarted on this. However it is noted that he is slightly anemic and his hemoglobin has dropped from yesterday to today. If we were to resume this would recommend close follow-up on his blood counts. If he continues to have lower counts or has bleeding issues would discontinue this. 4. Lower extremity edema: Patient's lower extremity edema could be related to his diastolic dysfunction and noncompliance of his diuretics. It is noted that he does have hypo-albumin anemia and slightly elevated liver function tests, this could also be contributing to his lower extremity edema. Ultrasound of the abdomen does show cirrhosis. 6. Chronic kidney disease: It is noted that his renal function is trending upwards. Would recommend some IV fluids however would also continue his diuretics. With his renal issues. Would continue close follow-up with this. 7: Hypertension: Will continue home medications. Patient is stable from a cardiac standpoint. We will sign off at this time. If we can be of any further assistance please let us know.
--- NOTE | 2019-07-23 15:50 | CASEMGMT ---
YANY RAYMUNDO NOTE: Per PT/OT, pt inquiring about getting a hospital bed and lift chair. YANY RAYMUNDO to room to talk with pt. Pt on phone w/ and asked for YANY RAYMUNDO to speak with his . YANY RAYMUNDO spoke w/pt's , Stephie, over the phone. Informed Stephie that if lift chair is approved thru insurance that typically only the motorized part is covered under insurance and instructed her to talk to pt's PCP re: starting the process for this. Also discussed hospital bed. She was made aware this would be something that would need to be approved through insurance and would require medical necessity and diagnoses that would be accepted by insurance. Advised to discuss this with PCP as well. also inquiring about HHC, stating she does not feel pt is well enough/strong enough to be able to get out to OP therapy at this time. Read off list of local HHC agencies to and pt. They have no preference of HHC agency. Call placed to [facility] and spoke with Apoorva. They are in network with [facility] Neftaly was made aware anticipate discharge Friday, but possibly could be discharged Friday, and pt will need PT/OT and prison. Referral packet faxed to [facility] at this time. Awaiting acceptance. [facility]: Phone: . Call placed back to pt's , Stephie, and she was given information for [facility] and made aware we are awaiting acceptance at this time. She was also given [employer]'s contact information to call on Friday in the event pt would be discharged over the weekend for follow-up for HHC/assistance. She voiced appreciation. Pt made aware as well. Zen PRO RN, CM
[2019-07-23 15:56] LABS: Folates, RBC Test 972 ng/mL (>498)
[2019-07-23] MEDS: Furosemide 100 MG/10 ML Vial 80 MG IV (17:34)
[2019-07-23] MEDS: 0.9% Saline Lock 10 ML Syringe IV ×2 (17:35→21:23)
[2019-07-23] MEDS: amLODIPine 5 MG Tablet PO (21:22)
[2019-07-23] MEDS: Pravastatin 20 MG Tablet PO (21:22)
[2019-07-23] MEDS: levoFLOXacin IV 750 MG/150 ML BAG 100 MG IV (21:22)
[2019-07-24] VITALS (12 sets, daily range): BP systolic 99–139; BP diastolic 60–80; PULSE 70–89; RESP 16–22; TEMP 36.5–36.8; O2SAT 90–95
[2019-07-24] MEDS: Ipratropium/Albuterol Sulfate 3 ML AMPUL.NEB INHALATION ×4 (06:40→19:27)
[2019-07-24 06:46] LABS: Partial Thromboplast Time 32.2 Seconds (24.1-36.2)
[2019-07-24 07:11] LABS: ALB/GLOB Ratio 0.5 RATIO (0.9-2.4); AST(SGOT) 41 U/L (15-37); Alanine Aminotransfer ALT/SGPT 23 U/L (16-61); Alkaline Phosphatase 135 U/L (45-117); Anion Gap 8 (5-15); BUN 65 mg/dL (7-18); Calcium,Total 7.7 mg/dL (8.5-10.1); Chloride 99 mmol/L (98-107); Creatinine, Serum 2.83 mg/dL (0.70-1.30); EST Glomerular Filtration Rate 24 mL/min (>60); Est Glom Filt Rate - Afr Amer 29 mL/min (>60); Estimated Creatinine Clearance 30.98 ml/min; Globulin 3.7 g/dL (2.2-4.2); Glucose 90 mg/dL (74-106); Potassium 3.3 mmol/L (3.5-5.1); Protein, Total 5.7 g/dL (6.4-8.2); Sodium Level 138 mmol/L (136-145)
--- NOTE | 2019-07-24 08:44 | PCM.PROGNOTE ---
Patient Problems: Active and Suspected Problems (Last Updated 07/22/19 @ 10:25 by Darline Turcios MD) Elevated troponin (Acute) Chest pain (Acute) Subjective: Chief complaint: Follow-up after admission for severe sepsis secondary to suspected community acquired pneumonia, chest pain with indeterminate troponin, acute kidney injury double stage III chronic kidney disease, probable acute and progressive CHF and ascites secondary to liver cirrhosis. Patient seen and examined. No acute events overnight. He reported that his breathing is getting better every day. Still having mild cough, improved. His bili is more softer. Denies fever or chills. Denies any more chest pain. He has been afebrile for more than 48 hours, blood pressure and heart rate are stable, pulse ox is 92% on room air. - Physical Exam General: Alert, Oriented x3, Cooperative, No apparent distress HEENT: Atraumatic, PERRLA, EOMI, Normocephalic Oral: Moist Mucosa, No Gingival or Mucosal Lesions/ Ulcerations Neck: Supple, No JVD, Negative Carotid Bruits, Trachea Midline, Thyroid Normal Size and Texture Lungs: Clear to auscultation, No rhonchi, No wheeze, No rales, Diminished Cardiovascular: Regular rate, Regular Rhythm, Normal S1, Normal S2, PMI Normal Abdomen: Bowel Sounds Present, Soft, Non Tender, Non-Distended, No Hepato-splenomegaly, Obese Extremities: No clubbing, No cyanosis, Edema - + Edema. Skin: No rashes, No breakdown Lymphatic: No Cervical, Supraclavicular, or Inguinal Adenopathy Neurological: Cranial nerves II-XII grossly intact, Neuro grossly intact Psych/Mental Status: Normal Affect, Appropriate, Alert and oriented to time, place, person, mood and affect Vital Signs Temp Pulse Resp BP Pulse Ox 98.3 F 72 18 99/60 90 07/24/19 03:00 07/24/19 06:40 07/24/19 06:40 07/24/19 03:00 07/24/19 06:40 Oxygen Flow Rate (L/min) 1 Oxygen Delivery Method Room Air Weight: 276 lb 7.355 oz Body Mass Index (BMI) 36.2 Finger Stick Blood Glucose 86 Intake and Output for Last 24 Hours 07/22/19 07/23/19 07/24/19 23:59 23:59 23:59 Intake Total 2187.39 / 2187.39 1518.70 / 1518.70 100 / 100 Output Total 1625 / 1625 650 / 650 Balance 2187.39 / 2187.39 -106.30 / -106.30 -550 / -550 Microbiology Past 72 Hours 07/21/19 23:04 Respiratory Panel (PCR) - Final Mucosa - Nose 07/21/19 21:37 Legionella Antigen - Final Interface Orders 07/21/19 21:37 Streptococcus pneumoniae Antigen (M - Final Interface Orders Laboratory Tests Past 24 Hrs 07/22/19 07/24/19 07/24/19 10:57 05:30 05:30 APTT 32.2 Sodium 138 Potassium 3.3 L Chloride 99 Carbon Dioxide 31.0 Anion Gap 8 BUN 65 H Creatinine 2.83 H Estim Creat Clear Calc 30.98 Est GFR (MDRD) Af Amer 29 L Est GFR (MDRD) Non-Af 24 L BUN/Creatinine Ratio 23.0 H Glucose 90 Calcium 7.7 L Total Bilirubin 0.70 AST 41 H ALT 23 Alkaline Phosphatase 135 H Total Protein 5.7 L Albumin 2.0 L Globulin 3.7 Albumin/Globulin Ratio 0.5 L RBC Folate Hemolysate 313.0 RBC Folate 972 Hematocrit 32.2 L Medical Necessity - Tobacco Use Smoking Status: Never smoker Tobacco Use: Non-smoker Assessment/Plan All Active Problems (Last Updated 07/22/19 @ 10:25 by Darline Turcios MD) Elevated troponin (Acute) Chest pain (Acute) This is a 63 years old male patient presented to the emergency room because of chest pain, shortness of breath, weakness and cough and he was found to have suspected community acquired pneumonia with severe sepsis, acute kidney injury top of stage III chronic kidney disease, probably acute on chronic diastolic CHF, liver cirrhosis with significant ascites as well as indeterminate troponin. #1 suspected community-acquired pneumonia/severe sepsis: Remained IV Levaquin, renally adjusted dose. He has been afebrile, leukocyte count is trending up and this is likely because patient received IV steroids. Pneumococcal and Legionella antigen were negative. Respiratory panel for viruses were negative. Blood cultures pending. VQ scan was negative for PE. Plan to continue same treatment. #2 chest pain with indeterminate troponin: EKG with normal sinus rhythm and PVCs, no acute ST elevation. Troponin remained flat. He is on aspirin, metoprolol. Cardiology consulted, recommended no need for further cardiac work-up or interventions at this time. Plan to potassium treatment. #3 acute kidney injury on top of stage III chronic kidney disease/Hypokalemia Baseline creatinine has been around 1.3 to 1.8 mg/dL. Admission creatinine is 2.1, worsening today to 2.83 and it is likely because of diuresis. Patient was on Lasix and Zaroxolyn, Zaroxolyn discontinued yesterday and he has been on IV Lasix. Today's potassium is 3.3 which is likely because of IV Lasix. Patient's condition is improving, less short of breath. Plan: DC IV Lasix, replace potassium, repeat BMP tomorrow morning. #4 Probable acute on chronic diastolic CHF: Chest x-ray reviewed as above. He is on IV Lasix and metoprolol. Metolazone discontinued. Patient is feeling better, shortness of breath improved. Pulse ox is maintained on room air. Kidney function is worsening. Ejection fraction was 60% on May,. Plan to DC IV Lasix, repeat BMP tomorrow morning. #5 liver cirrhosis/ascites: This is chronic. Ultrasound revealed cirrhotic liver with ascites. Patient did have a history of hepatitis B more than 10 years ago. He is feeling better, abdomen is less distended and more soft. Plan to DC Lasix for now, monitor kidney function, resume Lasix once kidney function improves. #6 Paroxysmal atrial fibrillation: Rate is controlled, continue amiodarone and metoprolol for rate control, continue Xarelto for anticoagulation. #7 hypertension: Blood pressure stable, continue Norvasc, metoprolol and IV Z PRN. #8 history of DVT: Venous Doppler revealed no acute DVT, revealed bilateral thrombosed greater saphenous vein. Patient is on Xarelto. VQ scan of the lungs showed no acute PE. #9 CAD/nonischemic cardiomyopathy: Without prior history of cardiac interventions. Patient is on IV Lasix and metoprolol. 2D echocardiogram that was done on May, revealed ejection fraction of 60%. Plan as above to DC IV Lasix for now, continue metoprolol. #10 obstructive sleep apnea: Continue BiPAP. #11 DVT prophylaxis: Continue Xarelto. This note was generated with [employer] software. It may contain incorrect words, spelling, and punctuation that were not noted in checking the note before signing. Code Visit Inpatient E&M: 89123 Subs Hosp L2
[2019-07-24] MEDS: Aspirin E.C. 81 MG Tablet PO (09:02)
[2019-07-24] MEDS: Loratadine 10 MG Tablet PO (09:03)
[2019-07-24] MEDS: Montelukast 10 MG Tablet PO (09:03)
[2019-07-24] MEDS: Amiodarone 200 MG Tablet 100 MG PO (09:03)
[2019-07-24] MEDS: Metoprolol Tartrate 100 MG Tablet PO ×2 (09:03→21:08)
[2019-07-24] MEDS: Pantoprazole Sodium 40 MG Tablet PO (09:03)
[2019-07-24] MEDS: Fluticasone 0.05% 1 SPRAY NASAL.SRY 2 SPRAY NASAL (09:04)
[2019-07-24] MEDS: Acetaminophen 325 MG Tablet 650 MG PO (11:33)
[2019-07-24] MEDS: Rivaroxaban 15 MG Tablet PO (17:01)
[2019-07-24] MEDS: amLODIPine 5 MG Tablet PO (21:08)
[2019-07-24] MEDS: Pravastatin 20 MG Tablet PO (21:08)
[2019-07-25 03:00] VITALS: BP 125/79; PULSE 72; PULSE 75; RESP 16; TEMP 36.4; O2SAT 95
[2019-07-25 05:55] LABS: Anion Gap 6 (5-15); BUN 66 mg/dL (7-18); BUN/Creat Ratio 25.9 RATIO (10-20); Calcium,Total 7.7 mg/dL (8.5-10.1); Chloride 102 mmol/L (98-107); Creatinine, Serum 2.55 mg/dL (0.70-1.30); EST Glomerular Filtration Rate 27 mL/min (>60); Est Glom Filt Rate - Afr Amer 33 mL/min (>60); Estimated Creatinine Clearance 34.38 ml/min; Glucose 89 mg/dL (74-106); Potassium 3.9 mmol/L (3.5-5.1); Sodium Level 140 mmol/L (136-145)
[2019-07-25 05:57] LABS: Absolute Lymphocyte Count 0.95 X10^3/uL (0.83-4.51); Absolute Neutrophil Count 2.7 X10^3/uL (2.0-7.7); Eosinophil# 0.11 X10^3/uL; Eosinophils% 2.6 % (0-5); Hematocrit 30.6 % (40-54); Hemoglobin 9.7 g/dL (13.0-16.5); Lymphocyte # 0.95 X10^3/ul (4.0); Lymphocyte % 22.5 % (19-41); Mean Corp Hgb Conc 31.7 g/dL (32-36); Mean Corpuscular Hgb 31.2 pg (27.0-32.0); Mean Corpuscular Volume 98.4 fL (80-94); Monocyte# 0.42 X10^3/uL; NRBC Flagged by Analyzer 0 % (0-5); Neutrophil # 2.71 X10^3/uL (2.7-7.7); Neutrophil % 64.2 % (47-70); Platelet Count 116 K/mm3 (150-450); RBC Distribution Width CV 14.3 % (11.6-14.6); RBC Distribution Width SD 51.6 fl (35.1-43.9); Red Blood Count 3.11 M/mm3 (4.6-6.2); White Blood Count 4.2 K/mm3 (4.4-11.0)
[2019-07-25 07:00] VITALS: PULSE 65
[2019-07-25 07:21] VITALS: PULSE 77; RESP 16; O2SAT 92
[2019-07-25] MEDS: Ipratropium/Albuterol Sulfate 3 ML AMPUL.NEB INHALATION (07:21)
[2019-07-25 07:54] VITALS: BP 128/62; PULSE 84; RESP 18; TEMP 36.6; O2SAT 94
[2019-07-25] MEDS: Aspirin E.C. 81 MG Tablet PO (08:01)
--- NOTE | 2019-07-25 08:47 | PCM.DC ---
- Discharge Diagnoses Current Active Problems: Current Active and Chronic Problems (Last Updated 07/22/19 @ 10:25 by Darline Turcios MD) Elevated troponin (Acute) Chest pain (Acute) HLD (hyperlipidemia) (Chronic) You will use the following diet at home:: Cardiac Your food should be the consistency of: Regular Discharge Activity: Return to Normal Activity Weight Bearing Status: Weight bearing as tolerated Call your doctor if you observe: Fever of 101 or Higher, Shortness of breath, Dizziness, Fainting spells, Chest pain, Increased palpitations (irregular heartbeat), Uncontrolled pain Allergies/Adverse Reactions: Allergies cefuroxime axetil [From Ceftin] Allergy (Verified 07/21/19 19:59) Rash hydrocodone bitartrate [From Vicodin] Allergy (Verified 07/21/19 19:59) Rash Penicillins Allergy (Verified 07/21/19 19:59) Hives DIFFICULTY BREATHING carvedilol [From Coreg] Adverse Reaction (Verified 07/21/19 19:59) black out lisinopril Adverse Reaction (Verified 07/21/19 19:59) cough Medications to take at Discharge Omeprazole 40 mg PO DAILY 08/13/18 amiodarone 100 mg tablet 100 mg PO DAILY #30 tab 10/12/18 aspirin 81 mg tablet,delayed release 81 mg PO QDAY #30 tab 10/12/18 Metoprolol Tartrate [Lopressor (beta abram)] 100 mg PO BID 11/03/18 pravastatin 20 mg tablet 20 mg PO QHS #30 tab 04/12/19 albuterol sulfate HFA 90 mcg/actuation aerosol inhaler 2 puff INHALATION Q4H PRN #18 g 04/14/19 furosemide 80 mg tablet 80 mg PO BID tab 04/29/19 Fexofenadine HCl [Shu Allergy] 180 mg PO DAILY 07/21/19 Fluticasone 0.05% [Flonase Nasal [place]] 2 spray NASAL DAILY 07/21/19 Montelukast [Singulair] 10 mg PO DAILY 07/21/19 Potassium Chloride 20 meq PO DAILY 07/21/19 Amlodipine [Norvasc] 10 mg PO DAILY #30 tab 07/25/19 Rivaroxaban [Xarelto] 15 mg PO DAILY 07/25/19 levoFLOXacin tablet [Levaquin tablet] 750 mg PO QODAY #3 tab 07/25/19 The following prescriptions were given: levoFLOXacin tablet [Levaquin tablet] 750 mg PO QODAY #3 tab Transmission Status: Pending to [id number] Amlodipine [Norvasc] 10 mg PO DAILY #30 tab Transmission Status: Pending to [id number] Orders to be completed after discharge: Basic Metabolic Profile (BMP) Facility: [facility], Location: Laboratory Primary Care Physician: Ada Maravilla MD [Primary Care Provider] - Please follow up with your Primary Care Physician in: 4-5 days Test Results: Test results from this visit will be discussed in further detail at your follow-up appointment, if applicable. Please Follow Up With: Ada Maravilla MD
--- NOTE | 2019-07-25 11:40 | PCM.DC.SUM ---
Discharge Date and Diagnosis Date of Admission: 07/21/19 Date of Discharge: 07/25/19 - Primary Discharge Diagnosis #1 suspected community-acquired pneumonia with severe sepsis. #2 chest pain with indeterminate troponin. #3 acute kidney injury double stage III chronic kidney disease/hypokalemia. #4 probable acute on chronic diastolic CHF. #5 liver cirrhosis/ascites. - Secondary Discharge Diagnosis Chronic Problems (Last Updated 07/22/19 @ 10:25 by Darline Turcios MD) Chronic atrial fibrillation (Chronic) Noncompliant Xarelto Benign essential hypertension (Chronic) CHF (congestive heart failure) (Chronic) VTE (venous thromboembolism) (Chronic) Cardiomyopathy (Chronic) CAD (coronary artery disease) (Chronic) Long-term use of high-risk medication (Chronic) Obesity (BMI 30-39.9) (Chronic) Valvular heart disease (Chronic) Restrictive airway disease (Chronic) HLD (hyperlipidemia) (Chronic) Non-ischemic cardiomyopathy (Chronic) PAF (paroxysmal atrial fibrillation) (Chronic) DCCV in August 2017; Erectile dysfunction (Chronic) Obesity (BMI 30-39.9) (Chronic) ZAID (obstructive sleep apnea) (Chronic) DVT (deep venous thrombosis) (Chronic) Hospital Course and Treatment Imaging Results: Clinical Impression(s) from Imaging Studies Chest X-Ray 07/21/19 19:59 IMPRESSION: Left basilar atelectasis and/or scarring. Prominent interstitial markings, these may be chronic in nature however cannot exclude mild edema. Electronically Signed: Hope Francisco MD at 20:14 EDT Tel , Service support , Venous Duplex 07/21/19 22:09 IMPRESSION: No demonstrated deep vein thrombosis. Bilateral thrombosed greater saphenous veins from the midthighs to the lower calves. Electronically Signed: Hope Francisco MD at 23:27 EDT Tel , Service support , Chest X-Ray 07/22/19 05:59 IMPRESSION: Stable increased markings at the lung bases suggestive of residual bibasilar atelectasis and/or early infiltrates. Electronically Signed: Duke Duran, at 12:55 EDT , Service support , Lung Scan-VQ NM 07/22/19 10:53 IMPRESSION: Normal 99m Tc MAA pulmonary perfusion Tc DTPA aerosol ventilation imaging survey, according to revised PIOPED interpretive criteria. Electronically Signed: Duke Duran, at 12:54 EDT , Service support , Abdomen Ultrasound 07/22/19 11:07 IMPRESSION: Cirrhosis with ascites. Gallbladder wall thickening. Gallbladder wall thickening could be due to a calculus cholecystitis, however, could also be due to ascites, and could be due to cirrhosis. at 2216 Reported and signed by: Larry Calvo MD Electronically Signed: Larry Calvo MD at 22:15 EDT Tel , Service support , Dr. Javier, cardiology. Operations: None Procedures: EKG Summary of Care Provided: Patient seen and examined on the day of discharge and appeared to be stable to be discharged home. Shortness of breath significantly improved and he has been off oxygen. He feels better. His vital signs are stable. This is a 63 years old male patient presented to the emergency room because of chest pain, shortness of breath, weakness and cough and he was found to have suspected community acquired pneumonia with severe sepsis, acute kidney injury top of stage III chronic kidney disease, probably acute on chronic diastolic CHF, liver cirrhosis with significant ascites as well as indeterminate troponin. #1 suspected community-acquired pneumonia/severe sepsis: Treated with IV Levaquin. Patient remained afebrile for more than 48 hours and his white blood cell count returned back to normal. Pneumococcal and Legionella antigen were negative. Respiratory panel for viruses were negative. Blood cultures showed no growth in 48 hours. VQ scan was negative for PE. Patient discharged home on Levaquin 750 mg p.o. q. other day to complete total of 7 days of treatment. #2 chest pain with indeterminate troponin: EKG with normal sinus rhythm and PVCs, no acute ST elevation. Troponin remained flat. After admission, chest pain resolved. Cardiology consulted and recommended no further cardiac work-up at this time. Patient continued on aspirin, metoprolol. #3 acute kidney injury on top of stage III chronic kidney disease/Hypokalemia: Baseline creatinine has been around 1.3 to 1.8 mg/dL. Admission creatinine is 2.1, worsened to 2.83 after patient was started on IV Lasix. After stopping IV Lasix, creatinine came down to 2.55. Patient was on Xarelto as well which was discontinued. Potassium was replaced and corrected. Patient discharged back on Lasix 80 mg p.o. twice daily, metolazone and losartan discontinued, order given to repeat BMP in 3 to 4 days and follow-up with PCP shortly after. #4 Probable acute on chronic diastolic CHF: Treated with IV Lasix and continued on metoprolol. Metolazone discontinued. Ejection fraction was 60% on May,. With diuresis, patient symptoms improved and he was able to come off oxygen and his pulse ox remained above 92% on room air. #5 liver cirrhosis/ascites: This is chronic. Ultrasound revealed cirrhotic liver with ascites. Patient did have a history of hepatitis B more than 10 years ago. Patient discharged on diuretics. #6 Paroxysmal atrial fibrillation: continued on amiodarone and metoprolol for rate control, resumed on Xarelto for anticoagulation. #7 hypertension: Blood pressure stable, continued on metoprolol and Lasix, Norvasc increased to 10 mg p.o. daily, losartan discontinued. #8 history of DVT: Venous Doppler revealed no acute DVT, revealed bilateral thrombosed greater saphenous vein. Resumed back on Xarelto. Patient discharged home in a stable medical condition, discharged on Levaquin p.o. q. other day to complete total 7 days of treatment, discharged on Lasix 40 g p.o. twice daily, Norvasc increased to 10 mg p.o. daily, losartan and metolazone discontinued because of worsening kidney function although it was improved, resumed back on Xarelto, order given to repeat BMP in 3 to 4 days, follow-up with PCP in 5 to 6 days. This note was generated with Dragon dictation software. It may contain incorrect words, spelling, and punctuation that were not noted in checking the note before signing. - Physical Exam General: Alert, Oriented x3, Cooperative, No apparent distress HEENT: Atraumatic, PERRLA, EOMI, Normocephalic Oral: Moist Mucosa, No Gingival or Mucosal Lesions/ Ulcerations Neck: Supple, No JVD, Negative Carotid Bruits, Trachea Midline, Thyroid Normal Size and Texture Lungs: Clear to auscultation, Normal air movement, No rhonchi, No wheeze, No rales, Diminished Cardiovascular: Regular rate, Regular Rhythm, Normal S1, Normal S2 Abdomen: Bowel Sounds Present, Soft, Non Tender, Non-Distended, No Hepato-splenomegaly, Obese Extremities: No clubbing, No cyanosis, Edema Skin: No rashes, No breakdown Lymphatic: No Cervical, Supraclavicular, or Inguinal Adenopathy Neurological: Cranial nerves II-XII grossly intact, Neuro grossly intact Psych/Mental Status: Normal Affect, Appropriate Vital Signs Temp Pulse Resp BP Pulse Ox 97.8 F 84 18 128/62 H 94 07/25/19 07:54 07/25/19 07:54 07/25/19 07:54 07/25/19 07:54 07/25/19 07:54 Oxygen Flow Rate (L/min) 1 Oxygen Delivery Method Room Air Weight: 276 lb 7.355 oz Body Mass Index (BMI) 36.2 Finger Stick Blood Glucose 86 Intake and Output for Last 24 Hours 07/23/19 07/24/19 07/25/19 23:59 23:59 23:59 Intake Total 1518.70 / 1518.70 300 / 300 225 / 225 Output Total 1625 / 1625 650 / 650 525 / 525 Balance -106.30 / -106.30 -350 / -350 -300 / -300 Microbiology Past 72 Hours 07/21/19 20:23 Blood Culture - Preliminary Blood Culture (Wb) - Left Forearm No growth in 48 hours. 07/21/19 19:55 Blood Culture - Preliminary Blood Culture (Wb) - Anticubital Right No growth in 48 hours. 07/21/19 23:04 Respiratory Panel (PCR) - Final Mucosa - Nose Laboratory Tests Past 24 Hrs 07/25/19 07/25/19 05:10 05:10 WBC 4.2 L RBC 3.11 L Hgb 9.7 L Hct 30.6 L MCV 98.4 H MCH 31.2 MCHC 31.7 L RDW Std Deviation 51.6 H RDW Coeff of Carlos 14.3 Plt Count 116 L MPV 11.0 Immature Gran % (Auto) 0.700 Neut % (Auto) 64.2 Lymph % (Auto) 22.5 [place] % (Auto) 10.0 Eos % (Auto) 2.6 Baso % (Auto) 0.0 Absolute Neuts (auto) 2.7 Absolute Lymphs (auto) 0.95 Nucleated RBC % 0 Sodium 140 Potassium 3.9 Chloride 102 Carbon Dioxide 32.0 Anion Gap 6 BUN 66 H Creatinine 2.55 H Estim Creat Clear Calc 34.38 Est GFR (MDRD) Af Amer 33 L Est GFR (MDRD) Non-Af 27 L BUN/Creatinine Ratio 25.9 H Glucose 89 Calcium 7.7 L Discharge Activity: Return to Normal Activity Weight Bearing Status: Weight bearing as tolerated Call your doctor if you observe: Fever of 101 or Higher, Shortness of breath, Dizziness, Fainting spells, Chest pain, Increased palpitations (irregular heartbeat), Uncontrolled pain Home Medications: Medications to take at Discharge Omeprazole 40 mg PO DAILY 08/13/18 amiodarone 100 mg tablet 100 mg PO DAILY #30 tab 10/12/18 aspirin 81 mg tablet,delayed release 81 mg PO QDAY #30 tab 10/12/18 Metoprolol Tartrate [Lopressor (beta abram)] 100 mg PO BID 11/03/18 pravastatin 20 mg tablet 20 mg PO QHS #30 tab 04/12/19 albuterol sulfate HFA 90 mcg/actuation aerosol inhaler 2 puff INHALATION Q4H PRN #18 g 04/14/19 furosemide 80 mg tablet 80 mg PO BID tab 04/29/19 Fexofenadine HCl [Shu Allergy] 180 mg PO DAILY 07/21/19 Fluticasone 0.05% [Flonase Nasal [place]] 2 spray NASAL DAILY 07/21/19 Montelukast [Singulair] 10 mg PO DAILY 07/21/19 Potassium Chloride 20 meq PO DAILY 07/21/19 Amlodipine [Norvasc] 10 mg PO DAILY #30 tab 07/25/19 Rivaroxaban [Xarelto] 15 mg PO DAILY 07/25/19 levoFLOXacin tablet [Levaquin tablet] 750 mg PO QODAY #3 tab 07/25/19 Following Prescrptions Were Given to Patient: levoFLOXacin tablet [Levaquin tablet] 750 mg PO QODAY #3 tab Transmission Status: Received by [id number] Amlodipine [Norvasc] 10 mg PO DAILY #30 tab Transmission Status: Received by [id number] Other Amb Orders: Basic Metabolic Profile (BMP) Facility: [facility], Location: Laboratory Primary Care Physician: Ada Maravilla MD [Primary Care Provider] - Please follow up with your Primary Care Physician in: 4-5 days Please Follow Up With: Ada Maravilla MD Disposition: Home Minutes spent on discharge:: 34 Patient Condition:: Stable Medical Necessity - Tobacco Use Smoking Status: Never smoker Tobacco Use: Non-smoker Meaningful Use Info Meaningful Use Diagnoses (Choose all that apply): CHF - CHF AALIYAH/ARB ordered at discharge?: No Reason AALIYAH/ARB not ordered?: Worsening renal disease Documented LVEF (%): 60 Code Visit Inpatient E&M: 33232 Disch Hosp
--- NOTE | 2019-07-26 14:23 | CASEMGMT ---
YANY CM DC PHONE CALL DC DATE: 07/25/19 DC Disposition: Home Diagnosis on Discharge: chest pain, elevated troponin LACE/STRATA: 09/08 Attempted call to cell phone. No answer and no message machine with name identifier. Lindsay PRO RN ACM
--- NOTE | 2019-07-26 15:12 | CASEMGMT ---
Call to intake at [facility] and they state that pt has been accepted but she does state that they don't normally take [employer] insurance but that they are taking him. Intake requests no further clinicals at this time. Anders SLADE CM
== END 2019-07-25 09:56 | disposition home or self-care (01) | DRG 139 ==
LOC: ED 20:19 → PCU 21:52
PROVIDERS: Physician Assistant; Admitting Provider Family Medicine; Emergency Provider Emergency Medicine; Family Provider Internal Medicine; PCP Internal Medicine; Visit Provider Hospitalist
DX: J18.9 Pneumonia, unspecified organism (principal); E78.5 Hyperlipidemia, unspecified; E66.9 Obesity, unspecified; Z68.36 Body mass index [BMI] 36.0-36.9, adult; Z66 Do not resuscitate; G47.33 Obstructive sleep apnea (adult) (pediatric); N18.3 Chronic kidney disease, stage 3 (moderate); N17.9 Acute kidney failure, unspecified; E87.6 Hypokalemia; I50.33 Acute on chronic diastolic (congestive) heart failure; I13.0 Hypertensive heart and chronic kidney disease with heart failure and stage 1 through stage 4 chronic kidney disease, or unspecified chronic kidney disease; R18.8 Other ascites; K74.60 Unspecified cirrhosis of liver; I48.20 Chronic atrial fibrillation, unspecified; I25.10 Atherosclerotic heart disease of native coronary artery without angina pectoris; I42.8 Other cardiomyopathies
CPT/HCPCS: 36415; 71045; 71046; 76705; 78582; 80048; 80053; 80061; 80076; 81001; 82607; 82728; 82747; 83540; 83550; 83605; 83690; 83735; 83880; 84484; 85014; 85025; 85379; 85610; 85730; 87040; 87449; 87633; 93005; 93970; 94640; 94667; 94668; 97110; 97162; 97166; 97535; 97802; 99283; A9540; A9567; J7030; A4216; J1940

== ENCOUNTER → 2019-07-30 | Outpatient (CLI) | payer MEDICAID, SELFPAY ==
[2019-07-22 00:16] VITALS: BMI 36.2
[2019-07-30 17:26] LABS: Anion Gap 7 (5-15); BUN 41 mg/dL (7-18); BUN/Creat Ratio 19.2 RATIO (10-20); Calcium,Total 7.6 mg/dL (8.5-10.1); Chloride 106 mmol/L (98-107); Creatinine, Serum 2.13 mg/dL (0.70-1.30); EST Glomerular Filtration Rate 34 mL/min (>60); Est Glom Filt Rate - Afr Amer 41 mL/min (>60); Glucose 111 mg/dL (74-106); Potassium 3.3 mmol/L (3.5-5.1); Sodium Level 140 mmol/L (136-145)
== END | disposition home or self-care (01) ==
PROVIDERS: Family Provider Internal Medicine; PCP Internal Medicine; Referring Provider Hospitalist; Visit Provider Hospitalist
DX: N17.9 Acute kidney failure, unspecified (principal); N18.3 Chronic kidney disease, stage 3 (moderate)
CPT/HCPCS: 36415; 80048

== ENCOUNTER → 2019-08-03 | Outpatient (CLI) | payer MEDICAID, SELFPAY ==
[2019-07-22 00:16] VITALS: BMI 36.2
[2019-08-03 12:49] LABS: Protein:Creat Ratio 92 mg/g CRE (0-200)
== END | disposition home or self-care (01) ==
LOC: POLAB3 12:21
PROVIDERS: Family Provider Internal Medicine; PCP Internal Medicine; Visit Provider Internal Medicine Nephrology
DX: N18.3 Chronic kidney disease, stage 3 (moderate) (principal)
CPT/HCPCS: 82570; 84156

== ENCOUNTER → 2019-08-10 | Outpatient (CLI) | payer MEDICAID, SELFPAY ==
[2019-08-09 15:07] VITALS: BMI 39.3
[2019-08-10 17:54] LABS: Absolute Lymphocyte Count 2.49 X10^3/uL (0.83-4.51); Absolute Neutrophil Count 3.4 X10^3/uL (2.0-7.7); Basophil# 0.03 X10^3/uL; Basophil% 0.4 % (0-1); Eosinophil# 0.34 X10^3/uL; Eosinophils% 4.9 % (0-5); Hematocrit 35.2 % (40-54); Hemoglobin 11.2 g/dL (13.0-16.5); Lymphocyte # 2.49 X10^3/ul (4.0); Lymphocyte % 36.2 % (19-41); Mean Corp Hgb Conc 31.8 g/dL (32-36); Mean Corpuscular Hgb 31.3 pg (27.0-32.0); Mean Corpuscular Volume 98.3 fL (80-94); Mean Platelet Vol. 10.7 fl (6.2-12.0); Monocyte# 0.65 X10^3/uL; Monocyte% 9.4 % (0-10); NRBC Flagged by Analyzer 0 % (0-5); Neutrophil # 3.35 X10^3/uL (2.7-7.7); Neutrophil % 48.8 % (47-70); Platelet Count 250 K/mm3 (150-450); RBC Distribution Width CV 15.7 % (11.6-14.6); Red Blood Count 3.58 M/mm3 (4.6-6.2); White Blood Count 6.9 K/mm3 (4.4-11.0)
[2019-08-10 18:17] LABS: ALB/GLOB Ratio 0.5 RATIO (0.9-2.4); AST(SGOT) 49 U/L (15-37); Alanine Aminotransfer ALT/SGPT 33 U/L (16-61); Albumin, Serum 2.5 g/dL (3.2-5.0); Alkaline Phosphatase 234 U/L (45-117); Anion Gap 7 (5-15); BUN 28 mg/dL (7-18); BUN/Creat Ratio 13.8 RATIO (10-20); Calcium,Total 8.3 mg/dL (8.5-10.1); Chloride 104 mmol/L (98-107); Creatinine, Serum 2.03 mg/dL (0.70-1.30); EST Glomerular Filtration Rate 36 mL/min (>60); Est Glom Filt Rate - Afr Amer 43 mL/min (>60); Globulin 4.6 g/dL (2.2-4.2); Glucose 102 mg/dL (74-106); PSA,Total - Annual Screen 0.99 ng/mL (0.00-4.00); Potassium 3.8 mmol/L (3.5-5.1); Protein, Total 7.1 g/dL (6.4-8.2); Sodium Level 139 mmol/L (136-145); Thyroid Stim Hormone (TSH) 2.97 uIU/mL (0.358-3.74)
[2019-08-11 09:28] LABS: HIV - WCH Non-Reactive (Nonreactive); Hepatitis C Antibody Non-Reactive (Nonreactive)
[2019-08-12 02:20] LABS: Rapid Plasmin Reagin (RPR) NONREACTIVE (NONREACTIVE)
[2019-08-13 12:08] LABS: Chlamydia By Nucleic Acid AMP Negative (Negative); HEPATITIS B SURFACE AG Negative (Negative); Hepatitis A AB, Total Negative (Negative); Hepatitis A IgM Antibody Negative (Negative); Hepatitis B Core AB IgM Positive (Negative); Hepatitis B Core Ab Total Positive (Negative); Hepatitis C Ab 0.3 s/co ratio (0.0-0.9)
[2019-08-13 16:22] LABS: Hep B Surface Antibodies Reactive (.)
[2019-08-13 16:23] LABS: Gonococcus By Nucleic Acid AMP Negative (Negative)
== END | disposition home or self-care (01) ==
LOC: POLAB3 16:13
PROVIDERS: Family Provider Family Medicine Geriatric Medicine; PCP Family Medicine Geriatric Medicine; Visit Provider Family Medicine Geriatric Medicine
DX: A64 Unspecified sexually transmitted disease (principal); R53.83 Other fatigue; Z12.5 Encounter for screening for malignant neoplasm of prostate; Z13.89 Encounter for screening for other disorder
CPT/HCPCS: 36415; 80053; 84153; 84443; 85025; 86592; 86703; 86704; 86705; 86706; 86708; 86709; 86803; 87340; 87491; 87591; G0103

== ENCOUNTER → 2019-08-17 | Outpatient (CLI) | payer MEDICAID, SELFPAY ==
[2019-08-16 13:55] VITALS: BMI 39.3
--- NOTE | 2019-08-17 16:30 | RAD_ITS ---
STUDY: X-RAY - ABDOMEN/PELVIS REASON FOR EXAM: Male, 64 years old. Constipation TECHNIQUE: 3 views of the abdomen were obtained COMPARISON: 07/22/2019 chest radiograph FINDINGS: Heterogeneous right basilar pulmonary opacity. No pneumothorax. Atherosclerosis of the aortic knob. Dilated loops of small bowel are noted. There is no demonstrated free abdominal air. Normal soft tissue structures. Normal visualized osseous structures. Hernia repair hardware is noted within the pelvis. RAD/Abdomen Single View IMPRESSION: Multiple gaseously distended loops of small bowel may be consistent with a small bowel obstruction in the appropriate clinical setting. Heterogeneous right basilar pulmonary opacity may be consistent with pneumonia in the appropriate clinical setting. Electronically Signed: Kevin Diaz, at 17:47 EST Tel , Service support ,
== END | disposition home or self-care (01) ==
LOC: RAD 16:16
PROVIDERS: Family Provider Family Medicine Geriatric Medicine; PCP Family Medicine Geriatric Medicine; Referring Provider Family Medicine Geriatric Medicine; Visit Provider Family Medicine Geriatric Medicine
DX: R19.7 Diarrhea, unspecified (principal)
CPT/HCPCS: 74018

== ENCOUNTER 2019-08-28 23:17 | Inpatient (IN) | payer MEDICAID, SELFPAY ==
[2019-08-24 16:46] VITALS: BMI 34.4
[2019-08-28 23:19] VITALS: BP 150/89; PULSE 95; RESP 18; TEMP 37.2; O2SAT 90; BMI 27.0
--- NOTE | 2019-08-28 23:39 | EKG12_ITS ---
Test Reason : SOB Blood Pressure : / mmHG Vent. Rate : 102 BPM Atrial Rate : 102 BPM P-R Int : 174 ms QRS Dur : 114 ms QT Int : 332 ms P-R-T Axes : 036 -13 104 degrees QTc Int : [address] & T wave abnormality, consider lateral ischemia Abnormal ECG Confirmed by ALEKSEY MARTINES, DEMETRIS ([id number]), make up editor SLAVA HERRERA ([id number]) on 08/31/2019 10:06:10 AM Referred By: Jocelyn Briggs Confirmed By:DEMETRIS RYDER MD
--- NOTE | 2019-08-28 23:40 | ED.DCSUM_ITS ---
History of Present Illness Chief Complaint: Shortness of Breath Narrative: Patient is a 64-year-old male who presents with cough and shortness of breath. He was admitted in July for shortness of breath and presumed pneumonia. He also had a normal VQ scan at that time as he does have a history of DVT. His cough was improving. However a couple of days ago his cough returned and has become severe. It is occasionally productive. He states his chest is sore with aching pain from coughing. He has rhinorrhea. No fevers. No abdominal pain nausea vomiting diarrhea. Past Medical History - Allergies and Home Meds Allergies/Adverse Reactions: Allergies cefuroxime axetil [From Ceftin] Allergy (Verified 08/28/19 23:20) Rash hydrocodone bitartrate [From Vicodin] Allergy (Verified 08/28/19 23:20) Rash Penicillins Allergy (Verified 08/28/19 23:20) Hives DIFFICULTY BREATHING carvedilol [From Coreg] Adverse Reaction (Verified 08/28/19 23:20) black out lisinopril Adverse Reaction (Verified 08/28/19 23:20) cough Primary Care Physician: Zion Palmer MD [Primary Care Provider] - Past Medical History: - - Congestive heart failure, chronic kidney disease, history of DVT, hepatitis Surgical History: - - Detached retinal repair, left inguinal hernia. Smoking Status: Never smoker - Family History Paternal Family History: Family History (Last Updated 08/24/19 @ 14:44 by Nava Mosley) Mother CAD (coronary artery disease) Heart disease Hypertension Respiratory disease Father Bowel disease Depression Respiratory disease H/O ulcer disease Family History: Reports: Cancer, Heart Disease, Pulmonary Disease Maternal Family History: Family History (Last Updated 08/24/19 @ 14:44 by Nava Mosley) Mother CAD (coronary artery disease) Heart disease Hypertension Respiratory disease Father Bowel disease Depression Respiratory disease H/O ulcer disease Family History: Reports: Heart Disease Review of Systems All systems negative except as indicated General: Denies: Fever Eyes: Denies: Visual changes - bilaterally ENT: Denies: Bilateral ear pain Cardiovascular: Reports: Chest pain Respiratory: Reports: Dyspnea, Cough, Sputum Gastrointestinal: Denies: Abdominal pain, Nausea, Vomiting, Diarrhea Genitourinary: Denies: Dysuria Musculoskeletal: Denies: Myalgias, Arthralgias Skin: Denies: Rash Neurological: Denies: Headache Physical Exam Vital Signs/Narrative: Vital Signs Temp Pulse Resp BP Pulse Ox 08/28/19 23:19 99.0 F 95 18 150/89 H 90 Inital Vital Signs reviewed: Yes General: Well nourished Head: Normocephalic Eyes: EOMI ENT: Moist mucous membranes Neck: Supple Cardiovascular: Regular rate, Regular rhythm Respiratory: No distress, - - Scattered expiratory wheezes Abdomen: Soft Back: Nontender Extremities: Nontender Skin: Normal color Neurological: Alert Psychological: Normal affect Diagnostic/Tx/Re-eval Impressions Chest X-Ray 08/28/19 23:40 IMPRESSION: Chronic interestitial changes. No radiographic evidence of acute cardiopulmonary disease. at 0016 Reported and signed by: Larry Calvo MD Electronically Signed: Larry Calvo MD at 0:15 EST Tel , Service support , Chest CT 08/29/19 00:40 IMPRESSION: Mild age-related pulmonary fibrosis with otherwise pulmonary hyperexpansion. Coronary artery calcific ASCVD. Probable chronic mild pulmonary hypertension. Cirrhosis. Splenomegaly with varices. Cholelithiasis. Individualized dose optimization techniques were used for this CT. at 0121 Reported and signed by: Larry Calvo MD Electronically Signed: Larry Calvo MD at 1:20 EST Tel , Service support , 08/28/19 23:40 Chest 1 View (Portable) [RAD] Stat 08/29/19 00:40 CT Chest [Chest without Contrast] [CT] Stat Laboratory Results 08/28/19 08/28/19 08/28/19 23:54 23:54 23:54 WBC 13.6 H RBC 3.79 L Hgb 12.1 L Hct 37.5 L MCV 98.9 H MCH 31.9 MCHC 32.3 RDW Std Deviation 55.2 H RDW Coeff of Carlos 15.2 H Plt Count 223 MPV 9.5 Immature Gran % (Auto) 0.500 Neut % (Auto) 85.2 H Lymph % (Auto) 8.9 L [place] % (Auto) 4.2 Eos % (Auto) 1.0 Baso % (Auto) 0.2 Absolute Neuts (auto) 11.5 H Absolute Lymphs (auto) 1.21 Nucleated RBC % 0 Sodium 138 Potassium 5.1 Chloride 104 Carbon Dioxide 27.0 Anion Gap 7 BUN 37 H Creatinine 2.98 H Estim Creat Clear Calc 29.05 Est GFR (MDRD) Af Amer 28 L Est GFR (MDRD) Non-Af 23 L BUN/Creatinine Ratio 12.4 Glucose 93 Calcium 8.3 L Troponin I 0.031 B-Natriuretic Peptide 379.9 H - Medical Decision Making EKG shows sinus tachycardia at a rate of [address] depression. Laboratory studies are notable for BNP of 379 and mild leukocytosis. Chest x- ray showed chronic changes. Patient did recently have a similar presentation and was treated for presumed pneumonia. He also had a negative VQ scan. Given his recurrence of symptoms I did obtain a CT of the chest to further evaluate his lungs. This shows mild pulmonary fibrosis as well as probable chronic mild pulmonary hypertension, cirrhosis, splenomegaly. Patient does not have evidence of clear pneumonia or overt congestive heart failure. This may be progression of his chronic disease, however even while at rest in the room with just speaking the would desaturate down to the low 80s. He was put on nasal cannula. If nothing else he may need to set up for home oxygen. I do feel he should be hospitalized and possible pulmonology consultation. Patient will be discussed with the hospitalist and admitted. ED Disposition - Plan for ED Patient: Disposition: Acute Care Hospital [facility] Diagnosis: Hypoxia, Dyspnea Referrals: Zion Palmer MD [Primary Care Provider] -
--- NOTE | 2019-08-28 23:40 | RAD_ITS ---
HISTORY: shortness of breath, cough EXAM: XR Chest 1 View COMPARISON: July 22, 2019 FINDINGS: LINES/DEVICES: None. LUNGS: There are chronic interstitial changes. No pneumothorax. No consolidation or effusion. MEDIASTINUM AND CARDIOVASCULAR STRUCTURES: Cardiac silhouette not enlarged. Central airways and mediastinal contour are unremarkable. Athersclerotic plaque within the aortic arch. BONES AND SOFT TISSUES: Thoracic spondylosis. RAD/Chest 1 View (Portable) IMPRESSION: Chronic interestitial changes. No radiographic evidence of acute cardiopulmonary disease. at 0016 Reported and signed by: Larry Calvo MD Electronically Signed: Larry Calvo MD at 0:15 EST Tel , Service support ,
[2019-08-28 23:59] LABS: Absolute Lymphocyte Count 1.21 X10^3/uL (0.83-4.51); Absolute Neutrophil Count 11.5 X10^3/uL (2.0-7.7); Basophil# 0.03 X10^3/uL; Basophil% 0.2 % (0-1); Eosinophil# 0.14 X10^3/uL; Hematocrit 37.5 % (40-54); Hemoglobin 12.1 g/dL (13.0-16.5); Lymphocyte # 1.21 X10^3/ul (4.0); Lymphocyte % 8.9 % (19-41); Mean Corp Hgb Conc 32.3 g/dL (32-36); Mean Corpuscular Hgb 31.9 pg (27.0-32.0); Mean Corpuscular Volume 98.9 fL (80-94); Mean Platelet Vol. 9.5 fl (6.2-12.0); Monocyte# 0.57 X10^3/uL; Monocyte% 4.2 % (0-10); NRBC Flagged by Analyzer 0 % (0-5); Neutrophil # 11.53 X10^3/uL (2.7-7.7); Neutrophil % 85.2 % (47-70); Platelet Count 223 K/mm3 (150-450); RBC Distribution Width CV 15.2 % (11.6-14.6); RBC Distribution Width SD 55.2 fl (35.1-43.9); Red Blood Count 3.79 M/mm3 (4.6-6.2); White Blood Count 13.6 K/mm3 (4.4-11.0)
[2019-08-29] VITALS (20 sets, daily range): BP systolic 94–106; BP diastolic 47–82; PULSE 68–100; RESP 12–32; TEMP 36.4–37.1; O2SAT 86–98; BMI 31.9; BMI 32.0
[2019-08-29] MEDS: Ipratropium/Albuterol Sulfate 3 ML AMPUL.NEB INHALATION ×4 (00:01→19:08)
[2019-08-29 00:17] LABS: Anion Gap 7 (5-15); BUN 37 mg/dL (7-18); BUN/Creat Ratio 12.4 RATIO (10-20); Calcium,Total 8.3 mg/dL (8.5-10.1); Chloride 104 mmol/L (98-107); Creatinine, Serum 2.98 mg/dL (0.70-1.30); EST Glomerular Filtration Rate 23 mL/min (>60); Est Glom Filt Rate - Afr Amer 28 mL/min (>60); Estimated Creatinine Clearance 29.05 ml/min; Glucose 93 mg/dL (74-106); Potassium 5.1 mmol/L (3.5-5.1); Sodium Level 138 mmol/L (136-145)
[2019-08-29 00:39] LABS: BNP,B-Type NATRIURETIC PEPTIDE 379.9 pg/mL (0-100)
--- NOTE | 2019-08-29 00:40 | CT_ITS ---
HISTORY: COUGH. Hx of HTN, kidney disease and cirrhosis TECHNIQUE: Helically acquired images were obtained of the chest. A radiation dose optimization technique was used for this scan. IV Contrast dosage and agent: None. COMPARISON: A lung ventilation and perfusion scan from July 22, 2019. A chest x-ray is available from an hour earlier. No previous CT scan of the chest. FINDINGS: # of images incl. paperwork: [id number] LUNGS AND LARGE AIRWAYS: Pulmonary fibrosis. Minimal pulmonary hyperexpansion. Some bronchiectasis. PLEURA: Minimal pleural thickening and scarring BONES: Likely decreased bone mineral density. No lytic or blastic lesions are perceived. HEART AND PERICARDIUM: Heart is enlarged. Coronary artery calcific ASCVD. VESSELS: Elongation of thoracic aorta without aneurysm MEDIASTINUM AND DELBERT: There is minimal mediastinal adenopathy SOFT TISSUES: Included thyroid gland is unremarkable. There is no axillary, supraclavicular or lower cervical adenopathy. UPPER ABDOMEN: Cirrhosis. Ascites. Probable splenomegaly. Varices are suspected especially across the greater curvature of the stomach. Cholelithiasis without intra-or extrahepatic biliary ductal dilatation. CT/Chest without Contrast IMPRESSION: Mild age-related pulmonary fibrosis with otherwise pulmonary hyperexpansion. Coronary artery calcific ASCVD. Probable chronic mild pulmonary hypertension. Cirrhosis. Splenomegaly with varices. Cholelithiasis. Individualized dose optimization techniques were used for this CT. at 0121 Reported and signed by: Larry Calvo MD Electronically Signed: Larry Calvo MD at 1:20 EST Tel , Service support ,
--- NOTE | 2019-08-29 01:38 | PCM.HP.STD ---
Problem List (1) Hypoxia Status: Acute (2) ROSS (acute kidney injury) Status: Acute (3) Restrictive airway disease Status: Chronic (4) Kidney disease, chronic, stage III (moderate, EGFR 30-59 ml/min) Status: Chronic (5) Chronic atrial fibrillation Status: Chronic Comment: Noncompliant Xarelto (6) Benign essential hypertension Status: Chronic (7) CHF (congestive heart failure) Status: Chronic Qualifiers: Heart failure type: diastolic Heart failure chronicity: chronic Qualified Code(s): I50.32 - Chronic diastolic (congestive) heart failure (8) CAD (coronary artery disease) Status: Chronic Qualifiers: Coronary Disease-Associated Artery/Lesion type: [place] artery [place] vs. transplanted heart: elim ira heart Associated angina: without angina Qualified Code(s): I25.10 - Atherosclerotic heart disease of [place] coronary artery without angina pectoris (9) Valvular heart disease Status: Chronic (10) HLD (hyperlipidemia) Status: Chronic Qualifiers: Hyperlipidemia type: unspecified Qualified Code(s): E78.5 - Hyperlipidemia, unspecified (11) Non-ischemic cardiomyopathy Status: Chronic (12) PAF (paroxysmal atrial fibrillation) Status: Chronic Comment: DCCV in August 2017; (13) Obesity (BMI 30-39.9) Status: Chronic (14) ZAID (obstructive sleep apnea) Status: Chronic (15) DVT (deep venous thrombosis) Status: Chronic Qualifiers: DVT location: lower extremity Affected thrombotic vein of extremity: unspecified vein of extremity Chronicity: unspecified Laterality: right Qualified Code(s): I82.401 - Acute embolism and thrombosis of unspecified deep veins of right lower extremity History of Present Illness Date of Admission: 08/29/19 Chief Complaint: Dyspnea, coughing The patient is a 64 y/o M w/ PMHx: Obesity, Hx DVT, HTN, HLD, PAF, Liver Cirrhosis/Ascites w/ Hepatitis B, Diastolic CHF, Non-ischemic Cardiomyopathy, ZAID, CKD stage III who was recently admitted 07/21-07/25/19 for severe sepsis secondary to CAP with chest pain with current cardiac enzyme and ROSS on CKD stage III as well as probable acute on chronic diastolic CHF with a negative VQ scan at that time although does have a history of DVT who now re-presents to the [facility] ED on 08/29/19 with history of now recurrent occasionally productive cough and dyspnea, more severe with notable chest discomfort secondary to severity of coughing with rhinorrhea without fevers or chills prompting return to the ED as it has been ongoing for the last couple days. Work-up in the ED included T 99, heart rate 95, BP 150/89, respiratory rate 18, 90% on room air--> repeat BP 94/47, respiratory rate 24, 96% on 2 L nasal cannula, CBC with WC 13.6, hemoglobin 12.1, platelet 223 with left shift, BMP with BUN/creatinine 37/2.98, troponin 0.031, BNP 379.9, chest x-ray with chronic interstitial changes with no acute cardiopulmonary findings, follow-up CT chest with mild age-related pulmonary fibrosis with otherwise pulmonary hyperexpansion, coronary artery calcific ASCVD, probable chronic mild pulmonary hypertension, cirrhosis, splenomegaly with varices, cholelithiasis. In the ED patient ministered DuoNeb therapy. Past Medical History Past Medical History (Chronic Problems): Chronic Problems (Last Updated 08/24/19 @ 14:59 by Nava Mosley) Deafness in left ear (Chronic) Deficiency anemia (Chronic) Sleep apnea (Chronic) Kidney disease, chronic, stage III (moderate, EGFR 30-59 ml/min) (Chronic) Cirrhosis of liver (Chronic) IBS (irritable bowel syndrome) (Chronic) Hypertension (Chronic) Hepatitis B (Chronic) Hearing problem (Chronic) Frequent headaches (Chronic) Back problem (Chronic) Arthritis (Chronic) Iron deficiency anemia (Chronic) Ascites (Chronic) Chronic atrial fibrillation (Chronic) Noncompliant Xarelto Benign essential hypertension (Chronic) CHF (congestive heart failure) (Chronic) VTE (venous thromboembolism) (Chronic) Cardiomyopathy (Chronic) CAD (coronary artery disease) (Chronic) Long-term use of high-risk medication (Chronic) Obesity (BMI 30-39.9) (Chronic) Valvular heart disease (Chronic) Restrictive airway disease (Chronic) HLD (hyperlipidemia) (Chronic) Non-ischemic cardiomyopathy (Chronic) PAF (paroxysmal atrial fibrillation) (Chronic) [facility]; Erectile dysfunction (Chronic) Obesity (BMI 30-39.9) (Chronic) ZAID (obstructive sleep apnea) (Chronic) DVT (deep venous thrombosis) (Chronic) Medical History: Medical History (Last Updated 08/24/19 @ 14:59 by Nava Mosley) Deafness in left ear (Chronic) H91.92 Deficiency anemia (Chronic) D53.9 Sleep apnea (Chronic) G47.30 Kidney disease, chronic, stage III (moderate, EGFR 30-59 ml/min) (Chronic) N18.3 Cirrhosis of liver (Chronic) K74.60 IBS (irritable bowel syndrome) (Chronic) K58.9 Hypertension (Chronic) I10 Hepatitis B (Chronic) B19.10 Hearing problem (Chronic) H91.90 Frequent headaches (Chronic) R51 Back problem (Chronic) M53.9 Arthritis (Chronic) M19.90 Non-ischemic cardiomyopathy (Chronic) I42.8 PAF (paroxysmal atrial fibrillation) (Chronic) I48.0 DCCV in August 2017; Erectile dysfunction (Chronic) N52.9 Obesity (BMI 30-39.9) (Chronic) E66.9 ZAID (obstructive sleep apnea) (Chronic) G47.33 DVT (deep venous thrombosis) (Chronic) I82.409 History of cardioversion (Inactive) Onset Date: ~08/2017 Z98.890 Allergies cefuroxime axetil [From Ceftin] Allergy (Verified 08/28/19 23:20) Rash hydrocodone bitartrate [From Vicodin] Allergy (Verified 08/28/19 23:20) Rash Penicillins Allergy (Verified 08/28/19 23:20) Hives DIFFICULTY BREATHING carvedilol [From Coreg] Adverse Reaction (Verified 08/28/19 23:20) black out lisinopril Adverse Reaction (Verified 08/28/19 23:20) cough Home Medications: Ambulatory Orders Medication Instructions Recorded amiodarone 100 mg tablet 100 mg PO DAILY #30 tab 10/12/18 Metoprolol Tartrate [Lopressor 100 mg PO BID 11/03/18 (beta abram)] Potassium Chloride 20 meq PO BID 07/21/19 torsemide 20 mg tablet 20 mg PO BID #60 tab 08/06/19 Rivaroxaban [Xarelto] 20 mg PO QHS 08/09/19 Spironolactone [Aldactone] 50 mg PO BID #60 tab 08/09/19 Famotidine 40 mg PO DAILY 08/28/19 Surgical History: Surgical History (Last Updated 08/24/19 @ 14:42 by Nava Mosley) History of cataract surgery Z98.49 Both eyes - 1989 History of hemorrhoids Z87.19 2015 History of detached retina repair Z98.890, Z86.69 Rt eye - 2003 History of left inguinal hernia repair Z98.890, Z87.19 1989 & 2008 history lesion lip repair 2010 Surgical History: - - Detached retinal repair, left inguinal hernia. Psychiatric History: No pertinent psych hx Lives: Spouse/ Significant Other Smoking Status: Never smoker Tobacco Use: Non-smoker Alcohol: None Drugs: None - *Family History Maternal Family History: Family History (Last Updated 08/24/19 @ 14:44 by Nava Mosley) Mother CAD (coronary artery disease) Heart disease Hypertension Respiratory disease Father Bowel disease Depression Respiratory disease H/O ulcer disease History Items: Heart Disease Paternal Family History: Family History (Last Updated 08/24/19 @ 14:44 by Nava Mosley) Mother CAD (coronary artery disease) Heart disease Hypertension Respiratory disease Father Bowel disease Depression Respiratory disease H/O ulcer disease History Items: Cancer, Heart Disease, Pulmonary Disease Review of Systems Constitutional: Reports: Malaise, Weakness, Fatigue. Denies: Anorexia, Chills, Fever, Weight Change HEENT: Reports: Nasal Congestion, Post Nasal Drip, Sinus Congestion. Denies: Head Aches, Sinus Drainage Cardiovascular: Denies: Chest Pain, Palpitations Respiratory: Reports: Cough, Shortness of Breath, Shortness of breath at rest, Shortness of breath upon exertion, Sputum production Gastrointestinal: Denies: Abdominal Pain, Nausea, Vomiting Genitourinary: Denies: Dysuria Musculoskeletal: Reports: Joint Pain. Denies: Joint Tenderness Skin: Denies: Rash, Wounds Neurological: Denies: Numbness, Tingling, Focal weakness Psychiatric: Denies: Anxiety, Depression, Homicidal Ideations, Suicidal Ideations Hematologic/ Lymphatic: Reports: Anemia, Easy Bruising, Easy Bleeding VTE Information - Inpt Only VTE Present on Admission: No VTE Mechan Device Prophylaxis: SCD's VTE Pharm Prophylaxis ordered?: No Reason prophylaxis not ordered:: Treatment Not Indicated - Continue Xarelto. Patient Problems: Active and Suspected Problems (Last Updated 08/24/19 @ 14:59 by Nava Mosley) Hypoxia (Acute) Dyspnea (Acute) ROSS (acute kidney injury) (Acute) Subjective: Laying in the ED bed, fatigued appearance, notes that has been feeling fatigued and unable to care for himself and needs help he states especially since he has had recent worsened coughing and dyspnea. Objective: Physical Examination: General: awake, alert, oriented x 3 and cooperative, laying on his side in the ED bed, notes he is very fatigued but currently no evidence of distress. Skin: normal color, turgor, no icterus, cyanosis. HEENT: AT/NC, EOMI, PERRLA, moderately dry MM, no carotid bruits or JVD noted; however, habitus makes examination difficult with thickened neck. Lungs: Manage breath sounds, greater bases, moderate effort, no wheezing, rales or rhonchi currently and no illicit cough with examination. Heart: Regular rate and rhythm; no gallop, rub audible. Abdomen: soft, obese, NTTP, ND, normal BS, no HSM; however habitus makes examination difficult. Extremities: no cyanosis, clubbing, bilateral ankle edema, not severe. Neurological: patient awake, alert, oriented x 3; cognitive function intact; pupils equally reactive to light and accomodation; cranial nerves II-XII grossly normal, moving all 4 extremities, no focal deficits, strength moderately to severely global decrease secondary to acute presentation. Psychiatric: affect appears fatigued, no acute evidence of depressive or anxiety feelings. - Physical Exam Vitals/I&O's: Vital Signs Temp Pulse Resp BP Pulse Ox 99.0 F 94 24 H 94/47 L 96 08/28/19 23:19 08/29/19 01:36 08/29/19 01:36 08/29/19 01:36 08/29/19 01:36 Oxygen Flow Rate (L/min) 2 Oxygen Delivery Method Nasal Cannula Weight: 205 lb Body Mass Index (BMI) 27.0 Finger Stick Blood Glucose 86 Laboratory Results 08/28/19 23:54: WBC 13.6 H, RBC 3.79 L, Hgb 12.1 L, Hct 37.5 L, MCV 98.9 H, MCH 31.9, MCHC 32.3, RDW Std Deviation 55.2 H, RDW Coeff of Carlos 15.2 H, Plt Count 223, MPV 9.5, Immature Gran % (Auto) 0.500, Neut % (Auto) 85.2 H, Lymph % (Auto) 8.9 L, [place] % (Auto) 4.2, Eos % (Auto) 1.0, Baso % (Auto) 0.2, Absolute Neuts (auto) 11.5 H, Absolute Lymphs (auto) 1.21, Nucleated RBC % 0 08/28/19 23:54: Sodium 138, Potassium 5.1, Chloride 104, Carbon Dioxide 27.0, Anion Gap 7, BUN 37 H, Creatinine 2.98 H, Estim Creat Clear Calc 29.05, Est GFR (MDRD) Af Amer 28 L, Est GFR (MDRD) Non-Af 23 L, BUN/Creatinine Ratio 12.4, Glucose 93, Calcium 8.3 L, Troponin I 0.031 08/28/19 23:54: B-Natriuretic Peptide 379.9 H Assessment/Plan All Active Problems (Last Updated 08/24/19 @ 14:59 by Nava Mosley) Hypoxia (Acute) Dyspnea (Acute) ROSS (acute kidney injury) (Acute) Elevated troponin (Acute) Chest pain (Acute) The patient is a 64 y/o M w/ PMHx: Obesity, Hx DVT, HTN, HLD, PAF, Liver Cirrhosis/Ascites w/ Hepatitis B, Diastolic CHF, Non-ischemic Cardiomyopathy, ZAID, CKD stage III who was recently admitted 07/21-07/25/19 for severe sepsis secondary to CAP with chest pain with current cardiac enzyme and ROSS on CKD stage III as well as probable acute on chronic diastolic CHF with a negative VQ scan at that time although does have a history of DVT who now re-presents to the [facility] ED on 08/29/19 with history of now recurrent occasionally productive cough and dyspnea, more severe with notable chest discomfort secondary to severity of coughing with rhinorrhea without fevers or chills prompting return to the ED as it has been ongoing for the last couple days. 1. Hypoxia with Dyspnea, Possible Secondary to Possibly Progressive Pulmonary Fibrosis versus Viral Syndrome: Given notable hypoxia in the ED will admit to the medical surgical floor on telemetry, maintain on oxygen with wean as tolerated to room air however will necessitate oxygenation testing prior to discharge to home, obtain respiratory viral panel, obtain sputum culture, continue ATC duonebs, PRN albuterol, HOB, IS parameters, request pulmonary medicine consultation. 2. ROSS on Chronic Kidney Disease Stage III w/ Hypotension, Related to Suspected Overdiuresis: Admission BUN/Cr 37/2.98, baseline renal function 1.5-1.8 prior;however, increased from recent admission given diuresis with 08/10/19 Cr 2.03, will temporarily hold nephrotoxic regimen with repeat BMP in AM. If not improving may obtain FeNa, renal US. 3. Chronic Diastolic CHF: 05/13/19 ECHO w/ mild concentric LVH, EF 60%, moderately enlarged LA, mild MVI, mild TBI, mild focal AV calcification, trivial MVI, trivial TBI, transmitral Doppler flow suggestive of impaired relaxation of left ventricle, lower suspicion of failure, will continue cardiac evaluation as noted #2 and assure that #1 is thoroughly evaluated. Will maintain on xarelto, metoprolol, given ROSS on CKD temporarily holding torsemide and spironolactone w/ gentle hydration given history, add back once improved. 4. PAF: Patient had previously been on Xarelto but discontinued this secondary to frequent epistaxis, recently from current list restarted, will continue, maintain on amiodarone, metoprolol regimen. 5. Hypertension: Continue home regimen including amlodipine, metoprolol, given ROSS on CKD temporarily holding torsemide and spironolactone w/ gentle hydration given history, add back once improved, PRN hydralazine. 6. Hyperlipidemia: Not on statin from current list. 7. Chronically elevated bilirubin, liver function tests w/ Liver Cirrhosis/Chronic ascites w/ Hepatitis B: Recent admission w/ stable liver function tests from prior, obtain CMP in AM. 8. Chronic normocytic anemia: Admission hemoglobin 12.1, baseline 11-12, stable, trend. 9. Obesity: Weight loss and lifestyle changes encouraged, nutrition consulted. 10. Hx Prior DVT: Maintain patient on xarelto. 11. ZAID: BIPAP q HS. 12. DVT prophylaxis: SCDs, heparin. 13. CODE status: Patient with recent admission at which point CODE STATUS was discussed at length as well as healthcare power of flight control specialist and living will. At that time both patient and noted they did not have the set up but had been interested. Patient is here alone today and again discussed his status. He is interesting in continuing DNR-CCA, no intubation status. Advanced Care Planning Face to Face Time: 16 minutes. Code Visit Inpatient E&M: 99588 Init Hosp L3 Procedures: 21958 Advncd Care Plan 30 Min
[2019-08-29] MEDS: 0.9% Normal Saline 1,000 ML 999 ML IV (02:16)
[2019-08-29] MEDS: 0.9% Normal Saline 1,000 ML 100 ML IV (03:41)
[2019-08-29 06:18] LABS: Absolute Lymphocyte Count 0.73 X10^3/uL (0.83-4.51); Absolute Neutrophil Count 9.1 X10^3/uL (2.0-7.7); Hematocrit 30.5 % (40-54); Hemoglobin 9.9 g/dL (13.0-16.5); Lymphocyte # 0.73 X10^3/ul (4.0); Lymphocyte % 6.9 % (19-41); Mean Corp Hgb Conc 32.5 g/dL (32-36); Mean Corpuscular Hgb 31.8 pg (27.0-32.0); Mean Corpuscular Volume 98.1 fL (80-94); Mean Platelet Vol. 10.8 fl (6.2-12.0); Monocyte# 0.72 X10^3/uL; Monocyte% 6.8 % (0-10); NRBC Flagged by Analyzer 0 % (0-5); Neutrophil # 9.09 X10^3/uL (2.7-7.7); Neutrophil % 85.7 % (47-70); POSITIVE MORPHOLOGY YES; Platelet Count 130 K/mm3 (150-450); RBC Distribution Width CV 15.5 % (11.6-14.6); RBC Distribution Width SD 55.4 fl (35.1-43.9); Red Blood Count 3.11 M/mm3 (4.6-6.2); White Blood Count 10.6 K/mm3 (4.4-11.0)
[2019-08-29 06:46] LABS: Differential Indicated SCAN CRITERIA MET
[2019-08-29 06:48] LABS: ALB/GLOB Ratio 0.5 RATIO (0.9-2.4); AST(SGOT) 50 U/L (15-37); Alanine Aminotransfer ALT/SGPT 28 U/L (16-61); Albumin, Serum 2.1 g/dL (3.2-5.0); Alkaline Phosphatase 188 U/L (45-117); Anion Gap 9 (5-15); BUN 36 mg/dL (7-18); BUN/Creat Ratio 12.7 RATIO (10-20); Calcium,Total 7.7 mg/dL (8.5-10.1); Chloride 105 mmol/L (98-107); Creatinine, Serum 2.84 mg/dL (0.70-1.30); EST Glomerular Filtration Rate 24 mL/min (>60); Est Glom Filt Rate - Afr Amer 29 mL/min (>60); Estimated Creatinine Clearance 30.48 ml/min; Globulin 3.9 g/dL (2.2-4.2); Glucose 83 mg/dL (74-106); Potassium 4.2 mmol/L (3.5-5.1); Sodium Level 138 mmol/L (136-145)
[2019-08-29 07:02] LABS: Anisocytosis 1+; Macrocytosis RARE; Ovalocyte RARE; Platelet Estimate SLT DEC (ADEQ); Polychromasia RARE
[2019-08-29 07:03] LABS: Reactive Lymphocyte RARE
--- NOTE | 2019-08-29 07:27 | PCM.CONS.PUL ---
Reason for Consult Date of Consultation: 08/29/19 Reason for Consultation: Dyspnea and hypoxia History of Present Illness: The patient is a 64-year-old male, with a history as outlined below, who presented to the emergency department on August 28 with complaints of shortness of breath. The patient has a history of restrictive lung disease, ZAID with noncompliance with nocturnal Pap therapy, chronic hepatitis B, iron deficiency anemia, cirrhosis, paroxysmal atrial fibrillation status post cardioversion, non-coronary artery disease related cardiomyopathy, chronic kidney disease and history of DVT. The patient was recently admitted to the hospital July 21-, during which time, the patient was treated for suspected community-acquired pneumonia with a treatment course of Levaquin. The patient is already followed in the pulmonary medicine clinic, having last been seen in April 2019. The patient was initially referred to our office in October 2017 for the evaluation of dyspnea. The patient has a known history of obstructive sleep apnea, for which he is noncompliant with the use of nocturnal Pap therapy. Patient is a lifelong non-smoker, but does report significant secondhand smoke exposure, having grown up in a smoking household. 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 Pulmonary function testing completed in August 2018 revealed evidence of a mild restrictive ventilatory impairment with an associated moderate reduction in diffusing capacity. A 6-minute walk test was last completed in September 2018 which revealed no need for exertional supplemental oxygen. At the time of the patient's last office visit in pulmonary medicine clinic in April 2019, the patient noted the presence of a cough, which he stated lead to his inability to utilize nocturnal Pap therapy. He was supposed to follow-up 3 weeks after his last office visit, but failed to do so. On presentation to the emergency department, the patient was noted to be afebrile and hemodynamically stable. Initial laboratory evaluation revealed an elevated white blood cell count of 13,000. Initial hemoglobin was noted to be 12 g/dL. Chemistry profile was notable for acute on chronic kidney disease. Troponin was negative. BNP was elevated to 380. A CT chest without contrast was subsequently obtained and did reveal some mild focal areas of bronchiectasis along with basilar predominance of pleural reticular changes. There was incidental note of cirrhosis, along with splenomegaly with varices. Past Medical History Past Medical History (Chronic Problems): Chronic Problems (Last Updated 08/24/19 @ 14:59 by Nava Mosley) Deafness in left ear (Chronic) Deficiency anemia (Chronic) Sleep apnea (Chronic) Kidney disease, chronic, stage III (moderate, EGFR 30-59 ml/min) (Chronic) Cirrhosis of liver (Chronic) IBS (irritable bowel syndrome) (Chronic) Hypertension (Chronic) Hepatitis B (Chronic) Hearing problem (Chronic) Frequent headaches (Chronic) Back problem (Chronic) Arthritis (Chronic) Iron deficiency anemia (Chronic) Ascites (Chronic) Chronic atrial fibrillation (Chronic) Noncompliant Xarelto Benign essential hypertension (Chronic) CHF (congestive heart failure) (Chronic) VTE (venous thromboembolism) (Chronic) Cardiomyopathy (Chronic) CAD (coronary artery disease) (Chronic) Long-term use of high-risk medication (Chronic) Obesity (BMI 30-39.9) (Chronic) Valvular heart disease (Chronic) Restrictive airway disease (Chronic) HLD (hyperlipidemia) (Chronic) Non-ischemic cardiomyopathy (Chronic) PAF (paroxysmal atrial fibrillation) (Chronic) DCCV in August 2017; Erectile dysfunction (Chronic) Obesity (BMI 30-39.9) (Chronic) ZAID (obstructive sleep apnea) (Chronic) DVT (deep venous thrombosis) (Chronic) Medical History: Medical History (Last Updated 08/24/19 @ 14:59 by Nava Mosley) Deafness in left ear (Chronic) H91.92 Deficiency anemia (Chronic) D53.9 Sleep apnea (Chronic) G47.30 Kidney disease, chronic, stage III (moderate, EGFR 30-59 ml/min) (Chronic) N18.3 Cirrhosis of liver (Chronic) K74.60 IBS (irritable bowel syndrome) (Chronic) K58.9 Hypertension (Chronic) I10 Hepatitis B (Chronic) B19.10 Hearing problem (Chronic) H91.90 Frequent headaches (Chronic) R51 Back problem (Chronic) M53.9 Arthritis (Chronic) M19.90 Non-ischemic cardiomyopathy (Chronic) I42.8 PAF (paroxysmal atrial fibrillation) (Chronic) I48.0 DCCV in August 2017; Erectile dysfunction (Chronic) N52.9 Obesity (BMI 30-39.9) (Chronic) E66.9 ZAID (obstructive sleep apnea) (Chronic) G47.33 DVT (deep venous thrombosis) (Chronic) I82.409 History of cardioversion (Inactive) Onset Date: ~08/2017 Z98.890 Allergies cefuroxime axetil [From Ceftin] Allergy (Verified 08/28/19 23:20) Rash hydrocodone bitartrate [From Vicodin] Allergy (Verified 08/28/19 23:20) Rash Penicillins Allergy (Verified 08/28/19 23:20) Hives DIFFICULTY BREATHING carvedilol [From Coreg] Adverse Reaction (Verified 08/28/19 23:20) black out lisinopril Adverse Reaction (Verified 08/28/19 23:20) cough Home Medications: Ambulatory Orders Medication Instructions Recorded amiodarone 100 mg tablet 100 mg PO DAILY #30 tab 10/12/18 Metoprolol Tartrate [Lopressor 100 mg PO BID 11/03/18 (beta helen)] Potassium Chloride 20 meq PO BID 07/21/19 torsemide 20 mg tablet 20 mg PO BID #60 tab 08/06/19 Rivaroxaban [Xarelto] 20 mg PO QHS 08/09/19 Spironolactone [Aldactone] 50 mg PO BID #60 tab 08/09/19 Famotidine 40 mg PO DAILY 08/28/19 Surgical History: Surgical History (Last Updated 08/24/19 @ 14:42 by Nava Mosley) History of cataract surgery Z98.49 Both eyes - 1989 History of hemorrhoids Z87.19 2014 History of detached retina repair Z98.890, Z86.69 Rt eye - 2003 History of left inguinal hernia repair Z98.890, Z87.19 1989 & 2008 history lesion lip repair 2010 Surgical History: - - Detached retinal repair, left inguinal hernia. Psychiatric History: No pertinent psych hx Lives: Spouse/ Significant Other Smoking Status: Never smoker Tobacco Use: Non-smoker Alcohol: None Drugs: None - *Family History Maternal Family History: Family History (Last Updated 08/24/19 @ 14:44 by Naav Mosley) Mother CAD (coronary artery disease) Heart disease Hypertension Respiratory disease Father Bowel disease Depression Respiratory disease H/O ulcer disease History Items: Heart Disease Paternal Family History: Family History (Last Updated 08/24/19 @ 14:44 by Nava Mosley) Mother CAD (coronary artery disease) Heart disease Hypertension Respiratory disease Father Bowel disease Depression Respiratory disease H/O ulcer disease History Items: Cancer, Heart Disease, Pulmonary Disease Review of Systems Constitutional: Reports: Weight Change. Denies: Chills, Fever Eyes: Denies: Blurred vision, Double vision HEENT: Reports: Post Nasal Drip, Sinus Drainage Cardiovascular: Denies: Chest Pain, Palpitations Respiratory: Reports: Cough, Shortness of Breath Gastrointestinal: Denies: Abdominal Pain, Nausea, Vomiting Genitourinary: Denies: Dysuria Musculoskeletal: Denies: Joint Pain, Joint Tenderness Skin: Denies: Rash, Wounds Neurological: Denies: Numbness, Tingling, Focal weakness Psychiatric: Denies: Anxiety, Depression, Homicidal Ideations, Suicidal Ideations Hematologic/ Lymphatic: Reports: Anemia Patient Problems: Active and Suspected Problems (Last Updated 08/24/19 @ 14:59 by Nava Mosley) Hypoxia (Acute) Dyspnea (Acute) ROSS (acute kidney injury) (Acute) Objective: The patient's most recent lab work, culture data and imaging studies have all been personally reviewed. - Physical Exam Vitals/I&O's: Vital Signs Temp Pulse Resp BP Pulse Ox 99.0 F 89 21 H 96/59 L 97 08/28/19 23:19 08/29/19 04:28 08/29/19 02:20 08/29/19 02:20 08/29/19 02:20 Oxygen Flow Rate (L/min) 2 Oxygen Delivery Method Nasal Cannula Weight: 247 lb 5.738 oz Body Mass Index (BMI) 31.9 Finger Stick Blood Glucose 86 Intake and Output for Last 24 Hours 08/27/19 08/28/19 08/29/19 23:59 23:59 23:59 Intake Total 1120 / 1120 Output Total 0 / 0 Balance 1120 / 1120 General: Alert, Cooperative, No apparent distress HEENT: Atraumatic, PERRLA, Normocephalic Oral: No Gingival or Mucosal Lesions/ Ulcerations Neck: Supple, No Nodes, Trachea Midline Lungs: No rhonchi, No wheeze, No rales, Diminished Cardiovascular: Regular rate, Regular Rhythm, Normal S1, Normal S2 Abdomen: Bowel Sounds Present, Soft, Non Tender, Obese Extremities: No clubbing, No cyanosis, Edema - Trace Skin: No breakdown Musculoskeletal: No Tenderness to Palpation of Joints or Extremities Lymphatic: No Cervical, Supraclavicular, or Inguinal Adenopathy Neurological: Cranial nerves II-XII grossly intact, Neuro grossly intact Psych/Mental Status: Normal Affect, Appropriate Labs (Last 48 Hours) 11/08/28/19 08/28/19 23:54 23:54 23:54 WBC 13.6 H RBC 3.79 L Hgb 12.1 L Hct 37.5 L MCV 98.9 H MCH 31.9 MCHC 32.3 RDW Std Deviation 55.2 H RDW Coeff of Carlos 15.2 H Plt Count 223 MPV 9.5 Immature Gran % (Auto) 0.500 Neut % (Auto) 85.2 H Lymph % (Auto) 8.9 L [place] % (Auto) 4.2 Eos % (Auto) 1.0 Baso % (Auto) 0.2 Absolute Neuts (auto) 11.5 H Absolute Lymphs (auto) 1.21 Nucleated RBC % 0 Reactive Lymphocytes Platelet Estimate Polychromasia Anisocytosis Macrocytosis Ovalocytes Sodium 138 Potassium 5.1 Chloride 104 Carbon Dioxide 27.0 Anion Gap 7 BUN 37 H Creatinine 2.98 H Estim Creat Clear Calc 29.05 Est GFR (MDRD) Af Amer 28 L Est GFR (MDRD) Non-Af 23 L BUN/Creatinine Ratio 12.4 Glucose 93 Calcium 8.3 L Total Bilirubin AST ALT Alkaline Phosphatase Troponin I 0.031 B-Natriuretic Peptide 379.9 H Total Protein Albumin Globulin Albumin/Globulin Ratio 08/29/19 08/29/19 05:15 05:15 WBC 10.6 RBC 3.11 L Hgb 9.9 L Hct 30.5 L MCV 98.1 H MCH 31.8 MCHC 32.5 RDW Std Deviation 55.4 H RDW Coeff of Carlos 15.5 H Plt Count 130 L MPV 10.8 Immature Gran % (Auto) 0.600 Neut % (Auto) 85.7 H Lymph % (Auto) 6.9 L [place] % (Auto) 6.8 Eos % (Auto) 0.0 Baso % (Auto) 0.0 Absolute Neuts (auto) 9.1 H Absolute Lymphs (auto) 0.73 L Nucleated RBC % 0 Reactive Lymphocytes RARE Platelet Estimate SLT DEC Polychromasia RARE Anisocytosis 1+ Macrocytosis RARE Ovalocytes RARE Sodium 138 Potassium 4.2 Chloride 105 Carbon Dioxide 24.0 Anion Gap 9 BUN 36 H Creatinine 2.84 H Estim Creat Clear Calc 30.48 Est GFR (MDRD) Af Amer 29 L Est GFR (MDRD) Non-Af 24 L BUN/Creatinine Ratio 12.7 Glucose 83 Calcium 7.7 L Total Bilirubin 1.50 H AST 50 H ALT 28 Alkaline Phosphatase 188 H Troponin I B-Natriuretic Peptide Total Protein 6.0 L Albumin 2.1 L Globulin 3.9 Albumin/Globulin Ratio 0.5 L Clinical Impression(s) from Imaging Studies Chest X-Ray 08/28/19 23:40 IMPRESSION: Chronic interestitial changes. No radiographic evidence of acute cardiopulmonary disease. at 0016 Reported and signed by: Larry Calvo MD Electronically Signed: Larry Calvo MD at 0:15 EST Tel , Service support , Chest CT 08/29/19 00:40 IMPRESSION: Mild age-related pulmonary fibrosis with otherwise pulmonary hyperexpansion. Coronary artery calcific ASCVD. Probable chronic mild pulmonary hypertension. Cirrhosis. Splenomegaly with varices. Cholelithiasis. Individualized dose optimization techniques were used for this CT. at 0121 Reported and signed by: Larry Calvo MD Electronically Signed: Larry Calvo MD at 1:20 EST Tel , Service support , Current Medications Acetaminophen (Tylenol) 650 mg PO Q6H PRN PRN PRN Reason: Non-cardiac pain (mod-severe) Al Hydroxide/Mg Hydroxide (Mylanta Ii) 15 - 30 ml PO Q4H PRN PRN PRN Reason: INDIGESTION Albuterol Sulfate (Ventolin Aerosols) 2.5 mg INHALATION Q2H PRN PRN PRN Reason: dyspnea, wheezing Albuterol/Ipratropium (Duoneb) 3 ml INHALATION Q4HWA.RT ELISEO Amiodarone HCl (Cordarone) 100 mg PO DAILY ELISEO Dextrose (D50w Syringe) 0 gm IV X1 PRN; Protocol PRN Reason: Hypoglycemia Famotidine (Pepcid) 40 mg PO DAILY ELISEO Glucagon () 1 mg IM .X1 PRN PRN Reason: Hypoglycemia Guaifenesin (Robitussin) 20 ml PO Q4H PRN PRN PRN Reason: COUGH Hydralazine HCl (Apresoline Iv) 10 mg IV Q4H PRN PRN PRN Reason: SBP > 160 Sodium Chloride () 1,000 mls @ 100 mls/hr IV .Q10H [facility] Last Admin: 08/29/19 03:41 Dose: 100 mls/hr Documented by: Sodium Chloride () 250 mls @ 15 mls/hr IV .[id number] PRN PRN Reason: Saline Flush Magnesium Hydroxide (Milk Of Magnesia) 30 ml PO DAILY PRN PRN Reason: Constipation Melatonin (Melatonin) 3 mg PO QHS PRN PRN PRN Reason: INSOMNIA Metoprolol Tartrate (Lopressor (Beta Helen)) 100 mg PO BID [facility] Nitroglycerin (Nitrostat) 0.4 mg SUBLINGUAL Q5M PRN PRN Reason: CARDIAC/CHEST PAIN Ondansetron HCl (Zofran) 4 mg IV Q8H PRN PRN PRN Reason: NAUSEA/VOMITING Rivaroxaban (Xarelto) 15 mg PO QHS [facility] Sodium Chloride () 10 - 40 ml IV UD PRN PRN Reason: SALINE FLUSH Throat Lozenges (Cepacol Sore Throat Lozenge) 1 lozenge MUCOUS MEM Q2H PRN PRN PRN Reason: Sore throat or cough Assessment/Plan All Active Problems (Last Updated 08/24/19 @ 14:59 by Nava Mosley) Hypoxia (Acute) Dyspnea (Acute) ROSS (acute kidney injury) (Acute) Elevated troponin (Acute) Chest pain (Acute) RECOMMENDATIONS: 1. Check blood counts daily and transfuse if hemoglobin is less than 7 g/dL. 2. Outpatient diuretic regimen will eventually need to be restarted. 3. Obtain repeat echocardiogram to evaluate for the presence of pulmonary hypertension. 4. Start Flonase today. 5. Encourage incentive spirometer use and mobilize patient as tolerated. 6. Wean supplemental oxygen to maintain saturations at or above 90%. 7. Orders for BiPAP therapy with naps and nightly has been placed. 8. If anemia worsens, consideration will need to be given to discontinuation of systemic anticoagulation. IMPRESSIONS: 1. Acute hypoxemic respiratory insufficiency/shortness of breath I do suspect that the patient's dyspnea is likely multifactorial in etiology. He does have underlying heart failure with preserved ejection fraction along with presumptive pulmonary hypertension. Prior PFTs only revealed evidence of a mild restrictive ventilatory impairment. His CT chest did not reveal significant fibrotic lung changes. There was subtle subpleural reticular changes along with a few areas of focal bronchiectasis. The patient also carries a history of cirrhosis of the liver with associated ascites. Orders for repeat echocardiogram have been placed. Home diuretic regimen will need to be resumed, pending stability and hemodynamics. In addition to the aforementioned, the patient's hemoglobin was noted to be 9.9 g/dL this morning, previously 12. Recommend checking H&H daily. Transfuse for hemoglobin less than 7 g/dL. 2. Chronic cough While bronchiectasis is a consideration, the patient's cough is essentially nonproductive, and per his account, is more pronounced at night when laying supine. He readily admits to nasal congestion and postnasal drip. Therefore, upper airway cough syndrome precipitated by postnasal drip is a possibility. He is not currently on an AALIYAH inhibitor. An alternative consideration would be for that of uncontrolled GERD. Continue Pepcid per home regimen. We will start the patient on Flonase today. 3. Obstructive sleep apnea The patient has been noncompliant with the use of nocturnal BiPAP therapy in his home environment. Orders for nocturnal Pap therapy with a pressure support of 18/12 centimeters of water has been placed to be utilized with naps and nightly. 4. Chronic hepatitis B/cirrhosis of the liver This is likely a contributing factor to the patient's dyspnea as well. I do strongly suspect that the patient would benefit from establishing a relationship with an outpatient retail shift manager for further management. 5. Paroxysmal atrial fibrillation/hypertension/hyperlipidemia/anemia/obesity/history of DVT Complicates care, management, recovery and prognosis. Continue home Xarelto for now. If blood counts continue to drop, will need to consider discontinuation of systemic anticoagulation. This note was generated with [employer] dictation software. It may contain incorrect words, spelling, and punctuation that were not noted in checking the note before signing. Code Visit Inpatient E&M: 06808 Init Hosp L3
--- NOTE | 2019-08-29 07:41 | ECHOCS_ITS ---
Reason For Study: DYSPNEA/SOB Procedure This was a 2D Doppler, Color Flow transthoracic echocardiogram. The study was technically difficult. Due to body habitus. Contrast injection was performed. Exam performed portable in patient room. Left Ventricle Normal LV size. Left ventricular systolic function is normal. The estimated ejection fraction is 55 %. No regional wall motion abnormalities noted. Right Ventricle Normal RV size. Normal systolic function. Atria The left atrium is moderately enlarged. Normal right atrium. Mitral Valve Mitral valve not well visualized. Tricuspid Valve The tricuspid valve is not well visualized. Mild tricuspid valve insufficiency. Pulmonary artery systolic pressure is 25 mmHg. Aortic Valve The aortic valve is not well visualized. Great Vessels Normal aortic root. The pulmonary artery is normal size. Normal inferior vena cava. Pericardium/Pleural No pericardial effusion. Medication Diluted definity 4.0ml given slow IV push to enhance endocardial definition. MMode/2D Measurements & Calculations LVIDd: 5.0 cm IVSd: 1.5 cm Ao root diam: 3.7 cm LVIDs: 3.9 cm LVPWd: 1.2 cm RVDd: 3.3 cm FS: 21.7 % LAV(MOD-bp): 113.5 ml LA A4 area: 29.2 cm2 LA dimension(2D): 5.0 cm LAV(MOD-bp) Indexed: 47.9 ml/m2 LAV(MOD-sp2): 112.9 ml LAV(MOD-sp4): 109.1 ml RA A4 area: 18.4 cm2 Time Measurements MV dec time: 0.28 sec Doppler Measurements & Calculations MV E max suleiman: 85.8 cm/sec Lat Peak E' Suleiman: 11.1 cm/sec Med Peak E' Suleiman: 5.5 cm/sec MV A max suleiman: 100.5 cm/sec E/E' lat: 7.7 E/E' med: 15.6 MV E/A: 0.85 Ao V2 max: 165.2 cm/sec LV V1 max: 119.2 cm/sec PA V2 max: 100.9 cm/sec Ao max P.9 mmHg LV V1 max P.7 mmHg TR max suleiman: 227.7 cm/sec TR max P.7 mmHg Interpretation Summary Normal LV size. Left ventricular systolic function is normal. The estimated ejection fraction is 55 %. The left atrium is moderately enlarged. Mild tricuspid valve insufficiency. Contrast injection was performed. Ordering Physician: Kieran Diop Referring Physician: Zion Palmer Performed By: Ariana Rollins RDCS, RVT
--- NOTE | 2019-08-29 09:33 | PCM.PN.HOSP ---
Patient Problems: Active and Suspected Problems (Last Updated 08/24/19 @ 14:59 by Nava Mosley) Hypoxia (Acute) Dyspnea (Acute) ROSS (acute kidney injury) (Acute) Subjective: Patient seen and examined. He was admitted with a complaint of cough and shortness of breath. He says he has assisted rhinorrhea and postnasal drip. CT of the chest done on admission showed mild age-related pulmonary fibrosis with otherwise pulmonary hyperexpansion probable cardiac mild pulmonary hypertension. There is also evidence of cirrhosis and splenomegaly with varices. He still complains of mild shortness of breath this morning, he is on 2L of oxygen. He denies any chest pain, palpitations, dizziness, nausea, diarrhea or vomiting. Review of systems is otherwise negative. Vitals/I&O's: Vital Signs Temp Pulse Resp BP Pulse Ox 98.1 F 78 20 H 95/62 97 08/29/19 07:35 08/29/19 07:35 08/29/19 07:35 08/29/19 07:35 08/29/19 07:35 Oxygen Flow Rate (L/min) 2 Oxygen Delivery Method Nasal Cannula Weight: 247 lb 5.738 oz Body Mass Index (BMI) 31.9 Finger Stick Blood Glucose 86 Intake and Output for Last 24 Hours 08/27/19 08/28/19 08/29/19 23:59 23:59 23:59 Intake Total 1120 / 1120 Output Total 0 / 0 Balance 1120 / 1120 General: Alert, Oriented x3, Cooperative, No apparent distress HEENT: Atraumatic, PERRLA, EOMI, Normocephalic Oral: Moist Mucosa Neck: Supple, No JVD, Negative Carotid Bruits Lungs: - - mildly decreased breath sounds bibasally, no wheezes or crackles. on 2L of oxygen Cardiovascular: Regular rate, Regular Rhythm, Normal S1, Normal S2, No murmurs Abdomen: Bowel Sounds Present, Soft, - - mild tenderness over RUQ area, no guarding or rebound tenderness Extremities: No clubbing, No cyanosis, No edema, Capillary Refill Less than 3 Seconds Skin: No rashes, No breakdown Musculoskeletal: No Tenderness to Palpation of Joints or Extremities Lymphatic: No Cervical, Supraclavicular, or Inguinal Adenopathy Neurological: Cranial nerves II-XII grossly intact, Neuro grossly intact, Motor Exam 5/5 strength throughout Psych/Mental Status: Normal Affect, Appropriate, Alert and oriented to time, place, person, mood and affect Laboratory Results 08/28/19 23:54: WBC 13.6 H, RBC 3.79 L, Hgb 12.1 L, Hct 37.5 L, MCV 98.9 H, MCH 31.9, MCHC 32.3, RDW Std Deviation 55.2 H, RDW Coeff of Carlos 15.2 H, Plt Count 223, MPV 9.5, Immature Gran % (Auto) 0.500, Neut % (Auto) 85.2 H, Lymph % (Auto) 8.9 L, [place] % (Auto) 4.2, Eos % (Auto) 1.0, Baso % (Auto) 0.2, Absolute Neuts (auto) 11.5 H, Absolute Lymphs (auto) 1.21, Nucleated RBC % 0 08/28/19 23:54: Sodium 138, Potassium 5.1, Chloride 104, Carbon Dioxide 27.0, Anion Gap 7, BUN 37 H, Creatinine 2.98 H, Estim Creat Clear Calc 29.05, Est GFR (MDRD) Af Amer 28 L, Est GFR (MDRD) Non-Af 23 L, BUN/Creatinine Ratio 12.4, Glucose 93, Calcium 8.3 L, Troponin I 0.031 08/28/19 23:54: B-Natriuretic Peptide 379.9 H 08/29/19 05:15: WBC 10.6, RBC 3.11 L, Hgb 9.9 L, Hct 30.5 L, MCV 98.1 H, MCH 31.8, MCHC 32.5, RDW Std Deviation 55.4 H, RDW Coeff of Carlos 15.5 H, Plt Count 130 L, MPV 10.8, Immature Gran % (Auto) 0.600, Neut % (Auto) 85.7 H, Lymph % (Auto) 6.9 L, [place] % (Auto) 6.8, Eos % (Auto) 0.0, Baso % (Auto) 0.0, Absolute Neuts (auto) 9.1 H, Absolute Lymphs (auto) 0.73 L, Nucleated RBC % 0, Reactive Lymphocytes RARE, Platelet Estimate SLT DEC, Polychromasia RARE, Anisocytosis 1+, Macrocytosis RARE, Ovalocytes RARE 08/29/19 05:15: Sodium 138, Potassium 4.2, Chloride 105, Carbon Dioxide 24.0, Anion Gap 9, BUN 36 H, Creatinine 2.84 H, Estim Creat Clear Calc 30.48, Est GFR (MDRD) Af Amer 29 L, Est GFR (MDRD) Non-Af 24 L, BUN/Creatinine Ratio 12.7, Glucose 83, Calcium 7.7 L, Total Bilirubin 1.50 H, AST 50 H, ALT 28, Alkaline Phosphatase 188 H, Total Protein 6.0 L, Albumin 2.1 L, Globulin 3.9, Albumin/Globulin Ratio 0.5 L Diagnostic Data Chest X-Ray 08/28/19 23:40 IMPRESSION: Chronic interestitial changes. No radiographic evidence of acute cardiopulmonary disease. at 0016 Reported and signed by: Larry Calvo MD Electronically Signed: Larry Calvo MD at 0:15 EST Tel , Service support , Chest CT 08/29/19 00:40 IMPRESSION: Mild age-related pulmonary fibrosis with otherwise pulmonary hyperexpansion. Coronary artery calcific ASCVD. Probable chronic mild pulmonary hypertension. Cirrhosis. Splenomegaly with varices. Cholelithiasis. Individualized dose optimization techniques were used for this CT. at 0121 Reported and signed by: Larry Calvo MD Electronically Signed: Larry Calvo MD at 1:20 EST Tel , Service support , Current Medications Acetaminophen (Tylenol) 650 mg PO Q6H PRN PRN PRN Reason: Non-cardiac pain (mod-severe) Al Hydroxide/Mg Hydroxide (Mylanta Ii) 15 - 30 ml PO Q4H PRN PRN PRN Reason: INDIGESTION Albuterol Sulfate (Ventolin Aerosols) 2.5 mg INHALATION Q2H PRN PRN PRN Reason: dyspnea, wheezing Albuterol/Ipratropium (Duoneb) 3 ml INHALATION Q4HWA.RT [facility] Last Admin: 08/29/19 07:42 Dose: 3 ml Documented by: Amiodarone HCl (Cordarone) 100 mg PO DAILY [facility] Dextrose (D50w Syringe) 0 gm IV X1 PRN; Protocol PRN Reason: Hypoglycemia Famotidine (Pepcid) 40 mg PO DAILY [facility] Glucagon () 1 mg IM .X1 PRN PRN Reason: Hypoglycemia Guaifenesin (Robitussin) 20 ml PO Q4H PRN PRN PRN Reason: COUGH Hydralazine HCl (Apresoline Iv) 10 mg IV Q4H PRN PRN PRN Reason: SBP > 160 Sodium Chloride () 1,000 mls @ 100 mls/hr IV .Q10H [facility] Last Admin: 08/29/19 03:41 Dose: 100 mls/hr Documented by: Sodium Chloride () 250 mls @ 15 mls/hr IV .[id number] PRN PRN Reason: Saline Flush Magnesium Hydroxide (Milk Of Magnesia) 30 ml PO DAILY PRN PRN Reason: Constipation Melatonin (Melatonin) 3 mg PO QHS PRN PRN PRN Reason: INSOMNIA Metoprolol Tartrate (Lopressor (Beta Helen)) 100 mg PO BID [facility] Nitroglycerin (Nitrostat) 0.4 mg SUBLINGUAL Q5M PRN PRN Reason: CARDIAC/CHEST PAIN Nutritional Formula (Lactose Free) (Ensure Enlive) 120 ml PO 4X/DAY [facility] Ondansetron HCl (Zofran) 4 mg IV Q8H PRN PRN PRN Reason: NAUSEA/VOMITING Rivaroxaban (Xarelto) 15 mg PO QHS [facility] Sodium Chloride () 10 - 40 ml IV UD PRN PRN Reason: SALINE FLUSH Throat Lozenges (Cepacol Sore Throat Lozenge) 1 lozenge MUCOUS MEM Q2H PRN PRN PRN Reason: Sore throat or cough STROKE Vital Signs/Narrative: Vital Signs Temp Pulse Resp BP Pulse Ox 08/29/19 07:35 98.1 F 78 20 H 95/62 97 08/29/19 07:25 78 20 H Medical Necessity - Tobacco Use Smoking Status: Never smoker Tobacco Use: Non-smoker Assessment/Plan All Active Problems (Last Updated 08/24/19 @ 14:59 by Nava Mosley) Hypoxia (Acute) Dyspnea (Acute) ROSS (acute kidney injury) (Acute) Elevated troponin (Acute) Chest pain (Acute) 1. Acute hypoxic respiratory insufficiency was hypoxic in the ED and is now on 2L of oxygen discussed with pulmonology, etiology may be due to Upper respiratory cough syndrome with post nasal drip; however, etiology likely multifactorial as he also has heart failuer, adn cirrhosis which could be contributing CT chest showed mild fibrotic lung changes, and subtle reticular subpleural changes with few areas of focal bronchiectasis 2D echo ordered torsemide and spironolactone held on admission. will give a dose of IV lasix and resume torsemide started on flonase incentive spirometer BIPAP qhs and with naps respiratory panel is pending continue breathing treatments 2. Ross on CKD 3 Cr was 2,98 on admission, and is now down to 2.84. baseline is ~ 1.5 will monitor will dc IVF due to elevated BNP, as diuresis will benefit patient. 3. Chronid HFpEF: echo from 05/13/19 showed EF of 60%, with moderately enlarged Left atrium. evidence of imparired relaxation of LV, RVSP could not be asessed. repeat 2D echo ordered. BNP was 379.9 on admission on metoprolol will resume lasix 4. paroxysmal afib: rate controlled. on amioadreone and metoprolol. On xarelto. Does have a history of epistaxis, but xarelto was recently resumed. WIll monitor 5. Hypertension: On metoprolol and amiodarone. Torsemide and spinal lactone held on admission. will resume lasix o/a of elevated BNP 6. History of chronic hepatitis B and cirrhosis also has chronic ascites has been referred to gastroenterology by PCP total bilirubin was 1.5, with AST/ALT of 50/28, and ALP of 118. urged to follow up with gastroenterology CT chest showed vcirrhosis and splenomegaly with varices; patient will therefore benefit from EGD to assess for varices 7. chronic anemia: Hb is 9.9 today. Hb on admission was 12.1, which is around his baseline. Has been on venofer per hematology o/a of anemia. to transfuse if Hb falls to <7 8. History of previous DVT: on xarelto ZAID: on BIPAP DVT prophylaxis. on xarelto Code Visit Inpatient E&M: 78537 Subs Hosp L2
[2019-08-29] MEDS: Famotidine 20 MG Tablet 40 MG PO (10:06)
[2019-08-29] MEDS: Metoprolol Tartrate 100 MG Tablet PO ×2 (10:06→21:40)
[2019-08-29] MEDS: Amiodarone 200 MG Tablet 100 MG PO (10:07)
[2019-08-29] MEDS: Furosemide 40 MG/4 ML Vial IV (10:48)
[2019-08-29] MEDS: Rivaroxaban 15 MG Tablet PO (21:41)
[2019-08-29] MEDS: Furosemide 40 MG Tablet PO (21:44)
--- NOTE | 2019-08-29 23:27 | CPS ---
Titrated pt.'s IPAP/EPAP from 22/09 - 19/05; pt. was refusing to wear BiPAP if pressures weren't reduced
[2019-08-30] VITALS (12 sets, daily range): BP systolic 113–128; BP diastolic 63–86; PULSE 73–85; RESP 12–20; TEMP 36.4–36.8; O2SAT 91–97
[2019-08-30 05:47] LABS: Absolute Lymphocyte Count 1.11 X10^3/uL (0.83-4.51); Absolute Neutrophil Count 3.3 X10^3/uL (2.0-7.7); Basophil# 0.01 X10^3/uL; Basophil% 0.2 % (0-1); Eosinophil# 0.13 X10^3/uL; Eosinophils% 2.5 % (0-5); Hematocrit 30.8 % (40-54); Hemoglobin 9.8 g/dL (13.0-16.5); Lymphocyte # 1.11 X10^3/ul (4.0); Lymphocyte % 21.7 % (19-41); Mean Corp Hgb Conc 31.8 g/dL (32-36); Mean Corpuscular Hgb 31.5 pg (27.0-32.0); Mean Platelet Vol. 9.9 fl (6.2-12.0); Monocyte# 0.52 X10^3/uL; Monocyte% 10.2 % (0-10); NRBC Flagged by Analyzer 0 % (0-5); Neutrophil # 3.32 X10^3/uL (2.7-7.7); Platelet Count 120 K/mm3 (150-450); RBC Distribution Width CV 15.6 % (11.6-14.6); RBC Distribution Width SD 56.3 fl (35.1-43.9); Red Blood Count 3.11 M/mm3 (4.6-6.2); White Blood Count 5.1 K/mm3 (4.4-11.0)
[2019-08-30 06:21] LABS: Anion Gap 7 (5-15); BUN 42 mg/dL (7-18); BUN/Creat Ratio 17.3 RATIO (10-20); Calcium,Total 7.9 mg/dL (8.5-10.1); Chloride 106 mmol/L (98-107); Creatinine, Serum 2.43 mg/dL (0.70-1.30); EST Glomerular Filtration Rate 29 mL/min (>60); Est Glom Filt Rate - Afr Amer 35 mL/min (>60); Estimated Creatinine Clearance 35.62 ml/min; Glucose 113 mg/dL (74-106); Potassium 4.1 mmol/L (3.5-5.1); Sodium Level 139 mmol/L (136-145)
[2019-08-30] MEDS: Ipratropium/Albuterol Sulfate 3 ML AMPUL.NEB INHALATION ×2 (07:13→10:47)
[2019-08-30] MEDS: Amiodarone 200 MG Tablet 100 MG PO (08:31)
[2019-08-30] MEDS: Furosemide 40 MG Tablet PO (08:31)
[2019-08-30] MEDS: Famotidine 20 MG Tablet 40 MG PO (08:31)
[2019-08-30] MEDS: Metoprolol Tartrate 100 MG Tablet PO (08:32)
--- NOTE | 2019-08-30 09:29 | PCM.PN.HOSP ---
Patient Problems: Active and Suspected Problems (Last Updated 08/24/19 @ 14:59 by Nava Mosley) Hypoxia (Acute) Dyspnea (Acute) ROSS (acute kidney injury) (Acute) Subjective: Feels much better, off oxygen Vitals/I&O's: Vital Signs Temp Pulse Resp BP Pulse Ox 98.2 F 74 18 113/63 96 08/30/19 08:23 08/30/19 08:32 08/30/19 08:23 08/30/19 08:23 08/30/19 08:23 Oxygen Flow Rate (L/min) 1 Oxygen Delivery Method Room Air Weight: 251 lb 8.759 oz Body Mass Index (BMI) 31.9 Finger Stick Blood Glucose 86 Intake and Output for Last 24 Hours 08/28/19 08/29/19 08/30/19 23:59 23:59 23:59 Intake Total 2920 / 3320 900 / 900 Output Total 0 / 0 200 / 200 Balance 2920 / 3320 700 / 700 General: Alert, Oriented x3, Cooperative, No apparent distress HEENT: Atraumatic, PERRLA, EOMI, Normocephalic Oral: Moist Mucosa Neck: Supple, No JVD Lungs: Clear to auscultation, Normal air movement, No rhonchi, No wheeze, No rales, Diminished Cardiovascular: Regular rate, Regular Rhythm, Normal S1, Normal S2, No murmurs Abdomen: Soft, Non Tender, Non-Distended, No Hepato-splenomegaly Extremities: No edema, Capillary Refill Less than 3 Seconds Skin: No rashes, No breakdown Neurological: Neuro grossly intact, Sensory exam intact to light touch and pain Psych/Mental Status: Normal Affect, Appropriate Microbiology Past 72 Hours 08/29/19 05:10 Mucosa - Nose Respiratory Panel (PCR) - Final Laboratory Results 08/30/19 05:05: WBC 5.1, RBC 3.11 L, Hgb 9.8 L, Hct 30.8 L, MCV 99.0 H, MCH 31.5, MCHC 31.8 L, RDW Std Deviation 56.3 H, RDW Coeff of Carlos 15.6 H, Plt Count 120 L, MPV 9.9, Immature Gran % (Auto) 0.400, Neut % (Auto) 65.0, Lymph % (Auto) 21.7, [place] % (Auto) 10.2 H, Eos % (Auto) 2.5, Baso % (Auto) 0.2, Absolute Neuts (auto) 3.3, Absolute Lymphs (auto) 1.11, Nucleated RBC % 0 08/30/19 05:05: Sodium 139, Potassium 4.1, Chloride 106, Carbon Dioxide 26.0, Anion Gap 7, BUN 42 H, Creatinine 2.43 H, Estim Creat Clear Calc 35.62, Est GFR (MDRD) Af Amer 35 L, Est GFR (MDRD) Non-Af 29 L, BUN/Creatinine Ratio 17.3, Glucose 113 H, Calcium 7.9 L Current Medications Acetaminophen (Tylenol) 650 mg PO Q6H PRN PRN PRN Reason: Non-cardiac pain (mod-severe) Al Hydroxide/Mg Hydroxide (Mylanta Ii) 15 - 30 ml PO Q4H PRN PRN PRN Reason: INDIGESTION Albuterol Sulfate (Ventolin Aerosols) 2.5 mg INHALATION Q2H PRN PRN PRN Reason: dyspnea, wheezing Albuterol/Ipratropium (Duoneb) 3 ml INHALATION Q4HWA.RT [facility] Last Admin: 08/30/19 07:13 Dose: 3 ml Documented by: Amiodarone HCl (Cordarone) 100 mg PO DAILY [facility] Last Admin: 08/30/19 08:31 Dose: 100 mg Documented by: Dextrose (D50w Syringe) 0 gm IV X1 PRN; Protocol PRN Reason: Hypoglycemia Famotidine (Pepcid) 40 mg PO DAILY [facility] Last Admin: 08/30/19 08:31 Dose: 40 mg Documented by: Fluticasone Propionate (Flonase Nasal [place]) 2 spray NASAL DAILY [facility] Last Admin: 08/29/19 10:07 Dose: Not Given Documented by: Furosemide (Lasix) 40 mg PO BID [facility] Last Admin: 08/30/19 08:31 Dose: 40 mg Documented by: Glucagon () 1 mg IM .X1 PRN PRN Reason: Hypoglycemia Guaifenesin (Robitussin) 20 ml PO Q4H PRN PRN PRN Reason: COUGH Hydralazine HCl (Apresoline Iv) 10 mg IV Q4H PRN PRN PRN Reason: SBP > 160 Sodium Chloride () 250 mls @ 15 mls/hr IV .[id number] PRN PRN Reason: Saline Flush Magnesium Hydroxide (Milk Of Magnesia) 30 ml PO DAILY PRN PRN Reason: Constipation Melatonin (Melatonin) 3 mg PO QHS PRN PRN PRN Reason: INSOMNIA Metoprolol Tartrate (Lopressor (Beta Helen)) 100 mg PO BID [facility] Last Admin: 08/30/19 08:32 Dose: 100 mg Documented by: Nitroglycerin (Nitrostat) 0.4 mg SUBLINGUAL Q5M PRN PRN Reason: CARDIAC/CHEST PAIN Nutritional Formula (Lactose Free) (Ensure Enlive) 120 ml PO 4X/DAY [facility] Last Admin: 08/30/19 08:36 Dose: 120 ml Documented by: Ondansetron HCl (Zofran) 4 mg IV Q8H PRN PRN PRN Reason: NAUSEA/VOMITING Rivaroxaban (Xarelto) 15 mg PO QHS [facility] Last Admin: 08/29/19 21:41 Dose: 15 mg Documented by: Sodium Chloride () 10 - 40 ml IV UD PRN PRN Reason: SALINE FLUSH Throat Lozenges (Cepacol Sore Throat Lozenge) 1 lozenge MUCOUS MEM Q2H PRN PRN PRN Reason: Sore throat or cough STROKE Vital Signs/Narrative: Vital Signs Temp Pulse Resp BP Pulse Ox 08/30/19 08:32 74 08/30/19 08:23 98.2 F 74 18 113/63 96 08/30/19 07:42 80 08/30/19 07:13 79 20 H Medical Necessity - Tobacco Use Smoking Status: Never smoker Tobacco Use: Non-smoker Assessment/Plan All Active Problems (Last Updated 08/24/19 @ 14:59 by Nava Mosley) Hypoxia (Acute) Dyspnea (Acute) ROSS (acute kidney injury) (Acute) Elevated troponin (Acute) Chest pain (Acute) 1. Acute hypoxic respiratory insufficiency/chronic cough/ZAID -Currently off all oxygen satting 96% on room air -Appreciate pulmonology input -Continue with Flonase for postnasal drip -Continue with incentive spirometer 2. ROSS on CKD 3/anemia of chronic disease -Slight creatinine around 2, current creatinine is 2.43 down from 2.98 on admission -Hemoglobin appears to be stabilizing, currently 9.8 -We will continue to monitor, since he is on anticoagulation for his A. fib 3. Chronic hepatitis B/cirrhosis of the liver -Chronic ascites, he is to follow-up with gastroenterology per his PCP -LFTs on admission around baseline -He will need an EGD as an outpatient to follow-up for the varices seen on the CT of his chest 4. A. fib/HTN/HLD/obesity/chronic diastolic CHF -Echo is pending -Continue with Xarelto as well as amiodarone and metoprolol -Need to have close outpatient follow-up -Continue with Lasix right now, can likely resume torsemide and Aldactone on discharge 5. History of DVT -Continue with Xarelto DVT: Xarelto Code Visit Inpatient E&M: 02337 Subs Hosp L2
[2019-08-30] MEDS: Fluticasone 0.05% 1 SPRAY NASAL.SRY 2 SPRAY NASAL (10:40)
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
--- NOTE | 2019-08-30 11:31 | CASEMGMT ---
RN CM Assessment Presentation: Hypoxia secondary to progressive pulmonary fibrosis vs viral. Hx of liver cirrhosis/ascites w/hep B positive, CHF, ZAID, CKD stage III. Intro role of CM and purpose of RN CM assessment. Demographics, PCP and Pharmacy verified. Pt states he is generally independent @ home, does not require any assistance at this time. Uses Bipap and night, but denies oxygen use. PCP: Dr. Palmer Specialists: Dr. Heredia Preferred Pharmacy: [facility] Insurance: [employer] [facility] Prescription Benefit: yes LNOK: Stephie Brandon Living Arrangements: Lives in one story home with WC ramp, walk in shower, raised toilet seat, rails in shower and in bathroom. These modifications are for his who is wheelchair bound. Pt assists her with needs. Pt denies care needs, and states he is independent in all ADL's. Transportation: drives DME: pt uses [employer] (from [employer]) HHC: none Patient DC goals: return home DC PLAN: anticipate return home on dc. Declined needing HHS or care needs. Lindsay KRISHNAMURTHYN RN ACM
--- NOTE | 2019-08-30 15:47 | PCM.DC ---
- Discharge Diagnoses Current Active Problems: Current Active and Chronic Problems (Last Updated 08/30/19 @ 10:37 by Gosia Smith) Hypoxia (Acute) Dyspnea (Acute) ROSS (acute kidney injury) (Acute) You will use the following diet at home:: Calorie/Carbohydrate Controlled (specify 1200, 1400, etc) Your food should be the consistency of: Regular Your liquids should be the consistency of: Regular/Thin Discharge Activity: Return to Normal Activity Call your doctor if you observe: Fever of 101 or Higher, Shortness of breath, Dizziness, Fainting spells, Swelling in the ankles, Chest pain, Increased palpitations (irregular heartbeat) Allergies/Adverse Reactions: Allergies cefuroxime axetil [From Ceftin] Allergy (Verified 08/28/19 23:20) Rash hydrocodone bitartrate [From Vicodin] Allergy (Verified 08/28/19 23:20) Rash Penicillins Allergy (Verified 08/28/19 23:20) Hives DIFFICULTY BREATHING carvedilol [From Coreg] Adverse Reaction (Verified 08/28/19 23:20) black out lisinopril Adverse Reaction (Verified 08/28/19 23:20) cough Medications to take at Discharge amiodarone 100 mg tablet 100 mg PO DAILY #30 tab 10/12/18 Metoprolol Tartrate [Lopressor (beta abram)] 100 mg PO BID 11/03/18 Potassium Chloride 20 meq PO BID 07/21/19 torsemide 20 mg tablet 20 mg PO BID #60 tab 08/06/19 Rivaroxaban [Xarelto] 20 mg PO QHS 08/09/19 Spironolactone [Aldactone] 50 mg PO BID #60 tab 08/09/19 Famotidine 40 mg PO DAILY 08/28/19 Fluticasone 0.05% [Flonase Nasal [place]] 2 spray NASAL DAILY #1 nasal.sry 08/30/19 The following prescriptions were given: Fluticasone 0.05% [Flonase Nasal [place]] 2 spray NASAL DAILY #1 nasal.sry Transmission Status: Pending to [id number] Primary Care Physician: Zion Palmer MD [Primary Care Provider] - Please follow up with your Primary Care Physician in: 3-5 days Test Results: Test results from this visit will be discussed in further detail at your follow-up appointment, if applicable. Please Follow Up With: Gastroenterology - For hep B and cirrhosis When: 3-4 weeks
--- NOTE | 2019-08-30 15:50 | DS.PCM_ITS ---
Discharge Date and Diagnosis - Problem List Patient Problems: Active and Suspected Problems (Last Updated 08/30/19 @ 10:37 by Gosia Smith) Hypoxia (Acute) Dyspnea (Acute) ROSS (acute kidney injury) (Acute) Date of Admission: 08/29/19 Date of Discharge: 08/30/19 - Primary Discharge Diagnosis Active and Suspected Problems (Last Updated 08/30/19 @ 10:37 by Gosia Smith) Hypoxia (Acute) Dyspnea (Acute) ROSS (acute kidney injury) (Acute) - Secondary Discharge Diagnosis Chronic Problems (Last Updated 08/30/19 @ 10:37 by Gosia Smith) Atherosclerotic heart disease of [place] coronary artery without angina pectoris (Chronic) Deafness in left ear (Chronic) Deficiency anemia (Chronic) Sleep apnea (Chronic) Kidney disease, chronic, stage III (moderate, EGFR 30-59 ml/min) (Chronic) Cirrhosis of liver (Chronic) IBS (irritable bowel syndrome) (Chronic) Hypertension (Chronic) Hepatitis B (Chronic) Hearing problem (Chronic) Frequent headaches (Chronic) Back problem (Chronic) Arthritis (Chronic) Iron deficiency anemia (Chronic) Ascites (Chronic) Chronic atrial fibrillation (Chronic) Noncompliant Xarelto Benign essential hypertension (Chronic) CHF (congestive heart failure) (Chronic) VTE (venous thromboembolism) (Chronic) Cardiomyopathy (Chronic) CAD (coronary artery disease) (Chronic) Long-term use of high-risk medication (Chronic) Obesity (BMI 30-39.9) (Chronic) Valvular heart disease (Chronic) Restrictive airway disease (Chronic) HLD (hyperlipidemia) (Chronic) Non-ischemic cardiomyopathy (Chronic) PAF (paroxysmal atrial fibrillation) (Chronic) DCCV in August 2017; Erectile dysfunction (Chronic) Obesity (BMI 30-39.9) (Chronic) ZAID (obstructive sleep apnea) (Chronic) DVT (deep venous thrombosis) (Chronic) Hospital Course and Treatment Imaging Results: CXR IMPRESSION: Chronic interestitial changes. No radiographic evidence of acute cardiopulmonary disease. CT Chest: IMPRESSION: Mild age-related pulmonary fibrosis with otherwise pulmonary hyperexpansion. Coronary artery calcific ASCVD. Probable chronic mild pulmonary hypertension. Cirrhosis. Splenomegaly with varices. Cholelithiasis. Individualized dose optimization techniques were used for this CT. Echo: Interpretation Summary Normal LV size. Left ventricular systolic function is normal. The estimated ejection fraction is 55 %. The left atrium is moderately enlarged. Mild tricuspid valve insufficiency. Contrast injection was performed. Consults: Pulmonology Operations: None Procedures: 2-D Echocardiogram Summary of Care Provided: PEr HPI: The patient is a 64 y/o M w/ PMHx: Obesity, Hx DVT, HTN, HLD, PAF, Liver Cirrhosis/Ascites w/ Hepatitis B, Diastolic CHF, Non-ischemic Cardiomyopathy, ZAID, CKD stage III who was recently admitted 07/21-07/25/19 for severe sepsis secondary to CAP with chest pain with current cardiac enzyme and ROSS on CKD stage III as well as probable acute on chronic diastolic CHF with a negative VQ scan at that time although does have a history of DVT who now re- presents to the [facility] ED on 08/29/19 with history of now recurrent occasionally productive cough and dyspnea, more severe with notable chest discomfort secondary to severity of coughing with rhinorrhea without fevers or chills prompting return to the ED as it has been ongoing for the last couple days. Work-up in the ED included T 99, heart rate 95, BP 150/89, respiratory rate 18, 90% on room air--> repeat BP 94/47, respiratory rate 24, 96% on 2 L nasal cannula, CBC with WC 13.6, hemoglobin 12.1, platelet 223 with left shift, BMP with BUN/creatinine 37/2.98, troponin 0.031, BNP 379.9, chest x-ray with chronic interstitial changes with no acute cardiopulmonary findings, follow-up CT chest with mild age-related pulmonary fibrosis with otherwise pulmonary hyperexpansion, coronary artery calcific ASCVD, probable chronic mild pulmonary hypertension, cirrhosis, splenomegaly with varices, cholelithiasis. In the ED patient ministered DuoNeb therapy. Hospital Course: 1. Acute hypoxic risk for insufficiency/chronic cough/GZE-[id number]-upgv-old male with a history of obesity, HTN, A. fib, cirrhosis with hepatitis B, diastolic CHF presented with productive cough and dyspnea and shortness of breath. He was initially placed on 2 L nasal cannula for oxygen saturation of around 90%, he was off oxygen today during evaluation and he felt much better, back to baseline. Prior to discharge we had an amatory pulse ox and he did not qualify for oxygen, the lowest he decreased was to 91% on room air while ambulating. He was started on Flonase for a postnasal drip and will need to follow-up with his global program manager as an outpatient. Also he is to continue with his CPAP for obstructive sleep apnea. I discussed the plan for discharge with him and he expressed understanding of the risks and benefits of going home. 2. ROSS on CKD 3/anemia of chronic disease-he is currently receiving iron infusions as an outpatient, and he was supposed to have a dose today at 1:00 however he will likely be able to have another dose next week, this was the last iron infusion that he was in the knee. His hemoglobin has stabilized around 9.8. Also his creatinine is down to 2.43 from 2.98, it is very difficult to tell what his baseline creatinine is as he seems to have been all over the place and recently increased in 2019, so it appears that his creatinine is around 2. Continue with anticoagulation for now and monitor him as an outpatient. 3. Chronic hepatitis B/cirrhosis of the liver-it was stressed with him by multiple providers that he needs to follow-up with a settlement technician as an outpatient for his hepatitis B. Also he will need an EGD as an outpatient to evaluate the varices that were seen on the CT scan. 4. A. fib/HTN/HLD/chronic diastolic CHF/obesity-lifestyle modifications were discussed for his weight. He had an echo today which was normal with an EF of 55%, his left atrium is moderately large explaining his A. fib. No changes were made to his home medications. 5. His other medical diagnoses were evaluated and his home medications were continued where appropriate. Patient Problems: Active and Suspected Problems (Last Updated 08/30/19 @ 10:37 by Gosia Smith) Hypoxia (Acute) Dyspnea (Acute) ROSS (acute kidney injury) (Acute) - Physical Exam Vitals/I&O's: Vital Signs Temp Pulse Resp BP Pulse Ox 97.5 F L 76 18 115/78 96 08/30/19 14:20 08/30/19 14:20 08/30/19 14:20 08/30/19 14:20 08/30/19 14:33 Oxygen Flow Rate (L/min) 1 Oxygen Delivery Method Room Air Weight: 251 lb 8.759 oz Body Mass Index (BMI) 31.9 Finger Stick Blood Glucose 86 Intake and Output for Last 24 Hours 08/28/19 08/29/19 08/30/19 23:59 23:59 23:59 Intake Total 2920 / 3320 1260 / 1260 Output Total 0 / 0 200 / 200 Balance 2920 / 3320 1060 / 1060 Microbiology Past 72 Hours 08/29/19 05:10 Mucosa - Nose Respiratory Panel (PCR) - Final Laboratory Results 08/30/19 05:05: WBC 5.1, RBC 3.11 L, Hgb 9.8 L, Hct 30.8 L, MCV 99.0 H, MCH 31.5, MCHC 31.8 L, RDW Std Deviation 56.3 H, RDW Coeff of Carlos 15.6 H, Plt Count 120 L, MPV 9.9, Immature Gran % (Auto) 0.400, Neut % (Auto) 65.0, Lymph % (Auto) 21.7, Lea % (Auto) 10.2 H, Eos % (Auto) 2.5, Baso % (Auto) 0.2, Absolute Neuts (auto) 3.3, Absolute Lymphs (auto) 1.11, Nucleated RBC % 0 08/30/19 05:05: Sodium 139, Potassium 4.1, Chloride 106, Carbon Dioxide 26.0, Anion Gap 7, BUN 42 H, Creatinine 2.43 H, Estim Creat Clear Calc 35.62, Est GFR (MDRD) Af Amer 35 L, Est GFR (MDRD) Non-Af 29 L, BUN/Creatinine Ratio 17.3, Glucose 113 H, Calcium 7.9 L Current Medications Acetaminophen (Tylenol) 650 mg PO Q6H PRN PRN PRN Reason: Non-cardiac pain (mod-severe) Al Hydroxide/Mg Hydroxide (Mylanta Ii) 15 - 30 ml PO Q4H PRN PRN PRN Reason: INDIGESTION Albuterol Sulfate (Ventolin Aerosols) 2.5 mg INHALATION Q2H PRN PRN PRN Reason: dyspnea, wheezing Albuterol/Ipratropium (Duoneb) 3 ml INHALATION Q4HWA.RT [facility] Last Admin: 08/30/19 15:13 Dose: Not Given Documented by: Amiodarone HCl (Cordarone) 100 mg PO DAILY [facility] Last Admin: 08/30/19 08:31 Dose: 100 mg Documented by: Dextrose (D50w Syringe) 0 gm IV X1 PRN; Protocol PRN Reason: Hypoglycemia Famotidine (Pepcid) 40 mg PO DAILY [facility] Last Admin: 08/30/19 08:31 Dose: 40 mg Documented by: Fluticasone Propionate (Flonase Nasal [place]) 2 spray NASAL DAILY [facility] Last Admin: 08/30/19 10:40 Dose: 2 spray Documented by: Furosemide (Lasix) 40 mg PO BID [facility] Last Admin: 08/30/19 08:31 Dose: 40 mg Documented by: Glucagon () 1 mg IM .X1 PRN PRN Reason: Hypoglycemia Guaifenesin (Robitussin) 20 ml PO Q4H PRN PRN PRN Reason: COUGH Hydralazine HCl (Apresoline Iv) 10 mg IV Q4H PRN PRN PRN Reason: SBP > 160 Sodium Chloride () 250 mls @ 15 mls/hr IV .[id number] PRN PRN Reason: Saline Flush Magnesium Hydroxide (Milk Of Magnesia) 30 ml PO DAILY PRN PRN Reason: Constipation Melatonin (Melatonin) 3 mg PO QHS PRN PRN PRN Reason: INSOMNIA Metoprolol Tartrate (Lopressor (Beta [place])) 100 mg PO BID [facility] Last Admin: 08/30/19 08:32 Dose: 100 mg Documented by: Nitroglycerin (Nitrostat) 0.4 mg SUBLINGUAL Q5M PRN PRN Reason: CARDIAC/CHEST PAIN Nutritional Formula (Lactose Free) (Ensure Enlive) 120 ml PO 4X/DAY [facility] Last Admin: 08/30/19 13:02 Dose: 120 ml Documented by: Ondansetron HCl (Zofran) 4 mg IV Q8H PRN PRN PRN Reason: NAUSEA/VOMITING Rivaroxaban (Xarelto) 15 mg PO QHS [facility] Last Admin: 08/29/19 21:41 Dose: 15 mg Documented by: Sodium Chloride () 10 - 40 ml IV UD PRN PRN Reason: SALINE FLUSH Throat Lozenges (Cepacol Sore Throat Lozenge) 1 lozenge MUCOUS MEM Q2H PRN PRN PRN Reason: Sore throat or cough Discharge Activity: Return to Normal Activity Call your doctor if you observe: Fever of 101 or Higher, Shortness of breath, Dizziness, Fainting spells, Swelling in the ankles, Chest pain, Increased palpitations (irregular heartbeat) Home Medications: Medications to take at Discharge amiodarone 100 mg tablet 100 mg PO DAILY #30 tab 10/12/18 Metoprolol Tartrate [Lopressor (beta helen)] 100 mg PO BID 11/03/18 Potassium Chloride 20 meq PO BID 07/21/19 torsemide 20 mg tablet 20 mg PO BID #60 tab 08/06/19 Rivaroxaban [Xarelto] 20 mg PO QHS 08/09/19 Spironolactone [Aldactone] 50 mg PO BID #60 tab 08/09/19 Famotidine 40 mg PO DAILY 08/28/19 Fluticasone 0.05% [Flonase Nasal [place]] 2 spray NASAL DAILY #1 nasal.sry 08/30/19 Following Prescrptions Were Given to Patient: Fluticasone 0.05% [Flonase Nasal [place]] 2 spray NASAL DAILY #1 nasal.sry Transmission Status: Received by [id number] Primary Care Physician: Zion Palmer MD [Primary Care Provider] - Please follow up with your Primary Care Physician in: 3-5 days Please Follow Up With: Gastroenterology - For hep B and cirrhosis When: 3-4 weeks Disposition: Home Minutes spent on discharge:: 35 Patient Condition:: Stable Medical Necessity - Tobacco Use Smoking Status: Never smoker Tobacco Use: Non-smoker Meaningful Use Info Meaningful Use Diagnoses (Choose all that apply): None applicable Code Visit Inpatient E&M: 16618 Disch Hosp
--- NOTE | 2019-08-31 13:22 | CASEMGMT ---
Addendum entered by Santosh Daley 08/31/19 13:35: Pt returned call to [facility]. Intro role of CM to patient. Pt denies any questions re: prescriptions, f/u or instructions. No care improvement suggestions were given. Lindsay PRO RN NOEMIM Original Note: RN CM DC PHONE CALL DC DATE: 08.30.19 DC Disposition: Home Diagnosis on Discharge: Hypoxia, Dyspnea LACE/STRATA: 10 Attempted call to pt's phone. No answer and no message machine picked up. Lindsay PRO RN ACM
== END 2019-08-30 16:50 | disposition home or self-care (01) | DRG 144 ==
LOC: ED 08-29 01:39 → MS3 08-29 03:29
PROVIDERS: Student in an Organized Health Care Education/Training Program; Admitting Provider Family Medicine; Emergency Provider Emergency Medicine; Family Provider Internal Medicine; PCP Internal Medicine; Referring Provider Family Medicine; Visit Provider Family Medicine
DX: R09.02 Hypoxemia (principal); N17.9 Acute kidney failure, unspecified; N18.3 Chronic kidney disease, stage 3 (moderate); I50.32 Chronic diastolic (congestive) heart failure; R06.00 Dyspnea, unspecified; I48.0 Paroxysmal atrial fibrillation; E66.9 Obesity, unspecified; G47.33 Obstructive sleep apnea (adult) (pediatric); R06.89 Other abnormalities of breathing; I13.0 Hypertensive heart and chronic kidney disease with heart failure and stage 1 through stage 4 chronic kidney disease, or unspecified chronic kidney disease; R18.8 Other ascites; K74.60 Unspecified cirrhosis of liver; B18.1 Chronic viral hepatitis B without delta-agent; D63.8 Anemia in other chronic diseases classified elsewhere; I25.10 Atherosclerotic heart disease of native coronary artery without angina pectoris; H91.92 Unspecified hearing loss, left ear; K58.9 Irritable bowel syndrome, unspecified; M19.90 Unspecified osteoarthritis, unspecified site; I42.8 Other cardiomyopathies; D50.9 Iron deficiency anemia, unspecified; E78.5 Hyperlipidemia, unspecified; Z68.31 Body mass index [BMI] 31.0-31.9, adult; Z91.19 Patient's noncompliance with other medical treatment and regimen; Z79.899 Other long term (current) drug therapy; Z86.718 Personal history of other venous thrombosis and embolism; Z79.01 Long term (current) use of anticoagulants
CPT/HCPCS: 36415; 71045; 71250; 80048; 80053; 83880; 84484; 85025; 87633; 93005; 93306; 94002; 94003; 94640; 97116; 97162; 97166; 97530; 97802; 99251; 99285; J1756; J7030; Q9957; A4216; C8929; G0463; J1940

== ENCOUNTER → 2019-09-10 08:01 | Outpatient (CLI) | payer MEDICAID, SELFPAY ==
[2019-09-08 13:39] VITALS: BMI 33.0
[2019-09-10 12:09] LABS: Absolute Lymphocyte Count 1.73 X10^3/uL (0.83-4.51); Absolute Neutrophil Count 3.4 X10^3/uL (2.0-7.7); Basophil# 0.03 X10^3/uL; Basophil% 0.5 % (0-1); Eosinophil# 0.17 X10^3/uL; Eosinophils% 2.9 % (0-5); Hematocrit 41.2 % (40-54); Hemoglobin 13.3 g/dL (13.0-16.5); Lymphocyte # 1.73 X10^3/ul (4.0); Lymphocyte % 29.2 % (19-41); Mean Corp Hgb Conc 32.3 g/dL (32-36); Mean Corpuscular Hgb 32.4 pg (27.0-32.0); Mean Corpuscular Volume 100.5 fL (80-94); Mean Platelet Vol. 10.5 fl (6.2-12.0); Monocyte# 0.56 X10^3/uL; Monocyte% 9.5 % (0-10); NRBC Flagged by Analyzer 0 % (0-5); Neutrophil % 57.4 % (47-70); Platelet Count 201 K/mm3 (150-450); RBC Distribution Width CV 15.5 % (11.6-14.6); RBC Distribution Width SD 57.3 fl (35.1-43.9); White Blood Count 5.9 K/mm3 (4.4-11.0)
[2019-09-10 12:23] LABS: ALB/GLOB Ratio 0.6 RATIO (0.9-2.4); AST(SGOT) 56 U/L (15-37); Alanine Aminotransfer ALT/SGPT 46 U/L (16-61); Albumin, Serum 2.8 g/dL (3.2-5.0); Alkaline Phosphatase 244 U/L (45-117); Anion Gap 7 (5-15); BUN 34 mg/dL (7-18); BUN/Creat Ratio 11.5 RATIO (10-20); Calcium,Total 8.6 mg/dL (8.5-10.1); Chloride 105 mmol/L (98-107); Creatinine, Serum 2.95 mg/dL (0.70-1.30); EST Glomerular Filtration Rate 23 mL/min (>60); Est Glom Filt Rate - Afr Amer 28 mL/min (>60); Globulin 4.7 g/dL (2.2-4.2); Glucose 111 mg/dL (74-106); Potassium 5.6 mmol/L (3.5-5.1); Protein, Total 7.5 g/dL (6.4-8.2); Sodium Level 137 mmol/L (136-145)
--- NOTE | 2019-09-10 14:00 | PFT ---
INTRODUCTION: The patient is a 64-year-old male who presents for pulmonary function studies secondary to a diagnosis of longtime drug usage. Respiratory therapy reports good patient effort. Bronchodilators were used during testing. INTERPRETATION: Forced expiration spirometry demonstrates no evidence of a large airways obstructive ventilatory defect. There was no significant response to aerosolized bronchodilators. Spirograms are of good quality and plateau normally. Body plethysmography was performed and reveals a decrease TLC to 6.18 L, 84% of predicted, indicative of a mild restrictive ventilatory impairment. The remainder of the lung volumes are symmetrically reduced. Diffusing capacity by single breath CO is moderately reduced at 55% of predicted. IMPRESSION: Isolated mild restrictive ventilatory impairment with moderate reduction in diffusing capacity.
== END ==
PROVIDERS: Family Provider Internal Medicine; PCP Internal Medicine; Referring Provider Internal Medicine Cardiovascular Disease; Visit Provider Internal Medicine Cardiovascular Disease
DX: K74.60 Unspecified cirrhosis of liver (principal); Z79.899 Other long term (current) drug therapy
CPT/HCPCS: 36415; 80053; 85025; 94060; 94726; 94729

== ENCOUNTER → 2019-09-24 13:35 | Outpatient (CLI) | payer MEDICAID, SELFPAY ==
[2019-09-22 14:27] VITALS: BMI 32.3
[2019-09-24 14:46] LABS: Anion Gap 4 (5-15); BUN 37 mg/dL (7-18); BUN/Creat Ratio 13.2 RATIO (10-20); Calcium,Total 8.6 mg/dL (8.5-10.1); Chloride 103 mmol/L (98-107); EST Glomerular Filtration Rate 25 mL/min (>60); Est Glom Filt Rate - Afr Amer 30 mL/min (>60); Glucose 90 mg/dL (74-106); Potassium 4.4 mmol/L (3.5-5.1); Sodium Level 137 mmol/L (136-145)
== END ==
PROVIDERS: Family Provider Internal Medicine; PCP Internal Medicine; Referring Provider Internal Medicine; Visit Provider Internal Medicine
DX: I10 Essential (primary) hypertension (principal)
CPT/HCPCS: 36415; 80048

== ENCOUNTER → 2019-10-18 12:18 | Outpatient (CLI) | payer MEDICAID, SELFPAY ==
[2019-07-22 00:16] VITALS: BMI 36.2
[2019-09-22 14:27] VITALS: BMI 32.3
[2019-10-18 12:41] LABS: Hematocrit 39.4 % (40-54); Mean Corpuscular Hgb 31.9 pg (27.0-32.0); Mean Corpuscular Volume 96.8 fL (80-94); Mean Platelet Vol. 10.3 fl (6.2-12.0); Platelet Count 139 K/mm3 (150-450); RBC Distribution Width CV 14.5 % (11.6-14.6); RBC Distribution Width SD 51.7 fl (35.1-43.9); Red Blood Count 4.07 M/mm3 (4.6-6.2); White Blood Count 3.9 K/mm3 (4.4-11.0)
[2019-10-18 13:02] LABS: Albumin, Serum 2.7 g/dL (3.2-5.0); BUN 34 mg/dL (7-18); BUN/Creat Ratio 12.2 RATIO (10-20); Calcium,Total 8.3 mg/dL (8.5-10.1); Chloride 105 mmol/L (98-107); Creatinine, Serum 2.78 mg/dL (0.70-1.30); EST Glomerular Filtration Rate 25 mL/min (>60); Est Glom Filt Rate - Afr Amer 30 mL/min (>60); Glucose 110 mg/dL (74-106); Phosphorus 3.7 mg/dL (2.5-4.9); Potassium 5.1 mmol/L (3.5-5.1); Sodium Level 135 mmol/L (136-145)
[2019-10-18 13:14] LABS: PTHIN 268.8 pg/mL (18.4-80.1)
== END ==
PROVIDERS: Family Provider Internal Medicine; PCP Internal Medicine; Referring Provider Internal Medicine Nephrology; Visit Provider Internal Medicine Nephrology
DX: N18.3 Chronic kidney disease, stage 3 (moderate) (principal); D50.9 Iron deficiency anemia, unspecified
CPT/HCPCS: 36415; 80069; 83970; 85027

== ENCOUNTER → 2019-12-27 | Outpatient (CLI) | payer MEDICAID, SELFPAY ==
[2019-12-15 11:34] VITALS: BMI 34.2
[2019-12-27 15:07] LABS: Absolute Lymphocyte Count 1.78 X10^3/uL (0.83-4.51); Absolute Neutrophil Count 1.9 X10^3/uL (2.0-7.7); Basophil# 0.02 X10^3/uL; Basophil% 0.5 % (0-1); Eosinophil# 0.16 X10^3/uL; Eosinophils% 3.7 % (0-5); Hematocrit 38.8 % (40-54); Hemoglobin 12.7 g/dL (13.0-16.5); Lymphocyte # 1.78 X10^3/ul (4.0); Lymphocyte % 40.6 % (19-41); Mean Corp Hgb Conc 32.7 g/dL (32-36); Mean Corpuscular Hgb 32.5 pg (27.0-32.0); Mean Corpuscular Volume 99.2 fL (80-94); Mean Platelet Vol. 10.5 fl (6.2-12.0); Monocyte# 0.49 X10^3/uL; Monocyte% 11.2 % (0-10); NRBC Flagged by Analyzer 0 % (0-5); Neutrophil # 1.92 X10^3/uL (2.7-7.7); Neutrophil % 43.8 % (47-70); Platelet Count 135 K/mm3 (150-450); RBC Distribution Width CV 14.2 % (11.6-14.6); RBC Distribution Width SD 52.1 fl (35.1-43.9); Red Blood Count 3.91 M/mm3 (4.6-6.2); White Blood Count 4.4 K/mm3 (4.4-11.0)
[2019-12-27 15:35] LABS: Anion Gap 7 (5-15); BUN 30 mg/dL (7-18); BUN/Creat Ratio 15.5 RATIO (10-20); Calcium,Total 8.3 mg/dL (8.5-10.1); Chloride 102 mmol/L (98-107); Creatinine, Serum 1.93 mg/dL (0.70-1.30); EST Glomerular Filtration Rate 38 mL/min (>60); Est Glom Filt Rate - Afr Amer 46 mL/min (>60); Glucose 88 mg/dL (74-106); Potassium 4.3 mmol/L (3.5-5.1); Sodium Level 136 mmol/L (136-145)
== END | disposition home or self-care (01) ==
PROVIDERS: PCP Internal Medicine; Referring Provider Physician Assistant Medical; Visit Provider Physician Assistant Medical
DX: I11.0 Hypertensive heart disease with heart failure (principal); I50.32 Chronic diastolic (congestive) heart failure; I25.10 Atherosclerotic heart disease of native coronary artery without angina pectoris
CPT/HCPCS: 36415; 80048; 85025

== ENCOUNTER → 2020-08-10 11:18 | Outpatient (CLI) | payer MEDICAID, SELFPAY ==
[2020-01-17 15:21] VITALS: BMI 33.1
[2020-05-01 13:48] VITALS: BMI 33.1
[2020-08-10 12:06] LABS: Albumin, Serum 2.6 g/dL (3.2-5.0); BUN 30 mg/dL (7-18); BUN/Creat Ratio 13.5 RATIO (10-20); Calcium,Total 8.2 mg/dL (8.5-10.1); Chloride 107 mmol/L (98-107); Creatinine, Serum 2.23 mg/dL (0.70-1.30); EST Glomerular Filtration Rate 32 mL/min (>60); Est Glom Filt Rate - Afr Amer 39 mL/min (>60); Glucose 101 mg/dL (74-106); Phosphorus 3.7 mg/dL (2.5-4.9); Potassium 4.6 mmol/L (3.5-5.1); Sodium Level 139 mmol/L (136-145)
[2020-08-10 13:37] LABS: PTHIN 257.8 pg/mL (18.4-80.1)
[2020-08-10 13:57] LABS: Vitamin D,25 Hydroxy 21.7 ng/mL
== END ==
PROVIDERS: PCP Student in an Organized Health Care Education/Training Program; Referring Provider Internal Medicine Nephrology; Visit Provider Internal Medicine Nephrology
DX: N18.30 Chronic kidney disease, stage 3 unspecified (principal); N25.81 Secondary hyperparathyroidism of renal origin
CPT/HCPCS: 36415; 80069; 82306; 83970

== ENCOUNTER 2020-08-21 13:54 | Emergency (ER) | payer MEDICAID, SELFPAY ==
[2020-05-01 13:48] VITALS: BMI 33.1
[2020-08-21] VITALS (8 sets, daily range): BP systolic 138–153; BP diastolic 70–81; PULSE 64–74; RESP 17–28; TEMP 36.6–37.3; O2SAT 93–96; BMI 37.7
--- NOTE | 2020-08-21 15:00 | RAD_ITS ---
STUDY: X-RAY CHEST REASON FOR EXAM: Male, 65 years old. COUGH, SOB, FEVER, CHILLS, LOSS OF TASTE, DIARRHEA, AND FATIGUE FOR A WEEK TECHNIQUE: Single AP portable view of the chest. COMPARISON: Comparison is made with prior study dated 08/28/2019. FINDINGS: Mild elevation of the right hemidiaphragm. This is stable. Mild increased interstitial markings with areas of confluence at the lung bases suggestive of scarring. No definite infiltrate is seen. There is no demonstrated pleural abnormality. There is borderline cardiomegaly. Normal mediastinum and annamarie. Normal visualized pulmonary arteries. There is atherosclerotic tortuosity of the aortic arch and descending thoracic aorta. There are degenerative changes of the visualized thoracic spine. Normal visualized ribs, clavicles, and shoulders. There is no demonstrated abnormality of the visualized soft tissue structures of the upper abdomen. RAD/Chest 1 View (Portable) IMPRESSION: There is evidence of increased interstitial markings at the lung bases with areas of confluence more prominent at the lung bases suggestive of bibasilar pulmonary scarring. Electronically Signed: Duke Duran, at 15:22 EST , Service support ,
[2020-08-21 15:27] LABS: Absolute Lymphocyte Count 1.67 X10^3/uL (0.83-4.51); Absolute Neutrophil Count 1.9 X10^3/uL (2.0-7.7); Basophil# 0.01 X10^3/uL; Basophil% 0.2 % (0-1); Eosinophil# 0.02 X10^3/uL; Eosinophils% 0.5 % (0-5); Hematocrit 41.3 % (40-54); Hemoglobin 13.3 g/dL (13.0-16.5); Lymphocyte # 1.67 X10^3/ul (4.0); Mean Corp Hgb Conc 32.2 g/dL (32-36); Mean Corpuscular Hgb 33.2 pg (27.0-32.0); Mean Platelet Vol. 11.1 fl (6.2-12.0); Monocyte% 14.4 % (0-10); NRBC Flagged by Analyzer 0 % (0-5); Neutrophil # 1.85 X10^3/uL (2.7-7.7); Neutrophil % 44.4 % (47-70); POSITIVE COUNT YES; Platelet Count 96 K/mm3 (150-450); RBC Distribution Width CV 13.8 % (11.6-14.6); RBC Distribution Width SD 53.3 fl (35.1-43.9); Red Blood Count 4.01 M/mm3 (4.6-6.2); White Blood Count 4.2 K/mm3 (4.4-11.0)
[2020-08-21 15:31] LABS: Differential Indicated SCAN CRITERIA MET
[2020-08-21 15:33] LABS: Anion Gap 6 (5-15); BUN 27 mg/dL (7-18); BUN/Creat Ratio 12.7 RATIO (10-20); Calcium,Total 8.1 mg/dL (8.5-10.1); Chloride 104 mmol/L (98-107); Creatinine, Serum 2.12 mg/dL (0.70-1.30); EST Glomerular Filtration Rate 34 mL/min (>60); Est Glom Filt Rate - Afr Amer 41 mL/min (>60); Estimated Creatinine Clearance 39.15 ml/min; Glucose 83 mg/dL (74-106); Potassium 4.1 mmol/L (3.5-5.1); Sodium Level 136 mmol/L (136-145)
--- NOTE | 2020-08-21 16:07 | ED.VISSUMM ---
- ER Visit Summary Date of Service: 08/21/20 Chief Complaint: Cough History of Present Illness: The patient is a [address] Mahamed Gonzalez. He reports that he has a cough that began approximately a week ago. Is productive clear sputum without blood. He questions whether or not he may been exposed to coronavirus. He reports he is only been wearing a mask since getting sick. Patient reports he is had a fever of 100.3 degrees and chills. He reports he has chest pain with coughing only. He reports he has moderate shortness of breath it is increased with walking or coughing. He reports has been nausea and vomited 2 days ago. Not since. Reports diarrhea 8 times a day for the past week. He denies any blood in his stools. Does complain of generalized weakness and poor appetite. Physical Examination: Vitals: Stable. Afebrile. General: Well-nourished and well-developed. Head: Normocephalic atraumatic. Neck: Supple, no lymphadenopathy. No JVD. Nontender. Cardiovascular: Regular rate and rhythm. No murmurs. Respiratory: No respiratory distress. Clear to auscultation bilaterally. Abdominal: Soft, nontender, nondistended, normal bowel sounds. No guarding, rebound, or peritoneal signs. Back: Nontender. Extremities: Nontender, no edema. Skin: Normal color, no rash. Neurologic: Alert and oriented ?3. Cranial nerves II through XII are intact. Normal strength and sensation. Psych: Normal affect. Test Results: CBC shows white count of 4.2, platelets 96, segs neutrophils 44, monocytes of 14. This is not significantly changed from the remainder of this year. Chem-7 shows a BUN of 27 creatinine 2.12. His calcium is 8.1. Again this is not significantly changed from the remainder of this year. COVID-19 is pending. Chest x-ray shows pulmonary fibrosis and no acute disease. Emergency Department Course and Treatment: Amatory pulse ox is 91%. Patient feels well and would like to go home. He does understand that he may have COVID-19. Treatment Plan: Patient is instructed to quarantine until his symptoms are improved. He does understand that even if his COVID-19 test is negative that this may be a false negative. Follow-up his primary care physician in 10 to 14 days if not improving. Return to the emergency department for any worsening symptoms. Disposition: To home in improved and stable condition. Impression: 1. URI, possible COVID-19 infection. 2. Chronic renal insufficiency. 3. Chronic thrombocytopenia. This note was generated with mySchoolNote[employer] dictation software. It may contain incorrect words, spelling, and punctuation that were not noted in review of the chart prior to signing ED Disposition - Plan for ED Patient: Disposition: Home or Assisted Living Instructions: ED Upper Resp Infec No Abx Tx Referrals: Donnie Vo DO [Primary Care Provider] - 10-14 Days if not better
[2020-08-21 16:10] LABS: Platelet Estimate SLT DEC (ADEQ); Red Cell Morphology NORM C+C NORMAL (NORM C&C)
== END 2020-08-21 18:27 | disposition home or self-care (01) ==
PROVIDERS: Emergency Provider Emergency Medicine; PCP Student in an Organized Health Care Education/Training Program
DX: U07.1 COVID-19 (principal); J06.9 Acute upper respiratory infection, unspecified; D69.6 Thrombocytopenia, unspecified; I50.9 Heart failure, unspecified; I13.0 Hypertensive heart and chronic kidney disease with heart failure and stage 1 through stage 4 chronic kidney disease, or unspecified chronic kidney disease; N18.9 Chronic kidney disease, unspecified; K21.9 Gastro-esophageal reflux disease without esophagitis; Z79.899 Other long term (current) drug therapy
CPT/HCPCS: 71045; 80048; 85025; 87635; 99283; A4216; U0003

== ENCOUNTER 2020-09-28 16:09 | Emergency (ER) | payer MEDICAID, SELFPAY ==
[2020-08-21 13:57] VITALS: BMI 37.7
[2020-09-28 16:10] VITALS: BP 162/69; PULSE 61; RESP 15; TEMP 36; O2SAT 97; BMI 35.9
--- NOTE | 2020-09-28 16:28 | CT_ITS ---
STUDY: CT ABDOMEN AND PELVIS WITHOUT CONTRAST REASON FOR EXAM: Male, 65 years old. FELL OFF RUNNING BOARD OF TRUCK/BACK AND RIB PAIN RADIATION DOSAGE (If Supplied By Facility): CTDIvol = ( 23.86 ) mGy, DLP = ( 1371.34 ) mGycm TECHNIQUE: Transaxial images were obtained from the dome of the diaphragm to the symphysis pubis without oral contrast, and without intravenous contrast. Sagittal and coronal images were reconstructed. Individualized dose optimization techniques were used for this CT. COMPARISON: None. FINDINGS: There is a diffuse contour abnormality of the liver consistent with cirrhotic changes. Cholelithiasis. No significant dilatation of the extrahepatic biliary system. Normal spleen. Normal pancreas. Normal bilateral adrenal glands. Normal right kidney. Normal left kidney. Normal visualized stomach. Normal small intestine. Normal colon. The appendix is visualized and appears normal. Nonspecific mesenteric thickening is noted along the ascending colon. Normal abdominal aorta. Normal inferior vena cava. Normal retroperitoneum. Normal urinary bladder. Fatty density at the inguinal canals. Small fatty umbilical hernia. Compression of L3 with central depression of the superior endplate. CT/Abdomen/Pelvis without Cont IMPRESSION: Cirrhosis. Cholelithiasis. Nonspecific mesenteric thickening along the ascending colon. Fatty density at the inguinal canals. Small fatty umbilical hernia. Electronically Signed: Thomas Graham DO at 17:51 EST Tel [phone], Service support ,
--- NOTE | 2020-09-28 16:29 | CT_ITS ---
STUDY: CT THORACIC SPINE WITHOUT CONTRAST REASON FOR EXAM: Male, 65 years old. FELL OFF RUNNING BOARD OF TRUCK/BACK AND RIB PAIN RADIATION DOSAGE (If Supplied By Facility): CTDIvol = ( 32.46 ) mGy, DLP = ( 1299.95 ) mGycm TECHNIQUE: The patient was scanned in a multi detector CT scanner. High resolution imaging was performed. Images were obtained from C5 to T12. Sagittal and coronal images were reconstructed. Individualized dose optimization techniques were used for this CT. COMPARISON: None. FINDINGS: Normal visualized cervical spine. Normal kyphosis of the thoracic spine. There is no substantial scoliosis. Mild degenerative changes of the thoracic vertebrae with small spurs at the endplates. Minimal wedge compression of T4. Normal disc spaces heights. The soft tissue structures are unremarkable. CT/Spine Thoracic without Contras IMPRESSION: Mild degenerative changes of the thoracic spine. Minimal wedge compression of T4. Electronically Signed: Thomas Graham DO at 17:58 EST Tel [phone], Service support ,
--- NOTE | 2020-09-28 16:29 | CT_ITS ---
STUDY: CT CHEST WITHOUT CONTRAST REASON FOR EXAM: Male, 65 years old. FELL OFF RUNNING BOARD OF TRUCK/BACK AND RIB PAIN RADIATION DOSAGE (If Supplied By Facility): CTDIvol = ( 19.75 ) mGy, DLP = ( 725.61 ) mGycm TECHNIQUE: Transaxial imaging was performed without the administration of intravenous contrast material. Individualized dose optimization techniques were used for this CT. COMPARISON: None. FINDINGS: The lungs are hyperaerated. Patchy interstitial densities and infiltrates are noted bilaterally. Normal heart and pericardium. Normal mediastinum. Normal hilar regions. Normal unenhanced pulmonary arteries. Normal aorta arch and descending thoracic aorta. Old bilateral rib fractures. Possible cirrhosis. Cholelithiasis. CT/Chest without Contrast IMPRESSION: Hyperaeration. Bilateral patchy interstitial densities and mild patchy infiltrates. Cirrhosis. Cholelithiasis. Electronically Signed: Thomas Graham DO at 17:39 EST Tel [phone], Service support ,
--- NOTE | 2020-09-28 16:29 | CT_ITS ---
STUDY: CT LUMBAR SPINE WITHOUT CONTRAST REASON FOR EXAM: Male, 65 years old. FELL OFF RUNNING BOARD OF TRUCK/BACK AND RIB PAIN RADIATION DOSAGE (If Supplied By Facility): CTDIvol = ( 47.48 ) mGy, DLP = ( 1593.36 ) mGycm TECHNIQUE: The patient was scanned in a multi detector CT scanner. High resolution transaxial imaging was performed. Images were obtained from L1 to sacrum. Sagittal and coronal images were reconstructed. Individualized dose optimization techniques were used for this CT. COMPARISON: 01/29/2019 FINDINGS: Normal lumbar lordosis. There is no substantial scoliosis. Mild compression of L2-3 with interval increasing central depression of the superior endplate. L1-2: Normal endplates. Normal disc height and morphology. Normal bilateral facet joints. Normal central canal and bilateral lateral recesses. Normal bilateral intervertebral neural foramina. L2-3: Normal endplates. Normal disc height with possible central disc protrusion. Normal bilateral facet joints. Normal central canal and bilateral lateral recesses. Normal bilateral intervertebral neural foramina. L3-4: Normal endplates. Normal disc height with annular bulge. Normal bilateral facet joints. Normal central canal and bilateral lateral recesses. Normal bilateral intervertebral neural foramina. L4-5: Normal endplates. Normal disc height with a central disc protrusion. Normal bilateral facet joints. Normal central canal and bilateral lateral recesses. Normal bilateral intervertebral neural foramina. L5-S1: Normal endplates. Normal disc height and morphology. Normal bilateral facet joints. Normal central canal and bilateral lateral recesses. Normal bilateral intervertebral neural foramina. Normal visualized paraspinous soft tissue structures. CT/Spine Lumbar without Contrast IMPRESSION: Mild degenerative changes and discogenic disease of the lumbar spine. Increasing central depression of L3 superior endplate. Electronically Signed: Thomas Graham DO at 18:06 EST Tel [phone], Service support ,
--- NOTE | 2020-09-28 16:30 | ED.DCSUM_ITS ---
History of Present Illness Chief Complaint: Back Informant: Patient Onset: Today Narrative: Patient presents by private vehicle for mechanical fall 1 hour prior to arrival. Climbing up on a truck approximately 2 foot high running boards when he slipped falling directly on his back. Complains of back and rib pain. Denies head injuries. No loss of conscious. He denies any anticoagulation medicines of aspirin or any other blood thinners even with a history of paroxysmal atrial fibrillation and CHF. He states he had a traumatic intracranial hemorrhage in the past along with traumatic rib fractures in the past. Denies any shortness of breath. Denies vomiting or diarrhea. Denies any extremity pain, he ambulated into the ED. Allergies to Sargeant causing a rash. He is tolerated morphine in the past. History of chronic kidney disease followed by Dr. Bustamante. Dejuan o current dialysis. Prior similar symptoms: Yes Past Medical History - Allergies and Home Meds Allergies/Adverse Reactions: Allergies cefuroxime axetil [From Ceftin] Allergy (Verified 09/28/20 16:12) Rash hydrocodone bitartrate [From Vicodin] Allergy (Verified 09/28/20 16:12) Rash Penicillins Allergy (Verified 09/28/20 16:12) Hives DIFFICULTY BREATHING carvedilol [From Coreg] Adverse Reaction (Verified 09/28/20 16:12) black out lisinopril Adverse Reaction (Verified 09/28/20 16:12) cough Primary Care Physician: Donnie Vo DO [Primary Care Provider] - Past Medical History: - - Paroxysmal atrial fibrillation, hypertension, CHF, iron deficiency anemia, chronic kidney disease, traumatic intracranial hemorrhage, previous rib fractures, DVT Surgical History: - - Detached retinal repair, left inguinal hernia. Smoking Status: Never smoker - Family History Paternal Family History: Family History (Last Reviewed 07/18/20 @ 13:38 by Kalpana Pedersen RN) Mother CAD (coronary artery disease) Heart disease Hypertension Respiratory disease Father Bowel disease Depression Respiratory disease H/O ulcer disease Family History: Reports: Cancer, Heart Disease, Pulmonary Disease Maternal Family History: Family History (Last Reviewed 07/18/20 @ 13:38 by Kalpana Pedersen RN) Mother CAD (coronary artery disease) Heart disease Hypertension Respiratory disease Father Bowel disease Depression Respiratory disease H/O ulcer disease Family History: Reports: Heart Disease Review of Systems General: Denies: Chills, Fever, Sweats Eyes: Denies: Visual changes - bilaterally, Diplopia ENT: Denies: Rhinorrhea, Sore throat Cardiovascular: Denies: Chest pain, Palpitations Respiratory: Denies: Dyspnea, Cough, Dyspnea on exertion Gastrointestinal: Denies: Abdominal pain, Nausea, Vomiting, Diarrhea, Melena, Hematochezia Genitourinary: Denies: Dysuria, Hematuria, Frequency Musculoskeletal: Reports: Back pain, - - Rib pain.. Denies: Extremity Pain Skin: Denies: Rash, Wounds Neurological: Denies: Headache, Weakness, Numbness Physical Exam Vital Signs/Narrative: Vital Signs Temp Pulse Resp BP Pulse Ox 09/28/20 16:10 96.8 F L 61 15 162/69 H 97 Inital Vital Signs reviewed: Yes General: Well nourished, Well developed, - - Mild uncomfortable, GCS 15. Head: Normocephalic, Atraumatic Eyes: Perrl, EOMI ENT: Moist mucous membranes, No rhinorrhea, TM's clear, - - No hemotympanum. Neck: Supple, Nontender Cardiovascular: Regular rate, Regular rhythm, No murmurs Respiratory: No distress, CTA bilaterally, - - Symmetric breath sounds. Tender palpation bilateral lower ribs laterally left greater than right without any crepitus. No ecchymosis. Abdomen: Soft, Nondistended, Normal bowel sounds, Tender, - - Mid abdominal tenderness to palpation, no ecchymosis. Back: Normal Inspection, Spinal tenderness, - - There is mid T-spine tenderness T7-T8 along with L-spine tenderness at L2-L3 without any step-offs. Extremities: Nontender, No edema, - - Negative logroll bilaterally. Skin: Normal color, No rash Neurological: Alert, Oriented x3, Cranial nerves II-XII grossly intact, Normal Strength, Normal Sensation Psychological: Normal affect, Normal Mood Diagnostic/Tx/Re-eval Clinical Impression(s) from Imaging Studies Abdomen/Pelvis CT 09/28/20 16:28 IMPRESSION: Cirrhosis. Cholelithiasis. Nonspecific mesenteric thickening along the ascending colon. Fatty density at the inguinal canals. Small fatty umbilical hernia. Electronically Signed: Thomas Graham DO at 17:51 EST Tel [phone], Service support , Chest CT 09/28/20 16:29 IMPRESSION: Hyperaeration. Bilateral patchy interstitial densities and mild patchy infiltrates. Cirrhosis. Cholelithiasis. Electronically Signed: Thomas Graham DO at 17:39 EST Tel [phone], Service support , Lumbar Spine CT 09/28/20 16:29 IMPRESSION: Mild degenerative changes and discogenic disease of the lumbar spine. Increasing central depression of L3 superior endplate. Electronically Signed: Thomas Graham DO at 18:06 EST Tel [phone], Service support , Thoracic Spine CT 09/28/20 16:29 IMPRESSION: Mild degenerative changes of the thoracic spine. Minimal wedge compression of T4. Electronically Signed: Thomas Graham DO at 17:58 EST Tel [phone], Service support , Abnormal Lab Results 09/28/20 09/28/20 09/28/20 16:40 16:40 16:40 WBC 5.6 RBC 4.03 L Hgb 13.2 Hct 40.8 MCV 101.2 H MCH 32.8 H MCHC 32.4 RDW Std Deviation 55.0 H RDW Coeff of Carlos 14.6 Plt Count 125 L MPV 10.8 Immature Gran % (Auto) 0.700 Neut % (Auto) 53.7 Lymph % (Auto) 35.5 Real % (Auto) 7.9 Eos % (Auto) 1.8 Baso % (Auto) 0.4 Absolute Neuts (auto) 3.0 Absolute Lymphs (auto) 1.98 Nucleated RBC % 0 PT 16.0 H INR 1.3 APTT 31.0 Sodium 136 Potassium 4.5 Chloride 105 Carbon Dioxide 25.0 Anion Gap 6 BUN 26 H Creatinine 2.13 H Estim Creat Clear Calc 38.96 Est GFR (MDRD) Af Amer 41 L Est GFR (MDRD) Non-Af 34 L BUN/Creatinine Ratio 12.2 Glucose 93 Calcium 8.3 L Total Bilirubin 3.00 H AST 58 H ALT 34 Alkaline Phosphatase 234 H Total Protein 7.2 Albumin 2.4 L Globulin 4.8 H Albumin/Globulin Ratio 0.5 L Lipase 94 - Medical Decision Making Patient with a mechanical fall denies any head injuries. History of DVT and paroxysmal atrial fibrillation he states not on anticoagulations due to nosebleeds and his intracranial hemorrhage in the past. History of chronic kidney disease therefore IV contrast was obtained. His mechanism was not high velocity to worry about vascular injury. He had rib pains with spine pain. Noncontrast CT chest abdomen pelvis with TL reconstructions were obtained. He was given IV fentanyl all labs are stable creatinine 2.1. This is stable from previous. Image study shows no rib fractures. No intra-abdominal process. Noted slight wedge fracture of T4 along with central depression fracture at L3. He has no radicular symptoms. He ambulated in the ED. Treated for his pain. CT chest also noted concerns for bilateral infiltrates. He has no respiratory distress with pulse ox at 95-96%. He states he has been coughing for the past week with slight sputum. He had Covid last month. He denies any dyspnea symptoms. Multiple allergies he will be placed on Levaquin orally. Be sent home with Percocet for pain control along with follow-up with spine surgeon Dr. Raman Talbot. He is currently not available for discussion for close follow- up, signs and symptoms were given to return. All questions were answered. Of note, due to holiday going into the weekend, he is given a 5-day prescription of Percocet. ED Disposition - Plan for ED Patient: Disposition: Home or Assisted Living Diagnosis: Compression fracture of T4 vertebra, Compression fracture of L3 vertebra, Community acquired pneumonia Instructions: Back Fracture (Compression Fracture), ED Pneumonia (Adult) Prescriptions: Levofloxacin [Levaquin] 750 mg PO DAILY #6 tab Prescription Printed Oxycodone HCl/Acetaminophen [Percocet 5/325] 1 tab PO Q6H PRN PRN 5 Days #20 tab PRN Reason: Pain Prescription Printed Referrals: Donnie Vo DO [Primary Care Provider] - 1 Week Raman Talbot DO [STAFF PHYSICIAN] - 3-5 Days Additional Instructions: CT scan notes wedge fracture at T4, central wedge fracture at L3. Take pain medicines as prescribed follow-up with Dr. Talbot. Pneumonia noted on your CT chest, take antibiotic as prescribed.
[2020-09-28] MEDS: fentaNYL 100 MCG/2 ML Ampul 50 MCG IV ×2 (16:50→18:34)
[2020-09-28 16:59] LABS: Absolute Lymphocyte Count 1.98 X10^3/uL (0.83-4.51); Basophil# 0.02 X10^3/uL; Basophil% 0.4 % (0-1); Eosinophils% 1.8 % (0-5); Hematocrit 40.8 % (40-54); Hemoglobin 13.2 g/dL (13.0-16.5); Lymphocyte # 1.98 X10^3/ul (4.0); Lymphocyte % 35.5 % (19-41); Mean Corp Hgb Conc 32.4 g/dL (32-36); Mean Corpuscular Hgb 32.8 pg (27.0-32.0); Mean Corpuscular Volume 101.2 fL (80-94); Mean Platelet Vol. 10.8 fl (6.2-12.0); Monocyte# 0.44 X10^3/uL; Monocyte% 7.9 % (0-10); NRBC Flagged by Analyzer 0 % (0-5); Neutrophil % 53.7 % (47-70); Platelet Count 125 K/mm3 (150-450); RBC Distribution Width CV 14.6 % (11.6-14.6); Red Blood Count 4.03 M/mm3 (4.6-6.2); White Blood Count 5.6 K/mm3 (4.4-11.0)
[2020-09-28 17:09] LABS: International Normalized Ratio 1.3
[2020-09-28 17:14] LABS: ALB/GLOB Ratio 0.5 RATIO (0.9-2.4); AST(SGOT) 58 U/L (15-37); Alanine Aminotransfer ALT/SGPT 34 U/L (16-61); Albumin, Serum 2.4 g/dL (3.2-5.0); Alkaline Phosphatase 234 U/L (45-117); Anion Gap 6 (5-15); BUN 26 mg/dL (7-18); BUN/Creat Ratio 12.2 RATIO (10-20); Calcium,Total 8.3 mg/dL (8.5-10.1); Chloride 105 mmol/L (98-107); Creatinine, Serum 2.13 mg/dL (0.70-1.30); EST Glomerular Filtration Rate 34 mL/min (>60); Est Glom Filt Rate - Afr Amer 41 mL/min (>60); Estimated Creatinine Clearance 38.96 ml/min; Globulin 4.8 g/dL (2.2-4.2); Glucose 93 mg/dL (74-106); Lipase 94 U/L (73-393); Potassium 4.5 mmol/L (3.5-5.1); Protein, Total 7.2 g/dL (6.4-8.2); Sodium Level 136 mmol/L (136-145)
[2020-09-28 18:16] VITALS: BP 150/94; PULSE 65; RESP 18
[2020-09-28] MEDS: levoFLOXacin 750 MG Tablet PO (18:50)
[2020-09-28 19:16] VITALS: BP 161/86; PULSE 72; RESP 16
== END 2020-09-28 19:56 | disposition home or self-care (01) ==
PROVIDERS: Emergency Provider Emergency Medicine; PCP Student in an Organized Health Care Education/Training Program
DX: S22.049A Unspecified fracture of fourth thoracic vertebra, initial encounter for closed fracture (principal); S32.039A Unspecified fracture of third lumbar vertebra, initial encounter for closed fracture; J18.9 Pneumonia, unspecified organism; I13.0 Hypertensive heart and chronic kidney disease with heart failure and stage 1 through stage 4 chronic kidney disease, or unspecified chronic kidney disease; N18.9 Chronic kidney disease, unspecified; I50.9 Heart failure, unspecified; Z79.899 Other long term (current) drug therapy; W17.89XA Other fall from one level to another, initial encounter; Y93.89 Activity, other specified; Y92.89 Other specified places as the place of occurrence of the external cause; Y99.8 Other external cause status
CPT/HCPCS: 71250; 72128; 72131; 74176; 80053; 83690; 85025; 85610; 85730; 96374; 96375; 99285; A4216

== ENCOUNTER 2020-09-30 20:03 | Emergency (ER) | payer MEDICAID, SELFPAY ==
[2020-09-30 20:05] VITALS: BP 141/83; PULSE 74; RESP 18; TEMP 36.3; O2SAT 97; BMI 36.6
--- NOTE | 2020-09-30 20:21 | ED.VIS.GEN ---
History of Present Illness Chief Complaint: Fall Informant: Patient Onset: Days Current Severity: Moderate Maximum Severity: Moderate Narrative: Patient presents with continued pain. Patient was seen here in the ER on September 28 after falling from a running board of a truck. CT scans of his chest, abdomen, and pelvis were obtained with reconstructions of the thoracic and lumbar spine. There was evidence of a T4 wedge fracture and an L3 central wedge fracture. Patient was treated with morphine in the ER and discharged on Percocet. Patient returns back today stating he is still having significant pain. Patient was noted to have evidence of pneumonia on his chest CT and is currently on Levaquin. Patient denies shortness of breath. He points to the right lateral ribs and describing his area of pain. - Past Medical History (1) Longstanding persistent atrial fibrillation Status: Chronic (2) Atherosclerotic heart disease of [place] coronary artery without angina pectoris Status: Chronic (3) Benign essential hypertension Status: Chronic (4) CAD (coronary artery disease) Status: Chronic (5) CHF (congestive heart failure) Status: Chronic (6) Cardiomyopathy Status: Chronic (7) Cirrhosis of liver Status: Chronic (8) DVT (deep venous thrombosis) Status: Chronic (9) Hypertension Status: Chronic (10) IBS (irritable bowel syndrome) Status: Chronic (11) Kidney disease, chronic, stage III (moderate, EGFR 30-59 ml/min) Status: Chronic Past Medical History - Allergies and Home Meds Allergies/Adverse Reactions: Allergies cefuroxime axetil [From Ceftin] Allergy (Verified 09/30/20 20:08) Rash hydrocodone bitartrate [From Vicodin] Allergy (Verified 09/30/20 20:08) Rash Penicillins Allergy (Verified 09/30/20 20:08) Hives DIFFICULTY BREATHING carvedilol [From Coreg] Adverse Reaction (Verified 09/30/20 20:08) black out lisinopril Adverse Reaction (Verified 09/30/20 20:08) cough Primary Care Physician: Donnie Vo DO [Primary Care Provider] - Prior records reviewed: Yes Surgical History: - - Detached retinal repair, left inguinal hernia. Smoking Status: Never smoker - Family History Paternal Family History: Family History (Last Reviewed 07/18/20 @ 13:38 by Kalpana Pedersen RN) Mother CAD (coronary artery disease) Heart disease Hypertension Respiratory disease Father Bowel disease Depression Respiratory disease H/O ulcer disease Family History: Reports: Cancer, Heart Disease, Pulmonary Disease Maternal Family History: Family History (Last Reviewed 07/18/20 @ 13:38 by Kalpana Pedersen RN) Mother CAD (coronary artery disease) Heart disease Hypertension Respiratory disease Father Bowel disease Depression Respiratory disease H/O ulcer disease Family History: Reports: Heart Disease Review of Systems General: Denies: Chills, Fever Eyes: Denies: Visual changes - bilaterally ENT: Denies: Bilateral ear pain Cardiovascular: Reports: Chest pain - Right lateral ribs Respiratory: Denies: Dyspnea Gastrointestinal: Denies: Abdominal pain, Nausea, Vomiting, Diarrhea Genitourinary: Denies: Dysuria Musculoskeletal: Denies: Swelling, Extremity Pain Skin: Denies: Rash Hematologic: Denies: Easy bruising, Easy bleeding Allergy: Denies: Uticaria Physical Exam Vital Signs/Narrative: Vital Signs Temp Pulse Resp BP Pulse Ox 09/30/20 20:05 97.3 F L 74 18 141/83 H 97 Inital Vital Signs reviewed: Yes General: Well nourished, Well developed Head: Normocephalic ENT: Moist mucous membranes Neck: Supple Cardiovascular: Regular rate, Regular rhythm Respiratory: No distress, CTA bilaterally, Chest tenderness - Right lateral chest wall tenderness. No crepitus. Extremities: Nontender Skin: Normal color Neurological: Alert, Oriented x3 Psychological: Normal affect Diagnostic/Tx/Re-eval Chest X-Ray - ED: 2 View, Read by ED Physician, Chronic Changes - Right lower lobe consolidation versus scarring. No pneumothorax. No obvious rib fracture. Impressions Chest X-Ray 09/30/20 20:28 IMPRESSION: 1. No pneumothorax. 2. Lateral right lung base pleural fibrotic thickening or effusion, new. 3. Pulmonary fibrosis. Electronically Signed: Jase Deutsch MD ([place]) at 20:39 EST , Service support , 09/30/20 20:28 Chest PA and Lateral [RAD] Stat - Medical Decision Making Patient was given morphine and Zofran for pain here. Repeat evaluation he reported some improvement but still had pain. Chest x-ray shows no pneumothorax. There is evidence of scarring in the right lower lobe per radiologist read. Patient did have evidence of pneumonia on his CT scan 2 days ago. I did advise him that this could be musculoskeletal pain from his fall, radicular pain from his L4 compression fracture, or pain from his pneumonia. At this time vital signs are normal. Neuro exam is normal. Patient will be given a 12 mcg fentanyl patch to provide slow constant dose of pain medication and he will use his Percocet for breakthrough pain. He voices understanding and agreement. ED Disposition - Plan for ED Patient: Disposition: Home or Assisted Living Diagnosis: Contusion of rib on right side Instructions: ED Contusion, Rib Referrals: Donnie Vo DO [Primary Care Provider] - 3-5 Days if not improving
--- NOTE | 2020-09-30 20:28 | RAD_ITS ---
STUDY: X-RAY CHEST REASON FOR EXAM: Male, 65 years old. pt fell a couple days ago.r flank and chest pain. pt claims hx of rib fractures. TECHNIQUE: PA and lateral views of the chest. COMPARISON: 07/22/2019 FINDINGS: Peripheral dominant interstitial fibrosis overall similar since the prior study. There is slight pleural thickening along the lateral right chest base. Normal size heart. Normal mediastinum and annamarie. Normal visualized pulmonary arteries. Normal visualized aortic arch and descending thoracic aorta. There is demineralization of the osseous structures. No obvious fracture. There is no demonstrated abnormality of the visualized soft tissue structures of the upper abdomen. RAD/Chest PA and Lateral IMPRESSION: 1. No pneumothorax. 2. Lateral right lung base pleural fibrotic thickening or effusion, new. 3. Pulmonary fibrosis. Electronically Signed: Jase Deutsch MD ([place]) at 20:39 EST , Service support ,
[2020-09-30] MEDS: Ondansetron 4 MG/2 ML Vial IV (20:46)
[2020-09-30] MEDS: Morphine 4 MG/ML Syringe IV (20:47)
[2020-09-30] MEDS: Lidocaine 5% Patch 1 PATCH TOPICAL (20:50)
[2020-09-30 21:52] VITALS: BP 107/67; PULSE 71; RESP 15; O2SAT 91
[2020-09-30 21:54] VITALS: BP 107/67; PULSE 71; RESP 15; O2SAT 91
== END 2020-09-30 22:23 | disposition home or self-care (01) ==
PROVIDERS: Emergency Provider Emergency Medicine; PCP Student in an Organized Health Care Education/Training Program
DX: S20.211A Contusion of right front wall of thorax, initial encounter (principal); I25.10 Atherosclerotic heart disease of native coronary artery without angina pectoris; I13.0 Hypertensive heart and chronic kidney disease with heart failure and stage 1 through stage 4 chronic kidney disease, or unspecified chronic kidney disease; I50.9 Heart failure, unspecified; N18.30 Chronic kidney disease, stage 3 unspecified; Z86.718 Personal history of other venous thrombosis and embolism; Z79.899 Other long term (current) drug therapy; W17.89XA Other fall from one level to another, initial encounter; Y93.89 Activity, other specified; Y92.89 Other specified places as the place of occurrence of the external cause; Y99.8 Other external cause status
CPT/HCPCS: 71046; 96374; 96375; 99283; A4216; J2405

== ENCOUNTER 2020-10-12 04:11 | Inpatient (IN) | payer MEDICAID, SELFPAY ==
[2020-10-11 10:50] VITALS: BMI 35.9
[2020-10-12] VITALS (32 sets, daily range): BP systolic 111–177; BP diastolic 64–111; PULSE 88–122; RESP 18–34; TEMP 35.7–36.6; O2SAT 92–100; BMI 38.6; BMI 37.6
--- NOTE | 2020-10-12 04:12 | EKG12_ITS ---
Test Reason : DYSRHYTHMIA Blood Pressure : / mmHG Vent. Rate : 091 BPM Atrial Rate : 091 BPM P-R Int : 200 ms QRS Dur : 120 ms QT Int : 378 ms P-R-T Axes : 090 -20 106 degrees QTc Int : 464 ms Normal sinus rhythm with sinus arrhythmia Cannot rule out Inferior infarct , age undetermined Nonspecific ST and T wave abnormality Abnormal ECG Confirmed by CHERISE MARTINES, LARA ([id number]), magazine editor JOELLE AGUILAR ([id number]) on 10/13/2020 8:28:18 AM Referred By: KING Confirmed By:LARA LUONG MD
--- NOTE | 2020-10-12 04:12 | RAD_ITS ---
STUDY: X-RAY CHEST REASON FOR EXAM: Male, 65 years old. Patient unresponsive. Suspected stroke. TECHNIQUE: AP portable chest. COMPARISON: September 30, 2020. August 21, 2020. CT chest September 28, 2020. FINDINGS: Borderline cardiomegaly. Elevated right hemidiaphragm unchanged. There is mild linear density in the right midlung as compared to prior study. Scattered areas of fibrosis. No effusions. No pneumothorax. There is no demonstrated abnormality of the visualized soft tissue structures of the upper abdomen. RAD/Chest 1 View IMPRESSION: Right midlung subsegmental atelectasis versus pneumonia. Otherwise no significant change in findings of chronic interstitial lung disease. Electronically Signed: Christopher Mays MD at 5:26 EST , Service support ,
--- NOTE | 2020-10-12 04:12 | CT_ITS ---
We are attempting to reach an attending provider to discuss findings. An addendum with communication details will be sent when the communication is complete. STUDY: CT HEAD STROKE PROTOCOL W/O CONTRAST INJECTION REASON FOR EXAM: Male, 65 years old. Stroke. TECHNIQUE: Transaxial CT imaging of the brain was performed without administration of intravenous contrast material. Individualized dose optimization techniques were used for this CT. COMPARISON: November 03, 2018. FINDINGS: Normal soft tissue structures. Normal calvarium. There is mild cerebral atrophy with widening of the extra-axial spaces and ventricular dilatation. There are areas of decreased attenuation within the white matter tracts of the supratentorial brain, consistent with microvascular disease changes. Normal basal ganglia and thalami. Normal brainstem. Normal cerebellum. There is no intracranial hemorrhage. There are no findings of an acute ischemic infarction. Normal visualized paranasal sinuses. ASPECT score: 10 CT/STROKE Brain/Head without Cont IMPRESSION: No acute intracranial abnormality. If there is a high clinical suspicion of acute infarction consider MRI. Electronically Signed: Christopher Mays MD at 4:36 EST , Service support ,
--- NOTE | 2020-10-12 04:13 | CT_ITS ---
STUDY: CTA HEAD AND NECK WITH CONTRAST REASON FOR EXAM: Male, 65 years old. Stroke. Difficulty walking. Cerebellar symptoms. RADIATION DOSAGE (If Supplied By Facility): CTDIvol = ( 17.59 ) mGy, DLP = ( 770.10 ) mGycm TECHNIQUE: CT angiography was performed with a multi-detector CT scanner. Data acquisition was obtained from the skull base through the vertex following intravenous administration of IV- 100 ML ISOVUE 300. MIP images were reconstructed from the axial data set. Post-processing of the angiographic images was performed, with multiplanar reformation and 3D reconstruction. Individualized dose optimization techniques were used for this CT. COMPARISON: CT head October 12, 2020. FINDINGS: Normal bilateral petrous carotid arteries. Normal right cavernous carotid artery with a normal supraclinoid bifurcation. Normal left cavernous carotid artery with a normal supraclinoid bifurcation. Atherosclerotic calcification of the cavernous portion of the internal carotid arteries. Normal right A1 segments of the anterior cerebral artery. Normal left A1 segments of the anterior cerebral artery. Normal intact anterior communicating artery (ACOM). Normal bilateral A2 segments of the anterior cerebral arteries. Normal right M1 and M2 segments of the middle cerebral arteries, with a normal M1 bifurcation. Normal left M1 and M2 segments of the middle cerebral arteries, with a normal M1 bifurcation. Normal right posterior communicating artery (PCOM). Normal left posterior communicating artery (PCOM). Bilateral vertebral arteries dominant on the right. Atherosclerotic calcification of the vertebral arteries bilaterally. There is hypoplasia of the distal left vertebral artery. Normal basilar artery with a normal basilar bifurcation. Superior cerebellar arteries not well visualized. Normal bilateral P1, P2 and visualized P3 segments of the posterior cerebral arteries. There is no demonstrated aneurysm of the barrow of [place]. There is no demonstrated abnormality of the visualized brain. AORTIC ARCH: Normal visualized aortic arch. Normal origins of the brachiocephalic, left common carotid, and left subclavian arteries. RIGHT CAROTID ARTERIES: Normal right common carotid artery (CCA). Atherosclerotic calcification right common carotid bulb and very proximal right internal carotid artery without a high-grade stenosis. Remainder of the right internal carotid (ICA) artery without a hemodynamically significant stenosis. Normal visualized cervical portion of the right internal carotid artery. Normal origin of the right external carotid artery (ECA). LEFT CAROTID ARTERIES: Normal left common carotid artery (CCA). Atherosclerotic calcification left common carotid bulb and very proximal left internal carotid artery without a high-grade stenosis. Remainder of the left internal carotid (ICA) artery without a hemodynamically significant stenosis. Normal visualized cervical portion of the left internal carotid artery. Normal origin of the left external carotid artery (ECA). VERTEBRAL ARTERIES: Right vertebral artery is dominant. Atherosclerosis of the origin of the right vertebral artery without high-grade stenosis. Significant atherosclerosis involving the distal right vertebral artery. There is significant hypoplasia or complete occlusion of the distal left vertebral artery beginning slightly superior to the tip of the odontoid basilar artery is normal. CT/STROKE CTA Head AND Neck W/Con IMPRESSION: Hypoplastic or occluded distal left vertebral artery. Atherosclerotic calcification of the distal right vertebral artery. Otherwise normal barrow of [place]. Atherosclerotic calcification of the carotid bulb and proximal internal carotid arteries without a high-grade stenosis. Otherwise normal carotid arteries. N.B. : The above information has been verbally conveyed by Christopher Mays MD to Dr. Mark Valdez MD, on 10/12/2020 04:40:05 (ET). Electronically Signed: Christopher Mays MD at 5:03 EST , Service support ,
--- NOTE | 2020-10-12 04:25 | ED.VIS.STROK ---
History of Present Illness Chief Complaint: Neuro S/Sx Informant: Psychiatric Clinician Onset: Yesterday Context: Sudden Onset Quality and Location: Difficulty with Ambulation Onset: October 11 at 1030 Current Severity: Moderate Maximum Severity: Moderate Worsened by: Nothing Relieved by: Nothing Associated Symptoms: Negative for: Headache, Nausea, Vomiting Narrative: Patient is an elderly male with multiple medical problems who arrived by ambulance from home because of concern for stroke. Squad states he is not able to walk. He was last known well at 1030 on October 11. He is not a good informant. Awaiting for arrival of his . He needs repeated verbal stimuli. He did not answer all questions appropriately. He denies headache. Denies visual disturbance. He denies cardiac respiratory symptoms. He denies nausea or vomiting. He denies urologic symptoms. Of note he is disoriented. Prior similar symptoms: No Recent Illness/Hospitalization: No - Past Medical History (1) Hypoxia Status: Acute (2) Ascites Status: Chronic (3) Atherosclerotic heart disease of [place] coronary artery without angina pectoris Status: Chronic (4) Benign essential hypertension Status: Chronic (5) CAD (coronary artery disease) Status: Chronic (6) CHF (congestive heart failure) Status: Chronic (7) Cardiomyopathy Status: Chronic (8) DVT (deep venous thrombosis) Status: Chronic (9) Deafness in left ear Status: Chronic (10) Deficiency anemia Status: Chronic (11) HLD (hyperlipidemia) Status: Chronic (12) Hepatitis B Status: Chronic (13) IBS (irritable bowel syndrome) Status: Chronic (14) Long-term use of high-risk medication Status: Chronic (15) Longstanding persistent atrial fibrillation Status: Chronic (16) Non-ischemic cardiomyopathy Status: Chronic (17) ZAID (obstructive sleep apnea) Status: Chronic (18) PAF (paroxysmal atrial fibrillation) Status: Chronic Comment: DCCV in August 2017; (19) Sleep apnea Status: Chronic (20) VTE (venous thromboembolism) Status: Chronic (21) Iron deficiency anemia Status: Resolved Past Medical History - Allergies and Home Meds Allergies/Adverse Reactions: Allergies cefuroxime axetil [From Ceftin] Allergy (Verified 10/12/20 04:32) Rash hydrocodone bitartrate [From Vicodin] Allergy (Verified 10/12/20 04:32) Rash Penicillins Allergy (Verified 10/12/20 04:32) Hives DIFFICULTY BREATHING carvedilol [From Coreg] Adverse Reaction (Verified 10/12/20 04:32) black out lisinopril Adverse Reaction (Verified 10/12/20 04:32) cough Primary Care Physician: Donnie Vo DO [Primary Care Provider] - Prior records reviewed: Yes Surgical History: - - Detached retinal repair, left inguinal hernia. Lives: Spouse/ Significant Other Smoking Status: Never smoker Alcohol: None Drugs: None - Family History Paternal Family History: Family History (Last Reviewed 10/11/20 @ 10:53 by Liane Moreau) Mother CAD (coronary artery disease) Heart disease Hypertension Respiratory disease Father Bowel disease Depression Respiratory disease H/O ulcer disease Family History: Reports: Cancer, Heart Disease, Pulmonary Disease Maternal Family History: Family History (Last Reviewed 10/11/20 @ 10:53 by Liane Moreau) Mother CAD (coronary artery disease) Heart disease Hypertension Respiratory disease Father Bowel disease Depression Respiratory disease H/O ulcer disease Family History: Reports: Heart Disease Review of Systems ROS: Unable to Obtain - Patient is disoriented, slow mentation and no family members present STROKE Vital Signs/Narrative: Vital Signs Temp Pulse Resp BP Pulse Ox 10/12/20 04:12 97 F L 91 18 141/82 H 98 Inital Vital Signs reviewed: Yes - NIHSS Initial 1a Level of Consciousness: 1 1b LOC Questions (Score 2 if aphasic/stupor): 2 1c LOC Commands (Only score 1st attempt): 1 2 Best Gaze (If aphasic, use reflexive mvmts.): 0 3 Visual: 0 4 Facial Palsy: 0 5 Motor Arm Right (UN = amputation/fusion): 1 5 Motor Arm Left: 0 6 Motor Leg Right: 2 6 Motor Leg Left: 2 7 Limb ataxia (Only + if out of proportion): 1 8 Sensory (Aphasia/stupor=0 or 1, coma=2): 0 9 Best Language: 1 10 Dysarthria (mute, coma=2, intubated=UN): 0 11 Extinction and Inattention (only scored if +): 0 Total Score: 11 General: Well nourished, Well developed, Obese Head: Normocephalic, Atraumatic Eyes: Perrl, EOMI, Pale conjunctiva - Possible pale conjunctive a, Scleral icterus ENT: Moist mucous membranes, No rhinorrhea Neck: Supple, Nontender, No lymphadenopathy, No JVD Cardiovascular: Regular rate, Regular rhythm, No murmurs, Normal S1, Normal S2 Respiratory: No distress, CTA bilaterally, Chest nontender Abdomen: Soft, Nontender, Nondistended, Hypoactive bowel sounds Rectal: Deferred Back: Nontender, Normal Inspection Extremities: Nontender, Edema - 8 mm pitting edema bilaterally Skin: Jaundice, Pallor. Negative for: Cyanosis, Diaphoresis Neurological: Cranial nerves II-XII grossly intact, Normal Sensation. Negative for: Alert, Oriented x3, Normal Strength, Normal Gait Psychological: - - Affect is flat. Diagnostic/Tx/Re-eval Received call from radiologist at 0436 and inform either there is no abnormality noted on the CT minus of the head. I received a call from same radiologist, Dr. Chrisotpher Mays at [phone] and he informed me there may be a total occlusion of the left vertebral artery versus significant narrowing. In light of this information [facility] was recontacted. Spoke with neurologist. She wishes to look at the CTA and will call me back in 5 to [address] 10/12/20 04:12 IMPRESSION: No acute intracranial abnormality. If there is a high clinical suspicion of acute infarction consider MRI. Electronically Signed: Christopher Mays MD at 4:36 EST , Service support , ADDENDUM: 10/12/20 0510 IMPRESSION: No acute intracranial abnormality. If there is a high clinical suspicion of acute infarction consider MRI. N.B. : The above information has been verbally conveyed by Christopher Mays MD to Dr. Mark Valdez MD, on 10/12/2020 05:03:20 (ET). Electronically Signed: Christopher Mays MD at 4:36 EST , Service support , Head/Neck CTA 10/12/20 04:13 IMPRESSION: Hypoplastic or occluded distal left vertebral artery. Atherosclerotic calcification of the distal right vertebral artery. Otherwise normal [place]. Atherosclerotic calcification of the carotid bulb and proximal internal carotid arteries without a high-grade stenosis. Otherwise normal carotid arteries. N.B. : The above information has been verbally conveyed by Christopher Mays MD to Dr. Mark Valdez MD, on 10/12/2020 04:40:05 (ET). Electronically Signed: Christopher Mays MD at 5:03 EST , Service support , ADDENDUM: 10/12/20 0510 IMPRESSION: Hypoplastic or occluded distal left vertebral artery. Atherosclerotic calcification of the distal right vertebral artery. Otherwise normal [place]. Atherosclerotic calcification of the carotid bulb and proximal internal carotid arteries without a high-grade stenosis. Otherwise normal carotid arteries. N.B. : The above information has been verbally conveyed by Christopher Mays MD to Dr. Mark Valdez MD, on 10/12/2020 04:40:05 (ET). Electronically Signed: Christopher Mays MD at 5:03 EST , Service support , 10/12/20 04:12 Chest 1 View [RAD] Stat STROKE Brain/Head without Cont [CT] Stat 10/12/20 04:13 STROKE CTA Head AND Neck W/Con [CT] Stat 10/12/20 05:24 Abdomen Single View (Portable) [RAD] Stat Laboratory Results 10/12/20 10/12/20 10/12/20 04:42 04:42 04:42 WBC 4.2 L RBC 3.85 L Hgb 12.8 L Hct 38.7 L MCV 100.5 H MCH 33.2 H MCHC 33.1 RDW Std Deviation 57.4 H RDW Coeff of [place] 15.7 H Plt Count 104 L MPV 10.9 Immature Gran % (Auto) 0.700 Neut % (Auto) 74.1 H Lymph % (Auto) 16.0 L [place] % (Auto) 8.8 Eos % (Auto) 0.2 Baso % (Auto) 0.2 Absolute Neuts (auto) 3.1 Absolute Lymphs (auto) 0.67 L Nucleated RBC % 0 PT 16.3 H INR 1.4 APTT 33.3 Specimen Type VBG pH VBG pO2 VBG HCO3 VBG Total CO2 VBG O2 Sat (Calc) VBG Base Excess POC Mix VBG pCO2 Pt Tmp O2 Delivery Device Sodium 138 Potassium 4.7 Chloride 106 Carbon Dioxide 26.0 Anion Gap 6 BUN 70 H Creatinine 2.89 H Estim Creat Clear Calc 28.72 Est GFR (MDRD) Af Amer 29 L Est GFR (MDRD) Non-Af 24 L BUN/Creatinine Ratio 24.2 H Glucose 93 Calcium 7.9 L Total Bilirubin 2.90 H Direct Bilirubin 1.56 H AST 43 H ALT 21 Alkaline Phosphatase 209 H Ammonia Troponin I < 0.015 Total Protein 6.3 L Albumin 2.3 L Globulin 4.0 Urine Color Urine Clarity Urine pH Ur Specific [place] Urine Protein Urine Glucose (UA) Urine Ketones Urine Occult Blood Urine Nitrite Urine Bilirubin Urine Urobilinogen Ur Leukocyte Esterase Urine RBC Urine WBC Ur Squamous Epith Cells Urine Bacteria Urine Mucus 10/12/20 10/12/20 10/12/20 04:42 04:45 04:53 WBC RBC Hgb Hct MCV MCH MCHC RDW Std Deviation RDW Coeff of [place] Plt Count MPV Immature Gran % (Auto) Neut % (Auto) Lymph % (Auto) [place] % (Auto) Eos % (Auto) Baso % (Auto) Absolute Neuts (auto) Absolute Lymphs (auto) Nucleated RBC % PT INR APTT Specimen Type AYE VBG pH 7.40 VBG pO2 31 VBG HCO3 25 VBG Total CO2 26 VBG O2 Sat (Calc) 59 VBG Base Excess 0 POC Mix VBG pCO2 Pt Tmp 40.0 L O2 Delivery Device Room Air Sodium Potassium Chloride Carbon Dioxide Anion Gap BUN Creatinine Estim Creat Clear Calc Est GFR (MDRD) Af Amer Est GFR (MDRD) Non-Af BUN/Creatinine Ratio Glucose Calcium Total Bilirubin Direct Bilirubin AST ALT Alkaline Phosphatase Ammonia 300.0 H Troponin I Total Protein Albumin Globulin Urine Color Yellow Urine Clarity Clear Urine pH 6.0 Ur Specific [place] 1.015 Urine Protein Negative Urine Glucose (UA) Normal Urine Ketones Negative Urine Occult Blood Negative Urine Nitrite Negative Urine Bilirubin Negative Urine Urobilinogen Normal Ur Leukocyte Esterase Negative Urine RBC 0 SEEN Urine WBC 0 SEEN Ur Squamous Epith Cells 0 SEEN Urine Bacteria 0 SEEN Urine Mucus 0 SEEN G was obtained to assess for hypercapnia as a cause of his depressed level of conscious. Suspect patient has hepatic encephalopathy with an ammonia of 300. There is no evidence of urinary tract infection. Single view portable chest x-ray was interpreted by me as unchanged from September 30, 2020. The cardiac silhouette is unremarkable. Cardiac size is within normal limits. There is fibrotic changes with scarring noted. This is unchanged since prior x-ray. There is no evidence of effusion or pneumothorax. Patient has acute on chronic renal failure. Patient has neutropenia and thrombocytopenia due to his liver disease. He also has anemia of chronic illness. Bilirubin is elevated. Chest X-Ray - ED: 1 View, Read by ED Physician, Normal, Heart, Mediastinum, - - Dense of pulmonary fibrosis. X-ray was interpreted by me at 0525. - Medical Decision Making Stroke Team Activated: Yes Reviewed Inclusion/Exclusion criteria: Yes IV Alteplase (t-PA) Administered: No - Outside the window No contraindications for IV Alteplase (t-PA) administration.: No - 18 hours since last known well Alteplase (t-PA) risks, benefits, alternative discussed: No Not given: Patient refusal: No With difficulty ambulating abnormal cellular testing on the left side possibly for cerebellar infarct needs to be ruled out. After performing complete exam once patient returned from the radiology suite he is noted to be jaundiced. Review of prior records indicates he has history of ascites and hepatitis B. This could represent hepatic encephalopathy. Need to rule out metabolic and infectious causes for his altered mental status. I did speak with the neurologist at [facility]. She states since onset was greater than 18 hours unless there is something on the CTA that he would need a medical work-up and could stay at [facility]. The stroke neurologist states she had difficulty examined him because he is not very responsive. I informed her that his ammonia level returned at 300. She did look at the CTA. Based on where the lesion is located, no need for transfer or intervention. She states he would need a complete work-up to evaluate this lesion. NG was ordered to administer lactulose. 20 mL was ordered. Hospitalist was paged for admission. Critical care time (excluding procedures): 30-74 minutes - Occludes discussion with paramedics, obtaining history from patient, review of prior records, physical examination, discussion with neuro radiologist at [facility] x3, discussion with radiologist regarding CT minus and CTA of the head and neck. Discussion with hospitalist to facilitate admission. 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
[2020-10-12 04:53] LABS: Bacteria 0 SEEN /hpf (None Seen); Mucous, Urine 0 SEEN /hpf (<or=2+); Red Blood Cells-Urine 0 SEEN /hpf (0-5); Squamous Epithelial Cells - UA 0 SEEN /hpf (0-5); White Blood Cells 0 SEEN /hpf (0-5)
[2020-10-12 04:55] LABS: Absolute Lymphocyte Count 0.67 X10^3/uL (0.83-4.51); Absolute Neutrophil Count 3.1 X10^3/uL (2.0-7.7); Basophil# 0.01 X10^3/uL; Basophil% 0.2 % (0-1); Eosinophil# 0.01 X10^3/uL; Eosinophils% 0.2 % (0-5); Hematocrit 38.7 % (40-54); Hemoglobin 12.8 g/dL (13.0-16.5); Lymphocyte # 0.67 X10^3/ul (4.0); Mean Corp Hgb Conc 33.1 g/dL (32-36); Mean Corpuscular Hgb 33.2 pg (27.0-32.0); Mean Corpuscular Volume 100.5 fL (80-94); Mean Platelet Vol. 10.9 fl (6.2-12.0); Monocyte# 0.37 X10^3/uL; Monocyte% 8.8 % (0-10); NRBC Flagged by Analyzer 0 % (0-5); Neutrophil % 74.1 % (47-70); Platelet Count 104 K/mm3 (150-450); RBC Distribution Width CV 15.7 % (11.6-14.6); RBC Distribution Width SD 57.4 fl (35.1-43.9); Red Blood Count 3.85 M/mm3 (4.6-6.2); White Blood Count 4.2 K/mm3 (4.4-11.0)
[2020-10-12 04:56] LABS: Color, Urine Yellow (Yellow); Glucose, Dipstick Normal (Normal); Ketone-Dipstick Negative (Negative); Leukocyte Esterase-Dipstick Negative /ul (Negative); Nitrite-Dipstick Negative (Negative); Occult Blood-Urine Negative /ul (Negative); Protein-Dipstick Negative (Negative); Specific Gravity, Urine 1.015 (1.002-1.030); Urine Bilirubin Dipstick Negative (Negative); Urine Clarity Clear (Clear); Urine Urobilinogen Normal (Normal)
[2020-10-12 05:01] LABS: Blood Gas Specimen Type VEN; O2 Delivery Device Room Air; VBG BASE EXCESS 0 mmol/L (-1.0-3.5); VBG Bicarbonate 25 mmol/L (22-26); VBG PO2 31 mmHg (25-40); VBG SO2 59 % (50-70); VBG TCO2 26 mmol/L (23-33)
[2020-10-12 05:03] LABS: International Normalized Ratio 1.4; Prothrombin Time (Protime)PT. 16.3 SECONDS (11.7-14.9)
[2020-10-12 05:04] LABS: Partial Thromboplast Time 33.3 Seconds (24.1-36.2)
[2020-10-12 05:13] LABS: AST(SGOT) 43 U/L (15-37); Alanine Aminotransfer ALT/SGPT 21 U/L (16-61); Albumin, Serum 2.3 g/dL (3.2-5.0); Alkaline Phosphatase 209 U/L (45-117); Anion Gap 6 (5-15); BUN 70 mg/dL (7-18); BUN/Creat Ratio 24.2 RATIO (10-20); Bilirubin, Direct 1.56 mg/dL (0.00-0.30); Calcium,Total 7.9 mg/dL (8.5-10.1); Chloride 106 mmol/L (98-107); Creatinine, Serum 2.89 mg/dL (0.70-1.30); EST Glomerular Filtration Rate 24 mL/min (>60); Est Glom Filt Rate - Afr Amer 29 mL/min (>60); Estimated Creatinine Clearance 28.72 ml/min; Glucose 93 mg/dL (74-106); Potassium 4.7 mmol/L (3.5-5.1); Protein, Total 6.3 g/dL (6.4-8.2); Sodium Level 138 mmol/L (136-145)
--- NOTE | 2020-10-12 05:24 | RAD_ITS ---
STUDY: X-RAY - ABDOMEN/PELVIS REASON FOR EXAM: Male, 65 years old. Nasogastric tube placement. TECHNIQUE: AP upright abdomen. COMPARISON: Lumbar spine October 11, 2020. Chest x-ray October 12, 2020. FINDINGS: Nasogastric tube tip in the gastric fundus. Mildly elevated right hemidiaphragm. Mildly dilated loops of small bowel left abdomen. There is no demonstrated free abdominal air. The visualized liver, spleen and kidneys are grossly normal in size and morphology. Normal soft tissue structures. Normal visualized osseous structures. RAD/Abdomen Single View (Portable) IMPRESSION: Nasogastric tube tip in gastric fundus. Mildly dilated loops of small bowel left abdomen which could represent an early small bowel obstruction versus an adynamic ileus. Electronically Signed: Christopher Mays MD at 6:28 EST , Service support ,
[2020-10-12] MEDS: Lidocaine 4% 5 ML Ampul 2 ML INHALATION (05:35)
--- NOTE | 2020-10-12 05:47 | HP.PCM_ITS ---
History of Present Illness Date of Admission: 10/12/20 Chief Complaint: Confusion, lethargy The patient is a 65 year old M with multiple comorbidities who presented with confusion. Patient is encephalopathic and lethargic and history was obtained from review of chart and ED physician. Patient portably had a fall around [place] and fractured his b sustained an L3 compression fracture ack. This morning was family was getting him ready for follow-up appointment with orthopedic/computer network specialist, his noted that he was not acting normal. He had nausea and was vomiting and was confused. He has not been able to eat or drink. His symptoms continued and patient tried to drink his urine out of the urinal. She called 911. Stroke alert was called on account of ataxia. Was in the ED showed temperature of 90 7F, heart rate 91, blood pressure 141/82, respiratory rate 18, SPO2 98% on room air. BC count 4.2, hemoglobin 12.8, platelet count 104(which is about his baseline). INR was 1.4. VBG was unremarkable. CMP showed creatinine of 2.89 which is close to his baseline. Total bili was 2.90, bilirubin was 1.56. AST was 43, ALT 21, ALP H209, ammonia 300, troponin 0.015 Past Medical History Past Medical History (Chronic Problems): Chronic Problems (Last Reviewed 10/11/20 @ 10:52 by Liane Moreau) Acute on chronic renal failure (Chronic) Longstanding persistent atrial fibrillation (Chronic) Atherosclerotic heart disease of [place] coronary artery without angina pectoris (Chronic) Deafness in left ear (Chronic) Deficiency anemia (Chronic) Sleep apnea (Chronic) Kidney disease, chronic, stage III (moderate, EGFR 30-59 ml/min) (Chronic) Cirrhosis of liver (Chronic) IBS (irritable bowel syndrome) (Chronic) Hypertension (Chronic) Hepatitis B (Chronic) Hearing problem (Chronic) Frequent headaches (Chronic) Back problem (Chronic) Arthritis (Chronic) Ascites (Chronic) Benign essential hypertension (Chronic) CHF (congestive heart failure) (Chronic) VTE (venous thromboembolism) (Chronic) Cardiomyopathy (Chronic) CAD (coronary artery disease) (Chronic) Long-term use of high-risk medication (Chronic) Obesity (BMI 30-39.9) (Chronic) Valvular heart disease (Chronic) Restrictive airway disease (Chronic) HLD (hyperlipidemia) (Chronic) Non-ischemic cardiomyopathy (Chronic) PAF (paroxysmal atrial fibrillation) (Chronic) DCCV in August 2017; Erectile dysfunction (Chronic) Obesity (BMI 30-39.9) (Chronic) AZID (obstructive sleep apnea) (Chronic) DVT (deep venous thrombosis) (Chronic) Medical History: Medical History (Last Reviewed 10/11/20 @ 10:52 by Liane Moreau) Atherosclerotic heart disease of [place] coronary artery without angina pectoris (Chronic) I25.10 Deafness in left ear (Chronic) H91.92 Deficiency anemia (Chronic) D53.9 Sleep apnea (Chronic) G47.30 Kidney disease, chronic, stage III (moderate, EGFR 30-59 ml/min) (Chronic) N18.3 Cirrhosis of liver (Chronic) K74.60 IBS (irritable bowel syndrome) (Chronic) K58.9 Hypertension (Chronic) I10 Hepatitis B (Chronic) B19.10 Hearing problem (Chronic) H91.90 Frequent headaches (Chronic) R51 Back problem (Chronic) M53.9 Arthritis (Chronic) M19.90 Non-ischemic cardiomyopathy (Chronic) I42.8 PAF (paroxysmal atrial fibrillation) (Chronic) I48.0 DCCV in August 2017; Erectile dysfunction (Chronic) N52.9 Obesity (BMI 30-39.9) (Chronic) E66.9 ZAID (obstructive sleep apnea) (Chronic) G47.33 DVT (deep venous thrombosis) (Chronic) I82.409 History of cardioversion (Inactive) Onset Date: ~08/2017 Z98.890 Allergies cefuroxime axetil [From Ceftin] Allergy (Verified 10/12/20 04:32) Rash hydrocodone bitartrate [From Vicodin] Allergy (Verified 10/12/20 04:32) Rash Penicillins Allergy (Verified 10/12/20 04:32) Hives DIFFICULTY BREATHING carvedilol [From Coreg] Adverse Reaction (Verified 10/12/20 04:32) black out lisinopril Adverse Reaction (Verified 10/12/20 04:32) cough Home Medications: Ambulatory Orders Medication Instructions Recorded Ashley Austin See Rx Instructions .ROUTE 09/22/19 .MEDSUPPLY #1 ea metoprolol tartrate 100 mg tablet 100 mg PO BID #180 tab 10/18/19 potassium chloride 10 mEq 20 meq PO BID #120 cap 12/15/19 capsule,extended release spironolactone 25 mg tablet 12.5 mg PO BID #90 tab 03/28/20 torsemide 20 mg tablet 20 mg PO BID tab 05/01/20 Pantoprazole Sodium [Protonix] 40 mg PO DAILY 08/21/20 Levofloxacin [Levaquin] 750 mg PO DAILY #6 tab 09/28/20 oxycodone-acetaminophen 5 mg-325 1 tab PO Q6H PRN PRN 10/11/20 mg tablet Amiodarone HCl [Pacerone] 100 mg PO DAILY 10/12/20 Surgical History: Surgical History (Last Reviewed 10/11/20 @ 10:52 by Liane Moreau) History of detached retina repair (Resolved) Z98.890, Z86.69 Rt eye - 2003 History of left inguinal hernia repair (Resolved) Z98.890, Z87.19 1989 & 2008 History of hemorrhoids (Resolved) Z87.19 2015 History of cataract surgery (Resolved) Z98.49 Both eyes - 1989 history lesion lip repair (Resolved) 2010 Surgical History: cataract, - - Detached retinal repair, left inguinal hernia. Psychiatric History: No pertinent psych hx Lives: Spouse/ Significant Other Smoking Status: Never smoker Alcohol: None Drugs: None - *Family History Maternal Family History: Family History (Last Reviewed 10/11/20 @ 10:53 by Liane Moreau) Mother CAD (coronary artery disease) Heart disease Hypertension Respiratory disease Father Bowel disease Depression Respiratory disease H/O ulcer disease History Items: Heart Disease Paternal Family History: Family History (Last Reviewed 10/11/20 @ 10:53 by Liane Moreau) Mother CAD (coronary artery disease) Heart disease Hypertension Respiratory disease Father Bowel disease Depression Respiratory disease H/O ulcer disease History Items: Cancer, Heart Disease, Pulmonary Disease Review of Systems Unable to obtain accurate/complete ROS d/t: Patient is confused, oriented only to self VTE Information - Inpt Only VTE Present on Admission: No VTE Pharm Prophylaxis ordered?: Yes Patient Problems: Active and Suspected Problems (Last Reviewed 10/11/20 @ 10:52 by Liane Moreau) Hepatic encephalopathy (Acute) Hypoxia (Acute) - Physical Exam Vitals/I&O's: Vital Signs Temp Pulse Resp BP Pulse Ox 97.9 F 89 19 H 116/78 95 10/12/20 04:27 10/12/20 05:15 10/12/20 05:15 10/12/20 05:15 10/12/20 05:15 Oxygen Delivery Method Room Air Weight: 129.1 kg Body Mass Index (BMI) 38.6 Finger Stick Blood Glucose 149 General: Alert, Cooperative, Confused - oriented to self, - - not jaundiced HEENT: Atraumatic, PERRLA, EOMI, Normocephalic Oral: Moist Mucosa Neck: Supple Lungs: Clear to auscultation, Normal air movement Cardiovascular: Regular rate, Regular Rhythm, Normal S1, Normal S2, No murmurs Abdomen: Bowel Sounds Present, Soft, Non Tender, Non-Distended, No Hepato- splenomegaly Extremities: Edema - bilateral pedal edema +4 Skin: No rashes Musculoskeletal: No Tenderness to Palpation of Joints or Extremities Neurological: - - unable to do a full assessment on account of lethargy Psych/Mental Status: Normal Affect, Appropriate Laboratory Results 10/12/20 04:42: WBC 4.2 L, RBC 3.85 L, Hgb 12.8 L, Hct 38.7 L, MCV 100.5 H, MCH 33.2 H, MCHC 33.1, RDW Std Deviation 57.4 H, RDW Coeff of [place] 15.7 H, Plt Count 104 L, MPV 10.9, Immature Gran % (Auto) 0.700, Neut % (Auto) 74.1 H, Lymph % (Auto) 16.0 L, [place] % (Auto) 8.8, Eos % (Auto) 0.2, Baso % (Auto) 0.2, Absolute Neuts (auto) 3.1, Absolute Lymphs (auto) 0.67 L, Nucleated RBC % 0 10/12/20 04:42: PT 16.3 H, INR 1.4, APTT 33.3 10/12/20 04:42: Sodium 138, Potassium 4.7, Chloride 106, Carbon Dioxide 26.0, Anion Gap 6, BUN 70 H, Creatinine 2.89 H, Estim Creat Clear Calc 28.72, Est GFR (MDRD) Af Amer 29 L, Est GFR (MDRD) Non-Af 24 L, BUN/Creatinine Ratio 24.2 H, Glucose 93, Calcium 7.9 L, Total Bilirubin 2.90 H, Direct Bilirubin 1.56 H, AST 43 H, ALT 21, Alkaline Phosphatase 209 H, Troponin I < 0.015, Total Protein 6.3 L, Albumin 2.3 L, Globulin 4.0 10/12/20 04:42: Ammonia 300.0 H 10/12/20 04:45: Urine Color Yellow, Urine Clarity Clear, Urine pH 6.0, Ur Specific [place] 1.015, Urine Protein Negative, Urine Glucose (UA) Normal, Urine Ketones Negative, Urine Occult Blood Negative, Urine Nitrite Negative, Urine Bilirubin Negative, Urine Urobilinogen Normal, Ur Leukocyte Esterase Negative, Urine RBC 0 SEEN, Urine WBC 0 SEEN, Ur Squamous Epith Cells 0 SEEN, Urine Bacteria 0 SEEN, Urine Mucus 0 SEEN 10/12/20 04:53: Specimen Type AYE, VBG pH 7.40, VBG pO2 31, VBG HCO3 25, VBG Total CO2 26, VBG O2 Sat (Calc) 59, VBG Base Excess 0, POC Mix VBG pCO2 Pt Tmp 40.0 L, O2 Delivery Device Room Air Current Medications Labetalol HCl (Labetalol (Prefilled) 20 Mg/4 Ml) 20 mg IV X1 PRN PRN Reason: BLOOD PRESSURE Assessment/Plan All Active Problems (Last Reviewed 10/11/20 @ 10:52 by Liane Moreau) Hepatic encephalopathy (Acute) Neutropenia (Acute) Thrombocytopenia (Acute) 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 Acute hepatic encephalopathy, doubt acute stroke History of chronic hepatitis B with cirrhosis Admitting ammonia was 300 Liver function test is about his baseline Status post NG tube; continue lactulose, rifaximin Trend ammonia, ultrasound of liver 2. Chronic diastolic CHF, EF 55%, patient appears fluid overloaded We will stop torsemide and start on Lasix, trend blood work 3. Chronic atrial fibrillation/hypertension/hyperlipidemia/obesity, all remain stable 4. CKD stage 4, Cr remains at baseline 5. DVT PPx- Heparin SC Inpatient E&M: 50255 Init Hosp L3
[2020-10-12] MEDS: Oxymetazoline 0.05% 1 SPRAY SPRAY.BTL 2 SPRAY NASAL (06:10)
[2020-10-12] MEDS: Lactulose 20 GM/30 ML UDC NG ×3 (06:27→20:26)
--- NOTE | 2020-10-12 07:33 | US_ITS ---
STUDY: ABDOMINAL ULTRASOUND - RIGHT UPPER QUADRANT REASON FOR VISIT: Male, 65 years old ENCEPHALOPATHY TECHNIQUE: Ultrasound evaluation of the right upper quadrant was performed with real-time and static barker-scale imaging. TECHNICAL QUALITY: Limited. Examination limited due to obesity. COMPARISON: None. FINDINGS: Liver: The liver measures 16 cm. There is a heterogeneous echogenicity of the liver. The bile ducts are within normal limits. There is hepatic color flow. The direction of portal flow is hepatopetal. There is no demonstrated mass lesion. Gallbladder: Normal distended gallbladder. The gallbladder wall is thickened and measures 5.3 mm. There is a negative sonographic Herrera''s sign. There is no pericholecystic fluid. There are no gallstones. Common Bile Duct (C.B.D.): The common bile duct measures 5 mm. Pancreas: There is nonvisualization of the pancreas due to overlying bowel gas. Right Kidney: Normal size of the right kidney. The right kidney measures 10.7 cm x 4.7 cm x 5.4 cm. Increased cortical echotexture suggestive of medical renal disease. The right cortex measures 1.2 cm. There is no demonstrated renal mass or cyst. There is no right hydronephrosis. US/Liver IMPRESSION: Heterogeneous appearance of the liver. Thickened gallbladder wall. No definite gallstones are seen. Electronically Signed: Duke Duran, at 11:17 EST , Service support ,
--- NOTE | 2020-10-12 07:33 | ECHOCS_ITS ---
Reason For Study: TIA/CVA Procedure This was a 2D Doppler, Color Flow transthoracic echocardiogram. The study was technically difficult. Contrast injection was performed. Exam performed portable in patient room. Left Ventricle Normal LV size. Moderate concentric left ventricular hypertrophy. Left ventricular systolic function is normal. The estimated ejection fraction is 65 %. Stage 1 diastolic dysfunction. No regional wall motion abnormalities noted. Right Ventricle Normal RV size. Normal systolic function. Atria Normal left atrium. Normal right atrium. Mitral Valve Normal mitral valve. Tricuspid Valve Normal tricuspid valve. Aortic Valve Trisinus/trileaflet aortic valve. Mild focal aortic valve calcification. Pulmonic Valve Normal pulmonic valve. Great Vessels Normal aortic root. The pulmonary artery is normal size. Normal inferior vena cava. Pericardium/Pleural No pericardial effusion. Medication Diluted definity 4.0ml given slow IV push to enhance endocardial definition. MMode/2D Measurements & Calculations LVIDd: 5.0 cm IVSd: 1.5 cm Ao root diam: 3.8 cm LVIDs: 3.9 cm LVPWd: 1.3 cm FS: 21.6 % LA dimension(2D): 4.9 cm Doppler Measurements & Calculations MV E max suleiman: 57.9 cm/sec Lat Peak E' Suleiman: 9.6 cm/sec Med Peak E' Suleiman: 5.6 cm/sec MV A max suleiman: 108.4 cm/sec E/E' lat: 6.0 E/E' med: 10.4 MV E/A: 0.53 Ao V2 max: 182.7 cm/sec LV V1 max: 126.7 cm/sec PA V2 max: 135.1 cm/sec Ao max P.4 mmHg LV V1 max P.4 mmHg Interpretation Summary Normal LV size. Moderate concentric left ventricular hypertrophy. Left ventricular systolic function is normal. The estimated ejection fraction is 65 %. Stage 1 diastolic dysfunction. Contrast injection was performed. Ordering Physician: Charity Santos Referring Physician: Donnie Vo Performed By: Ariana Rollins, EMMA, RVT
[2020-10-12] MEDS: rifAXIMin 550 MG Tablet NG (10:43)
[2020-10-12] MEDS: Aspirin 81 MG TAB.CHEW NG (10:44)
[2020-10-12] MEDS: Furosemide 40 MG/4 ML Vial IV ×2 (10:44→17:47)
[2020-10-12] MEDS: Heparin Injection (Vial) 5,000 UNIT/ML VIAL 5000 UNIT SC ×3 (10:58→20:27)
--- NOTE | 2020-10-12 14:22 | CASEMGMT ---
RN CM Assessment Note Introduced role of CM to patient's . Patient is currently unable to participate in assessment due to confusion Demographics, PCP verified. states the patient lives independently at home. This past week began using a walker due to weakness. Was able to complete own ADL's. -Pt had recent fall with compression fracture. Pt having more difficulty since this event. Per , pt was not going to therapy until MRI of back was completed. This is being precertified, but has not been approved by insurance yet. Presentation: confusion, lethargy. Diagnosis: hepatic encephalopathy PCP: Dr. Maravilla Specialists: Dr. Castillo, Dr. Talbot-firearms specialist. Insurance: [employer] [facility] Preferred Pharmacy: [facility] Prescription Benefit: yes LNOK: Stephie Brandon Living Arrangements: Living in one story home with his . Home has a ramp as uses wheelchair. states patient was independent with ADL's, but more difficulty after back fracture. Was still able to complete self care, but used a walker recently. Tranportation: drives, but son in law has been driving DME: Walker, cpap (does not use) HHC: none SNF: [facility] Patient DC Goals: Home DC Plan: anticipate home on discharge. If patient is to discharge on Rifampin- will need to check if this is covered by insurance and cost. CM available for discharge planning coordination. Contact CM for any concerns/needs that may arise. Lindsay PRO RN ACM
--- NOTE | 2020-10-12 14:48 | CASEMGMT ---
RN CM Assessment Note Introduced role of CM to patient's . Patient is currently unable to participate in assessment due to confusion Demographics, PCP verified. states the patient lives independently at home. This past week began using a walker due to weakness. Was able to complete own ADL's. -Pt had recent fall with compression fracture. Pt having more difficulty since this event. Per , pt was not going to therapy until MRI of back was completed. This is being precertified, but has not been approved by insurance yet. Presentation: confusion, lethargy. Diagnosis: hepatic encephalopathy PCP: Dr. Maravilla Specialists: Dr. Castillo, Dr. Talbot-client renewal specialist. Insurance: [employer] [facility] Preferred Pharmacy: [facility] Prescription Benefit: yes LNOK: Stephie Brandon Living Arrangements: Living in one story home with his . Home has a ramp as uses wheelchair. states patient was independent with ADL's, but more difficulty after back fracture. Was still able to complete self care, but used a walker recently. Tranportation: drives, but son in law has been driving DME: Walker, cpap (does not use) HHC: none SNF: [facility] Patient DC Goals: Home DC Plan: anticipate home on discharge. If patient is to discharge on Rifaxamin- will need to check if this is covered by insurance and cost. CM available for discharge planning coordination. Contact CM for any concerns/needs that may arise. Lindsay PRO RN ACM
--- NOTE | 2020-10-12 16:20 | PCM.CON.CC ---
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 Status: Acute (4) Pulmonary fibrosis Status: Chronic (5) Longstanding persistent atrial fibrillation Status: Chronic (6) Atherosclerotic heart disease of [place] coronary artery without angina pectoris Status: Chronic (7) Kidney disease, chronic, stage III (moderate, EGFR 30-59 ml/min) Status: Chronic (8) Cirrhosis of liver Status: Chronic (9) Hepatitis B Status: Chronic (10) Arthritis Status: Chronic (11) Benign essential hypertension Status: Chronic (12) CHF (congestive heart failure) Status: Chronic Qualifiers: Heart failure type: diastolic Heart failure chronicity: chronic Qualified Code(s): I50.32 - Chronic diastolic (congestive) heart failure (13) CAD (coronary artery disease) Status: Chronic Qualifiers: Coronary Disease-Associated Artery/Lesion type: [place] artery [place] vs. transplanted heart: [place] heart Associated angina: without angina Qualified Code(s): I25.10 - Atherosclerotic heart disease of [place] coronary artery without angina pectoris (14) Obesity (BMI 30-39.9) Status: Chronic (15) HLD (hyperlipidemia) Status: Chronic Qualifiers: Hyperlipidemia type: unspecified Qualified Code(s): E78.5 - Hyperlipidemia, unspecified (16) Non-ischemic cardiomyopathy Status: Chronic (17) PAF (paroxysmal atrial fibrillation) Status: Chronic Comment: DCCV in August 2017; (18) Obesity (BMI 30-39.9) Status: Chronic (19) ZAID (obstructive sleep apnea) Status: Chronic Reason for Consult Date of Consultation: 10/12/20 Reason for Consultation: Encephalopathy History of Present Illness: The patient is a 65 year old M, with past medical history listed below, who presented to [facility] on 10/12/2020 secondary to a 24-hour history of decreased ambulation. Patient reportedly had the squad called because he was unable to walk. There was some concern of an acute CVA and his last known well was at 10:30 AM on October 11. Patient reportedly was not a very good historian, but was able to deny headache, visual disturbance, nausea or vomiting. In the ER ended, but reportedly satting well at 98% on room air. Patient's initial NIH score was 11. CT of the head showed no acute abnormality. Patient did have a total occlusion of the left vertebral artery with collateralization. Neurology was consulted. Laboratory work-up had showed a lymphopenia at 4.2, thrombocytopenia at 104, elevated INR at 1.4, BUN 70, creatinine 2.9 with elevated liver enzymes and an ammonia level of 300. UA was unremarkable and VBG was within normal limits. After review of the imaging and noted delayed presentation, it was decided that the patient could stay at [facility] for evaluation of hepatic encephalopathy. No further information is available at this time. Patient will barely open his eyes to a sternal rub. Patient does localize to noxious stimulus. No family is currently available to provide additional information. Past Medical History Past Medical History (Chronic Problems): Chronic Problems (Last Updated 10/12/20 @ 11:[address] Darline Turcios MD) Thrombocytopenia (Chronic) Pulmonary fibrosis (Chronic) Longstanding persistent atrial fibrillation (Chronic) Atherosclerotic heart disease of [place] coronary artery without angina pectoris (Chronic) Kidney disease, chronic, stage III (moderate, EGFR 30-59 ml/min) (Chronic) Cirrhosis of liver (Chronic) IBS (irritable bowel syndrome) (Chronic) Hepatitis B (Chronic) Arthritis (Chronic) Ascites (Chronic) Benign essential hypertension (Chronic) CHF (congestive heart failure) (Chronic) VTE (venous thromboembolism) (Chronic) CAD (coronary artery disease) (Chronic) Long-term use of high-risk medication (Chronic) Obesity (BMI 30-39.9) (Chronic) Valvular heart disease (Chronic) Restrictive airway disease (Chronic) HLD (hyperlipidemia) (Chronic) Non-ischemic cardiomyopathy (Chronic) PAF (paroxysmal atrial fibrillation) (Chronic) [facility] in August 2017; Obesity (BMI 30-39.9) (Chronic) ZAID (obstructive sleep apnea) (Chronic) DVT (deep venous thrombosis) (Chronic) Medical History: Medical History (Last Updated 10/12/20 @ 11:[address] Darline Turcios MD) Atherosclerotic heart disease of [place] coronary artery without angina pectoris (Chronic) I25.10 Kidney disease, chronic, stage III (moderate, EGFR 30-59 ml/min) (Chronic) N18.3 Cirrhosis of liver (Chronic) K74.60 IBS (irritable bowel syndrome) (Chronic) K58.9 Hepatitis B (Chronic) B19.10 Arthritis (Chronic) M19.90 Non-ischemic cardiomyopathy (Chronic) I42.8 PAF (paroxysmal atrial fibrillation) (Chronic) I48.0 DCCV in August 2017; Obesity (BMI 30-39.9) (Chronic) E66.9 ZAID (obstructive sleep apnea) (Chronic) G47.33 DVT (deep venous thrombosis) (Chronic) I82.409 Erectile dysfunction (Inactive) N52.9 History of cardioversion (Inactive) Onset Date: ~08/2017 Z98.890 Allergies cefuroxime axetil [From Ceftin] Allergy (Verified 10/12/20 04:32) Rash hydrocodone bitartrate [From Vicodin] Allergy (Verified 10/12/20 04:32) Rash Penicillins Allergy (Verified 10/12/20 04:32) Hives DIFFICULTY BREATHING carvedilol [From Coreg] Adverse Reaction (Verified 10/12/20 04:32) black out lisinopril Adverse Reaction (Verified 10/12/20 04:32) cough Home Medications: Ambulatory Orders Medication Instructions Recorded Handicap Placard See Rx Instructions .ROUTE 09/22/19 .MEDSUPPLY #1 ea metoprolol tartrate 100 mg tablet 100 mg PO BID #180 tab 10/18/19 potassium chloride 10 mEq 20 meq PO BID #120 cap 12/15/19 capsule,extended release spironolactone 25 mg tablet 12.5 mg PO BID #90 tab 03/28/20 torsemide 20 mg tablet 20 mg PO BID tab 05/01/20 Pantoprazole Sodium [Protonix] 40 mg PO DAILY 08/21/20 Levofloxacin [Levaquin] 750 mg PO DAILY #6 tab 09/28/20 oxycodone-acetaminophen 5 mg-325 1 tab PO Q6H PRN PRN 10/11/20 mg tablet Amiodarone HCl [Pacerone] 100 mg PO DAILY 10/12/20 Surgical History: Surgical History (Last Updated 10/12/20 @ 11:[address] Darline Turcios MD) History of cataract surgery (Inactive) Z98.49 Both eyes - 1989 History of detached retina repair (Inactive) Z98.890, Z86.69 Rt eye - 2003 History of hemorrhoids (Inactive) Z87.19 2014 History of left inguinal hernia repair (Inactive) Z98.890, Z87.19 1989 & 2008 Surgical History: cataract, - - Detached retinal repair, left inguinal hernia. Psychiatric History: No pertinent psych hx Lives: Spouse/ Significant Other Smoking Status: Never smoker Alcohol: None Drugs: None - *Family History Maternal Family History: Family History (Last Reviewed 10/11/20 @ 10:53 by Liane Moreau) Mother CAD (coronary artery disease) Heart disease Hypertension Respiratory disease Father Bowel disease Depression Respiratory disease H/O ulcer disease History Items: Heart Disease Paternal Family History: Family History (Last Reviewed 10/11/20 @ 10:53 by Liane Moreau) Mother CAD (coronary artery disease) Heart disease Hypertension Respiratory disease Father Bowel disease Depression Respiratory disease H/O ulcer disease History Items: Cancer, Heart Disease, Pulmonary Disease Review of Systems Unable to obtain accurate/complete ROS d/t: Mental status Patient Problems: Active and Suspected Problems (Last Updated 10/12/20 @ 11:[address] Darline Turcios MD) Hepatic encephalopathy (Acute) Objective: All imaging was personally reviewed. Agree with formal interpretation. Also reviewed outpatient notes from Dr. Diop indicating patient has been noncompliant with ZAID therapy. Previous pulmonary function test was within normal limits. Echocardiogram showed an EF of 65% with stage I diastolic dysfunction and reported normal inferior vena cava and only focal valvular abnormalities. - Physical Exam Vitals/I&O's: Vital Signs Temp Pulse Resp BP Pulse Ox 36.1 C L 108 H 23 H 123/71 H 98 10/12/20 12:00 10/12/20 14:00 10/12/20 14:00 10/12/20 14:00 10/12/20 14:43 Oxygen Delivery Method Room Air Weight: 125.872 kg Body Mass Index (BMI) 37.6 Finger Stick Blood Glucose 149 Intake and Output for Last 24 Hours 10/10/20 10/11/20 10/12/20 23:59 23:59 23:59 Intake Total 80 / 80 Output Total 600 / 600 Balance -520 / -520 General: Disoriented, Lethargic, Non-Cooperative, - - Obese. HEENT: Atraumatic, PERRLA, EOMI, Normocephalic, - - No nystagmus appreciated Oral: Moist Mucosa, No Gingival or Mucosal Lesions/ Ulcerations Neck: Supple, No JVD, No Nodes, Trachea Midline Lungs: No rhonchi, No wheeze, No rales, Diminished Cardiovascular: Normal S1, Normal S2, No murmurs, No rub noted, No Gallop, Tachycardic Abdomen: Bowel Sounds Present, Soft, Non Tender, Non-Distended, Obese Extremities: No clubbing, No cyanosis, Edema - Lower extremities with Rell wraps Skin: No rashes, No breakdown Musculoskeletal: No Tenderness to Palpation of Joints or Extremities Lymphatic: No Cervical, Supraclavicular, or Inguinal Adenopathy Neurological: - - Pupils equal round and reactive to light. Positive gag and cough reflexes. Localizes to painful stimuli, but does not follow commands. Little spontaneous movement appreciated. Psych/Mental Status: Flat Affect Laboratory Results 10/12/20 04:42: WBC 4.2 L, RBC 3.85 L, Hgb 12.8 L, Hct 38.7 L, MCV 100.5 H, MCH 33.2 H, MCHC 33.1, RDW Std Deviation 57.4 H, RDW Coeff of [place] 15.7 H, Plt Count 104 L, MPV 10.9, Immature Gran % (Auto) 0.700, Neut % (Auto) 74.1 H, Lymph % (Auto) 16.0 L, [place] % (Auto) 8.8, Eos % (Auto) 0.2, Baso % (Auto) 0.2, Absolute Neuts (auto) 3.1, Absolute Lymphs (auto) 0.67 L, Nucleated RBC % 0 10/12/20 04:42: PT 16.3 H, INR 1.4, APTT 33.3 10/12/20 04:42: Sodium 138, Potassium 4.7, Chloride 106, Carbon Dioxide 26.0, Anion Gap 6, BUN 70 H, Creatinine 2.89 H, Estim Creat Clear Calc 28.72, Est GFR (MDRD) Af Amer 29 L, Est GFR (MDRD) Non-Af 24 L, BUN/Creatinine Ratio 24.2 H, Glucose 93, Calcium 7.9 L, Total Bilirubin 2.90 H, Direct Bilirubin 1.56 H, AST 43 H, ALT 21, Alkaline Phosphatase 209 H, Troponin I < 0.015, Total Protein 6.3 L, Albumin 2.3 L, Globulin 4.0 10/12/20 04:42: Ammonia 300.0 H 10/12/20 04:45: Urine Color Yellow, Urine Clarity Clear, Urine pH 6.0, Ur Specific [place] 1.015, Urine Protein Negative, Urine Glucose (UA) Normal, Urine Ketones Negative, Urine Occult Blood Negative, Urine Nitrite Negative, Urine Bilirubin Negative, Urine Urobilinogen Normal, Ur Leukocyte Esterase Negative, Urine RBC 0 SEEN, Urine WBC 0 SEEN, Ur Squamous Epith Cells 0 SEEN, Urine Bacteria 0 SEEN, Urine Mucus 0 SEEN 10/12/20 04:53: Specimen Type AYE, VBG pH 7.40, VBG pO2 31, VBG HCO3 25, VBG Total CO2 26, VBG O2 Sat (Calc) 59, VBG Base Excess 0, POC Mix VBG pCO2 Pt Tmp 40.0 L, O2 Delivery Device Room Air Current Medications Albuterol Sulfate (Albuterol 2.5 Mg/3 Ml Vial.Neb.) 2.5 mg INHALATION Q2H PRN PRN PRN Reason: SOB/Wheezing Aspirin (Aspirin 81 Mg Tab.Chew) 81 mg NG DAILY@0800 [facility] Last Admin: 10/12/20 10:44 Dose: 81 mg Documented by: Furosemide (Furosemide 40 Mg/4 Ml Vial) 40 mg IV BID@1000,1800 [facility] Last Admin: 10/12/20 10:44 Dose: 40 mg Documented by: Heparin Sodium (Porcine) (Heparin Injection (Vial) 5,000 Unit/Ml Vial) 5,000 unit SC Q8 [facility] Last Admin: 10/12/20 10:58 Dose: 5,000 unit Documented by: Hydralazine HCl (Hydralazine 20 Mg/Ml Vial) 5 mg IV Q30M PRN PRN Reason: to maintain BP goals Sodium Chloride () 250 mls @ 15 mls/hr IV .[id number] PRN PRN Reason: Saline Flush Sodium Chloride () 250 mls @ 15 mls/hr IV .[id number] PRN PRN Reason: Additional IVPB Infusion Labetalol HCl (Labetalol (Prefilled) 20 Mg/4 Ml) 10 - 20 mg IV Q10M PRN PRN PRN Reason: to Maintain BP Goals Lactulose (Lactulose 20 Gm/30 Ml Udc) 20 gm NG BID [facility] Last Admin: 10/12/20 10:43 Dose: 20 gm Documented by: Ondansetron HCl (Ondansetron 4 Mg/2 Ml Vial) 4 mg IV Q8H PRN PRN PRN Reason: NAUSEA/VOMITING Rifaximin (Rifaximin 550 Mg Tablet) 550 mg NG BID [facility] Last Admin: 10/12/20 10:43 Dose: 550 mg Documented by: Sodium Chloride (0.9% Saline Lock 10 Ml Syringe) 10 - 40 ml IV UD PRN PRN Reason: SALINE FLUSH Clinical Impression(s) from Imaging Studies Brain CT 10/12/20 04:12 IMPRESSION: No acute intracranial abnormality. If there is a high clinical suspicion of acute infarction consider MRI. Electronically Signed: Christopher Mays MD at 4:36 EST , Service support , ADDENDUM: 10/12/20 0510 IMPRESSION: No acute intracranial abnormality. If there is a high clinical suspicion of acute infarction consider MRI. N.B. : The above information has been verbally conveyed by Christopher Mays MD to Dr. Mark Valdez MD, on 10/12/2020 05:03:20 (ET). Electronically Signed: Christopher Mays MD at 4:36 EST , Service support , Chest X-Ray 10/12/20 04:12 IMPRESSION: Right midlung subsegmental atelectasis versus pneumonia. Otherwise no significant change in findings of chronic interstitial lung disease. Electronically Signed: Christopher Mays MD at 5:26 EST , Service support , Head/Neck CTA 10/12/20 04:13 IMPRESSION: Hypoplastic or occluded distal left vertebral artery. Atherosclerotic calcification of the distal right vertebral artery. Otherwise normal [place]. Atherosclerotic calcification of the carotid bulb and proximal internal carotid arteries without a high-grade stenosis. Otherwise normal carotid arteries. N.B. : The above information has been verbally conveyed by Christopher Mays MD to Dr. Mark Valdez MD, on 10/12/2020 04:40:05 (ET). Electronically Signed: Christopher Mays MD at 5:03 EST , Service support , ADDENDUM: 10/12/20 0510 IMPRESSION: Hypoplastic or occluded distal left vertebral artery. Atherosclerotic calcification of the distal right vertebral artery. Otherwise normal [place]. Atherosclerotic calcification of the carotid bulb and proximal internal carotid arteries without a high-grade stenosis. Otherwise normal carotid arteries. N.B. : The above information has been verbally conveyed by Christopher Mays MD to Dr. Mark Valdez MD, on 10/12/2020 04:40:05 (ET). Electronically Signed: Christopher Mays MD at 5:03 EST , Service support , KUB X-Ray 10/12/20 05:24 IMPRESSION: Nasogastric tube tip in gastric fundus. Mildly dilated loops of small bowel left abdomen which could represent an early small bowel obstruction versus an adynamic ileus. Electronically Signed: Christopher Mays MD at 6:28 EST , Service support , Liver Ultrasound 10/12/20 07:33 IMPRESSION: Heterogeneous appearance of the liver. Thickened gallbladder wall. No definite gallstones are seen. Electronically Signed: Duke Duran, at 11:17 EST , Service support , Assessment/Plan Active and Suspected Problems (Last Updated 10/12/20 @ 11:[address] Darline Turcios MD) Hepatic encephalopathy (Acute) RECOMMENDATIONS: 1. Titrate lactulose to 2-3 bowel movements per day 2. Continue rifaximin 3. Obtain ABG 4. Monitor NIH is every 4 hours IMPRESSIONS: 1. 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 Admitting ammonia was elevated at 300. Patient has had an NG placed and is receiving rifaximin and lactulose. Lactulose should be titrated to 2-3 bowel movements per day. Continue to monitor neuro status. No signs or symptoms of seizure reported. Blood glucose has been within normal limits. Patient does have a blocked vertebral artery, but also appears to have collateralization indicating chronicity. Monitor in intensive care unit. Patient appears to be protecting his airway at this time 2. Chronic diastolic CHF/chronic A. fib Patient does appear to be slightly volume overloaded. Patient has been transition to Lasix therapy. We will need to watch electrolytes closely. Patient is currently rate controlled. 3. Obesity/hypertension/hyperlipidemia/CKD stage IV/poor history/ZAID Complicates care, management, recovery and prognosis. Okay to continue with baseline medications. Unclear if patient would be able to protect his airway with positive airway pressure, so we will hold off on AVAPS for now. Inpatient E&M: 17714 Init Hosp L3
[2020-10-12 17:05] LABS: Allen Test Positive; Base Excess 4 mmol/L (-2 to +2); Bicarbonate 26.1 mmol/L (22-26); Blood Gas Specimen Type ART; FI02 21; PO2 73 mmHG (75-100); SITE L Radial; SO2 96 % (95-99); Total Carbon Dioxide 27 mmol/L; pCO2 31.1 mmHg (35-45); pH 7.53 (7.35-7.45)
[2020-10-12] MEDS: Labetalol (Prefilled) 20 MG/4 ML IV (18:28)
[2020-10-12] MEDS: Racepinephrine HCl 0.5 ML VIAL.NEB. INHALATION (20:13)
--- NOTE | 2020-10-12 20:17 | CPS ---
Pharmacist called about caution caution screen pertaining to possible medication interaction. Pharmacist stated that is safe to give raceimic epi at this time. RN notified and will monitor pt
[2020-10-12] MEDS: 0.9% Saline Lock 10 ML Syringe IV ×2 (20:31→23:32)
[2020-10-12] MEDS: hydrALAZINE 20 MG/ML Vial 5 MG IV (23:28)
[2020-10-12] MEDS: Polyethylene Glycol 3350 17 GM PACKET PO (23:31)
[2020-10-13] VITALS (17 sets, daily range): BP systolic 102–171; BP diastolic 60–86; PULSE 96–113; RESP 33–40; TEMP 36.1–36.6; O2SAT 90–94
[2020-10-13 00:24] LABS: ALB/GLOB Ratio 0.6 RATIO (0.9-2.4); AST(SGOT) 49 U/L (15-37); Alanine Aminotransfer ALT/SGPT 23 U/L (16-61); Albumin, Serum 2.5 g/dL (3.2-5.0); Alkaline Phosphatase 223 U/L (45-117); Anion Gap 9 (5-15); BUN 65 mg/dL (7-18); BUN/Creat Ratio 19.6 RATIO (10-20); Calcium,Total 8.4 mg/dL (8.5-10.1); Chloride 110 mmol/L (98-107); Creatinine, Serum 3.32 mg/dL (0.70-1.30); EST Glomerular Filtration Rate 20 mL/min (>60); Est Glom Filt Rate - Afr Amer 24 mL/min (>60); Globulin 4.4 g/dL (2.2-4.2); Glucose 117 mg/dL (74-106); Protein, Total 6.9 g/dL (6.4-8.2); Sodium Level 143 mmol/L (136-145)
--- NOTE | 2020-10-13 01:38 | PCM.PN.BLA ---
Progress Note Made aware that patient was progressively lethargic. Unable to be awoken. Repeat ammonia level was 448; increased from 300 Lactulose given since admission with one bowel movement today. MiraLAX x1 given with no bowel movement Patient reexamined at the bedside; severely encephalopathic, not responsive to calls or sternal rub, no eye or motor movement GCS 315 I called patient's and updated her of his progressive decline. She stated that she had discussed this with the patient. He would not want to be kept on artificial life support. He would want to be kept comfortable. She chose DNR CC I discussed with her the goals of care. I told her that the primary team can reassess and get back to help. Patient continues slow to improve and ammonia CT is the same or worsens, would recommend hospice. She was agreeable to that. Time spent discussing CODE STATUS and goals of care- 18 minutes STROKE Vital Signs/Narrative: Vital Signs Temp Pulse Resp BP BP Pulse Ox 10/13/20 01:00 97.6 F L 107 H 33 H 156/86 H 93 10/13/20 00:00 97.6 F L 109 H 33 H 171/81 H 93 10/12/20 23:56 110 H 10/12/20 23:28 109 H 177/111 H 10/12/20 23:00 110 H 32 H 177/88 H 93 10/12/20 22:00 112 H 34 H 175/98 H 93 Procedures: [id number] Advncd Care Plan 30 Min
[2020-10-13] MEDS: Dextrose 5%/0.9% NaCl 1,000 ML 75 ML IV (02:47)
--- NOTE | 2020-10-13 03:21 | NURSING ---
Administered ordered Soap Suds Enema with little results. Digitally examined pt for possible hard stool in rectum, no obstruction palpable.
[2020-10-13 04:22] LABS: Absolute Lymphocyte Count 0.87 X10^3/uL (0.83-4.51); Absolute Neutrophil Count 9.2 X10^3/uL (2.0-7.7); Basophil# 0.02 X10^3/uL; Basophil% 0.2 % (0-1); Eosinophil# 0.01 X10^3/uL; Eosinophils% 0.1 % (0-5); Hematocrit 42.2 % (40-54); Hemoglobin 13.7 g/dL (13.0-16.5); Lymphocyte # 0.87 X10^3/ul (4.0); Lymphocyte % 7.5 % (19-41); Mean Corp Hgb Conc 32.5 g/dL (32-36); Mean Corpuscular Hgb 33.2 pg (27.0-32.0); Mean Corpuscular Volume 102.2 fL (80-94); Mean Platelet Vol. 11.1 fl (6.2-12.0); Monocyte# 1.37 X10^3/uL; Monocyte% 11.9 % (0-10); NRBC Flagged by Analyzer 0 % (0-5); Neutrophil # 9.17 X10^3/uL (2.7-7.7); Neutrophil % 79.5 % (47-70); Platelet Count 136 K/mm3 (150-450); RBC Distribution Width CV 16.5 % (11.6-14.6); RBC Distribution Width SD 62.2 fl (35.1-43.9); Red Blood Count 4.13 M/mm3 (4.6-6.2); White Blood Count 11.5 K/mm3 (4.4-11.0)
[2020-10-13 04:40] LABS: ALB/GLOB Ratio 0.5 RATIO (0.9-2.4); AST(SGOT) 78 U/L (15-37); Alanine Aminotransfer ALT/SGPT 26 U/L (16-61); Albumin, Serum 2.4 g/dL (3.2-5.0); Alkaline Phosphatase 224 U/L (45-117); Anion Gap 13 (5-15); BUN 71 mg/dL (7-18); BUN/Creat Ratio 18.6 RATIO (10-20); Calcium,Total 8.5 mg/dL (8.5-10.1); Chloride 108 mmol/L (98-107); Cholesterol 103 mg/dL (200); Creatinine, Serum 3.81 mg/dL (0.70-1.30); EST Glomerular Filtration Rate 17 mL/min (>60); Est Glom Filt Rate - Afr Amer 21 mL/min (>60); Estimated Creatinine Clearance 21.78 ml/min; Globulin 4.5 g/dL (2.2-4.2); Glucose 106 mg/dL (74-106); High Density Lipoprotein 37 mg/dL; Potassium 5.8 mmol/L (3.5-5.1); Protein, Total 6.9 g/dL (6.4-8.2); Sodium Level 142 mmol/L (136-145); Triglycerides 93 mg/dL; Very Low Density Lipoprotein 19 mg/dL (5-40)
[2020-10-13] MEDS: Atropine Sulfate 1% 2 ml Bottle 4 DRP PO ×2 (07:42→10:26)
--- NOTE | 2020-10-13 08:22 | PN_ITS ---
Subjective: Patient remains unresponsive, but is protecting his airway at this time. ABG has shown adequate oxygenation and ventilation. There was some concerns of possible need for intubation overnight, so was contacted. Called personally this morning to discuss goals of therapy. states that they have had numerous conversations about his quality of life and states that he would not want to be intubated for any reason. Patient also reportedly states that he did not want to suffer anymore than I have to. Patient's is requesting hospice measures at this time. Objective: KUB is suggestive of possible small bowel obstruction General: Disoriented, Lethargic, Non-Cooperative, - - Periodic sleep apnea noted. HEENT: Atraumatic, PERRLA, EOMI, Normocephalic, - - NG in place Oral: No Gingival or Mucosal Lesions/ Ulcerations Neck: Supple, No JVD, No Nodes, Trachea Midline Lungs: Diminished, Rhonchi - Mostly upper airway referral Cardiovascular: Normal S1, Normal S2, No murmurs, No rub noted, No Gallop, Tachycardic Abdomen: Bowel Sounds Present, Soft, Non Tender, Distended - Slightly Extremities: No clubbing, No cyanosis, Edema Skin: - - No change from previous Musculoskeletal: No Tenderness to Palpation of Joints or Extremities Lymphatic: No Cervical, Supraclavicular, or Inguinal Adenopathy Neurological: - - Positive cough and gag reflex. Localizes to deep painful stimulus only. Psych/Mental Status: Flat Affect Vital Signs Temp Pulse Resp BP Pulse Ox 36.1 C L 96 39 H 135/72 H 92 10/13/20 07:00 10/13/20 07:00 10/13/20 07:00 10/13/20 07:00 10/13/20 07:00 Oxygen Flow Rate (L/min) 2 Oxygen Delivery Method Nasal Cannula Weight: 123.8 kg Body Mass Index (BMI) 37.6 Finger Stick Blood Glucose 149 Intake and Output for Last 24 Hours 10/11/20 10/12/20 10/13/20 23:59 23:59 23:59 Intake Total 200 / 320 558.75 / 558.75 Output Total 1530 / 1550 120 / 120 Balance -1330 / -1230 438.75 / 438.75 Labs (Last 48 Hours) 10/12/20 10/12/20 10/12/20 04:42 04:42 04:42 WBC 4.2 L RBC 3.85 L Hgb 12.8 L Hct 38.7 L MCV 100.5 H MCH 33.2 H MCHC 33.1 RDW Std Deviation 57.4 H RDW Coeff of Carlos 15.7 H Plt Count 104 L MPV 10.9 Immature Gran % (Auto) 0.700 Neut % (Auto) 74.1 H Lymph % (Auto) 16.0 L [place] % (Auto) 8.8 Eos % (Auto) 0.2 Baso % (Auto) 0.2 Absolute Neuts (auto) 3.1 Absolute Lymphs (auto) 0.67 L Nucleated RBC % 0 PT 16.3 H INR 1.4 APTT 33.3 Specimen Type Sample Site pH Bicarbonate Actual Total CO2 Base Excess O2 Saturation O2 % ABG pCO2 ABG pO2 Shaquille Test VBG pH VBG pO2 VBG HCO3 VBG Total CO2 VBG O2 Sat (Calc) VBG Base Excess POC Mix VBG pCO2 Pt Tmp O2 Delivery Device Sodium 138 Potassium 4.7 Chloride 106 Carbon Dioxide 26.0 Anion Gap 6 BUN 70 H Creatinine 2.89 H Estim Creat Clear Calc 28.72 Est GFR (MDRD) Af Amer 29 L Est GFR (MDRD) Non-Af 24 L BUN/Creatinine Ratio 24.2 H Glucose 93 Calcium 7.9 L Total Bilirubin 2.90 H Direct Bilirubin 1.56 H AST 43 H ALT 21 Alkaline Phosphatase 209 H Ammonia Troponin I < 0.015 Total Protein 6.3 L Albumin 2.3 L Globulin 4.0 Albumin/Globulin Ratio Triglycerides Cholesterol LDL Cholesterol VLDL Cholesterol HDL Cholesterol Urine Color Urine Clarity Urine pH Ur Specific [place] Urine Protein Urine Glucose (UA) Urine Ketones Urine Occult Blood Urine Nitrite Urine Bilirubin Urine Urobilinogen Ur Leukocyte Esterase Urine RBC Urine WBC Ur Squamous Epith Cells Urine Bacteria Urine Mucus 10/12/20 10/12/20 10/12/20 04:42 04:45 04:53 WBC RBC Hgb Hct MCV MCH MCHC RDW Std Deviation RDW Coeff of Car[place] Plt Count MPV Immature Gran % (Auto) Neut % (Auto) Lymph % (Auto) [place] % (Auto) Eos % (Auto) Baso % (Auto) Absolute Neuts (auto) Absolute Lymphs (auto) Nucleated RBC % PT INR APTT Specimen Type AYE Sample Site pH Bicarbonate Actual Total CO2 Base Excess O2 Saturation O2 % ABG pCO2 ABG pO2 Shaquille Test VBG pH 7.40 VBG pO2 31 VBG HCO3 25 VBG Total CO2 26 VBG O2 Sat (Calc) 59 VBG Base Excess 0 POC Mix VBG pCO2 Pt Tmp 40.0 L O2 Delivery Device Room Air Sodium Potassium Chloride Carbon Dioxide Anion Gap BUN Creatinine Estim Creat Clear Calc Est GFR (MDRD) Af Amer Est GFR (MDRD) Non-Af BUN/Creatinine Ratio Glucose Calcium Total Bilirubin Direct Bilirubin AST ALT Alkaline Phosphatase Ammonia 300.0 H Troponin I Total Protein Albumin Globulin Albumin/Globulin Ratio Triglycerides Cholesterol LDL Cholesterol VLDL Cholesterol HDL Cholesterol Urine Color Yellow Urine Clarity Clear Urine pH 6.0 Ur Specific [place] 1.015 Urine Protein Negative Urine Glucose (UA) Normal Urine Ketones Negative Urine Occult Blood Negative Urine Nitrite Negative Urine Bilirubin Negative Urine Urobilinogen Normal Ur Leukocyte Esterase Negative Urine RBC 0 SEEN Urine WBC 0 SEEN Ur Squamous Epith Cells 0 SEEN Urine Bacteria 0 SEEN Urine Mucus 0 SEEN 10/12/20 10/12/20 10/12/20 16:58 22:03 22:03 WBC RBC Hgb Hct MCV MCH MCHC RDW Std Deviation RDW Coeff of [place] Plt Count MPV Immature Gran % (Auto) Neut % (Auto) Lymph % (Auto) [place] % (Auto) Eos % (Auto) Baso % (Auto) Absolute Neuts (auto) Absolute Lymphs (auto) Nucleated RBC % PT INR APTT Specimen Type ART Sample Site L Radial pH 7.53 H Bicarbonate Actual 26.1 H Total CO2 27 Base Excess 4 H O2 Saturation 96 O2 % 21 ABG pCO2 31.1 L ABG pO2 73 L Shaquille Test Positive VBG pH VBG pO2 VBG HCO3 VBG Total CO2 VBG O2 Sat (Calc) VBG Base Excess POC Mix VBG pCO2 Pt Tmp O2 Delivery Device Sodium 143 Potassium 5.0 Chloride 110 H Carbon Dioxide 24.0 Anion Gap 9 BUN 65 H Creatinine 3.32 H Estim Creat Clear Calc 25.00 Est GFR (MDRD) Af Amer 24 L Est GFR (MDRD) Non-Af 20 L BUN/Creatinine Ratio 19.6 Glucose 117 H Calcium 8.4 L Total Bilirubin 2.70 H Direct Bilirubin AST 49 H ALT 23 Alkaline Phosphatase 223 H Ammonia 448.0 H Troponin I Total Protein 6.9 Albumin 2.5 L Globulin 4.4 H Albumin/Globulin Ratio 0.6 L Triglycerides Cholesterol LDL Cholesterol VLDL Cholesterol HDL Cholesterol Urine Color Urine Clarity Urine pH Ur Specific [place] Urine Protein Urine Glucose (UA) Urine Ketones Urine Occult Blood Urine Nitrite Urine Bilirubin Urine Urobilinogen Ur Leukocyte Esterase Urine RBC Urine WBC Ur Squamous Epith Cells Urine Bacteria Urine Mucus 10/13/20 10/13/20 10/13/20 04:05 04:05 04:45 WBC 11.5 H RBC 4.13 L Hgb 13.7 Hct 42.2 MCV 102.2 H MCH 33.2 H MCHC 32.5 RDW Std Deviation 62.2 H RDW Coeff of Carlos 16.5 H Plt Count 136 L MPV 11.1 Immature Gran % (Auto) 0.800 Neut % (Auto) 79.5 H Lymph % (Auto) 7.5 L [place] % (Auto) 11.9 H Eos % (Auto) 0.1 Baso % (Auto) 0.2 Absolute Neuts (auto) 9.2 H Absolute Lymphs (auto) 0.87 Nucleated RBC % 0 PT INR APTT Specimen Type Sample Site pH Bicarbonate Actual Total CO2 Base Excess O2 Saturation O2 % ABG pCO2 ABG pO2 Shaqu[place] Test VBG pH VBG pO2 VBG HCO3 VBG Total CO2 VBG O2 Sat (Calc) VBG Base Excess POC Mix VBG pCO2 Pt Tmp O2 Delivery Device Sodium 142 Potassium 5.8 H Chloride 108 H Carbon Dioxide 21.0 Anion Gap 13 BUN 71 H Creatinine 3.81 H Estim Creat Clear Calc 21.78 Est GFR (MDRD) Af Amer 21 L Est GFR (MDRD) Non-Af 17 L BUN/Creatinine Ratio 18.6 Glucose 106 Calcium 8.5 Total Bilirubin 2.80 H Direct Bilirubin AST 78 H ALT 26 Alkaline Phosphatase 224 H Ammonia 317.0 H Troponin I Total Protein 6.9 Albumin 2.4 L Globulin 4.5 H Albumin/Globulin Ratio 0.5 L Triglycerides 93 Cholesterol 103 LDL Cholesterol 47 VLDL Cholesterol 19 HDL Cholesterol 37 L Urine Color Urine Clarity Urine pH Ur Specific [place] Urine Protein Urine Glucose (UA) Urine Ketones Urine Occult Blood Urine Nitrite Urine Bilirubin Urine Urobilinogen Ur Leukocyte Esterase Urine RBC Urine WBC Ur Squamous Epith Cells Urine Bacteria Urine Mucus Microbiology 10/13/20 02:30 Gastric Fluid/Contents Gastric Occult Blood - Final Occult Blood Positive Clinical Impression(s) from Imaging Studies Liver Ultrasound 10/12/20 07:33 IMPRESSION: Heterogeneous appearance of the liver. Thickened gallbladder wall. No definite gallstones are seen. Electronically Signed: Duke Duran, at 11:17 EST , Service support , Medical Necessity - Tobacco Use Smoking Status: Never smoker Assessment/Plan All Active Problems (Last Updated 10/12/20 @ 11:[address] 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 Discontinue IV fluids 2. Obtain hospice referral 3. Comfort measures as indicated 4. Await disposition IMPRESSIONS: 1. 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 Admitting ammonia was elevated at 300. Unfortunately, patient's abdominal x-ray appears to be consistent with a small bowel obstruction. Patient appears to have worsening control of airway. With discussions with the , hospice measures have been elected. Will place referral. Discontinue IV fluids. No further aggressive bowel measures. Comfort measures as indicated in the interim. 2. Chronic diastolic CHF/chronic A. fib Patient does appear to be slightly volume overloaded. Patient has been transition to Lasix therapy. We will need to watch electrolytes closely. Patient is currently rate controlled. 3. Obesity/hypertension/hyperlipidemia/CKD stage IV/poor history/ZAID Complicates care, management, recovery and prognosis. Okay to continue with baseline medications. Unclear if patient would be able to protect his airway with positive airway pressure, so we will hold off on AVAPS for now. Inpatient E&M: 37162 Subs Hosp L2
[2020-10-13 08:33] LABS: Base Excess -4 mmol/L (-2 to +2); Bicarbonate 21.9 mmol/L (22-26); Blood Gas Specimen Type ART; O2 Delivery Device Cannula; PO2 78 mmHG (75-100); SITE L Radial; SO2 95 % (95-99); Total Carbon Dioxide 23 mmol/L; pCO2 40.4 mmHg (35-45); pH 7.34 (7.35-7.45)
[2020-10-13] MEDS: Morphine 2 MG/ML Syringe IV (10:25)
[2020-10-13] MEDS: 0.9% Saline Lock 10 ML Syringe IV (10:26)
--- NOTE | 2020-10-13 11:07 | CASEMGMT ---
Social Work SW attended ICU rounds. Physician stating he has spoke with this morning and would like hospice services for pt and that pt is appropriate for the Inpatient Unit. Phone call to Darling at [facility] and referral made and clinicals faxed. RAJI informed Dr. Heredia that physician to physician will be needed with Dr. Douglas and Dr. Heredia agreeable. Return call from Fabiola at [facility] and pt has been accepted and transportation has been arranged for 1300 pickup. Hospice nurse has spoke with pt and will notify of discharge time. Nursing updated on discharge plan. Plan: [facility] at [address]
--- NOTE | 2020-10-13 12:09 | DS.PCM_ITS ---
Discharge Date and Diagnosis - Problem List Patient Problems: Active and Suspected Problems (Last Updated 10/12/20 @ 11:[address] Darline Turcios MD) Hepatic encephalopathy (Acute) Date of Admission: 10/12/20 Date of Discharge: 10/13/20 - Primary Discharge Diagnosis Acute Problems: Active Problems (Last Updated 10/12/20 @ 11:[address] Darline Turcios MD) #1 acute severe hepatic encephalopathy. #2 hyperammonemia. - Secondary Discharge Diagnosis Chronic Problems: Chronic Problems (Last Updated 10/12/20 @ 11:[address] Darline Turcios MD) Thrombocytopenia (Chronic) Pulmonary fibrosis (Chronic) Longstanding persistent atrial fibrillation (Chronic) Atherosclerotic heart disease of [place] coronary artery without angina pectoris (Chronic) Kidney disease, chronic, stage III (moderate, EGFR 30-59 ml/min) (Chronic) Cirrhosis of liver (Chronic) IBS (irritable bowel syndrome) (Chronic) Hepatitis B (Chronic) Arthritis (Chronic) Ascites (Chronic) Benign essential hypertension (Chronic) CHF (congestive heart failure) (Chronic) VTE (venous thromboembolism) (Chronic) CAD (coronary artery disease) (Chronic) Long-term use of high-risk medication (Chronic) Obesity (BMI 30-39.9) (Chronic) Valvular heart disease (Chronic) Restrictive airway disease (Chronic) HLD (hyperlipidemia) (Chronic) Non-ischemic cardiomyopathy (Chronic) PAF (paroxysmal atrial fibrillation) (Chronic) DCCV in August 2017; Obesity (BMI 30-39.9) (Chronic) ZAID (obstructive sleep apnea) (Chronic) DVT (deep venous thrombosis) (Chronic) Hospital Course and Treatment Imaging Results: Clinical Impression(s) from Imaging Studies Brain CT 10/12/20 04:12 IMPRESSION: No acute intracranial abnormality. If there is a high clinical suspicion of acute infarction consider MRI. Electronically Signed: Christopher Mays MD at 4:36 EST , Service support , ADDENDUM: 10/12/20 0585 IMPRESSION: No acute intracranial abnormality. If there is a high clinical suspicion of acute infarction consider MRI. N.B. : The above information has been verbally conveyed by Christopher Mays MD to Dr. Mark Valdez MD, on 10/12/2020 05:03:20 (ET). Electronically Signed: Christopher Mays MD at 4:36 EST , Service support , Chest X-Ray 10/12/20 04:12 IMPRESSION: Right midlung subsegmental atelectasis versus pneumonia. Otherwise no significant change in findings of chronic interstitial lung disease. Electronically Signed: Christopher Mays MD at 5:26 EST , Service support , Head/Neck CTA 10/12/20 04:13 IMPRESSION: Hypoplastic or occluded distal left vertebral artery. Atherosclerotic calcification of the distal right vertebral artery. Otherwise normal [place]. Atherosclerotic calcification of the carotid bulb and proximal internal carotid arteries without a high-grade stenosis. Otherwise normal carotid arteries. N.B. : The above information has been verbally conveyed by Christopher Mays MD to Dr. Mark Valdez MD, on 10/12/2020 04:40:05 (ET). Electronically Signed: Christopher Mays MD at 5:03 EST , Service support , ADDENDUM: 10/12/20 0510 IMPRESSION: Hypoplastic or occluded distal left vertebral artery. Atherosclerotic calcification of the distal right vertebral artery. Otherwise normal [place]. Atherosclerotic calcification of the carotid bulb and proximal internal carotid arteries without a high-grade stenosis. Otherwise normal carotid arteries. N.B. : The above information has been verbally conveyed by Christopher Mays MD to Dr. Mark Valdez MD, on 10/12/2020 04:40:05 (ET). Electronically Signed: Christopher Mays MD at 5:03 EST , Service support , KUB X-Ray 10/12/20 05:24 IMPRESSION: Nasogastric tube tip in gastric fundus. Mildly dilated loops of small bowel left abdomen which could represent an early small bowel obstruction versus an adynamic ileus. Electronically Signed: Christopher Mays MD at 6:28 EST , Service support , Liver Ultrasound 10/12/20 07:33 IMPRESSION: Heterogeneous appearance of the liver. Thickened gallbladder wall. No definite gallstones are seen. Electronically Signed: Duke Hahntara, at 11:17 EST , Service support , Dr. Heredia, critical care. Operations: None Procedures: None Summary of Care Provided: The patient is a 65 year old M presented to the emergency room because of lethargy, not following commands and reported strokelike symptoms. Initially, there was a concern that patient may had acute stroke. CT scan brain showed no acute infarct or hemorrhage. CTA of the the neck revealed hypoplastic or occluded distal left vertebral artery, normal [place]. SOC tele- neurology was consulted and patient was not a candidate for TPA. He had a history of liver cirrhosis and he was found to have severe hyperammonemia with serum ammonia of 300. Patient was cytologic and sleepy, minimally arousable to deep stimulation. He was admitted to ICU, NG tube was inserted and he was started on lactulose and rifaximin. Patient's condition continued to decline, he became very unresponsive, very difficult to arouse, very encephalopathic. Although his vitals were not too bad, he was afebrile, blood pressure and heart rate are stable, pulse ox was 90% on 2 L. But patient was very lethargic, not arousable. With rifaximin and lactulose, patient had small bowel movement. His ammonia just kept worsening and repeat ammonia was 448. His kidney function started to worsen from his baseline as he does have history of chronic kidney disease. Patient's general condition was progressively declining. The nighttime on-call hospitalist spoke with the patient's after patient's condition declined. Patient's stated that patient does not want to be kept on artificial life support. She changed him to DNR CC, comfort care only. She agreed to have hospice and palliative care team evaluate the patient. Patient was evaluated by hospice and palliative care and he was appropriate for hospice in medical facility. Patient was transferred to hospice as inpatient. Patient Problems: Active and Suspected Problems (Last Updated 10/12/20 @ 11:[address] Darline Turcios MD) Hepatic encephalopathy (Acute) - Physical Exam Vitals/I&O's: Vital Signs Temp Pulse Resp BP Pulse Ox 97.0 F L 96 39 H 135/72 H 93 10/13/20 07:00 10/13/20 07:00 10/13/20 07:00 10/13/20 07:00 10/13/20 11:07 Oxygen Flow Rate (L/min) 2 Oxygen Delivery Method Nasal Cannula Weight: 272 lb 14.916 oz Body Mass Index (BMI) 37.6 Finger Stick Blood Glucose 149 Intake and Output for Last 24 Hours 10/11/20 10/12/20 10/13/20 23:59 23:59 23:59 Intake Total 200 / 320 558.75 / 558.75 Output Total 1530 / 1550 120 / 120 Balance -1330 / -1230 438.75 / 438.75 General: - - Very sleepy, not arousable, not responding to deep painful stimuli, [place] Coma Scale is 0. HEENT: Atraumatic, PERRLA, Normocephalic Oral: Moist Mucosa, No Gingival or Mucosal Lesions/ Ulcerations Neck: Supple, No JVD, Trachea Midline Lungs: No wheeze, Diminished, Rhonchi, Short of Breath Cardiovascular: Regular rate, Regular Rhythm, Normal S1, Normal S2, PMI Normal Abdomen: Bowel Sounds Present, Soft, Non Tender, Non-Distended, Obese Extremities: No clubbing, No cyanosis, Edema Skin: No rashes, No breakdown Lymphatic: No Cervical, Supraclavicular, or Inguinal Adenopathy Neurological: - - Unable to assess, [place] Coma Scale was 0. Psych/Mental Status: - - Unable to assess. Microbiology Past 72 Hours 10/13/20 02:30 Gastric Fluid/Contents Gastric Occult Blood - Final Occult Blood Positive Laboratory Results 10/12/20 16:58: Specimen Type ART, Sample Site L Radial, pH 7.53 H, Bicarbonate Actual 26.1 H, Total CO2 27, Base Excess 4 H, O2 Saturation 96, O2 % 21, ABG pCO2 31.1 L, ABG pO2 73 L, Shaquille Test Positive 10/12/20 22:03: Ammonia 448.0 H 10/12/20 22:03: Sodium 143, Potassium 5.0, Chloride 110 H, Carbon Dioxide 24.0, Anion Gap 9, BUN 65 H, Creatinine 3.32 H, Estim Creat Clear Calc 25.00, Est GFR (MDRD) Af Amer 24 L, Est GFR (MDRD) Non-Af 20 L, BUN/Creatinine Ratio 19.6, Glucose 117 H, Calcium 8.4 L, Total Bilirubin 2.70 H, AST 49 H, ALT 23, Alkaline Phosphatase 223 H, Total Protein 6.9, Albumin 2.5 L, Globulin 4.4 H, Albumin/Globulin Ratio 0.6 L 10/13/20 02:19: Specimen Type ART, Sample Site L Radial, pH 7.34 L, Bicarbonate Actual 21.9 L, Total CO2 23, Base Excess -4 L, O2 Saturation 95, ABG pCO2 40.4, ABG pO2 78, O2 Delivery Device Cannula, Liter Flow 2.0 10/13/20 04:05: WBC 11.5 H, RBC 4.13 L, Hgb 13.7, Hct 42.2, MCV 102.2 H, MCH 33.2 H, MCHC 32.5, RDW Std Deviation 62.2 H, RDW Coeff of Carlos 16.5 H, Plt Count 136 L, MPV 11.1, Immature Gran % (Auto) 0.800, Neut % (Auto) 79.5 H, Lymph % (Auto) 7.5 L, [place] % (Auto) 11.9 H, Eos % (Auto) 0.1, Baso % (Auto) 0.2, Absolute Neuts (auto) 9.2 H, Absolute Lymphs (auto) 0.87, Nucleated RBC % 0 10/13/20 04:05: Sodium 142, Potassium 5.8 H, Chloride 108 H, Carbon Dioxide 21.0, Anion Gap 13, BUN 71 H, Creatinine 3.81 H, Estim Creat Clear Calc 21.78, Est GFR (MDRD) Af Amer 21 L, Est GFR (MDRD) Non-Af 17 L, BUN/Creatinine Ratio 18.6, Glucose 106, Calcium 8.5, Total Bilirubin 2.80 H, AST 78 H, ALT 26, Alkaline Phosphatase 224 H, Total Protein 6.9, Albumin 2.4 L, Globulin 4.5 H, Albumin/Globulin Ratio 0.5 L, Triglycerides 93, Cholesterol 103, LDL Cholesterol 47, VLDL Cholesterol 19, HDL Cholesterol 37 L 10/13/20 04:45: Ammonia 317.0 H Current Medications Albuterol Sulfate (Albuterol 2.5 Mg/3 Ml Vial.Neb.) 2.5 mg INHALATION Q2H PRN PRN PRN Reason: SOB/Wheezing Atropine Sulfate (Atropine Sulfate 1% 2 Ml Bottle) 4 drop PO Q3H PRN PRN PRN Reason: CONGESTION Last Admin: 10/13/20 10:26 Dose: 4 drop Documented by: Heparin Sodium (Porcine) (Heparin Injection (Vial) 5,000 Unit/Ml Vial) 5,000 unit SC Q8 [facility] Last Admin: 10/13/20 06:34 Dose: Not Given Documented by: Hydralazine HCl (Hydralazine 20 Mg/Ml Vial) 10 mg IV Q4H PRN PRN PRN Reason: SBP >160 Sodium Chloride () 250 mls @ 15 mls/hr IV .[id number] PRN PRN Reason: Saline Flush Sodium Chloride () 250 mls @ 15 mls/hr IV .[id number] PRN PRN Reason: Additional IVPB Infusion Pantoprazole Sodium 40 mg/ (Sodium Chloride) 110 mls @ 330 mls/hr IV Q12 [facility] Last Infusion: 10/13/20 03:11 Dose: Infused Documented by: Dextrose/Sodium Chloride (Dextrose 5%/0.9% Nacl) 1,000 mls @ 75 mls/hr IV .[id number] [facility] Last Infusion: 10/13/20 07:30 Dose: 0 mls/hr Documented by: Labetalol HCl (Labetalol (Prefilled) 20 Mg/4 Ml) 10 - 20 mg IV Q10M PRN PRN PRN Reason: to Maintain BP Goals Lactulose (Lactulose 20 Gm/30 Ml Udc) 20 gm NG BID [facility] Last Admin: 10/12/20 20:26 Dose: 20 gm Documented by: Ondansetron HCl (Ondansetron 4 Mg/2 Ml Vial) 4 mg IV Q8H PRN PRN PRN Reason: NAUSEA/VOMITING Polyethylene Glycol (Polyethylene Glycol 3350 17 Gm Packet) 17 gm PO BID [facility] Last Admin: 10/12/20 23:31 Dose: 17 gm Documented by: Rifaximin (Rifaximin 550 Mg Tablet) 550 mg NG BID [facility] Last Admin: 10/12/20 20:16 Dose: Not Given Documented by: Sodium Chloride (0.9% Saline Lock 10 Ml Syringe) 10 - 40 ml IV UD PRN PRN Reason: SALINE FLUSH Last Admin: 10/13/20 10:26 Dose: 10 ml Documented by: Home Medications: Medications to take at Discharge Handicap Placard See Rx Instructions .ROUTE .MEDSUPPLY #1 ea 09/22/19 metoprolol tartrate 100 mg tablet 100 mg PO BID #180 tab 10/18/19 potassium chloride 10 mEq capsule,extended release 20 meq PO BID #120 cap 12/15/19 spironolactone 25 mg tablet 12.5 mg PO BID #90 tab 03/28/20 torsemide 20 mg tablet 20 mg PO BID tab 05/01/20 Pantoprazole Sodium [Protonix] 40 mg PO DAILY 08/21/20 Levofloxacin [Levaquin] 750 mg PO DAILY #6 tab 09/28/20 oxycodone-acetaminophen 5 mg-325 mg tablet 1 tab PO Q6H PRN PRN 10/11/20 Amiodarone HCl [Pacerone] 100 mg PO DAILY 10/12/20 Primary Care Physician: Donnie Vo DO [NON-STAFF] - Disposition: Hospice Medical Facility Minutes spent on discharge:: 32 Patient Condition:: Poor Medical Necessity - Tobacco Use Smoking Status: Never smoker Meaningful Use Info Meaningful Use Diagnoses (Choose all that apply): None applicable Inpatient E&M: 64004 Disch Hosp
[2020-10-13] MEDS: HYDROmorphone 1 MG/ML Syringe IV (12:45)
== END 2020-10-13 13:35 | disposition hospice, inpatient (51) | DRG 279 ==
LOC: ED 05:31 → ICU 06:41
PROVIDERS: Admitting Provider Internal Medicine; Emergency Provider Emergency Medicine; PCP Internal Medicine; Visit Provider Hospitalist
DX: K72.00 Acute and subacute hepatic failure without coma (principal); N17.9 Acute kidney failure, unspecified; D69.6 Thrombocytopenia, unspecified; D70.9 Neutropenia, unspecified; D63.8 Anemia in other chronic diseases classified elsewhere; N18.4 Chronic kidney disease, stage 4 (severe); E78.5 Hyperlipidemia, unspecified; G47.33 Obstructive sleep apnea (adult) (pediatric); J84.10 Pulmonary fibrosis, unspecified; I65.02 Occlusion and stenosis of left vertebral artery; I13.0 Hypertensive heart and chronic kidney disease with heart failure and stage 1 through stage 4 chronic kidney disease, or unspecified chronic kidney disease; I50.32 Chronic diastolic (congestive) heart failure; Z79.899 Other long term (current) drug therapy; B18.1 Chronic viral hepatitis B without delta-agent; E66.9 Obesity, unspecified; Z68.38 Body mass index [BMI] 38.0-38.9, adult; K74.60 Unspecified cirrhosis of liver; Z66 Do not resuscitate
CPT/HCPCS: 36600; 51702; 70450; 70496; 70498; 71045; 74018; 76705; 80048; 80053; 80061; 80076; 81001; 82140; 82271; 82803; 84484; 85025; 85610; 85730; 92507; 92610; 93005; 93306; 94640; 99251; 99285; Q9957; Q9967; A4216; C8929; G0463; J1940